=== PATIENT | female | born 1965 | race Caucasian/White ===

== ENCOUNTER 2023-07-24 14:50 | Outpatient (AMB) | payer OTHER, SELFPAY ==
[2023-07-24 15:38] VITALS: BP 122/68; PULSE 87; TEMP 36.7; O2SAT 99; BMI 39.6
--- NOTE | 2023-07-24 15:38 | AM.OFFWIN_ITS ---
Intake Vital Signs 07/24/23 15:38 Height 5 ft 5 in Weight 238 lb 4 oz BMI 39.6 BP 122/68 Blood Pressure Location Lt brachial Position Sitting Pulse 87 Pulse Source Pulse Oximeter Temp 98.0 F Temp Source Temporal Artery Scan Pulse Oximetry (%) 99 Oxygen Delivery Method Room Air Intake Visit Reasons: EP, fatigue, headache Intake Note: pt is here for c/o fatigue and headache states she was in [place] was diagnosed with pneumonia and feels like it might have came back Patient Tobacco Use Status: Never used Tobacco Allergies No Known Allergies Allergy (Verified 07/24/23 15:58) Medication List - Last Reconciled 07/24/23 by Naeem Kearney MD atorvastatin 80 mg PO DAILY blood-glucose sensor (Dexcom G6 Sensor device) As directed blood-glucose transmitter (Dexcom G6 Transmitter device) As directed bupropion HCl 300 mg PO QAM clonidine HCl 0.1 mg PO BID dapagliflozin propanediol (Farxiga) 5 mg PO DAILY dulaglutide (Trulicity) 1.5 mg subcut QWEEK gabapentin 300 mg PO TID gabapentin 200 mg PO BEDTIME hydroxyzine HCl 10 mg PO DAILY PRN hyoscyamine sulfate 0.125 mg PO QID PRN insulin aspart U-100 (Novolog FlexPen U-100 Insulin aspart) subcut insulin glargine (Basaglar KwikPen U-100 Insulin) 55 units subcut BEDTIME lisinopril 10 mg PO DAILY pantoprazole 20 mg PO QAM tramadol 50 mg PO Q6H PRN trazodone 100 mg PO BEDTIME Do you need a note to return to daycare/school/sports/work: Yes HPI EP, fatigue, headache HPI Details 58-year-old female presents to the [facility] for a sick visit. Patient is reporting exertional shortness of breath for the past week. She was in [place] a week to 10 days ago when she was hospitalized for diabetic ketoacidosis and pneumonia. She was discharged home and she flew 8 hours. Subsequent to her arrival here, her shortness of breath symptoms seem to have worsened. She came in with a walker. 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 Current occupational exposures/hazards: No Cognitive needs: No Hearing needs: No Vision needs: No Physical Exam Vital Signs: Last Vital Signs Temp 98.0 F 07/24/23 15:38 Pulse 87 07/24/23 15:38 BP 122/68 07/24/23 15:38 Pulse Ox 99 07/24/23 15:38 Oxygen Delivery Method Room Air 07/24/23 15:38 BMI result Body Mass Index 39.6 Const General: cooperative and healthy appearing Nutritional Appearance: well nourished Orientation/consciousness: patient oriented x3 Limitations: no limitations HEENT Head: Yes normal to inspection Eyes General: appearance normal, both eyes and all related structures Neck Neck: Yes normal visual inspection Chest Chest palpation & inspection: normal palpation of entire chest wall Resp Effort & Inspection: normal respiratory effort Cardio Other: Tachycardia. Neuro General: patient oriented x3 Assessment & Plan Assessment & Plan (1) Shortness of breath: Code(s): R06.02 - Shortness of breath Plan: With recent air travel, pulmonary embolism should be ruled out. Patient was referred to the emergency room to get her high-resolution CT scan. ER triage was notified of patient's arrival. Coding Level of Care Code Est Pt Level 4 (57275) Diagnoses Shortness of breath R06.02
== END 2023-07-24 16:22 | disposition home or self-care (01) ==
PROVIDERS: PCP Nurse Practitioner Family; Visit Provider Internal Medicine
DX: R06.02 Shortness of breath (principal)
CPT/HCPCS: 99214

== ENCOUNTER 2023-07-24 16:24 | Inpatient (IN) | payer BC, SELFPAY ==
--- NOTE | ~2023-07-24 | XR_ITS ---
EXAMINATION: XR CHEST CLINICAL INFORMATION: Shortness of breath. COMPARISON: None available. TECHNIQUE: 2 views of the chest were obtained. FINDINGS: The lung volumes are low. The cardiomediastinal silhouette is within normal limits. There is right upper lobe consolidation. The bony structures and soft tissues are unremarkable XR/XR chest 2V IMPRESSION: Right upper lobe consolidation. Suspect pneumonia. Correlation and follow-up needed.
--- NOTE | ~2023-07-24 | US_ITS ---
EXAMINATION: US VENOUS WITH DOPPLER UPPER EXTREMITY, RIGHT CLINICAL INFORMATION: Right arm swelling. COMPARISON: None available. TECHNIQUE: Ultrasound of the upper extremity is performed using compression sonography and color and pulse Doppler flow with assessment of augmentation of flow. There is also imaging and Doppler assessment of the jugular and subclavian veins. Spectral analysis with color-flow imaging is performed. FINDINGS: Respiratory variation, normal compression, and augmented flow are noted throughout the upper extremity including the axillary, brachial, cephalic, and radial and ulnar veins. There is normal flow in the internal jugular and subclavian veins. There is no visible deep or superficial thrombophlebitis. If the patient's symptoms progress, a followup ultrasound in 5 -7 days might be of value to exclude proximal propagation from a nonvisualized distal arm vein. US/US venous duplex UE RT IMPRESSION: No DVT demonstrated in the right upper extremity.
--- NOTE | ~2023-07-24 | CT_ITS ---
EXAMINATION: CT ANGIOGRAM OF THE CHEST WITH AND WITHOUT CONTRAST (CT PULMONARY ANGIOGRAM FOR PE) CLINICAL INFORMATION: Reason for Exam shortness of breath, dizziness, elevated dimer COMPARISON: Chest x-ray from the same day TECHNIQUE: Prior to contrast administration, noncontrast localization images were obtained. Subsequently, multidetector volumetric imaging was performed from the thoracic inlet to below the diaphragms following the administration of 65 mL Omnipaque 350 intravenous contrast. No contrast reaction reported Sagittal, coronal, and MIP oblique sagittal reformatted images were obtained on the CT workstation, uploaded to PACS, and reviewed. This CT examination was performed using dose optimization techniques as appropriate, variously including the following: *Automated exposure control *Adjustment of mA and/or kV according to patient size (this includes techniques or standardized protocols for targeted exams where dose is matched to indication/reason for exam; i.e. extremities or head) *Use of iterative reconstruction technique Total exam dose-length product 471 mGy-cm FINDINGS: QUALITY OF STUDY/CONTRAST BOLUS: Satisfactory. PULMONARY ARTERIES: No pulmonary emboli. THORACIC AORTA: No evidence of aneurysm or dissection. Mild scattered atherosclerotic calcification. LUNG: There is extensive consolidation throughout the right upper lobe and to a lesser extent patchy consolidation in the right middle lobe. PLEURA: No pleural effusion or pneumothorax. MEDIASTINUM: The visualized thyroid gland is unremarkable. There are subcentimeter mediastinal lymph nodes within the range of normal variation. Mild cardiomegaly without pericardial effusion. CORONARY ARTERY CALCIFICATION: Present CHEST WALL/AXILLA: No axillary or internal mammary lymphadenopathy. OSSEOUS STRUCTURES: No acute or suspicious osseous abnormality. UPPER ABDOMEN: Visualized spleen appears mildly enlarged. Patient is status post cholecystectomy. No reflux of contrast into the hepatic veins to suggest elevated right heart pressures. CT/CT angio chest PE protocol IMPRESSION: 1. No pulmonary embolus identified. 2. Extensive consolidation throughout the right upper lobe and to a lesser extent patchy consolidation in the right middle lobe, suspicious for pneumonia. Imaging follow-up is recommended to assess for resolution. VTE: negative.
[2023-07-24 17:13] VITALS: BP 113/56; PULSE 89; RESP 20; TEMP 36.3; O2SAT 100; BMI 39.8
--- NOTE | 2023-07-24 17:15 | ED.GENADULT ---
HPI - General Adult General Chief complaint: Dyspnea Stated complaint: SOB, blood clot ? Time Seen by Provider: 07/24/23 18:46 Source: patient Mode of arrival: ambulatory Limitations: no limitations History of Present Illness HPI narrative: Patient is a 58-year-old female who presents emergency department for evaluation of shortness of breath. She recently traveled to [place], approximately 2 weeks prior she tested positive for COVID-19, she continued to have symptoms, she was evaluated at an urgent care 07/03/2023 and diagnosed with COVID bronchitis for which she was treated with an inhaler and Tessalon. She presents with discharge paperwork from a hospital in [place] she was admitted there 07/10/2023-07/18/2023 for DKA, sepsis secondary to CAP with positive strep pneumo ur ag, negatuve ur legionella, was treated with a 7 day course of ceftriaxone 2 g IV, NSTEMI with Trop peak 51. She traveled home 07/19/2023 by plane. She states for a few days she was noting improvement in her shortness of breath. Today she noticed suddenly worsening shortness of breath, was unable to complete taking a shower due to her difficulty breathing, she continues to have a productive cough, denies fevers or chills, she has notable weakness, at baseline she has limited mobility due to chronic pain secondary to Charcot foot. She also endorses that she has continued to experience lightheadedness and dizziness, upon review she was having orthostatic hypotension wall hospitalized, 1 of her blood pressure medications were discontinued. Related Data Home Medications Medication Instructions Recorded Confirmed atorvastatin 80 mg tablet 80 mg PO DAILY 02/28/23 07/24/23 blood-glucose sensor (Dexcom G6 #1 ea 02/28/23 02/28/23 Sensor device) blood-glucose transmitter (Dexcom #1 ea 02/28/23 02/28/23 G6 Transmitter device) bupropion HCl 300 mg 24 hr tablet, 300 mg PO QAM 02/28/23 07/24/23 extended release clonidine HCl 0.1 mg tablet 0.1 mg PO BID 02/28/23 07/24/23 dulaglutide 1.5 mg/0.5 mL 1.5 mg subcut QWEEK 02/28/23 07/24/23 subcutaneous pen injector ([facility]) gabapentin 300 mg capsule 300 mg PO TID 02/28/23 07/24/23 hydroxyzine HCl 10 mg tablet 10 mg PO DAILY PRN Anxiety 02/28/23 07/24/23 hyoscyamine sulfate 0.125 mg tablet 0.125 mg PO QID PRN cramps 02/28/23 07/24/23 insulin aspart U-100 100 unit/mL subcut 02/28/23 02/28/23 (3 mL) subcutaneous pen (Novolog FlexPen U-100 Insulin aspart) insulin glargine 100 unit/mL (3 55 unit subcut BEDTIME 02/28/23 02/28/23 mL) subcutaneous pen (Basaglar KwikPen U-100 Insulin) pantoprazole 20 mg tablet,delayed 20 mg PO QAM 02/28/23 07/24/23 release tramadol 50 mg tablet 50 mg PO Q6H PRN Pain 02/28/23 07/24/23 trazodone 100 mg tablet 100 mg PO BEDTIME 02/28/23 07/24/23 Allergies Allergy/AdvReac Type Severity Reaction Status Date / Time No Known Allergies Allergy Verified 07/24/23 15:58 Review of Systems Review of Systems: Yes all other systems are reviewed and are negative [facility]LY [facility] Past Medical History Attestation statement: The following information was validated with the patient. Source: old records reviewed Medical History Pneumonia Sepsis Barretts esophagus Dyslipidemia HTN (hypertension) Charcot's joint of foot Diabetes Surgical History H/O: hysterectomy Family History Family History Son Substance use disorder Father Substance use disorder Mother Substance use disorder Family/Other Substance use disorder Social History Social History Housing: Condominium Patient Tobacco Use Status: Never used Tobacco e-Cigarette/Vaping Use: Never Used Second Hand Smoke Exposure: No Advance Directives: No Advance Directives Information Provided: No service: No Current occupational status: employed 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 No acute distress.?Normal affect. Eyes: Pupils equal, round and reactive to light.? ENT: Pharynx normal.?? Neck: Normal inspection.? Neck supple.?? CVS: Heart sounds normal. Normal heart rate and rhythm.? Pulses normal.?? Respiratory: No respiratory distress.? Lung sounds with rhonchi bilaterally, diminished bases Abdomen: Soft and non-tender. Normoactive bowel sounds. Skin: Skin warm and dry.? Normal skin color.? Extremities: No lower extremity edema.? No calf ttp? Neuro: Moves all extremities spontaneously. Sensation intact bilaterally. No focal neuro deficits. Ambulates with slow unsteady gait Course Course Course Narrative: This is a rapid medical exam. Deferred additional HPI, ROS, PE to primary provider. 58 yo female with history of DM, HTN, HLD, GERD here with complaint of SOB. Recent admit in [place] for DKA, CAP. Flew home one week ago. Went to with concern for SOB and referred in further evaluation. Will obtain labs, CXR, EKG, viral testing VSS Reevaluation(s) Reevaluation #1: CBC is without leukocytosis, there is a normocytic anemia not needing transfusion criteria. CMP revealing BUN of 26 creatinine 1.03 without prior labs available for comparison. No lactic acidosis. High sensitive troponin is negative. BNP within normal range. Chest x-ray revealing a right upper lobe infiltrate, in the setting of recent pneumonia as per HPI, this is consistent, however given that she had improvement of her symptoms and sudden worsening of her symptoms today with recent travel and immobilization will obtain D-dimer to exclude pulmonary embolism as alternative etiology for symptoms. Given recent cap, will cover with Rocephin at this time, does not meet SIRS criteria, not consistent with sepsis. Attempted ambulatory O2 trial with patient, she is notably dyspnea, O2 saturation as low as 88% on room air. Reevaluation #2: D-dimer is elevated, will obtain CT angio of the chest to exclude pulmonary embolism . Reviewed this case with hospitalist, Dr. Fernández, who accepts patient for admission to medicine service. She is agreeable with hospital admission. Time: 21:12 Reevaluation #3: CT angio negative for pulmonary embolism. Medications Administered Generic Name Dose Route Start Last Admin Trade Name Freq PRN Reason Stop Dose Admin Acetaminophen 650 mg 07/24/23 22:24 07/25/23 00:21 Acetaminophen 325 Mg Tablet PO 650 mg Q6H PRN Administration Pain, Mild (Pain Scale 1-3) Sodium Chloride 1,000 mls @ 100 mls/hr 07/24/23 22:30 07/25/23 00:10 Ns IVCONT 100 mls/hr .Q10H BELLA Administration Insulin Glargine 38 unit 07/24/23 22:45 07/25/23 00:09 Insulin Glargine,Hum.Rec.Anlog 100 Unit/Ml 10 Ml Vial SUBCUT 38 unit BEDTIME BELLA Administration Sodium Chloride 3 ml 07/25/23 00:00 07/25/23 00:12 0.9 % Sodium Chloride Flush 3 Ml Syringe IVFLUSH 3 ml QSHIFT BELLA Administration Discontinued Medications Generic Name Dose Route Start Last Admin Trade Name Freq PRN Reason Stop Dose Admin Ceftriaxone Sodium 2 gm/ 50 mls @ 100 mls/hr 07/24/23 21:11 07/24/23 22:30 Sodium Chloride IV 07/24/23 21:40 Infused ONCE ONE Infusion Iohexol 65 ml 07/24/23 23:34 07/24/23 23:34 Iohexol 350 Mg/Ml 100 Ml Infus..Btl IV 07/24/23 23:35 65 ml ONCE ONE Administration Medical Decision Making Medical Decision Making [facility] Narrative: Patient is a 58-year-old female with past medical history of type 2 diabetes, hyperlipidemia, Amos's esophagus, hypertension, GERD, anxiety, depression presented to emergency department with worsening shortness of breath after recent admission for sepsis secondary to cap as per HPI. Her family is present at bedside and they notice that she is increasingly weak, and having a hard time breathing with minimal exertion. She was treated with a 7 day course of ceftriaxone 2 g daily and did not receive any oral antibiotics upon discharge. She was having improvement in her symptoms until today when things seem to be worsening again. Will obtain CBC to evaluate for leukocytosis/ anemia, CMP and lipase to evaluate for abnormal electrolytes /abnormal renal function/ abnormal hepatic/biliary function, EKG and troponin to evaluate for ischemia/ACS. Chest x-ray to evaluate for consolidation/ infiltrate/ mass/ pulmonary congestion and Urinalysis. Differential Diagnosis Differential Diagnoses: The differential diagnosis associated with the presentation includes (Pneumonia, ACS, pulmonary embolism, viral syndrome) Admission/Observation Consideration of admission/observation: Escalation of care including admission/observation considered (As per course narrative) Consult Healthcare Provider Management of the patient was discussed with: Hospitalist (As per course narrative) Lab Data MDM Lab Attestation statement: I reviewed the patient's lab results. (As per course narrative) 07/24/23 17:59 07/24/23 17:59 Labs: Lab Results 07/24/23 07/24/23 Range/Units 17:59 21:11 WBC 8.6 (4.8-10.8) X10*3/uL RBC 3.70 L (4.20-5.50) X10*6/uL Hgb 10.0 L (12.0-16.0) g/dl Hct 32.0 L (37.0-47.0) % MCV 86.5 (80.0-98.0) fL MCH 27.0 (27.0-33.0) pg MCHC 31.3 (31.0-35.0) g/dl RDW 14.5 (11.0-16.0) % Plt Count 369 (160-400) X10*3/uL MPV 8.5 L (9.4-12.3) fL Immature Gran % (Auto) 0.4 (0.0-0.4) % Neut % (Auto) 54.5 (45-73) % Lymph % (Auto) 37.0 (20-40) % Meriwether % (Auto) 4.3 (2-11) % Eos % (Auto) 2.9 (0-4) % Baso % (Auto) 0.9 (0-2) % Lymph # (Auto) 3.2 (1.2-4.9) X10*3/uL Meriwether # (Auto) 0.4 (0.1-1.2) X10*3/uL Eos # (Auto) 0.3 (0.0-0.4) X10*3/uL Baso # (Auto) 0.1 (0.0-0.2) X10*3/uL Abs Immat Gran (auto) 0.03 (0.00-0.03) X10*3/uL Absolute Neuts (auto) 4.7 (2.0-8.3) x10*3/uL Absolute Nucleated RBC 0.000 (0.0-0.012) X10*3/uL Nucleated RBC % (auto) 0.0 (0.0-0.2) /100WBC PT 11.7 (11.1-13.3) SEC INR 1.0 (0.9-1.1) D-Dimer High Sensitivty 373 NG/ML Sodium 138 (135-145) mmol/L Potassium 5.0 (3.3-5.1) mmol/L Chloride 108 (96-108) mmol/L Carbon Dioxide 22 (22-29) mmol/L Anion Gap 13 (12-20) BUN 26 H (9-16) mg/dL Creatinine 1.03 (0.5-1.4) mg/dL Estim Creat Clear Calc 73.8 Estimated GFR 55 POC Glucose 71 (60-115) mg/dL Random Glucose 127 H (60-115) mg/dL Lactic Acid 1.7 (0.5-2.0) mmol/L Calcium 9.7 (8.4-10.2) mg/dL Magnesium 1.8 (1.6-2.6) mg/dL Total Bilirubin 0.3 (0.0-1.0) mg/dL Direct Bilirubin 0.1 (0.0-0.5) mg/dL AST 20 (5-31) U/L ALT 17 (0-31) U/L Alkaline Phosphatase 106 (39-117) U/L Troponin I High Sens < 2.7 (<3.5-17.0) ng/L B-Natriuretic Peptide 28 (<100) pg/mL Total Protein 7.1 (6.5-8.0) g/dL Albumin 3.2 L (3.5-5.0) g/dL Influenza Type A (PCR) NEGATIVE (Negative) Influenza Type B (PCR) NEGATIVE (Negative) RSV RNA Qual (PCR) NEGATIVE (Negative) SARS-CoV-2 RNA (RT-PCR) NEGATIVE (Negative) Independent Interpretation I performed an independent interpretation of an: Plain X-Ray (I personally interpreted chest x-ray and agree with radiologist impression, right upper lobe consolidation) Radiology Impression Discussion of test interpretation with radiology: I have reviewed the radiologist's reading. Radiologist Impression: XR/XR chest 2V IMPRESSION: Right upper lobe consolidation. Suspect pneumonia. Correlation and follow-up needed. CT/CT angio chest PE protocol IMPRESSION: 1. No pulmonary embolus identified. 2. Extensive consolidation throughout the right upper lobe and to a lesser extent patchy consolidation in the right middle lobe, suspicious for pneumonia. Imaging follow-up is recommended to assess for resolution. Independent Historian Clinical information obtained from an independent historian. History obtained from or confirmed by: Other (Sister present at bedside who confirms history) External Record Review External record reviewed: Inpatient record (Patient provided external records from [facility]) Discharge Plan Discharge Clinical Impression: Dyspnea Patient Disposition: Admitted As Inpatient
--- NOTE | 2023-07-24 17:16 | ECG_ITS ---
Test Reason : SOB Blood Pressure : / mmHG Vent. Rate : 084 BPM Atrial Rate : 084 BPM P-R Int : 200 ms QRS Dur : 080 ms QT Int : 384 ms P-R-T Axes : -01 055 -01 degrees QTc Int : 453 ms Normal sinus rhythm Anteroseptal infarct , age undetermined Nonspecific T wave abnormality Inferior leads Abnormal ECG No previous ECGs available Referred By: Cee Cowan Electronically Signed By:ALEJANDRO CASTAÑEDA MD
[2023-07-24 18:10] LABS: MANUAL DIFF FLAG NO
[2023-07-24 18:12] LABS: Basophils Absolute Auto 0.1 X10*3/uL (0.0-0.2); Basophils Percent Auto 0.9 % (0-2); Eosinophils Absolute Auto 0.3 X10*3/uL (0.0-0.4); Eosinophils Percent Auto 2.9 % (0-4); Imm Gran Abs Auto 0.03 X10*3/uL (0.00-0.03); Imm Gran Pct Auto 0.4 % (0.0-0.4); Lymphocytes Absolute Auto 3.2 X10*3/uL (1.2-4.9); Mean Corpuscular HGB Conc 31.3 g/dl (31.0-35.0); Mean Corpuscular Volume 86.5 fL (80.0-98.0); Mean Platelet Volume 8.5 fL (9.4-12.3); Monocytes Absolute Auto 0.4 X10*3/uL (0.1-1.2); Monocytes Percent Auto 4.3 % (2-11); Neutrophils Absolute Auto 4.7 x10*3/uL (2.0-8.3); Neutrophils Percent Auto 54.5 % (45-73); Platelet Count 369 X10*3/uL (160-400); Red Cell Distribution Width 14.5 % (11.0-16.0); White Blood Count 8.6 X10*3/uL (4.8-10.8)
[2023-07-24 18:20] LABS: Prothrombin Time 11.7 SEC (11.1-13.3)
[2023-07-24 18:24] LABS: Lactic Acid 1.7 mmol/L (0.5-2.0)
[2023-07-24 18:29] LABS: Alanine Aminotransferase 17 U/L (0-31); Albumin Level 3.2 g/dL (3.5-5.0); Alkaline Phosphatase 106 U/L (39-117); Anion Gap 13 (12-20); Aspartate Amino Transferase 20 U/L (5-31); Bilirubin Direct 0.1 mg/dL (0.0-0.5); Bilirubin Total 0.3 mg/dL (0.0-1.0); Blood Urea Nitrogen 26 mg/dL (9-16); Calcium 9.7 mg/dL (8.4-10.2); Carbon Dioxide 22 mmol/L (22-29); Chloride 108 mmol/L (96-108); Creatinine Clr Calc Pharmacy 73.8; Estimated Glomerular Filt Rate 55; Glucose Random 127 mg/dL (60-115); Magnesium 1.8 mg/dL (1.6-2.6); Sodium 138 mmol/L (135-145); Total Protein 7.1 g/dL (6.5-8.0)
[2023-07-24 18:32] LABS: B Type Natriuretic Peptide 28 pg/mL (<100)
[2023-07-24 18:39] LABS: Troponin-I High Sensitivity < 2.7 ng/L (<3.5-17.0)
[2023-07-24 19:22] LABS: Influenza A PCR NEGATIVE (Negative); Influenza B PCR NEGATIVE (Negative); Resp Syncy Virus RNA Qual PCR NEGATIVE (Negative); SARS COV2 PCR INHOUSE NEGATIVE (Negative)
--- NOTE | 2023-07-24 20:27 | MHC.EDTECH ---
WHILE AMBULATING WITH WALKER, PT'S O2 DROPPED TO 88%. PT STATED SHE WAS SOB WHILE AMBULATING.
--- NOTE | 2023-07-24 20:30 | PC.NURSE ---
This jingle writer assumed care 1900, Pt AOx3, pt reporting a 6/10 a headache, pt reports SOB mainly with exertion. Pt resting, calm and cooperative, pt aware of plan of care.
[2023-07-24 20:31] LABS: D Dimer High Sensitivity 373 NG/ML
[2023-07-24 21:22] LABS: Glucose, Whole Blood 71 mg/dL (60-115)
[2023-07-24] MEDS: cefTRIAXone sodium 2 GM in 0.9 % Sodium Chloride 50 ML IV (21:54)
--- NOTE | 2023-07-24 21:54 | PC.NURSE ---
pt medicated per nov. Notified BRISSA Elliso
--- NOTE | 2023-07-24 22:27 | PM.IMHP ---
History of Present Illness Date of Service: 07/24/23 Attending physician on admission: Olga Fernández Chief Complaint: sob 58-year-old female with history of hypertension, dyslipidemia, Amos's esophagus, type 2 diabetes, Charcot foot presented to the ED earlier today for evaluation of dyspnea both at rest and with exertion and positional lightheadedness. Patient tells me she was diagnosed with COVID-19 on 06/22 with relatively mild symptoms. However then flew to [place] and reports vomited x7 days with significant weakness and falls. EMS transferred patient to the hospital and she was admitted to the ICU and a [place] hospital for DKA and RUL/RML pneumonia with sepsis x8 days and NSTEMI with discharge on 07/18. She did not require supplemental O2 but was treated with 2 g IV ceftriaxone x7 days for strep pneumo community-acquired pneumonia. She was also noted to have orthostatic hypotension treated with IV fluids and compression stockings. Hemoglobin A1c was elevated at 11.5. Throughout admission, Glucose levels normalized and she reports well-controlled blood glucose levels since arrival home. She tells me she had been feeling better no developed significant dyspnea both at rest and with exertion earlier today. She has no known chronic lung disease. She does have a nonproductive cough but states this has been ongoing. No fevers or chills. No known sick contacts. She did have some pleuritic chest pain in the right upper chest this has resolved. She has also had 2 prolonged flights to and from [place] within the last month. No known history of DVT or PE. She has been eating and drinking without difficulty. On arrival, patient afebrile, no hypoxia or hypotension. Patient is noted to be significantly dyspneic on exertion, but no ambulatory hypoxia noted on my exam. There is no leukocytosis. Renal function normal, electrolyte levels normal. Glucose 127. Lactic acid 1.7. Troponin undetectable, BNP 28. Negative for influenza, COVID-19, RSV. Chest x-ray shows right upper lobe consolidation, likely residual infiltrate from recently treated pneumonia. EKG shows normal sinus rhythm, rate 84 with t wave inversions in III and , no lata or depressions. In the ED has received 2 g IV ceftriaxone. CTA chest pending. Review of Systems Review of Systems: General: No fevers, malaise, unintentional weight loss HEENT: No blurred vision, diplopia. No sore throat, nasal congestion, rhinorrhea, sinus pain, ear pain Cardiovascular: No chest pain, palpitations, or leg edema Respiratory: +sob at rest, +CHRISTIANSON, +cough. GI: No abdominal pain, nausea, vomiting, diarrhea, constipation : No dysuria, hematuria, increased urinary frequency, decreased urinary output MSK: No myalgia, back pain Neuro: No headaches, weakness, paresthesias. +lightheadness Skin: No rashes or lesions [facility] Medical History Pneumonia Sepsis Barretts esophagus Dyslipidemia HTN (hypertension) Charcot's joint of foot Diabetes Family History Son Substance use disorder Father Substance use disorder Mother Substance use disorder Family/Other Substance use disorder Surgical History H/O: hysterectomy Social History Housing: Condominium Patient Tobacco Use Status: Never used Tobacco e-Cigarette/Vaping Use: Never Used Second Hand Smoke Exposure: No Advance Directives: No Advance Directives Information Provided: No service: No Current occupational status: employed 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 Current occupational exposures/hazards: No Cognitive needs: No Hearing needs: No Vision needs: No Meds Allergies Allergy/AdvReac Type Severity Reaction Status Date / Time No Known Allergies Allergy Verified 07/24/23 15:58 Home Medications Medication Instructions Recorded Confirmed Last Taken Type atorvastatin 80 mg tablet 80 mg PO DAILY 02/28/23 07/24/23 Unknown History blood-glucose sensor (Dexcom G6 #1 ea 02/28/23 02/28/23 Unknown History Sensor device) blood-glucose transmitter (Dexcom #1 ea 02/28/23 02/28/23 Unknown History G6 Transmitter device) bupropion HCl 300 mg 24 hr tablet, 300 mg PO QAM 02/28/23 07/24/23 Unknown History extended release clonidine HCl 0.1 mg tablet 0.1 mg PO BID 02/28/23 07/24/23 Unknown History dulaglutide 1.5 mg/0.5 mL 1.5 mg subcut QWEEK 02/28/23 07/24/23 Unknown History subcutaneous pen injector (Trulicity) gabapentin 300 mg capsule 300 mg PO TID 02/28/23 07/24/23 Unknown History hydroxyzine HCl 10 mg tablet 10 mg PO DAILY PRN Anxiety 02/28/23 07/24/23 Unknown History hyoscyamine sulfate 0.125 mg tablet 0.125 mg PO QID PRN cramps 02/28/23 07/24/23 Unknown History insulin aspart U-100 100 unit/mL subcut 02/28/23 02/28/23 Unknown History (3 mL) subcutaneous pen (Novolog FlexPen U-100 Insulin aspart) insulin glargine 100 unit/mL (3 55 unit subcut BEDTIME 02/28/23 02/28/23 Unknown History mL) subcutaneous pen (Basaglar KwikPen U-100 Insulin) pantoprazole 20 mg tablet,delayed 20 mg PO QAM 02/28/23 07/24/23 Unknown History release tramadol 50 mg tablet 50 mg PO Q6H PRN Pain 02/28/23 07/24/23 Unknown History trazodone 100 mg tablet 100 mg PO BEDTIME 02/28/23 07/24/23 Unknown History Physical Exam Vital Signs and Narrative: Vital Signs: Last Vital Signs Temp 97.3 F 07/24/23 17:13 Pulse 89 07/24/23 17:13 Resp 20 07/24/23 17:13 BP 113/56 L 07/24/23 17:13 Pulse Ox 100 07/24/23 17:13 O2 Del Method Room Air 07/24/23 17:13 BMI result Body Mass Index 39.8 Constitutional - Awake and Alert, No apparent distress Eyes - PERRLA, EOMI Cardiovascular - S1S2, RRR, No edema Respiratory - Normal lung expansion, Normal respiratory effort at rest, No respiratory distress at rest, moderate distress with exertion with increased work of breathing, CTA bilaterally Gastrointestinal - NT / ND; +BS; No rebound or guarding Extremities - no calf tenderness bilaterally, no swelling Skin - Warm/Dry Neurological - Alert & oriented x3, CN II-XII in tact Psychological - Appropriate affect Results Labs 07/24/23 17:59 07/24/23 17:59 Labs: Laboratory Results - last 24 hr 07/24/23 07/24/23 17:59 21:11 MCV 86.5 MCH 27.0 MCHC 31.3 RDW 14.5 Plt Count 369 MPV 8.5 L Immature Gran % (Auto) 0.4 Neut % (Auto) 54.5 Lymph % (Auto) 37.0 [place] % (Auto) 4.3 Eos % (Auto) 2.9 Baso % (Auto) 0.9 Lymph # (Auto) 3.2 [place] # (Auto) 0.4 Eos # (Auto) 0.3 Baso # (Auto) 0.1 Abs Immat Gran (auto) 0.03 Absolute Neuts (auto) 4.7 Absolute Nucleated RBC 0.000 Nucleated RBC % (auto) 0.0 PT 11.7 INR 1.0 D-Dimer High Sensitivty 373 Anion Gap 13 Estim Creat Clear Calc 73.8 Estimated GFR 55 POC Glucose 71 Random Glucose 127 H Lactic Acid 1.7 Calcium 9.7 Magnesium 1.8 Total Bilirubin 0.3 Direct Bilirubin 0.1 AST 20 ALT 17 Alkaline Phosphatase 106 B-Natriuretic Peptide 28 Total Protein 7.1 Albumin 3.2 L Influenza Type A (PCR) NEGATIVE Influenza Type B (PCR) NEGATIVE RSV RNA Qual (PCR) NEGATIVE SARS-CoV-2 RNA (RT-PCR) NEGATIVE Imaging Radiologist's Impressions: Impressions Chest X-Ray 07/24/23 17:37 IMPRESSION: Right upper lobe consolidation. Suspect pneumonia. Correlation and follow-up needed. Assessment and Plan (1) Shortness of breath: Status: Acute (2) Pre-syncope: Status: Acute Plan 58-year-old female with history of hypertension, dyslipidemia, Amos's esophagus, type 2 diabetes, Charcot foot to be observed for presyncope and dyspnea of unclear etiology. #Presyncope- likely orthostatic - persistent orthostatic hypotension noted during [place] hospitalization. Wears compression stockings - IV NS @100 ml/hr - Check orthostatic vs am - continue compression stockings - Monitor on telemetry - Echo ordered #Dyspnea- both at rest but worse with exertion -no hypoxia (rest or ambulatory) -Negative for covid 19, rsv, influenza -CXR shows RUL/RML infiltrate (likely residual from recently treated strep pneumoniae pneumonia treated with IV ceftriaxone in [place] with dc 07/18). No fevers, leukocytosis, has ongoing nonproductive cough. Low suspicion for acute pneumonia -DDimer elevated, CTA chest pending rule out PE (recent hospitalization and 2 flights in the last month) -Trop undetectable, BNP WNL -Echo ordered -check viral respiratory panel # insulin-dependent type 2 diabetes -last hemoglobin A1c 11.5% -continue dose adjusted basal insulin -Humalog on sliding scale -POC glucose -diabetic diet # hypertension -pressure reasonably controlled -continue clonidine, lisinopril # Amos's esophagus -continue PPI DVT prophylaxis- Lovenox Full code Time Spent With Patient Time: Total time managing care of this patient today ____ minutes. Quality Stroke Does the patient have a stroke diagnosis?: No VTE Prior VTE?: No VTE Risk Level:: Medical - moderate - high VTE Device Contraindication: Treatment Not Indicated VTE Drug Contraindication: N/A - Med Ordered
--- NOTE | 2023-07-24 22:32 | PC.NURSE ---
PA into assess pt, plan is for pt to be admitted. IV placed, medicated per nov, Notified Rn Jacqueline. Family member took home wallet and other personal belonging.
[2023-07-24 23:07] VITALS: BP 108/66; PULSE 88; RESP 14; O2SAT 93
[2023-07-24] MEDS: iohexoL 350 MG/ML 100 ML INFUS..BTL 65 ML IV (23:34)
[2023-07-25] VITALS (9 sets, daily range): BP systolic 90–150; BP diastolic 58–80; PULSE 80–96; RESP 12–20; TEMP 36.2–36.7; O2SAT 93–100
[2023-07-25] MEDS: Insulin Glargine,Hum.rec.anlog 100 UNIT/ML 10 ML VIAL 38 UNIT SUBCUT ×2 (00:09→21:04)
[2023-07-25] MEDS: 0.9 % Sodium Chloride 1,000 ML 100 ML IVCONT ×3 (00:10→21:16)
[2023-07-25] MEDS: 0.9 % Sodium Chloride Flush 3 ML SYRINGE IVFLUSH ×2 (00:12→21:06)
[2023-07-25] MEDS: Acetaminophen 325 MG TABLET 650 MG PO ×2 (00:21→21:09)
[2023-07-25 00:28] LABS: Glucose, Whole Blood 85 mg/dL (60-115)
--- NOTE | 2023-07-25 01:30 | PC.NURSE ---
Pt reporting a headache, Tylenol given per NOV, pt reports effectiveness.
[2023-07-25 05:59] LABS: MANUAL DIFF FLAG NO
[2023-07-25 06:01] LABS: Basophils Absolute Auto 0.1 X10*3/uL (0.0-0.2); Basophils Percent Auto 1.1 % (0-2); Eosinophils Absolute Auto 0.3 X10*3/uL (0.0-0.4); Hematocrit 29.5 % (37.0-47.0); Hemoglobin 9.2 g/dl (12.0-16.0); Imm Gran Abs Auto 0.03 X10*3/uL (0.00-0.03); Imm Gran Pct Auto 0.5 % (0.0-0.4); Lymphocytes Absolute Auto 2.7 X10*3/uL (1.2-4.9); Lymphocytes Percent Auto 41.1 % (20-40); Mean Corpuscular HGB Conc 31.2 g/dl (31.0-35.0); Mean Corpuscular Hemoglobin 27.1 pg (27.0-33.0); Mean Corpuscular Volume 86.8 fL (80.0-98.0); Mean Platelet Volume 8.7 fL (9.4-12.3); Monocytes Absolute Auto 0.5 X10*3/uL (0.1-1.2); Monocytes Percent Auto 7.1 % (2-11); Neutrophils Percent Auto 46.2 % (45-73); Platelet Count 294 X10*3/uL (160-400); Red Cell Distribution Width 14.7 % (11.0-16.0); White Blood Count 6.5 X10*3/uL (4.8-10.8)
[2023-07-25 06:13] LABS: Appearance Urine Clear; Color Urine Yellow; Glucose Urine UA Negative (Negative); Leukocyte Esterase Urine Moderate (2+) (Negative); Nitrite Urine Negative (Negative); Specific Gravity - Urine 1.025 (1.005-1.025); UMIC TRIGGER UACC YES; Urine Blood Negative (Negative); Urine Ketones Negative (Negative); Urine Protein 30 (1+) mg/dL (Neg-Trace)
[2023-07-25 06:18] LABS: Bacteria Urine None Seen (None Seen); Hyaline Casts Urine 0-2 /LPF (0-2); RBC Urine 0-2 /HPF (0-2); Squamous Epithelial Cell Urine 0-2 /HPF (0-2); UACC Culture Trigger YES; WBC Urine 21-50 /HPF (0-5)
[2023-07-25 06:20] LABS: Anion Gap 12 (12-20); Blood Urea Nitrogen 25 mg/dL (9-16); Calcium 9.1 mg/dL (8.4-10.2); Carbon Dioxide 20 mmol/L (22-29); Chloride 111 mmol/L (96-108); Creatinine Clr Calc Pharmacy 72.3; Estimated Glomerular Filt Rate 54; Glucose Random 109 mg/dL (60-115); Potassium 4.2 mmol/L (3.3-5.1); Sodium 139 mmol/L (135-145)
--- NOTE | 2023-07-25 06:51 | PC.NURSE ---
Pt ambulated to bathroom with walker and staff standby.
--- NOTE | 2023-07-25 07:00 | CA_ITS ---
Transthoracic Echocardiogram Patient (Last, First, Middle): Ewelina Mathis G Gender: Female Date of : 1965 Age: 58 Procedure Date: 07/25/2023 Procedure Type: Transthoracic Echocardiogram Location: ER Height: 165.1 cm Weight: 108.41 kg BSA: 2.13 m2 Heart Rate: 76 bpm BP: 90 / 58 mmHg Tank Washer: OMAYRA Referring MD: Aileen ESPINO Rn Rehab: Ankur Aguilar MD Symptoms: dyspnea Study Quality: Adequate ECG Rhythm: Sinus Conclusions: - 1. Normal LV ejection fraction 65-70% with grade 1 diastolic dysfunction 2. Normal cardiac valvular Doppler 3. Mildly dilated ascending aorta 3.7 cm 4. Normal RV systolic pressure 5. No gross pericardial effusion Findings Procedure Information Contrast agent, definity, is being given per protocol without apparent complications. Left Ventricle Normal left ventricular size, thickness, and systolic function. The visually estimated ejection fraction is between 65-70%. Spectral Doppler is indicative of an impaired relaxation filling pattern. E/E prime ratio is <8, consistent with normal filling pressures. Evidence suggests grade I (mild) diastolic dysfunction. Right Ventricle Mildly increased right ventricular cavity size. Atria The left atrium is normal in size. Interatrial shunt cannot be excluded. The right atrium is likely dilated. Aortic Valve There is mild calcification of the aortic valve. There is no aortic valve stenosis. There is no aortic valve regurgitation. Mitral Valve Normal mitral valve structure and function. There is trace mitral valve regurgitation. There is no mitral valve stenosis. Pulmonic Valve The pulmonic valve was not well visualized. Tricuspid Valve Likely normal tricuspid valve structure and function. There is trace tricuspid valve regurgitation. The right ventricular systolic pressure is normal. The right ventricular systolic pressure is 33 mmHg. Normal right atrial pressure. There is no evidence of pulmonary hypertension. Great Vessels The pulmonary artery was not well visualized. There is mild dilatation of the ascending aorta. Venous The inferior vena cava is normal in size and collapses greater than 50% with inspiration. Pericardium/Pleural There is no evidence of pericardial effusion. Prior Study Comparison No prior study available for comparison. Measurements 2D Linear Measurements IVSd: 1.18 0.6-0.9/0.6-1.0 cm LVIDd: 4.47 3.9-5.3/4.2-5.9 cm LVIDd Index: 2.10 2.4-3.2/2.2-3.1 cm/m2 LVIDs: 3.28 2.0-3.6 cm LVPWd: 0.98 0.7-1.1 cm LA Diam: 5.10 2.7-3.8/3.0-4.0 cm LAIDs Index: 2.39 1.5-2.3 cm/m2 LV Mass: 210.62 67-162/88-224 g LV Mass Index: 98.88 43-95/49-115 g/m2 LVOT Diam: 2.40 3.0+(-)1.3 cm 2D Systolic Function EF 4C: 69.20 >55% EF 2C: 69.80 >55% EF BiP: 69.80 >55% Mitral Valve MV Pk E: 0.59 MV PK A: 0.81 MV Decel Time: 192.00 E/A: 0.70 E'Lateral: 5.00 E'Medial: 5.33 E/E' Med: 11.00 E/E' Lat: 11.70 PHT: 56.00 MVA PHT: 3.93 Decel [place]: 3.06 Aortic Valve AoV Pk Tang: 1.17 AoV Mn Tang: 0.82 AoV VTI: 0.24 AoV Pk Grad: 5.00 Aov Mn Grad: 3.00 JOAN Cont.VTI: 3.76 LVOT LVOT Pk Tang: 0.89 LVOT Mn Tang: 0.63 LVOT VTI: 0.20 LVOT Pk Grad: 3.00 LVOT Mn Grad: 2.00 LVOT Diam: 2.40 LVOT Area: 4.52 Diastolic Function MV Pk E: 0.59 MV Pk A: 0.81 E/A: 0.70 E'Medial: 5.33 E/E' Med: 11.00 E' Laterial: 5.00 E/E' Lat: 11.70 Right Ventricle TAPSE (mm): 23.90 TVS' Tang: 11.50 Tricuspid Valve TR Pk Tang: 2.10 TR Pk Grad: 18.00 RA Press: 15.00 RVSP: 33.00 Great Vessels Aorta Sinus of Valsalva: 3.10 2.0-3.5 cm Ao Asc: 3.70 2.1-3.4 cm Pulmonary Veins Pulm Vein S/D 1.40 Pulmonary Valve PV Pk Tang: 0.74 Peak PV Grad: 2.00 Updated in Other Vendor System with Status of Final Ankur Aguilar MD electronically signed on 07/25/2023 11:31:53 AM with status of Final
[2023-07-25 07:28] LABS: Glucose, Whole Blood 97 mg/dL (60-115)
[2023-07-25] MEDS: cloNIDine HCL 0.1 MG TABLET PO ×2 (08:18→21:03)
--- NOTE | 2023-07-25 08:45 | PHA.MEDREC ---
Pharmacy Consult ? Medication Reconciliation Pharmacy has completed the medication reconciliation. REVIEWED MED REC DONE BY NURSING AND AFTER REVIEWING CLAIM HISTORY, SPOKE TO PATIENT. SHE IS GOOD HISTORIAN AND IS ABLE TO CONFIRM DISCREPANCIES BETWEEN MED REC NURSE DID AND UNCONFIRMED MEDICATIONS ALONG WITH INSULIN DOSING. PT RECENT HOSPITALIZATION SAW CHANGES IN DOSES SO SHE IS NOW ON 50 UNITS GLARGINE AT BEDTIME AND 16 UNITS TIDAC. ATORVASTATIN RAN OUT AND MD PENDING REFILLS BUT SHE IS SUPPOSED TO BE ON THIS. SHE WAS DISCONTINUED ON SEVERAL MEDICATIONS RECENTLY: ALBUTEROL, IPRATROPIUM, FARXIGA, LISINOPRIL, AND TRULICITY. TAKES ACETAMINOPHEN FOR PAIN AND ESCALATES TO TRAMADOL IF PAIN IS NOT CONTROLLED WITH THAT.
[2023-07-25 09:28] LABS: Procalcitonin 0.06 ng/mL
--- NOTE | 2023-07-25 09:32 | MHC.CM.PN ---
PT REPORTS SHE LIVES ALONE AND IS INDEPENDENT WITH ARE SHE SAYS SHE HAS A CANE AND A WALKER, SHE HAS BEEN USING BOTH RECENTLY PT HAS NO SERVICES PT COMPLETED A HCP TODAY NAMING HER DAUGHTER, CHARLINE VALLE [phone] AND JAYMIE FREIRE [phone], HER PRIMARY AND ALTERNATE AGENTS RESPECTIVELY PCP: VINI GONGORA OBSERVATION NOTICE DELIVERED DCP: HOME VIA PRIVATE TRANSPORT
[2023-07-25] MEDS: buPROPion HCl XL 300 MG TAB.ER.24H PO (09:49)
[2023-07-25] MEDS: Omeprazole 20 MG CAPSULE.DR PO (09:50)
[2023-07-25] MEDS: Gabapentin 300 MG CAPSULE PO ×3 (09:50→21:03)
[2023-07-25] MEDS: Atorvastatin Calcium 80 MG TABLET PO (09:50)
--- NOTE | 2023-07-25 10:05 | PC.NURSE ---
Pt ambulatory to restroom with walker. bedside echo in process.
[2023-07-25 11:06] LABS: Adenovirus PCR Not Detected (Not Detect.); Bordetella parapertussis PCR Not Detected (Not Detect.); Bordetella pertussis PCR Not Detected (Not Detect.); Chlamydia pneumoniae PCR Not Detected (Not Detect.); Coronavirus 229E PCR Not Detected (Not Detect.); Coronavirus HKU1 PCR Not Detected (Not Detect.); Coronavirus NL63 PCR Not Detected (Not Detect.); Coronavirus OC43 PCR Not Detected (Not Detect.); Human metapneumovirus PCR Not Detected (Not Detect.); Influenza A PCR Not Detected (Not Detect.); Influenza B PCR Not Detected (Not Detect.); Mycoplasma pneumoniae PCR Not Detected (Not Detect.); Parainfluenza 1 PCR Not Detected (Not Detect.); Parainfluenza 2 PCR Not Detected (Not Detect.); Parainfluenza 3 PCR Not Detected (Not Detect.); Parainfluenza 4 PCR Not Detected (Not Detect.); RSV PCR Not Detected (Not Detect.); Rhino/Enterovirus PCR Not Detected (Not Detect.)
[2023-07-25 11:16] LABS: SARS-CoV-2 PCR Not Detected (Not Detect.)
[2023-07-25 12:22] LABS: Glucose, Whole Blood 100 mg/dL (60-115)
[2023-07-25] MEDS: levoFLOXacin/D5W 750 MG/150 ML PIGGYBACK 100 MG IV (14:50)
--- NOTE | 2023-07-25 14:59 | PC.NURSE ---
Report to Rosalba on C
--- NOTE | 2023-07-25 15:49 | P.PNIM_ITS ---
Subjective Subjective Date of Service: 07/25/23 Interval History: C/o dyspnea + cough, nonproductive Review of Systems Review of Systems: Yes all other systems are reviewed and are negative Physical Exam 2 Vital Signs: Vital Signs: Last Vital Signs Temp 97.2 F 07/25/23 15:30 Pulse 95 07/25/23 15:30 Resp 18 07/25/23 15:30 BP 143/65 H 07/25/23 15:30 Pulse Ox 100 07/25/23 15:30 O2 Del Method Room Air 07/25/23 15:30 BMI result Body Mass Index 39.8 Gen: in no acute distress HEENT: sclera anicteric, moist mucus membranes Neck: supple Lungs: diminished air entry R Heart: regular rate and rhythm, no murmurs Abd: soft, non-tender, non-distended Ext: no edema Skin: warm/well-perfused Neuro: alert and oriented x3, no focal findings Psych: appropriate affect Objective Data Active Medications Acetaminophen (Acetaminophen 325 Mg Tablet) 650 mg PO Q6H PRN PRN Reason: Pain, Mild (Pain Scale 1-3) Last Admin: 07/25/23 00:21 Dose: 650 mg Documented By: BERNARD Atorvastatin Calcium (Atorvastatin Calcium 80 Mg Tablet) 80 mg PO DAILY [facility] Last Admin: 07/25/23 09:50 Dose: 80 mg Documented By: FRANCO Bupropion HCl (Bupropion Hcl Xl 300 Mg Tab.Er.24h) 300 mg PO DAILY@0900 [facility] Last Admin: 07/25/23 09:49 Dose: 300 mg Documented By: FRANCO Clonidine HCl (Clonidine Hcl 0.1 Mg Tablet) 0.1 mg PO BID [facility]; Protocol Last Admin: 07/25/23 08:18 Dose: 0.1 mg Documented By: FRANCO Dextrose (Dextrose 50 % 25 Gm/50 Ml Syringe) 25 gm IVPUSH Q15M PRN; Protocol PRN Reason: per Hypoglycemia Standing Ord. Docusate Sodium (Docusate Sodium 100 Mg Capsule) 100 mg PO DAILY PRN PRN Reason: Constipation Gabapentin (Gabapentin 300 Mg Capsule) 300 mg PO TID [facility] Last Admin: 07/25/23 14:50 Dose: 300 mg Documented By: FRANCO Glucose (Glucose Gel 15 Gm Gel..Gram.) 15 gm PO Q15M PRN; Protocol PRN Reason: per Hypoglycemia Standing Ord. Hydroxyzine HCl (Hydroxyzine Hcl 10 Mg Tablet) 10 mg PO DAILY PRN PRN Reason: Anxiety Sodium Chloride (Ns) 1,000 mls @ 100 mls/hr IVCONT .Q10H [facility] Last Admin: 07/25/23 08:19 Dose: 100 mls/hr Documented By: FRANCO Levofloxacin (Levaquin) 750 mg in 150 mls @ 100 mls/hr IV Q24H [facility] Last Admin: 07/25/23 14:50 Dose: 100 mls/hr Documented By: FRANCO Insulin Glargine (Insulin Glargine,Hum.Rec.Anlog 100 Unit/Ml 10 Ml Vial) 38 unit SUBCUT BEDTIME [facility] Last Admin: 07/25/23 00:09 Dose: 38 unit Documented By: CATHERINEANX Insulin Human Lispro (Insulin Lispro 100 Unit/Ml 3 Ml Vial) 0 unit SUBCUT QIDACHS [facility]; Protocol Last Admin: 07/25/23 12:23 Dose: Not Given Documented By: FRANCO Non-Admin Reason: No Insulin Coverage Non-Formulary Medication (Hyoscyamine Sulfate) 0.125 mg PO QID PRN PRN Reason: cramps Omeprazole (Omeprazole 20 Mg Capsule.Dr) 20 mg PO DAILY@0630 [facility] Last Admin: 07/25/23 09:50 Dose: 20 mg Documented By: FRANCO Ondansetron HCl (Ondansetron Hcl 4 Mg/2 Ml Vial) 4 mg IVPUSH Q8H PRN PRN Reason: Nausea and Vomiting Sodium Chloride (0.9 % Sodium Chloride Flush 3 Ml Syringe) 3 ml IVFLUSH QSHIFT [facility] Last Admin: 07/25/23 14:56 Dose: Not Given Documented By: FRANCO Non-Admin Reason: IV Running Trazodone HCl (Trazodone Hcl 100 Mg Tablet) 100 mg PO BEDTIME [facility] Labs 07/25/23 05:41 07/25/23 05:41 Labs: Laboratory Results - last 24 hr 07/24/23 07/24/23 07/25/23 17:59 21:11 00:18 MCV 86.5 MCH 27.0 MCHC 31.3 RDW 14.5 Plt Count 369 MPV 8.5 L Immature Gran % (Auto) 0.4 Neut % (Auto) 54.5 Lymph % (Auto) 37.0 [place] % (Auto) 4.3 Eos % (Auto) 2.9 Baso % (Auto) 0.9 Lymph # (Auto) 3.2 [place] # (Auto) 0.4 Eos # (Auto) 0.3 Baso # (Auto) 0.1 Abs Immat Gran (auto) 0.03 Absolute Neuts (auto) 4.7 Absolute Nucleated RBC 0.000 Nucleated RBC % (auto) 0.0 PT 11.7 INR 1.0 D-Dimer High Sensitivty 373 Anion Gap 13 Estim Creat Clear Calc 73.8 Estimated GFR 55 POC Glucose 71 85 Random Glucose 127 H Lactic Acid 1.7 Calcium 9.7 Magnesium 1.8 Total Bilirubin 0.3 Direct Bilirubin 0.1 AST 20 ALT 17 Alkaline Phosphatase 106 B-Natriuretic Peptide 28 Total Protein 7.1 Albumin 3.2 L Procalcitonin Urine Color Urine Appearance Urine pH Ur Specific Lucile Urine Protein Urine Glucose (UA) Urine Ketones Urine Blood Urine Nitrite Ur Leukocyte Esterase Urine RBC Urine WBC Ur Squamous Epith Cells Urine Bacteria Hyaline Casts Respiratory Panel [place] Adenovirus (Rapid PCR) B.pert (TEM-PCR) B.parapertussis DNA PCR C. pneumoniae DNA (PCR) Coronavirus OC43 (PCR) Coronavirus HKU1 (PCR) Coronavirus 229E (PCR) Coronavirus NL63 (PCR) Human Metapneumovir PCR Influenza A (RT-PCR) Influenza Type A (PCR) NEGATIVE Influenza B (RT-PCR) Influenza Type B (PCR) NEGATIVE M. pneumoniae (PCR) Parainfluenza 1 (PCR) Parainfluenza 2 (PCR) Parainfluenza 3 (PCR) Parainfluenza 4 (PCR) RSV (PCR) RSV RNA Qual (PCR) NEGATIVE Entero/Rhino (PCR) SARS-CoV-2 RNA (RT-PCR) NEGATIVE 07/25/23 07/25/23 07/25/23 00:21 05:41 06:03 MCV 86.8 MCH 27.1 MCHC 31.2 RDW 14.7 Plt Count 294 MPV 8.7 L Immature Gran % (Auto) 0.5 H Neut % (Auto) 46.2 Lymph % (Auto) 41.1 H [place] % (Auto) 7.1 Eos % (Auto) 4.0 Baso % (Auto) 1.1 Lymph # (Auto) 2.7 [place] # (Auto) 0.5 Eos # (Auto) 0.3 Baso # (Auto) 0.1 Abs Immat Gran (auto) 0.03 Absolute Neuts (auto) 3.0 Absolute Nucleated RBC 0.000 Nucleated RBC % (auto) 0.0 PT INR D-Dimer High Sensitivty Anion Gap 12 Estim Creat Clear Calc 72.3 Estimated GFR 54 POC Glucose Random Glucose 109 Lactic Acid Calcium 9.1 D Magnesium Total Bilirubin Direct Bilirubin AST ALT Alkaline Phosphatase B-Natriuretic Peptide Total Protein Albumin Procalcitonin 0.06 Urine Color Yellow Urine Appearance Clear Urine pH 6.0 Ur Specific Lucile 1.025 Urine Protein 30 (1+) H Urine Glucose (UA) Negative Urine Ketones Negative Urine Blood Negative Urine Nitrite Negative Ur Leukocyte Esterase Moderate (2+) H Urine RBC 0-2 Urine WBC 21-50 H Ur Squamous Epith Cells 0-2 Urine Bacteria None Seen Hyaline Casts 0-2 Respiratory Panel [place] See Note Adenovirus (Rapid PCR) Not Detected B.pert (TEM-PCR) Not Detected B.parapertussis DNA PCR Not Detected C. pneumoniae DNA (PCR) Not Detected Coronavirus OC43 (PCR) Not Detected Coronavirus HKU1 (PCR) Not Detected Coronavirus 229E (PCR) Not Detected Coronavirus NL63 (PCR) Not Detected Human Metapneumovir PCR Not Detected Influenza A (RT-PCR) Not Detected Influenza Type A (PCR) Influenza B (RT-PCR) Not Detected Influenza Type B (PCR) M. pneumoniae (PCR) Not Detected Parainfluenza 1 (PCR) Not Detected Parainfluenza 2 (PCR) Not Detected Parainfluenza 3 (PCR) Not Detected Parainfluenza 4 (PCR) Not Detected RSV (PCR) Not Detected RSV RNA Qual (PCR) Entero/Rhino (PCR) Not Detected SARS-CoV-2 RNA (RT-PCR) Not Detected 07/25/23 07/25/23 07:25 12:19 MCV MCH MCHC RDW Plt Count MPV Immature Gran % (Auto) Neut % (Auto) Lymph % (Auto) [place] % (Auto) Eos % (Auto) Baso % (Auto) Lymph # (Auto) [place] # (Auto) Eos # (Auto) Baso # (Auto) Abs Immat Gran (auto) Absolute Neuts (auto) Absolute Nucleated RBC Nucleated RBC % (auto) PT INR D-Dimer High Sensitivty Anion Gap Estim Creat Clear Calc Estimated GFR POC Glucose 97 100 Random Glucose Lactic Acid Calcium Magnesium Total Bilirubin Direct Bilirubin AST ALT Alkaline Phosphatase B-Natriuretic Peptide Total Protein Albumin Procalcitonin Urine Color Urine Appearance Urine pH Ur Specific Lucile Urine Protein Urine Glucose (UA) Urine Ketones Urine Blood Urine Nitrite Ur Leukocyte Esterase Urine RBC Urine WBC Ur Squamous Epith Cells Urine Bacteria Hyaline Casts Respiratory Panel [place] Adenovirus (Rapid PCR) B.pert (TEM-PCR) B.parapertussis DNA PCR C. pneumoniae DNA (PCR) Coronavirus OC43 (PCR) Coronavirus HKU1 (PCR) Coronavirus 229E (PCR) Coronavirus NL63 (PCR) Human Metapneumovir PCR Influenza A (RT-PCR) Influenza Type A (PCR) Influenza B (RT-PCR) Influenza Type B (PCR) M. pneumoniae (PCR) Parainfluenza 1 (PCR) Parainfluenza 2 (PCR) Parainfluenza 3 (PCR) Parainfluenza 4 (PCR) RSV (PCR) RSV RNA Qual (PCR) Entero/Rhino (PCR) SARS-CoV-2 RNA (RT-PCR) Impressions Chest X-Ray 07/24/23 17:37 IMPRESSION: Right upper lobe consolidation. Suspect pneumonia. Correlation and follow-up needed. Chest CTA 07/24/23 23:30 IMPRESSION: 1. No pulmonary embolus identified. 2. Extensive consolidation throughout the right upper lobe and to a lesser extent patchy consolidation in the right middle lobe, suspicious for pneumonia. Imaging follow-up is recommended to assess for resolution. VTE: negative. Assessment and Plan (1) Dyspnea: Status: Acute Plan d2 58yo with DM2, HTN, HLD, Amos's esophagus, Charcot foot recent Covid infection followed by pneumococcal pneumonia presenting with presyncope, dyspnea concern for persistent pneumonia presyncope - orthostasis noted during hospitalization for pneumonia at [facility]. Wears compression stockings. Continue NS, orthostasis appears to be resolving. TTE pending. Continue telemetry dyspnea - possible persistent PNA though PCT low. RVP panel negative. BCx pending. Got 1 dose ceftriaxone in ED. Per ID give levofloxacin. Check MRSA swab and HIV as well. Pulmonary consult- ?post-Covid syndrome. no PE on CTA. DM2, A1c 11.5 - basal-bolus insulin HTN - continue clonidine + lisinopril HLD - statin Amos's esophagus - continue PPI mood disorder - bupropion, trazodone VTE ppx - LMWH dispo - eventual home In my clinical judgment, the patient requires continued inpatient hospitalization for the following reasons: dyspnea workup Time Spent With Patient Time: Total time managing care of this patient today _35___ minutes. Quality Stroke Does the patient have a stroke diagnosis?: No VTE Prior VTE?: No VTE Risk Level:: Medical - moderate - high VTE Device Contraindication: Treatment Not Indicated VTE Drug Contraindication: N/A - Med Ordered
--- NOTE | 2023-07-25 16:01 | PC.NURSE ---
pt hs right knee abrasion ,scabbed
[2023-07-25 16:52] LABS: Glucose, Whole Blood 183 mg/dL (60-115)
[2023-07-25] MEDS: Insulin Lispro 100 UNIT/ML 3 ML VIAL SUBCUT (17:16)
[2023-07-25 20:44] LABS: Glucose, Whole Blood 142 mg/dL (60-115)
[2023-07-25] MEDS: traZODone HCL 100 MG TABLET PO (21:03)
[2023-07-25] MEDS: Benzonatate 100 MG CAPSULE 200 MG PO (22:34)
--- NOTE | 2023-07-25 22:36 | W.PM.IDCN ---
History of Present Illness Data of Consult Service Date: 07/25/23 Requesting physician: Venita Cook Primary Care Provider: SALO Quiñones- HPI Reason for consult: shortness of breath She presents with cough and shortness of breath. She had COVID 06/22. She has had shortness of breath after. She was hospitalized July and was hospitalized 07/10-07/18. She had positive strep pneumonia antigen and received one week IV Ceftriaxone. She has shortness of breath. Review of Systems Review of Systems: Yes all other systems are reviewed and are negative [facility] Past Medical History Medical History Pneumonia Sepsis Barretts esophagus Dyslipidemia HTN (hypertension) Charcot's joint of foot Diabetes Family History Family History Son Substance use disorder Father Substance use disorder Mother Substance use disorder Family/Other Substance use disorder Family history: reviewed and not pertinent Surgical History Surgical History H/O: hysterectomy Social History Social History Household Members: None Housing: Condominium Do you presently have visiting nurse or other home services: No Alcohol intake: never Patient Tobacco Use Status: Never used Tobacco e-Cigarette/Vaping Use: Never Used Second Hand Smoke Exposure: No Advance Directives Date on File: 07/25/23 service: No Current occupational status: employed 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 Current occupational exposures/hazards: No Cognitive needs: No Hearing needs: No Vision needs: No Meds Allergies Allergy/AdvReac Type Severity Reaction Status Date / Time No Known Allergies Allergy Verified 07/24/23 15:58 Active Medications: Current Medications Acetaminophen (Acetaminophen 325 Mg Tablet) 650 mg PO Q6H PRN PRN Reason: Pain, Mild (Pain Scale 1-3) Last Admin: 07/25/23 21:09 Dose: 650 mg Atorvastatin Calcium (Atorvastatin Calcium 80 Mg Tablet) 80 mg PO DAILY [facility] Last Admin: 07/25/23 09:50 Dose: 80 mg Benzonatate (Benzonatate 100 Mg Capsule) 200 mg PO TID PRN PRN Reason: Cough Last Admin: 07/25/23 22:34 Dose: 200 mg Bupropion HCl (Bupropion Hcl Xl 300 Mg Tab.Er.24h) 300 mg PO DAILY@0900 [facility] Last Admin: 07/25/23 09:49 Dose: 300 mg Clonidine HCl (Clonidine Hcl 0.1 Mg Tablet) 0.1 mg PO BID [facility]; Protocol Last Admin: 07/25/23 21:03 Dose: 0.1 mg Dextrose (Dextrose 50 % 25 Gm/50 Ml Syringe) 25 gm IVPUSH Q15M PRN; Protocol PRN Reason: per Hypoglycemia Standing Ord. Docusate Sodium (Docusate Sodium 100 Mg Capsule) 100 mg PO DAILY PRN PRN Reason: Constipation Gabapentin (Gabapentin 300 Mg Capsule) 300 mg PO TID [facility] Last Admin: 07/25/23 21:03 Dose: 300 mg Glucose (Glucose Gel 15 Gm Gel..Gram.) 15 gm PO Q15M PRN; Protocol PRN Reason: per Hypoglycemia Standing Ord. Hydroxyzine HCl (Hydroxyzine Hcl 10 Mg Tablet) 10 mg PO DAILY PRN PRN Reason: Anxiety Sodium Chloride (Ns) 1,000 mls @ 100 mls/hr IVCONT .Q10H [facility] Last Admin: 07/25/23 21:16 Dose: 100 mls/hr Levofloxacin (Levaquin) 750 mg in 150 mls @ 100 mls/hr IV Q24H [facility] Last Infusion: 07/25/23 16:36 Dose: Infused Insulin Glargine (Insulin Glargine,Hum.Rec.Anlog 100 Unit/Ml 10 Ml Vial) 38 unit SUBCUT BEDTIME [facility] Last Admin: 07/25/23 21:04 Dose: 38 unit Insulin Human Lispro (Insulin Lispro 100 Unit/Ml 3 Ml Vial) 0 unit SUBCUT QIDACHS [facility]; Protocol Last Admin: 07/25/23 21:05 Dose: Not Given Non-Formulary Medication (Hyoscyamine Sulfate) 0.125 mg PO QID PRN PRN Reason: cramps Omeprazole (Omeprazole 20 Mg Capsule.Dr) 20 mg PO DAILY@0630 [facility] Last Admin: 07/25/23 09:50 Dose: 20 mg Ondansetron HCl (Ondansetron Hcl 4 Mg/2 Ml Vial) 4 mg IVPUSH Q8H PRN PRN Reason: Nausea and Vomiting Sodium Chloride (0.9 % Sodium Chloride Flush 3 Ml Syringe) 3 ml IVFLUSH QSHIFT [facility] Last Admin: 07/25/23 21:06 Dose: 3 ml Tramadol HCl (Tramadol Hcl 50 Mg Tablet) 50 mg PO Q6H PRN PRN Reason: Pain (Scale Score 4-6) Trazodone HCl (Trazodone Hcl 100 Mg Tablet) 100 mg PO BEDTIME [facility] Last Admin: 07/25/23 21:03 Dose: 100 mg Home Medications Medication Instructions Recorded Confirmed Last Taken Type atorvastatin 80 mg tablet 80 mg PO DAILY 02/28/23 07/24/23 Unknown History blood-glucose sensor (Dexcom G6 #1 ea 02/28/23 02/28/23 Unknown History Sensor device) blood-glucose transmitter (Dexcom #1 ea 02/28/23 02/28/23 Unknown History G6 Transmitter device) bupropion HCl 300 mg 24 hr tablet, 300 mg PO DAILY 02/28/23 07/25/23 Unknown History extended release clonidine HCl 0.1 mg tablet 0.1 mg PO BID 02/28/23 07/24/23 Unknown History gabapentin 300 mg capsule 300 mg PO TID 02/28/23 07/24/23 Unknown History hydroxyzine HCl 10 mg tablet 10 mg PO DAILY PRN Anxiety 02/28/23 07/24/23 Unknown History hyoscyamine sulfate 0.125 mg tablet 0.125 mg PO BID PRN cramps 02/28/23 07/25/23 Unknown History insulin aspart U-100 100 unit/mL 16 unit subcut TIDAC 02/28/23 07/25/23 Unknown History (3 mL) subcutaneous pen (Novolog FlexPen U-100 Insulin aspart) insulin glargine 100 unit/mL (3 50 unit subcut BEDTIME 02/28/23 07/25/23 Unknown History mL) subcutaneous pen (Basaglar KwikPen U-100 Insulin) pantoprazole 20 mg tablet,delayed 20 mg PO DAILY@0630 02/28/23 07/25/23 Unknown History release tramadol 50 mg tablet 50 mg PO Q6H PRN Pain (Scale Score 02/28/23 07/24/23 Unknown History 4-6) trazodone 100 mg tablet 100 mg PO BEDTIME 02/28/23 07/24/23 Unknown History acetaminophen 650 mg 650 mg PO Q12H PRN Pain (Scale 07/25/23 07/25/23 Unknown History tablet,extended release Score 1-3) Physical Exam Vital Signs: Vital Signs: Last Vital Signs Temp 97.8 F 07/25/23 19:41 Pulse 88 07/25/23 19:41 Resp 16 07/25/23 19:41 BP 150/78 H 07/25/23 19:41 Pulse Ox 100 07/25/23 19:41 O2 Del Method Room Air 07/25/23 19:41 BMI result Body Mass Index 39.8 Const: General: cooperative HEENT: Head: Yes normal to inspection Face and sinus: Yes normal facial exam Mouth: Normal oral and palatal mucosa present Teeth and gingiva: dentition normal Eyes: General: appearance normal, both eyes and all related structures Pupils: Equal, round and reactive pupils present Resp: Other: rhonchi bases Cardio: Rate: regular rate Rhythm: regular rhythm GI: Palpation (GI): Soft to palpation and nontender : General: Yes no CVA tenderness Back/Spine/Pelvis: Back: no CVA tenderness Skin: General skin exam: no rashes or lesions noted Neuro: General: moves all extremities Cranial nerves: Yes Equal, round and reactive pupils present Extrem: General: Yes normal to inspection Psych: Appearance: grossly normal Results Labs 07/25/23 05:41 07/25/23 05:41 Labs: Short CBC 07/25/23 Range/Units 05:41 WBC 6.5 (4.8-10.8) X10*3/uL Hgb 9.2 L (12.0-16.0) g/dl Hct 29.5 L (37.0-47.0) % Plt Count 294 (160-400) X10*3/uL BMP 07/25/23 05:41 Sodium 139 Potassium 4.2 Chloride 111 H Carbon Dioxide 20 L BUN 25 H Creatinine 1.05 Calcium 9.1 D Urine 07/25/23 Range/Units 06:03 Urine Color Yellow Urine Appearance Clear Urine pH 6.0 (5.0-9.0) Ur Specific [place] 1.025 (1.005-1.025) Urine Protein 30 (1+) H (Neg-Trace) mg/dL Urine Glucose (UA) Negative (Negative) mg/dL Microbiology Microbiology Results: Microbiology 07/24/23 19:04 Blood - Venous Blood Culture - Preliminary No growth after 24 hours. 07/24/23 17:59 Blood - Venous Blood Culture - Preliminary No growth after 24 hours. 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 Doubt TB or other Plan Levaquin for 14 days cover atypical. Check HIV test. Time Spent With Patient Time: Total time managing care of this patient today ____ minutes.
[2023-07-26] VITALS (7 sets, daily range): BP systolic 119–147; BP diastolic 58–73; PULSE 84–101; RESP 16–24; TEMP 36.2–36.8; O2SAT 95–100
[2023-07-26 05:58] LABS: Hematocrit 29.2 % (37.0-47.0); Hemoglobin 9.1 g/dl (12.0-16.0); Mean Corpuscular HGB Conc 31.2 g/dl (31.0-35.0); Mean Corpuscular Hemoglobin 27.1 pg (27.0-33.0); Mean Corpuscular Volume 86.9 fL (80.0-98.0); Mean Platelet Volume 8.9 fL (9.4-12.3); Platelet Count 254 X10*3/uL (160-400); Red Blood Count 3.36 X10*6/uL (4.20-5.50); Red Cell Distribution Width 14.6 % (11.0-16.0); White Blood Count 4.9 X10*3/uL (4.8-10.8)
[2023-07-26 06:14] LABS: Anion Gap 11 (12-20); Blood Urea Nitrogen 20 mg/dL (9-16); Calcium 9.1 mg/dL (8.4-10.2); Carbon Dioxide 20 mmol/L (22-29); Chloride 113 mmol/L (96-108); Creatinine Clr Calc Pharmacy 61.7; Estimated Glomerular Filt Rate 45; Glucose Random 112 mg/dL (60-115); Potassium 4.2 mmol/L (3.3-5.1); Sodium 140 mmol/L (135-145)
[2023-07-26 06:30] LABS: HIV AB/AG Nonreactive (Nonreactive); HIV Num 1 0.05 S/CO (0.00-0.99)
[2023-07-26] MEDS: Omeprazole 20 MG CAPSULE.DR PO (07:22)
[2023-07-26 07:36] LABS: Glucose, Whole Blood 126 mg/dL (60-115)
[2023-07-26] MEDS: 0.9 % Sodium Chloride Flush 3 ML SYRINGE IVFLUSH ×2 (08:35→17:25)
[2023-07-26] MEDS: buPROPion HCl XL 300 MG TAB.ER.24H PO (08:35)
[2023-07-26] MEDS: cloNIDine HCL 0.1 MG TABLET PO (08:35)
[2023-07-26] MEDS: Atorvastatin Calcium 80 MG TABLET PO (08:35)
[2023-07-26] MEDS: Gabapentin 300 MG CAPSULE PO ×3 (08:35→21:03)
--- NOTE | 2023-07-26 08:50 | P.CONPL_ITS ---
History of Present Illness History of Present Illness Consult date: 07/26/23 Chief complaint: orthostatic presyncope, dyspnea Narrative: This is an inpatient pulmonary consultation.58-year-old female with history of hypertension, dyslipidemia, Amos's esophagus, type 2 diabetes, Charcot foot presented to the ED earlier today for evaluation of dyspnea both at rest and with exertion and positional lightheadedness. Patient tells me she was diagnosed with COVID-19 on 06/22 with relatively mild symptoms. However then flew to [place] and reports vomited x7 days with significant weakness and falls. EMS transferred patient to the hospital and she was admitted to the ICU and a [place] hospital for DKA and RUL/RML pneumonia with sepsis x8 days and NSTEMI with discharge on 07/18. She did not require supplemental O2 but was treated with 2 g IV ceftriaxone x7 days for strep pneumo community-acquired pneumonia. The patient was admitted to the hospital. She did have a CTA demonstrating significant airspace disease in the right hemithorax and also on the left lower lobe area. She was started on Levaquin. Her MRSA screening still pending although we should add staph coverage at this time. Review of Systems 2 Review of Systems: General: No fevers, malaise, unintentional weight loss HEENT: No blurred vision, diplopia. No sore throat, nasal congestion, rhinorrhea, sinus pain, ear pain Cardiovascular: No chest pain, palpitations, or leg edema Respiratory: +sob at rest, +CHRISTIANSON, +cough. GI: No abdominal pain, nausea, vomiting, diarrhea, constipation : No dysuria, hematuria, increased urinary frequency, decreased urinary output MSK: No myalgia, back pain Neuro: No headaches, weakness, paresthesias. +lightheadness Skin: No rashes or lesions PMFSH Past Medical History Medical History Pneumonia Sepsis Barretts esophagus Dyslipidemia HTN (hypertension) Charcot's joint of foot Diabetes Family History Family History Son Substance use disorder Father Substance use disorder Mother Substance use disorder Family/Other Substance use disorder Family history: reviewed and not pertinent Surgical History Surgical History H/O: hysterectomy Social History Social History Household Members: None Housing: Condominium Do you presently have visiting nurse or other home services: No Alcohol intake: never Patient Tobacco Use Status: Never used Tobacco e-Cigarette/Vaping Use: Never Used Second Hand Smoke Exposure: No Advance Directives Date on File: 07/25/23 service: No Current occupational status: employed 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 Current occupational exposures/hazards: No Cognitive needs: No Hearing needs: No Vision needs: No Meds Allergies Allergy/AdvReac Type Severity Reaction Status Date / Time No Known Allergies Allergy Verified 07/24/23 15:58 Active Medications: Current Medications Acetaminophen (Acetaminophen 325 Mg Tablet) 650 mg PO Q6H PRN PRN Reason: Pain, Mild (Pain Scale 1-3) Last Admin: 07/25/23 21:09 Dose: 650 mg Atorvastatin Calcium (Atorvastatin Calcium 80 Mg Tablet) 80 mg PO DAILY [facility] Last Admin: 07/26/23 08:35 Dose: 80 mg Benzonatate (Benzonatate 100 Mg Capsule) 200 mg PO TID PRN PRN Reason: Cough Last Admin: 07/25/23 22:34 Dose: 200 mg Bupropion HCl (Bupropion Hcl Xl 300 Mg Tab.Er.24h) 300 mg PO DAILY@0900 [facility] Last Admin: 07/26/23 08:35 Dose: 300 mg Clonidine HCl (Clonidine Hcl 0.1 Mg Tablet) 0.1 mg PO BID [facility]; Protocol Last Admin: 07/26/23 08:35 Dose: 0.1 mg Dextrose (Dextrose 50 % 25 Gm/50 Ml Syringe) 25 gm IVPUSH Q15M PRN; Protocol PRN Reason: per Hypoglycemia Standing Ord. Docusate Sodium (Docusate Sodium 100 Mg Capsule) 100 mg PO DAILY PRN PRN Reason: Constipation Gabapentin (Gabapentin 300 Mg Capsule) 300 mg PO TID [facility] Last Admin: 07/26/23 08:35 Dose: 300 mg Glucose (Glucose Gel 15 Gm Gel..Gram.) 15 gm PO Q15M PRN; Protocol PRN Reason: per Hypoglycemia Standing Ord. Hydroxyzine HCl (Hydroxyzine Hcl 10 Mg Tablet) 10 mg PO DAILY PRN PRN Reason: Anxiety Sodium Chloride (Ns) 1,000 mls @ 100 mls/hr IVCONT .Q10H [facility] Last Infusion: 07/26/23 07:18 Dose: Infused Levofloxacin (Levaquin) 750 mg in 150 mls @ 100 mls/hr IV Q24H [facility] Last Infusion: 07/25/23 16:36 Dose: Infused Insulin Glargine (Insulin Glargine,Hum.Rec.Anlog 100 Unit/Ml 10 Ml Vial) 38 unit SUBCUT BEDTIME [facility] Last Admin: 07/25/23 21:04 Dose: 38 unit Insulin Human Lispro (Insulin Lispro 100 Unit/Ml 3 Ml Vial) 0 unit SUBCUT QIDACHS [facility]; Protocol Last Admin: 07/25/23 21:05 Dose: Not Given Non-Formulary Medication (Hyoscyamine Sulfate) 0.125 mg PO QID PRN PRN Reason: cramps Omeprazole (Omeprazole 20 Mg Capsule.Dr) 20 mg PO DAILY@0630 [facility] Last Admin: 07/26/23 07:22 Dose: 20 mg Ondansetron HCl (Ondansetron Hcl 4 Mg/2 Ml Vial) 4 mg IVPUSH Q8H PRN PRN Reason: Nausea and Vomiting Sodium Chloride (0.9 % Sodium Chloride Flush 3 Ml Syringe) 3 ml IVFLUSH QSHIFT [facility] Last Admin: 07/26/23 08:35 Dose: 3 ml Tramadol HCl (Tramadol Hcl 50 Mg Tablet) 50 mg PO Q6H PRN PRN Reason: Pain (Scale Score 4-6) Trazodone HCl (Trazodone Hcl 100 Mg Tablet) 100 mg PO BEDTIME [facility] Last Admin: 07/25/23 21:03 Dose: 100 mg Home Medications Medication Instructions Recorded Confirmed Last Taken Type atorvastatin 80 mg tablet 80 mg PO DAILY 02/28/23 07/24/23 Unknown History blood-glucose sensor (Dexcom G6 #1 ea 02/28/23 02/28/23 Unknown History Sensor device) blood-glucose transmitter (Dexcom #1 ea 02/28/23 02/28/23 Unknown History G6 Transmitter device) bupropion HCl 300 mg 24 hr tablet, 300 mg PO DAILY 02/28/23 07/25/23 Unknown History extended release clonidine HCl 0.1 mg tablet 0.1 mg PO BID 02/28/23 07/24/23 Unknown History gabapentin 300 mg capsule 300 mg PO TID 02/28/23 07/24/23 Unknown History hydroxyzine HCl 10 mg tablet 10 mg PO DAILY PRN Anxiety 02/28/23 07/24/23 Unknown History hyoscyamine sulfate 0.125 mg tablet 0.125 mg PO BID PRN cramps 02/28/23 07/25/23 Unknown History insulin aspart U-100 100 unit/mL 16 unit subcut TIDAC 02/28/23 07/25/23 Unknown History (3 mL) subcutaneous pen (Novolog FlexPen U-100 Insulin aspart) insulin glargine 100 unit/mL (3 50 unit subcut BEDTIME 02/28/23 07/25/23 Unknown History mL) subcutaneous pen (Basaglar KwikPen U-100 Insulin) pantoprazole 20 mg tablet,delayed 20 mg PO DAILY@0630 02/28/23 07/25/23 Unknown History release tramadol 50 mg tablet 50 mg PO Q6H PRN Pain (Scale Score 02/28/23 07/24/23 Unknown History 4-6) trazodone 100 mg tablet 100 mg PO BEDTIME 02/28/23 07/24/23 Unknown History acetaminophen 650 mg 650 mg PO Q12H PRN Pain (Scale 07/25/23 07/25/23 Unknown History tablet,extended release Score 1-3) Physical Exam 2 Vital Signs: Vital Signs: Last Vital Signs Temp 97.8 F 07/26/23 07:07 Pulse 89 07/26/23 07:07 Resp 24 H 07/26/23 07:07 BP 139/73 07/26/23 07:07 Pulse Ox 95 07/26/23 07:07 O2 Del Method Room Air 07/26/23 07:07 BMI result Body Mass Index 39.8 Const: General: cooperative HEENT: Head: Yes normal to inspection Face and sinus: Yes normal facial exam Mouth: Normal oral and palatal mucosa present Teeth and gingiva: d entition normal Eyes: General: appearance normal, both eyes and all related structures P upils: Equal, round and reactive pupils present Neck: Neck: Yes supple Chest: Chest palpation & inspection: normal inspection of the chest Resp: Other: rhonchi bases Effort & Inspection: normal respiratory effort Auscultation: diminished lung sounds Cardio: Rate: regular rate Rhythm: regular rhythm GI: Palpation (GI): Soft to palpation and nontender : General: Yes no CVA tenderness Back/Spine/Pelvis: Back: no CVA tenderness Skin: General skin exam: no rashes or lesions noted Neuro: General: moves all extremities Cranial nerves: Yes Equal, round and reactive pupils present Extrem: Right upper extremity: edema Psych: Appearance: grossly normal Results Laboratory Findings 07/26/23 05:38 07/26/23 05:38 ABG, PT/INR, D-dimer: PT/INR, D-dimer PT 11.7 SEC (11.1-13.3) 07/24/23 17:59 INR 1.0 (0.9-1.1) 07/24/23 17:59 Abnormal lab findings: Abnormal Labs 07/24/23 07/25/23 07/25/23 17:59 05:41 06:03 RBC 3.70 L 3.40 L Hgb 10.0 L 9.2 L Hct 32.0 L 29.5 L MPV 8.5 L 8.7 L Immature Gran % (Auto) 0.5 H Lymph % (Auto) 41.1 H Chloride 111 H Carbon Dioxide 20 L Anion Gap BUN 26 H 25 H POC Glucose Random Glucose 127 H Albumin 3.2 L Urine Protein 30 (1+) H Ur Leukocyte Esterase Moderate (2+) H Urine WBC 21-50 H 07/25/23 07/25/23 07/26/23 16:39 20:39 05:38 RBC 3.36 L Hgb 9.1 L Hct 29.2 L MPV 8.9 L Immature Gran % (Auto) Lymph % (Auto) Chloride 113 H Carbon Dioxide 20 L Anion Gap 11 L BUN 20 H POC Glucose 183 H 142 H Random Glucose Albumin Urine Protein Ur Leukocyte Esterase Urine WBC 07/26/23 07:12 RBC Hgb Hct MPV Immature Gran % (Auto) Lymph % (Auto) Chloride Carbon Dioxide Anion Gap BUN POC Glucose 126 H Random Glucose Albumin Urine Protein Ur Leukocyte Esterase Urine WBC Microbiology: Microbiology 07/24/23 19:04 Blood - Venous Blood Culture - Preliminary No growth after 24 hours. 07/24/23 17:59 Blood - Venous Blood Culture - Preliminary No growth after 24 hours. Assessment and Plan (1) HCAP (healthcare-associated pneumonia): Status: Acute Initially dx with pneumonia while hospitalized in [place]. But, likely worsened upon discharge. (2) Acute respiratory failure: Qualifiers: Respiratory failure complication: hypoxia Qualified Code(s): J96.01 - Acute respiratory failure with hypoxia Status: Acute Plan Add Doxycycline MRSA screen Sputum culture if able CPT with acapella valve Time Spent With Patient Time: Total time managing care of this patient today ____ minutes. Procedures Date of Service Date of Service: 07/26/23
--- NOTE | 2023-07-26 10:26 | MHC.CM.PN ---
Per RN CM, Patient has changed from OBSERVATION to INPATIENT.
[2023-07-26 10:50] LABS: MRSA Nasal PCR NEGATIVE (Negative); SA Nasal PCR NEGATIVE (Negative)
[2023-07-26 11:02] LABS: Glucose, Whole Blood 200 mg/dL (60-115)
[2023-07-26] MEDS: lisinopriL 10 MG TABLET PO (12:49)
[2023-07-26] MEDS: Insulin Lispro 100 UNIT/ML 3 ML VIAL SUBCUT ×2 (12:50→21:03)
--- NOTE | 2023-07-26 13:47 | P.PNIM_ITS ---
Subjective Subjective Date of Service: 07/26/23 Interval History: Orthostatic this AM Still c/o cough + dyspnea RUE swollen, Duplex negative for VTE Review of Systems Review of Systems: Yes all other systems are reviewed and are negative Physical Exam 2 Vital Signs: Vital Signs: Last Vital Signs Temp 97.2 F 07/26/23 11:23 Pulse 86 07/26/23 11:23 Resp 16 07/26/23 11:23 BP 126/71 07/26/23 11:23 Pulse Ox 96 07/26/23 11:23 O2 Del Method Room Air 07/26/23 11:23 BMI result Body Mass Index 39.8 Gen: in no acute distress HEENT: sclera anicteric, moist mucus membranes Neck: supple Lungs: diminished air entry R Heart: regular rate and rhythm, no murmurs Abd: soft, non-tender, non-distended Ext: no edema Skin: warm/well-perfused Neuro: alert and oriented x3, no focal findings Psych: appropriate affect Objective Data Active Medications Acetaminophen (Acetaminophen 325 Mg Tablet) 650 mg PO Q6H PRN PRN Reason: Pain, Mild (Pain Scale 1-3) Last Admin: 07/25/23 21:09 Dose: 650 mg Documented By: LEIGH Atorvastatin Calcium (Atorvastatin Calcium 80 Mg Tablet) 80 mg PO DAILY [facility] Last Admin: 07/26/23 08:35 Dose: 80 mg Documented By: MARKEL Benzonatate (Benzonatate 100 Mg Capsule) 200 mg PO TID PRN PRN Reason: Cough Last Admin: 07/25/23 22:34 Dose: 200 mg Documented By: LEIGH Bupropion HCl (Bupropion Hcl Xl 300 Mg Tab.Er.24h) 300 mg PO DAILY@0900 [facility] Last Admin: 07/26/23 08:35 Dose: 300 mg Documented By: MARKEL Dextrose (Dextrose 50 % 25 Gm/50 Ml Syringe) 25 gm IVPUSH Q15M PRN; Protocol PRN Reason: per Hypoglycemia Standing Ord. Docusate Sodium (Docusate Sodium 100 Mg Capsule) 100 mg PO DAILY PRN PRN Reason: Constipation Gabapentin (Gabapentin 300 Mg Capsule) 300 mg PO TID [facility] Last Admin: 07/26/23 08:35 Dose: 300 mg Documented By: MARKEL Glucose (Glucose Gel 15 Gm Gel..Gram.) 15 gm PO Q15M PRN; Protocol PRN Reason: per Hypoglycemia Standing Ord. Hydroxyzine HCl (Hydroxyzine Hcl 25 Mg Tablet) 25 mg PO Q6H PRN PRN Reason: Anxiety Sodium Chloride (Ns) 1,000 mls @ 100 mls/hr IVCONT .Q10H [facility] Last Infusion: 07/26/23 07:18 Dose: Infused Documented By: MARKEL Levofloxacin (Levaquin) 750 mg in 150 mls @ 100 mls/hr IV Q24H [facility] Last Infusion: 07/25/23 16:36 Dose: Infused Documented By: FOSTEKJessa Insulin Glargine (Insulin Glargine,Hum.Rec.Anlog 100 Unit/Ml 10 Ml Vial) 38 unit SUBCUT BEDTIME [facility] Last Admin: 07/25/23 21:04 Dose: 38 unit Documented By: LEIGH Insulin Human Lispro (Insulin Lispro 100 Unit/Ml 3 Ml Vial) 0 unit SUBCUT QIDACHS [facility]; Protocol Last Admin: 07/26/23 12:50 Dose: 2 unit Documented By: MARKEL Lisinopril (Lisinopril 10 Mg Tablet) 10 mg PO DAILY [facility]; Protocol Last Admin: 07/26/23 12:49 Dose: 10 mg Documented By: MARKEL Non-Formulary Medication (Hyoscyamine Sulfate) 0.125 mg PO QID PRN PRN Reason: cramps Omeprazole (Omeprazole 20 Mg Capsule.Dr) 20 mg PO DAILY@0630 [facility] Last Admin: 07/26/23 07:22 Dose: 20 mg Documented By: MARKEL Ondansetron HCl (Ondansetron Hcl 4 Mg/2 Ml Vial) 4 mg IVPUSH Q8H PRN PRN Reason: Nausea and Vomiting Sodium Chloride (0.9 % Sodium Chloride Flush 3 Ml Syringe) 3 ml IVFLUSH QSHIFT [facility] Last Admin: 07/26/23 08:35 Dose: 3 ml Documented By: MARKEL Tramadol HCl (Tramadol Hcl 50 Mg Tablet) 50 mg PO Q6H PRN PRN Reason: Pain (Scale Score 4-6) Trazodone HCl (Trazodone Hcl 100 Mg Tablet) 100 mg PO BEDTIME [facility] Last Admin: 07/25/23 21:03 Dose: 100 mg Documented By: LEIGH Labs 07/26/23 05:38 07/26/23 05:38 Labs: Laboratory Results - last 24 hr 07/25/23 07/25/23 07/26/23 16:39 20:39 05:38 MCV 86.9 MCH 27.1 MCHC 31.2 RDW 14.6 Plt Count 254 MPV 8.9 L Absolute Nucleated RBC 0.000 Nucleated RBC % (auto) 0.0 Anion Gap 11 L Estim Creat Clear Calc 61.7 Estimated GFR 45 POC Glucose 183 H 142 H Random Glucose 112 Calcium 9.1 Nasal Screen MRSA (PCR) Nasal S. aureus Screen Nasal MRSA/S.aureus Interp HIV 1&2 Ab/P24 Ag 4thGn Nonreactive 07/26/23 07/26/23 07/26/23 07:12 08:45 10:58 MCV MCH MCHC RDW Plt Count MPV Absolute Nucleated RBC Nucleated RBC % (auto) Anion Gap Estim Creat Clear Calc Estimated GFR POC Glucose 126 H 200 H Random Glucose Calcium Nasal Screen MRSA (PCR) NEGATIVE Nasal S. aureus Screen NEGATIVE Nasal MRSA/S.aureus Interp SEE NOTE HIV 1&2 Ab/P24 Ag 4thGn Microbiology Microbiology Results: Microbiology 07/25/23 02:04 Urine Culture - Preliminary Urine clean catch - Urine polanco top Staphylococcus species 07/24/23 19:04 Blood Culture - Preliminary Blood - Venous No growth after 24 hours. 07/24/23 17:59 Blood Culture - Preliminary Blood - Venous No growth after 24 hours. Assessment and Plan (1) Dyspnea: Status: Acute Plan d3 58yo with DM2, HTN, HLD, Amos's esophagus, Charcot foot recent Covid infection followed by pneumococcal pneumonia presenting with presyncope, dyspnea concern for persistent pneumonia presyncope due to orthostatic hypotension - continues NS, d/c clonidine persistent pneumonia - PCT low, RVP negative, BCx negative to date - ID consulted, started levofloxacin 07/25/23, total 14d - MRSA swab negative, HIV negative - Pulmonary conulstation dyspnea - no PE on CTA - TTE 07/25/23: 1. Normal LV ejection fraction 65-70% with grade 1 diastolic dysfunction 2. Normal cardiac valvular Doppler 3. Mildly dilated ascending aorta 3.7 cm 4. Normal RV systolic pressure 5. No gross pericardial effusion DM2 with hyperglycemia, A1c 11.5 - basal-bolus insulin HTN - continue lisinopril, d/c clonidine HLD - statin Amos's esophagus - continue PPI mood disorder - bupropion, trazodone VTE ppx - LMWH dispo - eventual home with VNA/PT In my clinical judgment, the patient requires continued inpatient hospitalization for the following reasons: dyspnea workup Time Spent With Patient Time: Total time managing care of this patient today _35___ minutes. Quality Stroke Does the patient have a stroke diagnosis?: No VTE Prior VTE?: No VTE Risk Level:: Medical - moderate - high VTE Device Contraindication: Treatment Not Indicated VTE Drug Contraindication: N/A - Med Ordered
[2023-07-26 16:19] LABS: Glucose, Whole Blood 141 mg/dL (60-115)
[2023-07-26] MEDS: levoFLOXacin/D5W 750 MG/150 ML PIGGYBACK 100 MG IV (17:15)
[2023-07-26] MEDS: 0.9 % Sodium Chloride 1,000 ML 100 ML IVCONT (17:16)
[2023-07-26 19:53] LABS: Glucose, Whole Blood 158 mg/dL (60-115)
[2023-07-26] MEDS: traZODone HCL 100 MG TABLET PO (21:03)
[2023-07-26] MEDS: Insulin Glargine,Hum.rec.anlog 100 UNIT/ML 10 ML VIAL 38 UNIT SUBCUT (21:04)
[2023-07-27] VITALS (7 sets, daily range): BP systolic 97–143; BP diastolic 57–76; PULSE 90–115; RESP 20; TEMP 36.3–37.1; O2SAT 96–98
[2023-07-27] MEDS: Omeprazole 20 MG CAPSULE.DR PO (04:19)
[2023-07-27 06:09] LABS: Hematocrit 29.6 % (37.0-47.0); Hemoglobin 9.6 g/dl (12.0-16.0); Mean Corpuscular HGB Conc 32.4 g/dl (31.0-35.0); Mean Corpuscular Volume 86.3 fL (80.0-98.0); Mean Platelet Volume 8.9 fL (9.4-12.3); Platelet Count 244 X10*3/uL (160-400); Red Blood Count 3.43 X10*6/uL (4.20-5.50); Red Cell Distribution Width 14.9 % (11.0-16.0); Retic HGB Equivalent 33.4 pg (30.0-35.0); Reticulocyte Percent 4.6 % (0.5-1.8); Reticulocytes Absolute 0.157 X10*6/uL (0.026-0.095); White Blood Count 5.7 X10*3/uL (4.8-10.8)
[2023-07-27 06:30] LABS: Anion Gap 15 (12-20); Blood Urea Nitrogen 19 mg/dL (9-16); C Reactive Protein 0.23 mg/dL (< or = 0.50); Calcium 9.5 mg/dL (8.4-10.2); Carbon Dioxide 16 mmol/L (22-29); Chloride 113 mmol/L (96-108); Creatinine Clr Calc Pharmacy 70.3; Estimated Glomerular Filt Rate 52; Glucose Random 139 mg/dL (60-115); Iron 63 mcg/dL (30-160); Lactate Dehydrogenase 265 U/L (122-220); Percent Iron Saturation 26 % (15-50); Potassium 4.3 mmol/L (3.3-5.1); Sodium 140 mmol/L (135-145); Total Iron Binding Capacity 243 mcg/dL (228-428); Unsaturated Iron Binding 180 ug/dL
[2023-07-27 06:39] LABS: Procalcitonin 0.05 ng/mL
[2023-07-27 06:48] LABS: Folate 6.3 ng/mL (> or = 4.0); Vitamin B12 518 pg/mL (200-900)
[2023-07-27 07:33] LABS: Glucose, Whole Blood 149 mg/dL (60-115)
[2023-07-27] MEDS: lisinopriL 10 MG TABLET PO (11:05)
[2023-07-27] MEDS: Atorvastatin Calcium 80 MG TABLET PO (11:05)
[2023-07-27] MEDS: buPROPion HCl XL 300 MG TAB.ER.24H PO (11:05)
[2023-07-27] MEDS: Gabapentin 300 MG CAPSULE PO (11:05)
[2023-07-27] MEDS: 0.9 % Sodium Chloride Flush 3 ML SYRINGE IVFLUSH (11:06)
[2023-07-27] MEDS: Insulin Lispro 100 UNIT/ML 3 ML VIAL SUBCUT (11:14)
[2023-07-27 11:20] LABS: Glucose, Whole Blood 210 mg/dL (60-115)
--- NOTE | 2023-07-27 12:30 | W.MHC.F2F ---
Service Date Service Date: 07/27/23 Encounter Date of encounter: 07/27/23 Reasons for Services Signs and symptoms assessed: dyspnea orthostasis Reason for custodial: diabetic teaching, medication management, medication treatment and teach disease management Reason for physical therapy: home safety and mobility, therapeutic exercises, gait/transfer training, assess need for DME, ADL training and energy conservation MD Overseeing Care: Joel Alegria Homebound: Leaving the home is medically contraindicated at this time without the asist of a device and/or another person due th the listed conditions above and below. Reason homebound: unsteady gait / fall risk, shortness of breath with minimal effort and weakness related to hospital stay Homebound supporting statement: Dyspnea on Exertion,Gross Deconditioning, Impaired Bed Mobility, Impaired Gait Pattern, Impaired Standing Balance, Impaired Transfer Ability, Impaired Trunk Control,Muscle Weakness - Goals 4-5 VISITS 1. INDEPENDENT WITH BED MOB 2. TRANSFER INDEPENDENTLY 3. GAIT X 150' WITH W/WALKER, SUPERVISION Treatment Plan Bed Mobility, Transfer Training,Gait Training,Stair Training, Therapeutic Activities, Therapeutic Exercise, Patient Education, Safety,Hot Pack / Cold Pack, Certification: Based on the above findings, I certify that this patient is confined to the home and needs intermittent custodial care, physical therapy and/or speech therapy, or continues to need occupational therapy. The patient is under my care, and I have initiated the establishment of the plan of care. The patient will be followed by a physician who will periodically review the plan of care. Time Spent With Patient Time: Total time managing care of this patient today ____ minutes.
--- NOTE | 2023-07-27 12:32 | PM.DS ---
DS: Providers Provider Date of Service: 07/27/23 Date of admission: 07/26/23 10:27 Date of discharge: 07/27/23 Primary care physician: DARVIN Quiñones Consults: 07/25/23 08:29 Consult to Infectious Diseases Routine Consulting Provider[place] [facility] [place] Reason for consultation: pneumonia s/p covid then pneumococcal pna 07/25/23 14:32 Consult to Pulmonology Routine Consulting Provider: [facility] [place] Reason for consultation: persistent PNA- post COvid syndrome? DS: Diagnosis Discharge Diagnosis (1) Dyspnea: Status: Acute (2) Atypical pneumonia: Status: Acute (3) Orthostatic hypotension: Status: Acute (4) Pre-syncope: Status: Acute (5) Diabetes mellitus with hyperglycemia: Status: Acute (6) HTN (hypertension): Status: Acute DS: Summary Hospital Course Hospital Course: from admission H+P by hospitalist KENZIE Lauren, 07/24/23: 58-year-old female with history of hypertension, dyslipidemia, Amos's esophagus, type 2 diabetes, Charcot foot presented to the ED earlier today for evaluation of dyspnea both at rest and with exertion and positional lightheadedness. Patient tells me she was diagnosed with COVID-19 on 06/22 with relatively mild symptoms. However then flew to [place] and reports vomited x7 days with significant weakness and falls. EMS transferred patient to the hospital and she was admitted to the ICU and a [place] hospital for DKA and RUL/RML pneumonia with sepsis x8 days and NSTEMI with discharge on 07/18. She did not require supplemental O2 but was treated with 2 g IV ceftriaxone x7 days for strep pneumo community-acquired pneumonia. She was also noted to have orthostatic hypotension treated with IV fluids and compression stockings. Hemoglobin A1c was elevated at 11.5. Throughout admission, Glucose levels normalized and she reports well-controlled blood glucose levels since arrival home. She tells me she had been feeling better no developed significant dyspnea both at rest and with exertion earlier today. She has no known chronic lung disease. She does have a nonproductive cough but states this has been ongoing. No fevers or chills. No known sick contacts. She did have some pleuritic chest pain in the right upper chest this has resolved. She has also had 2 prolonged flights to and from [place] within the last month. No known history of DVT or PE. She has been eating and drinking without difficulty. On arrival, patient afebrile, no hypoxia or hypotension. Patient is noted to be significantly dyspneic on exertion, but no ambulatory hypoxia noted on my exam. There is no leukocytosis. Renal function normal, electrolyte levels normal. Glucose 127. Lactic acid 1.7. Troponin undetectable, BNP 28. Negative for influenza, COVID-19, RSV. Chest x-ray shows right upper lobe consolidation, likely residual infiltrate from recently treated pneumonia. EKG shows normal sinus rhythm, rate 84 with t wave inversions in III and , no lata or depressions. In the ED has received 2 g IV ceftriaxone. CTA chest pending. This 58yo with DM2, HTN, HLD, Amos's esophagus, and Charcot foot had recent Covid infection followed by pneumococcal pneumonia treated at [facility]. She presented with presyncope and dyspnea and admitted for concern for persistent pneumonia. Hospital course by problem: presyncope due to orthostatic hypotension - hydrated with IV NS; clonidine discontinued; orthostasis resolved persistent pneumonia - PCT low, RVP negative, BCx negative - Pulmonary and ID consulted, started levofloxacin 07/25/23, total 14d (2 days done in hospital, 12 days prescribed upon discharge) - MRSA swab negative, HIV negative dyspnea - no PE on CTA - TTE 07/25/23: 1. Normal LV ejection fraction 65-70% with grade 1 diastolic dysfunction 2. Normal cardiac valvular Doppler 3. Mildly dilated ascending aorta 3.7 cm 4. Normal RV systolic pressure 5. No gross pericardial effusion - ultimately attributed to pneumonia DM2 with hyperglycemia, A1c 11.5 - basal-bolus insulin hypertension - restarted lisinopril to replace clonidine. previously discontinued due to BRISA during hospitalization for pneumococcal pneumonia. repeat BMP in 1 week ordered. She was discharged home with VNA services. Time Spent with Patient Time attestation: Total time managing care of this patient today __35__ minutes. Discharge coordination time: Greater than 30 minutes Quality: Safe Use of Opioids Does Pt have an Active Cancer Diagnosis on the Problem List?: No Quality: Stroke Does the patient have a stroke diagnosis?: No Physical Exam Vital Signs: Vital Signs: Last Vital Signs Temp 97.3 F 07/27/23 10:56 Pulse 90 07/27/23 10:56 Resp 20 07/27/23 10:56 BP 143/74 H 07/27/23 10:56 Pulse Ox 98 07/27/23 10:56 O2 Del Method Room Air 07/27/23 10:56 BMI result Body Mass Index 39.8 Gen: in no acute distress HEENT: sclera anicteric, moist mucus membranes Neck: supple Lungs: diminished air entry R Heart: regular rate and rhythm, no murmurs Abd: soft, non-tender, non-distended Ext: no edema Skin: warm/well-perfused Neuro: alert and oriented x3, no focal findings Psych: appropriate affect DS: Data Data Completed and Pending Completed studies during hospitalization [Text1]: Laboratory Results WBC 5.7 X10*3/uL (4.8-10.8) 07/27/23 05:32 RBC 3.43 X10*6/uL (4.20-5.50) L 07/27/23 05:32 Hgb 9.6 g/dl (12.0-16.0) L 07/27/23 05:32 Hct 29.6 % (37.0-47.0) L 07/27/23 05:32 MCV 86.3 fL (80.0-98.0) 07/27/23 05:32 MCH 28.0 pg (27.0-33.0) 07/27/23 05:32 MCHC 32.4 g/dl (31.0-35.0) 07/27/23 05:32 RDW 14.9 % (11.0-16.0) 07/27/23 05:32 Plt Count 244 X10*3/uL (160-400) 07/27/23 05:32 MPV 8.9 fL (9.4-12.3) L 07/27/23 05:32 Immature Gran % (Auto) 0.5 % (0.0-0.4) H 07/25/23 05:41 Neut % (Auto) 46.2 % (45-73) 07/25/23 05:41 Lymph % (Auto) 41.1 % (20-40) H 07/25/23 05:41 Tompkins % (Auto) 7.1 % (2-11) 07/25/23 05:41 Eos % (Auto) 4.0 % (0-4) 07/25/23 05:41 Baso % (Auto) 1.1 % (0-2) 07/25/23 05:41 Lymph # (Auto) 2.7 X10*3/uL (1.2-4.9) 07/25/23 05:41 Tompkins # (Auto) 0.5 X10*3/uL (0.1-1.2) 07/25/23 05:41 Eos # (Auto) 0.3 X10*3/uL (0.0-0.4) 07/25/23 05:41 Baso # (Auto) 0.1 X10*3/uL (0.0-0.2) 07/25/23 05:41 Abs Immat Gran (auto) 0.03 X10*3/uL (0.00-0.03) 07/25/23 05:41 Absolute Neuts (auto) 3.0 x10*3/uL (2.0-8.3) 07/25/23 05:41 Absolute Nucleated RBC 0.000 X10*3/uL (0.0-0.012) 07/27/23 05:32 Nucleated RBC % (auto) 0.0 /100WBC (0.0-0.2) 07/27/23 05:32 Absolute Retic 0.157 X10*6/uL (0.026-0.095) H 07/27/23 05:32 Percent Retic 4.6 % (0.5-1.8) H 07/27/23 05:32 Immature Retic Fraction 9.0 % (3.0-15.9) 07/27/23 05:32 Retic Hgb Equivalent 33.4 pg (30.0-35.0) 07/27/23 05:32 PT 11.7 SEC (11.1-13.3) 07/24/23 17:59 INR 1.0 (0.9-1.1) 07/24/23 17:59 D-Dimer High Sensitivty 373 NG/ML 07/24/23 17:59 Sodium 140 mmol/L (135-145) 07/27/23 05:32 Potassium 4.3 mmol/L (3.3-5.1) 07/27/23 05:32 Chloride 113 mmol/L (96-108) H 07/27/23 05:32 Carbon Dioxide 16 mmol/L (22-29) L 07/27/23 05:32 Anion Gap 15 (12-20) 07/27/23 05:32 BUN 19 mg/dL (9-16) H 07/27/23 05:32 Creatinine 1.08 mg/dL (0.5-1.4) 07/27/23 05:32 Estim Creat Clear Calc 70.3 07/27/23 05:32 Estimated GFR 52 07/27/23 05:32 POC Glucose 210 mg/dL (60-115) H 07/27/23 11:05 Random Glucose 139 mg/dL (60-115) H 07/27/23 05:32 Lactic Acid 1.7 mmol/L (0.5-2.0) 07/24/23 17:59 Calcium 9.5 mg/dL (8.4-10.2) 07/27/23 05:32 Magnesium 1.8 mg/dL (1.6-2.6) 07/24/23 17:59 Iron 63 mcg/dL (30-160) 07/27/23 05:32 TIBC 243 mcg/dL (228-428) 07/27/23 05:32 % Saturation 26 % (15-50) 07/27/23 05:32 Unsat Iron Binding 180 ug/dL 07/27/23 05:32 Total Bilirubin 0.3 mg/dL (0.0-1.0) 07/24/23 17:59 Direct Bilirubin 0.1 mg/dL (0.0-0.5) 07/24/23 17:59 AST 20 U/L (5-31) 07/24/23 17:59 ALT 17 U/L (0-31) 07/24/23 17:59 Alkaline Phosphatase 106 U/L (39-117) 07/24/23 17:59 Lactate Dehydrogenase 265 U/L (122-220) H 07/27/23 05:32 Troponin I High Sens < 2.7 ng/L (<3.5-17.0) 07/24/23 17:59 C-Reactive Protein 0.23 mg/dL (< or = 0.50) 07/27/23 05:32 B-Natriuretic Peptide 28 pg/mL (<100) 07/24/23 17:59 Total Protein 7.1 g/dL (6.5-8.0) 07/24/23 17:59 Albumin 3.2 g/dL (3.5-5.0) L 07/24/23 17:59 Vitamin B12 518 pg/mL (200-900) 07/27/23 05:32 Folate 6.3 ng/mL (> or = 4.0) 07/27/23 05:32 Procalcitonin 0.05 ng/mL 07/27/23 05:32 Urine Color Yellow 07/25/23 06:03 Urine Appearance Clear 07/25/23 06:03 Urine pH 6.0 (5.0-9.0) 07/25/23 06:03 Ur Specific Holden 1.025 (1.005-1.025) 07/25/23 06:03 Urine Protein 30 (1+) mg/dL (Neg-Trace) H 07/25/23 06:03 Urine Glucose (UA) Negative mg/dL (Negative) 07/25/23 06:03 Urine Ketones Negative mg/dL (Negative) 07/25/23 06:03 Urine Blood Negative (Negative) 07/25/23 06:03 Urine Nitrite Negative (Negative) 07/25/23 06:03 Ur Leukocyte Esterase Moderate (2+) (Negative) H 07/25/23 06:03 Urine RBC 0-2 /HPF (0-2) 07/25/23 06:03 Urine WBC 21-50 /HPF (0-5) H 07/25/23 06:03 Ur Squamous Epith Cells 0-2 /HPF (0-2) 07/25/23 06:03 Urine Bacteria None Seen (None Seen) 07/25/23 06:03 Hyaline Casts 0-2 /LPF (0-2) 07/25/23 06:03 Nasal Screen MRSA (PCR) NEGATIVE (Negative) 07/26/23 08:45 Nasal S. aureus Screen NEGATIVE (Negative) 07/26/23 08:45 Nasal MRSA/S.aureus Interp SEE NOTE 07/26/23 08:45 Respiratory Panel Elizondo See Note 07/25/23 00:21 Adenovirus (Rapid PCR) Not Detected (Not Detect.) 07/25/23 00:21 B.pert (TEM-PCR) Not Detected (Not Detect.) 07/25/23 00:21 B.parapertussis DNA PCR Not Detected (Not Detect.) 07/25/23 00:21 C. pneumoniae DNA (PCR) Not Detected (Not Detect.) 07/25/23 00:21 Coronavirus OC43 (PCR) Not Detected (Not Detect.) 07/25/23 00:21 Coronavirus HKU1 (PCR) Not Detected (Not Detect.) 07/25/23 00:21 Coronavirus 229E (PCR) Not Detected (Not Detect.) 07/25/23 00:21 Coronavirus NL63 (PCR) Not Detected (Not Detect.) 07/25/23 00:21 HIV 1&2 Ab/P24 Ag 4thGn Nonreactive (Nonreactive) 07/26/23 05:38 Human Metapneumovir PCR Not Detected (Not Detect.) 07/25/23 00:21 Influenza A (RT-PCR) Not Detected (Not Detect.) 07/25/23 00:21 Influenza Type A (PCR) NEGATIVE (Negative) 07/24/23 17:59 Influenza B (RT-PCR) Not Detected (Not Detect.) 07/25/23 00:21 Influenza Type B (PCR) NEGATIVE (Negative) 07/24/23 17:59 M. pneumoniae (PCR) Not Detected (Not Detect.) 07/25/23 00:21 Parainfluenza 1 (PCR) Not Detected (Not Detect.) 07/25/23 00:21 Parainfluenza 2 (PCR) Not Detected (Not Detect.) 07/25/23 00:21 Parainfluenza 3 (PCR) Not Detected (Not Detect.) 07/25/23 00:21 Parainfluenza 4 (PCR) Not Detected (Not Detect.) 07/25/23 00:21 RSV (PCR) Not Detected (Not Detect.) 07/25/23 00:21 RSV RNA Qual (PCR) NEGATIVE (Negative) 07/24/23 17:59 Entero/Rhino (PCR) Not Detected (Not Detect.) 07/25/23 00:21 SARS-CoV-2 RNA (RT-PCR) Not Detected (Not Detect.) 07/25/23 00:21 Impressions Chest X-Ray 07/24/23 17:37 IMPRESSION: Right upper lobe consolidation. Suspect pneumonia. Correlation and follow-up needed. Chest CTA 10/24/23 23:30 IMPRESSION: 1. No pulmonary embolus identified. 2. Extensive consolidation throughout the right upper lobe and to a lesser extent patchy consolidation in the right middle lobe, suspicious for pneumonia. Imaging follow-up is recommended to assess for resolution. VTE: negative. Venous Duplex 07/26/23 08:56 IMPRESSION: No DVT demonstrated in the right upper extremity. Discharge Plan Discharge Anticipated Discharge Date/Time: 07/27/23 12:33 Patient Disposition: Home Health Service Discharge Diagnosis: presyncope due to orthostatic hypotension, dyspnea due to pneumonia Referrals: [facility] [place] [Other] - 1 Week Joel Alegria FNP- [Primary Care Provider] - 1 Week Discharge Medications: New lisinopril 10 mg Tablet 10 mg PO DAILY Qty: 30 0RF Protocol: Hold for SBP< HOLD for SBP < : 90 levofloxacin 750 mg Tablet 750 mg PO Q24H Qty: 12 0RF Continued acetaminophen 650 mg Tablet Extended Release 650 mg PO Q12H PRN (Reason: Pain (Scale Score 1-3)) insulin glargine [Basaglar KwikPen U-100 Insulin] 100 unit/mL (3 mL) insulin pen 50 unit subcut BEDTIME trazodone 100 mg tablet 100 mg PO BEDTIME atorvastatin 80 mg tablet 80 mg PO DAILY (DME) Dexcom G6 Sensor Device See Rx Instructions .ROUTE Q10D Qty: 1 Rx Instructions: As directed gabapentin 300 mg capsule 300 mg PO TID hyoscyamine sulfate 0.125 mg tablet 0.125 mg PO BID PRN (Reason: cramps) pantoprazole 20 mg tablet,delayed release (DR/EC) 20 mg PO DAILY@0630 insulin aspart U-100 [Novolog FlexPen U-100 Insulin] 100 unit/mL (3 mL) insulin pen 16 unit subcut TIDAC (DME) Dexcom G6 Transmitter Device See Rx Instructions .ROUTE QWEEK Qty: 1 Rx Instructions: As directed tramadol 50 mg tablet 50 mg PO Q6H PRN (Reason: Pain (Scale Score 4-6)) hydroxyzine HCl 10 mg tablet 10 mg PO DAILY PRN (Reason: Anxiety) bupropion HCl 300 mg tablet extended release 24 hr 300 mg PO DAILY Discontinued clonidine HCl 0.1 mg tablet 0.1 mg PO BID Discharge Orders: Discharge Order (Routine); Ordered 07/27/23 Ordered By: Venita Cook Diet: Diabetic diet Activity on Discharge: As tolerated Stand Alone Forms: Patient Portal Discharge page Other Ambulatory Orders: Basic Metabolic Panel (Routine) Timeframe: 1 Week Facility: [facility] - Location: Laboratory Ordered By: Venita Cook Care Plan Goals: recovery from pneumonia Health Concerns: presyncope due to orthostatic hypotension, dyspnea due to pneumonia Plan of Treatment: levofloxacin 750 mg daily for 12 days repeat chest X-ray in 4 weeks; ask your PCP for an order stop clonidine resume lisinopril 10 mg once daily recheck BMP in 1 week Please follow up with your primary care doctor within 1 week. Return to the hospital if you experience recurrent or worsening symptoms. Assessment: See Discharge Summary.
--- NOTE | 2023-07-27 14:34 | MHC.CM.PN ---
Pt is medically cleared for D/C home with [facility] at home VNA services. Pt has arranged her own transportation home.
== END 2023-07-27 15:00 | disposition home health service (06) | DRG 139 ==
LOC: HO.ED 18:58 → HO.EDOVER 23:07 → HO.IMC 07-25 14:37
PROVIDERS: Nurse Practitioner Family; Student in an Organized Health Care Education/Training Program; Admitting Provider Physician Assistant; Emergency Provider Emergency Medicine Emergency Medical Services; PCP Nurse Practitioner Family; Visit Provider Family Medicine
DX: J18.9 Pneumonia, unspecified organism (principal); J96.01 Acute respiratory failure with hypoxia; J84.10 Pulmonary fibrosis, unspecified; I10 Essential (primary) hypertension; E11.9 Type 2 diabetes mellitus without complications; U09.9 Post COVID-19 condition, unspecified; K22.70 Barrett's esophagus without dysplasia; E78.5 Hyperlipidemia, unspecified; F39 Unspecified mood [affective] disorder; I95.1 Orthostatic hypotension; Z20.822 Contact with and (suspected) exposure to COVID-19; Z79.4 Long term (current) use of insulin; Z79.899 Other long term (current) drug therapy
CPT/HCPCS: 0241U; 36415; 71046; 71275; 80048; 80076; 81001; 82607; 82746; 82947; 83540; 83605; 83615; 83735; 83880; 84145; 84484; 85025; 85027; 85045; 85379; 85610; 86140; 87040; 87086; 87088; 87186; 87389; 87633; 87640; 87641; 93005; 93306; 93971; 97116; 97161; 99285; J0696; J1956; Q9957; Q9967

== ENCOUNTER 2023-07-24 22:24 | Outpatient (BNV) | payer BC, SELFPAY | END 2023-07-25 07:00 | PROVIDERS: Admitting Provider Physician Assistant; Emergency Provider Emergency Medicine Emergency Medical Services; Visit Provider Internal Medicine Cardiovascular Disease | DX: I51.9 Heart disease, unspecified (principal); R06.02 Shortness of breath | CPT/HCPCS: 93306 ==

== ENCOUNTER → 2023-07-24 22:24 | Outpatient (BNV) | payer BC, SELFPAY | PROVIDERS: Admitting Provider Physician Assistant; Emergency Provider Emergency Medicine Emergency Medical Services; PCP Nurse Practitioner Family; Visit Provider Hospitalist | DX: J18.9 Pneumonia, unspecified organism (principal); J96.01 Acute respiratory failure with hypoxia | CPT/HCPCS: 99223 ==

== ENCOUNTER → 2023-07-24 22:24 | Outpatient (BNV) | payer BC, SELFPAY | PROVIDERS: Admitting Provider Physician Assistant; Emergency Provider Emergency Medicine Emergency Medical Services; Visit Provider Physician Assistant | DX: R06.00 Dyspnea, unspecified (principal); J18.9 Pneumonia, unspecified organism; I95.1 Orthostatic hypotension; E11.65 Type 2 diabetes mellitus with hyperglycemia; I10 Essential (primary) hypertension | CPT/HCPCS: 99223; 99232; 99239; G0180 ==

== ENCOUNTER → 2023-07-24 22:24 | Outpatient (BNV) | payer BC, SELFPAY | PROVIDERS: Admitting Provider Physician Assistant; Emergency Provider Emergency Medicine Emergency Medical Services; PCP Nurse Practitioner Family; Visit Provider Internal Medicine | DX: R06.00 Dyspnea, unspecified (principal); R06.02 Shortness of breath | CPT/HCPCS: 99222 ==

== ENCOUNTER 2023-07-31 07:58 | Outpatient (AMB) | payer BC, SELFPAY ==
--- NOTE | 2023-07-31 08:05 | A.OFFVIS_ITS ---
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 He states her tremors started about 6 months ago and are getting worse. She notices it more when holding something. Her psychodramatist has become weak. Surveillance Sensor Operator Required: No Allergies No Known Allergies Allergy (Verified 07/31/23 08:07) HPI HPI Comments History of Present Illness Details 58y/o right handed female comes for eval uation of tremors. She noticed tremors in her bilateral hands about 6 mths ago.The tremors are episodic and mostly with action. When she holds something in her hands like a phone or plate she would notice tremors, she has noticed difficulty with handwriting. she denies rest tremors, denies change in voice or head tremors, denies neck pain. she has numbness occasionally but no tingling.she denies weakness but has difficulty opening a jar or bottle. she denies any family history of tremors, no h/o head injury. she denies any sleep issues REM behavior disorder etc.Denies drooling she uses a walker due to issues with left foot - had surgery 3 years ago for charcots foot. She has diabetes and recently went into DKA ( 3 weeks ago ). [facility] Medical History (Updated 07/31/23 @ 09:29 by Chiquita Ramires MD) Action tremor Chronic headaches GERD (gastroesophageal reflux disease) Hyperlipidemia Depression Pneumonia Sepsis Barretts esophagus Dyslipidemia HTN (hypertension) Charcot's joint of foot Diabetes Surgical History H/O foot surgery Hx of cholecystectomy H/O: hysterectomy Family History Son Substance use disorder Father Substance use disorder Mother Substance use disorder Family/Other Substance use disorder Social History Household Members: None Housing: Condominium Do you presently have visiting nurse or other home services: No Alcohol intake: never Patient Tobacco Use Status: Never used Tobacco e-Cigarette/Vaping Use: Never Used Second Hand Smoke Exposure: No Advance Directives Date on File: 07/25/23 service: No Current occupational status: employed 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 Current occupational exposures/hazards: No Cognitive needs: No Hearing needs: No Vision needs: No Review of Systems Const All systems reviewed & are unremarkable except as noted in HPI and below Denies body aches, Denies chills, Denies fatigue, Denies fever(s) and Denies headache(s) ENT Denies headache(s), Reports hoarseness, Denies nasal congestion, Denies nasal discharge and Reports sore throat Card Denies dyspnea and Denies dyspnea on exertion Resp Denies chest congestion, Reports cough, Denies excessive phlegm production, Denies dyspnea and Denies dyspnea on exertion GI Denies abdominal pain, Denies diarrhea, Denies nausea and Denies vomiting Neuro Denies headache(s) Endo Denies fatigue Physical Exam Vital Signs: Last Vital Signs Pulse 94 07/31/23 08:09 Resp 19 07/31/23 08:09 BP 122/78 07/31/23 08:09 Pulse Ox 100 07/31/23 08:09 Oxygen Delivery Method Room Air 07/31/23 08:09 BMI result Body Mass Index 39.3 Const General: cooperative and comfortable Nutritional Appearance: obese Orientation/consciousness: patient oriented x3 Neuro Other: antalgic gait, slow , limps on her left No tremors normal tone, no cog wheel rigidty Fine finger movements - mildly decreased bilaterally General: patient oriented x3, tone normal, moves all extremities and no focal motor deficits Cranial nerves: Yes Nystagmus not present and Yes Normal facial strength present Cognition (Neuro): normal cognition Gait exam (Neuro): Antalgic gait present Motor exam (neuro): 5/5 motor strength present throughout and no tremor noted Deep tendon reflexes (DTR's): Right triceps reflex intensity grade: 0, Left triceps reflex intensity grade: 0, Rt Biceps (C5, C6): 1+, Left biceps reflex intensity grade: 1+, Right brachioradialis reflex intensity grade: 0, Left brachioradialis reflex intensity grade: 0, Right patellar reflex intensity grade: 1+ and Left patellar reflex intensity grade: 1+ Coordination: [id number] test normal Assessment & Plan Assessment & Plan (1) Action tremor: Code(s): G25.2 - Other specified forms of tremor Plan No evidence of Parkinsons on todays exam Her tremors are likely exaggerated physiological tremors or due to metabolic disorder. I discussed various management options, will follow her up clinically as needed. Coding Level of Care Code New Pt Level 4 (77575) Diagnoses Action tremor G25.2
[2023-07-31 08:09] VITALS: BP 122/78; PULSE 94; RESP 19; O2SAT 100; BMI 39.3
== END 2023-07-31 08:37 | disposition home or self-care (01) ==
PROVIDERS: PCP Nurse Practitioner Family; Visit Provider Psychiatry & Neurology Neurology
DX: G25.2 Other specified forms of tremor (principal)
CPT/HCPCS: 99204

== ENCOUNTER → 2023-07-31 07:58 | Outpatient (BNVA) | payer BC, SELFPAY | PROVIDERS: PCP Nurse Practitioner Family; Visit Provider Psychiatry & Neurology Neurology ==

== ENCOUNTER 2023-07-31 09:37 | Outpatient (AMB) | payer OTHER, SELFPAY ==
--- NOTE | 2023-07-31 09:46 | A.OFFPC_ITS ---
Vital Signs 07/31/23 09:48 Height 5 ft 5 in Weight 236 lb BMI 39.3 BP 126/86 Blood Pressure Location Lt brachial Position Sitting Pulse 97 Pulse Source Pulse Oximeter Pulse Oximetry (%) 99 Oxygen Delivery Method Room Air Intake Visit Reasons: [facility] Int[place] Note: Pt is here today to f/u [facility] 07/24/23 Allergies No Known Allergies Allergy (Verified 07/31/23 10:54) Medication List - Last Reconciled 07/31/23 by DARVIN Esteban acetaminophen ER 650 mg PO Q12H PRN atorvastatin 80 mg PO DAILY blood-glucose sensor (Dexcom G6 Sensor device) As directed blood-glucose transmitter (Dexcom G6 Transmitter device) As directed bupropion HCl 300 mg PO DAILY gabapentin 300 mg PO TID hydroxyzine HCl 10 mg PO DAILY PRN hyoscyamine sulfate 0.125 mg PO BID PRN insulin aspart U-100 (Novolog FlexPen U-100 Insulin aspart) 16 units subcut TIDAC insulin glargine (Basaglar KwikPen U-100 Insulin) 50 units subcut BEDTIME levofloxacin 750 mg PO Q24H lisinopril 10 mg See Protocol PO DAILY pantoprazole 20 mg PO DAILY@0630 tramadol 50 mg PO Q6H PRN trazodone 100 mg PO BEDTIME Tobacco use date assessed: 07/31/23 Dental Screening Dental Screen Date: 07/31/23 Did you have a dental visit in the last 12 months?: Yes Did you have a dental problem in the last 6 months where you did not have access to dental care?: Yes Was dental information given to patient?: Patient has dentist HPI [facility] HPI Details Pt was seen in the ER on 07/24 c/o shortness of breath and cough. She had been diagnosed with COVID 2 weeks prior. Pt also had an NSTEMI and pneumonia prior to this and was treated at a hospital in [place]. CBC showed no leukocytosis, normocytic anemia not needing transfusion. BUN was 26, creatinine was 1.03. Troponin was negative, BNP WNL. Chest XR showed right upper lobe consolidation, likely residual infiltrate from recently treated pneumonia. EKG showed normal sinus rhythm, rate 84 with T wave inversions in III and , no JAMAAL or depressions. Pt was given ceftriaxone. D-dimer was elevated, CTA was negative for PE. Pt tested negative for COVID/flu/RSV. She was seen by pulmonology and ID. She was started on levofloxacin x14 days. MRSA swab was negative. TTE on 07/25 showed: Normal LV ejection fraction 65-70% with grade 1 diastolic dysfunction. Normal cardiac valvular Doppler. Mildly dilated ascending aorta 3.7 cm. Normal RV systolic pressure. No gross pericardial effusion. Pt was d/c on levofloxacin. Will repeat chest XR after she finishes antibiotics. Pt was restarted on lisinopril for HTN. Denies fever, chills, chest pain, and shortness of breath. She is still slightly weak, though starting to feel better overall. Pt is a diabetic, on an YARED and a statin. Due for A1C and microalbumin, will order. Denies polyuria, polydipsia, and neuropathy. Pt denies any signs and symptoms of hypoglycemia and does know how to correct it. Pt reports that her blood sugar has been in the low 100s. [facility] Medical History (Updated 07/31/23 @ 10:17 by DARVIN Esteban) Non-ST elevation [place] (NSTEMI) Action tremor Chronic headaches GERD (gastroesophageal reflux disease) Hyperlipidemia Depression Pneumonia Sepsis Barretts esophagus Dyslipidemia HTN (hypertension) Charcot's joint of foot Diabetes Surgical History H/O foot surgery Hx of cholecystectomy H/O: hysterectomy Family History Son Substance use disorder Father Substance use disorder Mother Substance use disorder Family/Other Substance use disorder Social History Household Members: None Housing: Condominium Do you presently have visiting nurse or other home services: No Alcohol intake: never Patient Tobacco Use Status: Never used Tobacco e-Cigarette/Vaping Use: Never Used Second Hand Smoke Exposure: No Advance Directives Date on File: 07/25/23 service: No Current occupational status: employed 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 Cruz Gilbert, Jenna Acosta, Rick Cohen and colleagues, with an educational gabriel from [employer]. Review of Systems Const Reports as per HPI Physical exam (Primary Care) Vital Signs: Last Vital Signs Pulse 97 07/31/23 09:48 BP 126/86 07/31/23 09:48 Pulse Ox 99 07/31/23 09:48 Oxygen Delivery Method Room Air 07/31/23 09:48 BMI result Body Mass Index 39.3 Tobacco/Smoking Status: Tobacco use Status Tobacco use date assessed 07/31/23 07/31/23 09:52 Patient Tobacco Use Status Never used Tobacco 07/31/23 09:47 e-Cigarette/Vaping Use Never Used 07/31/23 09:47 Thrive Assessment: Date of Thrive Assessment Date Thrive assessed 07/25/23 07/31/23 09:47 Const Other: using rolling walker General: cooperative Nutritional Appearance: obese Orientation/consciousness: patient oriented x3 Resp Effort & Inspection: normal respiratory effort Auscultation: clear to auscultation bilaterally and diminished lung sounds on the right (slight) Cardio Rate: regular rate Rhythm: regular rhythm Heart sounds: S1 normal heart sound present and S2 normal heart sound present Neuro General: patient oriented x3 Psych Appearance: grossly normal Mental Status: mental status grossly normal Speech and movement: Normal speech and movement present Affect: normal affect Attitude: cooperative Thought process: Normal thought process present Thought content: Normal thought content present Insight: Good insight present (Psych) Judgement: Good judgement present (Psych) Assessment and Plan Assessment & Plan (1) Pneumonia: Code(s): J18.9 - Pneumonia, unspecified organism Plan: Chest XR ordered cont antibiotic (2) Non-ST elevation RI (NSTEMI): Code(s): I21.4 - Non-ST elevation (NSTEMI) myocardial infarction Plan: Pt doing well, will refer to cardio for further eval (3) Diabetes mellitus with hyperglycemia: Code(s): E11.65 - Type 2 diabetes mellitus with hyperglycemia Plan: Labs ordered, referred to endo (4) DKA (diabetic ketoacidosis): Code(s): E11.10 - Type 2 diabetes mellitus with ketoacidosis without coma Plan: Referred to endo (as requested by pt), labs ordered Plan The patient agreed to the use of a medical health researcher for this encounter. Scribed for Joel Alegria DIVISION OPERATIONS SPECIALIST- by Geena Baxter medical health researcher, on 07/31/2023 at 10:00 EST. Orders: Orders XR chest 2V Today J18.9 - Pneumonia, unspecified organism Microalbumin, Random (w Creat) Today E11.65 - Type 2 diabetes mellitus with hyperglycemia Hemoglobin A1c Today E11.65 - Type 2 diabetes mellitus with hyperglycemia Referrals Endocrinology Referral E11.10 - Type 2 diabetes mellitus with ketoacidosis without coma Cardiology Referral I21.4 - Non-ST elevation (NSTEMI) myocardial infarction Coding Level of Care Code Est Pt Level 4 (23441) Diagnoses Pneumonia J18.9 Non-ST elevation RI (NSTEMI) I21.4 Diabetes mellitus with hyperglycemia E11.65 DKA (diabetic ketoacidosis) E11.10
[2023-07-31 09:48] VITALS: BP 126/86; PULSE 97; O2SAT 99; BMI 39.3
== END 2023-07-31 15:42 | disposition home or self-care (01) ==
PROVIDERS: PCP Nurse Practitioner Family; Visit Provider Nurse Practitioner Family
DX: J18.9 Pneumonia, unspecified organism (principal); I21.4 Non-ST elevation (NSTEMI) myocardial infarction; E11.65 Type 2 diabetes mellitus with hyperglycemia; E11.10 Type 2 diabetes mellitus with ketoacidosis without coma
CPT/HCPCS: 99214

== ENCOUNTER 2023-08-02 10:42 | Outpatient (AMB) | payer OTHER, SELFPAY ==
--- NOTE | 2023-08-02 10:44 | MHC.PC.OV ---
Vital Signs 08/02/23 10:47 Weight 236 lb BP 106/70 Blood Pressure Location Rt brachial Position Sitting Pulse 103 H Pulse Source Pulse Oximeter Pulse Oximetry (%) 97 Oxygen Delivery Method Room Air Intake Visit Reasons: Discuss FMLA/DKA Allergies No Known Allergies Allergy (Verified 08/02/23 10:47) Tobacco use date assessed: 07/31/23 HPI Discuss FMLA/DKA HPI Details Pt is experiencing orthostatic hypotension. Will decrease lisinopril from 10mg to 5mg. Denies chest pain, shortness of breath, headache, and blurred vision. Pt needs FMLA paperwork filled out, will fill out (pneumonia, covid, NSTEMI, DKA). Pt does have VNA services. She will be seeing cardiology and endocrinology. [facility] Medical History Non-ST elevation [place] (NSTEMI) Action tremor Chronic headaches GERD (gastroesophageal reflux disease) Hyperlipidemia Depression Pneumonia Sepsis Barretts esophagus Dyslipidemia HTN (hypertension) Charcot's joint of foot Diabetes Surgical History H/O foot surgery Hx of cholecystectomy H/O: hysterectomy Family History Son Substance use disorder Father Substance use disorder Mother Substance use disorder Family/Other Substance use disorder Social History Household Members: None Housing: Condominium Do you presently have visiting nurse or other home services: No Alcohol intake: never Patient Tobacco Use Status: Never used Tobacco e-Cigarette/Vaping Use: Never Used Second Hand Smoke Exposure: No Advance Directives Date on File: 07/25/23 service: No Current occupational status: employed 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 Cruz Gilbert, Jenna Acosta, Rick Cohen and colleagues, with an educational gabriel from [employer]. Review of Systems Const Reports as per HPI Physical exam (Primary Care) Vital Signs: Last Vital Signs Pulse 103 H 08/02/23 10:47 BP 106/70 08/02/23 10:47 Pulse Ox 97 08/02/23 10:47 Oxygen Delivery Method Room Air 08/02/23 10:47 Tobacco/Smoking Status: Tobacco use Status Tobacco use date assessed 07/31/23 08/02/23 10:46 Patient Tobacco Use Status Never used Tobacco 08/02/23 10:46 e-Cigarette/Vaping Use Never Used 08/02/23 10:46 Thrive Assessment: Date of Thrive Assessment Date Thrive assessed 07/25/23 08/02/23 10:46 Const General: cooperative Nutritional Appearance: obese morbidly obese Orientation/consciousness: patient oriented x3 Limitations: ambulation with walker Resp Effort & Inspection: normal respiratory effort Auscultation: clear to auscultation bilaterally Cardio Rate: regular rate Rhythm: regular rhythm Heart sounds: S1 normal heart sound present and S2 normal heart sound present Neuro General: patient oriented x3 Extrem Right lower extremity: no edema Left lower extremity: no edema Psych Appearance: grossly normal Mental Status: mental status grossly normal Speech and movement: Normal speech and movement present Affect: normal affect Attitude: cooperative Thought process: Normal thought process present Thought content: Normal thought content present Insight: Good insight present (Psych) Judgement: Good judgement present (Psych) Assessment and Plan Assessment & Plan (1) DKA (diabetic ketoacidosis): Code(s): E11.10 - Type 2 diabetes mellitus with ketoacidosis without coma (2) Non-ST elevation [place] (NSTEMI): Code(s): I21.4 - Non-ST elevation (NSTEMI) myocardial infarction (3) Orthostatic hypotension: Code(s): I95.1 - Orthostatic hypotension (4) Pneumonia: Code(s): J18.9 - Pneumonia, unspecified organism Plan The patient agreed to the use of a medical transcription editor for this encounter. Scribed for DARVIN Saleh by Geena Baxter medical transcription editor, on 08/02/2023 at 10:55 EST. Coding Level of Care Code Est Pt Level 3 (52250) Diagnoses DKA (diabetic ketoacidosis) E11.10 Non-ST elevation MO (NSTEMI) I21.4 Orthostatic hypotension I95.1 Pneumonia J18.9
[2023-08-02 10:47] VITALS: BP 106/70; PULSE 103; O2SAT 97
== END 2023-08-02 11:25 | disposition home or self-care (01) ==
PROVIDERS: PCP Nurse Practitioner Family; Visit Provider Nurse Practitioner Family
DX: E11.10 Type 2 diabetes mellitus with ketoacidosis without coma (principal); I21.4 Non-ST elevation (NSTEMI) myocardial infarction; I95.1 Orthostatic hypotension; J18.9 Pneumonia, unspecified organism
CPT/HCPCS: 99213

== ENCOUNTER 2023-08-10 10:27 | Outpatient (REF) | payer BC, SELFPAY ==
--- NOTE | ~2023-08-10 | XR_ITS ---
EXAMINATION: XR CHEST CLINICAL INFORMATION: Pneumonia COMPARISON: 07/24/2023 TECHNIQUE: 2 views of the chest were obtained. FINDINGS: Low lung volumes again noted. Heart and mediastinum and left lung within normal limits. Persistent albeit improved increased markings right upper lobe. Right minor fissure remains elevated. No effusions. Bony structures are intact. XR/XR chest 2V IMPRESSION: Improved, but persistent right upper lobe markings following right upper and middle lobe pneumonia in July. Follow-up to complete resolution recommended.
[2023-08-10 13:14] LABS: MANUAL DIFF FLAG NO
[2023-08-10 13:34] LABS: Basophils Absolute Auto 0.1 X10*3/uL (0.0-0.2); Eosinophils Absolute Auto 0.3 X10*3/uL (0.0-0.4); Eosinophils Percent Auto 4.4 % (0-4); Hematocrit 35.5 % (37.0-47.0); Hemoglobin 11.3 g/dl (12.0-16.0); Imm Gran Abs Auto 0.02 X10*3/uL (0.00-0.03); Imm Gran Pct Auto 0.3 % (0.0-0.4); Lymphocytes Absolute Auto 2.4 X10*3/uL (1.2-4.9); Lymphocytes Percent Auto 33.9 % (20-40); Mean Corpuscular HGB Conc 31.8 g/dl (31.0-35.0); Mean Corpuscular Hemoglobin 27.2 pg (27.0-33.0); Mean Corpuscular Volume 85.3 fL (80.0-98.0); Mean Platelet Volume 9.3 fL (9.4-12.3); Monocytes Absolute Auto 0.5 X10*3/uL (0.1-1.2); Monocytes Percent Auto 6.8 % (2-11); Neutrophils Absolute Auto 3.8 x10*3/uL (2.0-8.3); Neutrophils Percent Auto 53.6 % (45-73); Platelet Count 305 X10*3/uL (160-400); Red Blood Count 4.16 X10*6/uL (4.20-5.50); Red Cell Distribution Width 14.6 % (11.0-16.0); White Blood Count 7.1 X10*3/uL (4.8-10.8)
[2023-08-10 13:46] LABS: Estimated Average Glucose 177 mg/dL; Hemoglobin A1C 185.2865 umol/L; Hemoglobin A1c % 7.8 % (<6.0)
[2023-08-10 14:01] LABS: Alanine Aminotransferase 11 U/L (0-31); Albumin Level 3.8 g/dL (3.5-5.0); Alkaline Phosphatase 120 U/L (39-117); Anion Gap 12 (12-20); Aspartate Amino Transferase 17 U/L (5-31); Bilirubin Total 0.3 mg/dL (0.0-1.0); Blood Urea Nitrogen 26 mg/dL (9-16); Calcium 9.9 mg/dL (8.4-10.2); Carbon Dioxide 24 mmol/L (22-29); Chloride 109 mmol/L (96-108); Cholesterol 200 mg/dL (<200); Estimated Glomerular Filt Rate 46; Glucose Fasting 127 mg/dL (60-99); HDL Cholesterol 34 mg/dL (>40); LDL Cholesterol Calculated 131 mg/dL (<100); Potassium 4.6 mmol/L (3.3-5.1); Sodium 140 mmol/L (135-145); TSH reflex Free T4 1.57 uIU/mL (0.32-4.0); Total Protein 7.5 g/dL (6.5-8.0); Triglycerides 175 mg/dL (<150)
[2023-08-10 14:10] LABS: Creatinine Urine 138.15 mg/dL; Microalbum/Creatinine Ratio Ur 99.8 ug/mg cr (<30)
[2023-08-10 20:00] LABS: Appearance Urine Cloudy; Color Urine Yellow; Glucose Urine UA Negative (Negative); Leukocyte Esterase Urine Moderate (2+) (Negative); Nitrite Urine Negative (Negative); PH 5.5 (5.0-9.0); UMIC TRIGGER UACC YES; Urine Blood Moderate (2+) (Negative); Urine Ketones Negative (Negative); Urine Protein 30 (1+) mg/dL (Neg-Trace)
[2023-08-10 20:20] LABS: Bacteria Urine None Seen (None Seen); Other Crystals Urine Present; UACC Culture Trigger YES; WBC Urine 21-50 /HPF (0-5)
== END 2023-08-10 10:28 | disposition home or self-care (01) ==
LOC: HO.HMGCX 10:27
PROVIDERS: PCP Nurse Practitioner Family; Visit Provider Nurse Practitioner Family
DX: Z00.00 Encounter for general adult medical examination without abnormal findings (principal); E11.65 Type 2 diabetes mellitus with hyperglycemia; J18.9 Pneumonia, unspecified organism; R82.90 Unspecified abnormal findings in urine
CPT/HCPCS: 36415; 71046; 80053; 80061; 81001; 81003; 82043; 82570; 83036; 84443; 85025; 87086

== ENCOUNTER 2023-08-15 12:59 | Outpatient (REF) | payer BC, SELFPAY ==
[2023-08-15 17:13] LABS: Appearance Urine Clear; Color Urine Yellow; Glucose Urine UA 100 mg/dL (Negative); Leukocyte Esterase Urine Trace (Negative); Nitrite Urine Negative (Negative); PH 5.5 (5.0-9.0); UMIC TRIGGER UACC YES; Urine Blood Negative (Negative); Urine Ketones Negative (Negative); Urine Protein 30 (1+) mg/dL (Neg-Trace)
[2023-08-15 18:05] LABS: Bacteria Urine None Seen (None Seen); Calcium Oxalate Crystals Urine Present; Hyaline Casts Urine 0-2 /LPF (0-2); Squamous Epithelial Cell Urine 0-2 /HPF (0-2); UACC Culture Trigger YES
== END 2023-08-15 13:00 | disposition home or self-care (01) ==
LOC: HO.HMGCLDS 12:59
PROVIDERS: Internal Medicine; PCP Nurse Practitioner Family; Visit Provider Nurse Practitioner Family
DX: R31.9 Hematuria, unspecified (principal)
CPT/HCPCS: 81001; 87086

== ENCOUNTER 2023-08-21 13:56 | Outpatient (AMB) | payer BC, SELFPAY ==
[2023-08-21 14:00] VITALS: BP 122/64; PULSE 100; O2SAT 100; BMI 40.8
--- NOTE | 2023-08-21 14:00 | MHC.OFFVIS ---
Intake Vital Signs 08/21/23 14:00 Height 5 ft 5 in Weight 245 lb BMI 40.8 BP 122/64 Blood Pressure Location Rt brachial Position Sitting Pulse 100 Pulse Source Pulse Oximeter Pulse Oximetry (%) 100 Oxygen Delivery Method Room Air Intake Visit Reasons: Abnormal chest x ray Domestic Violence Counselor Required: No Laboratory Mechanic Helper: Laboratory Mechanic Helper offered & declined Accompanied by: Self / Same As Patient Allergies No Known Allergies Allergy (Verified 08/21/23 14:04) Medication List - Last Reconciled 08/21/23 by Rhina Falk LPN acetaminophen ER 650 mg PO Q12H PRN atorvastatin 80 mg PO DAILY blood-glucose sensor (Dexcom G6 Sensor device) As directed blood-glucose transmitter (Dexcom G6 Transmitter device) As directed bupropion HCl 300 mg PO DAILY fluconazole 150 mg PO Q3D 2 doses gabapentin 300 mg PO TID hydroxyzine HCl 10 mg PO DAILY PRN hyoscyamine sulfate 0.125 mg PO BID PRN insulin aspart (niacinamide) 100 unit/mL (3 mL) (Fiasp FlexTouch U-100 Insulin) 10 units subcut TID insulin aspart U-100 (Novolog FlexPen U-100 Insulin aspart) 16 units subcut TIDAC insulin glargine (Basaglar KwikPen U-100 Insulin) 50 units subcut BEDTIME insulin glargine (Basaglar KwikPen U-100 Insulin) 50 units subcut QPM lisinopril 5 mg See Protocol PO DAILY pantoprazole 20 mg PO DAILY@0630 tramadol 50 mg PO Q6H PRN trazodone 100 mg PO BEDTIME HPI Abnormal chest x ray HPI Details Ewelina is a pleasant 58 year old, never smoker, with underlying history of COVID in 2020 requiring 8 day ICU stay and recent pnuemonia and [place]. She was referred for pulmonary evaluation after abnormal CXR. She recently was admitted to a hospital in [place] as well as [facility] for pneumonia, treated with IV antibiotics and a 14 day course of prednisone. Although she feels her symptoms are improving, she is still with fatigue, persistent dry cough, chest congestion and dyspnea on exertion. She is currently doing PT/OT at home, with notable improvements. She denies any prior history of lung conditions. 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 [facility] Medical History Non-ST elevation [place] (NSTEMI) Action tremor Chronic headaches GERD (gastroesophageal reflux disease) Hyperlipidemia Depression Pneumonia Sepsis Barretts esophagus Dyslipidemia HTN (hypertension) Charcot's joint of foot Diabetes Surgical History H/O foot surgery Hx of cholecystectomy H/O: hysterectomy Family History Son Substance use disorder Father Substance use disorder Mother Substance use disorder Family/Other Substance use disorder Social History (Updated 08/21/23 @ 14:08 by Rhina Falk LPN) Household Members: None Housing: Condominium Do you presently have visiting nurse or other home services: No Alcohol intake: never Patient Tobacco Use Status: Never used Tobacco e-Cigarette/Vaping Use: Never Used Second Hand Smoke Exposure: No Advance Directives Date on File: 07/25/23 service: No Current occupational status: employed 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 Current occupational exposures/hazards: No Cognitive needs: No Hearing needs: No Vision needs: No Review of Systems Const Denies chills, Denies excessive sweating, Denies fever(s), Denies headache(s) and Denies night sweats Eyes Denies dry eyes, Denies irritation and Denies itchy eyes ENT Reports Normal hearing present, Denies headache(s), Denies nasal congestion, Denies nasal discharge, Denies post nasal drip and Denies sore throat Card Denies chest pain, Denies chest pain at rest, Denies chest pain with activity, Denies claudication, Denies leg edema, Denies dyspnea, Denies dyspnea on exertion, Denies orthopnea and Denies paroxysmal nocturnal dyspnea Resp Denies chest congestion, Denies cough, Denies excessive phlegm production, Denies pain on inspiration, Denies pain with cough, Denies dyspnea, Denies dyspnea on exertion, Denies stridor and Denies wheezing Musc Denies myalgias Neuro Reports Normal hearing present and Denies headache(s) Endo Denies excessive sweating Gary/Lymph Denies lymphadenopathy Aller/Immun Denies itchy eyes, Denies seasonal rhinorrhea and Denies wheezing Physical Exam Vital Signs: Last Vital Signs Pulse 100 08/21/23 14:00 BP 122/64 08/21/23 14:00 Pulse Ox 100 08/21/23 14:00 Oxygen Delivery Method Room Air 08/21/23 14:00 BMI result Body Mass Index 40.8 Const General: cooperative, healthy appearing, comfortable, no acute distress, well developed and alert Nutritional Appearance: obese Orientation/consciousness: patient oriented x3 Limitations: no limitations HEENT Head: Yes normal to inspection, Yes normocephalic and Yes atraumatic Ears: hearing grossly normal bilaterally and external ears normal Eyes General: appearance normal, both eyes and all related structures Eyelids: Yes eyelids normal Sclerae: sclerae normal EOM: EOMs intact bilaterally Neck Neck: Yes normal visual inspection and Yes no lymphadenopathy Lymphatic: no lymphadenopathy noted Chest Chest palpation & inspection: normal inspection of the chest Resp Other: diminished lung sounds, improved after nebulizer, with slight symptomatic improvement Effort & Inspection: normal respiratory effort, able to speak in complete sentences, no audible wheezes, no cough, no stridor, not tachypneic, no tripod positioning and no use of accessory muscles Cardio Jugular venous distension: no JVD Rate: regular rate Rhythm: regular rhythm Skin Other: warm, dry General skin exam: no rashes or lesions noted Neuro General: patient oriented x3 Cranial nerves: Yes Normal hearing present Cognition (Neuro): normal cognition Gait exam (Neuro): Normal gait present Extrem General: Yes normal to inspection, Yes capillary refill normal, Yes no clubbing, cyanosis or edema and Yes no pedal edema Psych Appearance: grossly normal and well kempt Speech and movement: Normal speech and movement present and Clear speech present Affect: normal affect Attitude: cooperative Thought process: Normal thought process present Thought content: Normal thought content present Insight: Good insight present (Psych) Judgement: Good judgement present (Psych) Office Procedures Nebulizer Treatment Nebulizer Treatment [id number] RX initial, or Nebulizer Subsequent Treatment Office Meds ipratropium 0.5 mg-albuterol 3 mg (2.5 mg base)/3 mL nebulization mariton Performing Provider: Ciera Bliss NP Performing Location: [facility] Pulmonology Services-[facility] Administered by: Rhina Falk LPN on 08/21/23 14:45 Dose Route Admin Location Dispensed Lot Number Expiration Date NDC Teacher Private 3 mL inhalation 3 mL [id number] 06/30/25 16819-218-80 [employer] Results Reviewed Results [place]ed[place] [facility] [address] [place] [address] XRay Report Signed Patient: Ewelina Mathis MR#: [id number] : 1965 Acct:[id number] Age/Sex: 58 / F ADM Date: 08/10/23 Loc: HO.HMGCX Attending Dr: Joel Alegria [facility] Ordering Physician: Joel Alegria COACH PROFESSIONAL ATHLETESOCHOA Date of Service: 08/10/23 Procedure(s): XR chest 2V Accession Number(s): [id number] cc: Joel Alegria COACH PROFESSIONAL ATHLETES-~ EXAMINATION: XR CHEST CLINICAL INFORMATION: Pneumonia COMPARISON: 07/24/2023 TECHNIQUE: 2 views of the chest were obtained. FINDINGS: Low lung volumes again noted. Heart and mediastinum and left lung within normal limits. Persistent albeit improved increased markings right upper lobe. Right minor fissure remains elevated. No effusions. Bony structures are intact. XR/XR chest 2V IMPRESSION: Improved, but persistent right upper lobe markings following right upper and middle lobe pneumonia in July. Follow-up to complete resolution recommended. Assessment & Plan Assessment & Plan (1) Dyspnea on exertion: Code(s): R06.09 - Other forms of dyspnea (2) Abnormal chest x-ray: Code(s): R93.89 - Abnormal findings on diagnostic imaging of other specified body structures Plan Ewelina presents for pulmonary evaluation after recent diagnosis of pneumonia which she was treated for but continues with dyspnea on exertion and fatigue. Discussed improvement back to baseline, will likely take a few more weeks. Minimal symptomatic improvement with nebulizer. Will send for PFT to evaluate and chest CT in four weeks, which would be 8 weeks after pneumonia diagnosis. All questions were answered and patient is in agreement of plan. Will follow up to review results or sooner if needed. Orders: Orders AMB Nebulizer Treatment 08/21/23 J18.9 - Pneumonia, unspecified organism, R06.09 - Other forms of dyspnea CT chest wo IV con 4 Weeks R06.09 - Other forms of dyspnea, R93.89 - Abnormal findings on diagnostic imaging of other specified body structures PFT pulmonary function test Today R06.09 - Other forms of dyspnea Coding Level of Care Code New Pt Level 4 (85194) Diagnoses Dyspnea on exertion R06.09 Abnormal chest x-ray R93.89 CPT Codes Nebulizer Treatment - Nebulizer Treatment, initial or subsequent: [id number] RX initial, or Nebulizer Subsequent Treatment ([id number])
== END 2023-08-21 15:16 | disposition home or self-care (01) ==
PROVIDERS: PCP Nurse Practitioner Family; Visit Provider Nurse Practitioner Family
DX: R06.09 Other forms of dyspnea (principal); R93.89 Abnormal findings on diagnostic imaging of other specified body structures
CPT/HCPCS: 99204; 99214

== ENCOUNTER → 2023-08-21 13:56 | Outpatient (BNVA) | payer BC, SELFPAY | PROVIDERS: PCP Nurse Practitioner Family; Visit Provider Nurse Practitioner Family | DX: R06.09 Other forms of dyspnea (principal); R93.89 Abnormal findings on diagnostic imaging of other specified body structures | CPT/HCPCS: 94640 ==

== ENCOUNTER 2023-08-30 09:58 | Outpatient (AMB) | payer BC, SELFPAY ==
--- NOTE | 2023-08-30 10:01 | MHC.OFFVIS ---
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 Accompanied by: Self / Same As Patient Allergies No Known Allergies Allergy (Verified 08/30/23 10:04) Medication List - Last Reconciled 08/30/23 by Ashok Robison MD acetaminophen ER 650 mg PO Q12H PRN aspirin 81 mg PO DAILY atorvastatin 80 mg PO DAILY blood-glucose sensor (Dexcom G6 Sensor device) As directed blood-glucose transmitter (Dexcom G6 Transmitter device) As directed bupropion HCl 300 mg PO DAILY gabapentin 300 mg PO TID hydroxyzine HCl 10 mg PO DAILY PRN hyoscyamine sulfate 0.125 mg PO BID PRN insulin aspart (niacinamide) 100 unit/mL (3 mL) (Fiasp FlexTouch U-100 Insulin) 10 units subcut TID insulin aspart U-100 (Novolog FlexPen U-100 Insulin aspart) 16 units subcut TIDAC insulin glargine (Basaglar KwikPen U-100 Insulin) 50 units subcut QPM lisinopril 5 mg See Protocol PO DAILY pantoprazole 20 mg PO DAILY@0630 tramadol 50 mg PO Q6H PRN trazodone 100 mg PO BEDTIME HPI HPI Comments History of Present Illness Details Ewelina is here for consultation regarding NSTEMI. She has multiple cardiovascular factors including type 2 diabetes, hypertension, dyslipidemia. She states she had initially gestational diabetes in her 20s but then has been a diabetic for the last 15 years or so. Currently on insulin. She recently went to [place] for vacation uTaP. However, she was sick and got admitted to a local hospital. Per discharge summary, treat as DKA, sepsis from strep pneumonia and respiratory failure. In that context, slight troponin elevation thought to be from demand related NSTEMI. After getting discharged from [place] hospital, she came here but she was still sec and it seems she got admitted to [place] with another diagnosis of pneumonia/respiratory failure. At that time, troponins were unremarkable. Overall, she feels okay. No clear anginal-type chest pains. She is walking with a walker. [facility] Medical History Non-ST elevation HI (NSTEMI) Action tremor Chronic headaches GERD (gastroesophageal reflux disease) Hyperlipidemia Depression Pneumonia Sepsis Barretts esophagus Dyslipidemia HTN (hypertension) Charcot's joint of foot Diabetes Surgical History H/O foot surgery Hx of cholecystectomy H/O: hysterectomy Family History (Updated 08/30/23 @ 10:07 by Beatriz Flores) Son Substance use disorder Father Substance use disorder Mother Substance use disorder Family/Other Substance use disorder Maternal Grandfather Heart problem Maternal Uncle Heart problem Paternal Grandmother Heart problem Sister Heart problem Social History Household Members: None Housing: Condominium Do you presently have visiting nurse or other home services: No Alcohol intake: never Patient Tobacco Use Status: Never used Tobacco e-Cigarette/Vaping Use: Never Used Second Hand Smoke Exposure: No Advance Directives Date on File: 07/25/23 service: No Current occupational status: employed 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 Current occupational exposures/hazards: No Cognitive needs: No Hearing needs: No Vision needs: No Review of Systems Const Denies chills, Denies daytime sleepiness, Denies fatigue, Denies fever(s), Denies frequent falls, Denies night sweats, Denies snoring, Denies weakness, Denies weight gain and Denies weight loss Eyes Denies loss of vision ENT Denies dizziness and Denies hearing loss Card Denies chest pain, Denies chest pain with activity, Denies syncope, Denies rapid heart rate, Denies edema, Denies claudication, Denies leg edema, Denies lightheadedness, Denies palpitations, Denies dyspnea and Denies orthopnea Resp Denies cough, Denies excessive phlegm production, Denies dyspnea, Denies snoring and Denies wheezing GI Denies abdominal pain, Denies hematochezia, Denies change in bowel habits, Denies change in stool character, Denies heartburn, Denies nausea and Denies vomiting Denies hematuria, Denies urinary frequency and Denies dysuria Musc Denies arthralgias, Denies muscle weakness, Denies numbness and Denies tingling Skin/Breast Denies nail changes and Denies rash Neuro Denies Abnormal speech present, Denies dizziness, Denies syncope, Denies frequent falls, Denies loss of vision, Denies memory loss, Denies numbness, Denies tingling and Denies weakness Psych Denies depression and Denies memory loss Endo Denies fatigue and Denies palpitations Aller/Immun Denies wheezing Physical Exam Vital Signs: Last Vital Signs Pulse 99 08/30/23 10:03 BP 90/58 L 08/30/23 10:03 BMI result Body Mass Index 40.0 Const General: comfortable and no acute distress Orientation/consciousness: patient oriented x3 HEENT Other: Unremarkable Head: Yes normal to inspection Neck Neck: Yes normal visual inspection Chest Chest palpation & inspection: normal inspection of the chest Resp Auscultation: clear to auscultation bilaterally Cardio Palpation: normal PMI Heart sounds: S1 normal heart sound present, S2 normal heart sound present, no gallops, no murmurs and no rubs GI Palpation (GI): Soft to palpation Back/Spine/Pelvis Other: unremarkable Skin General skin exam: no rashes or lesions noted Neuro General: patient oriented x3 Speech: No Abnormal speech present Extrem General: Yes normal to inspection Psych Mental Status: mental status grossly normal Assessment & Plan Assessment & Plan (1) Non-ST elevation HI (NSTEMI): Code(s): I21.4 - Non-ST elevation (NSTEMI) myocardial infarction (2) Diabetes mellitus with hyperglycemia: Code(s): E11.65 - Type 2 diabetes mellitus with hyperglycemia Plan Longstanding diabetes, recent demand related NSTEMI in setting of infection, many comorbidities. EKG with sinus rhythm at 84/Min; cannot exclude old anterior infarct but could be from body habitus; nonspecific T inversions in the inferior leads; VA prolongation to 200 milliseconds and normal corrected QT. Echocardiogram with LVEF of 65-70% with mild diastolic dysfunction. No significant valvular issues. Ascending aortic size 3.7 cm. Will plan for pharmacological stress perfusion imaging study for further evaluation for any obstructive CAD. Lipids are still high with LDL of 131 mg/dL. She is already on a statin 80 mg daily. If insurance approves, start Repatha or Praluent. Discussed with patient. Orders: Orders CA lexiscan stress w karthik Today I20.9 - Angina pectoris, unspecified, I21.4 - Non-ST elevation (NSTEMI) myocardial infarction NM cardiolite stress test Today I21.4 - Non-ST elevation (NSTEMI) myocardial infarction, R07.2 - Precordial pain Coding Level of Care Code New Pt Level 4 (21470) Diagnoses Non-ST elevation HI (NSTEMI) I21.4 Diabetes mellitus with hyperglycemia E11.65
[2023-08-30 10:03] VITALS: BP 90/58; PULSE 99; BMI 40.0
== END 2023-08-30 10:29 | disposition home or self-care (01) ==
PROVIDERS: PCP Nurse Practitioner Family; Visit Provider Internal Medicine
DX: I21.4 Non-ST elevation (NSTEMI) myocardial infarction (principal); E11.65 Type 2 diabetes mellitus with hyperglycemia
CPT/HCPCS: 99204

== ENCOUNTER → 2023-08-30 09:58 | Outpatient (BNVA) | payer BC, SELFPAY | PROVIDERS: PCP Nurse Practitioner Family; Visit Provider Internal Medicine ==

== ENCOUNTER 2023-08-30 10:55 | Outpatient (REF) | payer BC, SELFPAY ==
[2023-08-30 13:26] LABS: Appearance Urine Clear; Color Urine Yellow; Glucose Urine UA 100 mg/dL (Negative); Leukocyte Esterase Urine Small (1+) (Negative); Nitrite Urine Negative (Negative); Specific Gravity - Urine 1.015 (1.005-1.025); UMIC TRIGGER UACC YES; Urine Blood Negative (Negative); Urine Ketones Negative (Negative); Urine Protein 30 (1+) mg/dL (Neg-Trace)
[2023-08-30 13:30] LABS: Bacteria Urine 1+ (None Seen); Hyaline Casts Urine 0-2 /LPF (0-2); RBC Urine 0-2 /HPF (0-2); Squamous Epithelial Cell Urine 0-2 /HPF (0-2); UACC Culture Trigger YES
== END 2023-08-30 10:56 | disposition home or self-care (01) ==
LOC: HO.HMGCLDS 10:55
PROVIDERS: Absent Provider Internal Medicine; PCP Nurse Practitioner Family; Visit Provider Nurse Practitioner Family
DX: R31.9 Hematuria, unspecified (principal)
CPT/HCPCS: 81001; 87086

== ENCOUNTER 2023-10-12 08:24 | Outpatient (REF) | payer BC, SELFPAY ==
--- NOTE | ~2023-10-12 | CT_ITS ---
EXAMINATION: CT CHEST WITHOUT CONTRAST CLINICAL INFORMATION: Abnormal finding on prior diagnostic imaging. COMPARISON: Chest CT from 07/24/2023. CXR from 07/24/2023 and 08/10/2023. TECHNIQUE: Multidetector volumetric CT imaging of the chest was done. Axial MIP volume rendering provided. Sagittal and coronal reformatted images were obtained. This CT examination was performed using dose optimization techniques as appropriate, variously including the following: *Automated exposure control *Adjustment of mA and/or kV according to patient size (this includes techniques or standardized protocols for targeted exams where dose is matched to indication/reason for exam; i.e. extremities or head) *Use of iterative reconstruction technique Fleischner Society guidelines are followed, if deemed appropriate. DLP: 280 mGy-cm FINDINGS: LOCALIZER IMAGES: Obese body habitus. Lungs are well expanded. LUNGS AND PLEURA: Trachea and central airways are widely patent and normal in caliber. Bronchial piper are mildly thickened. Mild cylindrical bronchiectasis at the right lung apex. Prior chest CT from 07/24/2023 demonstrated patchy consolidation within the right upper lobe. Current images demonstrate minimal patchy hazy opacity in the right upper lobe. No residual consolidation, mass or nodularity in the right upper lobe. Small tree-in-bud nodular opacities are present in the right lower lobe (including anterior and posterior segments of the lower lobe). Interval resolution of a small area of patchy airspace opacity in the anteromedial right lower lobe that was present on the 07/24/2023 exam. No pleural effusion. CARDIOVASCULAR: Cardiac chambers are in the normal size range. No pericardial effusion. Pulmonary arteries are unremarkable. Mild atherosclerosis of the thoracic aorta without aneurysm. Mild atherosclerotic calcification of the proximal left anterior descending coronary artery is present. MEDIASTINUM AND LOWER NECK: No mediastinal mass. The esophagus and thyroid gland are unremarkable. LYMPHATICS: No pathologic sized lymph nodes. UPPER ABDOMEN: Status post cholecystectomy. Large body habitus with mild hepatosplenomegaly. Adrenal glands are unremarkable. SKELETAL AND CHEST WALL: No chest wall mass. Multilevel discovertebral degenerative change of the thoracic spine. No acute or suspicious osseous abnormality. CT/CT chest wo IV con IMPRESSION: * No new or residual consolidation in the right upper lobe. No recurrent pneumonia. * The observation of small tree-in-bud opacities in the right lower lobe requires clinical correlation. This could be sequela of prior aspiration or infectious bronchiolitis. Again, there is overall improvement compared to 07/24/2023. There has been interval resolution of small patchy airspace opacities in the anteromedial right lower lobe compared to 07/24/2023. * No pleural effusion or lymphadenopathy. No interval development of any suspicious lung nodule. No chest CT imaging follow-up is recommended/required.
--- NOTE | 2023-10-12 09:19 | PFT_ITS ---
Indication: Post COVID Spirometry [FEV1 to FVC 79%; FEV1 2.27 L which is 87% predicted; FVC 2.85 L which is 87% predicted no significant response to bronchodilators noted. If anything there was worsening. Maximum voluntary ventilation 94% predicted.] Lung Volumes [Total lung capacity 82% predicted] Diffusion Capacity [DLCO 77% predicted] Comparisons [None] Interpretation [No obstructive nor restrictive ventilatory defects identified. No significant response to bronchodilators noted if anything post bronchodilator numbers were worse. Normal maximum voluntary ventilation. Lung volumes are low normal the patient does have a very mild diffusion impairment. Clinical correlation warranted.] MTDD
== END 2023-10-12 08:25 | disposition home or self-care (01) ==
LOC: HO.CT 08:24
PROVIDERS: PCP Nurse Practitioner Family; Visit Provider Nurse Practitioner Family
DX: R06.09 Other forms of dyspnea (principal); R93.89 Abnormal findings on diagnostic imaging of other specified body structures
CPT/HCPCS: 71250

== ENCOUNTER → 2023-10-12 09:19 | Outpatient (BNV) | payer BC, SELFPAY | PROVIDERS: PCP Nurse Practitioner Family; Visit Provider Hospitalist | DX: R93.89 Abnormal findings on diagnostic imaging of other specified body structures (principal); R06.09 Other forms of dyspnea | CPT/HCPCS: 94060; 94727; 94729 ==

== ENCOUNTER → 2023-10-15 08:04 | Outpatient (REF) | payer BC, SELFPAY ==
--- NOTE | ~2023-10-15 | NM_ITS ---
Lexiscan Myocardial perfusion study Indication: Chest pain, assess for coronary disease and ischemia Technique: The patient was brought in for a Lexiscan perfusion study on 10/15/2023 and was injected 0.4 mg of Lexiscan intravenously. Within a minute of this injection 35 mCi of sestamibi was given intravenously. Images were obtained using the SPECT gamma camera interlaced with the gating device. Images were obtained in supine position. Resting perfusion study was performed on 10/17/2023. Patient was administered 35 mCi of sestamibi intravenously at rest. Images were then obtained in supine position. Images were processed with the software and compared side to side in short axis, horizontal long axis and vertical long axis views. Total DLP 178mGy-cm. Findings: Raw acquisition reviewed. The stress perfusion study showed diminished tracer uptake along the mid to distal anterior wall. There is improvement with CT attenuation correction suggestive of soft tissue attenuation artifact. The apical portion still has some reduced contractility. The gated study shows normal LV systolic function with calculated LVEF of 63%. LV cavity is normal in size. The gated study shows normal wall thickening and contraction of segments. Resting study shows mildly diminished tracer uptake in the distal part of anterior wall. With CT attenuation correction, there is slightly reduced tracer uptake at the apex. Gating at rest reveals normal wall motion with ejection fraction at 59%. The findings are consistent with distal anterior wall/apex with reversible/fixed components. There is improvement with CT attenuation correction not entirely. NM/NM cardiolite stress test Impression: 1. Myocardial perfusion imaging study shows ischemia/infarct pattern in the distal anterior wall/apex. Cannot exclude components of soft tissue attenuation artifact. 2. Gated LVEF is 63% during stress and 59% during rest. 3. Transient ischemic dilatation not present. EKG component of the test reported separately.
--- NOTE | 2023-10-15 08:07 | CA_ITS ---
Acquisition Time: 2023-10-15 08:20:16 Total Exercise Time: 00:02:00 Test Indications: precordial pain Medications: asa insulin lisinopril Protocol: LEXISCAN Max HR: 100 BPM 61% of Pred: 163 BPM Max BP: 110/070 mmHG Max Work Load: 1.0 METS Pharmacological stress test with Lexiscan injection while sitting and slowly kicking her legs, without anginal symptoms, without arrhythmais, with normotensive response to injection, with nondiagnoisitic EKGs. Aminophylline 75mg IVP given to reverse Lexiscan. Nuclear images pending. Test reviewed with Dr. Robison. Referred By: Ashok Robison Overread By: Elissa Herrera
== END ==
LOC: HO.CARD 08:04
PROVIDERS: PCP Nurse Practitioner Family; Visit Provider Internal Medicine
DX: R07.2 Precordial pain (principal); I20.9 Angina pectoris, unspecified; I21.4 Non-ST elevation (NSTEMI) myocardial infarction
CPT/HCPCS: 78452; 93017; A9500; J0280; J2785

== ENCOUNTER → 2023-10-15 08:07 | Outpatient (BNV) | payer BC, SELFPAY | PROVIDERS: PCP Nurse Practitioner Family; Visit Provider Nurse Practitioner | DX: R07.2 Precordial pain (principal) | CPT/HCPCS: 78452; 93016; 93018 ==

== ENCOUNTER 2023-10-23 10:29 | Outpatient (AMB) | payer BC, SELFPAY ==
--- NOTE | 2023-10-23 10:31 | MHC.OFFVIS ---
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 Accompanied by: Self / Same As Patient Allergies No Known Allergies Allergy (Verified 10/31/23 11:31) Medication List - Last Reconciled 10/23/23 by Rhina Falk LPN acetaminophen ER 650 mg PO Q12H PRN aspirin 81 mg PO DAILY atorvastatin 80 mg PO DAILY blood-glucose sensor (Dexcom G6 Sensor device) As directed blood-glucose transmitter (Dexcom G6 Transmitter device) As directed bupropion HCl 300 mg PO DAILY evolocumab (Repatha SureClick) 140 mg subcut Q2W gabapentin 300 mg PO TID hydroxyzine HCl 10 mg PO DAILY PRN hyoscyamine sulfate 0.125 mg PO BID PRN insulin aspart (niacinamide) 100 unit/mL (3 mL) (Fiasp FlexTouch U-100 Insulin) 10 units subcut TID insulin glargine (Basaglar KwikPen U-100 Insulin) 50 units subcut QPM lisinopril 5 mg See Protocol PO DAILY pantoprazole 20 mg PO DAILY@0630 trazodone 100 mg PO BEDTIME HPI f/u pft and ct scan HPI Details Ewelina is a pleasant 58 year old, never smoker, with underlying history of COVID in 2020 requiring 8 day ICU stay and recent hospital admission for sepsis, DKA, pneumonia and SC in August. She continues to report a dry cough and dyspnea on exertion. She denies wheezing and chest congestion. She also reports post nasal drip. She is currently undergoing cardiac evaluation. She reports question of an abnormality from stress test and will be scheduled for a right cardiac cath in November. Today she presents to review results of PFT and chest CT. [facility] Medical History Non-ST elevation SC (NSTEMI) Action tremor Chronic headaches GERD (gastroesophageal reflux disease) Hyperlipidemia Depression Pneumonia Sepsis Barretts esophagus Dyslipidemia HTN (hypertension) Charcot's joint of foot Diabetes Surgical History H/O foot surgery Hx of cholecystectomy H/O: hysterectomy Family History (Updated 08/30/23 @ 10:07 by Beatriz Flores) Son Substance use disorder Father Substance use disorder Mother Substance use disorder Family/Other Substance use disorder Maternal Grandfather Heart problem Maternal Uncle Heart problem Paternal Grandmother Heart problem Sister Heart problem Social History (Updated 10/23/23 @ 10:40 by Rhina Falk LPN) Household Members: None Housing: Condominium Do you presently have visiting nurse or other home services: No Alcohol intake: never Patient Tobacco Use Status: Never used Tobacco e-Cigarette/Vaping Use: Never Used Second Hand Smoke Exposure: No Advance Directives Date on File: 07/25/23 service: No Current occupational status: employed 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 Current occupational exposures/hazards: No Cognitive needs: No Hearing needs: No Vision needs: No Review of Systems Const Denies chills, Denies excessive sweating, Denies fever(s), Denies headache(s) and Denies night sweats Eyes Denies dry eyes, Denies irritation and Denies itchy eyes ENT Reports Normal hearing present, Denies headache(s), Denies nasal congestion, Denies nasal discharge and Denies sore throat Card Denies chest pain, Denies chest pain at rest, Denies chest pain with activity, Denies claudication, Denies leg edema, Denies orthopnea and Denies paroxysmal nocturnal dyspnea Resp Denies chest congestion, Denies excessive phlegm production, Denies pain on inspiration, Denies pain with cough, Denies stridor and Denies wheezing Musc Denies myalgias Neuro Reports Normal hearing present and Denies headache(s) Endo Denies excessive sweating Gary/Lymph Denies lymphadenopathy Aller/Immun Denies itchy eyes, Denies seasonal rhinorrhea and Denies wheezing Physical Exam Vital Signs: Last Vital Signs Pulse 101 H 10/23/23 10:33 BP 114/70 10/23/23 10:33 Pulse Ox 100 10/23/23 10:33 Oxygen Delivery Method Room Air 10/23/23 10:33 BMI result Body Mass Index 43.6 Const General: cooperative, healthy appearing, comfortable, no acute distress, well developed and alert Nutritional Appearance: obese Orientation/consciousness: patient oriented x3 Limitations: no limitations HEENT Head: Yes normal to inspection, Yes normocephalic and Yes atraumatic Ears: hearing grossly normal bilaterally and external ears normal Eyes General: appearance normal, both eyes and all related structures Eyelids: Yes eyelids normal Sclerae: sclerae normal EOM: EOMs intact bilaterally Neck Neck: Yes normal visual inspection and Yes no lymphadenopathy Lymphatic: no lymphadenopathy noted Chest Chest palpation & inspection: normal inspection of the chest Resp Effort & Inspection: normal respiratory effort, able to speak in complete sentences, no audible wheezes, no cough, no stridor, not tachypneic, no tripod positioning and no use of accessory muscles Cardio Jugular venous distension: no JVD Rate: regular rate Rhythm: regular rhythm Skin Other: warm, dry General skin exam: no rashes or lesions noted Neuro General: patient oriented x3 Cranial nerves: Yes Normal hearing present Cognition (Neuro): normal cognition Gait exam (Neuro): Normal gait present Extrem General: Yes normal to inspection, Yes capillary refill normal, Yes no clubbing, cyanosis or edema and Yes no pedal edema Psych Appearance: grossly normal and well kempt Speech and movement: Normal speech and movement present and Clear speech present Affect: normal affect Attitude: cooperative Thought process: Normal thought process present Thought content: Normal thought content present Insight: Good insight present (Psych) Judgement: Good judgement present (Psych) Results Reviewed Results Reviewed: [address] [address] [address] Scan Report Signed Patient: Ewelina Mathis MR#: [id number] : 1965 Acct:[id number] Age/Sex: 58 / F ADM Date: 10/12/23 Loc: HO.CT Attending Dr: Ciera Bliss NP Ordering Physician: Ciera Bliss NP Date of Service: 10/12/23 Procedure(s): CT chest wo IV con Accession Number(s): [id number] cc: Joel Alegria-; Ciera Bliss NP~ EXAMINATION: CT CHEST WITHOUT CONTRAST CLINICAL INFORMATION: Abnormal finding on prior diagnostic imaging. COMPARISON: Chest CT from 07/24/2023. CXR from 07/24/2023 and 08/10/2023. TECHNIQUE: Multidetector volumetric CT imaging of the chest was done. Axial MIP volume rendering provided. Sagittal and coronal reformatted images were obtained. This CT examination was performed using dose optimization techniques as appropriate, variously including the following: *Automated exposure control *Adjustment of mA and/or kV according to patient size (this includes techniques or standardized protocols for targeted exams where dose is matched to indication/reason for exam; i.e. extremities or head) *Use of iterative reconstruction technique Fleischner Society guidelines are followed, if deemed appropriate. DLP: 280 mGy-cm FINDINGS: LOCALIZER IMAGES: Obese body habitus. Lungs are well expanded. LUNGS AND PLEURA: Trachea and central airways are widely patent and normal in caliber. Bronchial piper are mildly thickened. Mild cylindrical bronchiectasis at the right lung apex. Prior chest CT from 07/24/2023 demonstrated patchy consolidation within the right upper lobe. Current images demonstrate minimal patchy hazy opacity in the right upper lobe. No residual consolidation, mass or nodularity in the right upper lobe. Small tree-in-bud nodular opacities are present in the right lower lobe (including anterior and posterior segments of the lower lobe). Interval resolution of a small area of patchy airspace opacity in the anteromedial right lower lobe that was present on the 07/24/2023 exam. No pleural effusion. CARDIOVASCULAR: Cardiac chambers are in the normal size range. No pericardial effusion. Pulmonary arteries are unremarkable. Mild atherosclerosis of the thoracic aorta without aneurysm. Mild atherosclerotic calcification of the proximal left anterior descending coronary artery is present. MEDIASTINUM AND LOWER NECK: No mediastinal mass. The esophagus and thyroid gland are unremarkable. LYMPHATICS: No pathologic sized lymph nodes. UPPER ABDOMEN: Status post cholecystectomy. Large body habitus with mild hepatosplenomegaly. Adrenal glands are unremarkable. SKELETAL AND CHEST WALL: No chest wall mass. Multilevel discovertebral degenerative change of the thoracic spine. No acute or suspicious osseous abnormality. CT/CT chest wo IV con IMPRESSION: * No new or residual consolidation in the right upper lobe. No recurrent pneumonia. * The observation of small tree-in-bud opacities in the right lower lobe requires clinical correlation. This could be sequela of prior aspiration or infectious bronchiolitis. Again, there is overall improvement compared to 07/24/2023. There has been interval resolution of small patchy airspace opacities in the anteromedial right lower lobe compared to 07/24/2023. * No pleural effusion or lymphadenopathy. No interval development of any suspicious lung nodule. No chest CT imaging follow-up is recommended/required. Dictated By: Simone Rivera MD Signed By: <Electronically signed by Simone Rivera MD in OV> 10/15/23 1525 Assessment & Plan Assessment & Plan (1) Dyspnea on exertion: Code(s): R06.09 - Other forms of dyspnea (2) Abnormal chest x-ray: Code(s): R93.89 - Abnormal findings on diagnostic imaging of other specified body structures (3) Bronchiectasis: Code(s): J47.9 - Bronchiectasis, uncomplicated Plan Reviewed chest CT which revealed improvements compared to CT from 07/23. There has been interval resolution of small patchy airspace opacities in the anteromedial right lower lobe. Reviewed PFT which did not reveal obstructive or restrictive defect. There was no significant response to bronchodilator. TLC 82% and DLCO 77%. Dyspnea is likely related to underlying cardiac etiologies however she would like to empirically trial pulmicort for continued dyspnea and ipratropium nasal spray for post nasal drip. All questions were answered and patient is in agreement of plan. Will follow up in three months or sooner if needed. Medications: New ipratropium bromide administer into each nostril 2 sprays intranasal BID 30 mL 1RF budesonide 90 mcg/actuation (Pulmicort Flexhaler) 1 inh inhalation BID 1 ea 3RF Coding Level of Care Code Est Pt Level 4 (33786) Diagnoses Dyspnea on exertion R06.09 Abnormal chest x-ray R93.89 Bronchiectasis J47.9
[2023-10-23 10:33] VITALS: BP 114/70; PULSE 101; O2SAT 100; BMI 43.6
== END 2023-10-23 11:31 | disposition home or self-care (01) ==
PROVIDERS: PCP Nurse Practitioner Family; Visit Provider Nurse Practitioner Family
DX: R06.09 Other forms of dyspnea (principal); R93.89 Abnormal findings on diagnostic imaging of other specified body structures; J47.9 Bronchiectasis, uncomplicated
CPT/HCPCS: 99214

== ENCOUNTER → 2023-10-23 10:29 | Outpatient (BNVA) | payer BC, SELFPAY | PROVIDERS: PCP Nurse Practitioner Family; Visit Provider Nurse Practitioner Family ==

== ENCOUNTER 2023-10-31 11:20 | Outpatient (AMB) | payer BC, SELFPAY ==
--- NOTE | 2023-10-31 11:27 | MHC.PC.OV ---
Vital Signs 10/31/23 11:29 Height 5 ft 5 in Weight 261 lb BMI 43.4 BP 138/80 Blood Pressure Location Rt brachial Position Sitting Pulse 97 Pulse Source Pulse Oximeter Pulse Oximetry (%) 99 Oxygen Delivery Method Room Air Intake Visit Reasons: 2 month follow up Intake Note: Pt is here to follow up for HTN and Lipids Allergies No Known Allergies Allergy (Verified 10/31/23 11:31) Tobacco use date assessed: 10/31/23 Dental Screening Dental Screen Date: 10/31/23 Did you have a dental visit in the last 12 months?: Yes Did you have a dental problem in the last 6 months where you did not have access to dental care?: No Was dental information given to patient?: Patient has dentist HPI 2 month follow up HPI Details Post-COVID: Pt reports some ongoing shortness of breath with exertion and cough. She does report that her breathing is improving. She is following up with pulmonology. She does not have chest pain with exertion. Pt is able to walk without use of walker. Pt is following up with cardiology. She has an upcoming cardiac cath. Pt is a diabetic, sees endo. Denies chest pain, shortness of breath at rest, and dizziness. [facility] Medical History Non-ST elevation NE (NSTEMI) Action tremor Chronic headaches GERD (gastroesophageal reflux disease) Hyperlipidemia Depression Pneumonia Sepsis Barretts esophagus Dyslipidemia HTN (hypertension) Charcot's joint of foot Diabetes Surgical History H/O foot surgery Hx of cholecystectomy H/O: hysterectomy Family History (Updated 08/30/23 @ 10:07 by Beatriz Flores) Son Substance use disorder Father Substance use disorder Mother Substance use disorder Family/Other Substance use disorder Maternal Grandfather Heart problem Maternal Uncle Heart problem Paternal Grandmother Heart problem Sister Heart problem Social History (Updated 10/23/23 @ 10:40 by Rhina Falk LPN) Household Members: None Housing: Condominium Do you presently have visiting nurse or other home services: No Alcohol intake: never Patient Tobacco Use Status: Never used Tobacco e-Cigarette/Vaping Use: Never Used Second Hand Smoke Exposure: No Advance Directives Date on File: 07/25/23 service: No Current occupational status: employed 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 1. Little interest or pleasure in doing things: several days 2. Feeling down, depressed, or hopeless: several days 3. Trouble falling or staying asleep, or sleeping too much: several days 4. Feeling tired or having little energy: several days 5. Poor appetite or overeating: several days 6. Feeling bad about yourself - or that you are a failure or have let yourself or your family down: not at all 7. Trouble concentrating on things, such as reading the newspaper or watching television: not at all 8. Moving or speaking so slowly that other people could have noticed. Or the opposite - being so fidgety or restless that you have been moving around a lot more than usual: several days 9. Thoughts that you would be better off or of hurting yourself in some way: not at all Total score: 6 Source: Developed by Drs. Cruz Gilbert, Jenna Acosta, Rick Cohen and colleagues, with an educational gabriel from [employer]. Thrive Questionnaire Date Thrive assessed: 10/31/23 I am a: Patient What is your living situation today?: I have a steady place to live Within the past 12 months, did the food you bought not last and you didn't have the money to get more?: Never true Within the past 12 months, did you worry whether your food would run out before you got money to buy more?: Never true Do you have trouble paying for medicines?: No Do you have trouble getting transportation to medical appointments?: No Do you have trouble paying your heating and electricity bill?: No Do you have trouble taking care of your child, family member or friend?: No Do you have trouble with day-to-day activities such as bathing, preparing meals, shopping, managing finances, etc.?: Yes Are you currently unemployed and looking for a job?: No Are you interested in more education?: No Please select the resources that you would like help with: None THRIVE Score: 0 AUDIT C Alcohol Use Questionnaire (AUDIT-C) 1. How often do you have a drink containing alcohol?: Monthly or less 2. How many drinks containing alcohol do you have on a typical day when you are drinking?: 1 or 2 3. How often do you have six or more drinks on one occasion?: Never Total Score: 1 MINH-7 AMB Questionnaire MINH-7 Date MINH - 7 assessed: 10/31/23 Feeling nervous, anxious, or on edge: 1 = Several days Not being able to stop or control worryin = Nearly every day Worrying too much about different things: 2 = More than half the days Trouble relaxin = Several days Being so restless that it is hard to sit still: 3 = Nearly every day Becoming easily annoyed or irritable: 1 = Several days Feeling afraid as if something awful might happen: 2 = More than half the days Total MINH-7 score (0-4 normal; 5-9 mild; 10-14 moderate; 15-21 severe): 13 Source: Developed by Drs. Cruz Gilbert, Jenna Acosta, Rick Cohen and colleagues, with an educational gabriel from [employer]. Review of Systems Const Reports as per HPI Physical exam (Primary Care) Vital Signs: Last Vital Signs Pulse 97 10/31/23 11:29 BP 138/80 10/31/23 11:29 Pulse Ox 99 10/31/23 11:29 Oxygen Delivery Method Room Air 10/31/23 11:29 BMI result Body Mass Index 43.4 Tobacco/Smoking Status: Tobacco use Status Tobacco use date assessed 10/31/23 10/31/23 11:35 Patient Tobacco Use Status Never used Tobacco 10/31/23 11:27 e-Cigarette/Vaping Use Never Used 10/31/23 11:27 PHQ-9: PHQ-9 Score PHQ-9: Total score 6 10/31/23 11:37 Thrive Assessment: Date of Thrive Assessment Date Thrive assessed 10/31/23 10/31/23 11:37 Const General: cooperative Nutritional Appearance: obese morbidly obese Orientation/consciousness: patient oriented x3 Resp Effort & Inspection: normal respiratory effort Auscultation: clear to auscultation bilaterally Cardio Other: difficult to auscultate due to body habitus Rate: regular rate Rhythm: regular rhythm Heart sounds: S1 normal heart sound present and S2 normal heart sound present Neuro General: patient oriented x3 Psych Appearance: grossly normal Mental Status: mental status grossly normal Speech and movement: Normal speech and movement present Affect: normal affect Attitude: cooperative Thought process: Normal thought process present Thought content: Normal thought content present Insight: Good insight present (Psych) Judgement: Good judgement present (Psych) Assessment and Plan Assessment & Plan (1) Shortness of breath: Code(s): R06.02 - Shortness of breath (2) Non-ST elevation NE (NSTEMI): Code(s): I21.4 - Non-ST elevation (NSTEMI) myocardial infarction Plan: follows up with cardiology (3) Abnormal stress test: Code(s): R94.39 - Abnormal result of other cardiovascular function study (4) Post-COVID syndrome: Code(s): U09.9 - Post COVID-19 condition, unspecified Plan: symptoms are getting better, follows up with pulmonary Plan The patient agreed to the use of a medical record administrator for this encounter. Scribed for DARVIN Saleh by Geena Baxter medical record administrator, on 10/31/2023 at 11:50 EST. Coding Level of Care Code Est Pt Level 3 (70232) Diagnoses Shortness of breath R06.02 Non-ST elevation NE (NSTEMI) I21.4 Abnormal stress test R94.39 Post-COVID syndrome U09.9
[2023-10-31 11:29] VITALS: BP 138/80; PULSE 97; O2SAT 99; BMI 43.4
== END 2023-10-31 12:10 | disposition home or self-care (01) ==
PROVIDERS: PCP Nurse Practitioner Family; Visit Provider Nurse Practitioner Family
DX: R06.02 Shortness of breath (principal); I25.2 Old myocardial infarction; R94.39 Abnormal result of other cardiovascular function study; U09.9 Post COVID-19 condition, unspecified
CPT/HCPCS: 99213

== ENCOUNTER → 2023-11-06 23:59 | Outpatient (BNV) | payer BC, SELFPAY | PROVIDERS: PCP Nurse Practitioner Family; Visit Provider Internal Medicine Cardiovascular Disease | DX: I20.89 Other forms of angina pectoris (principal) | CPT/HCPCS: 93458; 99152 ==

== ENCOUNTER 2023-11-22 08:14 | Outpatient (REF) | payer BC, SELFPAY ==
[2023-11-22 08:59] LABS: MANUAL DIFF FLAG NO
[2023-11-22 09:35] LABS: Basophils Absolute Auto 0.1 X10*3/uL (0.0-0.2); Basophils Percent Auto 0.8 % (0-2); Eosinophils Absolute Auto 0.7 X10*3/uL (0.0-0.4); Eosinophils Percent Auto 9.1 % (0-4); Hemoglobin 11.7 g/dl (12.0-16.0); Imm Gran Abs Auto 0.02 X10*3/uL (0.00-0.03); Imm Gran Pct Auto 0.3 % (0.0-0.4); Lymphocytes Percent Auto 27.7 % (20-40); Mean Corpuscular HGB Conc 32.5 g/dl (31.0-35.0); Mean Corpuscular Hemoglobin 27.5 pg (27.0-33.0); Mean Corpuscular Volume 84.7 fL (80.0-98.0); Mean Platelet Volume 9.1 fL (9.4-12.3); Monocytes Absolute Auto 0.5 X10*3/uL (0.1-1.2); Monocytes Percent Auto 6.8 % (2-11); Neutrophils Percent Auto 55.3 % (45-73); Platelet Count 253 X10*3/uL (160-400); Red Blood Count 4.25 X10*6/uL (4.20-5.50); Red Cell Distribution Width 13.5 % (11.0-16.0); White Blood Count 7.2 X10*3/uL (4.8-10.8)
[2023-11-22 09:51] LABS: INTERNATIONAL NORM RATIO 0.9 (0.9-1.1); Prothrombin Time 11.2 SEC (11.1-13.3)
[2023-11-22 10:10] LABS: Anion Gap 13 (12-20); Blood Urea Nitrogen 24 mg/dL (9-16); Calcium 9.6 mg/dL (8.4-10.2); Carbon Dioxide 27 mmol/L (22-29); Chloride 107 mmol/L (96-108); Cholesterol 133 mg/dL (<200); Estimated Glomerular Filt Rate 40; Glucose Random 118 mg/dL (60-115); HDL Cholesterol 45 mg/dL (>40); LDL Cholesterol Calculated 69 mg/dL (<100); Potassium 5.2 mmol/L (3.3-5.1); Sodium 142 mmol/L (135-145); Triglycerides 96 mg/dL (<150)
[2023-11-23 20:13] LABS: LDL Cholesterol Direct 63 mg/dL (<100)
== END 2023-11-22 08:15 | disposition home or self-care (01) ==
LOC: HO.LAB 08:14
PROVIDERS: PCP Nurse Practitioner Family; Visit Provider Internal Medicine
DX: R94.39 Abnormal result of other cardiovascular function study (principal); E78.2 Mixed hyperlipidemia; I21.4 Non-ST elevation (NSTEMI) myocardial infarction; I10 Essential (primary) hypertension; I25.10 Atherosclerotic heart disease of native coronary artery without angina pectoris; E11.65 Type 2 diabetes mellitus with hyperglycemia; Z79.4 Long term (current) use of insulin; Z79.899 Other long term (current) drug therapy
CPT/HCPCS: 36415; 80048; 80061; 83721; 85025; 85610

== ENCOUNTER 2023-11-22 08:14 | Outpatient (AMB) | payer BC, SELFPAY ==
--- NOTE | 2023-11-22 08:15 | A.OFFVIS_ITS ---
Intake Vital Signs 11/22/23 08:19 Height 5 ft 5 in Weight 263 lb BMI 43.8 BP 130/82 Blood Pressure Location Lt brachial Position Sitting Pulse 99 Pulse Source Pulse Oximeter Pulse Oximetry (%) 99 Oxygen Delivery Method Room Air Intake Visit Reasons: Follow up post cardiac cath Intake Note: Pt presents to the office today for a follow up visit Allergies No Known Allergies Allergy (Verified 11/22/23 08:20) Medication List - Last Reconciled 11/22/23 by Ashok Robison MD acetaminophen ER 650 mg PO Q12H PRN aspirin 81 mg PO DAILY atorvastatin 80 mg PO DAILY blood-glucose sensor (Dexcom G6 Sensor device) As directed blood-glucose transmitter (Dexcom G6 Transmitter device) As directed budesonide 90 mcg/actuation (Pulmicort Flexhaler) 1 inh inhalation BID bupropion HCl 300 mg PO DAILY evolocumab (Repatha SureClick) 140 mg subcut Q2W gabapentin 300 mg PO TID hydroxyzine HCl 10 mg PO DAILY PRN hyoscyamine sulfate 0.125 mg PO BID PRN insulin aspart (niacinamide) 100 unit/mL (3 mL) (Fiasp FlexTouch U-100 Insulin) 10 units subcut TID insulin glargine (Basaglar KwikPen U-100 Insulin) 50 units subcut QPM ipratropium bromide 2 sprays intranasal BID lisinopril 5 mg See Protocol PO DAILY pantoprazole 20 mg PO DAILY@0630 tirzepatide (Mounjaro) 2.5 mg subcut QWEEK trazodone 100 mg PO BEDTIME HPI HPI Comments History of Present Illness Details Ewelina returns for follow-up. Recently seen in consultation regarding NSTEMI. She has multiple cardiovascular factors including type 2 diabetes, hypertension, dyslipidemia. She states she had initially gestational diabetes in her 20s but then has been a diabetic for the last 15 years or so. Currently on insulin. She recently went to [place] for vacation in [place] [employer]. However, she was sick and got admitted to a local hospital. Per discharge summary, treat as DKA, sepsis from strep pneumonia and respiratory failure. In that context, slight troponin elevation thought to be from demand related NSTEMI. After getting discharged from [place] hospital, she came here but she was still sick and it seems she got admitted to [place] with another diagnosis of pneumonia/respiratory failure. At that time, troponins were unremarkable. Overall, she feels okay. No clear anginal-type chest pains. She is walking with a walker. [facility] Medical History (Updated 11/22/23 @ 08:51 by Ashok Robison MD) Atherosclerotic cardiovascular disease Non-ST elevation NE (NSTEMI) Action tremor Chronic headaches GERD (gastroesophageal reflux disease) Hyperlipidemia Depression Pneumonia Sepsis Barretts esophagus Dyslipidemia HTN (hypertension) Charcot's joint of foot Diabetes Surgical History H/O foot surgery Hx of cholecystectomy H/O: hysterectomy Family History Son Substance use disorder Father Substance use disorder Mother Substance use disorder Family/Other Substance use disorder Maternal Grandfather Heart problem Maternal Uncle Heart problem Paternal Grandmother Heart problem Sister Heart problem Social History Household Members: None Housing: Condominium Do you presently have visiting nurse or other home services: No Alcohol intake: never Patient Tobacco Use Status: Never used Tobacco e-Cigarette/Vaping Use: Never Used Second Hand Smoke Exposure: No Advance Directives Date on File: 07/25/23 service: No Current occupational status: employed 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 Current occupational exposures/hazards: No Cognitive needs: No Hearing needs: No Vision needs: No Review of Systems Const All systems reviewed & are unremarkable except as noted in HPI and below Reports as per HPI and Reports no additional complaints Eyes Reports as per HPI and Denies no additional complaints ENT Denies no additional complaints and Reports as per HPI Card Denies as per HPI, Denies no additional complaints, Denies acrocyanosis, Denies chest pain, Denies chest pain at rest, Denies chest pain with activity, Denies diaphoresis, Denies syncope, Denies rapid heart rate, Denies pedal edema, Denies edema, Denies irregular heart rhythm, Denies claudication, Denies leg ulcers, Denies leg edema, Denies lightheadedness, Denies radiating jaw, neck or arm pain, Denies palpitations, Denies dyspnea, Denies dyspnea on exertion, Denies orthopnea, Denies paroxysmal nocturnal dyspnea, Denies slow heart rate and Denies other Resp Denies dyspnea and Denies dyspnea on exertion GI Reports as per HPI and Denies no additional complaints Reports as per HPI Musc Reports no additional complaints and Reports as per HPI Skin/Breast Reports system reviewed and no additional complaints, except as documented Neuro Denies syncope Psych Reports no additional complaints and Reports as per HPI Endo Denies palpitations Gary/Lymph Reports no additional complaints and Reports as per HPI Aller/Immun Reports no additional complaints and Reports as per HPI Physical Exam Vital Signs: Last Vital Signs Pulse 99 11/22/23 08:19 BP 130/82 11/22/23 08:19 Pulse Ox 99 11/22/23 08:19 Oxygen Delivery Method Room Air 11/22/23 08:19 BMI result Body Mass Index 43.8 Const General: comfortable and no acute distress Orientation/consciousness: patient oriented x3 HEENT Other: Unremarkable Head: Yes normal to inspection Neck Neck: Yes normal visual inspection Chest Chest palpation & inspection: normal inspection of the chest Resp Auscultation: clear to auscultation bilaterally Cardio Palpation: normal PMI Heart sounds: S1 normal heart sound present, S2 normal heart sound present, no gallops, no murmurs and no rubs GI Palpation (GI): Soft to palpation Back/Spine/Pelvis Other: unremarkable Skin General skin exam: no rashes or lesions noted Neuro General: patient oriented x3 Extrem General: Yes normal to inspection Psych Mental Status: mental status grossly normal Assessment & Plan Assessment & Plan (1) Non-ST elevation NE (NSTEMI): Code(s): I21.4 - Non-ST elevation (NSTEMI) myocardial infarction (2) Atherosclerotic cardiovascular disease: Code(s): I25.10 - Atherosclerotic heart disease of [place] coronary artery without angina pectoris (3) Diabetes mellitus with hyperglycemia: Code(s): E11.65 - Type 2 diabetes mellitus with hyperglycemia Plan Longstanding diabetes, recent demand related NSTEMI in setting of infection, many comorbidities. EKG with sinus rhythm at 84/Min; cannot exclude old anterior infarct but could be from body habitus; nonspecific T inversions in the inferior leads; DC prolongation to 200 milliseconds and normal corrected QT. Echocardiogram with LVEF of 65-70% with mild diastolic dysfunction. No significant valvular issues. Ascending aortic size 3.7 cm. Myocardial perfusion imaging study shows ischemia/infarct pattern in the distal anterior wall/apex but could not exclude soft tissue attenuation artifact. Cardiac catheterization with mild disease in the LAD and minimal irregularities in circumflex but otherwise normal coronaries. Overall, mild CAD, diabetes and various risk factors. Ideally, weight loss and aggressive risk factor modification. Lipids were still high on high-dose statins and hence she is on Repatha. Recheck labs. Follow-up in 6 months. She will call with any interim concerns. Orders: Orders Lipid Panel Today E78.5 - Hyperlipidemia, unspecified LDL Cholesterol Direct Today E78.2 - Mixed hyperlipidemia, E78.5 - Hyperlipidemia, unspecified Coding Level of Care Code Est Pt Level 4 (88172) Diagnoses Non-ST elevation NE (NSTEMI) I21.4 Atherosclerotic cardiovascular disease I25.10 Diabetes mellitus with hyperglycemia E11.65
[2023-11-22 08:19] VITALS: BP 130/82; PULSE 99; O2SAT 99; BMI 43.8
== END 2023-11-22 08:34 | disposition home or self-care (01) ==
PROVIDERS: PCP Nurse Practitioner Family; Visit Provider Internal Medicine
DX: I21.4 Non-ST elevation (NSTEMI) myocardial infarction (principal); I25.10 Atherosclerotic heart disease of native coronary artery without angina pectoris; E11.65 Type 2 diabetes mellitus with hyperglycemia
CPT/HCPCS: 99214

== ENCOUNTER 2023-11-28 12:33 | Outpatient (REF) | payer BC, SELFPAY ==
[2023-11-28 14:35] LABS: Alanine Aminotransferase 20 U/L (0-31); Albumin Level 3.9 g/dL (3.5-5.0); Alkaline Phosphatase 142 U/L (39-117); Anion Gap 12 (12-20); Aspartate Amino Transferase 17 U/L (5-31); Bilirubin Total 0.4 mg/dL (0.0-1.0); Blood Urea Nitrogen 28 mg/dL (9-16); Calcium 9.5 mg/dL (8.4-10.2); Carbon Dioxide 25 mmol/L (22-29); Chloride 109 mmol/L (96-108); Estimated Glomerular Filt Rate 40; Glucose Random 72 mg/dL (60-115); Potassium 4.8 mmol/L (3.3-5.1); Sodium 141 mmol/L (135-145); Total Protein 7.3 g/dL (6.5-8.0)
== END 2023-11-28 12:34 | disposition home or self-care (01) ==
LOC: HO.HMGCLDS 12:33
PROVIDERS: PCP Nurse Practitioner Family; Visit Provider Nurse Practitioner Family
DX: E87.5 Hyperkalemia (principal)
CPT/HCPCS: 36415; 80053

== ENCOUNTER 2023-11-30 08:31 | Outpatient (REF) | payer BC, SELFPAY ==
[2023-11-30 11:43] LABS: Gamma Glutamyl Transpeptidase 62 U/L (7-33)
[2023-12-04 17:58] LABS: Alk.Phos Iso. Macrohepatic 0 % (<=0); Alk.Phos Isoenzymes Bone 30 % (28-66); Alk.Phos Isoenzymes Intest 5 % (1-24); Alk.Phos Isoenzymes Liver 65 % (25-69); Alk.Phos Isoenzymes Placental 0 % (<=0); Alk.Phos Isoenzymes Total 126 U/L (37-153)
== END 2023-11-30 08:32 | disposition home or self-care (01) ==
LOC: HO.HMGCLDS 08:31
PROVIDERS: PCP Nurse Practitioner Family; Visit Provider Nurse Practitioner Family
DX: R74.8 Abnormal levels of other serum enzymes (principal)
CPT/HCPCS: 36415; 82977; 84080

== ENCOUNTER 2023-12-04 09:00 | Outpatient (AMB) | payer BC, SELFPAY ==
--- NOTE | 2023-12-04 09:02 | MHC.OFFVIS ---
Intake Vital Signs 12/04/23 09:04 Height 5 ft 5 in Weight 251 lb BMI 41.8 BP 126/72 Blood Pressure Location Rt brachial Position Sitting Pulse 91 Pulse Source Pulse Oximeter Pulse Oximetry (%) 98 Oxygen Delivery Method Room Air Intake Visit Reasons: Ongoing cough Psychological Aide Required: No Senior Web Developer: Senior Web Developer offered & declined Accompanied by: Self / Same As Patient Allergies No Known Allergies Allergy (Verified 12/04/23 09:08) Medication List - Last Reconciled 12/04/23 by Rhina Falk LPN acetaminophen ER 650 mg PO Q12H PRN aspirin 81 mg PO DAILY atorvastatin 80 mg PO DAILY blood-glucose sensor (Dexcom G6 Sensor device) As directed blood-glucose transmitter (Dexcom G6 Transmitter device) As directed budesonide 90 mcg/actuation (Pulmicort Flexhaler) 1 inh inhalation BID bupropion HCl 300 mg PO DAILY evolocumab (Repatha SureClick) 140 mg subcut Q2W gabapentin 300 mg PO TID hydroxyzine HCl 10 mg PO DAILY PRN hyoscyamine sulfate 0.125 mg PO BID PRN insulin aspart (niacinamide) 100 unit/mL (3 mL) (Fiasp FlexTouch U-100 Insulin) 10 units subcut TID insulin glargine (Basaglar KwikPen U-100 Insulin) 50 units subcut QPM ipratropium bromide 2 sprays intranasal BID lisinopril 2.5 mg See Protocol PO DAILY pantoprazole 20 mg PO DAILY@0630 tirzepatide (Mounjaro) 2.5 mg subcut QWEEK trazodone 100 mg PO BEDTIME HPI Ongoing cough HPI Details Ewelina is a pleasant 58 year old, never smoker, with underlying history of COVID in 2020 requiring 8 day ICU stay and recent hospital admission for sepsis, DKA, pneumonia, NM in August and bronchiectasis. She was initially referred for dry cough and dyspnea on exertion as well as post nasal drip. She was started on pulmicort and ipratropium at the last visit and reports significant improvement in cough. She continues to report mild dyspnea. Today she reports for an acute visit as she recently developed persistent dry cough. She denies fever, chills or sick contacts. She denies wheezing or chest tightness. Of note, she is currently undergoing cardiac evaluation, prior abnormality on stress test and was scheduled for a right cardiac cath in November. Cardiac catheterization revealed mild disease in the LAD and minimal irregularities in circumflex but otherwise normal coronaries. [facility] Medical History (Updated 12/01/23 @ 11:19 by Joel Alegria [facility]) Elevated serum GGT level Atherosclerotic cardiovascular disease Non-ST elevation NM (NSTEMI) Action tremor Chronic headaches GERD (gastroesophageal reflux disease) Hyperlipidemia Depression Pneumonia Sepsis Barretts esophagus Dyslipidemia HTN (hypertension) Charcot's joint of foot Diabetes Surgical History H/O foot surgery Hx of cholecystectomy H/O: hysterectomy Family History Son Substance use disorder Father Substance use disorder Mother Substance use disorder Family/Other Substance use disorder Maternal Grandfather Heart problem Maternal Uncle Heart problem Paternal Grandmother Heart problem Sister Heart problem Social History (Updated 12/04/23 @ 09:10 by hRina Falk LPN) Household Members: None Housing: Condominium Do you presently have visiting nurse or other home services: No Alcohol intake: never Patient Tobacco Use Status: Never used Tobacco Smoked in Last 30 Days: No e-Cigarette/Vaping Use: Never Used Second Hand Smoke Exposure: No Advance Directives Date on File: 07/25/23 service: No Current occupational status: employed 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 Current occupational exposures/hazards: No Cognitive needs: No Hearing needs: No Vision needs: No Review of Systems Const Denies chills, Denies excessive sweating, Denies fever(s), Denies headache(s) and Denies night sweats Eyes Denies dry eyes, Denies irritation and Denies itchy eyes ENT Reports Normal hearing present, Denies headache(s), Denies nasal congestion, Denies nasal discharge and Denies sore throat Card Denies chest pain, Denies chest pain at rest, Denies chest pain with activity, Denies claudication, Denies leg edema, Reports dyspnea on exertion, Denies orthopnea and Denies paroxysmal nocturnal dyspnea Resp Denies chest congestion, Reports cough, Denies excessive phlegm production, Denies pain on inspiration, Denies pain with cough, Reports dyspnea on exertion, Denies stridor and Denies wheezing Musc Denies myalgias Neuro Reports Normal hearing present and Denies headache(s) Endo Denies excessive sweating Gary/Lymph Denies lymphadenopathy Aller/Immun Denies itchy eyes, Denies seasonal rhinorrhea and Denies wheezing Physical Exam Vital Signs: Last Vital Signs Pulse 91 12/04/23 09:04 BP 126/72 12/04/23 09:04 Pulse Ox 98 12/04/23 09:04 Oxygen Delivery Method Room Air 12/04/23 09:04 BMI result Body Mass Index 41.8 Const General: cooperative, healthy appearing, comfortable, no acute distress, well developed and alert Nutritional Appearance: obese Orientation/consciousness: patient oriented x3 Limitations: no limitations HEENT Head: Yes normal to inspection, Yes normocephalic and Yes atraumatic Ears: hearing grossly normal bilaterally and external ears normal Eyes General: appearance normal, both eyes and all related structures Eyelids: Yes eyelids normal Sclerae: sclerae normal EOM: EOMs intact bilaterally Neck Neck: Yes normal visual inspection and Yes no lymphadenopathy Lymphatic: no lymphadenopathy noted Chest Chest palpation & inspection: normal inspection of the chest Resp Other: postexhalation cough, improved with duoneb Effort & Inspection: normal respiratory effort, able to speak in complete sentences, no audible wheezes, Actively coughing (resolved after duoneb), no stridor, not tachypneic, no tripod positioning and no use of accessory muscles Auscultation: clear to auscultation bilaterally Cardio Jugular venous distension: no JVD Rate: regular rate Rhythm: regular rhythm Skin Other: warm, dry General skin exam: no rashes or lesions noted Neuro General: patient oriented x3 Cranial nerves: Yes Normal hearing present Cognition (Neuro): normal cognition Gait exam (Neuro): Normal gait present Extrem General: Yes normal to inspection, Yes capillary refill normal, Yes no clubbing, cyanosis or edema and Yes no pedal edema Psych Appearance: grossly normal and well kempt Speech and movement: Normal speech and movement present and Clear speech present Affect: normal affect Attitude: cooperative Thought process: Normal thought process present Thought content: Normal thought content present Insight: Good insight present (Psych) Judgement: Good judgement present (Psych) Office Procedures Nebulizer Treatment Nebulizer Treatment 70130-[id number]/MDI RX initial, or Nebulizer Subsequent Treatment Office Meds ipratropium 0.5 mg-albuterol 3 mg (2.5 mg base)/3 mL nebulization soln Performing Provider: Ciera Bliss NP Performing Location: [facility] [place] [facility] [place] [facility] Administered by: Rhina Falk LPN on 12/04/23 09:34 Dose Route Admin Location Dispensed Lot Number Expiration Date NDC [employer] 3 mL inhalation 3 mL [id number] 06/30/25 57496-875-55 [employer] Assessment & Plan Assessment & Plan (1) Dyspnea on exertion: Code(s): R06.09 - Other forms of dyspnea (2) Abnormal chest x-ray: Code(s): R93.89 - Abnormal findings on diagnostic imaging of other specified body structures (3) Bronchiectasis: Code(s): J47.9 - Bronchiectasis, uncomplicated Plan Cough improved with duoneb, will send in prescription for nebulizer as well as duoneb to use PRN. Advised to continue pulmicort and ipratropium. All questions were answered and patient is in agreement of plan. Will follow up for regularly scheduled appointment in December or sooner if needed. Orders: Orders AMB Nebulizer Treatment Today J47.9 - Bronchiectasis, uncomplicated Coding Level of Care Code Est Pt Level 4 (48476) Diagnoses Dyspnea on exertion R06.09 Abnormal chest x-ray R93.89 Bronchiectasis J47.9 CPT Codes Nebulizer Treatment - Nebulizer Treatment, initial or subsequent: 47122-Nryvndoqh/MDI RX initial, or Nebulizer Subsequent Treatment ([id number])
[2023-12-04 09:04] VITALS: BP 126/72; PULSE 91; O2SAT 98; BMI 41.8
== END 2023-12-04 09:46 | disposition home or self-care (01) ==
PROVIDERS: PCP Nurse Practitioner Family; Visit Provider Nurse Practitioner Family
DX: R06.09 Other forms of dyspnea (principal); R93.89 Abnormal findings on diagnostic imaging of other specified body structures; J47.9 Bronchiectasis, uncomplicated
CPT/HCPCS: 99214

== ENCOUNTER → 2023-12-04 09:00 | Outpatient (BNVA) | payer BC, SELFPAY | PROVIDERS: PCP Nurse Practitioner Family; Visit Provider Nurse Practitioner Family | DX: R06.09 Other forms of dyspnea (principal); R93.89 Abnormal findings on diagnostic imaging of other specified body structures; J47.9 Bronchiectasis, uncomplicated | CPT/HCPCS: 94640 ==

== ENCOUNTER 2024-01-23 09:09 | Outpatient (AMB) | payer BC, SELFPAY ==
[2024-01-23 09:11] VITALS: BP 128/76; PULSE 98; O2SAT 97; BMI 44.4
--- NOTE | 2024-01-23 09:11 | A.OFFVIS_ITS ---
Vital Signs 01/23/24 09:11 Height 5 ft 5 in Weight 267 lb 2 oz BMI 44.4 BP 128/76 Blood Pressure Location Rt brachial Position Sitting Pulse 98 Pulse Source Pulse Oximeter Pulse Oximetry (%) 97 Oxygen Delivery Method Room Air Intake Visit Reasons: dyspnea: 3 month f/u Allergies No Known Allergies Allergy (Verified 01/23/24 09:13) HPI HPI dyspnea: 3 month f/u: Details: Ewelina is a pleasant 58 year old, never smoker, with underlying history of COVID in 2020 requiring 8 day ICU stay and recent hospital admission for sepsis, DKA, pneumonia and AK in August 2023. At the last visit she was started on pulmicort and duoneb PRN. She feels symptoms continue to be suboptimally controlled with waxing and waning dry cough as well as dyspnea on exertion. She denies wheezing and chest congestion. Recently she reports post nasal drip and possible seasonal allergies, as well as intermittent productive cough with clear sputum. Denies any recent allergy testing. Of note, patient recently admitted to [facility] for occipital neuralgia. [facility] Medical History (Updated 01/23/24 @ 09:38 by Ciera Bliss NP) Elevated serum GGT level Atherosclerotic cardiovascular disease Non-ST elevation [place] (NSTEMI) Action tremor Chronic headaches GERD (gastroesophageal reflux disease) Hyperlipidemia Depression Pneumonia Sepsis Barretts esophagus Dyslipidemia HTN (hypertension) Charcot's joint of foot Diabetes Surgical History H/O foot surgery Hx of cholecystectomy H/O: hysterectomy Family History Son Substance use disorder Father Substance use disorder Mother Substance use disorder Family/Other Substance use disorder Maternal Grandfather Heart problem Maternal Uncle Heart problem Paternal Grandmother Heart problem Sister Heart problem Social History Household Members: None Housing: Condominium Do you presently have visiting nurse or other home services: No Alcohol intake: never Patient Tobacco Use Status: Never used Tobacco e-Cigarette/Vaping Use: Never Used Second Hand Smoke Exposure: No Advance Directives Date on File: 07/25/23 service: No Current occupational status: employed 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 Current occupational exposures/hazards: No Cognitive needs: No Hearing needs: No Vision needs: No Review of Systems Const Denies chills, Denies excessive sweating, Denies fever(s), Denies headache(s) and Denies night sweats Eyes Denies dry eyes, Denies irritation and Denies itchy eyes ENT Reports Normal hearing present, Denies headache(s), Denies nasal congestion, Denies nasal discharge, Denies post nasal drip and Denies sore throat Card Denies chest pain, Denies chest pain at rest, Denies chest pain with activity, Denies claudication, Denies leg edema, Denies orthopnea and Denies paroxysmal nocturnal dyspnea Resp Denies chest congestion, Denies excessive phlegm production, Denies pain on inspiration, Denies pain with cough, Denies stridor and Denies wheezing Musc Denies myalgias Neuro Reports Normal hearing present and Denies headache(s) Endo Denies excessive sweating Gary/Lymph Denies lymphadenopathy Aller/Immun Denies itchy eyes, Denies seasonal rhinorrhea and Denies wheezing Physical Exam Vital Signs: Last Vital Signs Pulse 98 01/23/24 09:11 BP 128/76 01/23/24 09:11 Pulse Ox 97 01/23/24 09:11 Oxygen Delivery Method Room Air 01/23/24 09:11 BMI result Body Mass Index 44.4 Const General: cooperative, healthy appearing, comfortable, no acute distress, well developed and alert Nutritional Appearance: obese Orientation/consciousness: patient oriented x3 Limitations: no limitations HEENT Head: Yes normal to inspection, Yes normocephalic and Yes atraumatic Ears: hearing grossly normal bilaterally and external ears normal Eyes General: appearance normal, both eyes and all related structures Eyelids: Yes eyelids normal Sclerae: sclerae normal EOM: EOMs intact bilaterally Neck Neck: Yes normal visual inspection and Yes no lymphadenopathy Lymphatic: no lymphadenopathy noted Chest Chest palpation & inspection: normal inspection of the chest Resp Effort & Inspection: normal respiratory effort, able to speak in complete sentences, no audible wheezes, no stridor, not tachypneic, no tripod positioning and no use of accessory muscles Auscultation: clear to auscultation bilaterally Cardio Jugular venous distension: no JVD Rate: regular rate Rhythm: regular rhythm Skin Other: warm, dry General skin exam: no rashes or lesions noted Neuro General: patient oriented x3 Cranial nerves: Yes Normal hearing present Cognition (Neuro): normal cognition Gait exam (Neuro): Normal gait present Extrem General: Yes normal to inspection, Yes capillary refill normal, Yes no clubbing, cyanosis or edema and Yes no pedal edema Psych Appearance: grossly normal and well kempt Speech and movement: Normal speech and movement present and Clear speech present Affect: normal affect Attitude: cooperative Thought process: Normal thought process present Thought content: Normal thought content present Insight: Good insight present (Psych) Judgement: Good judgement present (Psych) Assessment & Plan Assessment & Plan (1) Dyspnea on exertion: Code(s): R06.09 - Other forms of dyspnea Category: Medical (2) Abnormal chest x-ray: Code(s): R93.89 - Abnormal findings on diagnostic imaging of other specified body structures Category: Medical (3) Bronchiectasis: Code(s): J47.9 - Bronchiectasis, uncomplicated Category: Medical Plan Ewelina reports suboptimal control on pulmicort. Will switch to symbicort and advised to continue duoneb PRN. Patient with symptoms of intermittent productive cough with clear sputum that started a few days ago, and patient traveling next week. Will send a watch and wait prescription in case patient's symptoms worsen. Will also send for RAST testing. Patient reported symptoms of occipital neuralgia, will send to pain management for possible occipital nerve injections. All questions were answered and patient is in agreement of plan. Will follow up for 3 months or sooner if needed. Orders: Orders Immunoglobulin E Today Z91.09 - Other allergy status, other than to drugs and biological substances Resp Allergy Profile Region I Today Z91.09 - Other allergy status, other than to drugs and biological substances Complete Blood Count Auto Diff Today Z91.09 - Other allergy status, other than to drugs and biological substances Referrals Pain Management Referral M54.81 - Occipital neuralgia Medications: New azithromycin For 250 mg dose pack: take 500 mg today (day 1), then 250 mg for 4 days (days 2-5) PO WATCH AND WAIT 6 tabs 0RF budesonide-formoterol 80-4.5 mcg/actuation (Breyna) 2 puffs inhalation BID 10.2 grams 6RF Discontinued budesonide 90 mcg/actuation (Pulmicort Flexhaler) Discontinued Reason: Patient Completed Course 1 inh inhalation BID 1 ea 3RF Coding Level of Care Code Est Pt Level 4 (12122) Diagnoses Dyspnea on exertion R06.09 Abnormal chest x-ray R93.89 Bronchiectasis J47.9
== END 2024-01-23 09:43 | disposition home or self-care (01) ==
PROVIDERS: PCP Nurse Practitioner Family; Visit Provider Nurse Practitioner Family
DX: R06.09 Other forms of dyspnea (principal); R93.89 Abnormal findings on diagnostic imaging of other specified body structures; J47.9 Bronchiectasis, uncomplicated
CPT/HCPCS: 99214

== ENCOUNTER → 2024-01-23 09:09 | Outpatient (BNVA) | payer BC, SELFPAY | PROVIDERS: PCP Nurse Practitioner Family; Visit Provider Nurse Practitioner Family ==

== ENCOUNTER 2024-01-23 10:12 | Outpatient (REF) | payer BC, SELFPAY ==
[2024-01-23 11:32] LABS: MANUAL DIFF FLAG NO
[2024-01-23 11:45] LABS: Basophils Absolute Auto 0.1 X10*3/uL (0.0-0.2); Basophils Percent Auto 0.6 % (0-2); Eosinophils Absolute Auto 0.2 X10*3/uL (0.0-0.4); Eosinophils Percent Auto 2.6 % (0-4); Hematocrit 38.5 % (37.0-47.0); Imm Gran Abs Auto 0.03 X10*3/uL (0.00-0.03); Imm Gran Pct Auto 0.3 % (0.0-0.4); Lymphocytes Absolute Auto 1.7 X10*3/uL (1.2-4.9); Lymphocytes Percent Auto 19.1 % (20-40); Mean Corpuscular HGB Conc 31.2 g/dl (31.0-35.0); Mean Corpuscular Hemoglobin 26.8 pg (27.0-33.0); Mean Corpuscular Volume 85.9 fL (80.0-98.0); Monocytes Absolute Auto 0.4 X10*3/uL (0.1-1.2); Monocytes Percent Auto 4.6 % (2-11); Neutrophils Absolute Auto 6.5 x10*3/uL (2.0-8.3); Neutrophils Percent Auto 72.8 % (45-73); Platelet Count 298 X10*3/uL (160-400); Red Blood Count 4.48 X10*6/uL (4.20-5.50); Red Cell Distribution Width 13.2 % (11.0-16.0)
[2024-01-24 14:28] LABS: Class Alternaria alternata 0; Class Aspergillus fumigatus 0; Class Bermuda Grass 0; Class Birch 0; Class Cat Dander 0; Class Cladosporium herbarum 0; Class Cockroach 0; Class Common Ragweed 0; Class Cottonwood 0; Class Derm. pterony 0; Class Dermatophagoides farinae 0; Class Dog Dander 0; Class Elm 0; Class Maple Box Elder 0; Class Mountain Cedar 0; Class Mouse Urine Protein 0; Class Mugwort 0; Class Oak 0; Class Penicillium crysogenum 0; Class Rough Pigweed 0; Class Sheep Sorrel 0; Class Sycamore 0; Class Timothy Grass 0; Class Walnut Tree 0; Class White Ash 0; Class White Mulberry 0; D001 IgE D pteronyssinus <0.10 kU/L; D002 - IgE D farinae <0.10 kU/L; E001 - IgE Cat Dander <0.10 kU/L; E005 - IgE Dog Dander <0.10 kU/L; E072-IgE Mouse Urine <0.10 kU/L; G002 IgE Bermuda Grass <0.10 kU/L; G006 - IgE Timothy Grass <0.10 kU/L; I006-IgE Cockroach, German <0.10 kU/L; Immunoglobulin E 26 kU/L (<OR=114); M001 IgE Penicillium chrysogen <0.10 kU/L; M002 - IgE Cladosporium herbar <0.10 kU/L; M003 - IgE Aspergillus fumigat <0.10 kU/L; M006 - IgE Alternaria alternat <0.10 kU/L; T001 IgE Maple/Box Elder <0.10 kU/L; T003 IgE Common Silver Birch <0.10 kU/L; T006 - IgE Cedar, Mountain <0.10 kU/L; T007 - IgE Oak, White <0.10 kU/L; T008 IgE Elm, American <0.10 kU/L; T010 - IgE Walnut <0.10 kU/L; T011 - IgE Maple Leaf Sycamore <0.10 kU/L; T014 - IgE Cottonwood <0.10 kU/L; T015 - IgE Ash, White <0.10 kU/L; T070 - IgE White Mulberry <0.10 kU/L; W001 - IgE Ragweed, Short <0.10 kU/L; W006 - IgE Mugwort <0.10 kU/L; W014 IgE Pigweed, Common <0.10 kU/L; W018 IgE Sheep Sorrel <0.10 kU/L
== END 2024-01-23 10:13 | disposition home or self-care (01) ==
LOC: HO.WFDLDS 10:12
PROVIDERS: Visit Provider Nurse Practitioner Family
DX: Z91.09 Other allergy status, other than to drugs and biological substances (principal)
CPT/HCPCS: 36415; 82785; 85025; 86003

== ENCOUNTER 2024-02-28 15:31 | Outpatient (AMB) | payer BC, SELFPAY ==
--- NOTE | 2024-02-28 15:32 | A.OFFPC_ITS ---
Vital Signs 02/28/24 15:37 Height 5 ft 5 in Weight 267 lb BMI 44.4 BP 120/80 Blood Pressure Location Lt brachial Position Sitting Pulse 97 Pulse Source Pulse Oximeter Pulse Oximetry (%) 99 Oxygen Delivery Method Room Air Intake Visit Reasons: ED-Hypoglycemia and had a seizure Intake Note: Patient is here for ED f/u. Allergies No Known Allergies Allergy (Verified 02/28/24 17:02) Medication List - Last Reconciled 02/28/24 by SALO Esteban-DORA acetaminophen ER 650 mg PO Q12H PRN albuterol sulfate 90 mcg/actuation 2 puffs inhalation Q4-6H PRN amlodipine 5 mg PO DAILY aspirin 81 mg PO DAILY atorvastatin 80 mg PO DAILY blood-glucose sensor ([employer] G6 Sensor device) As directed blood-glucose transmitter (Dexcom G6 Transmitter device) As directed bupropion HCl XL 300 mg PO DAILY evolocumab (Repatha SureClick) 140 mg subcut Q2W 90 days fluticasone propion-salmeterol 250-50 mcg/dose (Wixela Inhub) 1 inh inhalation Q12H gabapentin 300 mg PO TID hydroxyzine HCl 10 mg PO DAILY PRN hyoscyamine sulfate 0.125 mg PO BID PRN insulin aspart (niacinamide) 100 unit/mL (3 mL) (Fiasp FlexTouch U-100 Insulin) 10 units subcut TID insulin glargine (Basaglar KwikPen U-100 Insulin) 50 units subcut QPM ipratropium bromide 2 sprays intranasal BID ipratropium-albuterol 0.5 mg-3 mg(2.5 mg base)/3 mL 3 mL inhalation Q6H PRN lisinopril 10 mg See Protocol PO DAILY pantoprazole 20 mg PO DAILY@0630 semaglutide (Ozempic) 0.5 mg subcut QWEEK tramadol 50 mg PO DAILY PRN trazodone 100 mg PO BEDTIME Tobacco use date assessed: 10/31/23 Dental Screening Dental Screen Date: 10/31/23 HPI ED-Hypoglycemia and had a seizure HPI Details Pt was seen in the ER on 01/05 c/o severe headache and nausea. She was given droperidol and dilaudid with improvement. Head CT was negative for acute findings. Pt reports that she was diagnosed with occipital neuralgia. Pt reports that this is improving. She will be following up with pain management for this. Missing some documentation from [place]. Pt reports another episode on 02/03 in [place] where she stood up and did not remember anything after that. Pt's sister reported witnessing seizure-like activity. This was thought to be due to hypoglycemia (sugar was 33). Missing complete documentation from this. She is seeing endo for her diabetes. Pt has an upcoming appointment with neurology in March. She is also following up with pulmonology and cardiology. Denies fever, chills, and dizziness, blurred vision, or known seizure like activity. [facility] Medical History Carotid stenosis, bilateral Elevated serum GGT level Atherosclerotic cardiovascular disease Non-ST elevation [place] (NSTEMI) Action tremor Chronic headaches GERD (gastroesophageal reflux disease) Hyperlipidemia Depression Pneumonia Sepsis Barretts esophagus Dyslipidemia HTN (hypertension) Charcot's joint of foot Diabetes Surgical History H/O foot surgery Hx of cholecystectomy H/O: hysterectomy Family History Son Substance use disorder Father Substance use disorder Mother Substance use disorder Family/Other Substance use disorder Maternal Grandfather Heart problem Maternal Uncle Heart problem Paternal Grandmother Heart problem Sister Heart problem Social History Household Members: None Housing: Condominium Do you presently have visiting nurse or other home services: No Alcohol intake: never Patient Tobacco Use Status: Never used Tobacco e-Cigarette/Vaping Use: Never Used Second Hand Smoke Exposure: No Advance Directives Date on File: 07/25/23 service: No Current occupational status: employed 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 Cruz Gilbert, Jenna Acosta, Rick Cohen and colleagues, with an educational gabriel from [employer]. Review of Systems Const Reports as per HPI Physical exam (Primary Care) Vital Signs: Last Vital Signs Pulse 97 02/28/24 15:37 BP 120/80 02/28/24 15:37 Pulse Ox 99 02/28/24 15:37 Oxygen Delivery Method Room Air 02/28/24 15:37 BMI result Body Mass Index 44.4 Tobacco/Smoking Status: Tobacco use Status Tobacco use date assessed 10/31/23 02/28/24 15:32 Patient Tobacco Use Status Never used Tobacco 02/28/24 15:32 e-Cigarette/Vaping Use Never Used 02/28/24 15:32 Thrive Assessment: Date of Thrive Assessment Date Thrive assessed 10/31/23 02/28/24 15:32 Const General: cooperative Nutritional Appearance: obese morbidly obese Orientation/consciousness: patient oriented x3 Limitations: ambulation with walker Resp Effort & Inspection: normal respiratory effort Auscultation: clear to auscultation bilaterally Cardio Rate: regular rate Rhythm: regular rhythm Heart sounds: S1 normal heart sound present and S2 normal heart sound present Neuro Other: arm pull test negative, finger to thumb intact bilat, slight swaying with romberg, slight tremor to left hand General: patient oriented x3 and CN's II-XI intact bilaterally Psych Appearance: grossly normal Mental Status: mental status grossly normal Speech and movement: Normal speech and movement present Affect: normal affect Attitude: cooperative Thought process: Normal thought process present Thought content: Normal thought content present Insight: Good insight present (Psych) Judgement: Good judgement present (Psych) Assessment and Plan Assessment & Plan (1) Hypoglycemia: Code(s): E16.2 - Hypoglycemia, unspecified Plan: Labs ordered, following up with endo (2) Post-menopausal: Code(s): Z78.0 - Asymptomatic menopausal state Plan: Vitamin D ordered (3) Occipital neuralgia: Code(s): M54.81 - Occipital neuralgia Plan: Pt will be following up with pain management (4) Diabetes mellitus with hypoglycemia: Code(s): E11.649 - Type 2 diabetes mellitus with hypoglycemia without coma Plan: Following up with endo (5) Witnessed seizure-like activity: Code(s): R56.9 - Unspecified convulsions Plan: Thought to be due to hypoglycemia, following up with neuro and endo Plan The patient agreed to the use of a medical assistant prn for this encounter. Scribed for Joel Alegria, [facility]- by Geena Baxter, medical assistant prn, on 02/28/2024 at 16:00 EST. Orders: Orders Complete Blood Count Auto Diff Today E16.2 - Hypoglycemia, unspecified IRON PROFILE Today E16.2 - Hypoglycemia, unspecified Vitamin D 25-OH Total Today Z78.0 - Asymptomatic menopausal state Comprehensive [place]. Panel Fast Today E16.2 - Hypoglycemia, unspecified TSH reflex Free T4 Today E16.2 - Hypoglycemia, unspecified UA CC w/rflx Micro + Cult Today E16.2 - Hypoglycemia, unspecified Lipid Panel Today E16.2 - Hypoglycemia, unspecified Ferritin Today E16.2 - Hypoglycemia, unspecified Vitamin B12 and Folate Today E16.2 - Hypoglycemia, unspecified Medications: Changed From lisinopril 2.5 mg See Protocol PO DAILY 90 tabs 0RF To lisinopril 10 mg See Protocol PO DAILY Coding Level of Care Code Est Pt Level 3 (98355) Diagnoses Hypoglycemia E16.2 Post-menopausal Z78.0 Occipital neuralgia M54.81 Diabetes mellitus with hypoglycemia E11.649 Witnessed seizure-like activity R56.9
[2024-02-28 15:37] VITALS: BP 120/80; PULSE 97; O2SAT 99; BMI 44.4
== END 2024-02-28 16:25 | disposition home or self-care (01) ==
PROVIDERS: PCP Nurse Practitioner Family; Visit Provider Nurse Practitioner Family
DX: E11.649 Type 2 diabetes mellitus with hypoglycemia without coma (principal); Z78.0 Asymptomatic menopausal state; M54.81 Occipital neuralgia; R56.9 Unspecified convulsions
CPT/HCPCS: 99213

== ENCOUNTER 2024-03-07 08:29 | Outpatient (AMB) | payer BC, SELFPAY ==
--- NOTE | 2024-03-07 08:49 | A.OFFVIS_ITS ---
Vital Signs 03/07/24 08:50 Height 5 ft 5 in Weight 266 lb BMI 44.3 BP 117/58 L Blood Pressure Location Lt radial Position Sitting Respiration 14 Pulse 103 H Pulse Source Pulse Oximeter Pulse Oximetry (%) 99 Oxygen Delivery Method Room Air Intake Visit Reasons: occipital neuralgia Allergies No Known Allergies Allergy (Verified 03/07/24 08:52) Medication List - Last Reconciled 03/07/24 by Sarah Adkins LPN acetaminophen ER 650 mg PO Q12H PRN albuterol sulfate 90 mcg/actuation 2 puffs inhalation Q4-6H PRN amlodipine 5 mg PO DAILY aspirin 81 mg PO DAILY atorvastatin 80 mg PO DAILY blood-glucose sensor ([employer] G6 Sensor device) As directed blood-glucose transmitter (Dexcom G6 Transmitter device) As directed bupropion HCl XL 300 mg PO DAILY evolocumab (Repatha SureClick) 140 mg subcut Q2W 90 days fluticasone propion-salmeterol 250-50 mcg/dose (Wixela Inhub) 1 inh inhalation Q12H gabapentin 300 mg PO TID hydroxyzine HCl 10 mg PO DAILY PRN hyoscyamine sulfate 0.125 mg PO BID PRN insulin aspart (niacinamide) 100 unit/mL (3 mL) (Fiasp FlexTouch U-100 Insulin) 10 units subcut TID insulin glargine (Basaglar KwikPen U-100 Insulin) 50 units subcut QPM ipratropium bromide 2 sprays intranasal BID ipratropium-albuterol 0.5 mg-3 mg(2.5 mg base)/3 mL 3 mL inhalation Q6H PRN lisinopril 10 mg See Protocol PO DAILY pantoprazole 20 mg PO DAILY@0630 semaglutide (Ozempic) 0.5 mg subcut QWEEK tramadol 50 mg PO DAILY PRN trazodone 100 mg PO BEDTIME HPI HPI occipital neuralgia: Details: 58-year-old female who presents today to the office for an evaluation of occipital neuralgia. She was referred to us for consideration of peripheral nerve blocks. She started having symptoms of left sided periauricular and ocular temporal headaches/pain that were brought on by an unknown factor. Pain is described as 6?9/10 in intensity. She describes her pain as a stabbing sensation in nature. It does not wake her up from sleep. She has not done physical therapy for her neck. She had a CT scan and an MRI scan. She has 25% blockage in her arteries. She will follow up with the with the video game technician at [facility]. She was seen in the ER on 01/06/24 for severe headaches and nausea. She was given droperidol and dilaudid with improvement. She had a CT scan of her head that was unremarkable. She was diagnosed with occipital neuralgia. The patient reports another episode on 02/03 in [place], where she stood up and did not remember anything after that. Her sister reported witnessing seizure-like activity. This was thought to be due to hypoglycemia (sugar was 33). She has been following up with an cold roll inspector about her diabetes. The patient has an upcoming appointment with neurology in March. She is also following up with pulmonology and cardiology. She also has a history of left ankle pain and a history of prior left ankle fusion, for which she has been receiving corticosteroid injections from her orthopedic surgeons over the past two to three years. Unfortunately, she no longer has relief from the corticosteroid injections, and instead, they have been affecting her glycemic control and weight loss program. She is interested in alternative strategies for her left foot pain. Pain is described as an aching pain that is worse with weight bearing and movement and relieves when she is not. Recent medical history is notable for prolonged ICU admissions for COVID-19. 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 She had five COVID-19 vaccines. She has a history of diabetes mellitus. She is currently on Ozempic injection. She is trying to lose some weight.? [facility] Medical History (Updated 03/13/24 @ 17:17 by Maicol Wang MD) Carotid stenosis, bilateral Elevated serum GGT level Atherosclerotic cardiovascular disease Non-ST elevation [place] (NSTEMI) Action tremor Chronic headaches GERD (gastroesophageal reflux disease) Hyperlipidemia Depression Pneumonia Sepsis Barretts esophagus Dyslipidemia HTN (hypertension) Charcot's joint of foot Diabetes Surgical History H/O foot surgery Hx of cholecystectomy H/O: hysterectomy Family History Son Substance use disorder Father Substance use disorder Mother Substance use disorder Family/Other Substance use disorder Maternal Grandfather Heart problem Maternal Uncle Heart problem Paternal Grandmother Heart problem Sister Heart problem Social History Household Members: None Housing: Condominium Do you presently have visiting nurse or other home services: No Alcohol intake: never Patient Tobacco Use Status: Never used Tobacco e-Cigarette/Vaping Use: Never Used Second Hand Smoke Exposure: No Advance Directives Date on File: 07/25/23 service: No Current occupational status: employed 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 Alert and oriented. Mood and affect appropriate. Follows and participates in conversation appropriately. Respiratory effort is unlabored. Able to transition from sit to stand unassisted. Ambulates with bilaterally normal heel strike and toe off. Results Reviewed Results Reviewed: No imaging is available for review. Assessment & Plan Assessment & Plan (1) Cervical spondylosis: Code(s): M47.812 - Spondylosis without myelopathy or radiculopathy, cervical region Category: Medical (2) Left ankle pain: Code(s): M25.572 - Pain in left ankle and joints of left foot Category: Medical Plan For her left ankle pain, we discussed temporary nerve stimulation as well as DRG stimulation as potential treatment options. I provided her device brochure and went to discuss the details of sprint PNS for the left sciatic nerve targeting the left ankle pain of the temporary measure while we work on her weight loss program with the [employer]. A referral was provided to physical therapy for the neck to see if that might help relieve some of the symptoms. A script was also provided to the patient for physical therapy. ?If this is not helpful, we will consider diagnostic high cervical medial branch blocks and or trial of temporary PNS for cervical occipital neuralgia. She will let us know if and when she would like to proceed with PNS for cervical occipital headache symptoms. Ordered an x-ray of the neck for further evaluation. Scribed for Dr. Wang by Mariano Aguayo, medical advisor, on 03/07/2024. I, Dr. Wang, have personally reviewed and agree with the information entered by the scribe. Orders: Orders PT Evaluation and Treatment 03/07/24 M47.812 - Spondylosis without myelopathy or radiculopathy, cervical region XR cervical spine w flex/ext 03/07/24 M47.812 - Spondylosis without myelopathy or radiculopathy, cervical region Coding Level of Care Code New Pt Level 4 (45950) Diagnoses Cervical spondylosis M47.812 Left ankle pain M25.572
[2024-03-07 08:50] VITALS: BP 117/58; PULSE 103; RESP 14; O2SAT 99; BMI 44.3
== END 2024-03-07 09:23 | disposition home or self-care (01) ==
PROVIDERS: PCP Nurse Practitioner Family; Visit Provider Internal Medicine
DX: M47.812 Spondylosis without myelopathy or radiculopathy, cervical region (principal); M25.572 Pain in left ankle and joints of left foot
CPT/HCPCS: 99204

== ENCOUNTER 2024-03-07 08:29 | Outpatient (REF) | payer BC, SELFPAY ==
--- NOTE | ~2024-03-07 | XR_ITS ---
EXAMINATION: XR CERVICAL SPINE CLINICAL INFORMATION: Spondylosis without myelopathy. COMPARISON: None available. TECHNIQUE: 6 views of the cervical spine, inclusive of flexion and extension views, were obtained. FINDINGS: Straightening of the normal cervical lordosis. Degenerative changes between the anterior arch of C1 and the odontoid. Advanced degenerative changes with hypertrophic change and loss of disc space height at C5-C6. Minimal anterolisthesis of C2 on C3, C3 on C4, and C4 on C5 with flexion which reduces with extension. Limited visualization of C7 due to overlying bony and soft tissue structures. XR/XR cervical spine w flex/ext IMPRESSION: Advanced degenerative disc disease at C5-C6.
== END 2024-03-07 08:30 | disposition home or self-care (01) ==
LOC: HO.XRAY 08:29
PROVIDERS: PCP Nurse Practitioner Family; Visit Provider Internal Medicine
DX: M47.812 Spondylosis without myelopathy or radiculopathy, cervical region (principal)
CPT/HCPCS: 72052

== ENCOUNTER 2024-03-07 10:19 | Outpatient (REF) | payer BC, SELFPAY ==
[2024-03-07 13:15] LABS: MANUAL DIFF FLAG NO
[2024-03-07 13:17] LABS: Appearance Urine Cloudy; Color Urine Yellow; Glucose Urine UA >=1000 mg/dL (Negative); Leukocyte Esterase Urine Negative (Negative); Nitrite Urine Negative (Negative); PH 5.5 (5.0-9.0); Specific Gravity - Urine 1.025 (1.005-1.025); UMIC TRIGGER UACC YES; Urine Blood Trace (Negative); Urine Ketones Negative (Negative); Urine Protein 30 (1+) mg/dL (Neg-Trace)
[2024-03-07 13:23] LABS: Bacteria Urine 4+ (None Seen); Hyaline Casts Urine 0-2 /LPF (0-2); RBC Urine >20 /HPF (0-2); Squamous Epithelial Cell Urine 0-2 /HPF (0-2); WBC Urine 0-5 /HPF (0-5)
[2024-03-07 13:32] LABS: Basophils Absolute Auto 0.1 X10*3/uL (0.0-0.2); Basophils Percent Auto 0.7 % (0-2); Eosinophils Absolute Auto 0.4 X10*3/uL (0.0-0.4); Eosinophils Percent Auto 5.7 % (0-4); Hematocrit 33.8 % (37.0-47.0); Hemoglobin 10.9 g/dl (12.0-16.0); Imm Gran Abs Auto 0.04 X10*3/uL (0.00-0.03); Imm Gran Pct Auto 0.5 % (0.0-0.4); Lymphocytes Percent Auto 26.7 % (20-40); Mean Corpuscular HGB Conc 32.2 g/dl (31.0-35.0); Mean Corpuscular Hemoglobin 27.1 pg (27.0-33.0); Mean Corpuscular Volume 84.1 fL (80.0-98.0); Mean Platelet Volume 9.5 fL (9.4-12.3); Monocytes Absolute Auto 0.4 X10*3/uL (0.1-1.2); Neutrophils Absolute Auto 4.4 x10*3/uL (2.0-8.3); Neutrophils Percent Auto 60.4 % (45-73); Platelet Count 271 X10*3/uL (160-400); Red Blood Count 4.02 X10*6/uL (4.20-5.50); Red Cell Distribution Width 13.3 % (11.0-16.0); White Blood Count 7.3 X10*3/uL (4.8-10.8)
[2024-03-07 14:00] LABS: Alanine Aminotransferase 26 U/L (0-31); Albumin Level 3.8 g/dL (3.5-5.0); Alkaline Phosphatase 149 U/L (39-117); Anion Gap 15 (12-20); Aspartate Amino Transferase 19 U/L (5-31); Bilirubin Total 0.3 mg/dL (0.0-1.0); Blood Urea Nitrogen 28 mg/dL (9-16); Calcium 9.1 mg/dL (8.4-10.2); Carbon Dioxide 19 mmol/L (22-29); Chloride 111 mmol/L (96-108); Cholesterol 105 mg/dL (<200); Estimated Glomerular Filt Rate 34; Ferritin 58 ng/mL (10-250); Glucose Fasting 193 mg/dL (60-99); HDL Cholesterol 40 mg/dL (>40); Iron 60 mcg/dL (30-160); LDL Cholesterol Calculated 53 mg/dL (<100); Percent Iron Saturation 23 % (15-50); Potassium 5.2 mmol/L (3.3-5.1); Sodium 140 mmol/L (135-145); TSH reflex Free T4 0.91 uIU/mL (0.32-4.0); Total Iron Binding Capacity 261 mcg/dL (228-428); Total Protein 6.9 g/dL (6.5-8.0); Triglycerides 63 mg/dL (<150); Unsaturated Iron Binding 201 ug/dL; Vitamin D 25-OH Total 13.7 ng/mL (>30)
[2024-03-07 14:14] LABS: Folate 5.7 ng/mL (> or = 4.0); Vitamin B12 254 pg/mL (200-900)
== END 2024-03-07 10:20 | disposition home or self-care (01) ==
LOC: HO.HMGCLDS 10:19
PROVIDERS: PCP Nurse Practitioner Family; Visit Provider Nurse Practitioner Family
DX: E16.2 Hypoglycemia, unspecified (principal); Z78.0 Asymptomatic menopausal state
CPT/HCPCS: 36415; 80053; 80061; 81001; 82306; 82607; 82728; 82746; 83540; 84443; 85025

== ENCOUNTER 2024-03-11 08:41 | Outpatient (AMB) | payer BC, SELFPAY ==
--- NOTE | 2024-03-11 07:24 | MHC.PC.OV ---
Intake Visit Reasons: lab review-iphone Allergies No Known Allergies Allergy (Verified 03/07/24 08:52) Tobacco use date assessed: 10/31/23 Dental Screening Dental Screen Date: 10/31/23 HPI lab review-iphone HPI Details Pt is a diabetic, sees endo. Pt was recently started on ozempic by endo. She reports severe nausea and vomiting. Pt has taken 2 doses of this. Recommended stopping this med. Pt's recent labs were noted to be off including micro hem, anemia, elevated creatinine, and hyperkalemia, will repeat. I wanted pt to go to the ER at least for fluids but she did not go. Denies fever, chills, and dizziness. repeating labs this week, instructed to sip water and stop the ozempic. [facility] Medical History Carotid stenosis, bilateral Elevated serum GGT level Atherosclerotic cardiovascular disease Non-ST elevation ND (NSTEMI) Action tremor Chronic headaches GERD (gastroesophageal reflux disease) Hyperlipidemia Depression Pneumonia Sepsis Barretts esophagus Dyslipidemia HTN (hypertension) Charcot's joint of foot Diabetes Surgical History H/O foot surgery Hx of cholecystectomy H/O: hysterectomy Family History Son Substance use disorder Father Substance use disorder Mother Substance use disorder Family/Other Substance use disorder Maternal Grandfather Heart problem Maternal Uncle Heart problem Paternal Grandmother Heart problem Sister Heart problem Social History Household Members: None Housing: Condominium Do you presently have visiting nurse or other home services: No Alcohol intake: never Patient Tobacco Use Status: Never used Tobacco e-Cigarette/Vaping Use: Never Used Second Hand Smoke Exposure: No Advance Directives Date on File: 07/25/23 service: No Current occupational status: employed 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 Cruz Gilbert, Jenna Acosta, Rick Cohen and colleagues, with an educational gabriel from [employer]. Review of Systems Const Reports as per HPI Physical exam (Primary Care) Tobacco/Smoking Status: Tobacco use Status Tobacco use date assessed 10/31/23 03/11/24 07:27 Patient Tobacco Use Status Never used Tobacco 03/11/24 07:27 e-Cigarette/Vaping Use Never Used 03/11/24 07:27 Thrive Assessment: Date of Thrive Assessment Date Thrive assessed 10/31/23 03/11/24 07:27 Const General: cooperative Orientation/consciousness: patient oriented x3 Neuro General: patient oriented x3 Psych Appearance: grossly normal Mental Status: mental status grossly normal Speech and movement: Clear speech present Affect: normal affect Attitude: cooperative Thought process: Normal thought process present Thought content: Normal thought content present Insight: Good insight present (Psych) Judgement: Good judgement present (Psych) Telehealth Telehealth Telehealth Platform: [employer] Location of provider rendering services: practice address Location of patient: address on file Patient Identification confirmed using: Name, : Yes Telehealth method: video Patient verbally consented to treatment: Yes Patient verbally consented to billing insurance company: Yes Patient informed of any privacy concerns related to visit: Yes Minutes spent on Phone/Video with Pt.: 15 Assessment and Plan Assessment & Plan (1) Diabetes mellitus with hypoglycemia: Code(s): E11.649 - Type 2 diabetes mellitus with hypoglycemia without coma Plan: Labs ordered, stop ozempic (2) Hyperkalemia: Code(s): E87.5 - Hyperkalemia Plan: Labs ordered (3) Microscopic hematuria: Code(s): R31.29 - Other microscopic hematuria Plan: UA, culture, and cytology ordered (4) Anemia: Code(s): D64.9 - Anemia, unspecified Plan: Labs ordered Plan The patient agreed to the use of a medical laboratory assistant for this encounter. Scribed for DARVIN Saleh by alida Irving scribe, on 03/11/2024 at 07:20 EST. Orders: Orders Complete Blood Count Auto Diff Today D64.9 - Anemia, unspecified, E11.649 - Type 2 diabetes mellitus with hypoglycemia without coma, E87.5 - Hyperkalemia, R31.29 - Other microscopic hematuria Comprehensive Met. Panel Today D64.9 - Anemia, unspecified, E11.649 - Type 2 diabetes mellitus with hypoglycemia without coma, E87.5 - Hyperkalemia, R31.29 - Other microscopic hematuria IRON PROFILE Today D64.9 - Anemia, unspecified, E11.649 - Type 2 diabetes mellitus with hypoglycemia without coma, E87.5 - Hyperkalemia, R31.29 - Other microscopic hematuria Vitamin B12 and Folate Today D64.9 - Anemia, unspecified, E11.649 - Type 2 diabetes mellitus with hypoglycemia without coma, E87.5 - Hyperkalemia, R31.29 - Other microscopic hematuria Ferritin Today D64.9 - Anemia, unspecified, E11.649 - Type 2 diabetes mellitus with hypoglycemia without coma, E87.5 - Hyperkalemia, R31.29 - Other microscopic hematuria Urine Cytology Today D64.9 - Anemia, unspecified, E11.649 - Type 2 diabetes mellitus with hypoglycemia without coma, E87.5 - Hyperkalemia, R31.29 - Other microscopic hematuria Urine Culture Today D64.9 - Anemia, unspecified, E11.649 - Type 2 diabetes mellitus with hypoglycemia without coma, E87.5 - Hyperkalemia, R31.29 - Other microscopic hematuria UA CC w/rflx Micro + Cult Today D64.9 - Anemia, unspecified, E11.649 - Type 2 diabetes mellitus with hypoglycemia without coma, E87.5 - Hyperkalemia, R31.29 - Other microscopic hematuria Coding Level of Care Code Tele Est Pt Level 3 (51588) Diagnoses Diabetes mellitus with hypoglycemia E11.649 Hyperkalemia E87.5 Microscopic hematuria R31.29 Anemia D64.9
--- OUTSIDE RECORDS SUMMARY | 2024-03-11 08:43 | XMS_ITS | Continuity of Care Document ---
Author Organization [facility] Address [address] [place] [address]- Care Team Providers Care Range Feeder Name Role Phone Zane ALMARAZ, Maddie Soares Primary Care Physician Encounter [facility] Date(s): 10/01/20 - 10/07/[address] [id number] Discharge Disposition: A-D/C Home Attending Physician: Patrice Alvarez DO Admitting Physician: Tequila King MD Referring Physician: Deneen Phipps MD Allergies, Adverse Reactions, Alerts Substance Reaction Severity Status NKA Active Immunizations Given and Recorded Vaccine Date Status Refusal Reason influenza virus vaccine, inactivated 07/18/18 Give n Not Given Vaccine Date Status Refusal Reason pneumococcal 23-valent vaccine 07/18/18 Not Given Patient Refuses Medications aspirin 81 mg oral tablet 1 tablet = 81 mg, By Mouth, Daily, 0 Refills, Maintenance, 06/08/16 10:03:55 Start Date: 06/08/16 Status: Ordered atorvastatin 80 mg oral tablet 1 tablet = 80 mg, By Mouth, Daily at bedtime, 0 Refills, Maintenance Start Date: 06/08/16 Status: Ordered Basaglar KwikPen 100 units/mL subcutaneous solution = 50 units, Subcutaneous Infusion, Daily at bedtime, # 30 mL, 12 Refills, Maintenance, 10/18/17 11:11:34 EST, [id number] Start Date: 10/18/17 Status: Ordered buPROPion 150 mg/24 hours (XL) oral tablet, extended release 2 tablet = 300 mg, By Mouth, Daily, # 30 tablet, 0 Refills, Maintenance, 10/01/20 21:42:00 EST, ER Tablet, Partial fill upon patient request if the prescription is for a schedule II opioid drug. Start Date: 10/01/20 Status: Ordered dexamethasone 6 mg oral tablet 1 tablet = 6 mg, By Mouth, Daily, for 3 days, # 3 tablet, 0 Refills, Acute 10/10/20 16:03:00 EST, 10/07/20 16:03:00 EST, Tablet, [id number], Partial fill upon patient request if the prescription is for a schedule II opioid drug., 168, cm, ... Start Date: 10/07/20 Stop Date: 10/10/20 Status: Ordered Gabapentin 200 mg, Capsule, By Mouth, 10/07/20 9:00:00 EST Start Date: 10/07/20 Stop Date: 10/07/20 Status: Completed Gabapentin 200 mg, Capsule, By Mouth, 10/07/20 15:00:00 EST Start Date: 10/07/20 Stop Date: 10/07/20 Status: Completed gabapentin 300 mg oral capsule 300 mg, 1, capsule, By Mouth, 3 times a day, Refills 0, Maintenance, 06/08/16 10:04:10 Start Date: 06/08/16 Status: Ordered HumaLOG KwikPen (Concentrated) 200 units/mL subcutaneous solution See Instructions, per sliding scale ranging 8-32 units/meal or approx max 90 units daily.1mo., # 45mL, 12 Refills, Maintenance, 10/18/17 11:11:42 Start Date: 10/18/17 Status: Ordered Multivitamin Tablet 1 tablet, By Mouth, Daily, 0 Refills, Maintenance, 06/08/16 10:03:35 EDT Start Date: 06/08/16 Status: Ordered One Touch Delica Lancets See Instructions, # 150 each, Refills 6, Tot. Refills 6, Maintenance, use to check BG 4 x daily. Dx11.9, 10/19/17 14:32:22, Compound Start Date: 10/19/17 Status: Ordered OneTouch Verio Test Strips See Instructions, # 150 each, Refills 6, Tot. Refills 6, Maintenance, use to check BG 4 x daily. Dx11.9, 10/19/17 14:31:52, Compound Start Date: 10/19/17 Status: Ordered Pen [place], 32 G x 4 mm BD Ultra Fine III See instructions, # 150 each, Refills 12, Tot. Refills 12, Maintenance, 5 daily inejctions (3 with humalog, 2 with basaglar), 10/18/17 11:08:34, increased, Compound Start Date: 10/18/17 Stop Date: 12/31/20 Status: Ordered Rolling walker Rolling walker, See Instructions, # 1 each, Refills 0, Tot. Refills 0, Maintenance, Please dispenserolling walker for assistance in ambulation, 07/24/18 12:32:21 EDT, Compound Start Date: 07/24/18 Status: Ordered Trazodone = 50 mg, By Mouth, Daily at bedtime, 0 Refills, Maintenance, 04/20/20 16:28:00 EDT Start Date: 04/20/20 Status: Ordered Trulicity Pen 1.5 mg/0.5 mL subcutaneous solution 0.5 mL = 1.5 mg, Subcutaneous Injection, Every week, rotate injection sites, # 2 mL, 0 Refills, Maintenance, 04/20/20 16:24:00 EDT, Solution Start Date: 04/20/20 Status: Ordered Tylenol Extra Strength 500 mg oral tablet 2 tablet = 1,000 mg, By Mouth, 3 times a day, PRN as needed for pain, # 90 tablet, 0 Refills, Maintenance, 04/27/20 6:48:00 EDT, Tablet Start Date: 04/27/20 Status: Ordered Problem List Condition Effective Dates Status Health Status Inform ant Essential hypertension(Confirmed) Active Sleep-disordered breathing(Confirmed) Active GERD (gastroesophageal reflu x disease)(Confirmed) Active Hyperlipidemia(Confirmed) Active Depression with anxiety(Confirmed) Active Obesity(Confirmed) Active Peripheral vascular disease(Confirmed) Active Type 2 diabetes mellitus(Confirmed) Active Results Orders for Microbiology Reports Name Date Blood Culture 10/01/20 Blood Culture #2 10/01/20 Microbiology Reports TEST:Blood Culture, Second Order STATUS:Auth (Verified) BODY SITE: SOURCE:Blood COLLECTED DATE/TIME:10/01/20 5:44 PM Blood Culture, Second Order SPECIMEN DESCRIPTION : BLOOD LT HAND SPECIAL REQUESTS : NONE CULTURE : NO GROWTH 5 DAYS. REPORT STATUS : FINAL 10/06/2020 TEST:Blood Culture STATUS:Auth (Verified) BODY SITE: SOURCE:Blood COLLECTED DATE/TIME:10/01/20 5:40 PM Blood Culture SPECIMEN DESCRIPTION : BLOOD LT AC SPECIAL REQUESTS : NONE CULTURE : NO GROWTH 5 DAYS. REPORT STATUS : FINAL 10/06/2020 Radiology Reports * Exam Date Time Procedure Performing Provider Status 10/01/20 5:02 PM Chest Portable Kimberly Jain; Willis (Juan Ramon ified) Notes: (Chest Portable) Reason For Exam: Shortness of Breath RESULT: Chest Portable Chest Portable Reason: Shortness of Breath; Clinical Question(s): CHF COMPARISON: 05/14/2020 FINDINGS: LINES AND TUBES: None. LUNGS AND PLEURA: Clear lungs. Normal pulmonary vascularity. No pleural effusion. No pneumothorax. HEART, MEDIASTINUM AND ARY: Heart is normal in size. Normal upper mediastinal and hilar contour. BONES AND SOFT TISSUES: No acute abnormality. IMPRESSION: No acute abnormality. WSN: [id number] Ordering Physician: Deneen Phipps Dictated By: Ag Alvarez MD Dictated Date/Time: 10/01/20 5:04 pm Reviewed By: Ag Alvarez MD Signed By: Ag Alvarez MD Signed Date/Time: 10/01/20 5:04 pm Transcribed By: MARIA ELENA Transcribed Date/Time: 10/01/20 5:03 pm Vital Signs Most recent to oldest [Reference Range]: 1 2 3 Height 168 cm (10/05/20 4:23 PM) 168 cm (10/05/20 11:18 AM) 168 cm (10/05/20 7:48 AM) Weight 117.5 kg (10/04/20 9:25 PM) 113.5 kg (10/02/20 9:44 AM) 105 kg (10/02/20 7:49 AM) Oxygen Saturation [94-100 %] 91 % *L* (10/07/20 3:00 PM) 91 % *L* (10/07/20 2:00 PM) 94 % (10/07/20 1:00 PM) Pulse Rate [55-90 bpm] 84 bpm (10/04/20 5:08 PM) 83 bpm (10/04/20 2:55 PM) 95 bpm *H* (10/04/20 12:30 PM) Body Mass Index [18.5-24.99] 40.21 *>HHI* (10/02/20 9:44 AM) 37.2 *>HHI* (10/02/20 7:49 AM) 37.2 *>HHI* (10/02/20 2:40 AM) Blood Pressure [90-138/55-84 mm Hg] 125/76mm Hg (10/07/20 10:00 AM) 125/76mm Hg (10/07/20 9:00 AM) 122/76mm Hg (10/07/20 8:00 AM) Respiratory Rate [16-30 br/min] 18 br/min (10/07/20 5:21 PM) 18 br/min (10/07/20 4:56 PM) 18 br/min (10/07/20 8:56 AM) Temperature [96.8-100.4 DegF] 98.4 DegF (10/07/20 12:00 PM) 97.7 DegF (10/07/20 8:00 AM) 97.6 DegF (10/07/20 4:00 AM) Liters per Minute 1 L/min (10/07/20 5:00 AM) 1 L/min (10/07/20 4:00 AM) 1 L/min (10/07/20 3:00 AM) Mode of Delivery (Oxygen) Room air (10/07/20 3:00 PM) Room air (10/07/20 2:00 PM) Room air (10/07/20 1:00 PM) Blood pressure sites Arm, left (10/04/20 7:00 PM) Arm, right (10/04/20 5:08 PM) Arm, left (10/04/20 2:55 PM) Temperature Route Temporal (10/07/20 12:00 PM) Temporal (10/07/20 8:00 AM) Temporal (10/07/20 4:00 AM) Dry Weight 113.5 kg (10/02/20 9:44 AM) 105 kg (10/02/20 7:49 AM) 105 kg (10/02/20 2:40 AM) Weight Obtained Via Bed scale (10/04/20 9:25 PM) Standing scale (10/02/20 9:44 AM) Social History Social History Type Response Smoking Status Never smoker entered on: 06/08/16 Sex Medical Equipment Implanted Date:04/26/20Target Site:Foot Description Quantity MRI Company Model Bone Putty DBM, AlloSync, 2.5 ml, Human Allograft 1 [employer] Unknown SURAJ:No Information Assigning Authority: FDA INJ AUGMENT BONE GRAFT 1.5ML - WRGT ([id number]) 1 [employer] Unknown SURAJ:No Information Assigning Authority: FDA
--- OUTSIDE RECORDS SUMMARY | 2024-03-11 08:43 | XMS_ITS | Continuity of Care Document ---
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 Start Date: 10/01/20 Status: Ordered gabapentin 300 mg oral capsule 300 mg, 1, capsule, By Mouth, 3 times a day, Refills 0, Maintenance, 06/08/16 10:04:10 Start Date: 06/08/16 Status: Ordered HumaLOG KwikPen (Concentrated) 200 units/mL subcutaneous solution See Instructions, per sliding scale ranging 8-32 units/meal or approx max 90 units daily.1mo., # 45mL, 12 Refills, Maintenance, 10/18/17 11:11:42 Start Date: 10/18/17 Status: Ordered lisinopril 5 mg oral tablet 5 mg, 1, tablet, By Mouth, Daily, # 30 tablet, Refills 0, Maintenance, 11/06/23 11:34:00 EST, Partial fill upon patient request if the prescription is for a schedule II opioid drug. Start Date: 11/06/23 Status: Ordered Mounjaro 2.5 mg/0.5 mL subcutaneous solution = 2.5 mg, Subcutaneous Injection, Every week, rotate injection sites, # 4 each, 0 Refills, Maintenance, 11/06/23 11:30:00 EST, Solution, Partial fill upon patient request if the prescription is for aschedule II opioid drug. Start Date: 11/06/23 Status: Ordered One Touch Delica Lancets See [...] Compound Start Date: 10/19/17 Status: Ordered Pen Dorena, 32 G x 4 mm BD Ultra Fine III See instructions, # 150 each, Refills 12, Tot. Refills 12, Maintenance, 5 daily inejctions (3 with humalog, 2 with basaglar), 10/18/17 11:08:34, increased, Compound Start Date: 10/18/17 Stop Date: 12/31/20 Status: Ordered Repatha Subcutaneous Infusion, Every 14 days, 0 Refills, Maintenance, 11/06/23 11:29:00 EST, Partial fill upon patient request if the prescription is for a schedule II opioid drug. Start Date: 11/06/23 Status: Ordered Rolling walker Rolling walker, See Instructions, # 1 each, Refills 0, Tot. Refills 0, Maintenance, Please dispenserolling walker for assistance in ambulation, 07/24/18 12:32:21 EDT, Compound Start Date: 07/24/18 Status: Ordered Trazodone = 50 mg, By Mouth, Daily at bedtime, 0 Refills, Maintenance, 04/20/20 16:28:00 EDT Start Date: 04/20/20 Status: Ordered Tylenol Extra Strength 500 mg oral tablet 2 tablet = 1,000 mg, By Mouth, 3 times a day, PRN as needed for pain, # 90 tablet, 0 Refills, Maintenance, 04/27/20 6:48:00 EDT, Tablet Start Date: 04/27/20 Status: Ordered Problem List Condition Confirmation Course Effective Dates Status H ealth Status Informant Essential hypertension Confirmed Active Sleep-disordered breathing Confirmed Active GERD (gastroesophageal reflux disease) Confirmed Active Hyperlipidemia Confirmed Active Depression with anxiety Confirmed Active Obesity Confirmed Active Peripheral vascular disease Confirmed Active Severe obesity Confirmed Active Type 2 diabetes mellitus Confirmed Active Vital Signs Most recent to oldest [Reference Range]: 1 2 3 Height 165.1 cm (11/06/23 10:00 AM) Weight 117.2 kg (11/06/23 10:00 AM) Oxygen Saturation [94-100 %] 97 % (11/06/23 3:45 PM) 96 % (11/06/23 3:15 PM) 94 % (11/06/23 3:00 PM) Pulse Rate [55-90 bpm] 82 bpm (11/06/23 10:00 AM) Body Mass Index [18.5-24.99 kg/m2] 43 kg/m2 *>HHI* (11/06/23 10:00 AM) Blood Pressure [90-138/55-84 mm Hg] 157/79mm Hg *H* (11/06/23 3:45 PM) 156/125mm Hg *H* (11/06/23 3:15 PM) 146/75mm Hg *H* (11/06/23 3:00 PM) Respiratory Rate [16-30 br/min] 14 br/min *L* (11/06/23 3:45 PM) 16 br/min (11/06/23 3:15 PM) 11 br/min *L* (11/06/23 3:00 PM) Temperature [96.8-100.4 DegF] 97.5 DegF (11/06/23 10:00 AM) Mode of Delivery (Oxygen) Room air (11/06/23 3:45 PM) Room air (11/06/23 3:15 PM) Room air (11/06/23 3:00 PM) Blood pressure sites Arm, left (11/06/23 10:00 AM) Temperature Route Temporal (11/06/23 10:00 AM) Dry Weight 117.2 kg (11/06/23 10:00 AM) Social History Social History Type Response Smoking Status Never smoker entered on: 06/08/16 Sex Implantable Device List Procedure Provider Procedure Date Device Type Site Reconstruction Charcot Foot Elan Almanzar MD 04/26/20 Unknown Foot Device Identifier Serial Number Lot or Batch Number Manufacturing Date Expiration Date Distinct Identification Code MRI Safety Implantable Status Assigning Authority Unknown Unknown [id number] Unknown 08/30/21 Unknown Unknown Active Un known Procedure Provider Procedure Date Device Type Site Reconstruction Charcot Foot Elan Almanzar MD 04/26/20 Unknown Foot Device Identifier Serial Number Lot or Batch Number Manufacturing Date Expiration Date Distinct Identification Code MRI Safety Implantable Status Assigning Authority Unknown [id number] Unknown 11/28/21 Unknown Unknown Active Unkno wn Cardiac catheterization study * Event Display: Cardiac Hearing Aid Consultant Report Authored Date: Cardiac Diagnostic Report Demographics Patient Name KATHARINE BREWER Gender Female [employer] Room Number [id number] Height 65 inches Date of 1965 Weight 258.38 pounds Age 58 year(s) BSA 2.21 m2 Accession Number [id number] BMI 43 kg/m2 Referring Physician Ashok Robison Date of Study 11/06/2023 Performing Physician Dylan Espinoza MD Fellow Interventional Physician Procedure Procedure Type Diagnostic procedure:Coronary Angiography with [facility] ACC Diagnostic Catheterization Status:Elective Indications Indications: Shortness of breath. Clinical History Admission Medications + +------+--------+ + + +---------+ !Medication !Dosage!Times !Last !Last !Administered !Comments ! ! ! !Per Day !Delivery !Delivery ! ! ! ! ! ! !Date !Time ! ! ! + +------+--------+ + + +---------+ !Statin (any) ! ! ! ! ! ! ! + +------+--------+ + + +---------+ !YARED Inhibitor! ! ! ! ! ! ! !(any) ! ! ! ! ! ! ! + +------+--------+ + + +---------+ Clinical Evaluation Leading to Procedure - The patient's CAD presentation was assessed as: Stable angina. - The patient's anginal syndrome during the past two weeks was assessed as: Class II according to the [place] Cardiovascular Society Classification System (CCS). Pharma Nuclear study showed Positive results with Intermediate ischemic risk. ACC Risk Factors The patient risk factors include:obesity, physical activity, treated and uncontrolled hypercholesterolemia, treated and uncontrolled hypertension, insulin-treated diabetes mellitus, last creatinine: 1.4 mg/dl, creatinine clearance: 82.03 ml/min and dyslipidemia. Additional Clinical History:58-year female back in history of diabetes, hypertension and hyperlipidemia who recently had a pneumonia and in the same setting had a type II RI. Subsequent to that she was seen in the office and underwent nuclear perfusion imaging which showed anterior perfusion defect. She has been experiencing dyspnea on exertion. She has been referred to us for diagnostic angiography. Procedure Data Procedure Date Date: 11/06/2023Start: 13:15End: 13:32 The procedure was explained in detail to the patient. Risks, complications and alternative treatments were reviewed. Written consent was obtained. Entry Locations - Retrograde Percutaneous access was performed through the Right Radial artery (Primary location). A 6 Fr sheath was inserted. Hemostasis was successfully obtained using TR Band. Procedure Medications - Versed (Midazolam) I.V. 1 mg. - Fentanyl I.V. 50 mcg. - Lidocaine 2% S.C. Right Wrist 3 ml. - Nitroglycerin I.A. 200 mcg. - Heparin I.V. 9000 units. - 0.9NS I.V. bolus 250 ml. - Versed (Midazolam) I.V. 0.5 mg. - Fentanyl I.V. 25 mcg. Sedation: My intra-service moderate sedation time was: from 1306 to 1327. Refer to procedural log for detailed chronological information. Contrast Material - Omnipaque 25 ml Diagnostic Catheters - AOptitorque 5F 100 cm Radial TIG 1was used for: Left heart catheterization. - AOptitorque 5F 100 cm Radial TIG 1was used for: Right coronary angiography. - AOptitorque 5F 100 cm Radial TIG 1was used for: Left coronary angiography. Fluoroscopy Time: Diagnostic: 1:13 minutes. Total: 1:13 minutes. Fluoroscopy Dose: Diagnostic: 190 mGy. Total: 190 mGy. Dose Area Product:Diagnostic: 22184 mGy/cm2. Total: 83318 mGy/cm2. Procedure Narrative We accessed the right radial artery using a 6 [place] slender sheath. We crossed into LV and recorded LVEDP and perform a pullback gradient. Diagnostic angiography with a 5 [place] Lancaster catheter. Hemostasis with a regular TR band. Angiographic Findings Cardiac Arteries and Lesion Findings LMCA: Normal. LAD: Mild disease proximal LAD. Mild disease distal LAD. LCx: Minimal luminal irregularities. RCA: Normal. Hemodynamics Condition: Rest O2 Consumption: Estimated: 300.56Heart Rate: 83 bpm Pressures (mmHg) +-----+ + !Site !Pressure ! +-----+ + !LV !99/6 ,10 ! +-----+ + !AO !119/58 (85)! +-----+ + !LV !106/2 ,12 ! +-----+ + !AO !105/65 (83)! +-----+ + Valve Gradients and Areas +------+----+----+----+-----+----+------+ !Valve !Peak!Mean!Area!Index!Flow!Source! +------+----+----+----+-----+----+------+ !Aortic!0 !0 ! ! ! ! ! +------+----+----+----+-----+----+------+ !Aortic!0 !0 ! ! ! ! ! +------+----+----+----+-----+----+------+ Shunts Oxygen Values O2 Capacity 148.24 O2 Consumption 300.56 Interventional Procedure Conclusions Diagnostic Summary 58-year-old female here for diagnostic angiography for abnormal nuclear perfusion imaging. She has been experiencing dyspnea on exertion. Hemodynamics: Normal systemic pressures. Normal LVEDP. There is no gradient across aortic valve on pullback. Coronary anatomy: Right dominant circulation. Mild disease proximal and distal LAD. No significant disease in the circumflex artery. Diagnostic Recommendations Aggressive secondary risk factor modification according to ATP III guidelines. Consider evaluation for non-cardiac causes of symptoms. Signatures * Event Display: Cardiac Hearing Aid Consultant Report Authored Date: Note * Event Display: Hemodynamic Procedure Report Authored Date: * Debby Hooker RN: PERFORM Event Display: Discharge/Transfer Note Hospital Authored Date: [id number] Nursing Discharge Note Entered On: 11/06/2023 17:34 EST Performed On: 11/06/2023 16:55 EST by Debby Hooker RN Nursing Discharge Note 2 Discharge Time : 11/06/2023 16:55 EST Discharge Level of Care at Discharge : Home/Custodial/Foster Care Patient Left Unit Via : Wheelchair Patient Accompanied Off Unit with : Responsible adult DC Instructions Provided & Signed by Pt : Yes Patient Understands D/C Instructions : Yes Patient Instructions Discharge Signed : Yes Did Pt have Specialty Bed or Wound Vac : No Debby Hooker RN - 11/06/2023 17:33 EST * Debby Hooker RN: PERFORM, MODIFY Event Display: Patient Education/Instruction Authored Date: Inpatient Adult Discharge Instructions. [address] [id number] Name: EWELINA ALCANTAR : 1965?? Visit: 11/06/2023 09:45?? Current Date: 11/06/2023 16:10 ?? Account: [id number]?? Inpatient Adult Discharge Instructions We would like to thank you for allowing us to assist you with your healthcare needs. The following includes patient education materials and information regarding your injury/illness. Our entire staffstrives to provide an excellent experience for our patients and their families. PLEASE ENSURE YOU FOLLOW-UP PER THE INSTRUCTIONS BELOW! ?? YOUR OPINION IS IMPORTANT TO US! Please complete the survey you may receive by mail or email. Your feedback will be used to make improvements to the healthcare experiences of our patients and their families. Surveys are administered by [employer] ?? If further treatment with your primary care physician or another doctor is recommended, it is important for you to keep the appointment. Call your primary care physician or return to the Emergency Department immediately if your condition worsens, fails to improve, or new symptoms develop. If you need to find a doctor, you can call [facility] for a referral at [phone] or toll free at [phone] or log in to [email or web address].. ?? [facility], in keeping with [facility] guidance, no longer requires face masks for staff, patientsor visitors in most situations. Similiar to time spent indoors at other locations, there is the chance that you were exposed to repiratory viruses during your time with us (such as flu or COVID-19). If you develop symptoms concerning for a viral respiratory infection, please seek testing (and treatment if indicated) from your medical provider or home test kit. ?? You can view and manage your care through the patient portal or by using a health care jim of your choosing. [employer] is a website that allows you to securely view your medical information including your hospital discharge summary, office visit summaries, medications and follow-up visits. You can also request appointments, renew medications, and request access to your medical information using a health care jim of your choosing, or just ask a question. You can enroll at [email or web address] or register during your next office visit. You have been discharged from [facility], Patient Care Unit: CARE??. If you have any questions regarding these instructions, including results of studies pending, afteryou leave, please call us and we will be happy to assist you 23/04. [facility] Nursing Unit Direct Phone Number, for 23/04 contact and results of studies pending CARE [address] [place] [address] Your Care Team Attending Physician Dylan Espinoza MD?? Consulting Providers Dylan Espinoza MD?? Discharging Providers Dylan Espinoza MD Tests Performed Below is a partial list of the tests performed during your hospitalization. You may have had other tests and procedures not included in this list. Please discuss all test results with your provider. Basic Metabolic Panel GLUCOSE POC K Level?-- Results Pending -- Type and Screen You will be contacted within 72 hours with your results. Potassium Level (K Level)?? Primary Care Provider Raji HERNANDEZ , Joel Cope? Discharge Vitals Respiratory Rate:??14 br/min??Low Systolic Blood Pressure:??157 mm Hg??High Diastolic Blood Pressure: 79 mm Hg Oxygen Saturation: 97 % Studies Pending All studies ordered during this hospital stay have been completed unless listed below. Please discuss all pending results with your provider listed above in these instructions. ?? Potassium Level (K Level)?? What to do next Instructions From Your Doctor ?? Orders?? Daystay Protocol, ??11/06/23 14:04:00 EST?? You Need to Schedule the Following Appointments Follow Up with??Melvin ALMARAZ, Ricki Why: As previously arranged Where: ?? Discharge Medications EWELINA ALCANTAR :1965 Visit Date:11/06/2023 Medications: Please continue your medications until treatment is completed or stopped by your provider. Medications not listed below should be discontinued. Discuss any questions related to medications with your provider. What How Much When Why Instructions Next Dose Unchanged Acetaminophen (Tylenol Extra Strength 500 mg oral tablet) 2 tab(s) Oral 3 times a day as needed for as needed for pain as prescribed Unchanged Aspirin (aspirin 81 mg oral tablet) 1 tab(s) Oral Daily as prescribed Unchanged Atorvastatin (atorvastatin 80 mg oral tablet) 1 tab(s) Oral Daily at Bedtime as prescribed Unchanged BuPROpion (buPROPion 150 mg/ 24 hours (XL) oral tablet, extended release) 2 tab(s) Oral Daily as prescribed Unchanged Durable Medical Equipment (One Touch Delica Lancets) See instructions use to check BG 4 x daily. Dx 11.9 ?? Unchanged Durable Medical Equipment (OneTouch Verio Test Strips) See instructions use to check BG 4 x daily. Dx 11.9 ?? Unchanged Durable Medical Equipment (Pen Dorena, 32 G x 4 mm BD Ultra Fine III) See instructions Duration: 90 Days 5 daily inejctions (3 with humalog, 2 with basaglar) ?? Unchanged Durable Medical Equipment (Rolling walker) See instructions Please dispense rolling walker for assistance in ambulation ?? Unchanged evolocumab (Repatha) Subcutaneous Infusion Every 14 days as prescribed Unchanged Gabapentin (gabapentin 300 mg oral capsule) 1 capsule Oral 3 times a day as prescribed Unchanged Insulin Glargine (Basaglar KwikPen 100 units/ mL subcutaneous solution) 50 unit(s) Subcutaneous Infusion Daily at Bedtime Type 2 diabetes mellitus Type 2 diabetes mellitus as prescribed Unchanged Insulin Lispro (HumaLOG KwikPen (Concentrated) 200 units/ mL subcutaneous solution) See instructions Type 2 diabetes mellitus per sliding scale ranging 8-32 units/ meal or approx max 90 units daily.1mo. ?? as prescribed Unchanged Lisinopril (lisinopril 5 mg oral tablet) 1 tab(s) Oral Daily as prescribed Unchanged tirzepatide (Mounjaro 2.5 mg/ 0.5 mL subcutaneous solution) 2.5 Milligram Subcutaneous Injection Every week rotate injection sites ?? as prescribed Unchanged Trazodone 50 Milligram Oral Daily at Bedtime as prescribed Prescription Given During Visit No new medications prescribed at time of discharge.?? Laboratory Results Below is a partial list of the most recent Laboratory test results done prior to this discharge. You may have had other tests and procedures not included in this list. Please discuss all test resultswith your provider. Basic Metabolic Panel (11/06/2023) ???Sodium - 141 mmol/L???Potassium - 5.7 mmol/L???Chloride - 108 mmol/L???Bicarbonate Level - 24 mmol/L???Anion Gap - 9???Glucose Level - 140 mg/dL???BUN - 29 mg/dL???Creatinine-Blood - 1.4 mg/dL???Estimated GFR Creatinine - 43 ML/MIN/1.73 M2???Calcium - 9.3 mg/dL GLUCOSE POC (11/06/2023) ???Glucose, POC - 148 mg/dL Type and Screen (11/06/2023) ???Blood Type - O Negative???Antibody Screen - Negative Allergies (NKA means No Known Allergies) NKA Problems Active Problems??(8) Depression with anxiety?? Essential hypertension?? GERD (gastroesophageal reflux disease)?? Hyperlipidemia?? Obesity?? Peripheral vascular disease?? Sleep-disordered breathing?? Type 2 diabetes mellitus?? Education Materials Below is the list of Educational Leaflet Providered with your Discharge Instructions. Surgery Radial Cath Approach Discharge Instructions?? Procedural Sedation?? Valuables and Belongings I fully understand and agree that [facility] accepts no responsibility for all my personal property including clothing, toilet articles, radios, jewelry, dentures, hearing aids, rings, money, or any other property that is in my possession or is brought to me after admission. I understand certain valuables may be placed in a hospital safe for a short period of time. I understand that the hospital is not liable for loss or damage due to accident, fire, or other natural occurrence while said property is in the safe. I accept full responsibility for any personal property that I keep with me, and will not hold the hospital responsible in case of loss or disappearance. I acknowledge that i have been encouraged to send valuables and belongings home. ? Other Discharge Information ? Pulmonary Rehab Status?? Pulmonary Rehab Discharge Status?? Respiratory Rate:??14 br/min??Low ? Common Emergency Awareness Tips IS IT A STROKE? Act FAST and Check for these signs: FACE Does the face look uneven? ARM Does one arm drift down? SPEECH Does their speech sound strange? TIME Call at any sign of stroke ?? Heart Attack Signs Chest discomfort: Most heart attacks involve discomfort in the center of the chest and lasts more than a few minutes, or goes away and comes back. It can feel like uncomfortable pressure, squeezing, fullness or pain. Discomfort in upper body: Symptoms can include pain or discomfort in one or both arms, back, neck, jaw or stomach. Shortness of breath: With or without discomfort. Other signs: Breaking out in a cold sweat, nausea, or lightheaded. Remember, MINUTES DO MATTER. If you experience any of these heart attack warning signs, call to get immediate medical attention! ?? Smoking can increase your chances of developing chronic health problems and can cause harmful effects to other family members in your house. If you smoke, you are strongly encouraged to quit. Please call [facility] [employer] Link at [phone] or [phone] ([phone]) or log in to [email or web address] for referrals to smoking cessation programs. ?? 988 Suicide & Crisis Lifeline is available 23/04 if you or someone you know needs to find a reason to keep living. By calling 754 you'll be connected to a skilled, trained counselor at a crisis center in your area. INPATIENT DISCHARGE INSTRUCTIONS SIGNATURE PAGE EWELINA ALCANTAR Location:[facility] Registration Date and Time:11/06/2023 09:45 EST Primary Care Physician: Joel Alegria NP, Attending Physician: Alexis ALMARAZ, Dylan, I EWELINA ALCANTAR, have received the above patient education materials/instructions and have verbalized understanding. If ambulance or transport services are being used I further acknowledge being givena choice of service. ?? If you need to contact me, please call me at this number: . Patient/Tile Decorator Name: Patient/Tile Decorator Signature: Relationship to Patient: Witness Name/Signature: Date: * Debby Hooker RN: PERFORM Event Display: Patient Education Leaflets Authored Date: Surgery Radial Cath Approach Discharge Instructions ?? 278 Radial Cath Approach Discharge Instructions ?? Activity Take it easy the rest of the day. Limit your activity on the affected side.?? Act as if your arm is broken for 24 hours. No lifting with affected arm for 24 hours. No pushing or pulling with the affected arm. Do not reach or lift with the affected arm. Do not place excessive pressure on the wrist. ?? Precautions Due to intravenous sedation: It is recommended that someone stay with you for the first night after your procedure. Do not drive or operate hazardous machinery for 24 hours. Do not make legal decisions for 24 hours. Avoid alcohol for 24 hours. Unless directed otherwise, keep yourself hydrated. ?? Dressing/Incision Care You may remove the dressing 24 hours after your procedure. Replace with band aid for an additional 24 hours. You may shower and cleanse the site with soap & water then pat dry. Avoid submersion of site in water x 5 days. Cover the with a clean band aid daily until site is healed. If the band aid becomes soiled, replacewith a clean new one. Do not apply any ointments, lotions, gels or powders to the puncture site. ?? When to contact your doctor If any of the following signs of infection occur: Fever greater than 100 degrees F Increased pain Drainage, redness or warmth at puncture site Tingling of the fingers and hand that last longer than 3 days Slight bubble of blood or bleeding from site: apply manual pressure and notify your doctor ?? Emergency situations: Bleeding from the site that will not stop: apply manual pressure and notify your doctor Profuse bleeding streaming from the puncture site: Apply manual pressure and notify your doctor immediately If your hand becomes bluish, cold to the touch, or painful, notify your doctor immediately or go toEmergency Department. For these emergent situations: If unable to contact your physician, call 911. ?? * Debby Hooker RN: PERFORM Event Display: Patient Education Leaflets Authored Date: [id number] Procedural Sedation ?? [address] Procedural Sedation Procedural sedation is medicine to ease discomfort, pain, and anxiety during a procedure. The medicine is often given through an IV (intravenous) line in your arm or hand. In some cases, the medicinemay be taken by mouth or inhaled. While you are under sedation, you will likely be awake. But you may not remember it afterward. Why procedural sedation is used Sedation is used for many types of procedures. The goal is to reduce pain, anxiety, and stressful memories of a procedure. It can help your healthcare provider treat you. For example, having a brokenbone fixed may be easier if you feel relaxed. This type of sedation is used only for short, basic procedures. It's not used for complex surgery. Some procedures that use this type of sedation include: ??? Dental surgery ??? Breast biopsy, to take a sample of breast tissue ??? Endoscopy, to look at gastrointestinal problems ??? Bronchoscopy, tocheck for lung problems ??? Bone or joint realignment, to fix a broken bone or dislocated joint ???Minor foot or skin surgery ??? Electrical cardioversion, to restore a normal heart rhythm ??? Lumbar puncture, to check for neurological disease ?? Risks of procedural sedation Risks and possible side effects include: ??? Headache ??? Nausea and vomiting ??? Bad memories of the procedure ??? Slowed breathing ??? Changes in heart rate and blood pressure (rare) ??? Inhalation of stomach contents into your lungs (rare) Side effects will likely go away shortly after the procedure. Your healthcare team will watch your heart rate and breathing during and after your sedation. This is to help prevent problems. Your own risks may vary. They can be based on your age and your overall health. They also depend onthe type of sedation you are given. Talk with your healthcare provider about the risks that apply most to you. ?? Getting ready for procedural sedation Talk with your provider about how to get ready for your procedure. Tell them about all the medicines you take. This includes [id number] medicines, such as ibuprofen. It also includes vitamins, herbs, and other supplements. You may need to stop taking some medicines before the procedure, such as blood thinners and aspirin. If you smoke, you should stop. This is to lessen the chance of a lungproblem. Talk with your healthcare provider if you need help to stop smoking. Tell your provider if you: ??? Have had any problems in the past with sedation or anesthesia ??? Have had any recent changes in your health, such as an infection or fever ??? Are or think you could be Also: ??? Follow any directions you are given for not eating or drinking before procedure. ??? Ask a family member or friend to take you home after the procedure. You can???t drive on the day you have sedation. ??? Don't make any important decisions, such as financial or legal, on the day after youhave sedation. ??? Follow all other instructions from your provider. ?? During your procedural sedation You may have your procedure in a hospital or a clinic. Sedation is done by a trained healthcare provider. In general, you can expect the following: ??? You will be given medicine through an IV line in your arm or hand. Or you may get a shot or take it by mouth. Or you may inhale it through a mask. ??? If you have medicine through an IV, you may feel the effects very quickly. You will start to feel relaxed and drowsy. ??? During the procedure, your heart rate, breathing, and blood pressure will be closely watched. Your breathing and blood pressure may decrease a little. But you will likely notneed help with your breathing. You may get a little extra oxygen. This is done through a mask or some soft plastic prongs under your nose. ??? You will likely be awake the whole time. If you do fall asleep, you should be easy to wake up, if needed. You should feel little or no pain. ??? When your procedure is over, the sedative medicine will be stopped. ?? After your procedural sedation You will start to feel more awake and aware. But you will likely be drowsy for a while afterward. You will be closely watched as you become more alert. You may have a faint memory of the procedure. Or you may not remember it at all. You should be able to go home within 1 to 2 hours after your procedure. Plan to have someone stay with you for a few hours. Side effects, such as headache and nausea, may go away quickly. Tell your healthcare provider if they continue. Don???t drive, operate dangerous machines, or make any important business or personal decisions during the next 24 hours. Be sure to follow all after-care directions. ?? When to call your healthcare provider Have someone call your healthcare provider right away if any of the following occur: ??? Drowsinessthat gets worse ??? Weakness or dizziness that gets worse ??? Repeated vomiting ??? Severe or ongoing pain from the procedure, not relieved by the pain medicine ??? Fever of 100.4?? F (38??C) or higher, or as directed by your healthcare provider ??? New rash ?? Call 911 Have someone call 911 if any of the following occur: ??? Shortness of breath ??? Chest pain ??? Loss of consciousness or you can't be awakened ?? Last Reviewed Date: 2022 ?? 1803-2843 [employer]. All rights reserved. This information is not intended as a substitute for professional medical care. Always follow your healthcare professional's instructions. ?? Patient Care team information Care Team Personnel Name: Geovanni Fitch RN Position: [facility] RN Member Role: Primary Care Nurse Name: Mai Lambert MA Position: [facility] Member Role: Lifetime Consulting Physician Name: Pennie Goodwin RN Position: [facility] RN Member Role: Primary Care Nurse Name: Steph Elias RN Position: [facility] RN Member Role: Primary Care Nurse Name: Joel Alegria NP Position: Reference Physician Member Role: PCP Address: Address: [address] [place], [place] [address] Name: Rhina Rodas Position: [facility] Outreach Member Role: Lifetime Consulting Physician Name: Ines Spain RN Position: [facility] RN Member Role: Primary Care Nurse Name: Gian Painter RN Position: [facility] RN Member Role: Primary Care Nurse Name: Tamica Link Position: [facility] Outreach Member Role: Lifetime Consulting Physician Name: Savana Hardy RN Position: [facility] [employer] Supervisor Member Role: Primary Care Nurse Name: Ewelina Ryan Position: [facility] Outreach Member Role: Lifetime Consulting Physician Name: Deborah Acosta RN Position: [facility] Onco RN Member Role: Primary Care Nurse Care Team Related Persons Name: SARWATRESHMAJanneth JAYMIE Address: [address] [address]
--- OUTSIDE RECORDS SUMMARY | 2024-03-11 08:43 | XMS_ITS | Continuity of Care Document ---
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 Name Role Phone Maddie Degroot MD Primary Care Physician [place] [facility] [place] 05/15/[address] [address]- [facility] Encounter Diagnosis Foot pain(Final) - 05/14/20 Discharge Disposition: A-D/C Home Attending Physician: Chau Quiroga MD Admitting Physician: Chau Quiroga MD Referring Physician: Not on Staff, Referring MD Allergies, Adverse Reactions, Alerts Substance Reaction [...] mL, 12 Refills, Maintenance, 10/18/17 11:11:34 EST, [facility]/pharmacy #[id number] Start Date: 10/18/17 Status: Ordered gabapentin 300 mg oral capsule 300 mg, 1, capsule, By Mouth, 3 times a day, Refills 0, Maintenance, 06/08/16 10:04:10 Start Date: 06/08/16 Status: Ordered HumaLOG KwikPen (Concentrated) 200 units/mL subcutaneous solution See Instructions, per sliding scale ranging 8-32 units/meal or approx max 90 units daily.1mo., # 45mL, 12 Refills, Maintenance, 10/18/17 11:11:42 Start Date: 10/18/17 Status: Ordered Keflex monohydrate 500 mg oral capsule = 500 mg, By Mouth, 4 times a day, # 20 capsule, 0 Refills, Maintenance, 05/15/20 4:42:00 EDT, [facility]/pharmacy #[id number], 165.1, cm, 04/29/20 7:45:00 EDT, Height, 105, kg, 07/17/18 11:16:00 EDT, Dry Weight Start Date: 05/15/20 Status: Ordered Lantus Inj Subcutaneous Infusion, 0 Refills, Maintenance, 10/28/18 15:25:19 EST Start Date: 10/28/18 Status: Ordered lisinopril 5 mg oral tablet 5 mg, 1, tablet, By Mouth, Daily, # 30 tablet, Refills 0, Maintenance, 10/18/18 15:41:53 EST Start Date: 10/18/18 Status: Ordered Lovenox 40 mg/0.4 mL injectable solution 0.4 mL = 40 mg, Subcutaneous Injection, Daily, # 12 mL, 0 Refills, Maintenance, 04/27/20 6:48:00 EDT, Solution Start Date: 04/27/20 Stop Date: 05/27/20 Status: Ordered metoprolol 25 mg oral tablet 12.5 mg, By Mouth, 2 times a day before breakfast and dinne, # 30 tablet, Refills 0, Tot. Refills 0, Maintenance, 07/24/18 13:53:41 EDT, Route to Pharmacy Electronically, [id number], [facility] Start Date: 07/24/18 Status: Ordered Multivitamin Tablet By Mouth, Daily, 0 Refills, Maintenance, 06/08/16 10:03:35 Start Date: 06/08/16 Status: Ordered One Touch [...] 14:31:52, Compound Start Date: 10/19/17 Status: Ordered oxyCODONE 5 mg oral tablet See Instructions, PRN, 1-2 tablets By Mouth Every 4-6 hours, # 30 tablet, Refills 0, Tot. Refills 0, Maintenance, for pain, 04/27/20 6:48:00 EDT, Instructions Replace Required Details, Do Not Route, Partial fill upon patient request Start Date: 04/27/20 Status: Ordered Pen [place], 32 G x 4 mm BD Ultra [...] EDT, Tablet Start Date: 04/27/20 Status: Ordered Vitamin D3 5000 intl units oral tablet 1 tablet = 5,000 International_Units, By Mouth, Daily, # 30 tablet, 0 Refills, Maintenance, 04/27/20 6:48:00 EDT, Tablet Start Date: 04/27/20 Status: Ordered Results Orders for Microbiology Reports Name Date Blood Culture 05/14/20 Microbiology Reports TEST:Blood Culture STATUS:Unauthenticated BODY SITE: SOURCE:Blood COLLECTED DATE/TIME:05/14/20 3:52 PM Blood Culture SPECIMEN DESCRIPTION : BLOOD LEFT HAND SPECIAL REQUESTS : NONE CULTURE : NO GROWTH AFTER 24 HOURS REPORT STATUS : PRELIMINARY REPORT Radiology Reports * Exam Date Time Procedure Performing Provider Status 05/14/20 5:39 PM Foot Min 3 Views Left James Reyes; Auth (Verified) Notes: (Foot Min 3 Views Left) Reason For Exam: with Pain;Trauma RESULT: Foot Min 3 Views Left Foot Min 3 Views Left, 3 views Hx of Present Illness: Leg Pain Weakness; Reason: Trauma; with Pain; Clinical Question(s): Fracture COMPARISON: 03/02/2017 FINDINGS: No acute fracture or dislocation. Postsurgical changes consistent with prior fracture fixation demonstrated. An obliquely orientated fixating screw courses through the calcaneus and its without evidence of surrounding lucency. Additional fixation screw courses from the talus to the navicular, medial cuneiform, and first metatarsal and appears well-positioned without surrounding lucency. Additional fixating plate is seen in the lateral aspect of the midfoot. Just deep to the fixating plate there is mild lucency of the cuboid and lateral cuneiform with slight osseous irregularity. Joint space narrowing throughout the mid foot and ankle mortise. Mild plantar calcaneal spurring. Soft tissue swelling medial aspect of the midfoot with dystrophic calcifications. There is also soft tissue swelling along the dorsal aspect of the forefoot. IMPRESSION: 1. Soft tissue swelling medial aspect of mid foot and dorsal aspect of forefoot without acute fracture or dislocation identified. 2. Postsurgical changes as described above. There is slight lucency and osseous irregularity involving the cuboid and lateral cuneiform just deep to the fixating bracket without definite cortical erosion to suggest osteomyelitis. If there is any concern for osteomyelitis consider nuclear medicine bone scan. WSN: [id number] Ordering Physician: Tsering Evangelista Dictated By: Ck Acevedo DO Dictated Date/Time: 05/14/20 6:30 pm Reviewed By: Ck Acevedo DO Signed By: Ck Acevedo DO Signed Date/Time: 05/14/20 6:30 pm Transcribed By: MARIA ELENA Transcribed Date/Time: 05/14/20 6:26 pm * Exam Date Time Procedure Performing Provider Status 05/14/20 3:50 PM Chest Portable Baylee Reyes; Au th (Verified) Notes: (Chest Portable) Reason For Exam: Shortness of Breath RESULT: Chest Portable Chest Portable INDICATION: Shortness of Breath; Clinical Question(s): Pneumonia / Pneumonia COMPARISON: 07/05/2011 FINDINGS: LINES AND TUBES: None. LUNGS AND PLEURA: Clear lungs. Normal pulmonary vascularity. No pleural effusion. No pneumothorax. HEART, MEDIASTINUM AND ARY: Heart is normal in size. Normal mediastinal and hilar contour. BONES AND SOFT TISSUES: No acute abnormality. IMPRESSION: No evidence of acute abnormality. WSN: [id number] Ordering Physician: Tsering Evangelista Dictated By: Reji Alicea MD Dictated Date/Time: 05/14/20 3:52 pm Reviewed By: Reji Alicea MD Signed By: Reji Alicea MD Signed Date/Time: 05/14/20 3:52 pm Transcribed By: MARIA ELENA Transcribed Date/Time: 05/14/20 3:52 pm Vital Signs Most recent to oldest [Reference Range]: 1 2 3 Oxygen Saturation [94-100 %] 96 % (05/15/20 6:48 AM) 96 % (05/15/20 5:45 AM) 95 % (05/15/20 2:45 AM) Pulse Rate [55-90 bpm] 91 bpm *H* (05/15/20 6:48 AM) 93 bpm *H* (05/15/20 5:45 AM) 90 bpm (05/15/20 2:45 AM) Blood Pressure [90-138/55-84 mm Hg] 113/63mm Hg (05/15/20 6:48 AM) 112/69mm Hg (05/15/20 5:45 AM) 123/77mm Hg (05/15/20 2:45 AM) Respiratory Rate [16-30 br/min] 18 br/min (05/15/20 6:48 AM) 20 br/min (05/15/20 5:45 AM) 22 br/min (05/15/20 5:43 AM) Temperature [96.8-100.4 DegF] 98.1 DegF (05/15/20 5:45 AM) 98.6 DegF (05/15/20 12:14 AM) 98.5 DegF (05/14/20 1:16 PM) Mode of Delivery (Oxygen) Room air (05/15/20 6:48 AM) Room air (05/15/20 5:45 AM) Room air (05/15/20 2:45 AM) Blood pressure sites Arm, left (05/15/20 6:48 AM) Arm, left (05/15/20 5:45 AM) Arm, left (05/15/20 2:45 AM) Temperature Route Oral (05/15/20 5:45 AM) Oral (05/15/20 12:14 AM) Oral (05/14/20 1:16 PM) Social History Social History Type Response Smoking Status Never smoker entered on: 06/08/16 Sex Medical Equipment Implanted Date:04/26/20Target Site:Foot Description Quantity MRI Company Model Bone Putty DBM, AlloSync, 2.5 ml, Human Allograft 1 [employer] Unknown SURAJ:No Information Assigning Authority: FDA INJ AUGMENT BONE GRAFT 1.5ML - WRGT ([id number]) 1 [employer] Unknown SURAJ:No Information Assigning Authority: FDA
--- OUTSIDE RECORDS SUMMARY | 2024-03-11 08:43 | XMS_ITS | Continuity of Care Document ---
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 Name Role Phone Maddie Degroot MD Primary Care Physician Encounter [facility] Date(s): 04/26/20 - 04/29/[address] [address]- [facility] Discharge Disposition: A-D/C Home Attending Physician: Elan Almanzar MD Admitting Physician: Elan Almanzar MD Referring Physician: Elan Almanzar MD Allergies, Adverse Reactions, Alerts Substance Reaction [...] mL, 12 Refills, Maintenance, 10/18/17 11:11:34 EST, [facility]/pharmacy #[id number] Start Date: 10/18/17 Status: Ordered gabapentin [...] 10/18/17 11:11:42 Start Date: 10/18/17 Status: Ordered Lantus Inj Subcutaneous Infusion, 0 [...] 07/24/18 13:53:41 EDT, Route to Pharmacy Electronically, [id number], [facility] Start Date: 07/24/18 Status: Ordered Multivitamin [...] request Start Date: 04/27/20 Status: Ordered Pen [place], 32 G x 4 mm BD Ultra [...] EDT, Tablet Start Date: 04/27/20 Status: Ordered Vital Signs Most recent to oldest [Reference Range]: 1 2 3 Height 165.10 cm (04/29/20 7:45 AM) 165.10 cm (04/29/20 4:54 AM) 165.10 cm (04/29/20 12:09 AM) Weight 120.45 kg (04/26/20 8:24 AM) 120.45 kg (04/20/20 4:33 PM) Oxygen Saturation [94-100 %] 95 % (04/29/20 7:45 AM) 95 % (04/29/20 4:54 AM) 93 % *L* (04/29/20 12:09 AM) Pulse Rate [55-90 bpm] 94 bpm *H* (04/29/20 7:45 AM) 100 bpm *H* (04/29/20 6:08 AM) 102 bpm *H* (04/29/20 4:54 AM) Body Mass Index [18.5-24.99] 44.19 *>HHI* (04/26/20 8:24 AM) 44.19 *>HHI* (04/20/20 4:33 PM) Blood Pressure [90-138/55-84 mm Hg] 130/72mm Hg (04/29/20 7:45 AM) 146/78mm Hg *H* (04/29/20 6:08 AM) 119/79mm Hg (04/29/20 4:54 AM) Respiratory Rate [16-30 br/min] 17 br/min (04/29/20 12:00 PM) 17 br/min (04/29/20 11:06 AM) 17 br/min (04/29/20 8:48 AM) Temperature [96.8-100.4 DegF] 98.7 DegF (04/29/20 7:45 AM) 98.7 DegF (04/29/20 4:54 AM) 99.3 DegF (04/29/20 12:09 AM) Liters per Minute 2 L/min (04/26/20 4:30 PM) 4 L/min (04/26/20 1:45 PM) 4 L/min (04/26/20 1:30 PM) Mode of Delivery (Oxygen) Room air (04/29/20 7:45 AM) Room air (04/29/20 4:54 AM) Room air (04/29/20 12:09 AM) Blood pressure sites Arm, right (04/29/20 7:45 AM) Arm, left (04/29/20 4:54 AM) Arm, left (04/29/20 12:09 AM) Temperature Route Oral (04/29/20 7:45 AM) Oral (04/29/20 4:54 AM) Oral (04/29/20 12:09 AM) Weight Obtained Via Patient/family state d (04/20/20 4:33 PM) Social History Social History Type Response Smoking Status Never smoker entered on: 06/08/16 Sex Medical Equipment Implanted Date:04/26/20Target Site:Foot Description Quantity MRI Company Model Bone Putty DBM, AlloSync, 2.5 ml, Human Allograft 1 [employer] Unknown SURAJ:No Information Assigning Authority: FDA INJ AUGMENT BONE GRAFT 1.5ML - WRGT ([id number]) 1 [employer] Unknown SURAJ:No Information Assigning Authority: FDA
== END 2024-03-11 11:01 | disposition home or self-care (01) ==
LOC: HO.HMGC 08:41
PROVIDERS: PCP Nurse Practitioner Family; Visit Provider Nurse Practitioner Family
DX: E11.649 Type 2 diabetes mellitus with hypoglycemia without coma (principal); E87.5 Hyperkalemia; R31.29 Other microscopic hematuria; D64.9 Anemia, unspecified
CPT/HCPCS: 99213

== ENCOUNTER 2024-03-13 06:28 | Outpatient (REF) | payer BC, SELFPAY ==
[2024-03-13 10:29] LABS: Urine Cytology See Pathology rpt
[2024-03-13 10:31] LABS: MANUAL DIFF FLAG NO
[2024-03-13 10:39] LABS: Basophils Absolute Auto 0.1 X10*3/uL (0.0-0.2); Basophils Percent Auto 0.6 % (0-2); Eosinophils Absolute Auto 0.5 X10*3/uL (0.0-0.4); Eosinophils Percent Auto 5.1 % (0-4); Hematocrit 34.7 % (37.0-47.0); Hemoglobin 11.2 g/dl (12.0-16.0); Imm Gran Abs Auto 0.03 X10*3/uL (0.00-0.03); Imm Gran Pct Auto 0.3 % (0.0-0.4); Lymphocytes Absolute Auto 3.6 X10*3/uL (1.2-4.9); Lymphocytes Percent Auto 38.4 % (20-40); Mean Corpuscular HGB Conc 32.3 g/dl (31.0-35.0); Mean Corpuscular Hemoglobin 26.7 pg (27.0-33.0); Mean Corpuscular Volume 82.8 fL (80.0-98.0); Mean Platelet Volume 9.3 fL (9.4-12.3); Monocytes Absolute Auto 0.6 X10*3/uL (0.1-1.2); Monocytes Percent Auto 6.4 % (2-11); Neutrophils Absolute Auto 4.6 x10*3/uL (2.0-8.3); Neutrophils Percent Auto 49.2 % (45-73); Platelet Count 272 X10*3/uL (160-400); Red Blood Count 4.19 X10*6/uL (4.20-5.50); Red Cell Distribution Width 13.5 % (11.0-16.0); White Blood Count 9.3 X10*3/uL (4.8-10.8)
[2024-03-13 10:51] LABS: Alanine Aminotransferase 20 U/L (0-31); Albumin Level 3.8 g/dL (3.5-5.0); Alkaline Phosphatase 158 U/L (39-117); Anion Gap 12 (12-20); Aspartate Amino Transferase 20 U/L (5-31); Bilirubin Total 0.3 mg/dL (0.0-1.0); Blood Urea Nitrogen 30 mg/dL (9-16); Calcium 9.3 mg/dL (8.4-10.2); Carbon Dioxide 25 mmol/L (22-29); Chloride 106 mmol/L (96-108); Estimated Glomerular Filt Rate 26; Glucose Random 107 mg/dL (60-115); Iron 47 mcg/dL (30-160); Percent Iron Saturation 18 % (15-50); Potassium 4.8 mmol/L (3.3-5.1); Sodium 138 mmol/L (135-145); Total Iron Binding Capacity 268 mcg/dL (228-428); Total Protein 6.9 g/dL (6.5-8.0); Unsaturated Iron Binding 221 ug/dL
[2024-03-13 11:00] LABS: Appearance Urine Clear; Color Urine Yellow; Glucose Urine UA Negative (Negative); Leukocyte Esterase Urine Trace (Negative); Nitrite Urine Negative (Negative); PH 5.5 (5.0-9.0); UMIC TRIGGER UACC YES; Urine Blood Negative (Negative); Urine Ketones Negative (Negative); Urine Protein Trace mg/dL (Neg-Trace)
[2024-03-13 11:04] LABS: Bacteria Urine 4+ (None Seen); Hyaline Casts Urine 0-2 /LPF (0-2); RBC Urine 0-2 /HPF (0-2); Squamous Epithelial Cell Urine 0-2 /HPF (0-2); WBC Urine 0-5 /HPF (0-5)
[2024-03-13 11:09] LABS: Ferritin 74 ng/mL (10-250)
[2024-03-13 11:17] LABS: Folate 5.9 ng/mL (> or = 4.0); Vitamin B12 258 pg/mL (200-900)
== END 2024-03-13 06:29 | disposition home or self-care (01) ==
LOC: HO.HMGCLDS 06:28
PROVIDERS: PCP Nurse Practitioner Family; Visit Provider Nurse Practitioner Family
DX: E11.649 Type 2 diabetes mellitus with hypoglycemia without coma (principal); E87.5 Hyperkalemia; R31.29 Other microscopic hematuria; D64.9 Anemia, unspecified; R82.90 Unspecified abnormal findings in urine
CPT/HCPCS: 36415; 80053; 81001; 82607; 82728; 82746; 83540; 85025; 87086; 87088; 87186; 88112

== ENCOUNTER 2024-03-13 17:23 | Emergency (ER) | payer BC, SELFPAY ==
[2024-03-13 18:11] VITALS: BP 155/91; PULSE 104; RESP 17; TEMP 36.2; O2SAT 98; BMI 44.3
--- NOTE | 2024-03-13 18:13 | ED_ITS ---
HPI - General Adult General Chief complaint: Recheck/Abnormal Lab/Rx Stated complaint: abnormal labs Time Seen by Provider: 03/13/24 23:03 Source: patient Mode of arrival: ambulatory Limitations: no limitations History of Present Illness ED Provider: stephanie ORELLANA narrative: Patient's history of diabetes obesity sternal Ozempic 2 weeks ago has taken 2 shots so far last injection was last week since she been taking Ozempic been having diarrhea and nausea vomiting last diarrhea was 2 days ago patient had blood workup done as outpatient which showed elevated creatinine of 2 which has increased from her baseline of 1.3 patient does not feel drinking any fluids since started Ozempic feel full Related Data Home Medications ?Medication ?Instructions ?Recorded ?Confirmed blood-glucose sensor (Dexcom G6 #1 ea 02/28/23 02/28/24 Sensor device) blood-glucose transmitter (Dexcom #1 ea 02/28/23 02/28/24 G6 Transmitter device) bupropion HCl 300 mg 24 hr tablet, 300 mg PO DAILY 02/28/23 03/07/24 extended release gabapentin 300 mg capsule 300 mg PO TID 02/28/23 03/07/24 hydroxyzine HCl 10 mg tablet 10 mg PO DAILY PRN Anxiety 02/28/23 03/07/24 hyoscyamine sulfate 0.125 mg tablet 0.125 mg PO BID PRN cramps 02/28/23 03/07/24 pantoprazole 20 mg tablet,delayed 20 mg PO DAILY@0630 02/28/23 03/07/24 release trazodone 100 mg tablet 100 mg PO BEDTIME 02/28/23 03/07/24 acetaminophen 650 mg 650 mg PO Q12H PRN Pain (Scale 07/25/23 03/07/24 tablet,extended release Score 1-3) insulin aspart 10 unit subcut TID 08/21/23 03/07/24 (niacinamide)(U-100) 100 unit/mL(3 mL) subcutaneous pen (Fiasp FlexTouch U-100 Insulin) insulin glargine 100 unit/mL (3 50 unit subcut QPM 08/21/23 03/07/24 mL) subcutaneous pen (Basaglar KwikPen U-100 Insulin) aspirin 81 mg tablet,delayed 81 mg PO DAILY 08/30/23 03/07/24 release lisinopril 10 mg tablet 10 mg PO DAILY 02/28/24 03/07/24 semaglutide 0.25 mg or 0.5 mg (2 0.5 mg subcut QWEEK 02/28/24 03/07/24 mg/3 mL) subcutaneous pen injector (Ozempic) tramadol 50 mg tablet 50 mg PO DAILY PRN 02/28/24 03/07/24 Previous Rx's ?Medication ?Instructions ?Recorded atorvastatin 80 mg tablet 80 mg PO DAILY #90 tabs 10/22/23 ipratropium 0.5 mg-albuterol 3 mg 3 ml inhalation Q6H PRN wheezing 12/05/23 (2.5 mg base)/3 mL nebulization #180 mL soln albuterol sulfate 90 mcg/actuation 2 puff inhalation Q4-6H PRN 12/07/23 aerosol inhaler shortness of breath or wheezing #1 ea ipratropium bromide 21 mcg (0.03 2 spray intranasal BID #30 mL 12/31/23 %) nasal spray evolocumab 140 mg/mL subcutaneous 140 mg subcut Q2W 90 days #7 mL 01/02/24 pen injector (Repatha SureClick) fluticasone 250 mcg-salmeterol 50 1 inh inhalation Q12H #60 ea 01/30/24 mcg/dose blistr powdr for inhalation (Wixela Inhub) amlodipine 5 mg tablet 5 mg PO DAILY #90 tabs 02/20/24 Allergies Allergy/AdvReac Type Severity Reaction Status Date / Time No Known Allergies Allergy Verified 03/13/24 18:17 Review of Systems 2 Review of Systems: Yes all other systems are reviewed and are negative [facility] Past Medical History Medical History Carotid stenosis, bilateral Elevated serum GGT level Atherosclerotic cardiovascular disease Non-ST elevation [place] (NSTEMI) Action tremor Chronic headaches GERD (gastroesophageal reflux disease) Hyperlipidemia Depression Pneumonia Sepsis Barretts esophagus Dyslipidemia HTN (hypertension) Charcot's joint of foot Diabetes Surgical History H/O foot surgery Hx of cholecystectomy H/O: hysterectomy Family History Family History Son Substance use disorder Father Substance use disorder Mother Substance use disorder Family/Other Substance use disorder Maternal Grandfather Heart problem Maternal Uncle Heart problem Paternal Grandmother Heart problem Sister Heart problem Social History Social History Household Members: None Housing: Condominium Do you presently have visiting nurse or other home services: No Alcohol intake: never Patient Tobacco Use Status: Never used Tobacco e-Cigarette/Vaping Use: Never Used Second Hand Smoke Exposure: No Advance Directives: Yes Advance Directives on File: Yes Advance Directives Date on File: 07/25/23 Do you have a plan to hurt others: No Plan service: No Current occupational status: employed 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 Oriented X3. No acute distress. Obese Eyes: PERRLA, No Nystagmus ENT: Pharynx normal. Oral Mucosa moist Neck: Normal inspection. Neck supple. CVS: Normal heart rate and rhythm. Pulses normal. Respiratory: No respiratory distress. Equal air entry bilateral, no wheezing/rales/rhonchi Abdomen: Soft and nontender. Bowel sounds are present, no mass palpable, no CVA tenderness Skin: Skin warm and dry. Normal skin color. Normal skin turgor. Extremities: No lower extremity edema. No calf tenderness Neuro: Oriented X 3. No motor deficit. Course Course Course Narrative: This is an RME: Additional HPI, ROS, PE not included below will be deferred to primary provider. RME assessment and note performed by: Sara Watson PA-C This is a 65-[id number]-yww-female, hypertension, dyslipidemia, Amos's esophagus, type 2 diabetes, who presents to the ER with complaints of abnomal labs. Pt started on ozempic two weeks ago, and has had diarrhea, nausea, and vomiting since. Went to her PCP where they ordered blood work and told her to come to the ED due to kidney function. Plan: Labs, UA, further ER evaluation needed Medications Administered Discontinued Medications Generic Name Dose Route Start Last Admin Trade Name Lincoln PRN Reason Stop Dose Admin Sodium Chloride 1,000 mls @ 999 mls/hr 03/13/24 23:07 03/14/24 00:30 Ns IV 03/14/24 00:07 Infused .Q1H1M ONE Infusion Medical Decision Making Medical Decision Making [facility] Narrative: Patient with acute renal failure secondary dosing been use and vomiting and diarrhea fluid loss creatinine was 2.0 in the morning after coming here it was 1.63 urine ketones were negative, patient had p.o. fluids all day also in the ER patient received 1 L of IV fluids patient advised to follow with PCP for further evaluation Differential Diagnosis Differential Diagnoses: The differential diagnosis associated with the presentation includes Admission/Observation Consideration of admission/observation: Escalation of care including admission/observation considered Lab Data [facility] Lab Attestation statement: I reviewed the patient's lab results. 03/13/24 19:07 03/13/24 19:07 Labs: Lab Results 03/13/24 03/13/24 Range/Units 19:07 23:08 WBC 10.2 (4.8-10.8) X10*3/uL RBC 4.32 (4.20-5.50) X10*6/uL Hgb 11.8 L (12.0-16.0) g/dl Hct 35.1 L (37.0-47.0) % MCV 81.3 (80.0-98.0) fL MCH 27.3 (27.0-33.0) pg MCHC 33.6 (31.0-35.0) g/dl RDW 13.4 (11.0-16.0) % Plt Count 248 (160-400) X10*3/uL MPV 8.8 L (9.4-12.3) fL Immature Gran % (Auto) 0.5 H (0.0-0.4) % Neut % (Auto) 57.2 (45-73) % Lymph % (Auto) 30.4 (20-40) % [place] % (Auto) 6.8 (2-11) % Eos % (Auto) 4.5 H (0-4) % Baso % (Auto) 0.6 (0-2) % Lymph # (Auto) 3.1 (1.2-4.9) X10*3/uL [place] # (Auto) 0.7 (0.1-1.2) X10*3/uL Eos # (Auto) 0.5 H (0.0-0.4) X10*3/uL Baso # (Auto) 0.1 (0.0-0.2) X10*3/uL Abs Immat Gran (auto) 0.05 H (0.00-0.03) X10*3/uL Absolute Neuts (auto) 5.8 (2.0-8.3) x10*3/uL Absolute Nucleated RBC 0.000 (0.0-0.012) X10*3/uL Nucleated RBC % (auto) 0.0 (0.0-0.2) /100WBC Sodium 138 (135-145) mmol/L Potassium 4.8 (3.3-5.1) mmol/L Chloride 107 (96-108) mmol/L Carbon Dioxide 25 (22-29) mmol/L Anion Gap 11 L (12-20) BUN 28 H (9-16) mg/dL Creatinine 1.63 H (0.5-1.4) mg/dL Estim Creat Clear Calc 49.6 Estimated GFR 33 Random Glucose 100 (60-115) mg/dL Calcium 9.7 (8.4-10.2) mg/dL Magnesium 2.0 (1.6-2.6) mg/dL Total Bilirubin 0.2 (0.0-1.0) mg/dL Direct Bilirubin < 0.2 (0.0-0.5) mg/dL AST 18 (5-31) U/L ALT 21 (0-31) U/L Alkaline Phosphatase 149 H (39-117) U/L Total Protein 7.4 (6.5-8.0) g/dL Albumin 4.0 (3.5-5.0) g/dL Lipase 61 (8-78) U/L Urine Color Yellow Urine Appearance Cloudy Urine pH 5.0 (5.0-9.0) Ur Specific [place] 1.015 (1.005-1.025) Urine Protein 100 (2+) H (Neg-Trace) mg/dL Urine Glucose (UA) Negative (Negative) mg/dL Urine Ketones Negative (Negative) mg/dL Urine Blood Small (1+) H (Negative) Urine Nitrite Negative (Negative) Ur Leukocyte Esterase Trace H (Negative) Urine RBC 0-2 (0-2) /HPF Urine WBC 0-5 (0-5) /HPF Ur Squamous Epith Cells 0-2 (0-2) /HPF Urine Bacteria 4+ (None Seen) Hyaline Casts 0-2 (0-2) /LPF Discharge Plan Discharge Clinical Impression: Acute renal failure Patient Disposition: Home, Self-Care Instructions: Acute Kidney Injury (DC) Additional Instructions: Drink plenty of fluids Follow the PCP next week to recheck your kidney function Stop taking Ozempic Prescriptions: No Action atorvastatin 80 mg tablet 80 mg PO DAILY Qty: 90 3RF ipratropium-albuterol 0.5 mg-3 mg(2.5 mg base)/3 mL solution for nebulization 3 ml inhalation Q6H PRN (Reason: wheezing) Qty: 180 0RF albuterol sulfate 90 mcg/actuation HFA aerosol inhaler 2 puff inhalation Q4-6H PRN (Reason: shortness of breath or wheezing) Qty: 1 3RF ipratropium bromide 21 mcg (0.03 %) spray,non-aerosol 2 spray intranasal BID Qty: 30 1RF Rx Instructions: administer into each nostril Repatha SureClick 140 mg/mL pen injector 140 mg subcut Q2W 90 Days Qty: 7 3RF fluticasone propion-salmeterol [Wixela Inhub] 250-50 mcg/dose blister with device 1 inh inhalation Q12H Qty: 60 3RF amlodipine 5 mg tablet 5 mg PO DAILY Qty: 90 0RF acetaminophen 650 mg Tablet Extended Release 650 mg PO Q12H PRN (Reason: Pain (Scale Score 1-3)) trazodone 100 mg tablet 100 mg PO BEDTIME (DME) Dexcom G6 Sensor Device See Rx Instructions .ROUTE Q10D Qty: 1 Rx Instructions: As directed gabapentin 300 mg capsule 300 mg PO TID hyoscyamine sulfate 0.125 mg tablet 0.125 mg PO BID PRN (Reason: cramps) pantoprazole 20 mg tablet,delayed release (DR/EC) 20 mg PO DAILY@0630 (DME) Dexcom G6 Transmitter Device See Rx Instructions .ROUTE QWEEK Qty: 1 Rx Instructions: As directed hydroxyzine HCl 10 mg tablet 10 mg PO DAILY PRN (Reason: Anxiety) bupropion HCl 300 mg tablet extended release 24 hr 300 mg PO DAILY lisinopril 10 mg tablet 10 mg PO DAILY Protocol: Hold for SBP< HOLD for SBP < : 90 Ozempic 0.25 mg or 0.5 mg (2 mg/3 mL) pen injector 0.5 mg subcut QWEEK Rx Instructions: for 4 weeks tramadol 50 mg tablet 50 mg PO DAILY PRN insulin glargine [Basaglar KwikPen U-100 Insulin] 100 unit/mL (3 mL) insulin pen 50 unit subcut QPM Fiasp FlexTouch U-100 Insulin 100 unit/mL (3 mL) insulin pen 10 unit subcut TID aspirin 81 mg tablet,delayed release (DR/EC) 81 mg PO DAILY Print Language: Arabic
[2024-03-13 19:11] LABS: MANUAL DIFF FLAG NO
[2024-03-13 19:12] LABS: Basophils Absolute Auto 0.1 X10*3/uL (0.0-0.2); Basophils Percent Auto 0.6 % (0-2); Eosinophils Absolute Auto 0.5 X10*3/uL (0.0-0.4); Eosinophils Percent Auto 4.5 % (0-4); Hematocrit 35.1 % (37.0-47.0); Hemoglobin 11.8 g/dl (12.0-16.0); Imm Gran Abs Auto 0.05 X10*3/uL (0.00-0.03); Imm Gran Pct Auto 0.5 % (0.0-0.4); Lymphocytes Absolute Auto 3.1 X10*3/uL (1.2-4.9); Lymphocytes Percent Auto 30.4 % (20-40); Mean Corpuscular HGB Conc 33.6 g/dl (31.0-35.0); Mean Corpuscular Hemoglobin 27.3 pg (27.0-33.0); Mean Corpuscular Volume 81.3 fL (80.0-98.0); Mean Platelet Volume 8.8 fL (9.4-12.3); Monocytes Absolute Auto 0.7 X10*3/uL (0.1-1.2); Monocytes Percent Auto 6.8 % (2-11); Neutrophils Absolute Auto 5.8 x10*3/uL (2.0-8.3); Neutrophils Percent Auto 57.2 % (45-73); Platelet Count 248 X10*3/uL (160-400); Red Blood Count 4.32 X10*6/uL (4.20-5.50); Red Cell Distribution Width 13.4 % (11.0-16.0); White Blood Count 10.2 X10*3/uL (4.8-10.8)
[2024-03-13 19:28] LABS: Alanine Aminotransferase 21 U/L (0-31); Alkaline Phosphatase 149 U/L (39-117); Anion Gap 11 (12-20); Aspartate Amino Transferase 18 U/L (5-31); Bilirubin Direct < 0.2 mg/dL (0.0-0.5); Bilirubin Total 0.2 mg/dL (0.0-1.0); Blood Urea Nitrogen 28 mg/dL (9-16); Calcium 9.7 mg/dL (8.4-10.2); Carbon Dioxide 25 mmol/L (22-29); Chloride 107 mmol/L (96-108); Creatinine Clr Calc Pharmacy 49.6; Estimated Glomerular Filt Rate 33; Glucose Random 100 mg/dL (60-115); Lipase 61 U/L (8-78); Potassium 4.8 mmol/L (3.3-5.1); Sodium 138 mmol/L (135-145); Total Protein 7.4 g/dL (6.5-8.0)
[2024-03-13 22:47] VITALS: BP 143/78; PULSE 104; RESP 18; TEMP 36.8; O2SAT 96
[2024-03-13 23:14] LABS: Appearance Urine Cloudy; Color Urine Yellow; Glucose Urine UA Negative (Negative); Leukocyte Esterase Urine Trace (Negative); Nitrite Urine Negative (Negative); Specific Gravity - Urine 1.015 (1.005-1.025); UMIC TRIGGER UACC YES; Urine Blood Small (1+) (Negative); Urine Ketones Negative (Negative); Urine Protein 100 (2+) mg/dL (Neg-Trace)
[2024-03-13 23:24] LABS: Bacteria Urine 4+ (None Seen); Hyaline Casts Urine 0-2 /LPF (0-2); RBC Urine 0-2 /HPF (0-2); Squamous Epithelial Cell Urine 0-2 /HPF (0-2); WBC Urine 0-5 /HPF (0-5)
[2024-03-13] MEDS: 0.9 % Sodium Chloride 1,000 ML 999 ML IV (23:25)
[2024-03-14 00:57] VITALS: BP 125/77; PULSE 102; RESP 14; TEMP 36.9; O2SAT 95
[2024-03-14 01:23] VITALS: BP 125/77; PULSE 102; RESP 14; TEMP 36.9; O2SAT 95
== END 2024-03-14 01:24 | disposition home or self-care (01) ==
PROVIDERS: Physician Assistant Medical; Emergency Provider Internal Medicine; PCP Nurse Practitioner Family
DX: N17.9 Acute kidney failure, unspecified (principal); E11.9 Type 2 diabetes mellitus without complications; I10 Essential (primary) hypertension; I25.10 Atherosclerotic heart disease of native coronary artery without angina pectoris; I25.2 Old myocardial infarction; Z79.85 Long-term (current) use of injectable non-insulin antidiabetic drugs
CPT/HCPCS: 36415; 80048; 80076; 81001; 83690; 83735; 85025; 96360; 99284

== ENCOUNTER 2024-03-20 09:59 | Outpatient (REF) | payer BC, SELFPAY ==
--- NOTE | ~2024-03-20 | US_ITS ---
EXAMINATION: US ABDOMEN COMPLETE CLINICAL INFORMATION: Abnormal levels of other serum enzymes. Elevated serum GGT level. COMPARISON: CT chest 10/12/2023. TECHNIQUE: Real-time imaging of the abdominal viscera. Technically limited study secondary to body habitus. FINDINGS: PANCREAS: The head and body of the pancreas appear normal. The tail is obscured by bowel gas. ABDOMINAL AORTA: Visualized portions are normal in caliber. INFERIOR VENA CAVA: Visualized portions are normal. LIVER: Normal. The liver is normal in size. The liver contour is normal. Parenchymal echogenicity is normal. No focal hepatic lesion. There is no intrahepatic biliary duct dilatation seen. GALLBLADDER: Surgically absent. COMMON BILE DUCT: Stable mildly dilated 0.7 cm, likely reservoir effect in setting of cholecystectomy. RIGHT KIDNEY: Normal. No hydronephrosis. No renal calculi or focal parenchymal lesions. The kidney measures 12.0 cm in maximum dimension. LEFT KIDNEY: 1.6 cm simple cyst in the upper pole. No imaging follow-up is recommended. No hydronephrosis or renal calculi. The kidney measures 13.5 cm in maximum dimension. SPLEEN: Enlarged. The spleen measures 14.6 cm in maximum dimension. FREE FLUID: None. US/US abdomen complete IMPRESSION: Stable mildly dilated common bile duct at 0.7 cm is likely reservoir effect in setting of cholecystectomy. There is no intrahepatic biliary ductal dilatation. Recommend clinical correlation. Further evaluation with MRI abdomen without and with intravenous contrast including MRCP sequences is recommended if there is ongoing clinical concern for biliary obstruction.
[2024-03-20 13:12] LABS: MANUAL DIFF FLAG NO
[2024-03-20 13:19] LABS: Basophils Absolute Auto 0.1 X10*3/uL (0.0-0.2); Basophils Percent Auto 0.7 % (0-2); Eosinophils Absolute Auto 0.5 X10*3/uL (0.0-0.4); Eosinophils Percent Auto 4.9 % (0-4); Hematocrit 34.3 % (37.0-47.0); Hemoglobin 10.8 g/dl (12.0-16.0); Imm Gran Abs Auto 0.05 X10*3/uL (0.00-0.03); Imm Gran Pct Auto 0.5 % (0.0-0.4); Lymphocytes Absolute Auto 1.8 X10*3/uL (1.2-4.9); Lymphocytes Percent Auto 18.5 % (20-40); Mean Corpuscular HGB Conc 31.5 g/dl (31.0-35.0); Mean Corpuscular Hemoglobin 26.9 pg (27.0-33.0); Mean Corpuscular Volume 85.5 fL (80.0-98.0); Mean Platelet Volume 9.6 fL (9.4-12.3); Monocytes Absolute Auto 0.5 X10*3/uL (0.1-1.2); Neutrophils Absolute Auto 6.8 x10*3/uL (2.0-8.3); Neutrophils Percent Auto 70.4 % (45-73); Platelet Count 263 X10*3/uL (160-400); Red Blood Count 4.01 X10*6/uL (4.20-5.50); Red Cell Distribution Width 13.5 % (11.0-16.0); White Blood Count 9.7 X10*3/uL (4.8-10.8)
[2024-03-20 13:26] LABS: Appearance Urine Clear; Color Urine Yellow; Glucose Urine UA Negative (Negative); Leukocyte Esterase Urine Trace (Negative); Nitrite Urine Negative (Negative); PH 5.5 (5.0-9.0); Specific Gravity - Urine 1.015 (1.005-1.025); UMIC TRIGGER UACC YES; Urine Blood Negative (Negative); Urine Ketones Negative (Negative); Urine Protein 30 (1+) mg/dL (Neg-Trace)
[2024-03-20 13:30] LABS: Bacteria Urine None Seen (None Seen); Hyaline Casts Urine 0-2 /LPF (0-2); RBC Urine 0-2 /HPF (0-2); WBC Urine 0-5 /HPF (0-5)
[2024-03-20 13:41] LABS: Alanine Aminotransferase 21 U/L (0-31); Albumin Level 3.8 g/dL (3.5-5.0); Alkaline Phosphatase 145 U/L (39-117); Anion Gap 13 (12-20); Aspartate Amino Transferase 19 U/L (5-31); Bilirubin Total 0.3 mg/dL (0.0-1.0); Blood Urea Nitrogen 26 mg/dL (9-16); Calcium 9.4 mg/dL (8.4-10.2); Carbon Dioxide 22 mmol/L (22-29); Chloride 110 mmol/L (96-108); Estimated Glomerular Filt Rate 33; Glucose Random 114 mg/dL (60-115); Potassium 5.4 mmol/L (3.3-5.1); Sodium 140 mmol/L (135-145)
[2024-03-25 13:38] LABS: Alk.Phos Iso. Macrohepatic 0 % (<=0); Alk.Phos Isoenzymes Bone 35 % (28-66); Alk.Phos Isoenzymes Intest 4 % (1-24); Alk.Phos Isoenzymes Liver 61 % (25-69); Alk.Phos Isoenzymes Placental 0 % (<=0); Alk.Phos Isoenzymes Total 138 U/L (37-153)
== END 2024-03-20 10:00 | disposition home or self-care (01) ==
LOC: HO.HMGCX 09:59
PROVIDERS: PCP Nurse Practitioner Family; Visit Provider Nurse Practitioner Family
DX: R74.8 Abnormal levels of other serum enzymes (principal); N17.9 Acute kidney failure, unspecified
CPT/HCPCS: 36415; 76700; 80053; 81001; 84080; 85025

== ENCOUNTER 2024-03-24 13:07 | Outpatient (REF) | payer BC, SELFPAY ==
[2024-03-24 18:21] LABS: MANUAL DIFF FLAG NO
[2024-03-24 18:29] LABS: Basophils Percent Auto 0.6 % (0-2); Eosinophils Absolute Auto 0.4 X10*3/uL (0.0-0.4); Eosinophils Percent Auto 5.8 % (0-4); Hematocrit 33.9 % (37.0-47.0); Imm Gran Abs Auto 0.03 X10*3/uL (0.00-0.03); Imm Gran Pct Auto 0.4 % (0.0-0.4); Lymphocytes Percent Auto 27.6 % (20-40); Mean Corpuscular HGB Conc 32.4 g/dl (31.0-35.0); Mean Corpuscular Hemoglobin 27.1 pg (27.0-33.0); Mean Corpuscular Volume 83.5 fL (80.0-98.0); Mean Platelet Volume 9.4 fL (9.4-12.3); Monocytes Absolute Auto 0.4 X10*3/uL (0.1-1.2); Monocytes Percent Auto 6.1 % (2-11); Neutrophils Absolute Auto 4.2 x10*3/uL (2.0-8.3); Neutrophils Percent Auto 59.5 % (45-73); Platelet Count 242 X10*3/uL (160-400); Red Blood Count 4.06 X10*6/uL (4.20-5.50); Red Cell Distribution Width 13.3 % (11.0-16.0); White Blood Count 7.1 X10*3/uL (4.8-10.8)
[2024-03-24 18:48] LABS: Alanine Aminotransferase 23 U/L (0-31); Albumin Level 3.9 g/dL (3.5-5.0); Alkaline Phosphatase 162 U/L (39-117); Anion Gap 12 (12-20); Aspartate Amino Transferase 18 U/L (5-31); Bilirubin Total 0.3 mg/dL (0.0-1.0); Blood Urea Nitrogen 20 mg/dL (9-16); Calcium 9.8 mg/dL (8.4-10.2); Carbon Dioxide 27 mmol/L (22-29); Chloride 102 mmol/L (96-108); Estimated Glomerular Filt Rate 38; Glucose Random 218 mg/dL (60-115); Potassium 4.9 mmol/L (3.3-5.1); Sodium 136 mmol/L (135-145); Total Protein 7.3 g/dL (6.5-8.0)
== END 2024-03-24 13:08 | disposition home or self-care (01) ==
LOC: HO.HMGCLDS 13:07
PROVIDERS: PCP Nurse Practitioner Family; Visit Provider Internal Medicine
DX: E87.5 Hyperkalemia (principal); D64.9 Anemia, unspecified
CPT/HCPCS: 36415; 80053; 85025

== ENCOUNTER 2024-04-09 14:31 | Outpatient (AMB) | payer BC, SELFPAY ==
[2024-04-09 14:38] VITALS: BP 118/66; PULSE 92; O2SAT 97; BMI 44.9
--- NOTE | 2024-04-09 14:38 | A.OFFVIS_ITS ---
Vital Signs 04/09/24 14:38 Height 5 ft 5 in Weight 270 lb 2 oz BMI 44.9 BP 118/66 Blood Pressure Location Rt brachial Position Sitting Pulse 92 Pulse Source Pulse Oximeter Pulse Oximetry (%) 97 Oxygen Delivery Method Room Air Intake Visit Reasons: dyspnea Allergies No Known Allergies Allergy (Verified 04/09/24 14:43) HPI HPI dyspnea: Details: Ewelina is a pleasant 59 year old, never smoker, with underlying history of COVID in 2020 requiring 8 day ICU stay and recent hospital admission for sepsis, DKA, pneumonia and [place] in August 2023. She was previously started on pulmicort and duoneb PRN with suboptimal effect. At the last visit she was switched to Wixela with improvement in symptoms. She continues to report dyspnea on exertion, however decreased and reports cough is now very infrequent. She denies wheezing, or chest tightness. She reports using albuterol PRN with good effect. [facility] Medical History Carotid stenosis, bilateral Elevated serum GGT level Atherosclerotic cardiovascular disease Non-ST elevation [place] (NSTEMI) Action tremor Chronic headaches GERD (gastroesophageal reflux disease) Hyperlipidemia Depression Pneumonia Sepsis Barretts esophagus Dyslipidemia HTN (hypertension) Charcot's joint of foot Diabetes Surgical History H/O foot surgery Hx of cholecystectomy H/O: hysterectomy Family History Son Substance use disorder Father Substance use disorder Mother Substance use disorder Family/Other Substance use disorder Maternal Grandfather Heart problem Maternal Uncle Heart problem Paternal Grandmother Heart problem Sister Heart problem Social History Household Members: None Housing: Condominium Do you presently have visiting nurse or other home services: No Alcohol intake: never Patient Tobacco Use Status: Never used Tobacco e-Cigarette/Vaping Use: Never Used Second Hand Smoke Exposure: No Advance Directives Date on File: 07/25/23 service: No Current occupational status: employed 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 Current occupational exposures/hazards: No Cognitive needs: No Hearing needs: No Vision needs: No Review of Systems Const Denies chills, Denies excessive sweating, Denies fever(s), Denies headache(s) and Denies night sweats Eyes Denies dry eyes, Denies irritation and Denies itchy eyes ENT Reports Normal hearing present, Denies headache(s), Denies nasal congestion, Denies nasal discharge, Denies post nasal drip and Denies sore throat Card Denies chest pain, Denies chest pain at rest, Denies chest pain with activity, Denies claudication, Denies leg edema, Denies orthopnea and Denies paroxysmal nocturnal dyspnea Resp Denies chest congestion, Denies excessive phlegm production, Denies pain on inspiration, Denies pain with cough, Denies stridor and Denies wheezing Musc Denies myalgias Neuro Reports Normal hearing present and Denies headache(s) Endo Denies excessive sweating Gary/Lymph Denies lymphadenopathy Aller/Immun Denies itchy eyes, Denies seasonal rhinorrhea and Denies wheezing Physical Exam Vital Signs: Last Vital Signs Pulse 92 04/09/24 14:38 BP 118/66 04/09/24 14:38 Pulse Ox 97 04/09/24 14:38 Oxygen Delivery Method Room Air 04/09/24 14:38 BMI result Body Mass Index 44.9 Const General: cooperative, healthy appearing, comfortable, no acute distress, well developed and alert Nutritional Appearance: obese Orientation/consciousness: patient oriented x3 Limitations: no limitations HEENT Head: Yes normal to inspection, Yes normocephalic and Yes atraumatic Ears: hearing grossly normal bilaterally and external ears normal Eyes General: appearance normal, both eyes and all related structures Eyelids: Yes eyelids normal Sclerae: sclerae normal EOM: EOMs intact bilaterally Neck Neck: Yes normal visual inspection and Yes no lymphadenopathy Lymphatic: no lymphadenopathy noted Chest Chest palpation & inspection: normal inspection of the chest Resp Effort & Inspection: normal respiratory effort, able to speak in complete sentences, no audible wheezes, no cough, no stridor, not tachypneic, no tripod positioning and no use of accessory muscles Auscultation: clear to auscultation bilaterally Cardio Jugular venous distension: no JVD Rate: regular rate Rhythm: regular rhythm Skin Other: warm, dry General skin exam: no rashes or lesions noted Neuro General: patient oriented x3 Cranial nerves: Yes Normal hearing present Cognition (Neuro): normal cognition Gait exam (Neuro): Normal gait present Extrem General: Yes normal to inspection, Yes capillary refill normal, Yes no clubbing, cyanosis or edema and Yes no pedal edema Psych Appearance: grossly normal and well kempt Speech and movement: Normal speech and movement present and Clear speech present Affect: normal affect Attitude: cooperative Thought process: Normal thought process present Thought content: Normal thought content present Insight: Good insight present (Psych) Judgement: Good judgement present (Psych) Assessment & Plan Assessment & Plan (1) Dyspnea on exertion: Code(s): R06.09 - Other forms of dyspnea Category: Medical (2) Abnormal chest x-ray: Code(s): R93.89 - Abnormal findings on diagnostic imaging of other specified body structures Category: Medical (3) Bronchiectasis: Code(s): J47.9 - Bronchiectasis, uncomplicated Category: Medical Plan Ewelina reports improvements since switching to Wixela however continues to report dyspnea on exertion and intermittent cough. We discussed increasing Wixela however patient feels her symptoms are much more controlled than prior and would like to defer at this time. Reviewed RAST which was negative. All questions were answered and patient is in agreement of plan. Will follow up for 3 months or sooner if needed. Coding Level of Care Code Est Pt Level 3 (83482) Diagnoses Dyspnea on exertion R06.09 Abnormal chest x-ray R93.89 Bronchiectasis J47.9
== END 2024-04-09 15:11 | disposition home or self-care (01) ==
PROVIDERS: PCP Nurse Practitioner Family; Visit Provider Nurse Practitioner Family
DX: R06.09 Other forms of dyspnea (principal); R93.89 Abnormal findings on diagnostic imaging of other specified body structures; J47.9 Bronchiectasis, uncomplicated
CPT/HCPCS: 99213

== ENCOUNTER → 2024-04-09 14:32 | Outpatient (BNVA) | payer BC, SELFPAY | PROVIDERS: PCP Nurse Practitioner Family; Visit Provider Nurse Practitioner Family ==

== ENCOUNTER 2024-05-15 13:24 | Outpatient (AMB) | payer BC, SELFPAY ==
--- NOTE | 2024-05-15 13:28 | A.OFFVIS_ITS ---
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 Accompanied by: Self / Same As Patient Allergies No Known Allergies Allergy (Verified 04/09/24 14:43) Medication List - Last Reconciled 05/15/24 by Ashok Robison MD acetaminophen ER 650 mg PO Q12H PRN albuterol sulfate 90 mcg/actuation 2 puffs inhalation Q4-6H PRN amlodipine 5 mg PO DAILY aspirin 81 mg PO DAILY atorvastatin 80 mg PO DAILY blood-glucose sensor (Dexcom G6 Sensor device) As directed blood-glucose transmitter (Dexcom G6 Transmitter device) As directed bupropion HCl XL 300 mg PO DAILY evolocumab (Repatha SureClick) 140 mg subcut Q2W 90 days fluticasone propion-salmeterol 250-50 mcg/dose (Wixela Inhub) 1 inh inhalation Q12H 90 days gabapentin 300 mg PO TID hydroxyzine HCl 10 mg PO DAILY PRN insulin aspart (niacinamide) 100 unit/mL (3 mL) (Fiasp FlexTouch U-100 Insulin) 10 units subcut TID insulin glargine (Basaglar KwikPen U-100 Insulin) 50 units subcut QPM ipratropium bromide 2 sprays intranasal BID ipratropium-albuterol 0.5 mg-3 mg(2.5 mg base)/3 mL 3 mL inhalation Q6H PRN lisinopril 10 mg See Protocol PO DAILY pantoprazole 20 mg PO DAILY@0630 tramadol 50 mg PO DAILY PRN HPI Comments Details: Ewelina returns for follow-up. Originally seen in consultation regarding NSTEMI. She has multiple cardiovascular factors including type 2 diabetes, hypertension, dyslipidemia. She states she had initially gestational diabetes in her 20s but then has been a diabetic for the last 15 years or so. Currently on insulin. In 2022, she went to [place] for vacation in [place]. However, she was sick and got admitted to a local hospital. Per discharge summary, treat as DKA, sepsis from strep pneumonia and respiratory failure. In that context, slight troponin elevation thought to be from demand related NSTEMI. After getting discharged from [place] [facility], she came here but she was still sick and it seems she got admitted to [place] with another diagnosis of pneumonia/respiratory failure. At that time, troponins were unremarkable. Then underwent cardiac catheterization but no significant disease. Overall, she states she feels generally okay. No new complaints. No angina. [facility] Medical History Carotid stenosis, bilateral Elevated serum GGT level Atherosclerotic cardiovascular disease Non-ST elevation ND (NSTEMI) Action tremor Chronic headaches GERD (gastroesophageal reflux disease) Hyperlipidemia Depression Pneumonia Sepsis Barretts esophagus Dyslipidemia HTN (hypertension) Charcot's joint of foot Diabetes Surgical History H/O foot surgery Hx of cholecystectomy H/O: hysterectomy Family History Son Substance use disorder Father Substance use disorder Mother Substance use disorder Family/Other Substance use disorder Maternal Grandfather Heart problem Maternal Uncle Heart problem Paternal Grandmother Heart problem Sister Heart problem Social History Household Members: None Housing: Condominium Do you presently have visiting nurse or other home services: No Alcohol intake: never Patient Tobacco Use Status: Never used Tobacco e-Cigarette/Vaping Use: Never Used Second Hand Smoke Exposure: No Advance Directives Date on File: 07/25/23 service: No Current occupational status: employed 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 Current occupational exposures/hazards: No Cognitive needs: No Hearing needs: No Vision needs: No Review of Systems Const Denies chills, Denies fatigue, Denies fever(s), Denies weight gain and Denies weight loss ENT Denies dizziness Card Denies chest pain, Denies leg edema, Denies lightheadedness, Denies palpitations, Denies dyspnea on exertion, Denies orthopnea and Denies other Resp Denies cough and Denies dyspnea on exertion GI Denies hematochezia and Denies change in stool character Musc Denies abnormal gait, Denies muscle weakness, Denies numbness, Denies radiating pain into limb and Denies tingling Neuro Denies abnormal gait, Denies dizziness, Denies numbness and Denies tingling Endo Denies fatigue and Denies palpitations Physical Exam Vital Signs: Last Vital Signs Pulse 88 05/15/24 13:30 BP 126/84 05/15/24 13:30 BMI result Body Mass Index 45.4 Const General: comfortable and no acute distress Orientation/consciousness: patient oriented x3 HEENT Other: Unremarkable Head: Yes normal to inspection Neck Neck: Yes normal visual inspection Chest Chest palpation & inspection: normal inspection of the chest Resp Auscultation: clear to auscultation bilaterally Cardio Palpation: normal PMI Heart sounds: S1 normal heart sound present, S2 normal heart sound present, no gallops, no murmurs and no rubs GI Palpation (GI): Soft to palpation Back/Spine/Pelvis Other: unremarkable Skin General skin exam: no rashes or lesions noted Neuro General: patient oriented x3 Extrem General: Yes normal to inspection Psych Mental Status: mental status grossly normal Office Procedures EKG Details: EKG with underlying sinus rhythm at 88/Min; low voltage complexes; cannot exclude old anterior infarct could be from body habitus; borderline MN prolongation to 204 millisecond; [place] [id number], Complete Assessment & Plan Assessment & Plan (1) Non-ST elevation ND (NSTEMI): Code(s): I21.4 - Non-ST elevation (NSTEMI) myocardial infarction Category: Medical (2) Atherosclerotic cardiovascular disease: Code(s): I25.10 - Atherosclerotic heart disease of [place] coronary artery without angina pectoris Category: Medical (3) Diabetes mellitus with hyperglycemia: Code(s): E11.65 - Type 2 diabetes mellitus with hyperglycemia Category: Medical Plan Longstanding diabetes, recent demand related NSTEMI in setting of infection, many comorbidities. Echocardiogram with LVEF of 65-70% with mild diastolic dysfunction. No significant valvular issues. Ascending aortic size 3.7 cm. Myocardial perfusion imaging study shows ischemia/infarct pattern in the distal anterior wall/apex but could not exclude soft tissue attenuation artifact. Cardiac catheterization with mild disease in the LAD and minimal irregularities in circumflex but otherwise normal coronaries. Neck CTA from [facility], 12/2023-25% stenosis at the origin of bilateral internal carotid artery. Overall, mild CAD, diabetes and various risk factors. Unclear if she is going to be able to lose weight and this may be very well her long-term weight. Otherwise, aggressive management of diabetes and dyslipidemia. Lipids elevated on high-dose statins and hence she is now on Repatha. LDL is improved to 53 mg/dL. In the past, as much as 135 mg/dL. With regard to the mild carotid disease, we can check carotid ultrasound in 1 year. Orders: Orders US carotid duplex BI 1 Year I65.23 - Occlusion and stenosis of bilateral carotid arteries Coding Level of Care Code Est Pt Level 4 (49794) Diagnoses Non-ST elevation ND (NSTEMI) I21.4 Atherosclerotic cardiovascular disease I25.10 Diabetes mellitus with hyperglycemia E11.65 CPT Codes EKG - CPT: 39803-[id number], Complete ([id number])
[2024-05-15 13:30] VITALS: BP 126/84; PULSE 88; BMI 45.4
== END 2024-05-15 14:09 | disposition home or self-care (01) ==
LOC: HO.HCS 13:24
PROVIDERS: PCP Nurse Practitioner Family; Visit Provider Internal Medicine
DX: I21.4 Non-ST elevation (NSTEMI) myocardial infarction (principal); I25.10 Atherosclerotic heart disease of native coronary artery without angina pectoris; E11.65 Type 2 diabetes mellitus with hyperglycemia
CPT/HCPCS: 93010; 99214

== ENCOUNTER → 2024-05-15 13:24 | Outpatient (BNVA) | payer BC, SELFPAY | PROVIDERS: PCP Nurse Practitioner Family; Visit Provider Internal Medicine | DX: I25.10 Atherosclerotic heart disease of native coronary artery without angina pectoris (principal); I25.2 Old myocardial infarction; E11.65 Type 2 diabetes mellitus with hyperglycemia | CPT/HCPCS: 93005 ==

== ENCOUNTER 2024-06-10 13:24 | Outpatient (REF) | payer BC, SELFPAY ==
[2024-06-10 16:06] LABS: Appearance Urine Cloudy; Color Urine Orange; Glucose Urine UA Negative (Negative); Leukocyte Esterase Urine Moderate (2+) (Negative); Nitrite Urine Positive (Negative); UMIC TRIGGER UA YES; Urine Blood Moderate (2+) (Negative); Urine Ketones Negative (Negative); Urine Protein 300 (3+) mg/dL (Neg-Trace)
[2024-06-10 16:09] LABS: Bacteria Urine 4+ (None Seen); Hyaline Casts Urine 0-2 /LPF (0-2); Squamous Epithelial Cell Urine >20 /HPF (0-2); WBC Urine >50 /HPF (0-5)
== END 2024-06-10 13:25 | disposition home or self-care (01) ==
LOC: HO.HMGCLDS 13:24
PROVIDERS: PCP Nurse Practitioner Family; Visit Provider Nurse Practitioner Family
DX: R30.0 Dysuria (principal); R82.79 Other abnormal findings on microbiological examination of urine
CPT/HCPCS: 81001; 87086; 87088; 87186

== ENCOUNTER 2024-06-21 09:21 | Outpatient (REF) | payer BC, SELFPAY ==
[2024-06-21 10:59] LABS: Appearance Urine Clear; Color Urine Yellow; Glucose Urine UA Negative (Negative); Leukocyte Esterase Urine Trace (Negative); Nitrite Urine Negative (Negative); PH 5.5 (5.0-9.0); Specific Gravity - Urine 1.015 (1.005-1.025); UMIC TRIGGER UACC YES; Urine Blood Trace (Negative); Urine Ketones Negative (Negative); Urine Protein 100 (2+) mg/dL (Neg-Trace)
[2024-06-21 11:03] LABS: Bacteria Urine None Seen (None Seen); RBC Urine 0-2 /HPF (0-2); Squamous Epithelial Cell Urine 0-2 /HPF (0-2); WBC Urine 0-5 /HPF (0-5)
[2024-06-21 11:21] LABS: MANUAL DIFF FLAG NO
[2024-06-21 11:30] LABS: Basophils Percent Auto 0.4 % (0-2); Eosinophils Absolute Auto 0.5 X10*3/uL (0.0-0.4); Eosinophils Percent Auto 6.3 % (0-4); Hematocrit 33.5 % (37.0-47.0); Hemoglobin 10.6 g/dl (12.0-16.0); Imm Gran Abs Auto 0.03 X10*3/uL (0.00-0.03); Imm Gran Pct Auto 0.4 % (0.0-0.4); Lymphocytes Absolute Auto 2.5 X10*3/uL (1.2-4.9); Lymphocytes Percent Auto 33.7 % (20-40); Mean Corpuscular HGB Conc 31.6 g/dl (31.0-35.0); Mean Corpuscular Hemoglobin 26.9 pg (27.0-33.0); Mean Platelet Volume 9.1 fL (9.4-12.3); Monocytes Absolute Auto 0.4 X10*3/uL (0.1-1.2); Monocytes Percent Auto 5.5 % (2-11); Neutrophils Absolute Auto 3.9 x10*3/uL (2.0-8.3); Neutrophils Percent Auto 53.7 % (45-73); Platelet Count 278 X10*3/uL (160-400); Red Blood Count 3.94 X10*6/uL (4.20-5.50); Red Cell Distribution Width 13.4 % (11.0-16.0); White Blood Count 7.3 X10*3/uL (4.8-10.8)
[2024-06-21 11:39] LABS: Alanine Aminotransferase 24 U/L (0-31); Albumin Level 3.7 g/dL (3.5-5.0); Alkaline Phosphatase 143 U/L (39-117); Anion Gap 11 (12-20); Aspartate Amino Transferase 17 U/L (5-31); Bilirubin Total 0.2 mg/dL (0.0-1.0); Blood Urea Nitrogen 28 mg/dL (9-16); Calcium 9.1 mg/dL (8.4-10.2); Carbon Dioxide 23 mmol/L (22-29); Chloride 111 mmol/L (96-108); Estimated Glomerular Filt Rate 32; Glucose Fasting 141 mg/dL (60-99); Potassium 5.2 mmol/L (3.3-5.1); Sodium 140 mmol/L (135-145)
== END 2024-06-21 09:22 | disposition home or self-care (01) ==
LOC: HO.HMGCLDS 09:21
PROVIDERS: PCP Nurse Practitioner Family; Visit Provider Nurse Practitioner Family
DX: R79.89 Other specified abnormal findings of blood chemistry (principal)
CPT/HCPCS: 36415; 80053; 81001; 81003; 85025

== ENCOUNTER 2024-06-23 13:07 | Outpatient (AMB) | payer BC, SELFPAY ==
[2024-06-23 13:08] VITALS: BP 118/70; PULSE 94; O2SAT 98; BMI 47.4
--- NOTE | 2024-06-23 13:08 | MHC.PC.OV ---
Vital Signs 06/23/24 13:08 Height 5 ft 5 in Weight 285 lb BMI 47.4 BP 118/70 Blood Pressure Location Lt brachial Position Sitting Pulse 94 Pulse Source Pulse Oximeter Pulse Oximetry (%) 98 Oxygen Delivery Method Room Air Intake Visit Reasons: PE w/ labs Intake Note: Pt is here today for PE. Allergies No Known Allergies Allergy (Verified 06/23/24 17:09) Medication List - Last Reconciled 06/23/24 by SALO Esteban-DORA acetaminophen ER 650 mg PO Q12H PRN albuterol sulfate 90 mcg/actuation 2 puffs inhalation Q4-6H PRN amlodipine 5 mg PO DAILY aspirin 81 mg PO DAILY atorvastatin 80 mg PO DAILY blood-glucose sensor (DataRose G6 Sensor device) As directed blood-glucose transmitter (Dexcom G6 Transmitter device) As directed bupropion HCl XL 300 mg PO DAILY cefuroxime axetil 250 mg PO BID 7 days evolocumab (Repatha SureClick) 140 mg subcut Q2W 90 days fluticasone propion-salmeterol 250-50 mcg/dose (Wixela Inhub) 1 inh inhalation Q12H 90 days gabapentin 300 mg PO TID hydroxyzine HCl 10 mg PO DAILY PRN insulin aspart (niacinamide) 100 unit/mL (3 mL) (Fiasp FlexTouch U-100 Insulin) 10 units subcut TID insulin glargine (Basaglar KwikPen U-100 Insulin) 50 units subcut QPM ipratropium bromide 2 sprays intranasal BID ipratropium-albuterol 0.5 mg-3 mg(2.5 mg base)/3 mL 3 mL inhalation Q6H PRN lisinopril 10 mg See Protocol PO DAILY pantoprazole 20 mg PO DAILY@0630 Tobacco use date assessed: 06/23/24 Dental Screening Dental Screen Date: 06/23/24 Did you have a dental visit in the last 12 months?: Yes Did you have a dental problem in the last 6 months where you did not have access to dental care?: No Was dental information given to patient?: Patient has dentist HPI PE w/ labs HPI Details Pt is here for a PE. Labs were already performed. Colon screen is up to date. Mammo is scheduled. Pt's labs show anemia. She denies any blood in stool or vaginal bleeding. Will order further labs and FIT testing. Pt's creatinine was elevated. Will refer to nephrology and encouraged to push fluids. Pt is a diabetic, sees endo. Pt's UA was positive for UTI. Will send cefuroxime. Will repeat UA in the future. [facility] Medical History Carotid stenosis, bilateral Elevated serum GGT level Atherosclerotic cardiovascular disease Non-ST elevation SD (NSTEMI) Action tremor Chronic headaches GERD (gastroesophageal reflux disease) Hyperlipidemia Depression Pneumonia Sepsis Barretts esophagus Dyslipidemia HTN (hypertension) Charcot's joint of foot Diabetes Surgical History H/O foot surgery Hx of cholecystectomy H/O: hysterectomy Family History Son Substance use disorder Father Substance use disorder Mother Substance use disorder Family/Other Substance use disorder Maternal Grandfather Heart problem Maternal Uncle Heart problem Paternal Grandmother Heart problem Sister Heart problem Social History Household Members: None Housing: Condominium Do you presently have visiting nurse or other home services: No Alcohol intake: never Patient Tobacco Use Status: Never used Tobacco e-Cigarette/Vaping Use: Never Used Second Hand Smoke Exposure: No Advance Directives Date on File: 07/25/23 service: No Current occupational status: employed 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 How often do you have a drink containing alcohol?: Never 3. How often do you have six or more drinks on one occasion?: Never Total Score: 0 MINH-7 AMB Questionnaire MINH-7 Date MINH - 7 assessed: 10/31/23 Source: Developed by Drs. Cruz Gilbert, Jenna Acosta, Rick Cohen and colleagues, with an educational gabriel from [employer]. Review of Systems Const Denies chills and Denies fever(s) Eyes Denies blurry vision ENT Denies vertigo, Denies dizziness and Denies sore throat Card Denies chest pain at rest, Denies chest pain with activity, Denies diaphoresis, Denies dyspnea and Denies dyspnea on exertion Resp Denies cough, Denies dyspnea, Denies dyspnea on exertion and Denies wheezing GI Denies abdominal pain, Denies melena, Denies hematochezia, Reports constipation, Reports diarrhea and Reports loose stools Denies hematuria Musc Denies numbness and Denies tingling Skin/Breast Denies lesions Neuro Denies vertigo, Denies dizziness, Denies numbness and Denies tingling Psych Denies anxiety, Denies depression, Denies homicidal ideation, Denies suicidal ideation and Denies other (substance abuse) Aller/Immun Denies wheezing Physical exam (Primary Care) Vital Signs: Last Vital Signs Pulse 94 06/23/24 13:08 BP 118/70 06/23/24 13:08 Pulse Ox 98 06/23/24 13:08 Oxygen Delivery Method Room Air 06/23/24 13:08 BMI result Body Mass Index 47.4 Tobacco/Smoking Status: Tobacco use Status Tobacco use date assessed 06/23/24 06/23/24 13:14 Patient Tobacco Use Status Never used Tobacco 06/23/24 13:14 e-Cigarette/Vaping Use Never Used 06/23/24 13:14 Thrive Assessment: Date of Thrive Assessment Date Thrive assessed 10/31/23 06/23/24 13:14 Const General: cooperative Nutritional Appearance: obese morbidly obese Orientation/consciousness: patient oriented x3 HENMT Head: Yes normal to inspection, Yes normocephalic and Yes atraumatic Ears: TM's normal bilaterally Eyes General: appearance normal, both eyes and all related structures Alignment and Position: alignment normal and position normal Neck Neck: Yes normal visual inspection, Yes no lymphadenopathy and Yes supple Resp Effort & Inspection: normal respiratory effort Auscultation: clear to auscultation bilaterally Cardio Rate: regular rate Rhythm: regular rhythm Heart sounds: S1 normal heart sound present, S2 normal heart sound present and no murmurs GI Palpation (GI): Soft to palpation and nontender Auscultation: normal bowel sounds General: Yes no CVA tenderness Back/Spine/Pelvis Back: no CVA tenderness Skin Rashes: no rashes Neuro General: patient oriented x3, moves all extremities, no focal motor deficits and deep tendon reflexes 2+ bilaterally Romberg Test: Negative Extrem Other: left foot plantar aaspect from MTP joints running posteriorly to heel with positive sensation, 1st MTP joints running anteriorly including toes with no sensation, onychomycosis noted bilat Psych Appearance: grossly normal Mental Status: mental status grossly normal Speech and movement: Normal speech and movement present Affect: normal affect Attitude: cooperative Thought process: Normal thought process present Thought content: Normal thought content present Insight: Good insight present (Psych) Judgement: Good judgement present (Psych) Assessment and Plan Assessment & Plan (1) Anemia: Code(s): D64.9 - Anemia, unspecified Plan: FIT testing ordered, no known vag or GI bleeding (2) Elevated serum creatinine: Code(s): R79.89 - Other specified abnormal findings of blood chemistry Plan: referring to nephrology, stressed importance of hydration (3) Obesity: Code(s): E66.9 - Obesity, unspecified (4) Fatigue: Code(s): R53.83 - Other fatigue Plan: anemia, referred to sleep medicine as well. (5) Encounter for routine adult physical exam with abnormal findings: Code(s): Z00.01 - Encounter for general adult medical examination with abnormal findings Plan The patient agreed to the use of a biomedical equipment support specialist for this encounter. Scribed for DARVIN Saleh by Geena Baxter biomedical equipment support specialist, on 06/23/2024 at 13:15 EST. Orders: Orders Hemoglobin Electrophoresis Today D64.9 - Anemia, unspecified Complete Blood Count Auto Diff Today D64.9 - Anemia, unspecified, R79.89 - Other specified abnormal findings of blood chemistry Comprehensive Met. Panel Today D64.9 - Anemia, unspecified, R79.89 - Other specified abnormal findings of blood chemistry UA CC w/rflx Micro + Cult Today D64.9 - Anemia, unspecified, R79.89 - Other specified abnormal findings of blood chemistry Reticulocyte Count Today D64.9 - Anemia, unspecified FITS Today D64.9 - Anemia, unspecified Ferritin Today D64.9 - Anemia, unspecified IRON PROFILE Today D64.9 - Anemia, unspecified Vitamin B12 and Folate Today D64.9 - Anemia, unspecified Referrals Sleep Medicine Referral E66.9 - Obesity, unspecified, R53.83 - Other fatigue Nephrology Referral R79.89 - Other specified abnormal findings of blood chemistry Medications: New cefuroxime axetil 250 mg PO BID 14 tabs 0RF 7 days Coding Level of Care Code Est Pt Prev Care 40-64y(03099) Diagnoses Anemia D64.9 Elevated serum creatinine R79.89 Obesity E66.9 Fatigue R53.83 Encounter for routine adult physical exam with abnormal findings Z00.01
== END 2024-06-23 13:56 | disposition home or self-care (01) ==
PROVIDERS: PCP Nurse Practitioner Family; Visit Provider Nurse Practitioner Family
DX: Z00.01 Encounter for general adult medical examination with abnormal findings (principal); R79.89 Other specified abnormal findings of blood chemistry; E66.9 Obesity, unspecified; Z68.42 Body mass index [BMI] 45.0-49.9, adult; D64.9 Anemia, unspecified; R53.83 Other fatigue

== ENCOUNTER → 2024-06-23 13:07 | Outpatient (BNVA) | payer BC, SELFPAY | PROVIDERS: PCP Nurse Practitioner Family; Visit Provider Nurse Practitioner Family | DX: Z00.01 Encounter for general adult medical examination with abnormal findings (principal); D64.9 Anemia, unspecified; R79.89 Other specified abnormal findings of blood chemistry; E66.9 Obesity, unspecified; Z68.42 Body mass index [BMI] 45.0-49.9, adult; R53.83 Other fatigue ==

== ENCOUNTER 2024-06-25 15:50 | Outpatient (AMB) | payer BC, SELFPAY ==
--- NOTE | 2024-06-25 15:50 | HO.NEPHOV ---
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 Accompanied by: Self / Same As Patient Allergies No Known Allergies Allergy (Verified 06/25/24 15:54) Medication List - Last Reconciled 06/25/24 by Abhijit Ramires MD acetaminophen ER 650 mg PO Q12H PRN albuterol sulfate 90 mcg/actuation 2 puffs inhalation Q4-6H PRN amlodipine 5 mg PO DAILY aspirin 81 mg PO DAILY atorvastatin 80 mg PO DAILY blood-glucose sensor (Dexcom G6 Sensor device) As directed blood-glucose transmitter (Dexcom G6 Transmitter device) As directed bupropion HCl XL 300 mg PO DAILY cefuroxime axetil 250 mg PO BID 7 days evolocumab (Repatha SureClick) 140 mg subcut Q2W 90 days fluticasone propion-salmeterol 250-50 mcg/dose (Wixela Inhub) 1 inh inhalation Q12H 90 days gabapentin 300 mg PO TID hydroxyzine HCl 10 mg PO DAILY PRN insulin aspart (niacinamide) 100 unit/mL (3 mL) (Fiasp FlexTouch U-100 Insulin) 10 units subcut TID insulin glargine (Basaglar KwikPen U-100 Insulin) 50 units subcut QPM ipratropium bromide 2 sprays intranasal BID ipratropium-albuterol 0.5 mg-3 mg(2.5 mg base)/3 mL 3 mL inhalation Q6H PRN lisinopril 10 mg See Protocol PO DAILY pantoprazole 20 mg PO DAILY@0630 HPI Comments Details: Ewelina is a pleasant 59 year woman with a history of longstanding diabetes mellitus. She has been referred for evaluation of CKD. Baseline creatinine is around 1.0-1.2 mg/dL about a year ago. In March of 2024 she was prescribed Ozempic. After few doses she was sick and she was having vomiting. She was hospitalized and received IV hydration. In March creatinine peaked to 2.2 mg/dL. Creatinine has been staying around 1.6 mg/dL for the last 3 months and she has been for further evaluation. She has had recurrent UTIs. The recent abdominal ultrasonogram showed unremarkable kidneys without any hydronephrosis. She has a history of occipital neuralgia. History of flu significant obesity in the hypertension. History of Charcot joint [facility] Medical History Carotid stenosis, bilateral Elevated serum GGT level Atherosclerotic cardiovascular disease Non-ST elevation PA (NSTEMI) Action tremor Chronic headaches GERD (gastroesophageal reflux disease) Hyperlipidemia Depression Pneumonia Sepsis Barretts esophagus Dyslipidemia HTN (hypertension) Charcot's joint of foot Diabetes Surgical History H/O foot surgery Hx of cholecystectomy H/O: hysterectomy Family History Son Substance use disorder Father Substance use disorder Mother Substance use disorder Family/Other Substance use disorder Maternal Grandfather Heart problem Maternal Uncle Heart problem Paternal Grandmother Heart problem Sister Heart problem Social History Household Members: None Housing: Condominium Do you presently have visiting nurse or other home services: No Alcohol intake: never Patient Tobacco Use Status: Never used Tobacco e-Cigarette/Vaping Use: Never Used Second Hand Smoke Exposure: No Advance Directives Date on File: 07/25/23 service: No Current occupational status: employed 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 Current occupational exposures/hazards: No Cognitive needs: No Hearing needs: No Vision needs: No Review of Systems Const Denies fever(s) and Denies weight loss Card Denies chest pain Resp Denies cough and Denies hemoptysis GI Denies abdominal pain, Denies diarrhea and Denies nausea Musc Denies back pain Neuro Denies focal weakness Physical Exam Vital Signs: Last Vital Signs Pulse 104 H 06/25/24 15:51 BP 120/70 06/25/24 16:08 Pulse Ox 96 06/25/24 15:51 Oxygen Delivery Method Room Air 06/25/24 15:51 BMI result Body Mass Index 47.4 Const Other: Obese General: comfortable; No acute distress Orientation/consciousness: patient oriented x3 Eyes General: appearance normal, both eyes and all related structures Visual Murdock: normal visual murdock by confrontation Neck Neck: Yes supple and Yes no JVD Resp Effort & Inspection: normal respiratory effort and respiratory effort not decreased Auscultation: rhonchi Cardio Palpation: no palpable S3 and no palpable S4 Heart sounds: no rubs GI Inspection: Yes normal to inspection Palpation (GI): Soft to palpation Percussion: Yes normal to percussion Auscultation: normal bowel sounds General: Yes no CVA tenderness Back/Spine/Pelvis Back: no CVA tenderness Skin General skin exam: no petechiae and no purpura Neuro General: patient oriented x3 and no focal motor deficits Extrem General: No clubbing and No edema Results Reviewed Nephrology Results: Hgb 10.6 g/dl (12.0-16.0) L 06/21/24 WBC 7.3 X10*3/uL (4.8-10.8) 06/21/24 Plt Count 278 X10*3/uL (160-400) 06/21/24 Sodium 140 mmol/L (135-145) 06/21/24 Potassium 5.2 mmol/L (3.3-5.1) H 06/21/24 Chloride 111 mmol/L (96-108) H 06/21/24 Carbon Dioxide 23 mmol/L (22-29) 06/21/24 BUN 28 mg/dL (9-16) H 06/21/24 Creatinine 1.64 mg/dL (0.5-1.4) H 06/21/24 Calcium 9.1 mg/dL (8.4-10.2) 06/21/24 Urine Protein 100 (2+) mg/dL (Neg-Trace) H 06/21/24 Assessment & Plan Assessment & Plan (1) CKD (chronic kidney disease): Code(s): N18.9 - Chronic kidney disease, unspecified Category: Medical (2) Obesity: Code(s): E66.9 - Obesity, unspecified Category: Medical (3) Anemia: Code(s): D64.9 - Anemia, unspecified Category: Medical (4) Hyperkalemia: Code(s): E87.5 - Hyperkalemia Category: Medical (5) HTN (hypertension): Code(s): I10 - Essential (primary) hypertension Category: Medical Plan Ewelina is a pleasant 59 woman with CKD 3. Differential diagnosis would include diabetic nephropathy. She has significant proteinuria most likely due to diabetic nephropathy. Nondiabetic causes should be ruled out. Has been recent bump in serum creatinine about 3 months ago. She could have sustained addition tubular damage. Based on recent imaging she has no evidence of obstructive uropathy. Mild hypokalemia in the setting of CKD. Hypertension blood pressure well controlled. Recommendation Keep on low-sodium diet. She should stay on low-potassium diet as well. Recheck potassium and if needed I will add Lokelma. I will continue the YARED inhibitor for renal protection. Maintain blood pressure less than 130/80 Continue to avoid nephrotoxic agents including NSAIDs. Goal is to slow the progression of renal disease She returned to office once the baseline workup is completed as outlined below. Further workup will be based on the outcome of these investigations . Orders: Orders Creatinine Urine Today N18.9 - Chronic kidney disease, unspecified Basic Metabolic Panel Today N18.9 - Chronic kidney disease, unspecified Total Protein Urine Random Today N18.9 - Chronic kidney disease, unspecified UA and rflx microscopic Today N18.9 - Chronic kidney disease, unspecified Parathyroid Hormone Intact Today N18.9 - Chronic kidney disease, unspecified Complete Blood Count Auto Diff 1 Month N18.9 - Chronic kidney disease, unspecified Complement C3 Today N18.9 - Chronic kidney disease, unspecified Complement C4 Today N18.9 - Chronic kidney disease, unspecified Protein Electrophoresis, Serum Today N18.9 - Chronic kidney disease, unspecified Anti DNA DS Antibody Today N18.9 - Chronic kidney disease, unspecified Coding Level of Care Code New Pt Level 5 (25428) Diagnoses CKD (chronic kidney disease) N18.9 Obesity E66.9 Anemia D64.9 Hyperkalemia E87.5 HTN (hypertension) I10
[2024-06-25 15:51] VITALS: BP 138/78; PULSE 104; O2SAT 96; BMI 47.4
[2024-06-25 16:08] VITALS: BP 120/70
== END 2024-06-25 16:18 | disposition home or self-care (01) ==
PROVIDERS: PCP Nurse Practitioner Family; Referring Provider Nurse Practitioner Family; Visit Provider Internal Medicine Hypertension Specialist
DX: I12.9 Hypertensive chronic kidney disease with stage 1 through stage 4 chronic kidney disease, or unspecified chronic kidney disease (principal); E11.22 Type 2 diabetes mellitus with diabetic chronic kidney disease; N18.30 Chronic kidney disease, stage 3 unspecified; D63.1 Anemia in chronic kidney disease; E87.5 Hyperkalemia; E66.9 Obesity, unspecified
CPT/HCPCS: 99204

== ENCOUNTER → 2024-06-25 15:50 | Outpatient (BNVA) | payer BC, SELFPAY | PROVIDERS: PCP Nurse Practitioner Family; Referring Provider Nurse Practitioner Family; Visit Provider Internal Medicine Hypertension Specialist ==

== ENCOUNTER 2024-07-23 14:47 | Outpatient (AMB) | payer BC, SELFPAY ==
[2024-07-23 14:48] VITALS: BP 122/78; PULSE 94; O2SAT 98; BMI 46.4
--- NOTE | 2024-07-23 14:48 | HO.NEPHOV_ITS ---
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 Accompanied by: Self / Same As Patient Allergies No Known Allergies Allergy (Verified 07/23/24 14:50) Medication List - Last Reconciled 07/23/24 by Abhijit Ramires MD acetaminophen ER 650 mg PO Q12H PRN albuterol sulfate 90 mcg/actuation 2 puffs inhalation Q4-6H PRN amlodipine 5 mg PO DAILY aspirin 81 mg PO DAILY atorvastatin 80 mg PO DAILY blood-glucose sensor (Dexcom G6 Sensor device) As directed blood-glucose transmitter (Dexcom G6 Transmitter device) As directed bupropion HCl XL 300 mg PO DAILY evolocumab (Repatha SureClick) 140 mg subcut Q2W 90 days fluticasone propion-salmeterol 250-50 mcg/dose (Wixela Inhub) 1 inh inhalation Q12H 90 days gabapentin 300 mg PO TID hydroxyzine HCl 10 mg PO DAILY PRN insulin aspart (niacinamide) 100 unit/mL (3 mL) (Fiasp FlexTouch U-100 Insulin) 10 units subcut TID insulin glargine (Basaglar KwikPen U-100 Insulin) 50 units subcut QPM ipratropium bromide 2 sprays intranasal BID ipratropium-albuterol 0.5 mg-3 mg(2.5 mg base)/3 mL 3 mL inhalation Q6H PRN lisinopril 10 mg See Protocol PO DAILY pantoprazole 20 mg PO DAILY@0630 HPI Comments Details: Ewelina is a pleasant 59 year woman with a history of longstanding diabetes mellitus. She has been referred for evaluation of CKD. Baseline creatinine is around 1.0-1.2 mg/dL about a year ago. In March of 2024 she was prescribed Ozempic. After few doses she was sick and she was having vomiting. She was hospitalized and received IV hydration. In March creatinine peaked to 2.2 mg/dL. Creatinine has been staying around 1.6 mg/dL for the last 3 months and she has been for further evaluation. She has had recurrent UTIs. The recent abdominal ultrasonogram showed unremarkable kidneys without any hydronephrosis. She has a history of occipital neuralgia. History of flu significant obesity in the hypertension. History of Charcot joint 07/23/24 Doing well Still has urinary symptoms and feels she might have UTI [facility] Medical History Carotid stenosis, bilateral Elevated serum GGT level Atherosclerotic cardiovascular disease Non-ST elevation [place] (NSTEMI) Action tremor Chronic headaches GERD (gastroesophageal reflux disease) Hyperlipidemia Depression Pneumonia Sepsis Barretts esophagus Dyslipidemia HTN (hypertension) Charcot's joint of foot Diabetes Surgical History H/O foot surgery Hx of cholecystectomy H/O: hysterectomy Family History Son Substance use disorder Father Substance use disorder Mother Substance use disorder Family/Other Substance use disorder Maternal Grandfather Heart problem Maternal Uncle Heart problem Paternal Grandmother Heart problem Sister Heart problem Social History Household Members: None Housing: Condominium Do you presently have visiting nurse or other home services: No Alcohol intake: never Patient Tobacco Use Status: Never used Tobacco e-Cigarette/Vaping Use: Never Used Second Hand Smoke Exposure: No Advance Directives Date on File: 07/25/23 service: No Current occupational status: employed 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 Current occupational exposures/hazards: No Cognitive needs: No Hearing needs: No Vision needs: No Physical Exam Vital Signs: Last Vital Signs Pulse 94 07/23/24 14:48 Pulse Ox 98 07/23/24 14:48 Oxygen Delivery Method Room Air 07/23/24 14:48 BMI result Body Mass Index 46.4 Results Reviewed Nephrology Results: Hgb 10.6 g/dl (12.0-16.0) L 06/21/24 WBC 7.3 X10*3/uL (4.8-10.8) 06/21/24 Plt Count 278 X10*3/uL (160-400) 06/21/24 Sodium 140 mmol/L (135-145) 06/21/24 Potassium 5.2 mmol/L (3.3-5.1) H 06/21/24 Chloride 111 mmol/L (96-108) H 06/21/24 Carbon Dioxide 23 mmol/L (22-29) 06/21/24 BUN 28 mg/dL (9-16) H 06/21/24 Creatinine 1.64 mg/dL (0.5-1.4) H 06/21/24 Calcium 9.1 mg/dL (8.4-10.2) 06/21/24 Urine Protein 100 (2+) mg/dL (Neg-Trace) H 06/21/24 Assessment & Plan Assessment & Plan (1) CKD (chronic kidney disease): Code(s): N18.9 - Chronic kidney disease, unspecified Category: Medical (2) Obesity: Code(s): E66.9 - Obesity, unspecified Category: Medical (3) Anemia: Code(s): D64.9 - Anemia, unspecified Category: Medical (4) Hyperkalemia: Code(s): E87.5 - Hyperkalemia Category: Medical (5) HTN (hypertension): Code(s): I10 - Essential (primary) hypertension Category: Medical Plan Ewelina is a pleasant 59 woman with CKD 3. Differential diagnosis would include diabetic nephropathy. She has significant proteinuria most likely due to diabetic nephropathy. Nondiabetic causes seem unlikely based on serologies BAselien creatinine is around 1.4 to 1.6 Based on recent imaging she has no evidence of obstructive uropathy. Mild hypokalemia in the setting of CKD. Hypertension blood pressure well controlled. Recommendation Keep on low-sodium diet. She should stay on low-potassium diet as well. I will continue the YARED inhibitor for renal protection. Maintain blood pressure less than 130/80 Will benefit from weight loss Maintian A1C < 7% Continue to avoid nephrotoxic agents including NSAIDs. Goal is to slow the progression of renal disease Unable to use SGLT-2 inhibitor due to h/o DKA Check urine c/s for possible UTI . . Orders: Orders Urine Culture Today D64.9 - Anemia, unspecified, N18.9 - Chronic kidney disease, unspecified Basic Metabolic Panel 4 Months D64.9 - Anemia, unspecified, N18.9 - Chronic kidney disease, unspecified Complete Blood Count Auto Diff 4 Months D64.9 - Anemia, unspecified, N18.9 - Chronic kidney disease, unspecified Coding Level of Care Code Est Pt Level 4 (92242) Diagnoses CKD (chronic kidney disease) N18.9 Obesity E66.9 Anemia D64.9 Hyperkalemia E87.5 HTN (hypertension) I10
== END 2024-07-23 15:10 | disposition home or self-care (01) ==
PROVIDERS: PCP Nurse Practitioner Family; Visit Provider Internal Medicine Hypertension Specialist
DX: I12.9 Hypertensive chronic kidney disease with stage 1 through stage 4 chronic kidney disease, or unspecified chronic kidney disease (principal); N18.30 Chronic kidney disease, stage 3 unspecified; D63.1 Anemia in chronic kidney disease; E87.5 Hyperkalemia; E66.9 Obesity, unspecified
CPT/HCPCS: 99214

== ENCOUNTER → 2024-07-23 14:47 | Outpatient (BNVA) | payer BC, SELFPAY | PROVIDERS: PCP Nurse Practitioner Family; Visit Provider Internal Medicine Hypertension Specialist ==

== ENCOUNTER 2024-08-01 07:27 | Outpatient (REF) | payer BC, SELFPAY ==
[2024-08-01 09:16] LABS: MANUAL DIFF FLAG NO
[2024-08-01 10:25] LABS: Appearance Urine Clear; Color Urine Yellow; Glucose Urine UA 100 mg/dL (Negative); Leukocyte Esterase Urine Trace (Negative); Nitrite Urine Positive (Negative); PH 5.5 (5.0-9.0); UMIC TRIGGER UA YES; Urine Blood Moderate (2+) (Negative); Urine Ketones Negative (Negative); Urine Protein 100 (2+) mg/dL (Neg-Trace)
[2024-08-01 10:37] LABS: Basophils Absolute Auto 0.1 X10*3/uL (0.0-0.2); Basophils Percent Auto 0.7 % (0-2); Eosinophils Absolute Auto 0.4 X10*3/uL (0.0-0.4); Hematocrit 33.1 % (37.0-47.0); Hemoglobin 10.5 g/dl (12.0-16.0); Imm Gran Abs Auto 0.03 X10*3/uL (0.00-0.03); Imm Gran Pct Auto 0.3 % (0.0-0.4); Immature Retic Fraction 12.8 % (3.0-15.9); Lymphocytes Absolute Auto 2.5 X10*3/uL (1.2-4.9); Lymphocytes Percent Auto 28.8 % (20-40); Mean Corpuscular HGB Conc 31.7 g/dl (31.0-35.0); Mean Corpuscular Hemoglobin 27.3 pg (27.0-33.0); Mean Corpuscular Volume 86.2 fL (80.0-98.0); Mean Platelet Volume 9.6 fL (9.4-12.3); Monocytes Absolute Auto 0.6 X10*3/uL (0.1-1.2); Monocytes Percent Auto 6.5 % (2-11); Neutrophils Absolute Auto 5.1 x10*3/uL (2.0-8.3); Neutrophils Percent Auto 58.7 % (45-73); Platelet Count 274 X10*3/uL (160-400); Red Blood Count 3.84 X10*6/uL (4.20-5.50); Red Cell Distribution Width 13.5 % (11.0-16.0); Retic HGB Equivalent 29.6 pg (30.0-35.0); Reticulocyte Percent 1.7 % (0.5-1.8); Reticulocytes Absolute 0.065 X10*6/uL (0.026-0.095); White Blood Count 8.8 X10*3/uL (4.8-10.8)
[2024-08-01 11:03] LABS: Alanine Aminotransferase 46 U/L (0-31); Albumin Level 3.6 g/dL (3.5-5.0); Alkaline Phosphatase 165 U/L (39-117); Aspartate Amino Transferase 32 U/L (5-31); Bilirubin Direct < 0.2 mg/dL (0.0-0.5); Bilirubin Total 0.2 mg/dL (0.0-1.0); Total Protein 6.8 g/dL (6.5-8.0)
[2024-08-01 11:03] LABS: Bacteria Urine 4+ (None Seen); Hyaline Casts Urine 0-2 /LPF (0-2); RBC Urine 0-2 /HPF (0-2)
[2024-08-01 11:10] LABS: Creatinine Urine 125.92 mg/dL; Total Protein Urine Random 121 mg/dL (<12)
[2024-08-01 11:32] LABS: Ferritin 52 ng/mL (10-250)
[2024-08-01 11:34] LABS: Alanine Aminotransferase 47 U/L (0-31); Albumin Level 3.6 g/dL (3.5-5.0); Alkaline Phosphatase 164 U/L (39-117); Anion Gap 11 (12-20); Aspartate Amino Transferase 29 U/L (5-31); Bilirubin Total 0.2 mg/dL (0.0-1.0); Blood Urea Nitrogen 24 mg/dL (9-16); Calcium 9.4 mg/dL (8.4-10.2); Carbon Dioxide 23 mmol/L (22-29); Chloride 110 mmol/L (96-108); Estimated Glomerular Filt Rate 32; Glucose Random 220 mg/dL (60-115); Iron 46 mcg/dL (30-160); Percent Iron Saturation 19 % (15-50); Potassium 4.7 mmol/L (3.3-5.1); Sodium 139 mmol/L (135-145); Total Iron Binding Capacity 248 mcg/dL (228-428); Total Protein 6.8 g/dL (6.5-8.0); Unsaturated Iron Binding 202 ug/dL
[2024-08-01 11:38] LABS: Parathyroid Hormone Intact 127.5 pg/mL (8.7-77.1)
[2024-08-01 11:54] LABS: Folate 6.9 ng/mL (> or = 4.0); Vitamin B12 304 pg/mL (200-900)
[2024-08-04 09:53] LABS: Complement C3 152 mg/dL (83-193)
[2024-08-04 15:14] LABS: Hematocrit 33.9 % (35.0-45.0); Hemoglobin 10.7 g/dL (11.7-15.5); MCH 27.6 pg (27.0-33.0); MCV 87.4 fL (80.0-100.0); RBC 3.88 Million/uL (3.80-5.10); RDW 13.4 % (11.0-15.0)
[2024-08-04 22:09] LABS: Prot Elec - Albumin 3.3 g/dL (3.8-4.8); Prot Elec - Alpha1 0.4 g/dL (0.2-0.3); Prot Elec - Alpha2 0.8 g/dL (0.5-0.9); Prot Elec - Beta 1 0.4 g/dL (0.4-0.6); Prot Elec - Beta 2 0.5 g/dL (0.2-0.5); Prot Elec - Total Protein 6.4 g/dL (6.1-8.1)
[2024-08-05 20:03] LABS: Anti DNA DS Antibody <1 IU/mL
[2024-08-06 10:04] LABS: Mitochondrial Antibodies NEGATIVE (NEGATIVE)
[2024-08-06 15:18] LABS: Immunoglobulin E 28 kU/L (<OR=114)
[2024-08-13 14:59] LABS: FIB-ALT 30 U/L (6-29); FIB-Alpha-2-Macroglobulin 265 mg/dL (106-279); FIB-Apolipoprotein A1 122 mg/dL (101-198); FIB-GGT 62 U/L (3-70); FIB-Haptoglobin 156 mg/dL (43-212); FIB-Total Bilirubin 0.2 mg/dL (0.2-1.2); Liver Fibrosis Score 0.28; Liver Fibrosis Stage F1; Nec Inflam Act Grade A0; Nec Inflam Act Score 0.14; Reference ID 5199277
== END 2024-08-01 07:28 | disposition home or self-care (01) ==
LOC: HO.LAB 07:27
PROVIDERS: Internal Medicine Hypertension Specialist; Nurse Practitioner Family; PCP Nurse Practitioner Family; Visit Provider Internal Medicine Gastroenterology
DX: N18.9 Chronic kidney disease, unspecified (principal); D64.9 Anemia, unspecified; R79.89 Other specified abnormal findings of blood chemistry; R74.8 Abnormal levels of other serum enzymes; Z91.09 Other allergy status, other than to drugs and biological substances; R82.79 Other abnormal findings on microbiological examination of urine
CPT/HCPCS: 36415; 80053; 80076; 81001; 81596; 82570; 82607; 82728; 82746; 82785; 83020; 83540; 83970; 84156; 84165; 85014; 85018; 85025; 85041; 85045; 86160; 86225; 86381; 87086; 87088; 87186

== ENCOUNTER 2024-08-01 07:27 | Outpatient (AMB) | payer BC, SELFPAY ==
--- NOTE | 2024-08-01 07:30 | A.OFFVIS_ITS ---
Vital Signs 08/01/24 07:37 Height 5 ft 5 in Weight 270 lb BMI 44.9 BP 161/60 H Blood Pressure Location Lt brachial Position Sitting Pulse 93 Intake Visit Reasons: abnormal level of other serum enzymes Intake Note: Patient new consult for abnormal level of other serum enzymes. Patient cc: constipation with some blood due a fistula and then diarrhea, some difficulty swallowing, ocasionally GERD with chest burning sensation and abdominal bloating. 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 Accompanied by: Self / Same As Patient Allergies No Known Allergies Allergy (Verified 07/23/24 14:50) Medication List - Last Reconciled 08/01/24 by Soniya Sullivan MD acetaminophen ER 650 mg PO Q12H PRN albuterol sulfate 90 mcg/actuation 2 puffs inhalation Q4-6H PRN amlodipine 5 mg PO DAILY aspirin 81 mg PO DAILY atorvastatin 80 mg PO DAILY blood-glucose sensor (Dexcom G6 Sensor device) As directed blood-glucose transmitter (Dexcom G6 Transmitter device) As directed bupropion HCl XL 300 mg PO DAILY evolocumab (Repatha SureClick) 140 mg subcut Q2W 90 days fluticasone propion-salmeterol 250-50 mcg/dose (Wixela Inhub) 1 inh inhalation Q12H 90 days gabapentin 300 mg PO TID hydroxyzine HCl 10 mg PO DAILY PRN insulin aspart (niacinamide) 100 unit/mL (3 mL) (Fiasp FlexTouch U-100 Insulin) 10 units subcut TID insulin glargine (Basaglar KwikPen U-100 Insulin) 50 units subcut QPM ipratropium bromide 2 sprays intranasal BID ipratropium-albuterol 0.5 mg-3 mg(2.5 mg base)/3 mL 3 mL inhalation Q6H PRN lisinopril 10 mg See Protocol PO DAILY pantoprazole 20 mg PO DAILY@0630 HPI HPI abnormal level of other serum enzymes: Details: Initial GI clinic visit for this 58-year-old female with history of hypertension, dyslipidemia, Amos's esophagus, type 2 diabetes, Charcot foot referred by Dr. Watts for evaluation of anemia and elevated LFTs TODAY'S VISIT: Patient cc: constipation with some blood due a fistula and then diarrhea, some difficulty swallowing, ocasionally GERD with chest burning sensation and abdominal bloating. Pt's labs show anemia. She denies any blood in stool or vaginal bleeding. Patient complains of intermittent heartburn, takes Protonix once daily. Intermittent dysphagia to solid (a few times a week) and sometimes notes difficulty swallowing her spit once in a while. Occasional regurgitation with episodes of dysphagia Pt denies symptoms of nausea, vomiting, change in appetite. Has gained 25 lbs over the past few months. Had serious health issues after COVID infection - ended up with sepsis, pneumonia, DKA in the ICU. Had a heart attack while in ICU. Uses a walker. Had diarrhea all the time and has been always constipated for the past year. Can go 3-4 days without a BM - on no medication. Denies recent black stools or rectal bleeding Patient denies major cardiac or pulmonary problems, loud snoring or sleep apnea Denies problems with anesthesia in the past - problems when she had her hysterectomy(20 yrs ago) and none since Takes a baby aspirin daily and denies being on chronic anticoagulation. DEnies smoking and takes ETOH one drink every few months. 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 Sister has benign polyps. Maternal great aunt had colon issues (? colon cancer) in her early 60's. PAST EGD/COLONOSCOPY: EGD and Colon in 2021 (at [facility]) - FU colon advised in 10 years EGD showed Amos's - advised FU EGD in 3 years. LABS IN [facility] : Reviewed - anemia, iron studies were normal Elevated ALk P with normal liver fraction - intermittent elevation of alkaline phosphatase since 08/2023 IMAGING STUDIES: 03/2024 ABD US SHOWED: Stable mildly dilated common bile duct at 0.7 cm is likely reservoir effect in setting of cholecystectomy. There is no intrahepatic biliary ductal dilatation. Recommend clinical correlation. Further evaluation with MRI abdomen without and with intravenous contrast including MRCP sequences is recommended if there is ongoing clinical concern for biliary obstruction ENDOSCOPIC STUDIES: [] PAST GI HISTORY BY REVIEW OF MEDICAL RECORDS: FORMERLY [facility], 1928–1983 Medical History (Updated 08/02/24 @ 15:58 by Soniya Sullivan MD) Carotid stenosis, bilateral Elevated serum GGT level Atherosclerotic cardiovascular disease Non-ST elevation [place] (NSTEMI) Action tremor Chronic headaches GERD (gastroesophageal reflux disease) Hyperlipidemia Depression Pneumonia Sepsis Barretts esophagus Dyslipidemia HTN (hypertension) Charcot's joint of foot Diabetes Surgical History (Updated 08/01/24 @ 07:36 by Lexi Kuhn) History of esophagogastroduodenoscopy (EGD) Hx of colonoscopy H/O foot surgery Hx of cholecystectomy H/O: hysterectomy Family History Son Substance use disorder Father Substance use disorder Mother Substance use disorder Family/Other Substance use disorder Maternal Grandfather Heart problem Maternal Uncle Heart problem Paternal Grandmother Heart problem Sister Heart problem Social History Household Members: None Housing: Condominium Do you presently have visiting nurse or other home services: No Alcohol intake: never Patient Tobacco Use Status: Never used Tobacco e-Cigarette/Vaping Use: Never Used Second Hand Smoke Exposure: No Advance Directives Date on File: 07/25/23 service: No Current occupational status: employed 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 Current occupational exposures/hazards: No Cognitive needs: No Hearing needs: No Vision needs: No Review of Systems Const Reports fatigue, Denies fever(s), Reports headache(s), Reports weight gain and Denies weight loss Eyes Denies eye discharge and Denies irritation ENT Reports Normal hearing present, Reports dysphagia, Denies dizziness, Reports headache(s) and Reports hoarseness (sometimes) Card Denies chest pain, Reports irregular heart rhythm (abnormal heart rhythm - fast), Denies leg edema and Reports dyspnea on exertion Resp Denies cough, Reports dyspnea on exertion and Denies wheezing GI Denies abdominal pain, Reports bloating, Denies change in bowel habits, Reports constipation, Reports dysphagia, Reports early satiety, Reports heartburn, Reports diarrhea and Reports other (loss of appetite) Denies difficulty voiding, Denies dysuria and Reports other (status post hysterectomy) Musc Denies back pain, Reports arthralgias and Reports other (arthritis) Skin/Breast Denies pruritus, Denies rash and Denies jaundice Neuro Reports Normal hearing present, Denies Abnormal speech present, Denies dizziness, Reports headache(s) and Denies seizure-like activity Psych Reports anxiety, Reports depression and Denies panic attacks Endo Denies cold intolerance, Reports fatigue, Denies flushing and Denies heat intolerance Gary/Lymph Denies easy bleeding and Denies easy bruising Aller/Immun Denies wheezing Physical Exam Vital Signs: Last Vital Signs Pulse 93 08/01/24 07:37 BP 161/60 H 08/01/24 07:37 BMI result Body Mass Index 44.9 Const General: no acute distress Nutritional Appearance: obese Orientation/consciousness: patient oriented x3 Limitations: ambulation with walker HEENT Head: Yes normal to inspection Ears: hearing grossly normal bilaterally Mouth: Normal oral and palatal mucosa present Eyes Sclerae: sclerae normal Pupils: Equal, round and reactive pupils present Neck Neck: Yes normal visual inspection Chest Chest palpation & inspection: normal inspection of the chest Resp Effort & Inspection: normal respiratory effort Auscultation: clear to auscultation bilaterally Cardio Palpation: normal PMI Rate: regular rate Rhythm: regular rhythm Heart sounds: S1 normal heart sound present, S2 normal heart sound present and no murmurs GI Inspection: Yes obesity Palpation (GI): Soft to palpation, nontender and No hepatosplenomegaly present Auscultation: normal bowel sounds Rectal Exam - Female: deferred Skin General skin exam: no rashes or lesions noted Neuro General: patient oriented x3, gait normal and moves all extremities Cranial nerves: Yes Equal, round and reactive pupils present and Yes Normal hearing present Speech: No Abnormal speech present Psych Appearance: grossly normal Mental Status: mental status grossly normal Assessment & Plan Assessment & Plan (1) Anemia: Code(s): D64.9 - Anemia, unspecified Category: Medical Qualifiers: Anemia type: iron deficiency (2) GERD (gastroesophageal reflux disease): Code(s): K21.9 - Gastro-esophageal reflux disease without esophagitis Category: Medical (3) Elevated serum GGT level: Code(s): R74.8 - Abnormal levels of other serum enzymes Category: Medical (4) Elevated alkaline phosphatase level: Code(s): R74.8 - Abnormal levels of other serum enzymes Category: Medical (5) Dilated cbd, acquired: Code(s): K83.8 - Other specified diseases of biliary tract Category: Medical (6) Dysphagia: Code(s): R13.10 - Dysphagia, unspecified Category: Medical Qualifiers: Dysphagia type: pharyngoesophageal phase Qualified Code(s): R13.14 - Dysphagia, pharyngoesophageal phase Plan 58-year-old female with history of hypertension, dyslipidemia, Amos's esophagus, type 2 diabetes, morbid obesity, Charcot foot referred by Dr. Watts for evaluation of anemia and elevated LFTs Pt's labs show anemia. She denies any blood in stool or vaginal bleeding. Patient complains of intermittent heartburn, takes Protonix once daily. Intermittent dysphagia to solid (a few times a week) and sometimes notes difficulty swallowing her spit once in a while. Has gained 25 lbs over the past few months. Had serious health issues after COVID infection - ended up with sepsis, pneumonia, DKA in the ICU and had a heart attack while in ICU. Uses a walker. Patient denies major cardiac or pulmonary problems, loud snoring or sleep apnea Denies problems with anesthesia in the past - problems when she had her hysterectomy(20 yrs ago) and none since Takes a baby aspirin daily and denies being on chronic anticoagulation. Denies smoking and takes ETOH one drink every few months. PAST EGD/COLONOSCOPY: EGD and Colon in 2021 (at [facility]) - FU colon advised in 10 years EGD showed Amos's - advised FU EGD in 3 years. PLAN: 1. Repeat LFTs and check labs for FU of elevated ALk P levels and rule out liver fibrosis 2. Barium swallow for evaluation of dysphagia 3. Schedule EGD for FU of Amos's - spring. 4. MRCP to FU on CBD dilation noted on abd US 5. Start Miralax every other day for constipation and increase to daily if needed. FU in 3 months Orders: Orders Mitochondrial Antibody 08/01/24 R74.8 - Abnormal levels of other serum enzymes FL barium swallow 08/01/24 R13.10 - Dysphagia, unspecified MR MRCP 08/01/24 K83.8 - Other specified diseases of biliary tract, R74.8 - Abnormal levels of other serum enzymes Liver Panel 08/01/24 R74.8 - Abnormal levels of other serum enzymes Liver Fibrosis Pnl 08/01/24 R74.8 - Abnormal levels of other serum enzymes Medications: New polyethylene glycol 3350 (Miralax) 17 grams PO DAILY 30 days 510 grams 3RF K59.09 - Other constipation Coding Level of Care Code New Pt Level 4 (27802) Diagnoses Anemia D64.9 Anemia type: iron deficiency GERD (gastroesophageal reflux disease) K21.9 Elevated serum GGT level R74.8 Elevated alkaline phosphatase level R74.8 Dilated cbd, acquired K83.8 Pharyngoesophageal dysphagia R13.14 Dysphagia type: pharyngoesophageal phase Time Spent (min) 35
[2024-08-01 07:37] VITALS: BP 161/60; PULSE 93; BMI 44.9
== END 2024-08-01 08:17 | disposition home or self-care (01) ==
LOC: HO.HGI 07:28
PROVIDERS: PCP Nurse Practitioner Family; Visit Provider Internal Medicine Gastroenterology
DX: D64.9 Anemia, unspecified (principal); K21.9 Gastro-esophageal reflux disease without esophagitis; R74.8 Abnormal levels of other serum enzymes; K83.8 Other specified diseases of biliary tract; R13.14 Dysphagia, pharyngoesophageal phase
CPT/HCPCS: 99204

== ENCOUNTER 2024-09-16 13:13 | Outpatient (AMB) | payer BC, SELFPAY ==
--- OUTSIDE RECORDS SUMMARY | 2024-09-16 13:15 | XMS_ITS ---
Author Name [facility] Organization Unknown History of Medication Use Medication Directions Dispensed Refills Start Date End Date Stat Mounjaro 2.5 MG/0.5ML pen-injector Inject 1 pen(s) (2.5 mg total) under the skin once a week. [email or web address]/06/2024 09/30/9999 active propranolol (INDERAL) 40 MG tablet 1 tablet (40 mg total) by Mouth/Oral Cavity route every 12 hours. 08/06/2024 09/30/9999 active Continuous Glucose Sensor (Dexcom G6 Sensor) [facility] [place] 1 SENSOR EVERY 10 DAYS 08/06/2024 09/30/9999 active primidone (MYSOLINE) 50 MG tablet Take 1 tablet (50 mg total) by mouth. 08/06/2024 09/30/9999 active ipratropium-albuterol (DUONEB) 0.5-2.5 mg/3 mL nebulizer solution 3 ML INHALED EVERY 6 HOURS NEEDED FOR WHEEZING 01/11/2024 active ipratropium (ATROVENT) 0.03 % nasal spray USE 2 SPRAYS IN EACH NOSTIL TWICE DAILY 01/11/2024 active albuterol (PROVENTIL HFA; VENTOLIN HFA) 108 (90 Base) MCG/ACT inhaler INHALE 2 PUFFS EVERY 4 TO 6 HOURS NEEDED FOR SHORTNESS OF BREATH OR FOR WHEEZE 01/11/2024 active aspirin enteric coated (ECOTRIN LOW STRENGTH) 81 MG EC tablet Take 1 tablet (81 mg total) by mouth daily. 01/11/2024 active Mounjaro 2.5 MG/0.5ML pen-injector Inject 1 pen(s) (2.5 mg total) under the skin once a week. [email or web address]/11/2024 active traMADol 25 MG Tab Take 25 mg by mouth 4 times daily (every 6 hours) as needed for severe pain. 01/11/2024 active Pulmicort Flexhaler 90 MCG/ACT inhaler Inhale 1 puff 2 (two) times a day. 01/11/2024 active amLODIPine (NORVASC) 5 MG tablet Take 1 tablet (5 mg total) by mouth daily. 01/11/2024 active insulin glargine (insulin glargine, BASAGLAR KWIKPEN,) 100 units/mL prefilled pen injection Inject 50 Units under the skin nightly. 08/03/2023 active acetaminophen (TYLENOL) 650 MG CR tablet Take 650 mg by mouth 2 times daily (every 12 hours) as needed. 08/03/2023 active traMADol (ULTRAM) 50 MG tablet Take 50 mg by mouth 4 times daily (every 6 hours) as needed. Patient reports not taking secondary to dizziness 08/22/2023 active hyoscyamine (LEVSIN) 0.125 MG tablet Take 0.125 mg by mouth 2 (two) times a day as needed. 08/03/2023 active hydrOXYzine HCl (ATARAX) 10 MG tablet Take 10 mg by mouth daily as needed. 08/03/2023 active evolocumab (REPATHA SURECLICK) 140 MG/ML auto-injector Inject 140 mg under the skin every 14 days (2 weeks). 09/13/2023 active hydrOXYzine HCl (ATARAX) 10 MG tablet Take 10 mg by mouth daily as needed. 08/03/2023 active buPROPion (WELLBUTRIN XL) 300 MG 24 hr tablet Take 300 mg by mouth every morning. 08/03/2023 active atorvastatin (LIPITOR) 80 MG tablet Take 80 mg by mouth daily. 08/03/2023 active insulin aspart (NovoLOG FlexPen) 100 UNIT/ML prefilled pen injection Inject 1-6 Units under the skin 3 (three) times a day before meals. Patient reports utilizing sliding scale 08/03/2023 active gabapentin (NEURONTIN) 300 MG capsule Take 300 mg by mouth 3 (three) times a day. 08/03/2023 active lisinopril (PRINIVIL,ZeSTRIL) 10 MG tablet Take 10 mg by mouth daily. 08/03/2023 active fluconazole (diFLUcan) 150 MG tablet Take 150 mg by mouth once. 08/24/2023 active PANTOprazole (PROTONIX) 20 MG tablet Take 20 mg by mouth daily. 08/03/2023 active levoFLOXacin (LEVAQUIN) 750 MG tablet Take 750 mg by mouth daily. 08/03/2023 active traZODone (DESYREL) 100 MG tablet Take 100 mg by mouth nightly. 08/03/2023 active Problems Problem Status Onset Date Problem Type Date of Resoluti on Source Carotid artery stenosis without cerebral infarction, bilateral active 2024-01-08 ProblemAct [facility] Headache active 2024-01-06 ProblemAct [facility] Occipital neuralgia of left side active 2024-01-08 ProblemAct [facility] Carotid artery plaque active 2024-01-08 ProblemAct [facility]
[2024-09-16 13:27] VITALS: BP 122/70; PULSE 88; O2SAT 98; BMI 48.0
--- NOTE | 2024-09-16 13:27 | MHC.OFFWIV ---
Intake Vital Signs 09/16/24 13:27 Height 5 ft 5 in Weight 288 lb 6 oz BMI 48.0 BP 122/70 Blood Pressure Location Rt brachial Position Sitting Pulse 88 Pulse Source Pulse Oximeter Pulse Oximetry (%) 98 Oxygen Delivery Method Room Air Intake Visit Reasons: EP ? UTI [phone] Patient Tobacco Use Status: Never used Tobacco Allergies No Known Allergies Allergy (Verified 09/16/24 13:27) Medication List - Last Reconciled 09/16/24 by Herrera Lopez MD acetaminophen ER 650 mg PO Q12H PRN albuterol sulfate 90 mcg/actuation 2 puffs inhalation Q4-6H PRN amlodipine 5 mg PO DAILY aspirin 81 mg PO DAILY atorvastatin 80 mg PO DAILY blood-glucose sensor (nkf-pharma G6 Sensor device) As directed blood-glucose transmitter (Dexcom G6 Transmitter device) As directed bupropion HCl XL 300 mg PO DAILY evolocumab (Repatha SureClick) 140 mg subcut Q2W 90 days fluticasone propion-salmeterol 250-50 mcg/dose (Wixela Inhub) 1 inh inhalation Q12H 90 days gabapentin 300 mg PO TID hydroxyzine HCl 10 mg PO DAILY PRN insulin aspart (niacinamide) 100 unit/mL (3 mL) (Fiasp FlexTouch U-100 Insulin) 10 units subcut TID insulin glargine (Basaglar KwikPen U-100 Insulin) 50 units subcut QPM ipratropium bromide 2 sprays intranasal BID ipratropium-albuterol 0.5 mg-3 mg(2.5 mg base)/3 mL 3 mL inhalation Q6H PRN lisinopril 10 mg See Protocol PO DAILY pantoprazole 20 mg PO DAILY@0630 polyethylene glycol 3350 (Miralax) 17 grams PO DAILY 30 days HPI EP ? UTI [phone] HPI Details Patient is a 59-year-old morbidly obese patient with diabetes mellitus came in today to be evaluated for possible UTI Complaining of dysuria and frequency of urination Patient says that she has been having recurrent UTI since summer of this year Last time was in June, reviewing her chart I see that culture grew E coli sensitive to Macrobid -UA shows positive leuk esterase and blood Medication allergies: None Macrobid sent to be taken b.i.d. for 7 days I have also placed a referral for to be evaluated by Urology Review of system negative for fever chills nausea vomiting new back pain PFSH Medical History Carotid stenosis, bilateral Elevated serum GGT level Atherosclerotic cardiovascular disease Non-ST elevation LA (NSTEMI) Action tremor Chronic headaches GERD (gastroesophageal reflux disease) Hyperlipidemia Depression Pneumonia Sepsis Barretts esophagus Dyslipidemia HTN (hypertension) Charcot's joint of foot Diabetes Surgical History History of esophagogastroduodenoscopy (EGD) Hx of colonoscopy H/O foot surgery Hx of cholecystectomy H/O: hysterectomy Family History Son Substance use disorder Father Substance use disorder Mother Substance use disorder Family/Other Substance use disorder Maternal Grandfather Heart problem Maternal Uncle Heart problem Paternal Grandmother Heart problem Sister Heart problem Social History Household Members: None Housing: Condominium Do you presently have visiting nurse or other home services: No Alcohol intake: never Patient Tobacco Use Status: Never used Tobacco e-Cigarette/Vaping Use: Never Used Second Hand Smoke Exposure: No Advance Directives Date on File: 07/25/23 service: No Current occupational status: employed 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 Current occupational exposures/hazards: No Cognitive needs: No Hearing needs: No Vision needs: No Review of Systems Const All systems reviewed & are unremarkable except as noted in HPI and below Physical Exam Vital Signs: Last Vital Signs Pulse 88 09/16/24 13:27 BP 122/70 09/16/24 13:27 Pulse Ox 98 09/16/24 13:27 Oxygen Delivery Method Room Air 09/16/24 13:27 BMI result Body Mass Index 48.0 Const General: no acute distress Orientation/consciousness: patient oriented x3 Eyes General: appearance normal, both eyes and all related structures Resp Effort & Inspection: normal respiratory effort and able to speak in complete sentences General: Yes no CVA tenderness Back/Spine/Pelvis Back: no CVA tenderness Neuro General: patient oriented x3 Psych Mental Status: mental status grossly normal Assessment & Plan Assessment & Plan (1) Recurrent UTI: Code(s): N39.0 - Urinary tract infection, site not specified Plan Patient is a 59-year-old morbidly obese patient with diabetes mellitus came in today to be evaluated for possible UTI Complaining of dysuria and frequency of urination Patient says that she has been having recurrent UTI since summer of this year Last time was in June, reviewing her chart I see that culture grew E coli sensitive to Macrobid -UA shows positive leuk esterase and blood Medication allergies: None Macrobid sent to be taken b.i.d. for 7 days I have also placed a referral for to be evaluated by Urology Review of system negative for fever chills nausea vomiting new back pain Orders: Referrals Urology Referral N39.0 - Urinary tract infection, site not specified Medications: New nitrofurantoin monohyd/m-cryst 100 mg (Macrobid) must administer with a meal/food 100 mg PO Q12H 14 caps 0RF 7 days Coding Level of Care Code Est Pt Level 3 (31819) Diagnoses Recurrent UTI N39.0
== END 2024-09-16 14:03 | disposition home or self-care (01) ==
PROVIDERS: PCP Nurse Practitioner Family; Visit Provider Internal Medicine
DX: Z13.9 Encounter for screening, unspecified (principal); N39.0 Urinary tract infection, site not specified

== ENCOUNTER → 2024-09-16 13:13 | Outpatient (BNVA) | payer BC, SELFPAY | PROVIDERS: PCP Nurse Practitioner Family; Visit Provider Internal Medicine | DX: N39.0 Urinary tract infection, site not specified (principal); E11.9 Type 2 diabetes mellitus without complications | CPT/HCPCS: 81003 ==

== ENCOUNTER → 2024-10-10 08:21 | Outpatient (BNV) | payer BC, SELFPAY | PROVIDERS: PCP Nurse Practitioner Family; Visit Provider Radiology Diagnostic Radiology | DX: Z90.49 Acquired absence of other specified parts of digestive tract (principal); N20.0 Calculus of kidney | CPT/HCPCS: 74181 ==

== ENCOUNTER 2024-10-10 08:31 | Outpatient (REF) | payer BC, SELFPAY ==
--- NOTE | ~2024-10-10 | MR_ITS ---
EXAMINATION: MRCP HISTORY: R74.8 - Abnormal levels of other serum enzymes COMPARISON: Correlation is made with an abdominal ultrasound dated 03/20/2024. TECHNIQUE: Axial gradient echo and coronal haste T2 with fat saturation images were obtained through the abdomen. 3D MRCP Reconstructed images and thick slab imaging of the biliary tree were obtained. FINDINGS: There is no significant loss of signal intensity within the liver on opposed phase imaging to suggest steatosis. No liver mass is seen, although evaluation is limited by lack of intravenous contrast. The patient is status post cholecystectomy. There is no intra or extrahepatic biliary ductal dilatation. The common bile duct is normal in caliber. No intraluminal filling defects are identified to suggest choledocholithiasis. The spleen, pancreas, adrenals, and right kidney are unremarkable. There is a 1.4 cm cyst at the upper pole of the left kidney. No retroperitoneal lymphadenopathy or ascites is identified in the upper abdomen. MR/MR MRCP IMPRESSION: Status post cholecystectomy. No evidence of hepatic steatosis or choledocholithiasis. Electronically signed by: Cruz Blackburn MD 10/13/2024 02:17 [place] [facility] [place]
--- OUTSIDE RECORDS SUMMARY | 2024-10-10 08:39 | XMS_ITS | Continuity of Care Document ---
Author Organization [facility] [address] [facility] [address] [place] [address] Phone [phone] Care Team Providers Care Log Processor Operator Name Role Phone Joel Alegria Care Team Information Vending Route Driver + [phone] Problems Active Problems Provider Date Type 2 diabetes mellitus Susan Bui M.D. Onset: 08/10/2023 Essential hypertension Rodger Batista Onset: 08/10/2023 Dyslipidemia Susan Bui M.D. Ons et: 08/10/2023 Essential tremor Susan Bui M.D. On set: 08/10/2023 Gastroesophageal reflux disease Susan Heaton M.D. Onset: 08/10/2023 Amos's esophagus Susan Bui M.D. Onset: 08/10/2023 Diabetic peripheral neuropathy Susan rossi M.D. Onset: 08/10/2023 Charcot's arthropathy Eron Batista Onset: 08/10/2023 History of non-ST segment el evation myocardial infarction Susan Bui M.D. 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 06/30/2024 Baqsimi One Lgma1vz/Dose Powder spray into nostril as needed for low sugar reaction 1units Susan Bui M.D. 02/14/2024 Lantus Xcfhsppj192Voti/ML Solution Pen-Inject inject 50 units daily as directed 45ml E11.42 Susan Bui M.D. 10/26/2023 Dexcom G6 TransmitterMisc To Use With Sensors DX E11.42 1units Susan Bui M.D. Lgmbedicw09jp Tablets Take 1 Tablet By Mouth Every Day For 30 Days Lynnette Cardona MD Atorvastatin Edjwaks87or Tablets 1 by mouth every day Unknown Amlodipine Gbuzybzg4rk Tablets Take 1 Tablet (5 MG Total) By Mouth Daily. Unknown Repatha Qiozjvwxs698qq/ml Solution Auto-Inject inject 1 syringe under the skin every 2 weeks Unknown Aspirin 8181mg Tablets DR 1 by mouth every day Susan Bui M.D. Hydroxyzine WCR47aw Tablets Take 1 Tablet By Mouth Every Day as Needed Unknown Dexcom G6 SensorMisc use 1 sensor every 10 days 9units E11.42 Susan Bui M.D. Dexcom G6 SensorMisc Please See Attached For Detailed Directions Unknown Ksiwcnurrq451ss Capsules Take 2 Capsule By Mouth Three Times A Day Unknown Pantoprazole Hmbukv23dq Tablets DR Take 1 Tablet By Mouth Every Morning (Before Breakfast) For 360 Days. Unknown Albuterol Sulfate EVT794(90Base) mcg/Act Aerosol Take 2 Puffs By Mouth Every 4 Hours as Needed For Wheeze Unknown Ipratropium Bromide0.06% Solution Administer 2 Sprays Into Each Nostril Every 6 Hours as Needed For Rhinitis. Unknown Mcabogxsww78sa Tablets Take 1 Tablet By Mouth Every Day Unknown Hyoscyamine Sulfate0.125mg Tablets Take 1 Tablet By Mouth 4 Times Daily as Needed For Cramping Or Diarrhea For Up T Unknown Basaglar Jqjjest140Tdgh/ML Solution Pen-Inject Inject 55 Units Into The Skin AT Bedtime 60ml E11.42 Susan Bui M.D. Trazodone YWY422lm Tablets Take 1 Tablet By Mouth Everyday AT Bedtime Unknown History Medications Ozempic (0.25 Or 0.5 MG/Dose)2mg/3ML Solution Pen-Inject inject 0.5 mg weekly 3ml Susan Bui M.D. 02/14/2024 - 10/09/2024 Vital Signs Date Vital Result Comment 10/09/2024 2:35pm BP Systolic 140 mmHg BP Diastolic 84 mmHg Heart Rate 98 /min Height 65 inches 5'5 Weight 283.00 lb BMI (Body Mass Index) 47.1 kg/m2 Results Test Acquired Date Facility Test Result H/L Range N ote Laboratory test finding 10/09/2024 Inhouse Glucose Fingerstick 119 Hemoglobin A1c 6.9% Laboratory test finding 02/14/2024 Inhouse Glucose Fingerstick 43 Hemoglobin A1c 7.3% Laboratory test finding 10/12/2023 Inhouse Glucose Fingerstick 208 Hemoglobin A1c 6.9% Laboratory test finding 08/15/2023 [facility] Reference Lab Gad65 Autoantibodies <5.0 1 Islet Cell Anti body 512 <7.5 2 Insulin Antibody 12 High 3 1 Reference range: 0.0 to 5.0 Unit: U/mL Test performed at [address] [address] Unit: U/mL (NOTE) Reference Range: <7.5 Negative > or EQ 7.5 Positive Test performed by [facility], [address] [place] [address] 3 Unit: uU/mL (NOTE) This test is also known as insulin autoantibody or IAA. This test was developed and its performance characteristics determined by [facility]. It has not been cleared or approved by the Food and Drug Administration. Reference Range: <5.0 Negative > or EQ 5.0 Positive Test performed by [facility], [address] [place] [address] Procedures Date Code Description Status 08/10/2023 91786 Collection Of Venous Blood B y Venipuncture Completed Medical Devices Description No Information Available Encounters Type Date Location Provider Dx Diagnosis Office Visit 02/14/2024 3:00p Main Office Susan Bui M.D. E11.42 Type 2 diabetes mellitus with diabetic polyneuropathy I10 Essential (primary) hypertension E66.01 Morbid (severe) obes ity due to excess calories I65.23 Occlusion and stenos is of bilateral carotid arteries E78.00 Pure hypercholestero lemia, unspecified Z68.41 Body mass index [BMI ] 40.0-44.9, adult Assessments Date Code Description Provider 10/09/2024 E11.42 Type 2 diabetes mellitus with diabetic polyneuropathy Susan Bui M.D. 10/09/2024 E11.9 Type 2 diabetes mellitus without complications Susan Bui M.D. 10/09/2024 I10 Essential (primary) hyperten andrei Bui M.D. 10/09/2024 E66.01 Morbid (severe) obesity due to excess calories Susan Bui M.D. 10/09/2024 [address]65[address] enosis of bilateral carotid arteries Susan Bui M.D. 10/09/2024 E78.00 Pure hypercholesterolemia, u spencerecwarren Bui M.D. 10/09/2024 Z68.42 Body mass index [BMI] 45.0-4 9.9, adult Susan Bui M.D. 02/14/2024 E11.42 Type 2 diabetes mellitus with diabetic polyneuropathy Susan Bui M.D. 02/14/2024 I10 Essential (primary) gersonen andrei Bui M.D. 02/14/2024 E66.01 Morbid (severe) obesity due to excess calories Susan Bui M.D. 02/14/2024 I65.[address] enosis of bilateral carotid arteries Susan Bui M.D. 02/14/2024 E78.00 Pure hypercholesterolemia, u nspecwarren Bui M.D. 02/14/2024 Z68.41 Body mass index [BMI] 40.0-4 4.9, adult Susan Bui M.D. Plan of Treatment Future Appointment(s):* 02/16/2025 3:00 pm - Susan Bui M.D. at Main Office 08/10/2023 - Susan Bui M.D.* E11.42 Type 2 diabetes mellitus with diabetic polyneuropathy Functional Status Description No Information Available Mental Status Description No Information Available Referrals Refer to Reason for Referral Status Appt Chip Meyer MD POSSIBLE SEIZURES Closed [address] [facility] [address] [place], [place] [address] [phone]
== END 2024-10-10 08:32 | disposition home or self-care (01) ==
LOC: HO.MRI 08:31
PROVIDERS: PCP Nurse Practitioner Family; Visit Provider Internal Medicine Gastroenterology
DX: R74.8 Abnormal levels of other serum enzymes (principal); K83.8 Other specified diseases of biliary tract
CPT/HCPCS: 74181

== ENCOUNTER 2024-10-10 09:46 | Outpatient (REF) | payer BC, SELFPAY ==
[2024-10-10 13:22] LABS: Appearance Urine Cloudy; Color Urine Yellow; Glucose Urine UA 250 mg/dL (Negative); Leukocyte Esterase Urine Trace (Negative); Nitrite Urine Negative (Negative); PH 5.5 (5.0-9.0); Specific Gravity - Urine 1.025 (1.005-1.025); UMIC TRIGGER UA YES; Urine Blood Moderate (2+) (Negative); Urine Ketones Negative (Negative); Urine Protein 300 (3+) mg/dL (Neg-Trace)
[2024-10-10 13:35] LABS: Bacteria Urine 4+ (None Seen); Hyaline Casts Urine 0-2 /LPF (0-2); Squamous Epithelial Cell Urine 0-2 /HPF (0-2); WBC Urine >50 /HPF (0-5)
== END 2024-10-10 09:47 | disposition home or self-care (01) ==
LOC: HO.HMGCLDS 09:46
PROVIDERS: PCP Nurse Practitioner Family; Visit Provider Nurse Practitioner Family
DX: N39.0 Urinary tract infection, site not specified (principal); B96.20 Unspecified Escherichia coli [E. coli] as the cause of diseases classified elsewhere
CPT/HCPCS: 81001; 87086; 87088; 87186

== ENCOUNTER 2024-10-17 12:43 | Outpatient (REF) | payer BC, SELFPAY ==
--- OUTSIDE RECORDS SUMMARY | 2024-10-17 15:15 | XMS_ITS | Continuity of Care Document ---
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 06/30/2024 Baqsimi One Ulwh3kx/Dose Powder spray into nostril as needed for low sugar reaction 1units Susan Bui M.D. 02/14/2024 Lantus Nsawweyc103Eidl/ML Solution Pen-Inject inject 50 units daily as directed 45ml E11.42 Susan Bui M.D. 10/26/2023 Dexcom G6 TransmitterMisc To Use With Sensors DX E11.42 1units Susan Bui M.D. Eukpdujgw15ox Tablets Take 1 Tablet By Mouth Every Day For 30 Days Lynnette Cardona MD Atorvastatin Zixaofo66oe Tablets 1 by mouth every day Unknown Amlodipine Mrkzllku9yn Tablets Take 1 Tablet (5 MG Total) By Mouth Daily. Unknown Repatha Hmavirkal182is/ml Solution Auto-Inject inject 1 syringe under the skin every 2 weeks Unknown Aspirin 8181mg Tablets DR 1 by mouth every day Susan Bui M.D. Hydroxyzine WUJ16mk Tablets Take 1 Tablet By Mouth Every Day as Needed Unknown Dexcom G6 SensorMisc use 1 sensor every 10 days 9units E11.42 Susan Bui M.D. Dexcom G6 SensorMisc Please See Attached For Detailed Directions Unknown Oesviivcam304mm Capsules Take 2 Capsule By Mouth Three Times A Day Unknown Pantoprazole Vamqzr77jh Tablets DR Take 1 Tablet By Mouth Every Morning (Before Breakfast) For 360 Days. Unknown Albuterol Sulfate YOC752(90Base) mcg/Act Aerosol Take 2 Puffs By Mouth Every 4 Hours as Needed For Wheeze Unknown Ipratropium Bromide0.06% Solution Administer 2 Sprays Into Each Nostril Every 6 Hours as Needed For Rhinitis. Unknown Wqmetlibgo59sy Tablets Take 1 Tablet By Mouth Every Day Unknown Hyoscyamine Sulfate0.125mg Tablets Take 1 Tablet By Mouth 4 Times Daily as Needed For Cramping Or Diarrhea For Up T Unknown Basaglar Occzhiu626Nahv/ML Solution Pen-Inject Inject 55 Units Into The Skin AT Bedtime 60ml E11.42 Susan Bui M.D. Trazodone FZZ784df Tablets Take 1 Tablet By Mouth Everyday [...] Hemoglobin A1c 6.9% Laboratory test finding 08/15/2023 [facility] Reference Lab Gad65 Autoantibodies <5.0 1 Islet Cell Anti body 512 <7.5 2 Insulin Antibody 12 High 3 1 Reference range: 0.0 to 5.0 Unit: U/mL Test performed at [address] [address] Unit: U/mL (NOTE) Reference Range: <7.5 Negative > or EQ 7.5 Positive Test performed by [facility], [address] [place] [address] 3 Unit: uU/mL (NOTE) This test is also known as insulin autoantibody or IAA. This test was developed and its performance characteristics determined by [facility]. It has not been cleared or approved by the Food and Drug Administration. Reference Range: <5.0 Negative > or EQ 5.0 Positive Test performed by [facility], [address] [place] [address] Procedures Date Code Description Status 08/10/2023 20964 Collection Of Venous Blood B y Venipuncture Completed Medical Devices Description No Information Available Encounters Type Date Location Provider Dx Diagnosis Office Visit 10/09/2024 2:30p Main Office Susan Bui M.D. E11.42 Type 2 diabetes mellitus with diabetic polyneuropathy E11.9 Type 2 diabetes jorge itus without complications I10 Essential (primary) hypertension E66.01 Morbid (severe) obes ity due to excess calories I65.23 Occlusion and stenos is of bilateral carotid arteries E78.00 Pure hypercholestero lemia, unspecified Z68.42 Body mass index [BMI ] 45.0-49.9, adult Assessments Date Code Description Provider 10/09/2024 E11.42 Type 2 diabetes mellitus with diabetic polyneuropathy Susan Bui M.D. 10/09/2024 E11.9 Type 2 diabetes mellitus without complications Susan Bui M.D. 10/09/2024 I10 Essential (primary) hyperten andrei Susan Bui M.D. 10/09/2024 E66.01 Morbid (severe) obesity due to excess calories Susan Bui M.D. 10/09/2024 I65.[address] enosis of bilateral carotid arteries Susan Bui M.D. 10/09/2024 E78.00 Pure hypercholesterolemia, u nspecified Susan Bui M.D. 10/09/2024 Z68.42 Body mass index [BMI] 45.0-4 9.9, adult Susan Bui M.D. Plan of Treatment Future Appointment(s):* 02/16/2025 3:00 pm - Susan Bui M.D. at Main Office 08/10/2023 - Susan Bui M.D.* E11.42 Type 2 diabetes mellitus with diabetic polyneuropathy Functional Status Description No Information Available Mental Status Description No Information Available Referrals Refer to Reason for Referral Status Appt Chip Meyer MD POSSIBLE SEIZURES Closed [address] [facility] [address] [place], [place] [id number] [phone]
[2024-10-17 16:10] LABS: Appearance Urine Clear; Color Urine Yellow; Glucose Urine UA >=1000 mg/dL (Negative); Leukocyte Esterase Urine Negative (Negative); Nitrite Urine Negative (Negative); PH 5.5 (5.0-9.0); Specific Gravity - Urine >= 1.030 (1.005-1.025); UMIC TRIGGER UACC YES; Urine Blood Moderate (2+) (Negative); Urine Ketones Negative (Negative); Urine Protein 300 (3+) mg/dL (Neg-Trace)
[2024-10-17 16:36] LABS: Bacteria Urine None Seen (None Seen); Hyaline Casts Urine 0-2 /LPF (0-2); UACC Culture Trigger YES
== END 2024-10-17 12:44 | disposition home or self-care (01) ==
LOC: HO.HMGCLDS 12:43
PROVIDERS: PCP Nurse Practitioner Family; Visit Provider Nurse Practitioner Family
DX: N39.0 Urinary tract infection, site not specified (principal)
CPT/HCPCS: 81001; 87086

== ENCOUNTER 2024-10-20 09:31 | Outpatient (REF) | payer BC, SELFPAY ==
--- NOTE | ~2024-10-20 | FL_ITS ---
EXAMINATION: XR FLUOROSCOPY UPPER GI WITH AIR CLINICAL INFORMATION: Dysphagia. COMPARISON: None TECHNIQUE: Fluoroscopic air contrast upper GI examination was performed utilizing standard techniques with thin and thick barium and effervescent granules. Numerous spot images were obtained. FINDINGS: Lateral cine images of the oropharynx and hypopharynx demonstrate normal swallow mechanism with normal epiglottic inversion and soft palate elevation. No tracheal penetration, glottic or subglottic aspiration identified. No nasopharyngeal reflux present. Hypopharyngeal structures appear normal without evidence of mass or diverticulum. There is mild cricopharyngeal achalasia present. Dual and single contrast images of the esophagus demonstrate normal caliber, contour, and mucosal pattern. No evidence of stricture, mass, or ulcerations identified. Esophageal peristalsis is mildly disorganized, with spasming noted in the mid and distal esophagus. Small type I hiatal hernia is present. Gastroesophageal reflux is seen up to the midesophagus.. Surgical clips are present in the right upper quadrant. Dual contrast and single contrast images of the stomach demonstrated a normal contour. There are multiple moderate sized well-circumscribed filling defects in the posterior wall of the body of the stomach that likely represent hyperplastic polyps. No masses or ulcerations are seen. Contrast freely passed into the gastric antrum and duodenal bulb without delay. Single and air-contrast images of the duodenal bulb demonstrate no abnormality. The duodenal sweep has a normal appearance, course, and mucosal fold appearance. The imaged proximal jejunum has a normal fold pattern and caliber. FLUOROSCOPY TIME: 4 minutes 13 seconds Number of Spot Images: 8 Number of Cine: 14 DOSE AREA PRODUCT: 2613 uGy-m2 (microgray-meter squared) FL/FL barium swallow with air IMPRESSION: 1. Mild cricopharyngeal achalasia. 2. Mildly disordered esophageal peristalsis with spasming seen in the mid and distal esophagus. 3. Small type I hiatal hernia with moderate gastroesophageal reflux. 4. Status post cholecystectomy. 5. Multiple moderate size well-circumscribed filling defects in the posterior wall of the body the stomach that likely represent hyperplastic gastric polyps. Recommend correlation with EGD. This procedure was performed by Gerardo Cruz PA-C, and supervised by Dr. Herrera Electronically signed by: Isauro Herrera MD 10/21/2024 02:51 PM [facility]
--- OUTSIDE RECORDS SUMMARY | 2024-10-20 09:49 | XMS_ITS | Continuity of Care Document ---
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 06/30/2024 Baqsimi One Dzqo3ju/Dose Powder spray into nostril as needed for low sugar reaction 1units Susan Bui M.D. 02/14/2024 Lantus Rfsrsokk871Cjar/ML Solution Pen-Inject inject 50 units daily as directed 45ml E11.42 Susan Bui M.D. 10/26/2023 Dexcom G6 TransmitterMisc To Use With Sensors DX E11.42 1units Susan Bui M.D. Shdrepyva60qw Tablets Take 1 Tablet By Mouth Every Day For 30 Days Lynnette Cardona MD Atorvastatin Qwsvksd76mw Tablets 1 by mouth every day Unknown Amlodipine Ikxsjpuq9oq Tablets Take 1 Tablet (5 MG Total) By Mouth Daily. Unknown Repatha Ahpsanfwf510zv/ml Solution Auto-Inject inject 1 syringe under the skin every 2 weeks Unknown Aspirin 8181mg Tablets DR 1 by mouth every day Susan Bui M.D. Hydroxyzine NVM14pu Tablets Take 1 Tablet By Mouth Every Day as Needed Unknown Dexcom G6 SensorMisc use 1 sensor every 10 days 9units E11.42 Susan Bui M.D. Dexcom G6 SensorMisc Please See Attached For Detailed Directions Unknown Rlrmxgzkdh142ve Capsules Take 2 Capsule By Mouth Three Times A Day Unknown Pantoprazole Ynmohr89ab Tablets DR Take 1 Tablet By Mouth Every Morning (Before Breakfast) For 360 Days. Unknown Albuterol Sulfate JWR603(90Base) mcg/Act Aerosol Take 2 Puffs By Mouth Every 4 Hours as Needed For Wheeze Unknown Ipratropium Bromide0.06% Solution Administer 2 Sprays Into Each Nostril Every 6 Hours as Needed For Rhinitis. Unknown Llzeutrbgp34uq Tablets Take 1 Tablet By Mouth Every Day Unknown Hyoscyamine Sulfate0.125mg Tablets Take 1 Tablet By Mouth 4 Times Daily as Needed For Cramping Or Diarrhea For Up T Unknown Basaglar Jyiodzu904Gsyw/ML Solution Pen-Inject Inject 55 Units Into The Skin AT Bedtime 60ml E11.42 Susan Bui M.D. Trazodone YUB858px Tablets Take 1 Tablet By Mouth Everyday [...] Hemoglobin A1c 6.9% Laboratory test finding 08/15/2023 [facility] Reference Lab Gad65 Autoantibodies <5.0 1 Islet Cell Anti body 512 <7.5 2 Insulin Antibody 12 High 3 1 Reference range: 0.0 to 5.0 Unit: U/mL Test performed at [address] [address] Unit: U/mL (NOTE) Reference Range: <7.5 Negative > or EQ 7.5 Positive Test performed by [facility], [address] [place] [address] Unit: uU/mL (NOTE) This test is also known as insulin autoantibody or IAA. This test was developed and its performance characteristics determined by [facility]. It has not been cleared or approved by the Food and Drug Administration. Reference Range: <5.0 Negative > or EQ 5.0 Positive Test performed by [facility], [address] [place] [address] Procedures Date Code Description Status 08/10/2023 65898 Collection Of Venous Blood B y Venipuncture [...] Chip Meyer MD POSSIBLE SEIZURES Closed [address] [facility] [address] [place], [place] [id number] [phone]
== END 2024-10-20 09:32 | disposition home or self-care (01) ==
LOC: HO.XRAY 09:31
PROVIDERS: PCP Nurse Practitioner Family; Visit Provider Internal Medicine Gastroenterology
DX: R13.10 Dysphagia, unspecified (principal)
CPT/HCPCS: 74221

== ENCOUNTER → 2024-10-20 09:35 | Outpatient (BNV) | payer BC, SELFPAY | PROVIDERS: PCP Nurse Practitioner Family; Visit Provider Physician Assistant Surgical | DX: R13.10 Dysphagia, unspecified (principal) | CPT/HCPCS: 74221 ==

== ENCOUNTER 2024-11-05 08:18 | Outpatient (REF) | payer BC, SELFPAY ==
--- OUTSIDE RECORDS SUMMARY | 2024-11-05 09:37 | XMS_ITS | Encounter Summary ---
Author Organization [facility] Address [address] [place] [address] Care Team Providers Care Nuclear Unit Operator Name Role Phone Joel Alegria MD Primary Care Provider [phone] Ranjana Villarreal PA-C Primary Care Provi erika Reason for Referral * Gastroenterology (Routine) - Authorized Specialty Diagnoses / Procedures Referred By Sarah yap Referred To Contact Gastroenterology Diagnoses Full incontinence of feces Unknown Unknow Provider Address [address] [address] Referral ID Status Reason Start Date Expiration Date V isits Requested Visits Authorized [id number] Authorized Consult 10/27/2024 10/28/2025 1 1 Question Answer Select Referral Type: Consult Encounter Details Date Type Department Care Team (Late st Contact Info) Description 10/27/2024 Transcribe Orders [facility] [address] [place] [address] Unknown Unknow Provider Address Full incontinence of feces (Primary Dx) Social History Tobacco Use Types Packs/Day Years Used Date Smoking Tobacco: Never Smokeless Tobacco: Never OASIS D0700: Social Isolation Answer Da te Recorded Frequency of experiencing loneliness or isolatio n Never 09/18/2023 OASIS A1250: Transportation Answer Date Recorded Lack of Transportation (Medical) No 09/18/2023 Lack of Transportation (Non-Medical) No 09/18/2023 Patient Unable or Declines to Respond No 09/18/2023 AUDIT-C Answer Date Recorded Q1: How often do you have a drink containing alcohol? Never 01/06/2024 Q2: How many drinks containi ng alcohol do you have on a typical day when you are drinking? Patient does not drink Q3: How often do you have si x or more drinks on one occasion? Never 01/06/2024 Sex and Gender Information Value Date Recorded Sex Assigned at Female 01/06/2024 3:09 PM EDT Gender Identity Female 01/06/2024 3:09 PM EDT Sexual Orientation Choose not to disclose 2023 3:09 PM EDT documented as of this encounter Plan of Treatment Upcoming Encounters Date Type Department Care Team (Late st Contact Info) Description 11/25/2024 10:00 AM EST Consult [facility] 7 [place] [address] Eladio Becker MD 7 [place] [address] 01/01/2025 1:00 PM EDT Office Visit [address] [phone] Ranjana Villarreal PA-C [address] [place] [address] 01/22/2025 10:30 AM EDT Consult [facility] [address] [phone] Dianne Mackay PA [address] [address] Scheduled Referrals Name Type Priority Associated Diagnoses Order Schedule Amb Referral to Gastroenterology Outpatient Referral Routine Full incontinence of feces Ordered: 10/27/2024 documented as of this encounter Visit Diagnoses Diagnosis Full incontinence of feces- Primary documented in this encounter Care Teams Nuclear Unit Operator Relationship Specialty Start Date End Date Joel Alegria MD [address] [place] [address] PCP - General Family Medicine 07/26/23 11/02/24 Ranjana Villarreal PA-C [address] [place] [address] PCP - General Internal Medicine 11/03/24 documented as of this encounter
--- OUTSIDE RECORDS SUMMARY | 2024-11-05 09:37 | XMS_ITS | Encounter Summary ---
Author Organization [facility] Address [address] [place] [address] Care Team Providers Care Circulation Librarian Name Role Phone Ranjana Villarreal PA-C Primary Care Provi erika Encounter Details Date Type Department Care Team (Latest Contact Info) Description 11/03/2024 Travel Social History Tobacco Use Types Packs/Day Years Used Date Smoking Tobacco: Never Smokeless Tobacco: Never Alcohol Use Standard Drinks/Week Comments Yes 0 (1 standard drink = 0.6 oz pur e alcohol) OASIS D0700: Social Isolation Answer Da te [...] 10:00 AM EST Consult [facility] 7 [place] [address] Eladio Becker MD 7 [place] [address] 01/01/2025 1:00 PM EDT Office Visit [facility] 100 [facility] [address] [place] [address] Ranjana Villarreal PA-C [address] [place] [address] 01/22/2025 10:30 AM EDT Consult [facility] [address] [phone] Dianne Mackay PA [address] [address] documented as of this encounter Visit Diagnoses Not on filedocumented in this encounter Care Teams Circulation Librarian Relationship Specialty Start Date End Date Ranjana Villarreal PA-C [address] [place] [address] PCP - General Internal Medicine 11/03/24 documented as of this encounter
--- OUTSIDE RECORDS SUMMARY | 2024-11-05 09:37 | XMS_ITS | Encounter Summary ---
Author Organization [facility] Address [address] [place] [address] Care Team Providers Care Assembly Stock Supervisor Name Role Phone Ranjana Villarreal PA-C Primary Care Provi erika Encounter Details Date Type Department Care Team (Late st Contact Info) Description 11/04/2024 Telephone [facility] 100 [facility] 101 [place] [phone] Ranjana Villarreal PA-C [address] [place] [address] Social History Tobacco Use Types Packs/Day Years [...] PM EDT documented as of this encounter Miscellaneous Notes * Telephone Encounter - Bernice Lewis MA - 11/04/2024 8:34 AM EST Faxed referral to Dr Becker orth fax [phone] documented in this encounter Plan of Treatment Upcoming Encounters Date Type Department Care Team (Late st Contact Info) Description 11/25/2024 10:00 AM EST Consult [facility] 7 [place] [address] Eladio Becker MD 7 [place] [address] 01/01/2025 1:00 PM EDT Office Visit [facility] 100 [facility] [address] [place] [phone] Ranjana Villarreal PA-C 100 [place] [address] 01/22/2025 10:30 AM EDT Consult [facility] [address] [phone] Dianne Mackay PA 113 [place] [address] documented as of this encounter Visit Diagnoses Not on filedocumented in this encounter Care Teams Assembly Stock Supervisor Relationship Specialty Start Date End Date Ranjana Villarreal PA-C [address] [place] [address] PCP - General Internal Medicine 11/03/24 documented as of this encounter
--- OUTSIDE RECORDS SUMMARY | 2024-11-05 09:37 | XMS_ITS | Clinical Summary ---
Author Organization [facility] Address [address] [place] [address] Care Team Providers Care Electronic Plotting System Operator Name Role Phone Unavailable Primary Care Provider Unavailabl e Allergies Active Allergy Reactions Criticality Noted Date Comments Ceftriaxone Rash Low 06/13/2023 Medications Medication Sig Dispensed Refills Start Date End Date Status insulin lispro (HumaLOG) injection 100 units/mL Inject under the skin 3 (three) times a day before meals. 0 Active insulin glargine (LANTUS) injection 100 units/mL Inject under the skin every night at bedtime. 0 Active aspirin 81 MG chewable tablet Chew 81 mg by mouth daily. 0 Active pantoprazole (PROTONIX) 40 MG tablet Take 1 tablet (40 mg total) by mouth every morning on an empty stomach. 30 tablet 0 12/13/2021 Active ondansetron (ZOFRAN) 4 MG tablet TAKE 1 TO 2 TABLETS EVERY 8 HOURS NEEDED FOR NAUSEA 0 12/09/2021 Active sulfamethoxazole-trime thoprim (BACTRIM DS) 800-160 MG per tablet 0 12/22/2021 Act aidan traMADol (ULTRAM) 50 MG tablet Take 50 mg by mouth every 6 (six) hours as needed. for pain 0 11/15/2021 Active traZODone (DESYREL) 100 MG tablet Take 100 mg by mouth every night at bedtime. 0 10/13/2021 Active hyoscyamine (LEVSIN) 0.125 MG tablet 0 12/19/2021 Active gabapentin (NEURONTIN) 300 MG capsule Take 300 mg by mouth 3 (three) times a day. 0 10/04/2021 Active glucose blood (FREESTYLE LITE) test strip Check BS TID 0 09/17/2018 Active Trulicity 1.5 MG/0.5ML subcutaneous pen-injector INJECT 1.5 MG INTO THE SKIN EVERY 7 DAYS 0 11/28/2021 Active buPROPion (WELLBUTRIN XL) 150 MG 24 hr tablet 0 12/28/2021 Active atorvastatin (LIPITOR) tablet 80 mg Take 1 tablet by mouth daily. 0 06/08/2016 Active Farxiga 5 MG tablet Take 1 tablet by mouth daily. 0 04/05/2023 Active lisinopril (PRINIVIL,ZESTRIL) tablet 10 mg Take 1 tablet (10 mg total) by mouth daily. 0 04/05/2023 Active cloNIDine (CATAPRES) tablet 0.1 mg TAKE 1 TABLET BY MOUTH TWICE A DAY NEEDED 0 05/08/2022 Active ketorolac (TORADOL) 10 MG tablet Take 1 tablet (10 mg total) by mouth every 6 (six) hours as needed for pain. 20 tablet 0 06/13/2023 Active cyclobenzaprine (FLEXERIL) 10 MG tablet Take 1 tablet (10 mg total) by mouth 3 (three) times a day as needed for muscle spasms for up to 15 doses. 15 tablet 0 06/13/2023 Active Active Problems No known active problems Social History Tobacco Use Types Packs/Day Years Used Date Smoking Tobacco: Never Smokeless Tobacco: Never Tobacco Cessation:Counseling Given: Not Answered Alcohol Use Standard Drinks/Week Comments Yes 0 (1 standard drink = 0.6 oz pur e alcohol) rarely Sex and Gender Information Value Date Recorded Sex Assigned at Female 12/13/2021 5:14 PM EDT Gender Identity Not on file Sexual Orientation Not on file Job Start Date Occupation Industry Not on file Not on file Not on file Last Filed Vital Signs Vital Sign Reading Time Taken Comments Blood Pressure 155/89 06/13/2023 3:12 PM EDT Pulse 104 06/13/2023 3:12 PM EDT Temperature 37.2 ??C (99 ??F) 06/13/2023 3:12 PM EDT Respiratory Rate 17 06/13/2023 3:12 PM EDT Oxygen Saturation 100% 06/13/2023 3:12 PM EDT Inhaled Oxygen Concentration - - Weight 103 kg (227 lb) 06/13/2023 3:12 PM EDT Height 165.1 cm (5' 5 ) 06/13/2023 3:12 PM EDT Body Mass Index 37.77 06/13/2023 3:12 PM EDT Plan of Treatment Health Maintenance Due Date Last Done Comments Hepatitis B Vaccines (1 of 3 - 3-dose series) 1966 Hepatitis C Screening 1966 Depression Screening 1978 BMI Counseling 1984 Preventative Health Evaluation 1984 Cervical Cancer Screening (Pap Smear) 1987 Colon Cancer Screening (Colonoscopy) 2011 Breast Cancer Screening (Mammogram) 2016 Shingrix-Zoster Vaccine (1 of 2) 2016 COVID-19 Vaccine ( season) 2024 12/29/2020, 12/01/2020 Influenza Vaccine (#1) 2024 0, 07/18/2018, 08/01/2016, Additional history exists DTap / Tdap / Td (2 - Td or Tdap) 10/22/2024 10/22/2014 Pneumococcal Vaccine Aged Out No long er eligible based on patient's age to complete this topic RSV Ped < 20 months Aged Out No longe r eligible based on patient's age to complete this topic Ewelina Mathis Personal/Family Self 1965 [address] [place] [address]
--- OUTSIDE RECORDS SUMMARY | 2024-11-05 09:37 | XMS_ITS | Clinical Summary ---
Author Organization [facility] Address [address] [place] [address] Care Team Providers Care Plastic Shaper Name Role Phone Ranjana Villarreal PA-C Primary Care Provi erika Allergies Active Allergy Reactions Criticality Noted Date Comments Ceftriaxone Rash/Dermatitis Low 06/13/2023 Metformin Diarrhea Low 01/06/2024 Medications Medication Sig Dispensed Refills Start Date End Date Status lisinopril (PRINIVIL,ZeSTRIL ) 10 MG tablet Take 1 tablet (10 mg total) by mouth daily. Active insulin glargine (insulin glargine, BASAGLAR KWIKPEN,) 100 units/mL prefilled pen injection Inject 50 Units under the skin nightly. Active traZODone (DESYREL) 100 MG tablet Take 1 tablet (100 mg total) by mouth nightly. Active atorvastatin (LIPITOR) 80 MG tablet Take 1 tablet (80 mg total) by mouth daily. Active gabapentin (NEURONTIN) 300 MG capsule Take 1 capsule (300 mg total) by mouth 3 (three) times a day. Active PANTOprazole (PROTONIX) 20 MG tablet Take 2 tablets (40 mg total) by mouth daily. Active insulin aspart (NovoLOG FlexPen) 100 UNIT/ML prefilled pen injection Inject 10 Units under the skin 3 (three) times a day before meals. Patient reports utilizing sliding scale Active hydrOXYzine HCl (ATARAX) 10 MG tablet Take 1 tablet (10 mg total) by mouth daily as needed. Active buPROPion (WELLBUTRIN XL) 300 MG 24 hr tablet Take 1 tablet (300 mg total) by mouth every morning. Active evolocumab (REPATHA SURECLICK) 140 MG/ML auto-injector Inject 1 mL (140 mg total) under the skin every 14 days (2 weeks). Active aspirin enteric coated (ECOTRIN LOW STRENGTH) 81 MG EC tablet Take 1 tablet (81 mg total) by mouth daily. Active albuterol (PROVENTIL HFA; VENTOLIN HFA) 108 (90 Base) MCG/ACT inhaler INHALE 2 PUFFS EVERY 4 TO 6 HOURS NEEDED FOR SHORTNESS OF BREATH OR FOR WHEEZE 12/29/2023 Active ipratropium (ATROVENT) 0.03 % nasal spray USE 2 SPRAYS IN EACH NOSTIL TWICE DAILY 12/31/2023 Active ipratropium-albut jeronimo (DUONEB) 0.5-2.5 mg/3 mL nebulizer solution 3 ML INHALED EVERY 6 HOURS NEEDED FOR WHEEZING 12/05/2023 Active amLODIPine (NORVASC) 5 MG tabletIndications :Occipital neuralgia of left side Take 1 tablet (5 mg total) by mouth daily. 30 tablet 01/09/2024 Active traMADol 25 MG TabIndications:Oc cipital neuralgia of left side Take 25 mg by mouth 4 times daily (every 6 hours) as needed for severe pain. 10 tablet 01/08/2024 Active Continuous Glucose Sensor (Dexcom G6 Sensor) Misc USE 1 SENSOR EVERY 10 DAYS 06/25/2024 Active Continuous Glucose Transmitter (Dexcom G6 Transmitter) Misc 1 DEVICE BY DOES NOT APPLY ROUTE SEE ADMIN INSTRUCTIONS. CHANGE TRANSMITTER EVERY 3 MONTHS. 05/15/2024 Active primidone (MYSOLINE) 50 MG tablet Take 1 tablet (50 mg total) by mouth. 07/24/2024 Active fluticasone-salme terol 100-50 mcg/inh diskus inhaler Inhale 1 puff 2 (two) times a day. Active hyoscyamine (LEVSIN) 0.125 MG tablet Take 1 tablet (0.125 mg total) by mouth 2 (two) times a day as needed. 5 Discontinue d(Med List Clean-up/Ol d Med - No E-Cancel/No AVS) Pulmicort Flexhaler 90 MCG/ACT inhaler Inhale 1 puff 2 (two) times a day. 01/01/2024 5 Discontinue d(Med List Clean-up/Ol d Med - No E-Cancel/No AVS) Mounjaro 2.5 MG/0.5ML pen-injector Inject 1 pen(s) (2.5 mg total) under the skin once a week. sundays01/06/2024 Discontinue d(Med List Clean-up/Ol d Med - No E-Cancel/No AVS) propranolol (INDERAL) 40 MG tablet 1 tablet (40 mg total) by Mouth/Oral Cavity route every 12 hours. 05/14/2024 Discontinue d(Med List Clean-up/Ol d Med - No E-Cancel/No AVS) Active Problems Problem Noted Date Diagnosed Date Primary insomnia 11/03/2024 History of COVID-19 11/03/2024 Tremor 11/03/2024 Gastroesophageal reflux disease without esophagi tis 11/03/2024 Primary hypertension 11/03/2024 Type 2 diabetes mellitus wit hout complication, with long-term current use of insulin 11/03/2024 IBS (irritable bowel syndrome) 11/03/2024 Diabetic neuropathy associat ed with type 2 diabetes mellitus 11/03/2024 Other hyperlipidemia 11/03/2024 Recurrent major depressive disorder, in partial remission 11/03/2024 Morbid obesity 11/03/2024 Peripheral vascular disease 11/03/2024 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, with long-term current use of insulin 11/03/2024 Carotid artery plaque 01/08/2024 Carotid artery stenosis with out cerebral infarction, bilateral 01/08/2024 Occipital neuralgia of left side 01/08/2024 Headache 01/06/2024 Amos's esophagus 08/10/2023 Charcot's arthropathy 08/10/2023 Essential tremor 08/10/2023 Dyslipidemia 08/10/2023 Resolved Problems Problem Noted Date Diagnosed Date Resolved Date Mixed anxiety depressive disorder 11/03/2024 11/03/2024 Sleep-disordered breathing 11/03/2024 0 11/03/2024 History of non-ST elevation myocardial infarction (NSTEMI) 08/10/2023 11/03/2024 Community acquired pneumonia 07/18/2023 11/03/2024 Orthostatic hypotension 07/18/2023 02/0 11/2024 Encounters Date Type Department Care Team Description 11/04/2024 Telephone [facility] 100 [facility] 101 [place] [address] Ranjana Villarreal PA-C 11/03/2024 3:15 PM EST Office Visit [facility] 100 [facility] 101 [place] [address] Ranjana Villarreal PA-C Charcot's arthropathy (Primary Dx); Gastroesophageal reflux disease without esophagitis; Primary hypertension; Type 2 diabetes mellitus with diabetic neuropathic arthropathy, with long-term current use of insulin (HCC); Other hyperlipidemia; Recurrent major depressive disorder, in partial remission; Amos's esophagus without dysplasia; Essential tremor; Dyslipidemia; Carotid artery stenosis without cerebral infarction, bilateral 11/03/2024 Travel 10/27/2024 Transcribe Orders [facility], [address] [place] [address] Unknown Full incontinence of feces (Primary Dx) from Last 3 Months Social History Tobacco Use Types Packs/Day Years [...] not to disclose 2023 3:09 PM EDT Last Filed Vital Signs Vital Sign Reading Time Taken Comments Blood Pressure 134/80 11/03/2024 3:54 PM EST Pulse 96 11/03/2024 3:05 PM EST Temperature 36.2 ??C (97.2 ??F) 11/03/2024 3:05 PM ES T Respiratory Rate 17 11/03/2024 3:05 PM EST Oxygen Saturation 96% 11/03/2024 3:05 PM EST Inhaled Oxygen Concentration - - Weight 126 kg (277 lb 6.4 oz) 11/03/2024 3:05 PM EST Height 165.1 cm (5' 5 ) 11/03/2024 3:05 PM EST Body Mass Index 46.16 11/03/2024 3:05 PM EST Plan of Treatment Upcoming Encounters Date Type Department Care Team (Late st Contact Info) Description 11/25/2024 10:00 AM EST Consult [facility] 7 [place] [address] Eladio Becker MD 7 [place] [address] 01/01/2025 1:00 PM EDT Office Visit [address] [phone] Ranjana Villarreal PA-C 100 [place] [address] 01/22/2025 10:30 AM EDT Consult [facility]3] [address] [phone] Dianne Mackay PA [address] [address] Health Maintenance Due Date Last Done Comments Hepatitis C Virus Screening 1966 Foot Exam 1976 Lipid Panel 1976 Ophthalmology Exam 1976 HIV Screening 1979 Microalbumin/Creatinine Rati o Urine 1984 Physical 1984 DTaP/Tdap/Td Vaccines (1 - Tdap) 1985 Hepatitis B Vaccines (1 of 3 - 19+ 3-dose series) 1985 Pneumococcal Vaccines 50+ (1 of 2 - PCV) 1985 Pap Smear (Ages 21-65) 1987 Mammogram 2006 Colonoscopy 2011 Zoster (Shingles) Vaccine (1 of 2) 2016 Influenza Vaccine 05/01/2024 07/18/2023, , 08/01/2016, Additional history exists Hemoglobin A1C 07/08/2024 01/07/2024 Creatinine with GFR 01/06/2025 01/07/2024, COVID-19 Vaccine Completed 06/13/2024, 01/2021, 12/29/2020, Additional history exists Procedures Procedure Name Priority Date/Time Associated Diagnosis Comments HEMOGLOBIN A1C WITH ESTIMATED AVERAGE GLUCOSE STAT 01/07/2024 4:32 AM EDT BASIC METABOLIC PANEL STAT 01/07/2024 4:32 AM EDT from Last 3 Months or Most Recently Relevant to Health Maintenance Results * (ABNORMAL) Hemoglobin A1c with Estimated Average Glucose (01/07/2024 4:32 AM EDT) Hemoglobin A1C 7.3(H) <5.7 % 01/07/2024 5:20 AM EDT [facility] Comment: A1c% ? Interpretation 5.7 - 6.0 ?Increase risk of diabetes 6.1 - 6.4 ?Higher risk of diabetes > or = 6.5 ?? Consistent with diabetes Diabetes Care, 33(Supp 1):S1-S61, 2010 Estimated Average Glucose 163 mg/dL 01/07/2024 5:20 AM EDT [facility] Blood specimen (specimen) Blood specimen / Unknown 01/07/2024 4:32 AM EDT 01/07/2024 4:37 AM EDT Nas Garcia MD [place] [address], [place] [address] * (ABNORMAL) Basic Metabolic Panel (01/07/2024 4:32 AM EDT) Glucose 181(H) 65 - 99 mg/dL 01/07/2024 5:19 AM [facility] Comment:Fasting: <100 mg/dL, Non-Fasting: <200 mg/dL (ADA 2004) Blood Urea Nitrogen (BUN) 25(H) 8 - 21 mg/dL 01/07/2024 5:19 AM [facility] Creatinine 1.4(H) 0.4 - 1.1 mg/dL 01/07/2024 5:19 AM [facility] eGFR 44(L) >59 01/07/2024 5:19 AM [facility] Comment:CKD-EPI (2020) in mL /min/1.73 sq meters. Sodium 138 136 - 145 mmol/L 01/07/2024 5:19 AM [facility] Potassium 4.1 3.4 - 5.3 mmol/L 01/07/2024 5:19 AM [facility] Chloride 106 98 - 107 mmol/L 01/07/2024 5:19 AM [facility] CO2 24 22 - 33 mmol/L 01/07/2024 5:19 AM [facility] Anion Gap 8 7 - 17 01/07/2024 5:19 AM [facility] Calcium 9.0 8.7 - 10.5 mg/dL 01/07/2024 5:19 AM [facility] BUN/Creatinine Ratio 18 10.0 - 25.0 Ratio 01/07/2024 5:19 AM [facility] Blood specimen (specimen) (Plasma/Serum) 01/07/2024 4:32 AM EDT 01/07/2024 4:37 AM EDT Nas Garcia MD [place] [address], [address] [place] [address] from Last 3 Months or Most Recently Relevant to Health Maintenance Advance Directives * Full Code (Latest Code Status on File) Date Activated Date Inactivated Comments 01/06/2024 5:40 PM Question Answer Comments Decision Thoroughly Discussed with: Patient * Full Code Date Activated Date Inactivated Comments 08/30/2023 12:10 PM 01/06/2024 2:18 PM Full Code Care Teams Plastic Shaper Relationship Specialty Start Date End Date Ranjana Villarreal PA-C [address] [place] [address] PCP - General Internal Medicine 11/03/24
--- OUTSIDE RECORDS SUMMARY | 2024-11-05 09:37 | XMS_ITS | Clinical Summary ---
Author Organization [facility] Address [address] [place] [address] Care Team Providers Care Community Health Worker Name Role Phone Unavailable Primary Care Provider Unavailabl e Immunizations Name Administration Dates Next Due COVID-19, mRNA (Moderna Pre Fall 2022) Monovalent, 100 mcg/0.5 ml or 50 mcg/0.25 ml dose 12/29/2020,12/01/2020 Influenza,injectable,MDCK,quad,preservative 07/01 Influenza,seasonal,trivalent ,preservative (FLUZONE MDV) 07/18/2018,08/01/2016,10/22/2014 Tdap 10/22/2014 Social History Tobacco Use Types Packs/Day Years Used Date Smoking Tobacco: Never Assessed Comments Unknown Sex and Gender Information Value Date Recorded Sex Assigned at Not on file Legal Sex Female 12:18 PM EDT Gender Identity Not on file Sexual Orientation Not on file Plan of Treatment Health Maintenance Due Date Last Done Comments Hepatitis C Screening 1966 Pap Smear 1982 Hep B (1 of 3 - 19+ 3-dose series) 1985 Mammogram/Breast Imaging 2006 Pneumococcal 50+ years (1 of 1 - PCV) 2016 Zoster (Shingrix) (1 of 2) 2016 COVID-19 Vaccine (3 - season) 2024 12/29/2020, 12/01/2020 Influenza (#1) 2024 07/15/2020, 07/01, 08/01/2016, Additional history exists DTaP/Tdap/Td (2 - Td or Tdap) 10/22/2024 10/22/2014 HPV Vaccine Aged Out No longer eligi ble based on patient's age to complete this topic Hep A Aged Out No longer eligi ble based on patient's age to complete this topic Hib Aged Out No longer eligi ble based on patient's age to complete this topic Meningococcal ACWY Aged Out No longer eligible based on patient's age to complete this topic
--- OUTSIDE RECORDS SUMMARY | 2024-11-05 09:37 | XMS_ITS | Encounter Summary ---
Author Organization [facility] Address [address] [place] [id number] Care Team Providers Care Douper Name Role Phone Ranjana Villarreal PA-C Primary Care Provi erika Reason for Referral * Orthopedic (Routine) - Authorized Specialty Diagnoses / Procedures Referred By Sarah t Referred To Contact Surgery, Orthopedic Diagnoses Charcot's arthropathy Ranjana Villarreal PA-C [address] [place] [address] Eladio Becker MD [address] [place] [address] Referral ID Status Reason Start Date Expiration Date Visits Requested Visits Authorized [id number] Authorized Second Opinion 11/03/2024 11/04/2025 1 1 Reason for Visit * Reason Comments Establish Care Encounter Details Date Type Department Care Team (Late st Contact Info) Description 11/03/2024 3:15 PM EST Office Visit [facility] [address] [facility] [address] [place] [phone] Ranjana Villarreal PA-C [address] [place] [address] Charcot's arthropathy (Primary Dx); Gastroesophageal reflux disease without esophagitis; Primary hypertension; Type 2 diabetes mellitus with diabetic neuropathic arthropathy, with long-term current use of insulin (HCC); Other hyperlipidemia; Recurrent major depressive disorder, in partial remission; Amos's esophagus without dysplasia; Essential tremor; Dyslipidemia; Carotid artery stenosis without cerebral infarction, bilateral Social History Tobacco Use Types Packs/Day Years [...] PM EDT documented as of this encounter Last Filed Vital Signs Vital Sign Reading [...] Mass Index 46.16 11/03/2024 3:05 PM EST documented in this encounter Progress Notes * Ranjana Villarreal PA-C - 11/03/2024 3:48 PM EST Images from the original note were not included. Assessment & Plan 1. Charcot's arthropathy Left foot; had surgery at [facility]. Still with pain and difficulty walking. Was told there was nothing else they could do for her. Saw pain management which did not help either. Looking for a second orthopedic opinion. Referral placed. - Amb referral to Orthopedic Surgery 2. Gastroesophageal reflux disease without esophagitis PPI recently increased. Following with GI. 3. Primary hypertension Compliant with blood pressure medications. Patient will continue to check blood pressure readings at home. 4. Type 2 diabetes mellitus with diabetic neuropathic arthropathy, with long- term current use of insulin ([facility]) Follows closely with endocrinology. Compliant with insulin. Last A1c was under 7 per patient. 5. Other hyperlipidemia On Repatha and max dose Lipitor. Will get last lab work. 6. Recurrent major depressive disorder, in partial remission Follows with psych. Stable with meds. 7. Amos's esophagus without dysplasia Follows with GI. Will get those last notes. 8. Essential tremor On Mysoline. Following with neurology. 9. Carotid artery stenosis without cerebral infarction, bilateral History of. Found incidentally during an ER admission to [facility] last year. Carotid ultrasound done August 2024 showed Impression Right carotid duplex ultrasound demonstrates mild plaque in the extracranial internal carotid artery without significantly elevated velocities. Findings are consistent with <50% diameter reductionof the vessel. The Doppler waveforms in the subclavian artery are turbulent. The vertebral artery is patent with antegrade flow. Left carotid duplex ultrasound demonstrates mild plaque in the extracranial internal carotid arterywithout significantly elevated velocities. Findings are consistent with <50% diameter reduction of the vessel. The Doppler waveform of the subclavian artery is within normal limits, and findings are not indicative of subclavian artery disease. The vertebral artery is patent with antegrade flow. Patient will sign records release to get her previous medical records. Will see her in about 2 months. Patient understands and agrees with the plan of care Return in about 2 months (around 01/01/2025) for 30 MINUTES. Communication barriers and lifestyle preferences were addressed with the patient. The care plan including medications and self-management goals were reviewed to the best of the patient???s abilities.All questions and concerns were answered. Patient and/or family verbalized understanding of the plan of care. Subjective Ewelina Mathis is a 59 y.o. female who presents for office visit. Chief Complaint Patient presents with Establish Care HPI Ewelina presents to the office today to establish care. Her previous PCP is out of [facility] in [facility]. Unfortunately we do not have any of her previous records from him. Past medical history is significant for 1. Type 2 diabetes-follows with endocrinology. Stable with insulin. States her last A1c was under 7. 2. History of diabetic neuropathy and Charcot arthropathy-follows with neurology. On gabapentin. Had surgery at [facility] on her left foot. Still suffering with pain. She was told there was nothing [facility] could do. She was seeing pain management that did not help either. She is looking for a second opinion with an orthopedic surgeon. 3. History of GERD and Amos's esophagus-follows with GI. Stable with PPI. Will be establishing care with new GI in [facility]. 4. Essential tremor-is on primidone and follows with neurology. Would like to see neurology in [place]. 5. Hypertension-compliant with blood pressure medications. Not checking her blood pressures. 6. History of carotid artery disease-states she saw vascular in [place]. 7. Anxiety/depression-follows with psych. Takes hydroxyzine and Wellbutrin. 8. Hyperlipidemia-on Repatha and a atorvastatin. Follows with cardiology. States she was hospitalized a few years back with DKA and sepsis. Due to demand ischemia had a heart attack. She states she had a cardiac cath done in [place]. Does follow with cardiology now. Patient Active Problem List Diagnosis Headache Carotid artery plaque Carotid artery stenosis without cerebral infarction, bilateral Occipital neuralgia of left side Primary insomnia History of COVID-19 Tremor Gastroesophageal reflux disease without esophagitis Primary hypertension Type 2 diabetes mellitus without complication, with long-term current use of insulin (HCC) IBS (irritable bowel syndrome) Diabetic neuropathy associated with type 2 diabetes mellitus (HCC) Other hyperlipidemia Recurrent major depressive disorder, in partial remission Morbid obesity (HCC) Amos's esophagus Charcot's arthropathy Essential tremor Dyslipidemia Peripheral vascular disease Type 2 diabetes mellitus with diabetic neuropathic arthropathy, with long-term current use of insulin (HCC) Current Outpatient Medications Medication Sig Dispense Refill albuterol (PROVENTIL HFA; VENTOLIN HFA) 108 (90 Base) MCG/ACT inhaler INHALE 2 PUFFS EVERY 4 TO 6 HOURS NEEDED FOR SHORTNESS OF BREATH OR FOR WHEEZE amLODIPine (NORVASC) 5 MG tablet Take 1 tablet (5 mg total) by mouth daily. 30 tablet 0 aspirin enteric coated (ECOTRIN LOW STRENGTH) 81 MG EC tablet Take 1 tablet (81 mg total) by mouth daily. atorvastatin (LIPITOR) 80 MG tablet Take 1 tablet (80 mg total) by mouth daily. buPROPion (WELLBUTRIN XL) 300 MG 24 hr tablet Take 1 tablet (300 mg total) by mouth every morning. Continuous Glucose Sensor (Dexcom G6 Sensor) [facility] USE 1 SENSOR EVERY 10 DAYS Continuous Glucose Transmitter (Dexcom G6 Transmitter) [facility] DEVICE BY DOES NOT APPLY ROUTE SEE ADMIN INSTRUCTIONS. CHANGE TRANSMITTER EVERY 3 MONTHS. evolocumab (REPATHA SURECLICK) 140 MG/ML auto-injector Inject 1 mL (140 mg total) under the skin every 14 days (2 weeks). fluticasone-salmeterol 100-50 mcg/inh diskus inhaler Inhale 1 puff 2 (two) times a day. gabapentin (NEURONTIN) 300 MG capsule Take 1 capsule (300 mg total) by mouth 3 (three) times a day. hydrOXYzine HCl (ATARAX) 10 MG tablet Take 1 tablet (10 mg total) by mouth daily as needed. insulin aspart (NovoLOG FlexPen) 100 UNIT/ML prefilled pen injection Inject 10 Units under the skin3 (three) times a day before meals. Patient reports utilizing sliding scale insulin glargine (insulin glargine, BASAGLAR KWIKPEN,) 100 units/mL prefilled pen injection Inject 50 Units under the skin nightly. ipratropium (ATROVENT) 0.03 % nasal spray USE 2 SPRAYS IN EACH NOSTIL TWICE DAILY ipratropium-albuterol (DUONEB) 0.5-2.5 mg/3 mL nebulizer solution 3 ML INHALED EVERY 6 HOURS NEEDED FOR WHEEZING lisinopril (PRINIVIL,ZeSTRIL) 10 MG tablet Take 1 tablet (10 mg total) by mouth daily. PANTOprazole (PROTONIX) 20 MG tablet Take 2 tablets (40 mg total) by mouth daily. primidone (MYSOLINE) 50 MG tablet Take 1 tablet (50 mg total) by mouth. traZODone (DESYREL) 100 MG tablet Take 1 tablet (100 mg total) by mouth nightly. traMADol 25 MG Tab Take 25 mg by mouth 4 times daily (every 6 hours) as needed for severe pain. 10 tablet 0 No current facility-administered medications for this visit. Pertinent History: The patient's past medical, surgical, social, and family history were all reviewed and updated as appropriate. Review of Systems Musculoskeletal: See HPI Objective Vitals: 11/03/24 1505 11/03/24 1554 BP: (!) 158/80 134/80 Pulse: 96 Resp: 17 Temp: 97.2 ??F (36.2 ??C) SpO2: 96% Body mass index is 46.16 kg/m??. Physical Exam Vitals reviewed. Constitutional: Appearance: She is obese. Cardiovascular: Rate and Rhythm: Normal rate and regular rhythm. Heart sounds: Normal heart sounds. Pulmonary: Effort: Pulmonary effort is normal. Breath sounds: Normal breath sounds. Musculoskeletal: Right lower leg: No edema. Left lower leg: No edema. Neurological: Mental Status: She is alert. Psychiatric: Mood and Affect: Mood normal. Behavior: Behavior normal. Disclaimer: goBalto voice-recognition is used to prepare this typewritten note. Although each note is personally edited for syntactic and grammatical errors, unintended translational errors can occur.Please contact me if there are any questions about the content of this note. Ranjana Villarreal PA-C documented in this encounter Plan of Treatment Upcoming Encounters Date Type Department Care Team (Late st Contact Info) Description 11/25/2024 10:00 AM EST [facility] [address] [place] [address] Eladio Becker MD [address] [place] [id number] 01/01/2025 1:00 PM EDT Office Visit [address] [place] [phone] Ranjana Villarreal PA-C [address] [place] [id number] 01/22/2025 10:30 AM EDT Consult [facility] [address] [facility] [address] [place] [phone] Dianne Mackay PA [address] [facility] [address] [place], [place] [phone] Scheduled Referrals Name Type Priority Associated Diagnoses Orde r Schedule Amb referral to Orthopedic Surgery Outpatient Referral Routine Charcot's arthropathy Ordered: 11/03/2024 documented as of this encounter Visit Diagnoses Diagnosis Charcot's arthropathy- Primary Tabes dorsalis Gastroesophageal reflux disease without esophagitis Esophageal reflux Primary hypertension Unspecified essential hypertension Type 2 diabetes mellitus with diabetic neuropathic arthropathy, with long-term current use of insulin (HCC) Other hyperlipidemia Recurrent major depressive disorder, in partial remission Amos's esophagus without dysplasia Essential tremor Dyslipidemia Other and unspecified hyperlipidemia Carotid artery stenosis without cerebral infarction, bilateral documented in this encounter Care Teams Douper Relationship Specialty Start Date End Date Ranjana Villarreal PA-C [address] [place] [address] PCP - General Internal Medicine 11/03/24 documented as of this encounter
--- OUTSIDE RECORDS SUMMARY | 2024-11-05 09:37 | XMS_ITS | Clinical Summary ---
Author Organization [facility] Address [address] [place] [address] Phone Care Team Providers Care Shoe Polisher Name Role Phone Joel Alegria NP Primary Care Provider Encounters Date Type Department Care Team Description 08/05/2024 7:12 AM EST - 08/05/2024 11:59 PM EST Hospital En[facility] [address] [phone] Encounter for screening mammogram for breast cancer Discharge Disposition: Home or Self Care from Last 3 Months Immunizations Name Administration Dates Next Due Moderna SARS-CoV-2 COVID-19, mRNA, LNP-S, preservative free 12/29/2020,12/01/2020 Surgical History Surgery Date Site/Laterality Comments CHOLECYSTECTOMY 2000 PROCEDURE: HISTORICAL CHOLECYSTECTOMY ENDOMETRIAL ABLATION PROCEDURE: ID ENDOMETRIAL ABLTJ THERMAL W/O HYSTEROSCOPIC GUID; COMMENT: done twice OTHER SURGICAL HISTORY PROCEDURE: ---- OTHER ----; COMMENT: skin graft for diabetic ulcer SECTION 03/1997 PROCEDURE: HISTORICAL DELIVERY COLONOSCOPY 06/18/2009 PROCEDURE: HISTORICAL COLONOSCOPY; COMMENT: Normal to cecum, repeat 10 years (small grade 2 internal hemorrhoids) UPPER GASTROINTESTINAL ENDOSCOPY 11/26/2001 PROCEDURE: UPPER GI ENDOSCOPY/EXAM; COMMENT: Normal, iron deficiency anemia most likely r/t a staff consultant source. OTHER SURGICAL HISTORY 2004 PROCEDURE: HISTORICAL VAGINAL HYSTERECTOMY WITH BSO CHOLECYSTECTOMY PROCEDURE:CHOLECYSTECTOMY HYSTERECTOMY PROCEDURE:HYSTERECTOMY Medical History Medical History Date Comments Genital herpes 11/15/2007 DX:Genital herpe s; COMMENT: Type I Hypertension DX:Hypertension Breast hematoma 11/06/2014 DX:Breast hemato ma Breast mass in female 02/11/2015 DX:Breast mass in female Microalbuminuria 08/19/2018 DX:Microalbumin uria Hyperlipidemia 09/26/2018 DX:Hyperlipidemi a Family history of breast can cer in mother 10/22/2014 DX:Family history of breast cancer in mother Diabetic ulcer of right foot (CMS/HCC) 8 DX:Diabetic ulcer of right foot (HCC); COMMENT: [facility] ED evaluation 06/29/18, referred to Dr. Ewing, [facility] wound care Managed with IV abx via PICC line through ID, eval with Dr. Harris for skin graft 08/2018 Anxiety 09/17/2018 DX:Anxiety; COMM ENT: Panic attacks Diabetic neuropathy (CMS/HCC) 09/26/2018 DX :Diabetic neuropathy (HCC) Umbilical hernia 09/26/2018 DX:Umbilical he rnia Type 2 diabetes mellitus wit h neurological manifestations (CMS/HCC) 09/26/2018 DX:Type 2 diabet es mellitus with neurological manifestations (HCC); COMMENT: Endo consult with Dr. Garces Type 2 diabetes mellitus wit h renal manifestations (CMS/HCC) 01/15/2019 DX:Type 2 diabetes mellitus with renal manifestations (HCC) Chronic gastric ulcer DX:Chronic gastric ulcer Depression DX:Depression ALIYAH on CPAP 01/15/2019 DX:ALIYAH on CPAP GERD (gastroesophageal reflux disease) 01/15/2019 DX:GERD (gastroesophageal reflux disease) Type 2 diabetes mellitus wit h vascular disease (CMS/HCC) 10/14/2012 DX:Type 2 diabetes mellitus with vascular disease (HCC) IBS (irritable bowel syndrome) 01/15/2019 D X:IBS (irritable bowel syndrome) Carpal tunnel syndrome of left wrist 01/15/2019 DX:Carpal tunnel syndrome of left wrist Amos's esophagus 03/23/2022 DX:Amos's esophagus [place] grade A esophagitis 03/23/2022 DX:[place] grade A esophagitis Diabetes mellitus (CMS/HCC) DX:D iabetes mellitus (HCC) Hypertension DX:Hypertension Hypercholesterolemia DX:Hypercho lesterolemia Anxiety DX:Anxiety GERD (gastroesophageal reflux disease) DX:GERD (gastroesophageal reflux disease) Family History Medical History Relation Name Comments Other: Graves Disease Brother Heart failure Maternal Grandfather Stroke Other cancer Maternal Grandmother Liver Breast cancer Mother Heart failure Paternal Grandfather [place], Hy pertension Other cancer Paternal Grandmother Kidney cancer Sister 1 Kidney Relation Name Status Comments Brother Alive Daughter Alive Father Alive Maternal Grandfather Maternal Grandmother Mother Paternal Grandfather Paternal Grandmother Sister 1 Sister 2 Alive Son Alive Social History Tobacco Use Types Packs/Day Years Used Date Smoking Tobacco: Never Smokeless Tobacco: Never Alcohol Use Standard Drinks/Week Comments Yes 0 (1 standard drink = 0.6 oz pur e alcohol) Sex and Gender Information Value Date Recorded Sex Assigned at Female 08/01/2024 12:02 PM EDT Gender Identity Female 08/01/2024 12:02 PM EDT Sexual Orientation Not on file Job Start Date Occupation Industry Not on file Not on file Not on file Obstetrics History Para Term AB IAB SAB Ectopic Multiple Livin g Live Births 2 Last Filed Vital Signs Vital Sign Reading Time Taken Comments Blood Pressure 137/86 01/15/2023 4:28 PM EDT Aut o Cuff Pulse 76 01/15/2023 4:28 PM EDT Temperature - - Respiratory Rate - - Oxygen Saturation - - Inhaled Oxygen Concentration - - Weight 122 kg (270 lb) 08/05/2024 7:37 AM EST Height 165.1 cm (5' 5 ) 08/05/2024 7:37 AM EST Body Mass Index 44.93 08/05/2024 7:37 AM EST Plan of Treatment Health Maintenance Due Date Last Done Comments Diabetes: Annual Foot Exam 1976 Diabetes: Annual Retina Eye Exam 1976 Hepatitis B Vaccines (1 of 3 - 19+ 3-dose series) 1985 Zoster Vaccines (1 of 2) 2016 Colorectal Cancer Screening: Colonoscopy 09/09/2022 Depression Screening 09/09/2022 HIV Screening 09/09/2022 Hepatitis C Screening 09/09/2022 Social Influencers of Health Screening 09/09/2022 Diabetes: Annual Urine Albumin-Creatinine Ratio (uACR) 09/16/2022 Diabetes: Blood Sugar Control Test (HGBA1C) 01/09/2024 07/10/2023 COVID-19 Vaccine ( season) 2024 12/29/2020, 12/01/2020 Influenza Vaccine (#1) 2024 3, 07/15/2020, 07/18/2018, Additional history exists DTaP,Tdap,and Td Vaccines (2 - Td or Tdap) 10/22/2024 10/22/2014 Diabetes: Annual GFR (Glomerular Filtration Rate) 02/03/2025 02/04/2024, 01/07/2024, 01/06/2024, Additional history exists Hypertension/CHF/CAD Annual BMP Blood Test 02/03/2025 02/04/2024, 01/07/2024, 01/06/2024, Additional history exists Breast Cancer Screening 08/05/2026 08/05/20 24, 03/09/2023, 12/20/2021, Additional history exists Cholesterol Screening (Lipid Panel) 07/11/2028 07/11/2023 HIB Vaccines Aged Out No longer eligi ble based on patient's age to complete this topic HPV Vaccines Aged Out No longer eligi ble based on patient's age to complete this topic Hepatitis A Vaccines Aged Out No long er eligible based on patient's age to complete this topic IPV Vaccines Aged Out No longer eligi ble based on patient's age to complete this topic MMR Vaccines Aged Out No longer eligi ble based on patient's age to complete this topic Meningococcal ACWY Vaccine Aged Out N o longer eligible based on patient's age to complete this topic Pneumococcal Vaccine: Pediatrics (0 to 5 Years) and At-Risk Patients (6 to 64 Years) Aged Out No longer eligible based on patient's age to complete this topic RSV Immunization Patients Under 20 months Aged Out No longer eligible based on patient's age to complete this topic Varicella Vaccines Aged Out No longer eligible based on patient's age to complete this topic Procedures Procedure Name Priority Date/Time Associated Diagnosis Comments MG MAMMO DIGITAL SCREENING W CRISTI BILAT Routine 08/05/2024 7:53 AM EST Encounter for screening mammogram for breast cancer from Last 3 Months Results * MG Mammo Digital Screening w Cristi bilat (08/05/2024 7:53 AM EST) Anatomical Region Laterality Modality Breast Bilateral Mammography 08/05/2024 8:44 AM EST Impressions 08/05/2024 8:54 AM EST No mammographic evidence of malignancy. ?? No suspicious interval change. A negative mammogram in the presence of a clinically suspicious palpable abnormality does not preclude the possibility of malignancy or alter the indications for biopsy. ASSESSMENT: ?? BI-RADS 1: NEGATIVE RECOMMENDATION(S): 1: Routine screening mammogram BILATERAL in 1 year. -------- FINAL REPORT -------- Dictated By: Pantera Valencia Dictated Date: 08/05/2024 08:44 ET Assigned Physician: Pantera Valencia Reviewed and Electronically Signed By: Pantera Valencia Signed Date: 08/05/2024 08:54 ET Workstation ID: [id number] Transcribed By: Self Edit Transcribed Date: 08/05/2024 08:44 ET Narrative 08/05/2024 8:54 AM EST EXAM: ??SCREENING MAMMOGRAPHY, BILATERAL HISTORY: ??SCREENING. ??Mother diagnosed with breast cancer age 56. COMPARISON: ??03/09/2023, 12/20/2021, 09/10/2020 TECHNIQUE: Synthesized CC and MLO projections of each breast. ??Tomosynthesis of each breast in the CC and MLO projections. ADDITIONAL IMAGING: None Computer-aided detection was employed with the iCAD ??profound AI 3-D. TISSUE DENSITY: There are scattered areas of fibroglandular density. (BI-RADS category B) FINDINGS: RIGHT BREAST: No suspicious mass. No suspicious calcification. No distortion. ?? No additional suspicious right breast findings LEFT BREAST: No suspicious mass. No suspicious calcification. No distortion. ?? No additional suspicious left breast findings Procedure Note Pantera Valencia MD - 08/05/2024 EXAM: SCREENING MAMMOGRAPHY, BILATERAL HISTORY: SCREENING. Mother diagnosed with breast cancer age 56. COMPARISON: 03/09/2023, 12/20/2021, 09/10/2020 TECHNIQUE: Synthesized CC and MLO projections of each breast.Tomosynthesis of each breast in the CC and MLO projections. ADDITIONAL IMAGING: None Computer-aided detection was employed with the iCAD profound AI 3-D. TISSUE DENSITY: There are scattered areas of fibroglandular density.(BI-RADS category B) FINDINGS: RIGHT BREAST: No suspicious mass. No suspicious calcification. No distortion. Noadditional suspicious right breast findings LEFT BREAST: No suspicious mass. No suspicious calcification. No distortion. Noadditional suspicious left breast findings IMPRESSION: No mammographic evidence of malignancy. No suspicious interval change. A negative mammogram in the presence of a clinically suspicious palpableabnormality does not preclude the possibility of malignancy or alter theindications for biopsy. ASSESSMENT: BI-RADS 1: NEGATIVE RECOMMENDATION(S): 1: Routine screening mammogram BILATERAL in 1 year. -------- FINAL REPORT -------- Dictated By: Pantera Valencia Dictated Date: 08/05/2024 08:44 ET Assigned Physician: Pantera Valencia Reviewed and Electronically Signed By: Pantera Valencia Signed Date: 08/05/2024 08:54 ET Workstation ID: [id number] Transcribed By: Self Edit Transcribed Date: 08/05/2024 08:44 ET Self Referral Spp[facility] IMG BI PROCEDURES from Last 3 Months Care Teams Shoe Polisher Relationship Specialty Start Date End Date Joel Alegria NP [address] [place], [place] PCP - General Family Medicine 08/01/24
[2024-11-05 13:04] LABS: MANUAL DIFF FLAG NO
[2024-11-05 13:13] LABS: Basophils Absolute Auto 0.1 X10*3/uL (0.0-0.2); Basophils Percent Auto 0.7 % (0-2); Eosinophils Absolute Auto 0.5 X10*3/uL (0.0-0.4); Eosinophils Percent Auto 4.9 % (0-4); Hematocrit 32.8 % (37.0-47.0); Hemoglobin 10.4 g/dl (12.0-16.0); Imm Gran Abs Auto 0.04 X10*3/uL (0.00-0.03); Imm Gran Pct Auto 0.4 % (0.0-0.4); Immature Retic Fraction 11.8 % (3.0-15.9); Lymphocytes Absolute Auto 2.5 X10*3/uL (1.2-4.9); Lymphocytes Percent Auto 24.4 % (20-40); Mean Corpuscular HGB Conc 31.7 g/dl (31.0-35.0); Mean Corpuscular Hemoglobin 26.7 pg (27.0-33.0); Mean Corpuscular Volume 84.3 fL (80.0-98.0); Mean Platelet Volume 9.8 fL (9.4-12.3); Monocytes Absolute Auto 0.6 X10*3/uL (0.1-1.2); Monocytes Percent Auto 6.2 % (2-11); Neutrophils Absolute Auto 6.4 x10*3/uL (2.0-8.3); Neutrophils Percent Auto 63.4 % (45-73); Platelet Count 297 X10*3/uL (160-400); Red Blood Count 3.89 X10*6/uL (4.20-5.50); Red Cell Distribution Width 13.9 % (11.0-16.0); Retic HGB Equivalent 30.3 pg (30.0-35.0); Reticulocyte Percent 2.2 % (0.5-1.8); Reticulocytes Absolute 0.084 X10*6/uL (0.026-0.095); White Blood Count 10.1 X10*3/uL (4.8-10.8)
[2024-11-05 13:33] LABS: Iron 37 mcg/dL (30-160); Lactate Dehydrogenase 294 U/L (122-220); Percent Iron Saturation 15 % (15-50); Total Iron Binding Capacity 241 mcg/dL (228-428); Unsaturated Iron Binding 204 ug/dL
[2024-11-05 13:48] LABS: Ferritin 53 ng/mL (10-250); TSH reflex Free T4 1.42 uIU/mL (0.32-4.0)
[2024-11-05 13:59] LABS: Folate 9.3 ng/mL (> or = 4.0); Vitamin B12 412 pg/mL (200-900)
[2024-11-07 07:44] LABS: Lyme Abs Screen <0.90 index
[2024-11-07 20:47] LABS: A. Phagocytphilium DNA,RT-PCR NOT DETECTED (NOT DETECTED); Babesia Microti DNA, RT-PCR NOT DETECTED (NOT DETECTED); Borrelia Miyamotoi,DNA RT-PCR NOT DETECTED (NOT DETECTED); E.Chaffeensis DNA RT-PCR NOT DETECTED (NOT DETECTED); Lyme(Borrelia ssp)DNA RT-PCR NOT DETECTED (NOT DETECTED)
[2024-11-11 13:38] LABS: Anti Nuclear Antibody Screen NEGATIVE (NEGATIVE)
== END 2024-11-05 08:19 | disposition home or self-care (01) ==
LOC: HO.HMGCLDS 08:18
PROVIDERS: PCP Nurse Practitioner Family; Visit Provider Nurse Practitioner Family
DX: D64.9 Anemia, unspecified (principal); R53.83 Other fatigue; G47.30 Sleep apnea, unspecified; E66.01 Morbid (severe) obesity due to excess calories; Z68.42 Body mass index [BMI] 45.0-49.9, adult; E11.22 Type 2 diabetes mellitus with diabetic chronic kidney disease; N18.9 Chronic kidney disease, unspecified; Z23 Encounter for immunization
CPT/HCPCS: 36415; 82607; 82728; 82746; 83540; 83615; 84443; 85025; 85045; 86038; 86617; 86618; 87468; 87469; 87478; 87484; 87798; 90471; 90677; 96127

== ENCOUNTER 2024-11-10 14:49 | Outpatient (AMB) | payer BC, SELFPAY ==
--- NOTE | 2024-11-10 14:53 | MHC.OFFVIS ---
Intake Visit Reasons: recurrent UTI Intake Note: New Patient presents for initial visit for recurrent uti Urology Medications: none Blood Thinner: aspirin PVR: 21ml's Claim Review Medical Director Required: No Accompanied by: Self / Same As Patient Allergies metformin Adverse Reaction (Verified 11/10/24 21:39) diarrhea and vomiting Medication List - Last Reconciled 11/10/24 by DARVIN Contreras acetaminophen ER 650 mg PO Q12H PRN albuterol sulfate 90 mcg/actuation 2 puffs inhalation Q4-6H PRN amlodipine 5 mg PO DAILY aspirin 81 mg PO DAILY atorvastatin 80 mg PO DAILY blood-glucose sensor (Dexcom G6 Sensor device) As directed blood-glucose transmitter (Dexcom G6 Transmitter device) As directed bupropion HCl XL 300 mg PO DAILY estradiol 0.01%(0.1mg/gram) 2 grams vaginal DAILY 90 days evolocumab (Repatha SureClick) 140 mg subcut Q2W 90 days fluticasone propion-salmeterol 250-50 mcg/dose (Wixela Inhub) 1 inh inhalation Q12H 90 days gabapentin 300 mg PO TID hydroxyzine HCl 10 mg PO DAILY PRN insulin aspart (niacinamide) 100 unit/mL (3 mL) (Fiasp FlexTouch U-100 Insulin) 10 units subcut TID insulin glargine (Basaglar KwikPen U-100 Insulin) 50 units subcut QPM ipratropium bromide 2 sprays intranasal BID ipratropium-albuterol 0.5 mg-3 mg(2.5 mg base)/3 mL 3 mL inhalation Q6H PRN lisinopril 10 mg See Protocol PO DAILY pantoprazole 40 mg (2 x 20 mg) PO DAILY@0630 60 days polyethylene glycol 3350 (Miralax) 17 grams PO DAILY 30 days primidone mg PO DAILY trazodone mg PO HPI Comments Details: Ewelina is a very pleasant 59-year-old female patient of Dr. Watts. She has a past medical history of bilateral carotid stenosis, atherosclerotic cardiovascular disease, NSTEMI, chronic headaches, GERD hope, hyperlipidemia, depression, pneumonia, sepsis, Amos's esophagus, dyslipidemia, hypertension, and diabetes. She presents to the office today as a new patient for recurrent urinary tract infections. In discussion with the patient today she reports having followed up with her PCP multiple times for ongoing urinary tract infections however most recently went to the walk-in clinic and recommendations were made for urology referral for further assessment evaluation. In review of patient's chart it appears urine cultures are as follows: 07/23 Staphylococcus epidermis, 08/23 lactobacillus species, 03/24 E coli, 06/24 E coli, 08/24 E coli and 08/25 E coli. She reports feeling UTI like symptoms initiated shortly after she was hospitalized for COVID back in March of 2024. She currently denies any UTI like symptoms. She reports typical UTI symptoms are incontinence, urinary urgency, urinary frequency, and at times dysuria. In office urinalysis results reviewed with the patient today protein urea and microscopic hematuria noted. She reports following up with Nephrology for ongoing proteinuria and chronic kidney disease. PVR 21ml's. She does report a longstanding history of IBS and follows up with Gastroenterology. In review of patient's chart it appears patient with recent abdominal ultrasound 03/24 noting bilateral kidneys with no calculi, lesions, and or hydronephrosis. Patient also with recent abdominal MRI 10/25 that notes the kidneys are unremarkable. We discussed at length potential causes of recurrent urinary tract infections as well as further treatment options and risks and benefits of these treatment options. We discussed potential for near future in office cystoscopy and or urodynamics for further assessment evaluation. We also discussed at length the importance of weight loss and management and diabetes for improvement in lower urinary tract symptoms as well as overall health and well-being. She otherwise offers no other issues or concerns at this time. [facility] Medical History Carotid stenosis, bilateral Elevated serum GGT level Atherosclerotic cardiovascular disease Non-ST elevation HI (NSTEMI) Action tremor Chronic headaches GERD (gastroesophageal reflux disease) Hyperlipidemia Depression Pneumonia Sepsis Barretts esophagus Dyslipidemia HTN (hypertension) Charcot's joint of foot Diabetes Surgical History History of esophagogastroduodenoscopy (EGD) Hx of colonoscopy H/O foot surgery Hx of cholecystectomy H/O: hysterectomy Family History Son Substance use disorder Father Substance use disorder Mother Substance use disorder Family/Other Substance use disorder Maternal Grandfather Heart problem Maternal Uncle Heart problem Paternal Grandmother Heart problem Sister Heart problem Social History Household Members: None Housing: Condominium Do you presently have visiting nurse or other home services: No Alcohol intake: never Patient Tobacco Use Status: Never used Tobacco e-Cigarette/Vaping Use: Never Used Second Hand Smoke Exposure: No Advance Directives Date on File: 07/25/23 service: No Current occupational status: employed 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 Current occupational exposures/hazards: No Cognitive needs: No Hearing needs: No Vision needs: No Review of Systems Const Reports no additional complaints Eyes Reports no additional complaints ENT Reports no additional complaints Card Reports as per HPI Resp Reports as per HPI GI Reports as per HPI Reports as per HPI Musc Reports as per HPI Neuro Reports no additional complaints Psych Reports no additional complaints Endo Reports as per HPI Physical Exam Const General: cooperative, healthy appearing, comfortable, no acute distress, well developed, alert and awake Nutritional Appearance: overweight Orientation/consciousness: patient oriented x3 Limitations: no limitations HEENT Head: Yes normal to inspection, Yes normocephalic and Yes atraumatic Ears: hearing grossly normal bilaterally Eyes General: appearance normal, both eyes and all related structures Neck Neck: Yes normal visual inspection and Yes trachea midline Chest Chest palpation & inspection: normal inspection of the chest Resp Effort & Inspection: normal respiratory effort and able to speak in complete sentences Cardio Rate: regular rate GI Inspection: Yes normal to inspection General: Yes no CVA tenderness Back/Spine/Pelvis Back: no CVA tenderness Skin General skin exam: no rashes or lesions noted Neuro General: patient oriented x3 Extrem General: Yes normal to inspection Psych Appearance: grossly normal and well kempt Mental Status: mental status grossly normal Speech and movement: Normal speech and movement present and Clear speech present Affect: normal affect Attitude: cooperative Thought process: Normal thought process present Thought content: Normal thought content present Insight: Fair insight present (Psych) Judgement: Fair judgement present (Psych) Office Procedures Post Void Residual Post Residual Void Post Void Residual (PVR): 21 [id number] Void Residual by ultrasound Results AMB Urinalysis, Automated UA Leukoctes 0 Sole/uL Last Edit by Tiffany Layne on 11/10/24 15:36 UA Nitrite Last Edit by Tiffany Layne on 11/10/24 15:36 UA Urobilinogen 0.2 mg/dL Last Edit by Tiffany Layne on 11/10/24 15:36 UA Protein 300 mg/dL Last Edit by Tiffany Layne on 11/10/24 15:36 UA pH 6.0 Last Edit by Tiffany Layne on 11/10/24 15:36 UA Blood 80 Willam/uL Last Edit by Tiffany Layne on 11/10/24 15:36 UA Specific [place] 1.025 Last Edit by Tiffany Malinaqueta on 11/10/24 15:36 UA Ketone Last Edit by Tiffany Layne on 11/10/24 15:36 UA Bilirubin 0 mg/dL Last Edit by Tiffany Layne on 11/10/24 15:36 UA Glucose 0 mg/dL Last Edit by Tiffany Layne on 11/10/24 15:36 Results Reviewed Results Reviewed: Laboratory Last Values Urine pH (Auto) 6.0 11/10/24 15:34 Specific [place] (Auto) 1.025 11/10/24 15:34 Urine Protein (Auto) 300 mg/dL 11/10/24 15:34 Glucose (UA)(Auto) 0 mg/dL 11/10/24 15:34 Urine Blood (Auto) 80 Willam/uL 11/10/24 15:34 Urine Bilirubin (Auto) 0 mg/dL 11/10/24 15:34 Urine Urobilinogen (Auto) 0.2 mg/dL 11/10/24 15:34 Leukocyte Esterase (Auto) 0 Sole/uL 11/10/24 15:34 Assessment & Plan Assessment & Plan (1) Recurrent UTI: Code(s): N39.0 - Urinary tract infection, site not specified Category: Medical Plan In office urinalysis results reviewed with the patient today; as noted above. Previous urine culture results reviewed with the patient today; as noted above. Previous renal ultrasound and abdominal ultrasound results reviewed with the patient today; as noted above. We discussed at length potential causes of recurrent urinary tract infections as well as further treatment options and risks and benefits of these treatment options. Start Estrace cream as discussed and prescribed. We discussed importance of weight loss as well as management of diabetes for improvement in lower urinary tract symptoms as well as overall health and well-being. We discussed potential for near future in office cystoscopy and or urodynamics for further assessment evaluation. We discussed correlation of IBS in relation to recurrent urinary tract infections. Discussed UTI prevention with D mannose supplement, vitamin-C, increasing fluid intake, behavioral therapy with timed voiding, perineal hygiene and postcoital voiding, and management of constipation with stool softeners and increased fiber intake. Follow-up in 3 months with PVR; or sooner with any issues, concerns, and or questions. Orders: Orders AMB Urinalysis Automated Today Z13.9 - Encounter for screening, unspecified AMB Post Void Residual by ultrasound Today N39.41 - Urge incontinence Medications: New estradiol 0.01%(0.1mg/gram) Apply pea-sized amount to urethra daily x1 month and then 3 times per week thereafter 2 grams vaginal DAILY 90 days 42.5 grams 1RF Patient Instructions: The patient had an opportunity to ask questions regarding the treatment plan. All questions were answered. Physical exam, labs, and imaging were discussed and reviewed in detail. As well as risks, benefits, and discussion of treatment choices. No major barriers to understanding were identified. The patient expressed understanding and agreement with the above treatment plan. The patient was made aware they should contact our office by phone for worsening of their current condition, the appearance of new symptoms, or with any questions or concerns. Compliance is encouraged with any medications and follow up testing that is ordered. It is a privilege to be allowed the opportunity to participate in? your urological care.? Again, if you have any questions or concerns If you have any questions or concerns please do not hesitate to contact me. The office is [phone]. This note is constructed using voice recognition software. While every effort has been made to ensure accuracy clinical project manager errors may have been included. Yours sincerely, DARVIN Contreras Coding Level of Care Code New Pt Level 4 (55293) Diagnoses Recurrent UTI N39.0 CPT Codes Post Residual Void - PVR CPT Code: 69667-Gucq Void Residual by ultrasound ([id number])
== END 2024-11-10 15:40 | disposition home or self-care (01) ==
PROVIDERS: PCP Nurse Practitioner Family; Visit Provider Nurse Practitioner Family
DX: N39.0 Urinary tract infection, site not specified (principal); Z13.9 Encounter for screening, unspecified
CPT/HCPCS: 99204

== ENCOUNTER → 2024-11-10 14:49 | Outpatient (BNVA) | payer BC, SELFPAY | PROVIDERS: PCP Nurse Practitioner Family; Visit Provider Nurse Practitioner Family | DX: N39.0 Urinary tract infection, site not specified (principal); N39.41 Urge incontinence | CPT/HCPCS: 51798; 81003 ==

== ENCOUNTER 2024-12-09 08:57 | Outpatient (AMB) | payer BC, SELFPAY ==
[2024-12-09 08:58] VITALS: BP 140/80; PULSE 96; O2SAT 96; BMI 48.4
--- NOTE | 2024-12-09 08:58 | MHC.OFFVIS ---
Vital Signs 12/09/24 08:58 Height 5 ft 5 in Weight 291 lb BMI 48.4 BP 140/80 H Blood Pressure Location Rt brachial Position Sitting Pulse 96 Pulse Source Pulse Oximeter Pulse Oximetry (%) 96 Oxygen Delivery Method Room Air Intake Visit Reasons: dyspnea Partnership Development Manager Required: No Fresh Foods Technician: Fresh Foods Technician offered & declined Accompanied by: Self / Same As Patient Allergies metformin Adverse Reaction (Verified 12/09/24 09:04) diarrhea and vomiting Medication List - Last Reconciled 12/09/24 by Rhina Falk LPN acetaminophen ER 650 mg PO Q12H PRN albuterol sulfate 90 mcg/actuation 2 puffs inhalation Q4-6H PRN amlodipine 5 mg PO DAILY aspirin 81 mg PO DAILY atorvastatin 80 mg PO DAILY blood-glucose sensor (Staff Ranker G6 Sensor device) As directed blood-glucose transmitter (Staff Ranker G6 Transmitter device) As directed bupropion HCl XL 300 mg PO DAILY estradiol 0.01%(0.1mg/gram) 2 grams vaginal DAILY 90 days evolocumab (Repatha SureClick) 140 mg subcut Q2W 90 days fluticasone propion-salmeterol 250-50 mcg/dose (Wixela Inhub) 1 inh inhalation Q12H 90 days gabapentin 300 mg PO TID hydroxyzine HCl 10 mg PO DAILY PRN insulin aspart (niacinamide) 100 unit/mL (3 mL) (Fiasp FlexTouch U-100 Insulin) 10 units subcut TID insulin glargine (Basaglar KwikPen U-100 Insulin) 50 units subcut QPM ipratropium bromide 2 sprays intranasal BID ipratropium-albuterol 0.5 mg-3 mg(2.5 mg base)/3 mL 3 mL inhalation Q6H PRN lisinopril 10 mg See Protocol PO DAILY pantoprazole 40 mg (2 x 20 mg) PO DAILY@0630 60 days polyethylene glycol 3350 (Miralax) 17 grams PO DAILY 30 days primidone mg PO DAILY trazodone mg PO HPI HPI dyspnea: Details: Ewelina is a pleasant 59 year old, never smoker, with underlying history of COVID in 2020 requiring 8 day ICU stay and recent hospital admission for sepsis, DKA, pneumonia and IN in August 2023. She is currently utilizing Wixela 250 mcg, with albuterol as a rescue medication used at least two to three times daily, providing symptom alleviation. She continues to report significant shortness of breath, especially during minimal exertion, concomitant with frequent dry coughing and occasional wheezing. She underwent cardiac evaluation found to have mild CAD, had cardiac cath performed with no clear cause of dyspnea. Echocardiogram with LVEF of 65-70% with mild diastolic dysfunction. No significant valvular issues. Myocardial perfusion imaging study shows ischemia/infarct pattern in the distal anterior wall/apex but could not exclude soft tissue attenuation artifact. Cardiac catheterization with mild disease in the LAD and minimal irregularities in circumflex but otherwise normal coronaries. She has a notable history of gastroesophageal reflux disease with moderate reflux, with future endoscopic evaluation with Dr. Sullivan. She also notes difficulties with weight gain contributing to worsening respiratory symptoms. [facility] Medical History Carotid stenosis, bilateral Elevated serum GGT level Atherosclerotic cardiovascular disease Non-ST elevation IN (NSTEMI) Action tremor Chronic headaches GERD (gastroesophageal reflux disease) Hyperlipidemia Depression Pneumonia Sepsis Barretts esophagus Dyslipidemia HTN (hypertension) Charcot's joint of foot Diabetes Surgical History History of esophagogastroduodenoscopy (EGD) Hx of colonoscopy H/O foot surgery Hx of cholecystectomy H/O: hysterectomy Family History Son Substance use disorder Father Substance use disorder Mother Substance use disorder Family/Other Substance use disorder Maternal Grandfather Heart problem Maternal Uncle Heart problem Paternal Grandmother Heart problem Sister Heart problem Social History Household Members: None Housing: Condominium Do you presently have visiting nurse or other home services: No Alcohol intake: never Patient Tobacco Use Status: Never used Tobacco e-Cigarette/Vaping Use: Never Used Second Hand Smoke Exposure: No Advance Directives Date on File: 07/25/23 service: No Current occupational status: employed 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 Current occupational exposures/hazards: No Cognitive needs: No Hearing needs: No Vision needs: No Review of Systems Const Denies chills, Denies excessive sweating, Denies fever(s), Denies headache(s) and Denies night sweats Eyes Denies dry eyes, Denies irritation and Denies itchy eyes ENT Reports Normal hearing present, Denies headache(s), Denies nasal congestion, Denies nasal discharge, Denies post nasal drip and Denies sore throat Card Denies chest pain, Denies chest pain at rest, Denies chest pain with activity, Denies claudication, Denies leg edema, Denies orthopnea and Denies paroxysmal nocturnal dyspnea Resp Denies chest congestion, Denies excessive phlegm production, Denies pain on inspiration, Denies pain with cough and Denies stridor Musc Denies myalgias Neuro Reports Normal hearing present and Denies headache(s) Endo Denies excessive sweating Gary/Lymph Denies lymphadenopathy Aller/Immun Denies itchy eyes and Denies seasonal rhinorrhea Physical Exam Vital Signs: Last Vital Signs Pulse 96 12/09/24 08:58 BP 140/80 H 12/09/24 08:58 Pulse Ox 96 12/09/24 08:58 Oxygen Delivery Method Room Air 12/09/24 08:58 BMI result Body Mass Index 48.4 Const General: cooperative, healthy appearing, comfortable, no acute distress, well developed and alert Nutritional Appearance: obese Orientation/consciousness: patient oriented x3 Limitations: no limitations HEENT Head: Yes normal to inspection, Yes normocephalic and Yes atraumatic Ears: hearing grossly normal bilaterally and external ears normal Eyes General: appearance normal, both eyes and all related structures Eyelids: Yes eyelids normal Sclerae: sclerae normal EOM: EOMs intact bilaterally Neck Neck: Yes normal visual inspection and Yes no lymphadenopathy Lymphatic: no lymphadenopathy noted Chest Chest palpation & inspection: normal inspection of the chest Resp Effort & Inspection: normal respiratory effort, able to speak in complete sentences, no audible wheezes, no cough, no stridor, not tachypneic, no tripod positioning and no use of accessory muscles Auscultation: diminished lung sounds Cardio Jugular venous distension: no JVD Rate: regular rate Rhythm: regular rhythm Skin Other: warm, dry General skin exam: no rashes or lesions noted Neuro General: patient oriented x3 Cranial nerves: Yes Normal hearing present Cognition (Neuro): normal cognition Gait exam (Neuro): Normal gait present Extrem General: Yes normal to inspection, Yes capillary refill normal, Yes no clubbing, cyanosis or edema and Yes no pedal edema Psych Appearance: grossly normal and well kempt Speech and movement: Normal speech and movement present and Clear speech present Affect: normal affect Attitude: cooperative Thought process: Normal thought process present Thought content: Normal thought content present Insight: Good insight present (Psych) Judgement: Good judgement present (Psych) Assessment & Plan Assessment & Plan (1) Dyspnea on exertion: Code(s): R06.09 - Other forms of dyspnea Category: Medical (2) Abnormal chest x-ray: Code(s): R93.89 - Abnormal findings on diagnostic imaging of other specified body structures Category: Medical (3) Bronchiectasis: Code(s): J47.9 - Bronchiectasis, uncomplicated Category: Medical Plan Ewelina continues to report suboptimal relief with Wixela, previously discussed increasing dose, agreeable today to trial high dose ICS/LABA. Insurance no longer covering Wixela, will trial Breyna. Patient also with chronic rhinitis, will refill flonase. Will obtain CXR to further assess for any underlying parenchymal conditions contributing to cough and consider chest CT. All questions were answered and patient is in agreement of plan. Will follow up in 6-8 weeks or sooner if needed. Orders: Orders XR chest 2V Today R06.09 - Other forms of dyspnea Medications: New fluticasone propionate 50 mcg/actuation (Flonase Allergy Relief) administer into each nostril 1 spray intranasal DAILY 16 grams 3RF budesonide-formoterol 160-4.5 mcg/actuation (Symbicort) 2 puffs inhalation Q12H 10.2 grams 6RF Refilled albuterol sulfate 90 mcg/actuation 2 puffs inhalation Q4-6H PRN 1 ea 3RF for wheezing Discontinued fluticasone propion-salmeterol 250-50 mcg/dose (Wixela Inhub) Discontinued Reason: Patient Completed Course 1 inh inhalation Q12H 90 days 180 ea 1RF Coding Level of Care Code Est Pt Level 4 (25076) Diagnoses Dyspnea on exertion R06.09 Abnormal chest x-ray R93.89 Bronchiectasis J47.9
--- OUTSIDE RECORDS SUMMARY | 2024-12-09 09:51 | XMS_ITS | Clinical Summary ---
Author Organization [facility] Address [address] [place] [address] Care Team Providers Care Cork Insulator Name Role Phone Unavailable Primary Care Provider [...]
--- OUTSIDE RECORDS SUMMARY | 2024-12-09 09:51 | XMS_ITS | Encounter Summary ---
Author Organization [facility] Address [address] [place] [address] Care Team Providers Care Guide Dog Instructor Name Role Phone Ranjana Villarreal PA-C Primary Care Provi erika Reason for Referral * Diagnostic Imaging (Routine) - Authorized Specialty Diagnoses / Procedures Referred By Contac t Referred To Contact Diagnoses Pain in left ankle and joints of left foot Procedures CT Ankle w/o contrast-Left Eladio Becker MD [address] [place] [address] [facility] Referral ID Status Reason Start Date Expiration Date V isits Requested Visits Authorized [id number] Authorized 11/28/2024 11/29/2025 1 1 * Orthopedic (Routine) - Pending Review Specialty Diagnoses / Procedures Referred By Contac t Referred To Contact Surgery, Orthopedic / Orthopedic Surgery Diagnoses Morbid obesity (HCC) Eladio Becker MD [address] [place] [address] [facility] [address] [place] [phone] Referral ID Status Reason Start Date Expiration Date Visits Requested Visits Authorized [id number] Pending Review Consult 11/25/2024 11/26/2025 1 1 Comments Weight loss nutrition Reason for Visit * Reason Comments New Patient Follow-up * Orthopedic (Routine) - Closed Specialty Diagnoses / Procedures Referred By Sarah yap Referred To Contact Surgery, Orthopedic Diagnoses Charcot's arthropathy Ranjana Villarreal PA-C [address] [place] [address] Eladio Becker MD [address] [place] [address] Referral ID Status Reason Start Date Expiration Date V isits Requested Visits Authorized [id number] Closed Second Opinion 11/03/2024 11/04/2025 1 1 Encounter Details Date Type Department Care Team ([facility] st Contact Info) Description 11/25/2024 10:00 AM EST [facility] [address] Eladio Becker MD [address] [place] [address] Pain in both knees, unspecified chronicity (Primary Dx); Pain in left ankle and joints of left foot; Morbid obesity (HCC) Social History Tobacco Use Types Packs/Day Years [...] PM EDT documented as of this encounter Progress Notes * Eladio Becker MD - 11/25/2024 10:00 AM EST Images from the original note were not included. [address] [facility] [address] [place] [phone] Encounter Date: 11/25/2024 1. Pain in both knees, unspecified chronicity XR Knee 4+ views-Bilateral 2. Pain in left ankle and joints of left foot XR Foot 3+ views-Left XR Ankle 2 views-Left XR Foot 3+ views-Left XR Ankle 2 views-Left 3. Morbid obesity (HCC) Amb Referral to [facility] Assessment & Plan Ewelina Mathis is a 59 y.o. female with chronic L foot/ankle pain. She is s/p fusion surgery with Dr. Almanzar. Her imaging shows evidence of non-union. Plan includes CT scan to assess the quality of bone and healing status, weight- bearing x-rays to evaluate alignment and include knee x-rays, referralto Dr. Reynolds for evaluation and management of knee pain. We discussed potential revision surgery. Referral was placed to [facility] for DM management. She will follow up with me after CT scan is done to discuss the result. History of Present Illness: Ewelina Mathis is a 59 y.o. female who presents today for a second opinion regarding chronic L foot/ankle pain. The patient reports a history of a foot injury in 2019 after tripping while stepping offa bus and landing hard on her foot, leading to a sprained ankle. The patient has diabetes, which was noted to delay healing. Initial treatment included a boot and physical therapy, which were ineffective. She was initially evaluated at [place] then at [facility]. The patient underwent surgery with Dr. Almanzar, involving fusion and insertion of a screw from the toe to the ankle, which later broke. The patient has received cortisone shots but continues to experience significant pain, affecting quality of life. Pain is described as constant, varying in location, including the left side, inside, top of the foot, and the whole ankle. The patient reports numbness in the foot and swelling, which worsens at times. She also has back, knee, and hip pain, which have been exacerbating lately, which she suspects is d/t weight gain. The patient has gained approximately 30 pounds in the last year but she states that her sugar is well controlled with recent HbA1c of 6.9. She tries to exercise. She recently switched PCP and is satisfied currently. She denies hx of ulcer on the L foot but she does have a hxof ulcer at the dorsal aspect of her contralateral foot which took months to heal d/t uncontrolled glucose at that time. She was hospitalized and went home with IV abx for R foot ulcer. She sees a chief controller center for her toenails. She is unable to stand/walk for long periods of time, chronic limping, and walks on the lateral side of her foot. The patient reports difficulty walking and she uses a rolling walker when outdoors. She tried a brace which made her limp more, exacerbating her back pain. Thepatient has a sedentary job but is unhappy that she is limited in activities with a kbkz-bydf-qol granddaughter. The patient is frustrated with the current situation and is open to further surgical intervention if it could improve quality of life. 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 Well-healed medial column incision with no evidence of infection or palpable hardware, no active swelling profile is appreciable today. Tender to palpation, laterally, she has a lateral overload stance posture, no evidence of sagittal instability. Procedure Procedures Imaging Imaging Impression: ankle OA is seen on lateral view. Mild varus stance alignment Solid calccub fusion. Failed medial column mini dynanail. She would need a derotational osteotomy and LDCO Past Medical History Past Medical History: Diagnosis Date Anemia Anxiety CAD (coronary artery disease) 11/03/2024 Charcot joint of foot Community acquired pneumonia 07/18/2023 Depression Diabetes mellitus (HCC) Diabetic neuropathy associated with type 2 diabetes mellitus (HCC) 11/03/2024 Gastroesophageal reflux disease without esophagitis 11/03/2024 History of COVID-19 11/03/2024 History of non-ST elevation myocardial infarction (NSTEMI) 08/10/2023 Hyperlipidemia Hypertension IBS (irritable bowel syndrome) Mixed anxiety depressive disorder 11/03/2024 Morbid obesity (HCC) 11/03/2024 Obesity Occipital neuralgia Orthostatic hypotension 07/18/2023 Other hyperlipidemia 11/03/2024 Primary hypertension 11/03/2024 Primary insomnia 11/03/2024 Recurrent major depressive disorder, in partial remission 11/03/2024 Sleep-disordered breathing 11/03/2024 Tremor 11/03/2024 Type 2 diabetes mellitus without complication, with long-term current use of insulin (HCC) 11/03/2024 Past Surgical History: Procedure Laterality Date SECTION CHOLECYSTECTOMY HYSTERECTOMY No family history on file. Social History Tobacco Use Smoking status: Never Smokeless tobacco: Never Vaping Use Vaping status: Never Used Substance Use Topics Alcohol use: Yes Drug use: Yes Types: Marijuana Medication List Current Outpatient Medications: albuterol (PROVENTIL HFA; VENTOLIN HFA) 108 (90 Base) MCG/ACT inhaler, INHALE 2 PUFFS EVERY 4 TO 6 HOURS NEEDED FOR SHORTNESS OF BREATH OR FOR WHEEZE, Disp: , Rfl: amLODIPine (NORVASC) 5 MG tablet, Take 1 tablet (5 mg total) by mouth daily., Disp: 30 tablet, Rfl:0 aspirin enteric coated (ECOTRIN LOW STRENGTH) 81 MG EC tablet, Take 1 tablet (81 mg total) by mouthdaily., Disp: , Rfl: atorvastatin (LIPITOR) 80 MG tablet, Take 1 tablet (80 mg total) by mouth daily., Disp: , Rfl: buPROPion (WELLBUTRIN XL) 300 MG 24 hr tablet, Take 1 tablet (300 mg total) by mouth every morning., Disp: , Rfl: Continuous Glucose Sensor (Dexcom G6 Sensor) [facility], USE 1 SENSOR EVERY 10 DAYS, Disp: , Rfl: Continuous Glucose Transmitter (Dexcom G6 Transmitter) [facility], 1 DEVICE BY DOES NOT APPLY ROUTE SEE ADMIN INSTRUCTIONS. CHANGE TRANSMITTER EVERY 3 MONTHS., Disp: , Rfl: evolocumab (REPATHA SURECLICK) 140 MG/ML auto-injector, Inject 1 mL (140 mg total) under the skin every 14 days (2 weeks)., Disp: , Rfl: fluticasone-salmeterol 100-50 mcg/inh diskus inhaler, Inhale 1 puff 2 (two) times a day., Disp: , Rfl: gabapentin (NEURONTIN) 300 MG capsule, Take 1 capsule (300 mg total) by mouth 3 (three) times a day., Disp: , Rfl: hydrOXYzine HCl (ATARAX) 10 MG tablet, Take 1 tablet (10 mg total) by mouth daily as needed., Disp:, Rfl: insulin aspart (NovoLOG FlexPen) 100 UNIT/ML prefilled pen injection, Inject 10 Units under the skin 3 (three) times a day before meals. Patient reports utilizing sliding scale, Disp: , Rfl: insulin glargine (insulin glargine, BASAGLAR KWIKPEN,) 100 units/mL prefilled pen injection, [id number] Units under the skin nightly., Disp: , Rfl: ipratropium (ATROVENT) 0.03 % nasal spray, USE 2 SPRAYS IN EACH NOSTIL TWICE DAILY, Disp: , Rfl: ipratropium-albuterol (DUONEB) 0.5-2.5 mg/3 mL nebulizer solution, 3 ML INHALED EVERY 6 HOURS NEEDED FOR WHEEZING, Disp: , Rfl: lisinopril (PRINIVIL,ZeSTRIL) 10 MG tablet, Take 1 tablet (10 mg total) by mouth daily., Disp: , Rfl: PANTOprazole (PROTONIX) 20 MG tablet, Take 2 tablets (40 mg total) by mouth daily., Disp: , Rfl: primidone (MYSOLINE) 50 MG tablet, Take 1 tablet (50 mg total) by mouth., Disp: , Rfl: traMADol 25 MG Tab, Take 25 mg by mouth 4 times daily (every 6 hours) as needed for severe pain., Disp: 10 tablet, Rfl: 0 traZODone (DESYREL) 100 MG tablet, Take 1 tablet (100 mg total) by mouth nightly., Disp: , Rfl: Allergies Allergies Allergen Reactions Ceftriaxone Rash/Dermatitis Metformin Diarrhea I, Jessica Garcia, hereby attest that I have served as a scribe for Dr. Eladio Becker, duringthis visit. I understand the importance of accurate and timely documentation in patient care and confirm that all information recorded during the consultation was completed to the best of my ability under the supervision of Dr. Becker. Eladio Becker MD documented in this encounter Miscellaneous Notes * Addendum Note - Debby Paz - 11/25/2024 10:00 AM ESTAddended by: DEBBY PAZ on: 11/28/2024 10:49 AM Modules accepted: Orders documented in this encounter Plan of Treatment Upcoming Encounters Date Type Department Care Team (Late st Contact Info) Description 12/15/2024 3:00 PM EDT Consult [facility] [place] [address] [facility] [address], [place] [address] Eladio Becker MD [address] [place] [address] Rebecca Angel APRN [address] [place] [address] 01/01/2025 1:00 PM EDT Office Visit [address] [phone] Ranjana Villarreal PA-C [address] [place] [address] 01/22/2025 10:30 AM EDT Consult [facility] [address] [phone] Dianne Mackay PA [address] [address] Scheduled Orders Name Type Priority Associated Diagnoses Orde r Schedule CT Ankle w/o contrast-Left Imaging Routine Pain in left ankle and joints of left foot Expected: 11/28/2024, Expires: 11/28/2025 Scheduled Referrals Name Type Priority Associated Diagnoses Orde r Schedule Amb Referral to [facility] Outpatient Referral Routine Morbid obesity (HCC) Ordered: 11/25/2024 documented as of this encounter Procedures Procedure Name Priority Date/Time Associated Diagnosis Comments XR KNEE 4+ VIEWS-BILATERAL Routine 11/25/2024 12:04 PM EST Pain in both knees, unspecified chronicity XR FOOT 3+ VIEWS-LEFT Routine 11/25/2024 11:00 AM EST Pain in left ankle and joints of left foot XR ANKLE 2 VIEWS-LEFT Routine 11/25/2024 11:00 AM EST Pain in left ankle and joints of left foot documented in this encounter Results * XR Knee 4+ views-Bilateral (11/25/2024 12:04 PM EST) Narrative [facility] - 11/25/2024 12:04 PM EST [facility] and images reviewed by orthopedic provider. ??Any findings are documented within ambulatory encounter note on date of service. Eladio HARDIN DIAGNOSTIC IMAGI NG ORDERABLES Performing Organization Address [facility] de Phone Number OA * XR Ankle 2 views-Left (11/25/2024 11:00 AM EST) Narrative [facility] - 11/25/2024 11:00 AM EST This [facility] and images reviewed by orthopedic provider. ??Any findings are documented within ambulatory encounter note on date of service. Eladio HARDIN DIAGNOSTIC IMAGI NG ORDERABLES Performing Organization Address [facility] de Phone Number OA * XR Foot 3+ views-Left (11/25/2024 11:00 AM EST) Narrative [facility] - 11/25/2024 11:00 AM EST This exam [facility] and images reviewed by orthopedic provider. ??Any findings are documented within ambulatory encounter note on date of service. Eladio HARDIN DIAGNOSTIC IMAGI NG ORDERABLES Performing Organization Address [facility] de Phone Number [facility] documented in this encounter Visit Diagnoses Diagnosis Pain in both knees, unspecified chronicity- Primary Pain in left ankle and joints of left foot Morbid obesity (HCC) Morbid obesity documented in this encounter Care Teams Guide Dog Instructor Relationship Specialty Start Date End Date Ranjana Villarreal PA-C [address] [place] [address] PCP - General Internal Medicine 11/03/24 documented as of this encounter
--- OUTSIDE RECORDS SUMMARY | 2024-12-09 09:51 | XMS_ITS | Clinical Summary ---
Author Organization [facility] Address [address] [place] [address] Phone Care Team Providers Care Finance Officer Name Role Phone Joel Alegria NP Primary Care Provider [phone] Immunizations Name Administration Dates Next Due Moderna SARS-CoV-2 COVID-19, mRNA, LNP-S, preservative free 12/29/2020,12/01/2020 Surgical History Surgery Date Site/Laterality Comments CHOLECYSTECTOMY 2000 PROCEDURE: HISTORICAL CHOLECYSTECTOMY ENDOMETRIAL ABLATION PROCEDURE: MS ENDOMETRIAL ABLTJ THERMAL W/O HYSTEROSCOPIC GUID; COMMENT: done twice OTHER SURGICAL HISTORY PROCEDURE: ---- OTHER ----; COMMENT: skin graft for diabetic ulcer SECTION 03/1997 PROCEDURE: HISTORICAL DELIVERY COLONOSCOPY 06/18/2009 PROCEDURE: HISTORICAL COLONOSCOPY; COMMENT: Normal to cecum, repeat 10 years (small grade 2 internal hemorrhoids) UPPER GASTROINTESTINAL ENDOSCOPY 11/26/2001 PROCEDURE: UPPER GI ENDOSCOPY/EXAM; COMMENT: Normal, iron deficiency anemia most likely r/t a director regulatory compliance source. OTHER SURGICAL HISTORY 2004 PROCEDURE: HISTORICAL [...] mother Diabetic ulcer of right foot (CMS/HCC) 10/24/201 8 DX:Diabetic ulcer of right foot (HCC); COMMENT: ED evaluation 06/29/18, referred to Dr. Ewing, [facility] wound care Managed with IV abx [...] left wrist Amos's esophagus 03/23/2022 DX:Amos's esophagus Mingo grade A esophagitis 03/23/2022 DX:Mingo grade A esophagitis Diabetes mellitus ([facility]) DX:D iabetes mellitus (HCC) Hypertension DX:Hypertension Hypercholesterolemia DX:Hypercho lesterolemia Anxiety DX:Anxiety GERD (gastroesophageal reflux disease) DX:GERD (gastroesophageal reflux disease) Family History Medical History Relation Name Comments Other: Graves Disease Brother Heart failure Maternal Grandfather Stroke Other cancer Maternal Grandmother Liver Breast cancer Mother Heart failure Paternal Grandfather [place], Hy pertension Other cancer Paternal Grandmother Kidney [...] drink = 0.6 oz pur e alcohol) Comments No Sex and Gender Information Value Date Recorded Sex Assigned at Female 08/01/2024 12:02 PM EDT Legal Sex Female 11:00 PM EST Gender Identity Female 08/01/2024 12:02 PM EDT Sexual Orientation Not on file Obstetrics History Para Term [...] 3 - 19+ 3-dose series) 1985 Pneumococcal Vaccine: 50+ Years (1 of 1 - PCV) 2016 Zoster Vaccines (1 of 2) 2016 Colorectal Cancer Screening: Colonoscopy 09/09/2022 Depression Screening 09/09/2022 HIV Screening 09/09/2022 Hepatitis C Screening 09/09/2022 Social Influencers of Health Screening 09/09/2022 Diabetes: Annual Urine Albumin-Creatinine Ratio (uACR) 09/16/2022 Diabetes: Blood Sugar Control Test (HGBA1C) 01/09/2024 07/10/2023 COVID-19 Vaccine ( season) 2024 12/29/2020, 12/01/2020 Influenza Vaccine (#1) 2024 , 07/15/2020, 07/18/2018, Additional history exists DTaP,Tdap,and Td [...] patient's age to complete this topic Meningococcal B Vacine Aged Out No lo nger eligible based on patient's age to complete [...] for breast cancer from Last 3 Months or Most Recently Relevant to Health Maintenance Results * MG Mammo Digital Screening w [...] Signed Date: 08/05/2024 08:54 ET Workstation ID: [id number] Transcribed By: Self Edit Transcribed Date: 08/05/2024 [...] Signed Date: 08/05/2024 08:54 ET Workstation ID: [id number] Transcribed By: Self Edit Transcribed Date: 08/05/2024 08:44 ET us Self Referral Sppl IMG BI PROCEDURES Final Resul t from Last 3 Months or Most Recently Relevant to Health Maintenance [place] [address] [place] [address] ([facility]) Care Teams Finance Officer Relationship Specialty Start Date End Date Joel Alegria NP [address] [place], [place] PCP - General Family Medicine 08/01/24
--- OUTSIDE RECORDS SUMMARY | 2024-12-09 09:51 | XMS_ITS | Clinical Summary ---
Author Organization [facility] Address [address] [place] [address] Care Team Providers Care Senior Product Analyst Name Role Phone Unavailable Primary Care Provider [...] Mathis Personal/Family Self 1965 [address] [place] [address]
--- OUTSIDE RECORDS SUMMARY | 2024-12-09 09:51 | XMS_ITS | Encounter Summary ---
Author Organization [facility] Address [address] [place] [address] Care Team Providers Care Field Attendant Name Role Phone Ranjana Villarreal PA-C Primary Care Provi erika Encounter Details Date Type Department Care Team (Late st Contact Info) Description 11/20/2024 Scanned Document [address] [place] [address] Primary Care, Scan Social History Tobacco Use Types Packs/Day Years [...] Info) Description 12/15/2024 3:00 PM EDT Consult [facility] [place] [address] [facility] [address] [place] [address] Eladio Becker MD [address] [place] [phone] Rebecca Angel APRN [address] [place] [address] 01/01/2025 1:00 PM EDT Office Visit [facility] 100 [facility] [address] [place] [address] Ranjana Villarreal PA-C [address] [place] [address] 01/22/2025 10:30 AM EDT Consult [facility] 113 [facility] [address] [place] [phone] Dianne Mackay PA 113 [facility] [address] [place] [address] documented as of this encounter Visit Diagnoses Not on filedocumented in this encounter Care Teams Field Attendant Relationship Specialty Start Date End Date Ranjana Villarreal PA-C [address] [place] [address] PCP - General Internal Medicine 11/03/24 documented as of this encounter
--- OUTSIDE RECORDS SUMMARY | 2024-12-09 09:51 | XMS_ITS | Continuity of Care Document ---
Author Organization [facility] [address] [facility] [address] [place] [address] Phone [phone] Care Team Providers Care Graining Operator Name Role Phone Joel Alegria Care Team Information Senior Svp [phone] Problems Active Problems Provider Date Type 2 [...] Comments Sex Unknown Lives With Alone Occupation [employer] Work Status Full-Time Employment ETOH Use Rarely consumes alcohol Tobacco Use Start: Unknown Patient has never smoked Allergies and adverse reactions Active Allergies Criticality Reaction Severity Comments Date Metformin Unable to assess criticality Diarrhea 08/10/2023 Inactive Allergies NKDA Unable to assess criticality 08/10/2023 Medications Active Medications SIG Qnty Indications Order ing Provider Date Novolog Vbjemzf065Ygcy/ML Solution Pen-Inject inject 10 subcutaneously units 3 times a day before meals 30ml E11.Jared Bui M.D. 06/30/2024 Baqsimi One Zogl3rq/Dose Powder spray into nostril as needed for low sugar reaction 1units Susan Bui M.D. 02/14/2024 Lantus Vcehetjr177Kmmj/ML Solution Pen-Inject inject 50 units daily as directed 45ml E11.42 Susan Bui M.D. 10/26/2023 Dexcom G6 TransmitterMisc To Use With Sensors DX E11.42 1units Susan Bui M.D. Iazhyttsm44ac Tablets Take 1 Tablet By Mouth Every Day For 30 Days Lynnette Cardona MD Atorvastatin Stfkrcv84zq Tablets 1 by mouth every day Unknown Amlodipine Mzxqwjso1qm Tablets Take 1 Tablet (5 MG Total) By Mouth Daily. Unknown Repatha Owweixisz680ve/ml Solution Auto-Inject inject 1 syringe under the skin every 2 weeks Unknown Aspirin 8181mg Tablets DR 1 by mouth every day Susan Bui M.D. Hydroxyzine WLJ94yi Tablets Take 1 Tablet By Mouth Every Day as Needed Unknown Dexcom G6 SensorMisc use 1 sensor every 10 days 9units E11.42 Susan Bui M.D. Dexcom G6 SensorMisc Please See Attached For Detailed Directions Unknown Ocmqiqcrqt446wu Capsules Take 2 Capsule By Mouth Three Times A Day Unknown Pantoprazole Rhlfph47bw Tablets DR Take 1 Tablet By Mouth Every Morning (Before Breakfast) For 360 Days. Unknown Albuterol Sulfate MXE159(90Base) mcg/Act Aerosol Take 2 Puffs By Mouth Every 4 Hours as Needed For Wheeze Unknown Ipratropium Bromide0.06% Solution Administer 2 Sprays Into Each Nostril Every 6 Hours as Needed For Rhinitis. Unknown Ptxpuvmtti45kd Tablets Take 1 Tablet By Mouth Every Day Unknown Hyoscyamine Sulfate0.125mg Tablets Take 1 Tablet By Mouth 4 Times Daily as Needed For Cramping Or Diarrhea For Up T Unknown Basaglar Sgqsqqu522Ozym/ML Solution Pen-Inject Inject 55 Units Into The Skin AT Bedtime 60ml E11.42 Susan Bui M.D. Trazodone RBN010yt Tablets Take 1 Tablet By Mouth Everyday [...] Acquired Date Facility Test Result H/L Range Note Glucose Fingerstick 10/09/2024 Inhouse Glucose Fingerstick 119 Hemoglobin A1c 10/09/2024 Inhouse Hemoglobin A1c 6.9% Glucose Fingerstick 02/14/2024 Inhouse Glucose Fingerstick 43 Hemoglobin A1c 02/14/2024 Inhouse Hemoglobin A1c 7.3% Glucose Fingerstick 10/12/2023 Inhouse Glucose Fingerstick 208 Hemoglobin A1c 10/12/2023 Inhouse Hemoglobin A1c 6.9% Gad65 Autoantibodies 08/15/2023 [facility] Gad65 Autoantibodies <5.0 1 Islet Cell Antibody 512 08/15/2023 [facility] Islet Cell Antibody 512 <7.5 2 Insulin Antibody 08/15/2023 [facility] Insulin Antibody 12 High 3 1 Reference range: 0.0 to 5.0 Unit: U/mL Test performed at [address] [address] 2 Unit: U/mL (NOTE) Reference Range: <7.5 Negative > or EQ 7.5 Positive Test performed by [facility], [address] [place] [address] 3 Unit: uU/mL (NOTE) This test is also known as insulin autoantibody or IAA. This test was developed and its performance characteristics determined by [facility]. It has not been cleared or approved by the Food and Drug Administration. Reference Range: <5.0 Negative > or EQ 5.0 Positive Test performed by [facility], [address] [facility], [place] [address] Procedures Date Code Description Status 08/10/2023 57898 Collection Of Venous Blood B y Venipuncture [...] Refer to Reason for Referral Status Appt Rush Chip Brannon MD POSSIBLE SEIZURES Closed [address] [facility] [address] [place] [address] [phone]
--- OUTSIDE RECORDS SUMMARY | 2024-12-09 09:51 | XMS_ITS | Encounter Summary ---
Author Organization [facility] Address [address] [place] [address] Care Team Providers Care Trauma Registrar Name Role Phone Ranjana Villarreal PA-C Primary Care Provi erika Encounter Details Date Type Department Care Team (Late st Contact Info) Description 12/02/2024 Documentation [facility] [place] 31 [facility] [address] [phone] Rebecca Angel APRN 31 [place] [address] Social History Tobacco Use Types Packs/Day Years [...] as of this encounter Progress Notes * Rebecca Angel APRN - 12/02/2024 12:17 PM EST BJI MODIFY Visit type: Telephone encounter Contact type: Initial triage call Referral reason: Weight loss Referring Provider: Eladio Becker MD Status in program: Accepted documented in this encounter Plan of Treatment Upcoming Encounters Date Type Department Care Team ([facility] st Contact Info) Description 12/15/2024 3:00 PM EDT Consult [facility] [place] 31 [facility] [address] [address] Eladio Becker MD [address] [phone] Rebecca Angel APRN 31 [place] [address] 01/01/2025 1:00 PM EDT Office Visit [facility] 100 [facility] 101 [place] [address] Ranjana Villarreal PA-C 100 [place] [address] 01/22/2025 10:30 AM EDT Consult [facility] 113 [facility] 303 [place] [phone] Dianne Mackay PA 113 [facility] 303 [place] [address] documented as of this encounter Visit Diagnoses Not on filedocumented in this encounter Care Teams Trauma Registrar Relationship Specialty Start Date End Date Ranjana Villarreal PA-C [address] [place] [address] PCP - General Internal Medicine 11/03/24 documented as of this encounter
--- OUTSIDE RECORDS SUMMARY | 2024-12-09 09:51 | XMS_ITS | Clinical Summary ---
Author Organization [facility] Address [address] [place] [address] Care Team Providers Care Negative Cutter Name Role Phone Ranjana Villarreal PA-C Primary Care Provi erika Allergies Active Allergy Reactions Criticality Noted Date Comments Ceftriaxone Rash/Dermatitis Low 06/13/2023 Metformin Diarrhea Low 01/06/2024 Medications Medication Sig Dispensed Refills Start Date End Date Status lisinopril (PRINIVIL,ZeSTRIL) 10 MG tablet Take 1 [...] IN EACH NOSTIL TWICE DAILY 12/31/2023 Active ipratropium-albuter ol (DUONEB) 0.5-2.5 mg/3 mL nebulizer solution 3 ML INHALED EVERY 6 HOURS NEEDED FOR WHEEZING 12/05/2023 Active amLODIPine (NORVASC) 5 MG tabletIndications:O ccipital neuralgia of left side Take 1 tablet (5 mg total) by mouth daily. 30 tablet 01/09/2024 Active traMADol 25 MG TabIndications:Occi pital neuralgia of left side Take 25 mg by mouth 4 times daily (every 6 hours) as needed for severe pain. 10 tablet 01/08/2024 Active Continuous Glucose Sensor (Dexcom G6 Sensor) [facility] USE 1 SENSOR EVERY 10 DAYS 06/25/2024 Active Continuous Glucose Transmitter (Dexcom G6 Transmitter) [facility] 1 DEVICE BY DOES NOT APPLY ROUTE SEE ADMIN INSTRUCTIONS. CHANGE TRANSMITTER EVERY 3 MONTHS. 05/15/2024 Active primidone (MYSOLINE) 50 MG tablet Take 1 tablet (50 mg total) by mouth. 07/24/2024 Active fluticasone-salmete rol 100-50 mcg/inh diskus inhaler Inhale 1 puff 2 (two) times a day. Active Active Problems Problem Noted Date Diagnosed Date [...] Encounters Date Type Department Care Team Description 12/02/2024 Documentation [facility] and [facility] [place] 31 [facility] [address], [place] [address] Rebecca Angel APRN 11/25/2024 11:55 AM EST [facility]illary [facility] [address] [address] 11/25/2024 10:45 AM EST Anc[facility] [address] [address] 11/25/2024 10:00 AM EST Consult [facility] [address] [address] Eladio Becker MD Pain in both knees, unspecified chronicity (Primary Dx); Pain in left ankle and joints of left foot; Morbid obesity (HCC) 11/20/2024 Scanned Document [address] [address] Primary Care, Scan 11/04/[address] 101 [place] [address] Ranjana Villarreal PA-C 11/03/2024 3:15 PM EST Office Visit [address] [place] [address] Ranjana Villarreal PA-C Charcot's arthropathy (Primary Dx); Gastroesophageal reflux disease without esophagitis; Primary hypertension; Type 2 diabetes mellitus with diabetic neuropathic arthropathy, with long-term current use of insulin (HCC); Other hyperlipidemia; Recurrent major depressive disorder, in partial remission; Amos's esophagus without dysplasia; Essential tremor; Dyslipidemia; Carotid artery stenosis without cerebral infarction, bilateral 11/03/2024 Travel 10/27/2024 Transcribe Orders [facility] 30 [place] [phone] Unknown Full incontinence of feces (Primary Dx) [...] Info) Description 12/15/2024 3:00 PM EDT Consult [facility] [place] 31 [facility] [address], [place] [address] Eladio Becker MD 7 [place] [address] Rebecca Angel APRN 31 [place] [address] 01/01/2025 1:00 PM EDT Office Visit [facility] 100 [facility] 101 [place] [phone] Ranjana Villarreal PA-C 100 [place] [address] 01/22/2025 10:30 AM EDT Consult [facility] [address] [phone] Dianne Mackay PA [address] [phone] Health Maintenance Due Date Last Done Comments [...] Pain in both knees, unspecified chronicity XR ANKLE 2 VIEWS-LEFT Routine 11/25/2024 11:00 AM EST Pain in left ankle and joints of left foot XR FOOT 3+ VIEWS-LEFT Routine 11/25/2024 11:00 AM EST Pain in left ankle and joints of left foot HEMOGLOBIN A1C WITH ESTIMATED AVERAGE GLUCOSE STAT 01/07/2024 4:32 AM EDT BASIC METABOLIC PANEL STAT 01/07/2024 4:32 AM EDT from Last 3 Months or Most Recently Relevant to Health Maintenance Results * XR Knee 4+ views-Bilateral (11/25/2024 12:04 PM EST) Narrative OAH - 11/25/2024 12:04 PM EST This exam was performed in office at [facility] and images reviewed by orthopedic provider. ??Any findings are documented within ambulatory encounter note on date of service. Eladio DOUGLASG DIAGNOSTIC IMAGI NG ORDERABLES Performing Organization Address [facility] de Phone Number OAH * XR Foot 3+ views-Left (11/25/2024 11:00 AM EST) Narrative [facility] - 11/25/2024 11:00 AM EST This exam was performed in office at [facility] and images reviewed by orthopedic provider. ??Any findings are documented within ambulatory encounter note on date of service. Eladio DOUGLASG DIAGNOSTIC IMAGI NG ORDERABLES Performing Organization Address [facility] de Phone Number OAH * XR Ankle 2 views-Left (11/25/2024 11:00 AM EST) Narrative [facility] - 11/25/2024 11:00 AM EST [facility] and [facility] by [facility] provider. ??Any findings are documented within ambulatory encounter note on date of service. Eladio HARDIN DIAGNOSTIC IMAGI NG ORDERABLES Performing Organization Address [facility] de Phone Number OA * (ABNORMAL) Hemoglobin A1c with Estimated Average Glucose (01/07/2024 4:32 AM EDT) Hemoglobin A1C 7.3(H) <5.7 % 01/07/2024 5:20 AM EDT [facility] Comment: A1c% ? Interpretation 5.7 - 6.0 ?Increase risk of diabetes 6.1 - 6.4 ?Higher risk of diabetes > or = 6.5 ?? Consistent with diabetes Diabetes Care, 33(Supp 1):S1-S61, 2010 Estimated Average Glucose 163 mg/dL 01/07/2024 5:20 AM EDT [facility] Blood specimen (specimen) Blood specimen / Unknown 01/07/2024 4:32 AM EDT 01/07/2024 4:37 AM EDT Nas Garcia MD [place] [address], [place] [address] * (ABNORMAL) Basic Metabolic Panel (01/07/2024 4:32 AM EDT) Glucose 181(H) 65 - 99 mg/dL 01/07/2024 5:19 AM [facility] Comment:Fasting: <100 mg/dL, Non-Fasting: <200 mg/dL (ADA 2004) Blood Urea Nitrogen (BUN) 25(H) 8 - 21 mg/dL 01/07/2024 5:19 AM [facility] Creatinine 1.4(H) 0.4 - 1.1 mg/dL 01/07/2024 5:19 AM [facility] eGFR 44(L) >59 01/07/2024 5:19 AM [facility] Comment:CKD-EPI (2020) in mL /min/1.73 sq meters. Sodium 138 136 - 145 mmol/L 01/07/2024 5:19 AM [facility] Potassium 4.1 3.4 - 5.3 mmol/L 01/07/2024 5:19 AM [facility] Chloride 106 98 - 107 mmol/L 01/07/2024 5:19 AM [facility] CO2 24 22 - 33 mmol/L 01/07/2024 5:19 AM [facility] Anion Gap 8 7 - 17 01/07/2024 5:19 AM [facility] Calcium 9.0 8.7 - 10.5 mg/dL 01/07/2024 5:19 AM [facility] BUN/Creatinine Ratio 18 10.0 - 25.0 Ratio 01/07/2024 5:19 AM [facility] Blood specimen (specimen) (Plasma/Serum) 01/07/2024 4:32 AM EDT 01/07/2024 4:37 AM EDT Nas Garcia [place] [address], [address] [place] [address] from Last 3 Months or Most Recently Relevant to Health Maintenance Advance Directives * Full Code (Latest Code Status on File) Date Activated Date Inactivated Comments 01/06/2024 5:40 PM Question Answer Comments Decision Thoroughly Discussed with: Patient * Full Code Date Activated Date Inactivated Comments 08/30/2023 12:10 PM 01/06/2024 2:18 PM Full Code Care Teams Negative Cutter Relationship Specialty Start Date End Date Ranjana Villarreal PA-C [address] [place] [address] PCP - General Internal Medicine 11/03/24
--- OUTSIDE RECORDS SUMMARY | 2024-12-09 09:51 | XMS_ITS | Encounter Summary ---
Author Organization [facility] Address 100 [place] [address] Care Team Providers Care Systems Navigator Name Role Phone Ranjana Villarreal PA-C Primary Care Provi erika Encounter Details Date Type Department Care Team (Late st Contact Info) Description 11/25/2024 10:45 AM EST [facility] [address] [place] [address] Social History Tobacco Use Types Packs/Day Years [...] Info) Description 12/15/2024 3:00 PM EDT Consult [facility] Bone [facility] [place] 31 [facility] [address] [place] [address] Eladio Becker MD 7 [place] [address] Rebecca Angel APRN 31 [place] [address] 01/01/2025 1:00 PM EDT Office Visit [address] 101 [place] [address] Ranjana Villarreal PA-C 100 [place] [address] 01/22/2025 10:30 AM EDT Consult [facility] 113 [facility] 303 [place] [phone] Dianne Mackay PA 113 [facility] 303 [place] [address] documented as of this encounter Procedures Procedure Name Priority Date/Time Associated Diagnosis Comments XR ANKLE 2 VIEWS-LEFT Routine 11/25/2024 11:00 AM EST Pain in left ankle and joints of left foot XR FOOT 3+ VIEWS-LEFT Routine 11/25/2024 11:00 AM EST Pain in left ankle and joints of left foot documented in this encounter Results * XR Ankle 2 views-Left (11/25/2024 11:00 AM EST) Narrative OAH - 11/25/2024 11:00 AM EST This exam was performed in office at [facility] and images reviewed by orthopedic provider. ??Any findings are documented within ambulatory encounter note on date of service. Eladio Becker MD IMG DIAGNOSTIC IMAGI NG ORDERABLES OAH * XR Foot 3+ views-Left (11/25/2024 11:00 AM EST) Narrative [facility] - 11/25/2024 11:00 AM EST This exam was performed in office at [facility] and images reviewed by orthopedic provider. ??Any findings are documented within ambulatory encounter note on date of service. Eladio HARDIN DIAGNOSTIC IMAGI NG ORDERABLES Performing Organization Address City/[facility] Co de Phone Number OA documented in this encounter Visit Diagnoses Not on filedocumented in this encounter Care Teams Systems Navigator Relationship Specialty Start Date End Date Ranjana Villarreal PA-C [address] [place] [address] PCP - General Internal Medicine 11/03/24 documented as of this encounter
--- OUTSIDE RECORDS SUMMARY | 2024-12-09 09:51 | XMS_ITS | Encounter Summary ---
Author Organization [facility] Address 100 [place] [address] Care Team Providers Care Systems Trainer Name Role Phone Ranjana Villarreal PA-C Primary Care Provi erika Encounter Details Date Type Department Care Team (Late st Contact Info) Description 11/25/2024 11:55 AM EST [facility] [address] [place] [address] Social History Tobacco Use Types Packs/Day Years [...] Info) Description 12/15/2024 3:00 PM EDT Consult [facility] Bone and Joint [place] 31 [facility] [address] [place] [address] Eladio Becker MD 7 [place] [address] Rebecca Angel APRN 31 [place] [address] 01/01/2025 1:00 PM EDT Office Visit [facility] 100 [facility] [address] [place] [address] Ranjana Villarreal PA-C 100 [place] [address] 01/22/2025 10:30 AM EDT Consult [facility] 113 [facility] 303 [place] [address] Dianne Mackay PA 113 [facility] 303 [place], [place] [address] documented as of this encounter Procedures Procedure Name Priority Date/Time Associated Diagnosis Comments XR KNEE 4+ VIEWS-BILATERAL Routine 11/25/2024 12:04 PM EST Pain in both knees, unspecified chronicity documented in this encounter Results * XR Knee 4+ views-Bilateral (11/25/2024 12:04 PM EST) Narrative OAH - 11/25/2024 12:04 PM EST This exam was performed in office at [facility] and images reviewed by orthopedic provider. ??Any findings are documented within ambulatory encounter note on date of service. Eladio Becker MD IMG DIAGNOSTIC IMAGI NG ORDERABLES [facility] documented in this encounter Visit Diagnoses Not on filedocumented in this encounter Care Teams Systems Trainer Relationship Specialty Start Date End Date Ranjana Villarreal PA-C [address] [place] [address] PCP - General Internal Medicine 11/03/24 documented as of this encounter
== END 2024-12-09 09:23 | disposition home or self-care (01) ==
LOC: HO.HPSW 08:57
PROVIDERS: PCP Physician Assistant Medical; Visit Provider Nurse Practitioner Family
DX: R06.09 Other forms of dyspnea (principal); R93.89 Abnormal findings on diagnostic imaging of other specified body structures; J47.9 Bronchiectasis, uncomplicated
CPT/HCPCS: 99214

== ENCOUNTER → 2024-12-09 08:57 | Outpatient (BNVA) | payer BC, SELFPAY | PROVIDERS: PCP Physician Assistant Medical; Visit Provider Nurse Practitioner Family ==

== ENCOUNTER 2024-12-09 10:00 | Outpatient (REF) | payer BC, SELFPAY ==
--- OUTSIDE RECORDS SUMMARY | 2024-12-09 11:39 | XMS_ITS | Encounter Summary ---
Author Organization [facility] Address 100 [place] [address] Care Team Providers Care First Beater Name Role Phone Ranjana Villarreal PA-C Primary Care Provi erika Encounter Details Date Type Department Care Team (Late st Contact Info) Description 11/25/2024 10:45 AM EST [facility] [address] [place] [address] Social History Tobacco Use Types Packs/Day Years [...] Description 12/15/2024 3:00 PM EDT Consult [facility] Bone and Joint [place] [address] [facility] [address] [place] [address] Eladio Becker MD 7 [place] [address] Rebecca Angel APRN 31 [place] [address] 01/01/2025 1:00 PM EDT Office Visit [address] 101 [place] [address] Ranjana Villarreal PA-C 100 [place] [address] 01/22/2025 10:30 AM EDT Consult [facility] 113 [facility] 303 [place] [address] Dianne Mackay PA 113 [facility] 303 [place] [address] documented as of this encounter Procedures Procedure [...] performed in office at [facility] and images reviewed by orthopedic provider. ??Any findings are documented within ambulatory encounter note on date of service. Eladio Becker MD IMG DIAGNOSTIC IMAGI NG ORDERABLES OAH * XR Foot 3+ views-Left (11/25/2024 11:00 AM EST) Narrative [facility] - 11/25/2024 11:00 AM EST This exam was performed in office at [facility] and images reviewed by orthopedic provider. ??Any findings are documented within ambulatory encounter note on date of service. Eladio HARDIN DIAGNOSTIC IMAGI NG ORDERABLES Performing Organization Address City/[facility] Co de Phone Number OA documented in this encounter Visit Diagnoses Not on filedocumented in this encounter Care Teams First Beater Relationship Specialty Start Date End Date Ranjana Villarreal PA-C [address] [place] [address] PCP - General Internal Medicine 11/03/24 documented as of this encounter
--- OUTSIDE RECORDS SUMMARY | 2024-12-09 11:39 | XMS_ITS | Clinical Summary ---
Author Organization [facility] Address 100 [place] [address] Care Team Providers Care Steel Melter Name Role Phone Ranjana Vlilarreal PA-C Primary Care Provi erika Allergies Active [...] Active Continuous Glucose Sensor (Dexcom G6 Sensor) [facility] USE 1 SENSOR EVERY 10 DAYS 06/25/2024 Active Continuous Glucose Transmitter (Dexcom G6 Transmitter) [facility] 1 DEVICE BY DOES NOT APPLY ROUTE [...] Type Department Care Team Description 12/02/2024 Documentation [facility] Bone and Joint [place] 31 [facility] [address], [place] [address] Rebecca Angel APRN 11/25/2024 11:55 AM EST [facility] [address] [address] 11/25/2024 10:45 AM EST [facility] [address] [address] 11/25/2024 10:00 AM EST Consult [facility] [address] [address] Eladio Becker MD Pain in both knees, unspecified chronicity (Primary Dx); Pain in left ankle and joints of left foot; Morbid obesity (HCC) 11/20/2024 Scanned Document [address] [address] Primary Care, Scan 11/04/[address] 101 [place] [address] Ranjana Villarreal PA-C 11/03/2024 3:15 PM EST Office Visit [address] 101 [place] [address] Ranjana Villarreal PA-C Charcot's arthropathy (Primary Dx); Gastroesophageal reflux disease without esophagitis; Primary hypertension; Type 2 diabetes mellitus with diabetic neuropathic arthropathy, with long-term current use of insulin (HCC); Other hyperlipidemia; Recurrent major depressive disorder, in partial remission; Amos's esophagus without dysplasia; Essential tremor; Dyslipidemia; Carotid artery stenosis without cerebral infarction, bilateral 11/03/2024 Travel 10/27/2024 Transcribe Orders [facility] 30 [place] [id number] Unknown Full incontinence of feces (Primary Dx) [...] Info) Description 12/15/2024 3:00 PM EDT Consult [facility] Bone and Joint [place] 31 [facility] [address], [place] [address] Eladio Becker MD 7 [place] [address] Rebecca Angel APRN 31 [place] [address] 01/01/2025 1:00 PM EDT Office Visit [facility] 100 [facility] 101 [place] [phone] Ranjana Villarreal PA-C 100 [place] [address] 01/22/2025 10:30 AM EDT Consult [facility] [address] [phone] Dianne Mackay PA [address] [address] Health Maintenance Due Date Last Done Comments [...] was performed in office at [facility] and images reviewed by orthopedic provider. ??Any findings are documented within ambulatory encounter note on date of service. Eladio DOUGLASG DIAGNOSTIC IMAGI NG ORDERABLES Performing Organization Address [facility] de Phone Number OAH * XR Foot 3+ views-Left (11/25/2024 11:00 AM EST) Narrative [facility] - 11/25/2024 11:00 AM EST This exam was performed in office at [facility] and images reviewed by orthopedic provider. ??Any findings are documented within ambulatory encounter note on date of service. Eladio DOUGLASG DIAGNOSTIC IMAGI NG ORDERABLES Performing Organization Address [facility] de Phone Number OAH * XR Ankle 2 views-Left (11/25/2024 11:00 AM EST) Narrative [facility] - 11/25/2024 11:00 AM EST [facility] by [facility] provider. ??Any findings are documented within ambulatory encounter note on date of service. Eladio HARDIN DIAGNOSTIC IMAGI NG ORDERABLES Performing Organization Address [facility] de Phone Number OA * (ABNORMAL) Hemoglobin A1c with Estimated Average Glucose (01/07/2024 4:32 AM EDT) Hemoglobin A1C 7.3(H) <5.7 % 01/07/2024 5:20 AM EDT Comment: A1c% ? Interpretation 5.7 - 6.0 ?Increase risk of diabetes 6.1 - 6.4 ?Higher risk of diabetes > or = 6.5 ?? Consistent with diabetes Diabetes Care, 33(Supp 1):S1-S61, 2010 Estimated Average Glucose 163 mg/dL 01/07/2024 5:20 AM EDT Blood specimen (specimen) Blood specimen / Unknown 01/07/2024 4:32 AM EDT 01/07/2024 4:37 AM EDT Nas Garcia MD [place] [address], [place] [address] * (ABNORMAL) Basic Metabolic Panel (01/07/2024 4:32 AM EDT) Glucose 181(H) 65 - 99 mg/dL 01/07/2024 5:19 AM [facility] Comment:Fasting: <100 mg/dL, Non-Fasting: <200 mg/dL (ADA 2004) Blood Urea Nitrogen (BUN) 25(H) 8 - 21 mg/dL 01/07/2024 5:19 AM [facility] Creatinine 1.4(H) 0.4 - 1.1 mg/dL 01/07/2024 5:19 AM [facility] eGFR 44(L) >59 01/07/2024 5:19 AM [facility] Comment:CKD-EPI (2020) in mL /min/1.73 sq meters. Sodium 138 136 - 145 mmol/L 01/07/2024 5:19 AM [facility] Potassium 4.1 3.4 - 5.3 mmol/L 01/07/2024 5:19 AM [facility] Chloride 106 98 - 107 mmol/L 01/07/2024 5:19 AM [facility] CO2 24 22 - 33 mmol/L 01/07/2024 5:19 AM [facility] Anion Gap 8 7 - 17 01/07/2024 5:19 AM [facility] Calcium 9.0 8.7 - 10.5 mg/dL 01/07/2024 5:19 AM [facility] BUN/Creatinine Ratio 18 10.0 - 25.0 Ratio 01/07/2024 5:19 AM [facility] Blood specimen (specimen) (Plasma/Serum) 01/07/2024 4:32 AM EDT 01/07/2024 4:37 AM EDT Nas Garcia MD [place] [address], [address] [place] [address] from Last 3 Months or Most Recently Relevant to Health Maintenance Advance Directives * Full Code (Latest Code Status on File) Date Activated Date Inactivated Comments 01/06/2024 5:40 PM Question Answer Comments Decision Thoroughly Discussed with: Patient * Full Code Date Activated Date Inactivated Comments 08/30/2023 12:10 PM 01/06/2024 2:18 PM Full Code Care Teams Steel Melter Relationship Specialty Start Date End Date Ranjana Villarreal PA-C [address] [place] [place] [address] PCP - General Internal Medicine 11/03/24
--- OUTSIDE RECORDS SUMMARY | 2024-12-09 11:39 | XMS_ITS | Encounter Summary ---
Author Organization [facility] Address [address] [place] [address] Care Team Providers Care Supervisory Cbp Officer Name Role Phone Ranjana Villarreal PA-C Primary Care Provi erika Encounter Details Date Type Department Care Team (Late st Contact Info) Description 11/20/2024 Scanned Document [address] [place] [address] Primary Care, Scan Social History [...] Info) Description 12/15/2024 3:00 PM EDT Consult [facility] [place] 31 [facility] [address] [place] [address] Eladio Becker MD [address] [phone] Rebecca Angel APRN [address] [place] [address] 01/01/2025 1:00 PM EDT Office Visit [facility] 100 [facility] 101 [place] [address] Ranjana Villarreal PA-C [address] [place] [address] 01/22/2025 10:30 AM EDT Consult [facility] 113 [facility] 303 [place] [phone] Dianne Mackay PA 113 [facility] 303 [place] [address] documented as of this encounter Visit Diagnoses Not on filedocumented in this encounter Care Teams Supervisory Cbp Officer Relationship Specialty Start Date End Date Ranjana Villarreal PA-C [address] [place] [address] PCP - General Internal Medicine 11/03/24 documented as of this encounter
--- OUTSIDE RECORDS SUMMARY | 2024-12-09 11:39 | XMS_ITS | Clinical Summary ---
Author Organization [facility] Address [address] [place] [address] Care Team Providers Care Part Time Name Role Phone Unavailable Primary Care Provider [...] Mathis Personal/Family Self 1965 A [address] [place] [address]
--- OUTSIDE RECORDS SUMMARY | 2024-12-09 11:39 | XMS_ITS | Encounter Summary ---
Author Organization [facility] Address [address] [place] [address] Care Team Providers Care Health Analytics Consultant Name Role Phone Ranjana Villarreal PA-C Primary Care Provi erika Reason for Referral * Diagnostic Imaging (Routine) - Authorized Specialty Diagnoses / Procedures Referred By Contac t Referred To Contact Diagnoses Pain in left ankle and joints of left foot Procedures CT Ankle w/o contrast-Left Eladio Becker MD [address] [place] [address] [facility] Referral ID Status Reason Start Date Expiration Date V isits Requested Visits Authorized [id number] Authorized 11/28/2024 11/29/2025 1 1 * Orthopedic (Routine) - Pending Review Specialty Diagnoses / Procedures Referred By Contac t Referred To Contact Surgery, Orthopedic / Orthopedic Surgery Diagnoses Morbid obesity (HCC) Eladio Becker MD 7 [place] [address] [employer] [address] [place] [phone] Referral ID Status Reason Start Date Expiration Date Visits Requested Visits Authorized [id number] Pending Review Consult 11/25/2024 11/26/2025 1 1 Comments Weight loss nutrition Reason for Visit * Reason Comments New Patient Follow-up * Orthopedic (Routine) - Closed Specialty Diagnoses / Procedures Referred By Sarah yap Referred To Contact Surgery, Orthopedic Diagnoses Charcot's arthropathy Ranjana Villarreal PA-C [address] [place] [address] Eladio Becker MD [address] [place] [address] Referral ID Status Reason Start Date Expiration Date V isits Requested Visits Authorized [id number] Closed Second Opinion 11/03/2024 11/04/2025 1 1 Encounter Details Date Type Department Care Team ([facility] st Contact Info) Description 11/25/2024 10:00 AM EST Consult [facility] [place] [address] Eladio Becker MD [address] [place] [address] Pain in both knees, unspecified chronicity (Primary [...] from the original note were not included. [address] [facility] [address] [place] [phone] Encounter Date: 11/25/2024 1. Pain in both [...] alignment and include knee x-rays, referralto Dr. Ryenolds for evaluation and management of knee pain. [...] were ineffective. She was initially evaluated at [facility] then [facility]. The patient underwent surgery with Dr. Almanzar, [...] for R foot ulcer. She sees a doctor of podiatry for her toenails. She is unable to [...] she is limited in activities with a xsom-abjr-kpe granddaughter. The patient is frustrated with the [...] Rfl: Continuous Glucose Sensor (Dexcom G6 Sensor) [facility] USE 1 SENSOR EVERY 10 DAYS, Disp: , Rfl: Continuous Glucose Transmitter (Dexcom G6 Transmitter) [facility] [place] 1 DEVICE BY DOES NOT APPLY [...] BASAGLAR KWIKPEN,) 100 units/mL prefilled pen injection, Yapllf08 Units under the skin nightly., Disp: , [...] Description 12/15/2024 3:00 PM EDT Consult [facility] [place] 31 [facility] [address] [address] Eladio Becker MD 7 [place] [address] Rebecca Angel APRN 31 [place] [address] 01/01/2025 1:00 PM EDT Office Visit [address] [address] Ranjana Villarreal PA-C 100 [place] [address] 01/22/2025 10:30 AM EDT Consult [facility] [address] [phone] Dianne Mackay PA [address] [address] Scheduled Orders Name Type Priority Associated Diagnoses [...] 4+ views-Bilateral (11/25/2024 12:04 PM EST) Narrative [facility] - 11/25/2024 12:04 PM EST [facility] and images reviewed by orthopedic provider. ??Any findings are documented within ambulatory encounter note on date of service. Eladio HARDIN DIAGNOSTIC IMAGI NG ORDERABLES Performing Organization Address [facility] de Phone Number OA * XR Ankle 2 views-Left (11/25/2024 11:00 AM EST) Narrative [facility] - 11/25/2024 11:00 AM EST This exam was performed [facility] and images reviewed by orthopedic provider. ??Any findings are documented within ambulatory encounter note on date of service. Eladio HARDIN DIAGNOSTIC IMAGI NG ORDERABLES Performing Organization Address [facility] de Phone Number OA * XR Foot 3+ views-Left (11/25/2024 11:00 AM EST) Narrative [facility] - 11/25/2024 11:00 AM EST This exam was performed [facility] and images reviewed by orthopedic provider. ??Any findings are documented within ambulatory encounter note on date of service. Eladio HARDIN DIAGNOSTIC IMAGI NG ORDERABLES Performing Organization Address [facility] de Phone Number [facility] documented in this encounter Visit Diagnoses Diagnosis Pain in both knees, unspecified chronicity- Primary Pain in left ankle and joints of left foot Morbid obesity (HCC) Morbid obesity documented in this encounter Care Teams Health Analytics Consultant Relationship Specialty Start Date End Date Ranjana Villarreal PA-C [address] [place] [address] PCP - General Internal Medicine 11/03/24 documented as of this encounter
--- OUTSIDE RECORDS SUMMARY | 2024-12-09 11:40 | XMS_ITS | Encounter Summary ---
Author Organization [facility] Address [address] [place] [address] Care Team Providers Care Farmworker Cranberry Name Role Phone Ranjana Villarreal PA-C Primary Care Provi erika Encounter Details Date Type Department Care Team (Late st Contact Info) Description 12/02/2024 Documentation [facility] [place] 31 [facility] [address] [phone] Rebecca Angel APRN 31 [place] [address] Social History Tobacco Use Types Packs/Day Years [...] Upcoming Encounters Date Type Department Care Team ([facility] st Contact Info) Description 12/15/2024 3:00 PM EDT Consult [facility] [place] 31 [facility] [address] [address] Eladio Becker MD [address] [phone] Rebecca Angel APRN 31 [place] [address] 01/01/2025 1:00 PM EDT Office Visit [facility] 100 [facility] 101 [place] [address] Ranjana Villarreal PA-C 100 [place] [address] 01/22/2025 10:30 AM EDT Consult [facility] 113 [facility] 303 [place] [phone] Dianne Mackay PA 113 [facility] 303 [place] [address] documented as of this encounter Visit Diagnoses Not on filedocumented in this encounter Care Teams Farmworker Cranberry Relationship Specialty Start Date End Date Ranjana Villarreal PA-C [address] [place] [address] PCP - General Internal Medicine 11/03/24 documented as of this encounter
--- OUTSIDE RECORDS SUMMARY | 2024-12-09 11:40 | XMS_ITS | Clinical Summary ---
Author Organization [facility] Address [address] [place] [address] Care Team Providers Care Millinery Designer Name Role Phone Unavailable Primary Care Provider [...]
--- OUTSIDE RECORDS SUMMARY | 2024-12-09 11:40 | XMS_ITS | Encounter Summary ---
Author Organization [facility] Address [address] [place] [address] Care Team Providers Care Hazmat Cdl Driver Name Role Phone Ranjana Villarreal PA-C Primary Care Provi erika Encounter Details Date Type Department Care Team (Late st Contact Info) Description 11/25/2024 11:55 AM EST Ancillary Procedure [facility] [address] [place] [address] Social History Tobacco Use Types Packs/Day Years [...] Description 12/15/2024 3:00 PM EDT Consult [facility] [place] 31 [facility] [address] [place] [address] Eladio Becker MD 7 [place] [address] Rebecca Angel APRN [address] [place] [address] 01/01/2025 1:00 PM EDT Office Visit [facility] 100 [facility] [address] [place] [address] Ranjana Villarreal PA-C [address] [place] [address] 01/22/2025 10:30 AM EDT Consult [facility] 113 [facility] [address] [place] [phone] Dianne Mackay PA 113 [facility] 303 [place], [place] [address] documented as of this encounter Procedures Procedure Name Priority Date/Time Associated Diagnosis Comments XR KNEE 4+ VIEWS-BILATERAL Routine 11/25/2024 12:04 PM EST Pain in both knees, unspecified chronicity documented in this encounter Results * XR Knee 4+ views-Bilateral (11/25/2024 12:04 PM EST) Narrative [facility] - 11/25/2024 12:04 PM EST This exam was performed in office at [facility] and images reviewed by orthopedic provider. ??Any findings are documented within ambulatory encounter note on date of service. Eladio Becker MD IMG DIAGNOSTIC IMAGI NG ORDERABLES [facility] documented in this encounter Visit Diagnoses Not on filedocumented in this encounter Care Teams Hazmat Cdl Driver Relationship Specialty Start Date End Date Ranjana Villarreal PA-C [address] [place] [address] PCP - General Internal Medicine 11/03/24 documented as of this encounter
--- OUTSIDE RECORDS SUMMARY | 2024-12-09 11:40 | XMS_ITS | Clinical Summary ---
Author Organization [facility] Address [address] [place] [address] Phone Care Team Providers Care Infection Control Specialist Name Role Phone Joel Alegria NP Primary Care Provider [phone] Immunizations Name Administration Dates Next Due Moderna SARS-CoV-2 COVID-19, mRNA, LNP-S, preservative free 12/29/2020,12/01/2020 Surgical History Surgery Date Site/Laterality Comments CHOLECYSTECTOMY 2000 PROCEDURE: HISTORICAL CHOLECYSTECTOMY ENDOMETRIAL ABLATION PROCEDURE: [place] ENDOMETRIAL ABLTJ THERMAL W/O HYSTEROSCOPIC GUID; COMMENT: done twice OTHER SURGICAL HISTORY PROCEDURE: ---- OTHER ----; COMMENT: skin graft for diabetic ulcer SECTION 03/1997 PROCEDURE: HISTORICAL DELIVERY COLONOSCOPY 06/18/2009 PROCEDURE: HISTORICAL COLONOSCOPY; COMMENT: Normal to cecum, repeat 10 years (small grade 2 internal hemorrhoids) UPPER GASTROINTESTINAL ENDOSCOPY 11/26/2001 PROCEDURE: UPPER GI ENDOSCOPY/EXAM; COMMENT: Normal, iron deficiency anemia most likely r/t a property management 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 OTHER SURGICAL HISTORY 2004 PROCEDURE: HISTORICAL [...] ED evaluation 06/29/18, referred to Dr. Ewing, [facility] wound care Managed with IV abx [...] left wrist Amos's esophagus 03/23/2022 DX:Amos's esophagus [facility] Johns grade A esophagitis 03/23/2022 DX:[facility] grade A esophagitis Diabetes mellitus ([facility]) DX:D iabetes mellitus (HCC) Hypertension DX:Hypertension Hypercholesterolemia DX:Hypercho lesterolemia Anxiety DX:Anxiety GERD (gastroesophageal reflux disease) DX:GERD (gastroesophageal reflux disease) Family History Medical History Relation Name Comments Other: Graves Disease Brother Heart failure Maternal Grandfather Stroke Other cancer Maternal Grandmother Liver Breast cancer Mother Heart failure Paternal Grandfather [place], Hy pertension Other cancer Paternal Grandmother Kidney [...] Signed Date: 08/05/2024 08:54 ET Workstation ID: [id number] Transcribed By: Self Edit Transcribed Date: 08/05/2024 [...] Signed Date: 08/05/2024 08:54 ET Workstation ID: [id number] Transcribed By: Self Edit Transcribed Date: 08/05/2024 08:44 ET us Self Referral Sppl IMG BI PROCEDURES Final Resul t from Last 3 Months or Most Recently Relevant to Health Maintenance [place] [address] [place] [address] ([facility]) Care Teams Infection Control Specialist Relationship Specialty Start Date End Date Joel Alegria NP [address] [place], [place] PCP - General Family Medicine 08/01/24
--- OUTSIDE RECORDS SUMMARY | 2024-12-09 11:40 | XMS_ITS | Continuity of Care Document ---
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 06/30/2024 Baqsimi One Vbiq1aj/Dose Powder spray into nostril as needed for low sugar reaction 1units Susan Bui M.D. 02/14/2024 Lantus Xtmwkikl019Mkzg/ML Solution Pen-Inject inject 50 units daily as directed 45ml E11.42 Susan Bui M.D. 10/26/2023 Dexcom G6 TransmitterMisc To Use With Sensors DX E11.42 1units Susan Bui M.D. Flnlvbhss32ai Tablets Take 1 Tablet By Mouth Every Day For 30 Days Lynnette Cardona MD Atorvastatin Djivinr62xs Tablets 1 by mouth every day Unknown Amlodipine Wzjdxlwj0wg Tablets Take 1 Tablet (5 MG Total) By Mouth Daily. Unknown Repatha Lszrpqarx455ob/ml Solution Auto-Inject inject 1 syringe under the skin every 2 weeks Unknown Aspirin 8181mg Tablets DR 1 by mouth every day Susan Bui M.D. Hydroxyzine FLX22ea Tablets Take 1 Tablet By Mouth Every Day as Needed Unknown Dexcom G6 SensorMisc use 1 sensor every 10 days 9units E11.42 Susan Bui M.D. Dexcom G6 SensorMisc Please See Attached For Detailed Directions Unknown Kmpoxavzlq282gn Capsules Take 2 Capsule By Mouth Three Times A Day Unknown Pantoprazole Maktop23tk Tablets DR Take 1 Tablet By Mouth Every Morning (Before Breakfast) For 360 Days. Unknown Albuterol Sulfate WVW544(90Base) mcg/Act Aerosol Take 2 Puffs By Mouth Every 4 Hours as Needed For Wheeze Unknown Ipratropium Bromide0.06% Solution Administer 2 Sprays Into Each Nostril Every 6 Hours as Needed For Rhinitis. Unknown Wbjgiivftr36rp Tablets Take 1 Tablet By Mouth Every Day Unknown Hyoscyamine Sulfate0.125mg Tablets Take 1 Tablet By Mouth 4 Times Daily as Needed For Cramping Or Diarrhea For Up T Unknown Basaglar Qpqluyb965Jvis/ML Solution Pen-Inject Inject 55 Units Into The Skin AT Bedtime 60ml E11.42 Susan Bui M.D. Trazodone XCX380ii Tablets Take 1 Tablet By Mouth Everyday [...] Inhouse Hemoglobin A1c 6.9% Gad65 Autoantibodies 08/15/2023 [facility] Gad65 Autoantibodies <5.0 1 Islet Cell Antibody 512 08/15/2023 [facility] Islet Cell Antibody 512 <7.5 2 Insulin Antibody 08/15/2023 [facility] Insulin Antibody 12 High 3 1 Reference range: 0.0 to 5.0 Unit: U/mL Test performed at [address] [address] 2 Unit: U/mL (NOTE) Reference Range: <7.5 Negative > or EQ 7.5 Positive Test performed by [facility], [address] [place] [address] 3 Unit: uU/mL (NOTE) This test is also known as insulin autoantibody or IAA. This test was developed and its performance characteristics determined by [facility]. It has not been cleared or approved by the Food and Drug Administration. Reference Range: <5.0 Negative > or EQ 5.0 Positive Test performed by [facility], [address] [facility], [place] [address] Procedures Date Code Description Status 08/10/2023 21293 Collection Of Venous Blood B y Venipuncture [...] Chip Brannon MD POSSIBLE SEIZURES Closed [address] [facility] [address] [place] [address] [phone]
[2024-12-09 11:44] LABS: MANUAL DIFF FLAG NO
[2024-12-09 11:50] LABS: Basophils Absolute Auto 0.1 X10*3/uL (0.0-0.2); Basophils Percent Auto 0.6 % (0-2); Eosinophils Absolute Auto 0.4 X10*3/uL (0.0-0.4); Eosinophils Percent Auto 4.6 % (0-4); Hematocrit 35.3 % (37.0-47.0); Hemoglobin 11.3 g/dl (12.0-16.0); Imm Gran Abs Auto 0.04 X10*3/uL (0.00-0.03); Imm Gran Pct Auto 0.4 % (0.0-0.4); Mean Corpuscular Hemoglobin 27.3 pg (27.0-33.0); Mean Corpuscular Volume 85.3 fL (80.0-98.0); Mean Platelet Volume 9.4 fL (9.4-12.3); Monocytes Absolute Auto 0.5 X10*3/uL (0.1-1.2); Monocytes Percent Auto 5.1 % (2-11); Neutrophils Absolute Auto 6.1 x10*3/uL (2.0-8.3); Neutrophils Percent Auto 67.3 % (45-73); Platelet Count 284 X10*3/uL (160-400); Red Blood Count 4.14 X10*6/uL (4.20-5.50)
[2024-12-09 12:45] LABS: Anion Gap 13 (12-20); Blood Urea Nitrogen 24 mg/dL (9-16); Calcium 9.5 mg/dL (8.4-10.2); Carbon Dioxide 25 mmol/L (22-29); Chloride 109 mmol/L (96-108); Estimated Glomerular Filt Rate 29; Glucose Random 141 mg/dL (60-115); Potassium 5.2 mmol/L (3.3-5.1); Sodium 142 mmol/L (135-145)
== END 2024-12-09 10:01 | disposition home or self-care (01) ==
LOC: HO.WFDLDS 10:00
PROVIDERS: Visit Provider Internal Medicine Hypertension Specialist
DX: R06.09 Other forms of dyspnea (principal); N18.9 Chronic kidney disease, unspecified; D64.9 Anemia, unspecified
CPT/HCPCS: 36415; 80048; 85025

== ENCOUNTER 2024-12-24 15:47 | Outpatient (AMB) | payer BC, SELFPAY ==
[2024-12-24 15:53] VITALS: BP 148/88; PULSE 94; O2SAT 99; BMI 48.3
--- NOTE | 2024-12-24 15:53 | HO.NEPHOV ---
Vital Signs 12/24/24 15:53 Height 5 ft 5 in Weight 290 lb BMI 48.3 BP 148/88 H Blood Pressure Location Rt radial Position Sitting Pulse 94 Pulse Source Pulse Oximeter Pulse Oximetry (%) 99 Oxygen Delivery Method Room Air Intake Visit Reasons: 4mon follow up/ Conf Laboratory Apparatus Glass Grinder Required: No Accompanied by: Self / Same As Patient Allergies metformin Adverse Reaction (Verified 12/24/24 15:54) diarrhea and vomiting Medication List - Last Reconciled 12/24/24 by Abhijit Ramires MD acetaminophen ER 650 mg PO Q12H PRN albuterol sulfate 90 mcg/actuation 2 puffs inhalation Q4-6H PRN amlodipine 5 mg PO DAILY aspirin 81 mg PO DAILY atorvastatin 80 mg PO DAILY blood-glucose sensor ([employer] G6 Sensor device) As directed blood-glucose transmitter ([employer] G6 Transmitter device) As directed budesonide-formoterol 160-4.5 mcg/actuation (Symbicort) 2 puffs inhalation Q12H bupropion HCl XL 300 mg PO DAILY estradiol 0.01%(0.1mg/gram) 2 grams vaginal DAILY 90 days evolocumab (Repatha SureClick) 140 mg subcut Q2W 90 days fluticasone propionate 50 mcg/actuation (Flonase Allergy Relief) 1 spray intranasal DAILY gabapentin 300 mg PO TID hydroxyzine HCl 10 mg PO DAILY PRN insulin aspart (niacinamide) 100 unit/mL (3 mL) (Fiasp FlexTouch U-100 Insulin) 10 units subcut TID insulin glargine (Basaglar KwikPen U-100 Insulin) 50 units subcut QPM ipratropium bromide 2 sprays intranasal BID ipratropium-albuterol 0.5 mg-3 mg(2.5 mg base)/3 mL 3 mL inhalation Q6H PRN lisinopril 10 mg See Protocol PO DAILY naltrexone 25 mg PO DAILY pantoprazole 40 mg (2 x 20 mg) PO DAILY@0630 60 days polyethylene glycol 3350 (Miralax) 17 grams PO DAILY 30 days primidone mg PO DAILY trazodone mg PO HPI Comments Details: Ewelina is a pleasant 59 year woman with a history of longstanding diabetes mellitus. She has been referred for evaluation of CKD. Baseline creatinine is around 1.0-1.2 mg/dL about a year ago. In March of 2024 she was prescribed Ozempic. After few doses she was sick and she was having vomiting. She was hospitalized and received IV hydration. In March creatinine peaked to 2.2 mg/dL. Creatinine has been staying around 1.6 mg/dL for the last 3 months and she has been for further evaluation. She has had recurrent UTIs. The recent abdominal ultrasonogram showed unremarkable kidneys without any hydronephrosis. She has a history of occipital neuralgia. History of flu significant obesity in the hypertension. History of Charcot joint 07/23/24 Doing well Still has urinary symptoms and feels she might have UTI 12/24/24. Doing better Gained weight BP elevated ; EAts popcorn everyday No further UTI PFSH Medical History Carotid stenosis, bilateral Elevated serum GGT level Atherosclerotic cardiovascular disease Non-ST elevation CO (NSTEMI) Action tremor Chronic headaches GERD (gastroesophageal reflux disease) Hyperlipidemia Depression Pneumonia Sepsis Barretts esophagus Dyslipidemia HTN (hypertension) Charcot's joint of foot Diabetes Surgical History History of esophagogastroduodenoscopy (EGD) Hx of colonoscopy H/O foot surgery Hx of cholecystectomy H/O: hysterectomy Family History Son Substance use disorder Father Substance use disorder Mother Substance use disorder Family/Other Substance use disorder Maternal Grandfather Heart problem Maternal Uncle Heart problem Paternal Grandmother Heart problem Sister Heart problem Social History Household Members: None Housing: Condominium Do you presently have visiting nurse or other home services: No Alcohol intake: never Patient Tobacco Use Status: Never used Tobacco e-Cigarette/Vaping Use: Never Used Second Hand Smoke Exposure: No Advance Directives Date on File: 07/25/23 service: No Current occupational status: employed 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 Current occupational exposures/hazards: No Cognitive needs: No Hearing needs: No Vision needs: No Physical Exam Vital Signs: Last Vital Signs Pulse 94 12/24/24 15:53 BP 148/88 H 12/24/24 15:53 Pulse Ox 99 12/24/24 15:53 Oxygen Delivery Method Room Air 12/24/24 15:53 BMI result Body Mass Index 48.3 Const Other: Obese General: comfortable; No acute distress Orientation/consciousness: patient oriented x3 Eyes General: appearance normal, both eyes and all related structures Visual Murdock: normal visual murdock by confrontation Neck Neck: Yes supple and Yes no JVD Resp Effort & Inspection: normal respiratory effort and respiratory effort not decreased Auscultation: rhonchi Cardio Palpation: no palpable S3 and no palpable S4 Heart sounds: no rubs GI Inspection: Yes normal to inspection Palpation (GI): Soft to palpation Percussion: Yes normal to percussion Auscultation: normal bowel sounds General: Yes no CVA tenderness Back/Spine/Pelvis Back: no CVA tenderness Skin General skin exam: no petechiae and no purpura Neuro General: patient oriented x3 and no focal motor deficits Extrem General: No clubbing and No edema Results Reviewed Nephrology Results: Hgb 11.3 g/dl (12.0-16.0) L 12/09/24 WBC 9.0 X10*3/uL (4.8-10.8) 12/09/24 Plt Count 284 X10*3/uL (160-400) 12/09/24 Sodium 142 mmol/L (135-145) 12/09/24 Potassium 5.2 mmol/L (3.3-5.1) H 12/09/24 Chloride 109 mmol/L (96-108) H 12/09/24 Carbon Dioxide 25 mmol/L (22-29) 12/09/24 BUN 24 mg/dL (9-16) H 12/09/24 Creatinine 1.79 mg/dL (0.5-1.4) H 12/09/24 Calcium 9.5 mg/dL (8.4-10.2) 12/09/24 Assessment & Plan Assessment & Plan (1) CKD (chronic kidney disease): Code(s): N18.9 - Chronic kidney disease, unspecified Category: Medical (2) Obesity: Code(s): E66.9 - Obesity, unspecified Category: Medical (3) Anemia: Code(s): D64.9 - Anemia, unspecified Category: Medical Qualifiers: Anemia type: iron deficiency (4) Hyperkalemia: Code(s): E87.5 - Hyperkalemia Category: Medical (5) HTN (hypertension): Code(s): I10 - Essential (primary) hypertension Category: Medical Plan Ewelina is a pleasant 59 woman with CKD 3. Differential diagnosis would include diabetic nephropathy. She has significant proteinuria most likely due to diabetic nephropathy. Nondiabetic causes seem unlikely based on serologies Baseline creatinine is around 1.4 to 1.6 Based on recent imaging she has no evidence of obstructive uropathy. Mild hypokalemia in the setting of CKD. Hypertension blood pressure well controlled. Recommendation Keep on low-sodium diet. She should stay on low-potassium diet as well. I will continue the YARED inhibitor for renal protection. Maintain blood pressure less than 130/80 Will benefit from weight loss Maintain A1C < 7% Continue to avoid nephrotoxic agents including NSAIDs. Goal is to slow the progression of renal disease Unable to use SGLT-2 inhibitor due to h/o DKA BP sub optimal Add low dose HCTZ 12.5 mg and titrate dose. . . Orders: Orders Basic Metabolic Panel 6 Weeks N18.9 - Chronic kidney disease, unspecified Medications: New hydrochlorothiazide 12.5 mg PO DAILY 30 caps 3RF Coding Level of Care Code Est Pt Level 4 (18701) Diagnoses CKD (chronic kidney disease) N18.9 Obesity E66.9 Anemia D64.9 Anemia type: iron deficiency Hyperkalemia E87.5 HTN (hypertension) I10
== END 2024-12-24 16:18 | disposition home or self-care (01) ==
LOC: HO.HKAE 15:48
PROVIDERS: PCP Physician Assistant Medical; Visit Provider Internal Medicine Hypertension Specialist
DX: N18.9 Chronic kidney disease, unspecified (principal); E66.9 Obesity, unspecified; D64.9 Anemia, unspecified; E87.5 Hyperkalemia; I12.9 Hypertensive chronic kidney disease with stage 1 through stage 4 chronic kidney disease, or unspecified chronic kidney disease
CPT/HCPCS: 99214

== ENCOUNTER → 2024-12-24 15:47 | Outpatient (BNVA) | payer BC, SELFPAY | PROVIDERS: PCP Physician Assistant Medical; Visit Provider Internal Medicine Hypertension Specialist ==

== ENCOUNTER 2025-01-22 12:00 | Outpatient (REF) | payer BC, SELFPAY ==
--- NOTE | ~2025-01-22 | XR_ITS ---
EXAMINATION: XR CHEST 2 VIEWS HISTORY: R06.09 - Other forms of dyspnea COMPARISON: Comparison is made with the prior examination dated 08/10/2023. FINDINGS: PA and lateral views of the chest are submitted. There are low lung volumes. Minimal scarring is seen in the lingula. The lungs are otherwise clear. There is no pleural effusion, pneumothorax, or pulmonary vascular congestion. The heart is normal in size. The bones are intact. XR/XR chest 2V IMPRESSION: Low lung volumes. No acute cardiopulmonary abnormality. Electronically signed by: Cruz Blackburn MD 01/23/2025 03:33 PM EDT
[2025-01-22 13:14] LABS: Appearance Urine Cloudy; Color Urine Orange; Leukocyte Esterase Urine Small (1+) (Negative); Nitrite Urine Positive (Negative); PH 5.5 (5.0-9.0); Specific Gravity - Urine >= 1.030 (1.005-1.025); UMIC TRIGGER UACC YES
[2025-01-22 13:33] LABS: UACC Culture Trigger YES; WBC Urine >50 /HPF (0-5)
[2025-01-22 13:34] LABS: Bacteria Urine 4+ (None Seen); Hyaline Casts Urine 0-2 /LPF (0-2); RBC Urine 0-2 /HPF (0-2); Squamous Epithelial Cell Urine 0-2 /HPF (0-2); WBC Clumps Urine Present
--- OUTSIDE RECORDS SUMMARY | 2025-01-22 14:20 | XMS_ITS | Clinical Summary ---
Author Organization [facility] Address [address] [place] [address] Care Team Providers Care Supervisor [employer] Name Role Phone Britt Villarreal PA-C Primary Care Provi erika Allergies Active Allergy Reactions Criticality Noted Date Comments Ceftriaxone Rash/Dermatitis Low 06/13/2023 Metformin Diarrhea Low 01/06/2024 Medications lisinopril (PRINIVIL,ZeSTR IL) 10 MG tablet Take 1 tablet (10 [...] mouth 3 (three) times a day. Active insulin aspart (NovoLOG FlexPen) 100 UNIT/ML [...] FOR SHORTNESS OF BREATH OR FOR WHEEZE 4 Active ipratropium (ATROVENT) 0.03 % nasal spray USE 2 SPRAYS IN EACH NOSTIL TWICE DAILY 4 Active ipratropium-alb uterol (DUONEB) 0.5-2.5 mg/3 mL nebulizer solution 3 ML INHALED EVERY 6 HOURS NEEDED FOR WHEEZING 4 Active amLODIPine (NORVASC) 5 MG tabletIndicatio ns:Occipital neuralgia of left side Take 1 tablet (5 mg total) by mouth daily. 30 tablet 4 Active Continuous Glucose Sensor (Dexcom G6 Sensor) [facility] 1 SENSOR EVERY 10 DAYS 4 Active Continuous Glucose Transmitter (Dexcom G6 Transmitter) [facility] 1 DEVICE BY DOES NOT APPLY ROUTE SEE ADMIN INSTRUCTIONS. CHANGE TRANSMITTER EVERY 3 MONTHS. 4 Active primidone (MYSOLINE) 50 MG tablet Take 1 tablet (50 mg total) by mouth. 4 Active fluticasone-bennie meterol 100-50 mcg/inh diskus inhaler Inhale 1 puff 2 (two) times a day. Active estradiol (ESTRACE) 0.01 % vaginal cream APPLY PEA-SIZED AMOUNT TO URETHRA DAILY X 1 MONTH THEN THREE DAYS A WEEK THEREAFTER 5 Active hydroCHLOROthia zide (MICROZIDE) 12.5 MG capsule Take 1 capsule (12.5 mg total) by mouth. 5 Active naltrexone (REVIA) 50 MG tablet Take 1 tablet (50 mg total) by mouth daily. 5 Active PANTOprazole (PROTONIX) 40 MG EC tabletIndicatio ns:Amos's esophagus without dysplasia Take 1 tablet (40 mg total) by mouth daily. 90 tablet 3 5 Active PANTOprazole (PROTONIX) 20 MG tablet Take 2 tablets (40 mg total) by mouth daily. 025 Discontin ued(Alter terry therapy) traMADol 25 MG TabIndications: Occipital neuralgia of left side Take 25 mg by mouth 4 times daily (every 6 hours) as needed for severe pain. 10 tablet 4 025 Discontin ued(Med List Clean-up/ Old Med - No E-Cancel/ No AVS) Active Problems Problem Noted Date Diagnosed Date Full incontinence of feces 01/22/2025 Assessment & Plan (01/22/2025 11:16 AM EDT): Continue fiber supplementation Discussed increasing to BID dosing Will send pt for evaluation of biofeedback- Edu Cirilo. Gastric polyps 01/22/2025 Assessment & Plan (01/22/2025 11:18 AM EDT): Pt reporting gastric polyps seen on imaging No imaging for my review at time of visit Pt told likely benign Schedule EGD Colon cancer screening 01/22/2025 Assessment & Plan (01/22/2025 11:20 AM EDT): Per pt last colonoscopy 3 years ago and told 10 year follow up Will get records from prior GI Esophageal dysphagia 01/22/2025 Assessment & Plan (01/22/2025 11:20 AM EDT): ?dysmotility Prior barium swallow at other GI practice Will ask for records EGD per above Dyspnea due to COVID-19 01/01/2025 Primary insomnia 11/03/2024 History of COVID-19 11/03/2024 Tremor 11/03/2024 Gastroesophageal reflux disease without esophagi tis 11/03/2024 Assessment & Plan (01/22/2025 11:18 AM EDT): Controlled with pantoprazole daily, continue this. Avoid/limit tobacco, alcohol, chocolate, peppermint, caffeine, greasy foods, spicy foods, and acidic foods such as citrus and tomato. Eat smaller, more frequent meals, and do not eat within 2 hours of bedtime. If you have night-time symptoms, elevate the head of the bed 6 to 12 inches. Handout provided. Follow clinically. Primary hypertension 11/03/2024 Type 2 diabetes mellitus wit hout complication, with long-term current use of insulin 11/03/2024 IBS (irritable bowel syndrome) 11/03/2024 Assessment & Plan (01/22/2025 11:19 AM EDT): Discussed high fiber diet Avoid food triggers Regular exercise, and sleep Continue fiber supplementation and increase to BID Diabetic neuropathy associat ed with type 2 [...] side 01/08/2024 Headache 01/06/2024 Amos's esophagus 08/10/2023 Assessment & Plan (01/22/2025 11:17 AM EDT): Dx 3 years ago at another practice, she is looking to switch practices She is due for EGD this March LSM / diet re GERD Continue pantoprazole daily. Discussed the increased risk of dysplasia and esophageal cancer associated with Amos's Esophagus. ETOH, obesity, smoking and GERD increase risk. Continue PPI to control acid and decrease risk of dysplastic cell formation. Routine surveillance and biopsy are recommended to monitor for dysplasia and cancer. Schedule EGD Charcot's arthropathy 08/10/2023 Essential tremor 08/10/2023 Dyslipidemia 08/10/2023 Resolved Problems Problem Noted Date Diagnosed Date Resolved Date Mixed anxiety depressive disorder 11/03/2024 11/03/2024 Sleep-disordered breathing 11/03/2024 0 11/03/2024 History of non-ST elevation myocardial infarction (NSTEMI) 08/10/2023 11/03/2024 Community acquired pneumonia 07/18/2023 11/03/2024 Orthostatic hypotension 07/18/2023 02/0 11/2024 Encounters Date Type Department Care Team Description 01/22/2025 10:30 AM EDT Consult [address] [place] [phone] Dianne Mackay PA Full incontinence of feces (Primary Dx); Amos's esophagus without dysplasia; Gastric polyps; Gastroesophageal reflux disease without esophagitis; Irritable bowel syndrome with both constipation and diarrhea; Colon cancer screening; Esophageal dysphagia 01/22/2025 Travel 01/01/2025 1:00 PM EDT Office Visit [address] [place] [phone] Britt Villarreal PA-C Morbid obesity (HCC) (Primary Dx); Snoring; Apnea; Dyspnea due to COVID-19; Primary hypertension 01/01/2025 Travel 12/29/2024 7:00 AM EDT Telemedicine Clinical Support [facility] [address] [place] [phone] Britt Villarreal PA-C Barrett, Christopher, RD Morbid obesity (HCC) (Primary Dx); Type 2 diabetes mellitus without complication, with long-term current use of insulin (HCC) 12/29/2024 Travel 12/25/2024 Scanned Document [facility] NEPHROLOGY SCAN Nephrology, Scan 12/15/2024 3:00 PM EDT Consult [facility] [place] [address], [place] [address] Eladio Becker MD Perez, Cristina, APRN Morbid obesity (HCC) (Primary Dx) 12/15/2024 Travel 12/09/2024 Scanned Document [facility] PULMONOLGY SCAN Pulmonary, Scan 12/02/[address], [place] [address] Rebecca Angel APRN 11/25/2024 11:55 AM EST Ancillary Procedure [facility] [address] [place] [address] 11/25/2024 10:45 AM EST Ancillary Procedure [facility] [address] [place] [address] 11/25/2024 10:00 AM EST Consult [facility] [address] [facility] [address] [place] [address] Eladio Becker MD Pain in both knees, unspecified chronicity (Primary Dx); Pain in left ankle and joints of left foot; Morbid obesity (HCC) 11/20/2024 Scanned Document [facility] [address] [place] [address] Primary Care, Scan 11/04/2024 Telephone [facility] [address] [place] [address] Britt Villarreal PA-C 11/03/2024 3:15 PM EST Office Visit [facility] [address] [place] [address] Britt Villarreal PA-C Charcot's arthropathy (Primary Dx); Gastroesophageal reflux disease without esophagitis; Primary hypertension; Type 2 diabetes mellitus with diabetic neuropathic arthropathy, with long-term current use of insulin (HCC); Other hyperlipidemia; Recurrent major depressive disorder, in partial remission; Amos's esophagus without dysplasia; Essential tremor; Dyslipidemia; Carotid artery stenosis without cerebral infarction, bilateral 11/03/2024 Travel 10/27/2024 Transcribe Orders [facility] [place] [address] Unknown Full incontinence of feces (Primary Dx) from Last 3 Months Social History Tobacco Use Types Packs/Day Years Used Date Smoking Tobacco: Never Smokeless Tobacco: Never Tobacco Cessation:Counseling Given: Not Answered Alcohol Use Standard Drinks/Week Comments Not Currently 0 (1 standard drink = 0.6 oz pure alcohol) Patient reported no comsumption of alcohol currently. OASIS D0700: Social Isolation Answer Da te [...] more drinks on one occasion? Never 01/06/2024 Comments Unknown Sex and Gender Information Value Date Recorded Sex Assigned at Female 01/06/2024 3:09 PM EDT Legal Sex Female 4:18 PM EDT Gender Identity Female 01/06/2024 3:09 PM EDT Sexual Orientation Choose not to disclose 2023 3:09 PM EDT Last Filed Vital Signs Vital Sign Reading Time Taken Comments Blood Pressure 122/78 01/22/2025 10:46 AM EDT Pulse 85 01/22/2025 10:46 AM EDT Temperature 36.3 ??C (97.3 ??F) 01/01/2025 1:01 PM ED T Respiratory Rate 17 01/01/2025 1:01 PM EDT Oxygen Saturation 96% 01/22/2025 10:46 AM EDT Inhaled Oxygen Concentration - - Weight 127 kg (281 lb) 01/22/2025 10:46 AM EDT Height 165.1 cm (5' 5 ) 01/22/2025 10:46 AM EDT Body Mass Index 46.76 01/22/2025 10:46 AM EDT Plan of Treatment Upcoming Encounters Date Type Department Care Team (Late st Contact Info) Description 01/28/2025 7:00 AM EDT Telemedicine Clinical Support [facility] [place] [facility] [address] [facility] 1st [place] [address] Britt Villarreal PA-C [address] [place] [address] Reji Amos, DILIP [address] [place], [place] [phone] 03/17/2025 4:15 PM EDT Telemedicine [facility] [place]Note 2] [facility] [place] [address] [facility] [address], [place] [address] Rebecca Angel FLIGHT FOLLOWER [address] [place] [address] 06/18/2025 11:20 AM EDT Consult [facility] [place] [address] [place] [address] Britt Villarreal PA-C [address] [place] [address] Maria D Hinojosa, FLIGHT FOLLOWER [address] [place] [address] 07/22/2025 9:30 AM EDT Office Visit [facility] [address] [place] [phone] Britt Villarreal PA-C [address] [place] [address] Health Maintenance Due Date Last Done Comments [...] Procedure Name Priority Date/Time Associated Diagnosis Comments CT ANKLE W/O CONTRAST-LEFT Routine 01/19/2025 8:08 AM EDT Pain in left ankle and joints of left foot XR KNEE 4+ VIEWS-BILATERAL Routine 11/25/2024 12:04 [...] Recently Relevant to Health Maintenance Results * CT Ankle w/o contrast-Left (01/19/2025 8:08 AM EDT) Anatomical Region Laterality Modality Ankle Left Computed Tomogra phy 01/19/2025 8:00 AM EDT 01/19/2025 8:00 AM EDT Impressions 01/19/2025 12:04 PM EDT 1. 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 2. No appreciable osseous bridging at the naviculocuneiform joints. Fractured retrograde intramedullary nail extending from the first metatarsal head through the talus. 3. Additional lbnu-jn-zeokbmmi multifocal osteoarthritis in the midfoot and hindfoot. 4. Achilles tendinosis. Electronically signed by: ??Isauro Perez MD ??01/19/2025 12:04 PM EDT Thank you for referring your patient to us, Isauro Perez MD [phone] (Electronically Signed - 01/19/2025 12:04) Copy: [facility] ESPINO [facility] [place] [address] [place] [address] PATIENT , ?? Narrative 01/19/2025 12:04 PM EDT EXAMINATION: CT ANKLE WITHOUT CONTRAST, LEFT CLINICAL INFORMATION: Pain in left ankle and joints of left foot M25.572. Evaluate nonunion versus malunion. COMPARISON: None available. TECHNIQUE: Multidetector volumetric images of the ankle were obtained without intravenous contrast. Multiplanar reformatted images in coronal, oblique, and sagittal orientations were submitted. A series of images with metal artifact reduction post-processing was submitted. This algorithm can introduce subtraction artifact around the hardware on the MAR images which should not be misinterpreted as osteolysis. Three dimensional volume rendered images were created on an independent workstation with concurrent physician supervision (per the [facility] policy and protocol). This CT examination was performed using dose optimization techniques as appropriate, variously including the following: *Automated exposure control *Adjustment of mA and/or kV according to patient size (this includes techniques or standardized protocols for targeted exams where dose is matched to indication/reason for exam; i.e. extremities or head) *Use of iterative reconstruction technique DLP: 272.52 mGy-cm FINDINGS: There is solid osseous bridging at the subtalar, talonavicular, and calcaneocuboid joints diffusely, status post prior triple arthrodesis. Retrograde partially- threaded screw at the subtalar joint posterior facet and the lateral plate and screw fixation construct at the calcaneocuboid joint are intact. There is a retrograde intramedullary nail extending from the first metatarsal head through the talus which is fractured around the interlocking screw extending transversely through the talar head. The interlocking screw is intact. There is no appreciable osseous bridging at the naviculocuneiform joints which are markedly degenerated, characterized by marked joint space narrowing, articular cortical irregularity, atherosclerosis, marginal osteophytes, and subcortical cystic change. This degeneration is more pronounced medially. There is solid osseous bridging across the first TMT joint and partial osseous bridging between the first and second metatarsal bases in this region. Additional osseous bridging is noted between the medial cuneiform and middle cuneiform. There is wgdq-av-fmnecspu multifocal osteoarthritis at the second through fifth TMT joints with joint space narrowing and marginal osteophytes. Rtyd-en-ahzgeexu osteoarthritis is present of the talocrural joint with nonuniform joint space narrowing, marginal osteophytes, and articular cortical irregularity. The Achilles tendon is thickened and heterogeneous at its midsubstance, most consistent with tendinosis. Interstitial partial tearing is possible. Tendons are otherwise not well assessed on these images. Moderate atrophy and fatty replacement of the intrinsic foot musculature. No effusions. Procedure Note Isauro Perez MD - 01/19/2025 EXAMINATION: CT ANKLE WITHOUT CONTRAST, LEFT CLINICAL INFORMATION: Pain in left ankle and joints of left foot M25.572. Evaluate nonunionversus malunion. COMPARISON: None available. TECHNIQUE: Multidetector volumetric images of the ankle were obtained withoutintravenous contrast. Multiplanar reformatted images in coronal, oblique,and sagittal orientations were submitted. A series of images with metalartifact reduction post-processing was submitted. This algorithm can introduce subtraction artifact around thehardware on the MAR images which should not be misinterpreted asosteolysis. Three dimensional volume rendered images were created on anindependent workstation with concurrent physician supervision (per the [facility] policy and protocol). This CT examination was performed using dose optimization techniques asappropriate, variously including the following: *Automated exposure control *Adjustment of mA and/or kV according to patient size (this includestechniques or standardized protocols for targeted exams where dose ismatched to indication/reason for exam; i.e. extremities or head) *Use of iterative reconstruction technique DLP: 272.52 mGy-cm FINDINGS: There is solid osseous bridging at the subtalar, talonavicular, andcalcaneocuboid joints diffusely, status post prior triple arthrodesis.Retrograde partially- threaded screw at the subtalar joint posterior facetand the lateral plate and screw fixation construct at the calcaneocuboid joint are intact. There is a retrogradeintramedullary nail extending from the first metatarsal head through thetalus which is fractured around the interlocking screw extendingtransversely through the talar head. The interlocking screw is intact. There is no appreciable osseous bridging at the naviculocuneiform jointswhich are markedly degenerated, characterized by marked joint spacenarrowing, articular cortical irregularity, atherosclerosis, marginalosteophytes, and subcortical cystic change. This degeneration is more pronounced medially. There is solid osseous bridging across the first TMT joint and partialosseous bridging between the first and second metatarsal bases in thisregion. Additional osseous bridging is noted between the medial cuneiformand middle cuneiform. There is dowh-tx-pxlaoamb multifocal osteoarthritis at the second throughfifth TMT joints with joint space narrowing and marginal osteophytes. Zybj-da-dbnxnlxq osteoarthritis is present of the talocrural joint withnonuniform joint space narrowing, marginal osteophytes, and articularcortical irregularity. The Achilles tendon is thickened and heterogeneous at its midsubstance,most consistent with tendinosis. Interstitial partial tearing is possible.Tendons are otherwise not well assessed on these images. Moderate atrophyand fatty replacement of the intrinsic foot musculature. No effusions. IMPRESSION: 1. Solid osseous bridging at the subtalar, talonavicular, andcalcaneocuboid joints status post triple arthrodesis. 2. No appreciable osseous bridging at the naviculocuneiform joints.Fractured retrograde intramedullary nail extending from the firstmetatarsal head through the talus. 3. Additional nshy-ae-rfhwvdnr multifocal osteoarthritis in the midfootand hindfoot. 4. Achilles tendinosis. Electronically signed by: Isauro Perez MD 01/19/2025 12:04 PM EDT RPWorkstation: [id number] Thank you for referring your patient to us, Isauro Perez MD [phone] (Electronically Signed - 01/19/2025 12:04) Copy: [facility] [address] [place] [address] PATIENT , us Eladio Becker MD G CT ORDERABLES Final Resul t * XR Knee 4+ views-Bilateral (11/25/2024 12:04 PM EST) Narrative [facility] - 11/25/2024 12:04 PM EST This exam was performed in office at [facility] and images reviewed by orthopedic provider. ??Any findings are documented within ambulatory encounter note on date of service. Eladio [facility] ORDERA BLES Final Result Performing Organization Address [facility] de Phone Number OAH * XR Foot 3+ views-Left (11/25/2024 11:00 AM EST) Narrative [facility] - 11/25/2024 11:00 AM EST [facility] and images reviewed by orthopedic provider. ??Any findings are documented within ambulatory encounter note on date of service. Eladio [facility] ORDERA BLES Final Result Performing Organization Address [facility] de Phone Number OAH * XR Ankle 2 views-Left (11/25/2024 11:00 AM EST) Narrative [facility] - 11/25/2024 11:00 AM EST [facility] and images reviewed by orthopedic provider. ??Any findings are documented within ambulatory encounter note on date of service. Eladio Becker MD [facility] ORDERA BLES Final Result Performing Organization Address [facility] de Phone Number [facility] * (ABNORMAL) Hemoglobin A1c with Estimated Average Glucose (01/07/2024 4:32 AM EDT) Hemoglobin A1C 7.3(H) <5.7 % 01/07/2024 5:20 AM EDT [facility] Comment: A1c% ? Interpretation 5.7 - 6.0 ?Increase risk of diabetes 6.1 - 6.4 ?Higher risk of diabetes > or = 6.5 ?? Consistent with diabetes Diabetes Care, 33(Supp 1):S1-S61, 2009 Estimated Average Glucose 163 mg/dL 01/07/2024 5:20 AM EDT [facility] Blood specimen (specimen) Blood specimen / Unknown 01/07/2024 4:32 AM EDT 01/07/2024 4:37 AM EDT Nas Garcia MD LAB BLOOD ORDERABLES Final Resul t [facility] [address] [place] [address], [facility] [address] [place] [address] * (ABNORMAL) Basic Metabolic Panel (01/07/2024 4:32 AM EDT) Glucose 181(H) 65 - 99 mg/dL 01/07/2024 5:19 AM [facility] Comment:Fasting: <100 mg/dL, Non-Fasting: <200 mg/dL (ADA 2004) Blood Urea Nitrogen (BUN) 25(H) 8 - 21 mg/dL 01/07/2024 5:19 AM [facility] Creatinine 1.4(H) 0.4 - 1.1 mg/dL 01/07/2024 5:19 AM [facility] eGFR 44(L) >59 01/07/2024 5:19 AM [facility] Comment:CKD-EPI (2020) in mL /min/1.73 sq meters. Sodium 138 136 - 145 mmol/L 01/07/2024 5:19 AM [facility] Potassium 4.1 3.4 - 5.3 mmol/L 01/07/2024 5:19 AM [facility] Chloride 106 98 - 107 mmol/L 01/07/2024 5:19 AM [facility] CO2 24 22 - 33 mmol/L 01/07/2024 5:19 AM [facility] Anion Gap 8 7 - 17 01/07/2024 5:19 AM [facility] Calcium 9.0 8.7 - 10.5 mg/dL 01/07/2024 5:19 AM [facility] BUN/Creatinine Ratio 18 10.0 - 25.0 Ratio 01/07/2024 5:19 AM [facility] Blood specimen (specimen) (Plasma/Serum) 01/07/2024 4:32 AM EDT 01/07/2024 4:37 AM EDT Nas Garcia MD LAB BLOOD ORDERABLES Final Resul t [facility] [address] [place] [address], [facility] [address] [place] [address] from Last 3 Months or Most Recently Relevant to Health Maintenance Insurance BLUE CROSS OUT OF STATE - PPO BLUE CROSS OUT OF [facility] - O BLUE CROSS OUT OF [facility] - PPO BLUE CROSS OUT OF STATE - PPO Advance Directives * Full Code (Latest Code Status on File) Date Activated Date Inactivated Comments 01/06/2024 5:40 PM Question Answer Comments Decision Thoroughly Discussed with: Patient * Full Code Date Activated Date Inactivated Comments 08/30/2023 12:10 PM 01/06/2024 2:18 PM Full Code Care Teams Supervisor [employer] Relationship Specialty Start Date End Date Britt Villarreal PA-C [address] [place] [address] PCP - General Internal Medicine 11/03/24
--- OUTSIDE RECORDS SUMMARY | 2025-01-22 14:20 | XMS_ITS | Clinical Summary ---
Author Organization [facility] Address [address] [place] [address] Care Team Providers Care Press Tender [employer] Name Role Phone Unavailable Primary Care Provider [...] Mathis Personal/Family Self 1965 [address] [place] [address]
--- OUTSIDE RECORDS SUMMARY | 2025-01-22 14:20 | XMS_ITS | Encounter Summary ---
Author Organization [facility]ly [facility] Address [address] [place] [address] Care Team Providers Care Mental Health Associate Name Role Phone Ranjana Villarreal PA-C Primary Care Provi erika Encounter Details Date Type Department Care Team (Late st Contact Info) Description 12/09/2024 Scanned Document [facility] PULMONOLGY SCAN Pulmonary, Scan Social History Tobacco Use Types Packs/Day [...] 01/28/2025 7:00 AM EDT Telemedicine Clinical Support [facility] [address] [place] [address] [place] [phone] Ranjana Villarreal PA-C [address] [place] [address] Reji Amos, DILIP [address] [place], [place] [phone] 03/17/2025 4:15 PM EDT Telemedicine [address] [place] [phone] Rebecca Angel, BOAT ENGINES INSTALLER [address] [place], [place] [phone] 06/18/2025 11:20 AM EDT Consult [facility] Pulmonary [place] [address] [place] [phone] Ranjana Villarreal PA-C [address] [place] [address] Maria D Hinojosa, BOAT ENGINES INSTALLER [address] [place] [address] 07/22/2025 9:30 AM EDT Office Visit [facility] 100 [facility] [address] [place] [phone] Ranjana Villarreal PA-C [address] [place] [address] documented as of this encounter Visit Diagnoses Not on filedocumented in this encounter Care Teams Mental Health Associate Relationship Specialty Start Date End Date Ranjana Villarreal PA-C [address] [address] PCP - General Internal Medicine 11/03/24 documented as of this encounter
--- OUTSIDE RECORDS SUMMARY | 2025-01-22 14:20 | XMS_ITS | Clinical Summary ---
Author Organization [facility] Address [address] [place] [address] Care Team Providers Care Commercial Loan Reviewer Name Role Phone Unavailable Primary Care Provider [...] of 2) 2016 COVID-19 Vaccine (3 - 2023- season) 2024 12/29/2020, 12/01/2020 Influenza (#1) 2024 [...]
--- OUTSIDE RECORDS SUMMARY | 2025-01-22 14:20 | XMS_ITS | Clinical Summary ---
Author Organization [facility] Address [address] [place] [address] Phone Care Team Providers Care Radio Division Lieutenant Name Role Phone Joel Alegria NP Primary Care Provider [phone] Immunizations Name Administration Dates Next Due Moderna SARS-CoV-2 COVID-19, mRNA, LNP-S, preservative free 12/29/2020,12/01/2020 Surgical History Surgery Date Site/Laterality Comments CHOLECYSTECTOMY 2000 PROCEDURE: HISTORICAL CHOLECYSTECTOMY ENDOMETRIAL ABLATION PROCEDURE: [place] ENDOMETRIAL ABLTJ THERMAL W/O HYSTEROSCOPIC GUID; COMMENT: done twice OTHER SURGICAL HISTORY PROCEDURE: ---- OTHER ----; COMMENT: skin graft for diabetic ulcer SECTION 03/1997 PROCEDURE: HISTORICAL DELIVERY COLONOSCOPY 06/18/2009 PROCEDURE: HISTORICAL COLONOSCOPY; COMMENT: Normal to cecum, repeat 10 years (small grade 2 internal hemorrhoids) UPPER GASTROINTESTINAL ENDOSCOPY 11/26/2001 PROCEDURE: UPPER GI ENDOSCOPY/EXAM; COMMENT: Normal, iron deficiency anemia most likely r/t a pin worker source. OTHER SURGICAL HISTORY 2004 PROCEDURE: HISTORICAL [...] in mother Diabetic ulcer of right foot (CMS/HCC V24, CMS/HCC V28) 07/24/2018 DX:Diabetic ulcer of right f oot (HCC); COMMENT: [facility] ED evaluation 06/29/18, referred to Dr. Ewing, [facility] wound care Managed with IV abx via PICC line through ID, eval with Dr. Harris for skin graft 08/2018 Anxiety 09/17/2018 DX:Anxiety; COMM ENT: Panic attacks Diabetic neuropathy ([facility] V24, [facility] V28) 09/26/2018 DX:Diabetic neuropathy ([facility]) Umbilical hernia 09/26/2018 DX:Umbilical he rnia Type 2 diabetes mellitus wit h neurological manifestations ([facility] V24, [facility] V28) 09/26/2018 DX:Type 2 diabetes mellitus with neurological manifestations ([facility]); COMMENT: Endo consult with Dr. Garces Type 2 diabetes mellitus wit h renal manifestations ([facility] V24, [facility] V28) 01/15/2019 DX:Type 2 diabetes mellitus with renal manifestations ([facility]) Chronic gastric ulcer DX:Chronic gastric ulcer Depression DX:Depression ALIYAH on CPAP 01/15/2019 DX:ALIYAH on CPAP GERD (gastroesophageal reflux disease) 01/15/2019 DX:GERD (gastroesophageal reflux disease) Type 2 diabetes mellitus wit h vascular disease ([facility] V24, [facility] V28) 10/14/2012 DX:Type 2 diabetes mellitus with vascular disease ([facility]) IBS (irritable bowel syndrome) 01/15/2019 D X:IBS (irritable bowel syndrome) Carpal tunnel syndrome of left wrist 01/15/2019 DX:Carpal tunnel syndrome of left wrist Amos's esophagus 03/23/2022 DX:Amos's esophagus Gunlock grade A esophagitis 03/23/2022 DX:Gunlock grade A esophagitis Diabetes mellitus ([facility] V 24, [facility] V28) DX:Diabetes mellitus ([facility]) Hypertension DX:Hypertension Hypercholesterolemia DX:Hypercho lesterolemia Anxiety DX:Anxiety GERD (gastroesophageal reflux disease) DX:GERD (gastroesophageal reflux disease) Family History Medical History Relation Name Comments Other: Graves Disease Brother Heart failure Maternal Grandfather Stroke Other cancer Maternal Grandmother Liver Breast cancer Mother Heart failure Paternal Grandfather NM, Hy pertension Other cancer Paternal Grandmother Kidney [...] Test (HGBA1C) 01/09/2024 07/10/2023 COVID-19 Vaccine ( - season) 2024 12/29/2020, 12/01/2020 DTaP,Tdap,and Td Vaccines (2 - Td or Tdap) 10/22/2024 10/22/2014 Diabetes: Annual GFR (Glomerular Filtration Rate) 02/03/2025 02/04/2024, 01/07/2024, 01/06/2024, Additional history exists Hypertension/CHF/CAD Annual BMP Blood Test 02/03/2025 02/04/2024, 01/07/2024, 01/06/2024, Additional history exists Influenza Vaccine (Season Ended) 2025 07/18/2023, 07/15/2020, 07/18/2018, Additional history exists Breast Cancer Screening 08/05/2026 [...] age to complete this topic Meningococcal B Vaccine Aged Out No l onger eligible based on patient's age to complete [...] Signed Date: 08/05/2024 08:54 ET Workstation ID: [id number] Transcribed By: Self Edit Transcribed Date: 08/05/2024 [...] Signed Date: 08/05/2024 08:54 ET Workstation ID: [id number] Transcribed By: Self Edit Transcribed Date: 08/05/2024 08:44 ET us Self Referral Sppl IMG BI PROCEDURES Final Resul t from Last 3 Months or Most Recently Relevant to Health Maintenance Insurance [address] [place] [address] ([facility]LY [facility]) Care Teams Radio Division Lieutenant Relationship Specialty Start Date End Date Joel Alegria NP [address] [place], [place] PCP - General Family Medicine 08/01/24
--- OUTSIDE RECORDS SUMMARY | 2025-01-22 14:20 | XMS_ITS | Encounter Summary ---
Author Organization [facility] Address [address] [place] [address] Care Team Providers Care Signals Intelligence Analyst Name Role Phone Ranjana Villarreal PA-C Primary Care Provi erika Encounter Details Date Type Department Care Team (Latest Contact Info) Description 01/22/2025 Travel Social History Tobacco Use Types Packs/Day Years Used Date Smoking Tobacco: Never Smokeless Tobacco: Never Alcohol Use Standard Drinks/Week Comments Not Currently [...] 01/28/2025 7:00 AM EDT Telemedicine Clinical Support [facility] Nutrition Services [address] [place] [address] 1st [place] [phone] Ranjana Villarreal PA-C [address] [place] [address] Reji Amos, DILIP [address] [place] [address] 03/17/2025 4:15 PM EDT Telemedicine [address] [place] [phone] Rebecca Angel PRINTED CIRCUIT BOARD LAYOUT DESIGNER [address] [place], [place] [phone] 06/18/2025 11:20 AM EDT Consult [facility] Pulmonary [place] [address] [place] [phone] Ranjana Villarreal PA-C [address] [place] [address] Maria D Hinojosa, PRINTED CIRCUIT BOARD LAYOUT DESIGNER [address] [place] [address] 07/22/2025 9:30 AM EDT Office Visit [facility] 100 [facility] [address] [place] [phone] Ranjana Villarreal PA-C [address] [place] [address] documented as of this encounter Visit Diagnoses Not on filedocumented in this encounter Care Teams Signals Intelligence Analyst Relationship Specialty Start Date End Date Ranjana Villarreal PA-C [address] [place] [address] PCP - General Internal Medicine 11/03/24 documented as of this encounter
--- OUTSIDE RECORDS SUMMARY | 2025-01-22 14:20 | XMS_ITS | Encounter Summary ---
Author Organization [facility] Address [address] [place] [address] Care Team Providers Care Health Navigator Name Role Phone Ranjana Villarreal PA-C Primary Care Provi erika Encounter Details Date Type Department Care Team (Late st Contact Info) Description 12/25/2024 Scanned Document [facility] NEPHROLOGY SCAN Nephrology, Scan Social History Tobacco Use Types Packs/Day [...] 01/28/2025 7:00 AM EDT Telemedicine Clinical Support [facility] Nutrition Services [address] [place] [address] 1st [place] [phone] Ranjana Villarreal PA-C [address] [place] [address] Reji Amos, DILIP [address] [place] [address] 03/17/2025 4:15 PM EDT Telemedicine [address] [place] [phone] Rebecca Angel WAITER/WAITRESS BAR [address] [place], [place] [phone] 06/18/2025 11:20 AM EDT Consult [facility] Pulmonary [place] [address] [place] [phone] Ranjana Villarreal PA-C [address] [place] [address] Maria D Hinojosa, WAITER/WAITRESS BAR [address] [place] [address] 07/22/2025 9:30 AM EDT Office Visit [facility] 100 [facility] [address] [place] [phone] Ranjana Villarreal PA-C [address] [place] [address] documented as of this encounter Visit Diagnoses Not on filedocumented in this encounter Care Teams Health Navigator Relationship Specialty Start Date End Date Ranjana Villarreal PA-C [address] [place] [address] PCP - General Internal Medicine 11/03/24 documented as of this encounter
--- OUTSIDE RECORDS SUMMARY | 2025-01-22 14:20 | XMS_ITS | Encounter Summary ---
Author Organization [facility]ated [facility] Address [address] [place] [address] Care Team Providers Care Classroom Assistant Name Role Phone Ranjana Villarreal PA-C Primary Care Provi erika Reason for Referral * Rehabilitation - Pending Review Specialty Diagnoses / Procedures Referred By Sarah yap Referred To Contact Rehabilitation Diagnoses Full incontinence of feces Dianne Mackay PA [address] [address] Phone: tel: fax: Dileep Kerr, PT [address] [place] [address] Phone: tel: fax: Referral ID Status Reason Start Date Expiration Date Visits Requested Visits Authorized [id number] Pending Review Consult 01/22/2025 01/23/2026 99 99 Question Answer Is this referral for an initial evaluation or additional visits? Initial evaulation Is this related to a Neurological Condition? No Comments For dyssynergic defecation / constipation - eval and treat. * GI Procedure (Routine) - Pending Review Specialty Diagnoses / Procedures Referred By Sarah yap Referred To Contact Diagnoses Amos's esophagus without dysplasia Gastric polyps Procedures EGD Dianne Mackay PA [address] [address] Phone: tel: fax: Referral ID Status Reason Start Date Expiration Date V isits Requested Visits Authorized [id number] Pending Review 01/22/2025 01/23/2026 1 1 Reason for Visit * Reason Comments Consult Encounter Details Date Type Department Care Team (Late st Contact Info) Description 01/22/2025 10:30 AM EDT Consult [facility] [address] [facility] [address] [place] [address] Dianne Mackay PA [address] [place] [address] Full incontinence of feces (Primary Dx); Amos's esophagus without dysplasia; Gastric polyps; Gastroesophageal reflux disease without esophagitis; Irritable bowel syndrome with both constipation and diarrhea; Colon cancer screening; Esophageal dysphagia Social History Tobacco Use Types Packs/Day Years [...] Pulse 85 01/22/2025 10:46 AM EDT Temperature - - Respiratory Rate - - Oxygen Saturation 96% 01/22/2025 10:46 AM EDT Inhaled Oxygen Concentration - - Weight 127 kg (281 lb) 01/22/2025 10:46 AM EDT Height 165.1 cm (5' 5 ) 01/22/2025 10:46 AM EDT Body Mass Index 46.76 01/22/2025 10:46 AM EDT documented in this encounter Progress Notes * KENZIE Harvey - 01/22/2025 10:30 AM EDT Gastroenterology Consult Note Date of Consult: 01/22/2025 Patient's Primary Care Physician: Ranjana Villarreal PA-C Physician Requesting Consult: Joel Alegria MD [address] [place] [address] Reason for Consultation: fecal incontinence Assessment & Plan Assessment/plan Full incontinence of feces Continue fiber supplementation Discussed increasing to BID dosing Will send pt for evaluation of biofeedback- Edu Kerr. Amos's esophagus Dx 3 years ago at another practice, [...] monitor for dysplasia and cancer. Schedule EGD Gastric polyps Pt reporting gastric polyps seen on imaging No imaging for my review at time of visit Pt told likely benign Schedule EGD Gastroesophageal reflux disease without esophagitis Controlled with pantoprazole daily, continue this. Avoid/limit tobacco, alcohol, chocolate, peppermint, caffeine, greasy foods, spicy foods, and acidic foods such as citrus and tomato. Eat smaller, more frequent meals, and do not eat within 2 hours of bedtime. If you have night-time symptoms, elevate the head of the bed 6 to 12 inches. Handout provided. Follow clinically. IBS (irritable bowel syndrome) Discussed high fiber diet Avoid food triggers Regular exercise, and sleep Continue fiber supplementation and increase to BID Colon cancer screening Per pt last colonoscopy 3 years ago and told 10 year follow up Will get records from prior GI Esophageal dysphagia ?dysmotility Prior barium swallow at other GI practice Will ask for records EGD per above Orders Placed This Encounter EGD Amb Referral to Therapy Services (PT or OT) PANTOprazole (PROTONIX) 40 MG EC tablet Greater than 50 % of 40 min time spent with counseling on disease management and coordination of care. HPI Ewelina Mathis is a 59 y.o. female who is here for a second opinion. She is being followed with GI in [facility]. She has had fecal incontinence typically while she is sleeping, for many years. She was referred here by outside GI but pt looking to switch practices. No records at the time of this OV She has some mild chronic constipation that alternates with diarrhea She was dx with IBS-D years ago. She takes pyllium 1 tsp daily. She has EGD scheduled in March for follow up of Amos's and gastric polyps. She says 3 years ago she was diagnosed with Barretts. She has chronic intermittent dysphagia- she had a barium swallow for this and result she said was not explained to her. Happens a few times a week with both liquid and solids Last colonoscopy ~ 3 years ago and recall in 10 years, no polyps H/o colon cancer in great aunt Review of Systems Constitutional: Negative for decreased appetite, fever and weight loss. HENT: Negative for hoarse voice and sleep apnea. Eyes: Negative for wears glasses or contacts. Respiratory: Negative for cough and difficulty breathing. Cardiovascular: Negative for chest pain and palpitations. Gastrointestinal: Positive for constipation, diarrhea and difficulty eating/swallowing. Negative for abdominal pain, bloating, blood in stool, change in bowel habit, flatus, heartburn, hematemesis, black stool, nausea, vomiting, abdominal swelling, food intolerance, early satiety, painful bowel movement, pain swallowing, belching and laxative use. Genitourinary: Negative for frequency, pelvic pain and change in urine stream. Musculoskeletal: Negative for physical disability. Skin: Negative for itching and rash. Neurological: Negative for dizziness and weakness. Endo/Heme/Allergies: Does not bruise/bleed easily. Psychiatric/Behavioral: The patient is not nervous/anxious. Objective Vitals: 01/22/25 1046 BP: 122/78 Pulse: 85 SpO2: 96% Weight: 127 kg (281 lb) Height: 1.651 m (5' 5 ) Body mass index is 46.76 kg/m??. Physical Exam Vitals and nursing note reviewed. Constitutional: Appearance: Normal appearance. She is well-developed. HENT: Head: Normocephalic. Eyes: General: No scleral icterus. Conjunctiva/sclera: Conjunctivae normal. Cardiovascular: Rate and Rhythm: Normal rate and regular rhythm. Heart sounds: Normal heart sounds. Pulmonary: Effort: Pulmonary effort is normal. Breath sounds: Normal breath sounds. Abdominal: General: Bowel sounds are normal. There is no distension. Palpations: Abdomen is soft. Tenderness: There is no abdominal tenderness. Musculoskeletal: Cervical back: Neck supple. Skin: General: Skin is warm and dry. Neurological: Mental Status: She is alert and oriented to person, place, and time. Psychiatric: Behavior: Behavior normal. Allergies[1] Outpatient Medications Marked as Taking for the 01/22/25 encounter (Consult) with KENZIE Harvey: albuterol (PROVENTIL HFA; VENTOLIN HFA) 108 (90 [...] Rfl: Continuous Glucose Sensor (Dexcom G6 Sensor) [facility], USE 1 SENSOR EVERY 10 DAYS, Disp: , Rfl: Continuous Glucose Transmitter (Dexcom G6 Transmitter) [facility], 1 DEVICE BY DOES NOT APPLY ROUTE SEE ADMIN INSTRUCTIONS. CHANGE TRANSMITTER EVERY 3 MONTHS., Disp: , Rfl: estradiol (ESTRACE) 0.01 % vaginal cream, APPLY PEA-SIZED AMOUNT TO URETHRA DAILY X 1 MONTH THEN THREE DAYS A WEEK THEREAFTER, Disp: , Rfl: evolocumab (REPATHA SURECLICK) 140 MG/ML auto-injector, Inject 1 mL (140 mg total) under the skin every 14 days (2 weeks)., Disp: , Rfl: fluticasone-salmeterol 100-50 mcg/inh diskus inhaler, Inhale 1 puff 2 (two) times a day., Disp: , Rfl: gabapentin (NEURONTIN) 300 MG capsule, Take 1 capsule (300 mg total) by mouth 3 (three) times a day., Disp: , Rfl: hydroCHLOROthiazide (MICROZIDE) 12.5 MG capsule, Take 1 capsule (12.5 mg total) by mouth., Disp: , Rfl: hydrOXYzine HCl (ATARAX) 10 MG tablet, Take 1 tablet (10 mg total) by mouth daily as needed., Disp:, Rfl: insulin aspart (NovoLOG FlexPen) 100 UNIT/ML prefilled pen injection, Inject 10 Units under the skin 3 (three) times a day before meals. Patient reports utilizing sliding scale, Disp: , Rfl: insulin glargine (insulin glargine, JEANNEAGLANTONIETA VEGA,) 100 units/mL prefilled pen injection, [id number] Units under the skin nightly., Disp: , Rfl: ipratropium (ATROVENT) 0.03 % nasal spray, USE 2 SPRAYS IN EACH NOSTIL TWICE DAILY, Disp: , Rfl: ipratropium-albuterol (DUONEB) 0.5-2.5 mg/3 mL nebulizer solution, 3 ML INHALED EVERY 6 HOURS NEEDED FOR WHEEZING, Disp: , Rfl: lisinopril (PRINIVIL,ZeSTRIL) 10 MG tablet, Take 1 tablet (10 mg total) by mouth daily., Disp: , Rfl: naltrexone (REVIA) 50 MG tablet, Take 1 tablet (50 mg total) by mouth daily., Disp: , Rfl: primidone (MYSOLINE) 50 MG tablet, Take 1 tablet (50 mg total) by mouth., Disp: , Rfl: traZODone (DESYREL) 100 MG tablet, Take 1 tablet (100 mg total) by mouth nightly., Disp: , Rfl: [DISCONTINUED] PANTOprazole (PROTONIX) 20 MG tablet, Take 2 tablets (40 mg total) by mouth daily., Disp: , Rfl: Recent Labs and Tests CBC CMP INR LIPASE Abdominal Imaging Test within 1 month Histories Past Medical History: Diagnosis Date Anemia Anxiety CAD (coronary artery disease) 11/03/2024 Charcot joint of foot Community acquired pneumonia 07/18/2023 Depression Diabetes mellitus (HCC) Diabetic neuropathy associated with type 2 diabetes mellitus ([facility]) 11/03/2024 Dyspnea due to COVID-19 01/01/2025 Gastroesophageal reflux disease without esophagitis 11/03/2024 History [...] complication, with long-term current use of insulin ([facility]) 11/03/2024 Past Surgical History: Procedure Laterality Date SECTION CHOLECYSTECTOMY HYSTERECTOMY Social History[2] History reviewed. No pertinent family history. GI Procedural History Sign: KENZIE Harvey 01/22/2025 11:21 AM [1] Allergies Allergen Reactions Ceftriaxone Rash/Dermatitis Metformin Diarrhea [2] Social History Tobacco Use Smoking status: Never Smokeless tobacco: Never Vaping Use Vaping status: Never Used Substance Use Topics Alcohol use: Not Currently Comment: Patient reported no comsumption of alcohol currently. Drug use: Yes Types: Marijuana documented in this encounter Miscellaneous Notes * Assessment & Plan Note - KENZIE Harvey - 01/22/2025 11:20 AM EDT Associated Problem(s): Esophageal dysphagia ?dysmotility Prior barium swallow at other GI practice Will ask for records EGD per above * Assessment & Plan Note - KENZIE Harvey - 01/22/2025 11:20 AM EDT Associated Problem(s): Colon cancer screening Per pt last colonoscopy 3 years ago and told 10 year follow up Will get records from prior GI * Assessment & Plan Note - KENZIE Harvey - 01/22/2025 11:19 AM EDT Associated Problem(s): IBS (irritable bowel syndrome) Discussed high fiber diet Avoid food triggers Regular exercise, and sleep Continue fiber supplementation and increase to BID * Assessment & Plan Note - KENZIE Harvey - 01/22/2025 11:18 AM EDT Associated Problem(s): Gastroesophageal reflux disease without esophagitis Controlled with pantoprazole daily, continue this. Avoid/limit tobacco, alcohol, chocolate, peppermint, caffeine, greasy foods, spicy foods, and acidic foods such as citrus and tomato. Eat smaller, more frequent meals, and do not eat within 2 hours of bedtime. If you have night-time symptoms, elevate the head of the bed 6 to 12 inches. Handout provided. Follow clinically. * Assessment & Plan Note - KENZIE Harvey - 01/22/2025 11:18 AM EDT Associated Problem(s): Gastric polyps Pt reporting gastric polyps seen on imaging No imaging for my review at time of visit Pt told likely benign Schedule EGD * Assessment & Plan Note - KENZIE Harvey - 01/22/2025 11:17 AM EDT Associated Problem(s): Amos's esophagus Dx 3 years ago at another practice, [...] monitor for dysplasia and cancer. Schedule EGD * Assessment & Plan Note - KENZIE Harvey - 01/22/2025 11:16 AM EDT Associated Problem(s): Full incontinence of feces Continue fiber supplementation Discussed increasing to BID dosing Will send pt for evaluation of biofeedback- Edu Cirilo. documented in this encounter Plan of Treatment Upcoming Encounters Date Type Department Care Team (Late st Contact Info) Description 01/28/2025 7:00 AM EDT Telemedicine Clinical Support [facility][note 3] Nutrition Services [address] [place] [phone] Ranjana Villarreal PA-C [address] [place] [address] Reji Amos, DILIP [address] [place] [address] 03/17/2025 4:15 PM EDT Telemedicine [address] [place] [phone] Rebecca Angel APRN [address] [place] [address] 06/18/2025 11:20 AM EDT Consult [facility] [place] 100 [place] [phone] Ranjana Villarreal PA-C 100 [place] [address] Maria D Hinojosa, LAY UPS ASSEMBLER [address] [place] [address] 07/22/2025 9:30 AM EDT Office Visit [facility] [address] [facility] [address] [place] [address] Ranjana Villarreal PA-C [address] [place] [address] Scheduled Orders Name Type Priority Associated Diagnoses Orde r Schedule EGD Procedures Routine Amos's esophagus without dysplasia Gastric polyps Expected: 02/06/2025, Expires: 01/22/2026 Scheduled Referrals Name Type Priority Associated Diagnoses Orde r Schedule Amb Referral to Therapy Services (PT or OT) Outpatient Referral Routine Full incontinence of feces Ordered: 01/22/2025 documented as of this encounter Visit Diagnoses Diagnosis Full incontinence of feces- Primary Amos's esophagus without dysplasia Gastric polyps Benign neoplasm of stomach Gastroesophageal reflux disease without esophagitis Esophageal reflux Irritable bowel syndrome with both constipation and diarrhea Colon cancer screening Special screening for malignant neoplasms, colon Esophageal dysphagia Dysphagia, pharyngoesophageal phase documented in this encounter Care Teams Classroom Assistant Relationship Specialty Start Date End Date Ranjana Villarreal PA-C [address] [place] [address] PCP - General Internal Medicine 11/03/24 documented as of this encounter
--- OUTSIDE RECORDS SUMMARY | 2025-01-22 14:20 | XMS_ITS | Encounter Summary ---
Author Organization [facility] Address [address] [place] [address] Care Team Providers Care Sign Builder Supervisor Name Role Phone Ranjana Villarreal PA-C Primary Care Provi erika Encounter Details Date Type Department Care Team (Late st Contact Info) Description 11/20/2024 Scanned Document [address] [place] [address] Primary Care, Scan Social History [...] 01/28/2025 7:00 AM EDT Telemedicine Clinical Support [facility] Nutrition Services [address] [place] [phone] Ranjana Villarreal PA-C 100 [place] [address] Reji Amos, DILIP [address] [place], [place] [phone] 03/17/2025 4:15 PM EDT Telemedicine [facility] [address] [facility] [address] [place] [phone] Rebecca Angel APRN 31 [place] [address] 06/18/2025 11:20 AM EDT Consult [facility] [place] 100 [place] [phone] Ranjana Villarreal PA-C 100 [place] [address] Maria D Hinojosa, MARCOS [address] [place] [address] 07/22/2025 9:30 AM EDT Office Visit [address] [place] [phone] Ranjana Villarreal PA-C 100 [place] [address] documented as of this encounter Visit Diagnoses Not on filedocumented in this encounter Care Teams Sign Builder Supervisor Relationship Specialty Start Date End Date Ranjana Villarreal PA-C [address] [place] [address] PCP - General Internal Medicine 11/03/24 documented as of this encounter
== END 2025-01-22 12:01 | disposition home or self-care (01) ==
LOC: HO.HMGCX 12:00
PROVIDERS: PCP Physician Assistant Medical; Referring Provider Nurse Practitioner Family; Visit Provider Nurse Practitioner Family
DX: R06.09 Other forms of dyspnea (principal); N39.0 Urinary tract infection, site not specified
CPT/HCPCS: 71046; 81001; 87086; 87088; 87186

== ENCOUNTER → 2025-01-22 12:13 | Outpatient (BNV) | payer BC, SELFPAY | PROVIDERS: PCP Physician Assistant Medical; Referring Provider Nurse Practitioner Family; Visit Provider Radiology Diagnostic Radiology | DX: R06.09 Other forms of dyspnea (principal) | CPT/HCPCS: 71046 ==

== ENCOUNTER 2025-02-16 07:48 | Outpatient (REF) | payer BC, SELFPAY ==
--- OUTSIDE RECORDS SUMMARY | 2025-02-16 10:30 | XMS_ITS | Encounter Summary ---
Author Organization [facility] Address [address] [place] [address] Care Team Providers Care Carbon Coater Machine Operator Name Role Phone Ranjana Villarreal PA-C Primary Care Provi erika Encounter Details Date Type Department Care Team (Late st Contact Info) Description 12/25/2024 Scanned Document [facility] NEPHROLOGY SCAN Nephrology, Scan Social History [...] EDT Hospital Encounter [facility] [address] [place] [address], [place] [phone] Jaison Holman MD [address] [id number] 02/27/2025 9:30 AM EDT Appointment [facility] [address] [place] [address] Jaison Holman MD [address] [id number] 02/27/2025 9:30 AM EDT - 02/27/2025 10:00 AM EDT Surgery [facility] [address] [place] [address], [place] [phone] Jaison Holman MD [address] [id number] ENDOSCOPY UPPER 03/02/2025 7:00 AM EDT Telemedicine Clinical Support [facility] [address] [place] [phone] Ranjana Villarreal PA-C [address] [place] [address] Reji Amos, DILIP [address] [place], [place] [id number] 03/17/2025 4:15 PM EDT Telemedicine [facility] [place] [address] [facility] [address] [place] [phone] Rebecca Angel APRN [address] [place], [place] [phone] 04/30/2025 8:30 AM EDT Evaluation [facility] [address] [place] [facility] [place] [phone] Dianne Mackay PA [address] [address] Jelani Hall, PT [address] [place] [address] 05/07/2025 9:15 AM EDT Treatment [facility] [address] [place] [phone] Dianne Mackay PA [address] [address] Jelani Hall, PT [address] [place] [address] 06/18/2025 11:20 AM EDT Consult [facility] Pulmonary [address] [phone] Ranjana Villarreal PA-C [address] [place] [phone] Maria D Hinojosa, MEDICAL INFORMATION OFFICER [address] [place] [address] 07/22/2025 9:30 AM EDT Office Visit [address] [place] [phone] Ranjana Villarreal PA-C [address] [place] [phone] Scheduled Procedures Name Priority Associated Diagnoses Date/Ti az ENDOSCOPY UPPER Amos's esophagus without dysplasia Gastric polyps 02/27/2025 9:30 AM EDT documented as of this encounter Visit Diagnoses Not on filedocumented in this encounter Care Teams Carbon Coater Machine Operator Relationship Specialty Start Date End Date Ranjana Villarreal PA-C [address] [place] [address] PCP - General Internal Medicine 11/03/24 documented as of this encounter
--- OUTSIDE RECORDS SUMMARY | 2025-02-16 10:30 | XMS_ITS | Clinical Summary ---
Author Organization [facility] Address [address] [place] [address] Care Team Providers Care Account Receivable Associate Name Role Phone Unavailable Primary Care Provider [...]
--- OUTSIDE RECORDS SUMMARY | 2025-02-16 10:31 | XMS_ITS | Encounter Summary ---
Author Organization [facility] Address [address] [place] [address] Care Team Providers Care Chief Procurement Officer Name Role Phone Ranjana Villarreal PA-C Primary Care Provi erika Encounter Details Date Type Department Care Team (Late st Contact Info) Description 11/20/2024 Scanned Document [address] [place] [address] Primary Care, Scan Social History [...] Description 02/27/2025 9:30 AM EDT Hospital Encounter [facility] [address] [place] [address], [place] [phone] Jaison Holman MD [address] [address] 02/27/2025 9:30 AM EDT Appointment [facility] [address] [place] [address] Jaison Holman MD [address] [address] 02/27/2025 9:30 AM EDT - 02/27/2025 10:00 AM EDT Surgery [facility] [address] [place] [address], [place] [phone] Jaison Holman MD [address] [id number] ENDOSCOPY UPPER 03/02/2025 7:00 AM EDT Telemedicine Clinical Support [facility] [address] [place] [phone] Ranjana Villarreal PA-C [address] [place] [address] Reji Amos, DILIP [address] [place], [place] [phone] 03/17/2025 4:[address] [facility] [place] [address] [facility] [address] [place] [phone] Rebecca Angel APRN 31 [place] [address] 04/30/2025 8:30 AM EDT Evaluation [facility] 1060 [facility] [place] [place] [phone] Dianne Mackay, PA [address] [address] Jelani Hall, PT 1060 [facility] [place] [address] 05/07/2025 9:15 AM EDT Treatment [facility] [address] [place] [address], [place] [phone] Dianne Mackay, KENZIE [address] [address] [place] [address] [place] [address] 06/18/2025 11:20 AM EDT Consult [address] [phone] Ranjana Villarreal PA-C [address] [place] [address] Maria D Hinojosa, HEAD OF TRANSPORT LOGISTICS [address] [place] [address] 07/22/2025 9:30 AM EDT Office Visit [address] [phone] Ranjana Villarreal PA-C [address] [place] [address] Scheduled Procedures Name Priority Associated Diagnoses Date/Ti me ENDOSCOPY UPPER Amos's esophagus without dysplasia Gastric polyps 02/27/2025 9:30 AM EDT documented as of this encounter Visit Diagnoses Not on filedocumented in this encounter Care Teams Chief Procurement Officer Relationship Specialty Start Date End Date Ranjana Villarreal PA-C [address] [place] [address] PCP - General Internal Medicine 11/03/24 documented as of this encounter
--- OUTSIDE RECORDS SUMMARY | 2025-02-16 10:31 | XMS_ITS | Encounter Summary ---
Author Organization [facility] Address [address] [place] [address] Care Team Providers Care Refiner Operator Name Role Phone Ranjana Villarreal PA-C [...] Description 02/27/2025 9:30 AM EDT Hospital Encounter [facility] [address] [place] [address], [place] [phone] Jaison Holman MD [address] [id number] 02/27/2025 9:30 AM EDT Appointment [facility] [address] [place] [address] Jaison Holman MD [address] [id number] 02/27/2025 9:30 AM EDT - 02/27/2025 10:00 AM EDT Surgery [facility] [address] [place] [address], [place] [phone] Jaison Holman MD [address] [phone] ENDOSCOPY UPPER 03/02/2025 7:00 AM EDT Telemedicine Clinical Support [facility] [place] [facility] [address] [place] [phone] Ranjana Villarreal PA-C [address] [place] [address] Reji Amos, DILIP [address] [place], [place] [phone] 03/17/2025 4:15 PM EDT Telemedicine [facility] [place] 31 [facility] [address] [place] [phone] Rebecca Angel APRN 31 [place], [place] [phone] 04/30/2025 8:30 AM EDT Evaluation [facility] [address] [place] [phone] Dianne Mackay PA [address] [address] Jelani Hall, PT 10[address] [place] [address] 05/07/2025 9:15 AM EDT Treatment [facility] [address] [place] [phone] Dianne Mackay PA [address] [address] Jelani Hall, PT 10[address] [place] [address] 06/18/2025 11:20 AM EDT Consult [facility] [address] [phone] Ranjana Villarreal PA-C 100 [place] [address] Maria D Hinojosa, QUALITY CONTROL TECH [address] [place] [address] 07/22/2025 9:30 AM EDT Office Visit [address] [place] [phone] Ranjana Villarreal PA-C [address] [place] [address] Scheduled Procedures Name Priority Associated Diagnoses Date/Ti ks ENDOSCOPY UPPER Amos's esophagus without dysplasia Gastric polyps 02/27/2025 9:30 AM EDT documented as of this encounter Visit Diagnoses Not on filedocumented in this encounter Care Teams Refiner Operator Relationship Specialty Start Date End Date Ranjana Villarreal PA-C [address] [place] [address] PCP - General Internal Medicine 11/03/24 documented as of this encounter
--- OUTSIDE RECORDS SUMMARY | 2025-02-16 10:31 | XMS_ITS | Continuity of Care Document ---
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 06/30/2024 Baqsimi One Nrqs7zy/Dose Powder spray into nostril as needed for low sugar reaction 1unlitzy Bui M.D. 02/14/2024 Lant Dmivyuit143Mxgv/ML Solution Pen-Inject inject 50 units daily as directed 45ml E11Lexy Bui M.D. 10/26/2023 Fglpjfwjn63vz Tablets Take 1 Tablet By Mouth Every Day For 30 Days Lynnette Cardona MD Atorvastatin Jakhams66fw Tablets 1 by mouth every day Unknown Amlodipine Esicjykg3al Tablets Take 1 Tablet (5 MG Total) By Mouth Daily. Unknown Repatha Iiclcgmdx449ah/ml Solution Auto-Inject inject 1 syringe under the skin every 2 weeks Unknown Aspirin 8181mg Tablets DR 1 by mouth every day Susan Bui M.D. Hydroxyzine QOR87xn Tablets Take 1 Tablet By Mouth Every Day as Needed Unknown Dexcom G6 SensorMisc use 1 sensor every 10 days 9units E11.42 Susan Bui M.D. Dexcom G6 SensorMisc Please See Attached For Detailed Directions Unknown Nihavobscw397np Capsules Take 2 Capsule By Mouth Three Times A Day Unknown Dexcom G6 TransmitterMisc To Use With Sensors DX E11.42 1units E11.Jared Bui M.D. Pantoprazole Vendeb07zf Tablets DR Take 1 Tablet By Mouth Every Morning (Before Breakfast) For 360 Days. Unknown Albuterol Sulfate IEP128(90Base) mcg/Act Aerosol Take 2 Puffs By Mouth Every 4 Hours as Needed For Wheeze Unknown Ipratropium Bromide0.06% Solution Administer 2 Sprays Into Each Nostril Every 6 Hours as Needed For Rhinitis. Unknown Odblgnuaxg29rq Tablets Take 1 Tablet By Mouth Every Day Unknown Hyoscyamine Sulfate0.125mg Tablets Take 1 Tablet By Mouth 4 Times Daily as Needed For Cramping Or Diarrhea For Up T Unknown Basaglar Fsgyqnj475Tneq/ML Solution Pen-Inject Inject 55 Units Into The Skin AT Bedtime 60ml E11.42 Susan Bui M.D. Trazodone YAK721vh Tablets Take 1 Tablet By Mouth Everyday [...] Inhouse Hemoglobin A1c 6.9% Gad65 Autoantibodies 08/15/2023 [facility] Gad65 Autoantibodies <5.0 1 Islet Cell Antibody 512 08/15/2023 [facility] Islet Cell Antibody 512 <7.5 2 Insulin Antibody 08/15/2023 [facility] Insulin Antibody 12 High 3 1 Reference range: 0.0 to 5.0 Unit: U/mL Test performed at [address] [address] 2 Unit: U/mL (NOTE) Reference Range: <7.5 Negative > or EQ 7.5 Positive Test performed by [facility], [address] [place] [address] 3 Unit: uU/mL (NOTE) This test is also known as insulin autoantibody or IAA. This test was developed and its performance characteristics determined by [facility]. It has not been cleared or approved by the Food and Drug Administration. Reference Range: <5.0 Negative > or EQ 5.0 Positive Test performed by [facility], [address] [place] [address] Procedures Date Code Description Status 08/10/2023 13464 Collection Of Venous Blood B y Venipuncture [...] Chip Meyer MD POSSIBLE SEIZURES Closed [address] [facility] [address] [place], [place] [phone]
--- OUTSIDE RECORDS SUMMARY | 2025-02-16 10:31 | XMS_ITS | Clinical Summary ---
Author Organization [facility] Address [address] [place] [address] Care Team Providers Care Roll Hauler Name Role Phone Unavailable Primary Care Provider [...] Mathis Personal/Family Self 1965 [address] [place] [address]
--- OUTSIDE RECORDS SUMMARY | 2025-02-16 10:31 | XMS_ITS | Clinical Summary ---
Author Organization [facility] Address [address] [place] [address] Care Team Providers Care Paramedic Name Role Phone Britt Villarreal PA-C Primary [...] 02/13/2025 Continuous Glucose Sensor (Dexcom G6 Sensor) [facility] [place] 1 SENSOR EVERY 10 DAYS 06/25/20 24 Active Continuous Glucose Transmitter (Dexcom G6 Transmitter) [facility] 1 DEVICE BY DOES NOT APPLY ROUTE [...] Team Description 02/13/2025 Travel 02/02/2025 Orders Only [address] [place] [address] Britt Villarreal PA-C Primary hypertension (Primary Dx) 01/29/2025 Telephone [facility] [address] [facility] [address] [place] [phone] Aileen Hyman 01/29/[address] [phone] Aileen Hyman 01/28/2025 1:30 PM EDT Office Visit [address] [phone] Britt Villarreal PA-C Yeast infection (Primary Dx); Primary hypertension; Anemia, unspecified type; Stage 3 chronic kidney disease, unspecified whether stage 3a or 3b CKD (HCC); Bilateral leg edema; Type 2 diabetes mellitus without complication, with long-term current use of insulin (HCC); Other hyperlipidemia 01/28/2025 7:00 AM EDT Telemedicine Clinical Support [facility] [place] [facility] [address] [place] [phone] Britt Villarreal PA-C Barrett, Christopher, RD Type 2 diabetes mellitus without complication, with long-term current use of insulin (HCC) (Primary Dx); Morbid obesity (HCC) 01/28/2025 Travel 01/27/2025 Orders Only [facility] [place] [address] Pulmonary, Scan 01/23/[address] [phone] Aileen Hyman 01/23/2025 Orders Only [address] [phone] Aileen Hymna 01/22/2025 10:30 AM EDT Consult [address] [phone] Dianne Mackay PA Full incontinence of feces (Primary Dx); Amos's esophagus without dysplasia; Gastric polyps; Gastroesophageal reflux disease without esophagitis; Irritable bowel syndrome with both constipation and diarrhea; Colon cancer screening; Esophageal dysphagia 01/22/2025 Travel 01/01/2025 1:00 PM EDT Office Visit [address] [phone] Britt Villarreal PA-C Morbid obesity (HCC) (Primary Dx); Snoring; Apnea; Dyspnea due to COVID-19; Primary hypertension 01/01/2025 Travel 12/29/2024 7:00 AM EDT Telemedicine Clinical Support [facility] 32 [facility] 1st [place] [phone] Britt Villarreal PA-C Barrett, Christopher, RD Morbid obesity (HCC) (Primary Dx); Type 2 diabetes mellitus without complication, with long-term current use of insulin (HCC) 12/29/2024 Travel 12/25/2024 Scanned Document [facility] NEPHROLOGY SCAN Nephrology, Scan 12/15/2024 3:00 PM EDT Consult [address] [phone] Eladio Becker MD Perez, Cristina, APRN Morbid obesity (HCC) (Primary Dx) 12/15/2024 Travel 12/09/2024 Scanned Document [facility] PULMONOLGY SCAN Pulmonary, Scan 12/02/[address] [place] [address] Rebecca Angel APRN 11/25/2024 11:55 AM EST Ancillary Procedure [facility] [address] [address] 11/25/2024 10:45 AM EST Ancillary [facility] [address] [address] 11/25/2024 10:00 AM EST Consult [facility] [address] [address] Eladio Becker MD Pain in both knees, unspecified chronicity (Primary Dx); Pain in left ankle and joints of left foot; Morbid obesity (HCC) 11/20/2024 Scanned Document [facility] [address] [address] Primary Care, Scan from Last 3 Months [...] Description 02/27/2025 9:30 AM EDT Hospital Encounter [facility] Gastroenterology Division [address] [place] [phone] Jaison Holman MD [address] [address] 02/27/2025 9:30 AM EDT Appointment [facility] [address] [place] [address] Jaison Holman MD [address] [phone] 02/27/2025 9:30 AM EDT - 02/27/2025 10:00 AM EDT Surgery [facility] Gastroenterology Division [address] [place] [phone] Jaison Holman MD [address] [phone] ENDOSCOPY UPPER 03/02/2025 7:00 AM EDT Telemedicine Clinical Support [facility] [place] [facility] [address] [place] [phone] Britt Villarreal PA-C [address] [place] [address] [place] [phone] 03/17/2025 4:15 PM EDT Telemedicine [facility] [place] [address] [facility] [address] [place] [phone] Rebecca Angel APRN 31 [place] [address] 04/30/2025 8:30 AM EDT Evaluation [place] [address] [place] [phone] Dianne Mackay, KENZIE 113 [facility] 303 [place] [address] Jelani Hall, PT 1060 [place] [address] 05/07/2025 9:15 AM EDT Treatment [facility] 1060 [place] [phone] Dianne Mackay PA 113 [facility] 303 [place] [address] Jelani Hall, PT 1060 [place] [address] 06/18/2025 11:20 AM EDT Consult [facility] Pulmonary [place] 100 [place] [address] Britt Villarreal PA-C 100 [place] [address] Maria D Hinojosa, RISK CONTROL OFFICER 699 [place] [address] 07/22/2025 9:30 AM EDT Office Visit [facility] 100 [facility] [address] [place] [phone] Britt Villarreal PA-C 100 [place] [address] Scheduled Procedures Name Priority Associated Diagnoses Date/Ti [...] Eladia [employer] Implanted Type Area [place] Device Identifier Shelf Expiration Date Model / [...] Ferritin Panel (01/29/2025 1:22 PM EDT) Pathologist [facility] Iron 53 45 - 160 mcg/dL [facility] Total Iron Binding Capacity 288 250 - 450 mcg/dL (calc) [facility] Iron Saturation 18 16 - 45 % (calc) [facility] Ferritin 57 16 - 232 ng/mL [facility] Blood Blood specimen / Unknown 01/29/2025 1:22 PM EDT 01/29/2025 1:25 PM EDT Narrative [facility] - 01/30/2025 10:28 AM EDT FASTING:YES FASTING: YES Britt Villarreal PA-C LAB BLOOD ORDERABLE S Final Result Performing Organization Address [facility]/ZIP Co de Phone Number [facility] [address] [place] [phone] * TSH REFLEX FREE T4 (01/29/2025 1:22 PM EDT) [facility] TSH reflex Free T4 1.19 0.40 - 4.50 mIU/L [facility] Blood specimen / Unknown 01/29/2025 1:22 PM EDT 01/29/2025 1:25 PM EDT Narrative [facility] - 01/30/2025 10:28 AM EDT FASTING:YES FASTING: YES Britt Villarreal PA-C LAB BLOOD ORDERABLE S Final Result Performing Organization Address [facility]/ZIP Co de Phone Number [facility] [address] [place] [phone] * (ABNORMAL) Lipid panel with nonHDL (01/29/2025 1:22 PM EDT) [facility] Cholesterol, Total 124 <200 mg/dL [facility] Cholesterol, HDL 47(L) > OR = 50 mg/dL [facility] Triglycerides 153(H) <150 mg/dL [facility] LDL Cholesterol 53 mg/dL (calc) [facility] Comment: Reference range: <100 Desirable range <100 mg/dL for primary prevention; ?? <70 mg/dL for patients with CHD or diabetic patients with > or = 2 CHD risk factors. LDL-C is now calculated using the Kush calculation, which is a validated novel method providing better accuracy than the Friedewald equation in the estimation of LDL-C. Sudarshan SS et al. BRITTNEE. 2013;310(19): 8807-6561 (http://education.CloudLock/faq/VLO422) Cholesterol/HDL Ratio 2.6 <5.0 (calc) [facility] Non HDL Chol. (LDL+VLDL) 77 <130 mg/dL (calc) [facility] Comment: For patients with diabetes plus 1 major ASCVD risk factor, treating to a non-HDL-C goal of <100 mg/dL (LDL-C of <70 mg/dL) is considered a therapeutic option. Blood Blood specimen / Unknown 01/29/2025 1:22 PM EDT 01/29/2025 1:25 PM EDT Narrative [facility] - 01/30/2025 10:28 AM EDT FASTING:YES FASTING: YES us Britt Villarreal PA-C LAB BLOOD ORDERABLE S Final Result [facility] [address] [place] [phone] * Vitamin B12 and Folate (01/29/2025 1:22 PM EDT) Vitamin B12 470 200 - 1,100 pg/mL [facility] Folate, Serum 13.8 ng/mL [facility] Comment: ? Reference Range ? Low: ? <3.4 ? Borderline: ?3.4-5.4 ? Normal: ?>5.4 Blood Blood specimen / Unknown 01/29/2025 1:22 PM EDT 01/29/2025 1:25 PM EDT Narrative [facility] - 01/30/2025 10:28 AM EDT FASTING:YES FASTING: YES Britt Villarreal PA-C LAB BLOOD ORDERABLE S Final Result [facility] [address] [place] [phone] * (ABNORMAL) Complete Blood Count, with Differential (01/29/2025 1:22 PM EDT) Pathologist [facility] White Blood Cell Count 9.7 3.8 - 10.8 Thousand/ uL [facility] Red Blood Cell Count 4.05 3.80 - 5.10 Million/u L [facility] Hemoglobin 11.1(L) 11.7 - 15.5 g/dL [facility] [employer] Hematocrit 35.1 35.0 - 45.0 % [facility] MCV 86.7 80.0 - 100.0 fL [facility] [employer] MCH 27.4 27.0 - 33.0 pg [facility] MCHC 31.6(L) 32.0 - 36.0 g/dL [facility] Comment: For adults, a slight decrease in the calculated MCHC value (in the range of 30 to 32 g/dL) is most likely not clinically significant; however, it should be interpreted with caution in correlation with other red cell parameters and the patient's clinical condition. RDW 13.4 11.0 - 15.0 % [facility] Platelet Count 262 140 - 400 Thousand/ uL [facility] MPV 9.8 7.5 - 12.5 fL [facility] [employer] [employer] Abs Neutrophils Auto 6,645 1,500 - 7,800 cells/uL [facility] [employer] [employer] Abs Lymphocytes Auto 2,241 850 - 3,900 cells/uL [facility] Abs Monocytes Auto 466 200 - 950 cells/uL [facility] Abs Eosinophils Auto 291 15 - 500 cells/uL [facility] [employer] [employer] Abs Basophils Auto 58 0 - 200 cells/uL [facility] [employer] Neutrophils Auto 68.5 % [facility] [employer] Lymphocytes Auto 23.1 % [facility] [employer] [employer] Monocytes Auto 4.8 % [facility] [employer] Eosinophils Auto 3.0 % [facility] [employer] Basophils Auto 0.6 % [facility] [employer] [employer] Blood specimen / Unknown 01/29/2025 1:22 PM EDT 01/29/2025 1:25 PM EDT Narrative [facility] - 01/30/2025 10:28 AM EDT FASTING:YES FASTING: YES Britt Villarreal PA-C LAB BLOOD ORDERABLE S Final Result [facility] [address] [place] [phone] * (ABNORMAL) Urinalysis with Microscopic (01/29/2025 1:22 PM EDT) Color YELLOW YELLOW [facility] [employer] Clarity CLOUDY(A) CLEAR [facility] [employer] Specific [place] 1.020 1.001 - 1.035 [facility] [facility] [employer] pH 6.0 5.0 - 8.0 [facility] [employer] Glucose, Urine, Random TRACE(A) NEGATIVE [facility] [employer] Bilirubin NEGATIVE NEGATIVE [facility] [employer] Ketones NEGATIVE NEGATIVE [facility] [employer] [employer] Blood 1+(A) NEGATIVE [facility] [employer] Protein 3+(A) NEGATIVE [facility] [employer] Nitrite NEGATIVE NEGATIVE [facility] [employer] Leukocyte Esterase 2+(A) NEGATIVE [facility] [employer] WBC 40-60(A) < OR = 5 /HPF [facility] RBC 0-2 < OR = 2 /HPF [facility] Squamous Epithelial Cells 20-40(A) < OR = 5 /HPF [facility] Bacteria NONE SEEN NONE SEEN /HPF [facility] [employer] Hyaline Cast 0-5(A) NONE SEEN /LPF [facility] Note [facility] Comment: This urine was analyzed for the presence of WBC, RBC, bacteria, casts, and other formed elements. Only those elements seen were reported. Urine Urine specimen obtained by clean catch procedure / Unknown 01/29/2025 1:22 PM EDT 01/29/2025 1:25 PM EDT Narrative [facility] - 01/30/2025 10:28 AM EDT FASTING:YES FASTING: YES Britt Villarreal PA-C URINE ORDERABLES Fi nal Result [facility] [address] [place] [phone] * HEPATIC FUNCTION PANEL (01/29/2025 1:22 PM EDT) Protein, Total 6.6 6.1 - 8.1 g/dL [facility] Albumin 3.7 3.6 - 5.1 g/dL [facility] Globulin 2.9 1.9 - 3.7 g/dL (calc) [facility] Albumin/Globulin Ratio 1.3 1.0 - 2.5 (calc) [facility] Bilirubin, Total 0.4 0.2 - 1.2 mg/dL [facility] Bilirubin, Direct 0.1 < OR = 0.2 mg/dL [facility] Bilirubin, Indirect 0.3 0.2 - 1.2 mg/dL (calc) [facility] Alkaline Phosphatase 123 37 - 153 U/L [facility] Aspartate Aminotrans (AST) 22 10 - 35 U/L [facility] Alanine Aminotrans (ALT) 23 6 - 29 U/L [facility] Blood specimen / Unknown 01/29/2025 1:22 PM EDT 01/29/2025 1:25 PM EDT Narrative [facility] - 01/30/2025 10:28 AM EDT FASTING:YES FASTING: YES us Britt Villarreal PA-C LAB BLOOD ORDERABLE S Final Result Performing Organization Address [facility] de Phone Number [facility] [address] [place] [phone] * (ABNORMAL) BASIC METABOLIC PANEL (01/29/2025 1:22 PM EDT) [facility] Glucose 210(H) 65 - 99 mg/dL [facility] Comment: ? Fasting reference interval For someone without known diabetes, a glucose value >125 mg/dL indicates that they may have diabetes and this should be confirmed with a follow-up test. Blood Urea Nitrogen (BUN) 32(H) 7 - 25 mg/dL [facility] Creatinine 1.84(H) 0.50 - 1.03 mg/dL [facility] Creatinine w/ eGFR 31(L) > OR = 60 mL/min/1.7 3m2 [facility] BUN/Creatinine Ratio 17 6 - 22 (calc) [facility] Sodium 135 135 - 146 mmol/L [facility] Potassium 5.3 3.5 - 5.3 mmol/L [facility] Chloride 100 98 - 110 mmol/L [facility] CO2 28 20 - 32 mmol/L [facility] Calcium 9.3 8.6 - 10.4 mg/dL [facility] Blood specimen / Unknown 01/29/2025 1:22 PM EDT 01/29/2025 1:25 PM EDT Narrative [facility] - 01/30/2025 10:28 AM EDT FASTING:YES FASTING: YES Britt Villarreal PA-C LAB BLOOD ORDERABLE S Final Result [facility] [address] [place] [phone] * LAB RESULT (01/22/2025 11:02 AM EDT) [...] metatarsal head through the talus. 3. 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 4. Achilles tendinosis. Electronically signed by: ??Isauro Perez MD ??01/19/2025 12:04 PM EDT Thank you for referring your patient to us, Isauro Perez MD [phone] (Electronically Signed - 01/19/2025 12:04) Copy: [facility] [address] [place] [address] PATIENT , ?? Narrative 01/19/2025 12:04 PM EDT Addendum: ADDENDUM #[address] and cardiac nuclear medicine (myocardial perfusion studies) imaging reports in the past 12-month period: 1 Electronically signed by: ??Isauro Perez MD ??02/06/2025 02:09 PM EDT Thank you for referring your patient to us, Isauro Perez MD [phone] (Electronically Signed - 02/06/2025 14:09) Copy: [facility] [address] [place] [address] PATIENT , ?? Original Report: EXAMINATION: [...] workstation with concurrent physician supervision (per the [facility] policy and protocol). This CT examination [...] medial cuneiform and middle cuneiform. There is szvk-vn-jyawbjvd multifocal osteoarthritis at the second through fifth TMT joints with joint space narrowing and marginal osteophytes. Quol-ab-pjxtdvzs osteoarthritis is present of the talocrural joint [...] Perez MD 02/06/2025 02:09 PM EDT RPWorkstation: [id number] Thank you for referring your patient to us, Isauro Perez MD [phone] (Electronically Signed - 02/06/2025 14:09) Copy: [facility] [address] [facility] [address] [place] [address] PATIENT , Original Report: EXAMINATION: [...] dimensional volume rendered images were [facility] work[facility] with concurrent physician supervision (per the [facility] policy and protocol). This CT examination [...] the medial cuneiformand middle cuneiform. There is dbue-za-zgsdbial multifocal osteoarthritis at the second throughfifth TMT joints with joint space narrowing and marginal osteophytes. Nkuj-as-nvgkeewt osteoarthritis is present of the talocrural joint [...] firstmetatarsal head through the talus. 3. Additional cvlw-ih-kkptgcyp multifocal osteoarthritis in the midfootand hindfoot. 4. Achilles tendinosis. Electronically signed by: Isauro Perez MD 01/19/2025 12:04 PM EDT RPWorkstation: [id number] Thank you for referring your patient to us, Isauro Perez MD [phone] (Electronically Signed - 01/19/2025 12:04) Copy: [facility] [address] [place] [address] PATIENT , Result [facility] Eladio Becker MD [facility] CT ORDERABLES Edited Resu lt - Final * XR Knee 4+ views-Bilateral (11/25/2024 12:04 PM EST) Narrative [facility] - 11/25/2024 12:04 PM EST [facility] and images reviewed by orthopedic provider. ??Any findings are documented within ambulatory encounter note on date of service. Result [facility] Eladio Becker MD [facility] DIAGNOSTIC IMAGING ORDERA BLES Final Result Performing Organization Address [facility] Co de Phone Number OAH * XR Foot 3+ views-Left (11/25/2024 11:00 AM EST) Narrative [facility] - 11/25/2024 11:00 AM EST This [facility] and images reviewed by orthopedic provider. ??Any findings are documented within ambulatory encounter note on date of service. Eladio Becker MD [facility] DIAGNOSTIC IMAGING ORDERA BLES Final Result Performing Organization Address [facility] Co de Phone Number OAH * XR Ankle 2 views-Left (11/25/2024 11:00 AM EST) Narrative [facility] - 11/25/2024 11:00 AM EST This [facility] and images reviewed by orthopedic provider. ??Any findings are documented within ambulatory encounter note on date of service. us Eladio Becker MD [facility] DIAGNOSTIC IMAGING ORDERA BLES Final Result [facility] * (ABNORMAL) Hemoglobin A1c with Estimated Average Glucose (01/07/2024 4:32 AM EDT) Hemoglobin A1C 7.3(H) <5.7 % 01/07/2024 5:20 AM EDT [facility] Comment: A1c% ? Interpretation 5.7 - 6.0 ?Increase risk of diabetes 6.1 - 6.4 ?Higher risk of diabetes > or = 6.5 ?? Consistent with diabetes Diabetes Care, 33(Supp 1):S1-S61, 2010 Estimated Average Glucose 163 mg/dL 01/07/2024 5:20 AM EDT [facility] Blood specimen (specimen) Blood specimen / Unknown 01/07/2024 4:32 AM EDT 01/07/2024 4:37 AM EDT Nas Garcia MD LAB BLOOD ORDERABLES Final Resul t Performing Organization Address [facility] Co [place] [address], [place] [address] from Last 3 Months or Most Recently Relevant to Health Maintenance Additional Health Concerns Active Problems Noted Date Diagnosed Date Autogenerated Problem 01/29/2025 Insurance [facility] OUT [facility] [place] [facility] OUT OF [facility] BLUE CROSS OUT [facility] BLUE CROSS OUT OF [facility] Advance Directives * Full Code (Latest Code Status on File) Date Activated Date Inactivated Comments 01/06/2024 5:40 PM Question Answer Comments Decision Thoroughly Discussed with: Patient * Full Code Date Activated Date Inactivated Comments 08/30/2023 12:10 PM 01/06/2024 2:18 PM Full Code Care Teams Paramedic Relationship Specialty Start Date End Date Britt Villarreal PA-C [address] [place] [address] PCP - General Internal Medicine 11/03/24
--- OUTSIDE RECORDS SUMMARY | 2025-02-16 10:31 | XMS_ITS | Encounter Summary ---
Author Organization [facility] Address [address] [place] [address] Care Team Providers Care Exhibitor Sales Name Role Phone Ranjana Villarreal PA-C Primary [...] Description 02/27/2025 9:30 AM EDT Hospital Encounter [facility] Gastroenterology Division [address] [place] [phone] Jaison Holman MD [address] [place] [address] 02/27/2025 9:30 AM EDT Appointment [facility] [address] [phone] Jaison Holman MD [address] [address] 02/27/2025 9:30 AM EDT - 02/27/2025 10:00 AM EDT Surgery [facility] Gastroenterology Division [address] [place] [phone] Jaison Holman MD [address] [phone] ENDOSCOPY UPPER 03/02/2025 7:00 AM EDT Telemedicine Clinical Support [facility] [place] [facility] [address] [place] [phone] Ranjana Villarreal PA-C 100 [place] [address] Reji Amos, RD 32 [place] [address] 03/17/2025 4:15 PM EDT Telemedicine [facility] [place] 31 [facility] [place] [facility] [address] [place] [phone] Rebecca Angel [employer] 31 [place] [address] 04/30/2025 8:30 AM EDT Evaluation [facility] 1060 [place] [phone] Dianne Mackay PA [address] [address] Jelani Hall, PT 10[address] [place], [place] [phone] 05/07/2025 9:15 AM EDT Treatment [facility] 1060 [place] [phone] Dianne Mackay PA [address] [address] Jelani Hall, PT 1060 [place] [address] 06/18/2025 11:[address] [facility] Pulmonary [place] 100 [place] [phone] Ranjana Villarreal PA-C 100 [place] [address] Maria D Hinojosa, [employer] [address] [place] [address] 07/22/2025 9:30 AM EDT Office Visit [facility] 100 [facility] [address] [place] [address] Ranjana Villarreal PA-C 100 [place] [address] Scheduled Procedures Name Priority Associated Diagnoses Date/Ti [...] documented as of this encounter Care Teams Exhibitor Sales Relationship Specialty Start Date End Date Ranjana Villarreal PA-C 100 [place] [address] PCP - General Internal Medicine 11/03/24 documented as of this encounter
--- OUTSIDE RECORDS SUMMARY | 2025-02-16 10:31 | XMS_ITS | Clinical Summary ---
Author Organization [facility] Address [address] [place] [address] Phone Care Team Providers Care Meat Market Manager Name Role Phone Joel Alegria NP Primary Care Provider Immunizations Name Administration Dates Next Due Moderna SARS-CoV-2 COVID-19, mRNA, LNP-S, preservative free 12/29/2020,12/01/2020 Surgical History Surgery Date Site/Laterality Comments CHOLECYSTECTOMY 2000 PROCEDURE: HISTORICAL CHOLECYSTECTOMY ENDOMETRIAL ABLATION PROCEDURE: MN ENDOMETRIAL ABLTJ THERMAL W/O HYSTEROSCOPIC GUID; COMMENT: done twice OTHER SURGICAL HISTORY PROCEDURE: ---- OTHER ----; COMMENT: skin graft for diabetic ulcer SECTION 03/1997 PROCEDURE: HISTORICAL DELIVERY COLONOSCOPY 06/18/2009 PROCEDURE: HISTORICAL COLONOSCOPY; COMMENT: Normal to cecum, repeat 10 years (small grade 2 internal hemorrhoids) UPPER GASTROINTESTINAL ENDOSCOPY 11/26/2001 PROCEDURE: UPPER GI ENDOSCOPY/EXAM; COMMENT: Normal, iron deficiency anemia most likely r/t a director of 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 OTHER SURGICAL HISTORY 2004 PROCEDURE: HISTORICAL [...] ED evaluation 06/29/18, referred to Dr. Ewing, [facility] wound care Managed with IV abx via PICC line through ID, eval with Dr. Harris for skin graft 08/2018 Anxiety 09/17/2018 DX:Anxiety; COMM ENT: Panic attacks Diabetic [place] [place] [facility] [place] 09/26/2018 DX:Diabetic neuropathy ([facility]) Umbilical hernia 09/26/2018 DX:Umbilical he rnia Type 2 diabetes mellitus wit h neurological manifestations ([facility] [place] [facility] 09/26/2018 DX:Type 2 diabetes mellitus with neurological manifestations ([facility]); COMMENT: Endo consult with Dr. Garces Type 2 diabetes mellitus wit h renal manifestations ([facility] [place] [facility] 01/15/2019 DX:Type 2 diabetes mellitus with renal manifestations ([facility]) Chronic gastric ulcer DX:Chronic gastric ulcer Depression DX:Depression ALIYAH on CPAP 01/15/2019 DX:ALIYAH on CPAP GERD (gastroesophageal reflux disease) 01/15/2019 DX:GERD (gastroesophageal reflux disease) Type 2 diabetes mellitus wit h vascular disease ([facility] [place] [facility]) 10/14/2012 DX:Type 2 diabetes mellitus with vascular disease ([facility]) IBS (irritable bowel syndrome) 01/15/2019 D X:IBS (irritable bowel syndrome) Carpal tunnel syndrome of left wrist 01/15/2019 DX:Carpal tunnel syndrome of left wrist Amos's esophagus 03/23/2022 DX:Amos's esophagus Hyde grade A esophagitis 03/23/2022 DX:Hyde grade A esophagitis Diabetes mellitus ([facility], [facility]) DX:Diabetes mellitus ([facility]) Hypertension DX:Hypertension Hypercholesterolemia DX:Hypercho lesterolemia Anxiety DX:Anxiety GERD (gastroesophageal reflux disease) DX:GERD (gastroesophageal reflux disease) Family History Medical History Relation Name Comments Other: Graves Disease Brother Heart failure Maternal Grandfather Stroke Other cancer Maternal Grandmother Liver Breast cancer Mother Heart failure Paternal Grandfather IA, Hy pertension Other cancer Paternal Grandmother Kidney [...] Signed Date: 08/05/2024 08:54 ET Workstation ID: [id number] Transcribed By: Self Edit Transcribed Date: 08/05/2024 [...] Signed Date: 08/05/2024 08:54 ET Workstation ID: [id number] Transcribed By: Self Edit Transcribed Date: 08/05/2024 08:44 ET us Self Referral Sppl IMG BI PROCEDURES Final Resul t from Last 3 Months or Most Recently Relevant to Health Maintenance Insurance [address] [address] ([facility]) Care Teams Meat Market Manager Relationship Specialty Start Date End Date Joel Alegria NP [address], [place] PCP - General Family Medicine 08/01/24
== END 2025-02-16 07:49 | disposition home or self-care (01) ==
LOC: HO.LAB 07:48
PROVIDERS: PCP Physician Assistant Medical; Visit Provider Nurse Practitioner Family
DX: N39.0 Urinary tract infection, site not specified (principal)
CPT/HCPCS: 51798; 81003; 87086

== ENCOUNTER 2025-02-16 07:48 | Outpatient (AMB) | payer BC, SELFPAY ==
--- OUTSIDE RECORDS SUMMARY | 2025-02-16 07:51 | XMS_ITS | Clinical Summary ---
Author Organization [facility] Address [address] [place] [address] Care Team Providers Care Briquetter Operator Name Role Phone Unavailable Primary Care [...] Mathis Personal/Family Self 1965 [address] [place] [address]
--- OUTSIDE RECORDS SUMMARY | 2025-02-16 07:51 | XMS_ITS | Encounter Summary ---
Author Organization [facility] Address [address] [place] [address] Care Team Providers Care Power Generation Technician Name Role Phone Ranjana Villarreal PA-C Primary Care Provi erika Encounter Details Date Type Department Care Team (Late st Contact Info) Description 11/20/2024 Scanned Document [address] [place] [address] Primary Care, Scan Social History [...] Upcoming Encounters Date Type Department Care Team (Latest Contact Info) Description 02/27/2025 9:30 AM EDT Hospital Encounter [facility] G[facility] [address] [place] [address], [place] [phone] Jaison Holman MD [address] [address] 02/27/2025 9:30 AM EDT Appointment [facility] [address] [place] [address] Jaison Holman MD [address] [address] 02/27/2025 9:30 AM EDT - 02/27/2025 10:00 AM EDT Surgery [facility] [address] [place] [address], [place] [phone] Jaison Holman MD [address] [phone] ENDOSCOPY UPPER 03/02/2025 7:00 AM EDT Telemedicine Clinical Support [facility] [address] [place] [phone] Ranjana Villarreal PA-C [address] [place] [address] Reji Amos, DILIP [address] [place], [place] [phone] 03/17/2025 4:15 PM EDT Telemedicine [facility] [place] 31 [facility] [address] [place] [phone] Rebecca Angel APRN 31 [place] [address] 04/30/2025 8:30 AM EDT Evaluation [facility] [address] [place] [phone] Dianne Mackay, PA [address] [address] Jelani Hall, PT [address] [place] [address] 05/07/2025 9:15 AM EDT Treatment [facility] [address] [place] [address], [place] [phone] Dianne Mackay, KENZIE [address] [address] [place] [address] [place] [address] 06/18/2025 11:20 AM EDT Consult [address] [phone] Ranjana Villarreal PA-C 100 [place] [address] Maria D Hinojosa, REFORESTATION WORKER [address] [place] [address] 07/22/2025 9:30 AM EDT Office Visit [address] [phone] Ranjana Villarreal PA-C 100 [place] [address] Scheduled Procedures Name Priority Associated Diagnoses Date/Ti me ENDOSCOPY UPPER Amos's esophagus without dysplasia Gastric polyps 02/27/2025 9:30 AM EDT documented as of this encounter Visit Diagnoses Not on filedocumented in this encounter Care Teams Power Generation Technician Relationship Specialty Start Date End Date Ranjana Villarreal PA-C [address] [place] [address] PCP - General Internal Medicine 11/03/24 documented as of this encounter
--- OUTSIDE RECORDS SUMMARY | 2025-02-16 07:51 | XMS_ITS | Clinical Summary ---
Author Organization [facility] Address [address] [place] [address] Phone Care Team Providers Care Athletic Training Internship Name Role Phone Joel Alegria NP Primary Care Provider Immunizations Name Administration Dates Next Due Moderna SARS-CoV-2 COVID-19, mRNA, LNP-S, preservative free 12/29/2020,12/01/2020 Surgical History Surgery Date Site/Laterality Comments CHOLECYSTECTOMY 2000 PROCEDURE: HISTORICAL CHOLECYSTECTOMY ENDOMETRIAL ABLATION PROCEDURE: MD ENDOMETRIAL ABLTJ THERMAL W/O HYSTEROSCOPIC GUID; COMMENT: done twice OTHER SURGICAL HISTORY PROCEDURE: ---- OTHER ----; COMMENT: skin graft for diabetic ulcer SECTION 03/1997 PROCEDURE: HISTORICAL DELIVERY COLONOSCOPY 06/18/2009 PROCEDURE: HISTORICAL COLONOSCOPY; COMMENT: Normal to cecum, repeat 10 years (small grade 2 internal hemorrhoids) UPPER GASTROINTESTINAL ENDOSCOPY 11/26/2001 PROCEDURE: UPPER GI ENDOSCOPY/EXAM; COMMENT: Normal, 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 OTHER SURGICAL HISTORY 2004 PROCEDURE: HISTORICAL [...] ED evaluation 06/29/18, referred to Dr. Ewing, [facility] wound care Managed with IV abx via PICC line through ID, eval with Dr. Harris for skin graft 08/2018 Anxiety 09/17/2018 DX:Anxiety; COMM ENT: Panic attacks Diabetic neuropathy ([facility] V24, [facility] V28) 09/26/2018 DX:Diabetic neuropathy ([facility]) Umbilical hernia 09/26/2018 DX:Umbilical he rnia Type 2 diabetes mellitus wit h neurological manifestations ([facility] V24, [facility] V28) 09/26/2018 DX:Type 2 diabetes mellitus with neurological manifestations ([facility]); COMMENT: Endo consult with Dr. Garces Type 2 diabetes mellitus wit h renal manifestations ([facility] V24, [facility] V28) 01/15/2019 DX:Type 2 diabetes mellitus with renal manifestations ([facility]) Chronic gastric ulcer DX:Chronic gastric ulcer Depression DX:Depression ALIYAH on CPAP 01/15/2019 DX:ALIYAH on CPAP GERD (gastroesophageal reflux disease) 01/15/2019 DX:GERD (gastroesophageal reflux disease) Type 2 diabetes mellitus wit h vascular disease ([facility] V24, [facility] V28) 10/14/2012 DX:Type 2 diabetes mellitus with vascular disease ([facility]) IBS (irritable bowel syndrome) 01/15/2019 D X:IBS (irritable bowel syndrome) Carpal tunnel syndrome of left wrist 01/15/2019 DX:Carpal tunnel syndrome of left wrist Amos's esophagus 03/23/2022 DX:Amos's esophagus Willard grade A esophagitis 03/23/2022 DX:Willard grade A esophagitis Diabetes mellitus ([facility] V 24, [facility] V28) DX:Diabetes mellitus ([facility]) Hypertension DX:Hypertension Hypercholesterolemia DX:Hypercho lesterolemia Anxiety DX:Anxiety GERD (gastroesophageal reflux disease) DX:GERD (gastroesophageal reflux disease) Family History Medical History Relation Name Comments Other: Graves Disease Brother Heart failure Maternal Grandfather Stroke Other cancer Maternal Grandmother Liver Breast cancer Mother Heart failure Paternal Grandfather DC, Hy pertension Other cancer Paternal Grandmother Kidney [...] Signed Date: 08/05/2024 08:54 ET Workstation ID: [id number] Transcribed By: Self Edit Transcribed Date: 08/05/2024 [...] Signed Date: 08/05/2024 08:54 ET Workstation ID: [id number] Transcribed By: Self Edit Transcribed Date: 08/05/2024 08:44 ET us Self Referral Sppl IMG BI PROCEDURES Final Resul t from Last 3 Months or Most Recently Relevant to Health Maintenance [place] [place] [address] (FORMERLY [facility], [facility]–1983) Care Teams Athletic Training Internship Relationship Specialty Start Date End Date Joel Alegria NP [address], [place] PCP - General Family Medicine 08/01/24
--- OUTSIDE RECORDS SUMMARY | 2025-02-16 07:51 | XMS_ITS | Clinical Summary ---
Author Organization [facility] Address [address] [place] [address] Care Team Providers Care Time Study Observer Name Role Phone Unavailable Primary Care Provider [...]
--- OUTSIDE RECORDS SUMMARY | 2025-02-16 07:51 | XMS_ITS | Continuity of Care Document ---
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 06/30/2024 Baqsimi One Vkow2jo/Dose Powder spray into nostril as needed for low sugar reaction 1unlitzy Bui M.D. 02/14/2024 Lant Tyixrzds108Qqtq/ML Solution Pen-Inject inject 50 units daily as directed 45ml E11Lexy Bui M.D. 10/26/2023 Mgwdfttuq90ju Tablets Take 1 Tablet By Mouth Every Day For 30 Days Lynnette Cardona MD Atorvastatin Kyworgf10pq Tablets 1 by mouth every day Unknown Amlodipine Vanfbphn1kl Tablets Take 1 Tablet (5 MG Total) By Mouth Daily. Unknown Repatha Icfbjuusn602jf/ml Solution Auto-Inject inject 1 syringe under the skin every 2 weeks Unknown Aspirin 8181mg Tablets DR 1 by mouth every day Susan Bui M.D. Hydroxyzine IIZ77cz Tablets Take 1 Tablet By Mouth Every Day as Needed Unknown Dexcom G6 SensorMisc use 1 sensor every 10 days 9units E11.42 Susan Bui M.D. Dexcom G6 SensorMisc Please See Attached For Detailed Directions Unknown Jwwalzjrgf475jc Capsules Take 2 Capsule By Mouth Three Times A Day Unknown Dexcom G6 TransmitterMisc To Use With Sensors DX E11.42 1units E11.Jared Bui M.D. Pantoprazole Abwkrb86wb Tablets DR Take 1 Tablet By Mouth Every Morning (Before Breakfast) For 360 Days. Unknown Albuterol Sulfate KPL995(90Base) mcg/Act Aerosol Take 2 Puffs By Mouth Every 4 Hours as Needed For Wheeze Unknown Ipratropium Bromide0.06% Solution Administer 2 Sprays Into Each Nostril Every 6 Hours as Needed For Rhinitis. Unknown Vishhjuafp54xb Tablets Take 1 Tablet By Mouth Every Day Unknown Hyoscyamine Sulfate0.125mg Tablets Take 1 Tablet By Mouth 4 Times Daily as Needed For Cramping Or Diarrhea For Up T Unknown Basaglar Lllppua639Utjt/ML Solution Pen-Inject Inject 55 Units Into The Skin AT Bedtime 60ml E11.42 Susan Bui M.D. Trazodone AKP645xq Tablets Take 1 Tablet By Mouth Everyday AT Bedtime Unknown Vital Signs Date Vital Result Comment 10/09/2024 [...] Inhouse Hemoglobin A1c 6.9% Gad65 Autoantibodies 08/15/2023 [facility] Gad65 Autoantibodies <5.0 1 Islet Cell Antibody 512 08/15/2023 [facility] Islet Cell Antibody 512 <7.5 2 Insulin Antibody 08/15/2023 [facility] Insulin Antibody 12 High 3 1 Reference range: 0.0 to 5.0 Unit: U/mL Test performed at [address] [address] 2 Unit: U/mL (NOTE) Reference Range: <7.5 Negative > or EQ 7.5 Positive Test performed by [employer], [address] [place] [address] 3 Unit: uU/mL (NOTE) This test is also known as insulin autoantibody or IAA. This test was developed and its performance characteristics determined by [facility]. It has not been cleared or approved by the Food and Drug Administration. Reference Range: <5.0 Negative > or EQ 5.0 Positive Test performed by [employer], [address] [place] [address] Procedures Date Code Description Status 08/10/2023 21625 Collection Of Venous Blood B y Venipuncture [...] Bui M.D. Plan of Treatment Future Appointment(s):* 04/13/2025 10:15 am - Susan Bui M.D. at Main Office 08/10/2023 - Susan Bui M.D.* E11.42 Type 2 diabetes mellitus with diabetic polyneuropathy Functional Status Description No Information Available Mental Status Description No Information Available Referrals Refer to Reason for Referral Status Appt Chip Meyer MD POSSIBLE SEIZURES Closed [address] [facility] [address] [place], [place] [id number] [phone]
--- OUTSIDE RECORDS SUMMARY | 2025-02-16 07:51 | XMS_ITS | Encounter Summary ---
Author Organization [facility] Address [address] [place] [address] Care Team Providers Care Harvesting Contractor Name Role Phone Ranjana Villarreal PA-C Primary Care Provi erika Encounter Details Date Type Department Care Team (Late st Contact Info) Description 12/25/2024 Scanned Document [facility] NEPHROLOGY SCAN Nephrology, Scan Social History Tobacco [...] Description 02/27/2025 9:30 AM EDT Hospital Encounter [facility] Gastroenterology Division [address] [place] [address], [place] [phone] Jaison Holman MD [address] [id number] 02/27/2025 9:30 AM EDT Appointment [facility] [address] [place] [address] Jaison Holman MD [address] [id number] 02/27/2025 9:30 AM EDT - 02/27/2025 10:00 AM EDT Surgery [facility] Gastroenterology Division [address] [place] [address], [place] [address] Jaison Holman MD [address] [id number] ENDOSCOPY UPPER 03/02/2025 7:00 AM EDT Telemedicine Clinical Support [facility] [place] [facility] [address] [place] [phone] Ranjana Villarreal PA-C [address] [place] [address] Reji Amos, DILIP 32 [place], [place] [phone] 03/17/2025 4:15 PM EDT Telemedicine [facility] [place] 31 [facility] [address] [place] [phone] Rebecca Angel APRN 31 [place], [place] [phone] 04/30/2025 8:30 AM EDT Evaluation [facility] [address] [facility] [phone] Dianne Mackay PA [address] [address] Jelani Hall, PT 1060 [place] [address] 05/07/2025 9:15 AM EDT Treatment [facility] [address] [place] [phone] Dianne Mackay PA [address] [address] Jelani Hall, PT 10[address] [place] [address] 06/18/2025 11:[address] [facility] Pulmonary [address] [phone] Ranjana Villarreal PA-C [address] [place] [address] Maria D Hinojosa, POLICE LIAISON [address] [place] [address] 07/22/2025 9:30 AM EDT Office Visit [address] [place] [phone] Ranjana Villarreal PA-C [address] [place] [address] Scheduled Procedures Name Priority Associated Diagnoses Date/Ti ca ENDOSCOPY UPPER Amos's esophagus without dysplasia Gastric polyps 02/27/2025 9:30 AM EDT documented as of this encounter Visit Diagnoses Not on filedocumented in this encounter Care Teams Harvesting Contractor Relationship Specialty Start Date End Date Ranjana Villarreal PA-C [address] [place] [address] PCP - General Internal Medicine 11/03/24 documented as of this encounter
--- OUTSIDE RECORDS SUMMARY | 2025-02-16 07:51 | XMS_ITS | Encounter Summary ---
Author Organization [facility] Address [address] [place] [address] Care Team Providers Care Printed Circuit Boards Plasma Etcher Name Role Phone Ranjana Villarreal PA-C Primary Care Provi erika Encounter Details Date Type Department Care Team (Latest Contact Info) Description 02/13/2025 Travel Social History Tobacco Use Types Packs/Day [...] you have a drink containing alcohol? Never 02/13/2025 Q2: How many drinks containi ng alcohol do you have on a typical day when you are drinking? Patient does not drink Q3: How often do you have si x or more drinks on one occasion? Never 02/13/2025 Comments Unknown Sex and Gender Information Value Date Recorded Sex Assigned at Female 01/06/2024 3:09 PM EDT Legal Sex Female 4:18 PM EDT Gender Identity Female 01/06/2024 3:09 PM EDT Sexual Orientation Choose not to disclose 2023 3:09 PM EDT documented as of this encounter Functional Status * Audit-C Score Answer Date of Assessment Author 0 02/13/2025 11:57 AM EDT Dulce Maria Berrios, BRISSA * Question Answer Date of Assessment Author Q1: How often do you have a drink containing alcohol? Never 02/13/2025 11:57 AM EDT Dulce Maria Berrios, BRISSA Q2: How many drinks containing alcohol do you have on a typical day when you are drinking? Patient does not drink 02/13/2025 11:57 AM EDT Dulce Maria Berrios, BRISSA Q3: How often do you have six or more drinks on one occasion? Never 02/13/2025 11:57 AM EDT Dulce Maria Berrios RN documented as of this encounter Plan of Treatment Upcoming Encounters Date Type Department Care Team (Latest Contact Info) Description 02/27/2025 9:30 AM EDT Hospital Encounter [facility] Gastroenterology Division [address] [place] [phone] Jaison Holman MD 113 [place] [address] 02/27/2025 9:30 AM EDT Appointment [facility] [address] [phone] Jaison Holman MD [address] [address] 02/27/2025 9:30 AM EDT - 02/27/2025 10:00 AM EDT Surgery [facility] Gastroenterology Division [address] [place] [phone] Jaison Holman MD [address] [id number] ENDOSCOPY UPPER 03/02/2025 7:00 AM EDT Telemedicine Clinical Support [facility] [place] [facility] [address] [place] [phone] Ranjana Villarreal PA-C 100 [place] [address] Reji Amos, RD 32 [place] [address] 03/17/2025 4:15 PM EDT Telemedicine [facility] Bone [facility] [place] [address] [facility] [address] [place] [phone] Rebecca Angel FLUX PLANT OPERATOR 31 [place] [address] 04/30/2025 8:30 AM EDT Evaluation [facility] [address] [place] [phone] Dianne Mackay PA [address] [address] Jelani Hall, PT 10[address] [place], [place] [phone] 05/07/2025 9:15 AM EDT Treatment [facility] [address] [place] [phone] Dianne Mackay PA [address] [address] Jelani Hall, PT 1060 [place] [address] 06/18/2025 11:20 AM EDT Consult [facility] Pulmonary [place] 100 [place] [phone] Ranjana Villarreal PA-C 100 [place] [address] Maria D Hinojosa, FLUX PLANT OPERATOR [address] [place] [address] 07/22/2025 9:30 AM EDT Office Visit [facility] [address] [facility] [address] [place] [phone] Ranjana Villarreal PA-C 100 [place] [address] Scheduled Procedures Name Priority Associated Diagnoses Date/Ti me ENDOSCOPY UPPER Amos's esophagus without dysplasia Gastric polyps 02/27/2025 9:30 AM EDT documented as of this encounter Goals Goal Patient Goal Type Associated Problems Recent Progress Patient-Stated? Author Autogenerat ed Goal Care Plan Autogenerated Problem No Eladia Noguera documented as of this encounter Visit Diagnoses Not on filedocumented in this encounter Additional Health Concerns Active Problems Noted Date Diagnosed Date Autogenerated Problem 01/29/2025 documented as of this encounter Care Teams Printed Circuit Boards Plasma Etcher Relationship Specialty Start Date End Date Ranjana Villarreal PA-C [address] [place] [address] PCP - General Internal Medicine 11/03/24 documented as of this encounter
--- OUTSIDE RECORDS SUMMARY | 2025-02-16 07:51 | XMS_ITS | Encounter Summary ---
Author Organization [facility] Address [address] [place] [address] Care Team Providers Care Quail Farmer Name Role Phone Ranjana Villarreal PA-C Primary Care Provi erika Encounter Details Date Type Department Care Team (Late st Contact Info) Description 12/09/2024 Scanned Document [facility] PULMONOLGY SCAN Pulmonary, Scan Social History Tobacco [...] Description 02/27/2025 9:30 AM EDT Hospital Encounter [facility] Gastroenterology Division [address] [place] [address], [place] [phone] Jaison Holman MD [address] [id number] 02/27/2025 9:30 AM EDT Appointment [facility] [address] [place] [address] Jaison Holman MD [address] [id number] 02/27/2025 9:30 AM EDT - 02/27/2025 10:00 AM EDT Surgery [facility] Gastroenterology Division [address] [place] [address], [place] [address] Jaison Holman MD [address] [id number] ENDOSCOPY UPPER 03/02/2025 7:00 AM EDT Telemedicine Clinical Support [facility] [place] [facility] [address] [place] [phone] Ranjana Villarreal PA-C [address] [place] [address] Reji Amos, DILIP 32 [place], [place] [phone] 03/17/2025 4:15 PM EDT Telemedicine [facility] [place] 31 [facility] [address] [place] [phone] Rebecca Angel APRN 31 [place], [place] [phone] 04/30/2025 8:30 AM EDT Evaluation [facility] [address] [place] [phone] Dianne Mackay PA [address] [address] Jelani Hall, PT 1060 [place] [address] 05/07/2025 9:15 AM EDT Treatment [facility] 1060 [place] [phone] Dianne Mackay PA [address] [address] Jelani Hall, PT 1060 [place] [address] 06/18/2025 11:20 AM EDT Consult [facility] Pulmonary [address] [phone] Ranjana Villarreal PA-C 100 [place] [address] Maria D Hinojosa, INSTRUMENTATION TECH [address]99 [place] [address] 07/22/2025 9:30 AM EDT Office Visit [address] [place] [phone] Ranjana Villarreal PA-C [address] [place] [address] Scheduled Procedures Name Priority Associated Diagnoses Date/Ti ma ENDOSCOPY UPPER Amos's esophagus without dysplasia Gastric polyps 02/27/2025 9:30 AM EDT documented as of this encounter Visit Diagnoses Not on filedocumented in this encounter Care Teams Quail Farmer Relationship Specialty Start Date End Date Ranjana Villarreal PA-C [address] [place] [address] PCP - General Internal Medicine 11/03/24 documented as of this encounter
--- OUTSIDE RECORDS SUMMARY | 2025-02-16 07:51 | XMS_ITS | Clinical Summary ---
Author Organization [facility] Address [address] [place] [address] Care Team Providers Care Barrel Endshake Adjuster Name Role Phone Britt Villarreal PA-C Primary Care Provi erika Allergies Active Allergy Reactions Criticality Noted Date Comments Ceftriaxone Rash/Dermatitis Low 06/13/2023 Metformin Diarrhea Low 01/06/2024 Medications lisinopril (PRINIVIL,ZeSTR IL) 10 MG tablet Take 1 tablet (10 mg total) by mouth nightly. Active insulin glargine (insulin glargine, BASAGLAR KWIKPEN,) 100 units/mL prefilled pen injection Inject 50 Units under the skin nightly. Active traZODone (DESYREL) 100 MG tablet Take 1 tablet (100 mg total) by mouth nightly. Active atorvastatin (LIPITOR) 80 MG tablet Take 1 tablet (80 mg total) by mouth every morning. Active gabapentin (NEURONTIN) 300 MG capsule Take [...] 1 tablet (81 mg total) by mouth every morning. Active albuterol (PROVENTIL HFA; VENTOLIN HFA) 108 (90 Base) MCG/ACT inhaler INHALE 2 PUFFS EVERY 4 TO 6 HOURS NEEDED FOR SHORTNESS OF BREATH OR FOR WHEEZE 12/29/19 24 Active ipratropium (ATROVENT) 0.03 % nasal spray as needed. 12/31/19 24 Active ipratropium-alb uterol (DUONEB) 0.5-2.5 mg/3 mL nebulizer solution 3 ML INHALED EVERY 6 HOURS NEEDED FOR WHEEZING 12/05/19 24 Active amLODIPine (NORVASC) 5 MG tabletIndicatio ns:Occipital neuralgia of left side Take 1 tablet (5 mg total) by mouth daily. 30 tablet 01/09/20 24 Active Additional Information Patient taking differently:5 mg OralEvery morning, Reason: Other, Informant: Self, Reported on 02/13/2025 Continuous Glucose Sensor (Dexcom G6 Sensor) [facility] USE 1 SENSOR EVERY 10 DAYS 06/25/20 24 Active Continuous Glucose Transmitter (Dexcom G6 Transmitter) [facility] 1 DEVICE BY DOES NOT APPLY ROUTE SEE ADMIN INSTRUCTIONS. CHANGE TRANSMITTER EVERY 3 MONTHS. 05/15/20 24 Active primidone (MYSOLINE) 50 MG tablet Take 1 tablet (50 mg total) by mouth nightly. 07/24/20 24 Active estradiol (ESTRACE) 0.01 % vaginal cream APPLY PEA-SIZED AMOUNT TO URETHRA DAILY X 1 MONTH THEN THREE DAYS A WEEK THEREAFTER 11/10/19 25 Active hydroCHLOROthia zide (MICROZIDE) 12.5 MG capsule Take 1 capsule (12.5 mg total) by mouth every morning. 12/25/19 25 Active naltrexone (REVIA) 50 MG tablet Take 1 tablet (50 mg total) by mouth every morning. 12/24/19 25 Active PANTOprazole (PROTONIX) 40 MG EC tabletIndicatio ns:Amos's esophagus without dysplasia Take 1 tablet (40 mg total) by mouth daily. 90 tablet 3 01/23/20 25 Active Additional Information Patient taking differently:40 mg OralEvery morning, Reason: Other, Informant: Self, Reported on 02/13/2025 budesonide-form oterol (SYMBICORT) 160-4.5 MCG/ACT inhaler Inhale 2 puffs twice daily (every 12 hours). 01/13/20 25 Active Multiple Vitamin tablet Take 1 tablet by mouth every morning. Active acetaminophen (TYLENOL) 500 MG tablet Take 1 tablet (500 mg total) by mouth 4 times daily (every 6 hours) as needed for mild pain. Active PANTOprazole (PROTONIX) 20 MG tablet Take 2 tablets (40 mg total) by mouth daily. 025 Discontinued (Alternate therapy) fluticasone-bennie meterol 100-50 mcg/inh diskus inhaler Inhale 1 puff 2 (two) times a day. 025 Discontinued (Discontinue d by Another Clinician - No E-Cancel/No AVS) nitrofurantoin monohydrate (MACROBID) 100 MG capsule Take 1 capsule (100 mg total) by mouth 2 (two) times a day with meals. Dispense generic equivalent of MACROBID 025 Discontinued (Therapy completed) fluconazole (diFLUcan) 150 MG tabletIndicatio ns:Yeast infection Take 1 tablet (150 mg total) by mouth once. 1 tablet 01/29/20 25 025 Active Problems Problem Noted Date Diagnosed Date Stage 3 chronic kidney disease 01/28/2025 Assessment & Plan (01/28/2025 5:13 PM EDT): Patient has history of chronic kidney disease and is following with nephrology. Creatinine is around 1.4-1.6. Patient's last H&H back in December 2023 was 10.7/31.7. I do not have any new lab work although patient states she is still anemic with unknown etiology. I will recheck a CBC with iron studies and B12 and folic acid labs as well. Patient states that she used to take B12 injections in the past. She has not been on any B12 supplementation in quite some time. Full incontinence of feces 01/22/2025 Assessment & Plan (01/22/2025 11:16 AM EDT): Continue fiber supplementation Discussed increasing to BID dosing Will send pt for evaluation of biofeedback- Edu Kerr. Gastric polyps 01/22/2025 Assessment & Plan (01/22/2025 [...] Will ask for records EGD per above Primary insomnia 11/03/2024 History of COVID-19 11/03/2024 [...] Handout provided. Follow clinically. Primary hypertension 11/03/2024 Assessment & Plan (01/28/2025 5:13 PM EDT): Compliant with blood pressure medications. Blood pressure has been good. Chlorothiazide 12.5 mg was added by nephrology. Type 2 diabetes mellitus wit hout complication, [...] Problem Noted Date Diagnosed Date Resolved Date Dyspnea due to COVID-19 01/01/2025 05/0 01/2025 Mixed anxiety depressive disorder 11/03/2024 11/03/2024 Sleep-disordered breathing 11/03/2024 0 11/03/2024 History of non-ST elevation myocardial infarction (NSTEMI) 08/10/2023 11/03/2024 Community acquired pneumonia 07/18/2023 11/03/2024 Orthostatic hypotension 07/18/2023 02/0 11/2024 Encounters Date Type Department Care Team Description 02/13/2025 Travel 02/02/2025 Orders Only [address] [place] [address] Britt Villarreal PA-C Primary hypertension (Primary Dx) 01/29/2025 Telephone [facility] [address] [facility] [address] [place] [phone] Aileen Hyman 01/29/[address] [phone] Aileen Hyman 01/28/2025 1:30 PM EDT Office Visit [address] [phone] Britt Villarreal PA-C Yeast infection (Primary Dx); Primary hypertension; Anemia, unspecified type; Stage 3 chronic kidney disease, unspecified whether stage 3a or 3b CKD (HCC); Bilateral leg edema; Type 2 diabetes mellitus without complication, with long-term current use of insulin (HCC); Other hyperlipidemia 01/28/2025 7:00 AM EDT Telemedicine Clinical Support [facility] [place] [facility] [address] [place] [phone] Britt Villarreal PA-C Barrett, Christopher, RD Type 2 diabetes mellitus without complication, with long-term current use of insulin (HCC) (Primary Dx); Morbid obesity (HCC) 01/28/2025 Travel 01/27/2025 Orders Only [facility] [place] [address] Pulmonary, Scan 01/23/[address] [phone] Aileen Hyman 01/23/2025 Orders Only [address] [phone] Aileen Hyman 01/22/2025 10:30 AM EDT Consult [address] [phone] Dianne Mackay PA Full incontinence of feces (Primary Dx); Amos's esophagus without dysplasia; Gastric polyps; Gastroesophageal reflux disease without esophagitis; Irritable bowel syndrome with both constipation and diarrhea; Colon cancer screening; Esophageal dysphagia 01/22/2025 Travel 01/01/2025 1:00 PM EDT Office Visit [address] [phone] Britt Villarreal PA-C Morbid obesity (HCC) (Primary Dx); Snoring; Apnea; Dyspnea due to COVID-19; Primary hypertension 01/01/2025 Travel 12/29/2024 7:00 AM EDT Telemedicine Clinical Support [facility] [address] [facility] 1st [place] [phone] Britt Villarreal PA-C Barrett, Christopher, RD Morbid obesity (HCC) (Primary Dx); Type 2 diabetes mellitus without complication, with long-term current use of insulin (HCC) 12/29/2024 Travel 12/25/2024 Scanned Document [facility] NEPHROLOGY SCAN Nephrology, Scan 12/15/2024 3:00 PM EDT Consult [address] [phone] Eladio Becker MD Perez, Cristina, APRN Morbid obesity (HCC) (Primary Dx) 12/15/2024 Travel 12/09/2024 Scanned Document [facility] PULMONOLGY SCAN Pulmonary, Scan 12/02/[address] [place] [address] Rebecca Angel APRN 11/25/2024 11:55 AM EST Ancillary Procedure [facility] [address] [address] 11/25/2024 10:45 AM EST Ancillary [facility] [address] [address] 11/25/2024 10:00 AM EST Consult [facility] [address] [address] Eladio Becker MD Pain in both knees, unspecified chronicity (Primary Dx); Pain in left ankle and joints of left foot; Morbid obesity (HCC) 11/20/2024 Scanned Document [facility] [address] [phone] Primary Care, Scan from Last 3 Months Social History Tobacco [...] Sign Reading Time Taken Comments Blood Pressure 130/76 01/28/2025 1:26 PM EDT Pulse 91 01/28/2025 1:26 PM EDT Temperature 36.3 ??C (97.3 ??F) 01/28/2025 1:26 PM ED T Respiratory Rate 17 01/28/2025 1:26 PM EDT Oxygen Saturation 94% 01/28/2025 1:26 PM EDT Inhaled Oxygen Concentration - - Weight 127 kg (280 lb) 02/13/2025 11:50 AM EDT Height 165.1 cm (5' 5 ) 02/13/2025 11:50 AM EDT Body Mass Index 46.59 02/13/2025 11:50 AM EDT Plan of Treatment Upcoming Encounters Date Type Department Care Team (Latest Contact Info) Description 02/27/2025 9:30 AM EDT Hospital Encounter [facility] [address] [place] [phone] Jaison Holman MD [address] [address] 02/27/2025 9:30 AM EDT Appointment [facility] [address] [place] [address] Jaison Holman MD [address] [phone] 02/27/2025 9:30 AM EDT - 02/27/2025 10:00 AM EDT Surgery [facility] [address] [place] [phone] Jaison Holman MD [address] [phone] ENDOSCOPY UPPER 03/02/2025 7:00 AM EDT Telemedicine Clinical Support [facility] [place] [facility] [address] [place] [phone] Britt Villarreal PA-C [address] [place] [address] [place] [phone] 03/17/2025 4:15 PM EDT Telemedicine [facility] [place] 31 [facility] [address] [place] [phone] Rebecca Angel APRN 31 [place] [address] 04/30/2025 8:30 AM EDT Evaluation [phone] [place] [phone] Dianne Mackay, KENZIE 113 [facility] [address] [place] [address] Jelani Hall, PT 1060 [facility]], [place] [address] 05/07/2025 9:15 AM EDT Treatment [facility] [address] [facility]Note [address]], [place] [phone] Dianne Mackay PA 113 [facility] [address] [place] [address] Jelani Hall, PT 1060 [facility]], [place] [address] 06/18/2025 11:20 AM EDT Consult [facility] Pulmonary [place] [address] [place] [address] Britt Villarreal PA-C 100 [place] [address] Maria D Hinojosa, TRUCK TECHNICIAN [address] [place] [address] 07/22/2025 9:30 AM EDT Office Visit [facility] 100 [facility] [address] [place] [phone] Britt Villarreal PA-C 100 [place] [address] Scheduled Procedures Name Priority Associated Diagnoses Date/Ti me ENDOSCOPY UPPER Amos's esophagus without dysplasia Gastric polyps 02/27/2025 9:30 AM EDT Health Maintenance Due Date Last Done Comments Hepatitis C Virus Screening 1966 Foot Exam 1976 Ophthalmology Exam 1976 HIV Screening 1979 Microalbumin/Creatinine Rati o Urine 1984 Physical 1984 DTaP/Tdap/Td Vaccines (1 - Tdap) 1985 Hepatitis B Vaccines (1 of 3 - 19+ 3-dose series) 1985 Pneumococcal Vaccines 50+ (1 of 2 - PCV) 1985 Pap Smear (Ages 21-65) 1987 Mammogram 2006 Colonoscopy 2011 Zoster (Shingles) Vaccine (1 of 2) 2016 Hemoglobin A1C 07/08/2024 01/07/2024 Influenza Vaccine 05/01/2025 07/18/2023, , 08/01/2016, Additional history exists Creatinine with GFR 01/29/2026 01/29/2025, 01/07/2024, 01/06/2024 Lipid Panel 01/29/2026 01/29/2025 COVID-19 Vaccine Completed 06/13/2024, 01/2021, 12/29/2020, Additional history exists Goals Goal Patient Goal Type Associated Problems Recent Progress Patient-Stated? Author Autogenerat ed Goal Care Plan Autogenerated Problem No Eladia [employer] Implanted Type Area Wax Cutter Device Identifier Shelf Expiration Date Model / Serial / Lot Nail/Dayron Nail/Dayron Foot Description:Charcot's and pl ate Procedures Procedure Name Priority Date/Time Associated Diagnosis Comments VITAMIN B12 AND FOLATE Routine 01/29/2025 1:22 PM EDT Other hyperlipidemia Anemia, unspecified type IRON, TIBC, AND FERRITIN PANEL Routine 01/29/2025 1:22 PM EDT Type 2 diabetes mellitus without complication, with long-term current use of insulin (HCC) Primary hypertension Other hyperlipidemia Anemia, unspecified type Bilateral leg edema URINALYSIS WITH MICROSCOPIC Routine 01/29/2025 1:22 PM EDT Type 2 diabetes mellitus without complication, with long-term current use of insulin (HCC) Primary hypertension Other hyperlipidemia Anemia, unspecified type Bilateral leg edema LIPID PANEL WITH NONHDL Routine 01/29/2025 1:22 PM EDT Type 2 diabetes mellitus without complication, with long-term current use of insulin (HCC) Primary hypertension Other hyperlipidemia Anemia, unspecified type Bilateral leg edema TSH REFLEX TO FREE T4 Routine 01/29/2025 1:22 PM EDT Type 2 diabetes mellitus without complication, with long-term current use of insulin (HCC) Primary hypertension Other hyperlipidemia Anemia, unspecified type Bilateral leg edema HEPATIC FUNCTION PANEL Routine 01/29/2025 1:22 PM EDT Type 2 diabetes mellitus without complication, with long-term current use of insulin (HCC) Primary hypertension Other hyperlipidemia Anemia, unspecified type Bilateral leg edema BASIC METABOLIC PANEL Routine 01/29/2025 1:22 PM EDT Type 2 diabetes mellitus without complication, with long-term current use of insulin (HCC) Primary hypertension Other hyperlipidemia Anemia, unspecified type Bilateral leg edema COMPLETE BLOOD COUNT, WITH DIFFERENTIAL Routine 01/29/2025 1:22 PM EDT Type 2 diabetes mellitus without complication, with long-term current use of insulin (HCC) Primary hypertension Other hyperlipidemia Anemia, unspecified type Bilateral leg edema LAB RESULT Routine 01/22/2025 11:02 AM EDT IMAGING-SCAN Routine 01/22/2025 10:[address] ANKLE W/O CONTRAST-LEFT Routine 01/19/2025 8:08 [...] AVERAGE GLUCOSE STAT 01/07/2024 4:32 AM EDT from Last 3 Months or Most Recently Relevant to Health Maintenance Results * Iron, TIBC, and Ferritin Panel (01/29/2025 1:22 PM EDT) Pathologist [facility] Iron 53 45 - 160 mcg/dL [facility] Total Iron Binding Capacity 288 250 - 450 mcg/dL (calc) [facility] Iron Saturation 18 16 - 45 % (calc) [facility] Ferritin 57 16 - 232 ng/mL [facility] Blood Blood specimen / Unknown 01/29/2025 1:22 PM EDT 01/29/2025 1:25 PM EDT Narrative [facility] - 01/30/2025 10:28 AM EDT FASTING:YES FASTING: YES Britt Villarreal PA-C LAB BLOOD ORDERABLE S Final Result Performing Organization Address [facility]/ZIP Co de Phone Number [employer] [address] [place] [phone] * TSH REFLEX FREE T4 (01/29/2025 1:22 PM EDT) [facility] TSH reflex Free T4 1.19 0.40 - 4.50 mIU/L [facility] Blood specimen / Unknown 01/29/2025 1:22 PM EDT 01/29/2025 1:25 PM EDT Narrative [facility] - 01/30/2025 10:28 AM EDT FASTING:YES FASTING: YES Britt Villarreal PA-C LAB BLOOD ORDERABLE S Final Result Performing Organization Address [facility]/ZIP Co de Phone Number [employer] [address] [place] [phone] * (ABNORMAL) Lipid panel with nonHDL (01/29/2025 1:22 PM EDT) [facility] Cholesterol, Total 124 <200 mg/dL [facility] Cholesterol, HDL 47(L) > OR = 50 mg/dL [facility] Triglycerides 153(H) <150 mg/dL [facility] LDL Cholesterol 53 mg/dL (calc) [facility] Comment: Reference range: <100 Desirable range <100 mg/dL for primary prevention; ?? <70 mg/dL for patients with CHD or diabetic patients with > or = 2 CHD risk factors. LDL-C is now calculated using the Kush calculation, which is a validated novel method providing better accuracy than the Friedewald equation in the estimation of LDL-C. Sudarshan SS et al. BRITTNEE. 2013;310(19): 8514-6770 (http://education.[employer]/faq/TVL728) Cholesterol/HDL Ratio 2.6 <5.0 (calc) [facility] Non HDL Chol. (LDL+VLDL) 77 <130 mg/dL (calc) [facility] Comment: For patients with diabetes plus 1 major ASCVD risk factor, treating to a non-HDL-C goal of <100 mg/dL (LDL-C of <70 mg/dL) is considered a therapeutic option. Blood Blood specimen / Unknown 01/29/2025 1:22 PM EDT 01/29/2025 1:25 PM EDT Narrative [facility] - 01/30/2025 10:28 AM EDT FASTING:YES FASTING: YES us Britt Villarreal PA-C LAB BLOOD ORDERABLE S Final Result [employer] [address] [place] [phone] * Vitamin B12 and Folate (01/29/2025 1:22 PM EDT) Vitamin B12 470 200 - 1,100 pg/mL [facility] Folate, Serum 13.8 ng/mL [facility] Comment: ? Reference Range ? Low: ? <3.4 ? Borderline: ?3.4-5.4 ? Normal: ?>5.4 Blood Blood specimen / Unknown 01/29/2025 1:22 PM EDT 01/29/2025 1:25 PM EDT Narrative [facility] - 01/30/2025 10:28 AM EDT FASTING:YES FASTING: YES Britt Villarreal PA-C LAB BLOOD ORDERABLE S Final Result [facility] [address] [place] [phone] * (ABNORMAL) Complete Blood Count, with Differential (01/29/2025 1:22 PM EDT) Pathologist [facility] White Blood Cell Count 9.7 3.8 - 10.8 Thousand/ uL [facility] Red Blood Cell Count 4.05 3.80 - 5.10 Million/u L [facility] Hemoglobin 11.1(L) 11.7 - 15.5 g/dL [email or web address] Hematocrit 35.1 35.0 - 45.0 % [email or web address] MCV 86.7 80.0 - 100.0 fL [facility] MCH 27.4 27.0 - 33.0 pg [facility] MCHC 31.6(L) 32.0 - 36.0 g/dL [facility] Comment: For adults, a slight decrease in the calculated MCHC value (in the range of 30 to 32 g/dL) is most likely not clinically significant; however, it should be interpreted with caution in correlation with other red cell parameters and the patient's clinical condition. RDW 13.4 11.0 - 15.0 % [facility] Platelet Count 262 140 - 400 Thousand/ uL [facility] MPV 9.8 7.5 - 12.5 fL [facility] Abs Neutrophils Auto 6,645 1,500 - 7,800 cells/uL [facility] Abs Lymphocytes Auto 2,241 850 - 3,900 cells/uL [facility] Abs Monocytes Auto 466 200 - 950 cells/uL [facility] Abs Eosinophils Auto 291 15 - 500 cells/uL [facility] Abs Basophils Auto 58 0 - 200 cells/uL [facility] Neutrophils Auto 68.5 % [facility] Lymphocytes Auto 23.1 % [facility] Monocytes Auto 4.8 % [facility] Eosinophils Auto 3.0 % [facility] Basophils Auto 0.6 % [facility] Blood specimen / Unknown 01/29/2025 1:22 PM EDT 01/29/2025 1:25 PM EDT Narrative [facility] - 01/30/2025 10:28 AM EDT FASTING:YES FASTING: YES Britt Villarreal PA-C LAB BLOOD ORDERABLE S Final Result [facility] [address] [place] [phone] * (ABNORMAL) Urinalysis with Microscopic (01/29/2025 1:22 PM EDT) Color YELLOW YELLOW [facility] Clarity CLOUDY(A) CLEAR [facility] Specific [place] 1.020 1.001 - 1.035 [facility] pH 6.0 5.0 - 8.0 [facility] Glucose, Urine, Random TRACE(A) NEGATIVE [facility] Bilirubin NEGATIVE NEGATIVE [facility] Ketones NEGATIVE NEGATIVE [facility] Blood 1+(A) NEGATIVE [facility] Protein 3+(A) NEGATIVE [facility] Nitrite NEGATIVE NEGATIVE [facility] Leukocyte Esterase 2+(A) NEGATIVE [facility] WBC 40-60(A) < OR = 5 /HPF [facility] RBC 0-2 < OR = 2 /HPF [facility] Squamous Epithelial Cells 20-40(A) < OR = 5 /HPF [facility] Bacteria NONE SEEN NONE SEEN /HPF [facility] Hyaline Cast 0-5(A) NONE SEEN /LPF [facility] Note [facility] Comment: This urine was analyzed for the presence of WBC, RBC, bacteria, casts, and other formed elements. Only those elements seen were reported. Urine Urine specimen obtained by clean catch procedure / Unknown 01/29/2025 1:22 PM EDT 01/29/2025 1:25 PM EDT Narrative [facility] - 01/30/2025 10:28 AM EDT FASTING:YES FASTING: YES Britt Villarreal PA-C URINE ORDERABLES Fi nal Result [email or web address] [address] [place] [phone] * HEPATIC FUNCTION PANEL (01/29/2025 1:22 PM EDT) Protein, Total 6.6 6.1 - 8.1 g/dL [facility] Albumin 3.7 3.6 - 5.1 g/dL [facility] Globulin 2.9 1.9 - 3.7 g/dL (calc) [facility] Albumin/Globulin Ratio 1.3 1.0 - 2.5 (calc) [facility] Bilirubin, Total 0.4 0.2 - 1.2 mg/dL [facility] Bilirubin, Direct 0.1 < OR = 0.2 mg/dL [facility] Bilirubin, Indirect 0.3 0.2 - 1.2 mg/dL (calc) [facility] Alkaline Phosphatase 123 37 - 153 U/L [facility] Aspartate Aminotrans (AST) 22 10 - 35 U/L [facility] Alanine Aminotrans (ALT) 23 6 - 29 U/L [facility] Blood specimen / Unknown 01/29/2025 1:22 PM EDT 01/29/2025 1:25 PM EDT Narrative [facility] - 01/30/2025 10:28 AM EDT FASTING:YES FASTING: YES us Britt Villarreal PA-C LAB BLOOD ORDERABLE S Final Result Performing Organization Address [facility] de Phone Number [facility] [address] [place] [phone] * (ABNORMAL) BASIC METABOLIC PANEL (01/29/2025 1:22 PM EDT) [facility] Glucose 210(H) 65 - 99 mg/dL [facility] Comment: ? Fasting reference interval For someone without known diabetes, a glucose value >125 mg/dL indicates that they may have diabetes and this should be confirmed with a follow-up test. Blood Urea Nitrogen (BUN) 32(H) 7 - 25 mg/dL [facility] Creatinine 1.84(H) 0.50 - 1.03 mg/dL [facility] Creatinine w/ eGFR 31(L) > OR = 60 mL/min/1.7 3m2 [facility] BUN/Creatinine Ratio 17 6 - 22 (calc) [facility] Sodium 135 135 - 146 mmol/L [facility] Potassium 5.3 3.5 - 5.3 mmol/L [facility] Chloride 100 98 - 110 mmol/L [facility] CO2 28 20 - 32 mmol/L [facility] Calcium 9.3 8.6 - 10.4 mg/dL [facility] Blood specimen / Unknown 01/29/2025 1:22 PM EDT 01/29/2025 1:25 PM EDT Narrative [facility] - 01/30/2025 10:28 AM EDT FASTING:YES FASTING: YES Britt Villarreal PA-C LAB BLOOD ORDERABLE S Final Result [email or web address] [address] [place] [phone] * LAB RESULT (01/22/2025 11:02 AM EDT) us Scan Primary Care HX AMB PROCEDURES Edited Resul t - Final * IMAGING-SCAN (01/22/2025 10:25 AM EDT) Anatomical Region Laterality Modality Other us Scan Pulmonary HX AMB PROCEDURES Edited Result - Final * CT Ankle w/o contrast-Left (01/19/2025 8:08 [...] metatarsal head through the talus. 3. 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 4. Achilles tendinosis. Electronically signed by: ??Isauro Perez MD ??01/19/2025 12:04 PM EDT Thank you for referring your patient to us, Isauro Perez MD [phone] (Electronically Signed - 01/19/2025 12:04) Copy: BRITT ESPINO [facility] [address] [place] [address] PATIENT , ?? Narrative 01/19/2025 12:04 PM EDT Addendum: ADDENDUM #[address] and cardiac nuclear medicine (myocardial perfusion studies) imaging reports in the past 12-month period: 1 Electronically signed by: ??Isauro Perez MD ??02/06/2025 02:09 PM EDT Thank you for referring your patient to us, Isauro Perez MD [id number] (Electronically Signed - 02/06/2025 14:09) Copy: BRITT ESPINO [facility] [address] [place] [address] PATIENT , ?? Original Report: EXAMINATION: CT ANKLE WITHOUT CONTRAST, LEFT CLINICAL [...] workstation with concurrent physician supervision (per the [facility] policy and protocol). This CT examination [...] medial cuneiform and middle cuneiform. There is qswb-pk-btmmoqlq multifocal osteoarthritis at the second through fifth TMT joints with joint space narrowing and marginal osteophytes. Uowe-ps-rgglywfp osteoarthritis is present of the talocrural joint [...] effusions. Procedure Note Isauro Perez MD - 02/06/2025 Addendum: ADDENDUM #[address] and cardiac nuclear medicine (myocardial perfusionstudies) imaging reports in the past 12-month period: 1 Electronically signed by: Isauro Perez MD 02/06/2025 02:09 PM EDT RPWorkstation: [id number] Thank you for referring your patient to us, Isauro Perez MD [id number] (Electronically Signed - 02/06/2025 14:09) Copy: BRITT ESPINO [facility] [address] [facility] [address] [place] [address] PATIENT , Original Report: EXAMINATION: CT ANKLE WITHOUT CONTRAST, LEFT CLINICAL [...] dimensional volume rendered images [facility] with concurrent physician supervision (per the [facility] policy and protocol). This CT examination [...] the medial cuneiformand middle cuneiform. There is nlfh-vj-lsjpukdo multifocal osteoarthritis at the second throughfifth TMT joints with joint space narrowing and marginal osteophytes. Buvs-ac-pwpommbo osteoarthritis is present of the talocrural joint [...] firstmetatarsal head through the talus. 3. Additional eqyw-cr-efhtuofx multifocal osteoarthritis in the midfootand hindfoot. 4. Achilles tendinosis. Electronically signed by: Isauro Perez MD 01/19/2025 12:04 PM EDT RPWorkstation: [id number] Thank you for referring your patient to us, Isauro Perez MD [id number] (Electronically Signed - 01/19/2025 12:04) Copy: BRITT ESPINO [facility] [address] [place] [address] PATIENT , Result [facility] Eladio Becker MD [facility] ORDERABLES Edited Resu lt - Final * XR Knee 4+ views-Bilateral (11/25/2024 12:04 PM EST) Narrative [facility] - 11/25/2024 12:04 PM EST This exam was performed in office at [facility] and images reviewed by orthopedic provider. ??Any findings are documented within ambulatory encounter note on date of service. Result [facility] Eladio Becker MD [facility] DIAGNOSTIC IMAGING ORDERA BLES Final Result Performing Organization Address [facility] Co de Phone Number OAH * XR Foot 3+ views-Left (11/25/2024 11:00 AM EST) Narrative [facility] - 11/25/2024 11:00 AM EST This exam was performed in office at [facility] and images reviewed by orthopedic provider. ??Any findings are documented within ambulatory encounter note on date of service. Eladio Becker MD [facility] DIAGNOSTIC IMAGING ORDERA BLES Final Result Performing Organization Address [facility] Co de Phone Number OAH * XR Ankle 2 views-Left (11/25/2024 11:00 AM EST) Narrative [facility] - 11/25/2024 11:00 AM EST This exam was performed in office at [facility] and images reviewed by orthopedic provider. ??Any findings are documented within ambulatory encounter note on date of service. us Eladio Becker MD IMG DIAGNOSTIC IMAGING ORDERA BLES Final Result OAH * (ABNORMAL) Hemoglobin A1c with Estimated Average Glucose (01/07/2024 4:32 AM EDT) Hemoglobin A1C 7.3(H) <5.7 % 01/07/2024 5:20 AM EDT [facility] Comment: A1c% ? Interpretation 5.7 - 6.0 ?Increase risk of diabetes 6.1 - 6.4 ?Higher risk of diabetes > or = 6.5 ?? Consistent with diabetes Diabetes Care, 33(Supp 1):S1-S61, 2010 Estimated Average Glucose 163 mg/dL 01/07/2024 5:20 AM EDT [facility] Blood specimen (specimen) Blood specimen / Unknown 01/07/2024 4:32 AM EDT 01/07/2024 4:37 AM EDT Nas Garcia MD LAB BLOOD ORDERABLES Final Resul t Performing Organization Address [facility] [place] [address], [place] [address] from Last 3 Months or Most Recently Relevant to Health Maintenance Additional Health Concerns Active Problems Noted Date Diagnosed Date Autogenerated Problem 01/29/2025 Insurance [facility] OUT [place] BLUE CROSS OUT OF [facility] OUT OF [facility] OUT OF [facility] Advance Directives * Full Code (Latest Code Status on File) Date Activated Date Inactivated Comments 01/06/2024 5:40 PM Question Answer Comments Decision Thoroughly Discussed with: Patient * Full Code Date Activated Date Inactivated Comments 08/30/2023 12:10 PM 01/06/2024 2:18 PM Full Code Care Teams Barrel Endshake Adjuster Relationship Specialty Start Date End Date Britt Villarreal PA-C [address] [place] [address] PCP - General Internal Medicine 11/03/24
--- NOTE | 2025-02-16 08:00 | A.OFFVIS_ITS ---
Intake Visit Reasons: 3m follow up/ PVR Intake Note: Patient presents today for follow up on: recurrent uti Urology Medications: Estrace Cream Blood Thinner: aspirin PVR: 39mls Coil Winding Supervisor Required: No Accompanied by: Self / Same As Patient Allergies metformin Adverse Reaction (Verified 02/16/25 21:44) diarrhea and vomiting Medication List - Last Reconciled 02/16/25 by DARVIN Contreras acetaminophen ER 650 mg PO Q12H PRN albuterol sulfate 90 mcg/actuation 2 puffs inhalation Q4-6H PRN amlodipine 5 mg PO DAILY ascorbic acid (vitamin C) 1 g PO DAILY 90 days aspirin 81 mg PO DAILY atorvastatin 80 mg PO DAILY blood-glucose sensor (Blue Pillar G6 Sensor device) As directed blood-glucose transmitter (Blue Pillar G6 Transmitter device) As directed budesonide-formoterol 160-4.5 mcg/actuation (Symbicort) 2 puffs inhalation Q12H bupropion HCl XL 300 mg PO DAILY estradiol 0.01%(0.1mg/gram) 2 grams vaginal DAILY 90 days evolocumab (Repatha SureClick) 140 mg subcut Q2W 90 days fluticasone propionate 50 mcg/actuation (Flonase Allergy Relief) 1 spray intranasal DAILY gabapentin 300 mg PO TID hydrochlorothiazide 12.5 mg PO DAILY hydroxyzine HCl 10 mg PO DAILY PRN insulin aspart (niacinamide) 100 unit/mL (3 mL) (Fiasp FlexTouch U-100 Insulin) 10 units subcut TID insulin glargine (Basaglar KwikPen U-100 Insulin) 50 units subcut QPM ipratropium bromide 2 sprays intranasal BID ipratropium-albuterol 0.5 mg-3 mg(2.5 mg base)/3 mL 3 mL inhalation Q6H PRN lisinopril 10 mg See Protocol PO DAILY methenamine hippurate 1 g PO DAILY 90 days naltrexone 25 mg PO DAILY pantoprazole 40 mg (2 x 20 mg) PO DAILY@0630 60 days polyethylene glycol 3350 (Miralax) 17 grams PO DAILY 30 days primidone mg PO DAILY trazodone mg PO HPI Comments Details: Ewelina is a very pleasant 59-year-old female patient of Dr. Watts. She has a past medical history of bilateral carotid stenosis, atherosclerotic cardiovascular disease, NSTEMI, chronic headaches, GERD hope, hyperlipidemia, depression, pneumonia, sepsis, Amos's esophagus, dyslipidemia, hypertension, and diabetes. She presents to the office today for a follow up. Of note, patient was seen approximately 3 months ago as a new patient for recurrent urinary tract infections. In discussion with the patient today she reports having had another urinary tract infections since her last follow-up here. She reports just last month she had a UTI and has since completed antibiotic therapy. Urine cultures are as follows: 07/23 Staphylococcus epidermis, 08/23 lactobacillus species, 03/24 E coli, 06/24 E coli, 08/24 E coli, 08/24 E coli, 10/25 E coli, and 01/23 E coli. She discusses her recent trip out to [place] to visit her daughter and grandchildren. She reports she continue to follow-up with endocrinology, Nephrology, gastroenterology, pulmonology, and her PCP for ongoing medical issues. She does continue to report episodes of urinary urgency and frequency. In office urinalysis results reviewed with the patient today 1+ leukocytes 1+ microscopic hematuria 3+ proteinuria otherwise within normal limits. PVR 39 mL. When asked she does report compliance with Estrace cream as prescribed. She discusses her upcoming endoscopy this Sunday as she has also been experiencing issues with swallowing. She discusses her longstanding history of IBS previous workup has included a abdominal ultrasound 03/24 noting bilateral kidneys with no calculi, lesions, and or hydronephrosis. Patient also with recent abdominal MRI 10/25 that notes the kidneys are unremarkable. We discussed at length potential causes of recurrent urinary tract infections as well as further treatment options and risks and benefits of these treatment options. We discussed potential for near future in office cystoscopy and or urodynamics for further assessment evaluation. We also discussed at length the importance of weight loss and management and diabetes for improvement in lower urinary tract symptoms as well as overall health and well-being. She denies hematuria, dysuria, foul smelling urine, changes to urinary stream, flank pain, fever, and or chills. She otherwise offers no other issues or concerns at this time. Plan The patient will continue using estrogen cream three times per week and commence methenamine and vitamin C to manage recurrent urinary tract infections, with the explanation given on the necessity of vitamin C alongside methanamine. A urine sample has been sent for analysis, and a follow-up is planned within three months to reassess UTI recurrence and efficacy of treatment. Consideration for cystoscopy will take place if infections persist. Chronic kidney disease management continues under nephrology guidance, with an appointment upcoming. Diabetes control is prioritized with endocrinology consultation to address nocturnal hypoglycemia. We discussed importance of controlling diabetes and IBS management for improvement in recurrent urinary tract infections as well as overall health and well-being. Patient was informed and verbally consented to the use of an ambient scribe for clinic note documentation during this visit. Discussion Notes I discussed the management of recurrent UTIs, emphasizing the combination of methanamine and vitamin C for suppression, with emphasis on the need to use vitamin C for methanamine activation. I instructed on monitoring symptoms and ensuring urine testing when symptoms arise to confirm bacterial presence. We reviewed chronic kidney disease and diabetes management, particularly addressing insulin dosing in light of nocturnal hypoglycemia, with appropriate follow-up with endocrinology. I reinforced the importance of managing diabetes and IBS to assist in prevention of recurrent urinary tract infections We discussed further diagnostic steps like cystoscopy if UTIs persist and detailed regular hydration and hygiene measures. The patient is advised on regular follow-up to monitor treatment efficacy. [facility] Medical History Carotid stenosis, bilateral Elevated serum GGT level Atherosclerotic cardiovascular disease Non-ST elevation HI (NSTEMI) Action tremor Chronic headaches GERD (gastroesophageal reflux disease) Hyperlipidemia Depression Pneumonia Sepsis Barretts esophagus Dyslipidemia HTN (hypertension) Charcot's joint of foot Diabetes Surgical History History of esophagogastroduodenoscopy (EGD) Hx of colonoscopy H/O foot surgery Hx of cholecystectomy H/O: hysterectomy Family History Son Substance use disorder Father Substance use disorder Mother Substance use disorder Family/Other Substance use disorder Maternal Grandfather Heart problem Maternal Uncle Heart problem Paternal Grandmother Heart problem Sister Heart problem Social History Household Members: None Housing: Condominium Do you presently have visiting nurse or other home services: No Alcohol intake: never Patient Tobacco Use Status: Never used Tobacco e-Cigarette/Vaping Use: Never Used Second Hand Smoke Exposure: No Advance Directives Date on File: 07/25/23 service: No Current occupational status: employed 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 Current occupational exposures/hazards: No Cognitive needs: No Hearing needs: No Vision needs: No Review of Systems Const Reports no additional complaints Eyes Reports no additional complaints ENT Reports no additional complaints Card Reports as per HPI Resp Reports as per HPI GI Reports as per HPI Reports as per HPI Musc Reports as per HPI Neuro Reports no additional complaints Psych Reports no additional complaints Endo Reports as per HPI Physical Exam Const General: cooperative, healthy appearing, comfortable, no acute distress, well developed, alert and awake Nutritional Appearance: overweight Orientation/consciousness: patient oriented x3 Limitations: no limitations HEENT Head: Yes normal to inspection, Yes normocephalic and Yes atraumatic Ears: hearing grossly normal bilaterally Eyes General: appearance normal, both eyes and all related structures Neck Neck: Yes normal visual inspection and Yes trachea midline Chest Chest palpation & inspection: normal inspection of the chest Resp Effort & Inspection: normal respiratory effort and able to speak in complete sentences Cardio Rate: regular rate GI Inspection: Yes normal to inspection General: Yes no CVA tenderness Back/Spine/Pelvis Back: no CVA tenderness Skin General skin exam: no rashes or lesions noted Neuro General: patient oriented x3 Extrem General: Yes normal to inspection Psych Appearance: grossly normal and well kempt Mental Status: mental status grossly normal Speech and movement: Normal speech and movement present and Clear speech present Affect: normal affect Attitude: cooperative Thought process: Normal thought process present Thought content: Normal thought content present Insight: Fair insight present (Psych) Judgement: Fair judgement present (Psych) Office Procedures Post Void Residual Post Residual Void Post Void Residual (PVR): 39 [id number] Void Residual by ultrasound Results AMB Urinalysis, Automated UA Leukoctes 70 Sole/uL Last Edit by Tiffany Layne on 02/16/25 08:24 UA Nitrite Last Edit by Tiffany Layne on 02/16/25 08:24 UA Urobilinogen 0.2 mg/dL Last Edit by Tiffany Radfordqueta on 02/16/25 08:24 UA Protein 300 mg/dL Last Edit by Tiffany Malinaqueta on 02/16/25 08:24 UA pH 6.0 Last Edit by Tiffany Malinaqueta on 02/16/25 08:24 UA Blood 25 Willam/uL Last Edit by Tiffany Layne on 02/16/25 08:24 UA Specific [place] 1.025 Last Edit by Tiffany Malinaqueta on 02/16/25 08:24 UA Ketone Last Edit by Tiffany Layne on 02/16/25 08:24 UA Bilirubin 0 mg/dL Last Edit by Tiffany Layne on 02/16/25 08:24 UA Glucose 0 mg/dL Last Edit by Tiffany Layne on 02/16/25 08:24 Results Reviewed Results Reviewed: Laboratory Last Values Urine pH (Auto) 6.0 02/16/25 08:23 Specific [place] (Auto) 1.025 02/16/25 08:23 Urine Protein (Auto) 300 mg/dL 02/16/25 08:23 Glucose (UA)(Auto) 0 mg/dL 02/16/25 08:23 Urine Blood (Auto) 25 Willam/uL 02/16/25 08:23 Urine Bilirubin (Auto) 0 mg/dL 02/16/25 08:23 Urine Urobilinogen (Auto) 0.2 mg/dL 02/16/25 08:23 Leukocyte Esterase (Auto) 70 Sole/uL 02/16/25 08:23 Assessment & Plan Assessment & Plan (1) Recurrent UTI: Code(s): N39.0 - Urinary tract infection, site not specified Category: Medical (2) Microscopic hematuria: Code(s): R31.29 - Other microscopic hematuria Category: Medical Plan In office urinalysis results reviewed with the patient today; as noted above; will send for urine culture. PVR 39 mL. Continue Estrace cream. Start methenamine and vitamin-C as prescribed. We discussed potential causes of recurrent urinary tract infections as well as further treatment options and risks and benefits of these treatment options. We discussed potential near future in office cystoscopy for further assessment evaluation. Discussed UTI prevention with D mannose supplement, vitamin-C, increasing fluid intake, behavioral therapy with timed voiding, perineal hygiene and postcoital voiding, and management of constipation with stool softeners and increased fiber intake. Continue to follow-up with endocrinology, Nephrology, gastroenterology, pulmonology, and her PCP as planned. Follow-up in 3 months with PVR; or sooner with any issues, concerns, and or questions. Orders: Orders AMB Urinalysis Automated Today Z13.9 - Encounter for screening, unspecified AMB Post Void Residual by ultrasound Today N39.0 - Urinary tract infection, site not specified Urine Culture Today N39.0 - Urinary tract infection, site not specified Medications: New methenamine hippurate 1 g PO DAILY 90 tabs 1RF 90 days N39.0 - Urinary tract infection, site not specified ascorbic acid (vitamin C) 1 g PO DAILY 90 tabs 1RF 90 days N39.0 - Urinary tract infection, site not specified Patient Instructions: The patient had an opportunity to ask questions regarding the treatment plan. All questions were answered. Physical exam, labs, and imaging were discussed and reviewed in detail. As well as risks, benefits, and discussion of treatment choices. No major barriers to understanding were identified. The patient expressed understanding and agreement with the above treatment plan. The patient was made aware they should contact our office by phone for worsening of their current condition, the appearance of new symptoms, or with any questions or concerns. Compliance is encouraged with any medications and follow up testing that is ordered. It is a privilege to be allowed the opportunity to participate in? your urological care.? Again, if you have any questions or concerns If you have any questions or concerns please do not hesitate to contact me. The office is [phone]. This note is constructed using voice recognition software. While every effort has been made to ensure accuracy side laster errors may have been included. Yours sincerely, DARVIN Contreras Coding Level of Care Code Est Pt Level 4 (25250) Complex EM visit Add On G2211 Diagnoses Recurrent UTI N39.0 Microscopic hematuria R31.29 CPT Codes Post Residual Void - PVR CPT Code: 50826-Cqxq Void Residual by ultrasound ([id number])
== END 2025-02-16 08:35 | disposition home or self-care (01) ==
LOC: HO.HUSH 07:49
PROVIDERS: PCP Physician Assistant Medical; Visit Provider Nurse Practitioner Family
DX: N39.0 Urinary tract infection, site not specified (principal); R31.29 Other microscopic hematuria; Z13.9 Encounter for screening, unspecified
CPT/HCPCS: 99214

== ENCOUNTER 2025-03-13 15:27 | Outpatient (AMB) | payer BC, SELFPAY ==
--- NOTE | 2025-03-13 15:28 | MHC.OFFVIS ---
Vital Signs 03/13/25 15:29 Height 5 ft 5 in Weight 283 lb 6 oz BMI 47.2 BP 132/84 Blood Pressure Location Rt brachial Position Sitting Pulse 91 Pulse Source Pulse Oximeter Pulse Oximetry (%) 98 Oxygen Delivery Method Room Air Intake Visit Reasons: dyspnea Allergies cephalexin Allergy (Intermediate, Verified 03/13/25 15:33) Rash metformin Adverse Reaction (Verified 03/13/25 15:31) diarrhea and vomiting HPI HPI dyspnea: Details: Ewelina is a pleasant 59 year old, never smoker, with underlying history of COVID in 2020 requiring 8 day ICU stay and hospital admission for sepsis, DKA, pneumonia and NJ in August 2023. She underwent s/p cardiac cath revealing mild CAD and echocardiogram with LVEF of 65-70% with mild diastolic dysfunction. She is currently utilizing Breyna with notable improvement of dypnea, with infrequent use of albuterol MDI. Denies any wheezing or cough. She denies any visits or hospitalizations related to respiratory distress however did have worsening respiratory symptoms likely related to altitude changes while in [place] in January. She reports within 1-2 days she developed increased dyspnea and frequent use of albuterol MDI however after returning to [facility], symptoms improved with 24 hours. [facility] Medical History Carotid stenosis, bilateral Elevated serum GGT level Atherosclerotic cardiovascular disease Non-ST elevation NJ (NSTEMI) Action tremor Chronic headaches GERD (gastroesophageal reflux disease) Hyperlipidemia Depression Pneumonia Sepsis Barretts esophagus Dyslipidemia HTN (hypertension) Charcot's joint of foot Diabetes Surgical History History of esophagogastroduodenoscopy (EGD) Hx of colonoscopy H/O foot surgery Hx of cholecystectomy H/O: hysterectomy Family History Son Substance use disorder Father Substance use disorder Mother Substance use disorder Family/Other Substance use disorder Maternal Grandfather Heart problem Maternal Uncle Heart problem Paternal Grandmother Heart problem Sister Heart problem Social History Household Members: None Housing: Condominium Do you presently have visiting nurse or other home services: No Alcohol intake: never Patient Tobacco Use Status: Never used Tobacco e-Cigarette/Vaping Use: Never Used Second Hand Smoke Exposure: No Advance Directives Date on File: 07/25/23 service: No Current occupational status: employed 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 Current occupational exposures/hazards: No Cognitive needs: No Hearing needs: No Vision needs: No Review of Systems Const Denies chills, Denies excessive sweating, Denies fever(s), Denies headache(s) and Denies night sweats Eyes Denies dry eyes, Denies irritation and Denies itchy eyes ENT Reports Normal hearing present, Denies headache(s), Denies nasal congestion, Denies nasal discharge, Denies post nasal drip and Denies sore throat Card Denies chest pain, Denies chest pain at rest, Denies chest pain with activity, Denies claudication, Denies leg edema, Denies orthopnea and Denies paroxysmal nocturnal dyspnea Resp Denies chest congestion, Denies excessive phlegm production, Denies pain on inspiration, Denies pain with cough and Denies stridor Musc Denies myalgias Neuro Reports Normal hearing present and Denies headache(s) Endo Denies excessive sweating Gary/Lymph Denies lymphadenopathy Aller/Immun Denies itchy eyes and Denies seasonal rhinorrhea Physical Exam Vital Signs: Last Vital Signs Pulse 91 03/13/25 15:29 BP 132/84 03/13/25 15:29 Pulse Ox 98 03/13/25 15:29 Oxygen Delivery Method Room Air 03/13/25 15:29 BMI result Body Mass Index 47.2 Const General: cooperative, healthy appearing, comfortable, no acute distress, well developed and alert Nutritional Appearance: obese Orientation/consciousness: patient oriented x3 Limitations: no limitations HEENT Head: Yes normal to inspection, Yes normocephalic and Yes atraumatic Ears: hearing grossly normal bilaterally and external ears normal Eyes General: appearance normal, both eyes and all related structures Eyelids: Yes eyelids normal Sclerae: sclerae normal EOM: EOMs intact bilaterally Neck Neck: Yes normal visual inspection and Yes no lymphadenopathy Lymphatic: no lymphadenopathy noted Chest Chest palpation & inspection: normal inspection of the chest Resp Effort & Inspection: normal respiratory effort, able to speak in complete sentences, no audible wheezes, no cough, no stridor, not tachypneic, no tripod positioning and no use of accessory muscles Auscultation: diminished lung sounds Cardio Jugular venous distension: no JVD Rate: regular rate Rhythm: regular rhythm Skin Other: warm, dry General skin exam: no rashes or lesions noted Neuro General: patient oriented x3 Cranial nerves: Yes Normal hearing present Cognition (Neuro): normal cognition Gait exam (Neuro): Normal gait present Extrem General: Yes normal to inspection, Yes capillary refill normal, Yes no clubbing, cyanosis or edema and Yes no pedal edema Psych Appearance: grossly normal and well kempt Speech and movement: Normal speech and movement present and Clear speech present Affect: normal affect Attitude: cooperative Thought process: Normal thought process present Thought content: Normal thought content present Insight: Good insight present (Psych) Judgement: Good judgement present (Psych) Assessment & Plan Assessment & Plan (1) Dyspnea on exertion: Code(s): R06.09 - Other forms of dyspnea Category: Medical (2) Bronchiectasis: Code(s): J47.9 - Bronchiectasis, uncomplicated Category: Medical Plan Ewelina reports good control of respiratory symptoms on current regimen, advised to continue Breyna and albuterol MDI. She is aware to call if symptoms change. All questions were answered and patient is in agreement of plan. Will follow up in 3 months or sooner if needed. Coding Level of Care Code Est Pt Level 3 (25017) Diagnoses Dyspnea on exertion R06.09 Bronchiectasis J47.9
[2025-03-13 15:29] VITALS: BP 132/84; PULSE 91; O2SAT 98; BMI 47.2
--- OUTSIDE RECORDS SUMMARY | 2025-03-13 15:30 | XMS_ITS | Encounter Summary ---
Author Organization [facility] Address [address] [place] [address] Care Team Providers Care Test Director Name Role Phone Ranjana Villarreal PA-C Primary Care Provi erika Encounter Details Date Type Department Care Team (Late st Contact Info) Description 12/25/2024 Scanned Document [facility] NEPHROLOGY SCAN Nephrology, Scan Social History [...] Care Team (Late st Contact Info) Description 03/17/2025 4:15 PM EDT Telemedicine [facility] [place] [address] [place] [phone] Rebecca Angel APRN [address] [place] [address] 03/19/2025 8:00 AM EDT [facility] [address] [id number] Jared Rousseau MD [address] [place] [phone] 04/01/2025 7:00 AM EDT Telemedicine Clinical Support [facility] [place] Nutrition Services [address] [place] [phone] [place] [address] 04/21/2025 3:15 PM EDT [facility] [address] [phone] Marc Reynolds MD [address] [place] [address] [address] [place], [place] [address] 04/30/2025 8:30 AM EDT Evaluation [facility] [address] [place] [address] Dianne Mackay PA [address] [address] Jelani Hall, EROS [address] [place] [address] 05/07/2025 9:15 AM EDT [facility] [address] [place] [address] Dianne Mackay PA [address] [place] [address] [phone] Jelani Hall, PT [address] [facility] [address] 06/18/2025 11:20 AM EDT Consult [facility] [place] [address] [place] [address] Ranjana Villarreal PA-C [address] [phone] Maria D Hinojosa, PULP MAKER [address] [place] [address] 07/22/2025 9:30 AM EDT Office Visit [facility] 100 [facility] [address] [place] [phone] Ranjana Villarreal PA-C [address] [place] [address] documented as of this encounter Visit Diagnoses Not on filedocumented in this encounter Care Teams Test Director Relationship Specialty Start Date End Date Ranjana Villarreal PA-C [address] [place] [address] PCP - General Internal Medicine 11/03/24 documented as of this encounter
== END 2025-03-13 16:05 | disposition home or self-care (01) ==
LOC: HO.HPSW 15:28
PROVIDERS: PCP Physician Assistant Medical; Visit Provider Nurse Practitioner Family
DX: R06.09 Other forms of dyspnea (principal); J47.9 Bronchiectasis, uncomplicated
CPT/HCPCS: 99213

== ENCOUNTER → 2025-03-13 15:27 | Outpatient (BNVA) | payer BC, SELFPAY | PROVIDERS: PCP Physician Assistant Medical; Visit Provider Nurse Practitioner Family ==

== ENCOUNTER 2025-03-24 12:24 | Outpatient (REF) | payer BC, SELFPAY ==
[2025-03-24 19:35] LABS: Anion Gap 13 (12-20); Blood Urea Nitrogen 41 mg/dL (9-16); Carbon Dioxide 29 mmol/L (22-29); Chloride 97 mmol/L (96-108); Estimated Glomerular Filt Rate 24; Glucose Random 366 mg/dL (60-115); Potassium 5.8 mmol/L (3.3-5.1); Sodium 133 mmol/L (135-145)
== END 2025-03-24 12:25 | disposition home or self-care (01) ==
LOC: HO.HKASLDS 12:24
PROVIDERS: Visit Provider Internal Medicine Hypertension Specialist
DX: N18.9 Chronic kidney disease, unspecified (principal)
CPT/HCPCS: 36415; 80048

== ENCOUNTER 2025-03-25 14:15 | Outpatient (AMB) | payer BC, SELFPAY ==
[2025-03-25 14:15] VITALS: BP 136/82; PULSE 92; O2SAT 96; BMI 46.8
--- NOTE | 2025-03-25 14:15 | HO.NEPHOV_ITS ---
Vital Signs 03/25/25 14:15 Height 5 ft 5 in Weight 281 lb BMI 46.8 BP 136/82 Blood Pressure Location Rt brachial Position Sitting Pulse 92 Pulse Source Pulse Oximeter Pulse Oximetry (%) 96 Oxygen Delivery Method Room Air Intake Visit Reasons: 2 Month F/U CONF Hinging Machine Operator Required: No Accompanied by: Self / Same As Patient Allergies cephalexin Allergy (Intermediate, Verified 03/25/25 14:17) Rash metformin Adverse Reaction (Verified 03/25/25 14:17) diarrhea and vomiting Medication List - Last Reconciled 03/25/25 by Abhijit Ramires MD acetaminophen ER 650 mg PO Q12H PRN albuterol sulfate 90 mcg/actuation 2 puffs PO Q4-6H PRN amlodipine 5 mg PO DAILY ascorbic acid (vitamin C) 1 g PO DAILY 90 days aspirin 81 mg PO DAILY atorvastatin 80 mg PO DAILY blood-glucose sensor (Dexcom G6 Sensor device) As directed blood-glucose transmitter (Dexcom G6 Transmitter device) As directed budesonide-formoterol 160-4.5 mcg/actuation (Symbicort) 2 puffs inhalation Q12H bupropion HCl XL 300 mg PO DAILY estradiol 0.01%(0.1mg/gram) 2 grams vaginal DAILY 90 days evolocumab (Repatha SureClick) 140 mg subcut Q2W 90 days fluticasone propionate 50 mcg/actuation (Flonase Allergy Relief) 1 spray intranasal DAILY gabapentin 300 mg PO TID hydrochlorothiazide 12.5 mg PO DAILY hydroxyzine HCl 10 mg PO DAILY PRN insulin aspart (niacinamide) 100 unit/mL (3 mL) (Fiasp FlexTouch U-100 Insulin) 10 units subcut TID insulin glargine (Basaglar KwikPen U-100 Insulin) 50 units subcut QPM ipratropium bromide 2 sprays intranasal BID ipratropium-albuterol 0.5 mg-3 mg(2.5 mg base)/3 mL 3 mL inhalation Q6H PRN lisinopril 10 mg See Protocol PO DAILY meloxicam 7.5 mg PO DAILY methenamine hippurate 1 g PO DAILY 90 days methocarbamol 750 mg PO Q6H PRN naltrexone 25 mg PO DAILY nitrofurantoin monohyd/m-cryst 100 mg (Macrobid) 100 mg PO BID 14 days pantoprazole 40 mg (2 x 20 mg) PO DAILY@0630 60 days polyethylene glycol 3350 (Miralax) 17 grams PO DAILY 30 days primidone mg PO DAILY trazodone mg PO HPI Comments Details: Ewelina is a pleasant 59 year woman with a history of longstanding diabetes mellitus. She has been referred for evaluation of CKD. Baseline creatinine is around 1.0-1.2 mg/dL about a year ago. In March of 2024 she was prescribed Ozempic. After few doses she was sick and she was having vomiting. She was hospitalized and received IV hydration. In March creatinine peaked to 2.2 mg/dL. Creatinine has been staying around 1.6 mg/dL for the last 3 months and she has been for further evaluation. She has had recurrent UTIs. The recent abdominal ultrasonogram showed unremarkable kidneys without any hydronephrosis. She has a history of occipital neuralgia. History of flu significant obesity in the hypertension. History of Charcot joint 07/23/24 Doing well Still has urinary symptoms and feels she might have UTI 12/24/24. Doing better Gained weight;BP elevated ; EAts popcorn everyday;No further UTI 04/01/25 The patient is a 59-year-old female presenting with hyperkalemia and back pain. The hyperkalemia was identified with a potassium level of 5.8 mmol/L, elevated from a previous level of 5.2 mmol/L in November. The patient has been on lisinopril for a while, and recently started taking meloxicam, which may have contributed to the increased potassium levels. The patient has been advised to discontinue meloxicam due to its potential to elevate potassium levels, especially in combination with lisinopril. The patient reports back pain for which she was prescribed meloxicam and a muscle relaxant. She has a history of diabetes mellitus and was advised against taking NSAIDs due to potential renal implications. The patient has experienced increased leg swelling, which is more pronounced than before, and is currently taking hydrochlorothiazide for fluid management. The patient's weight has decreased from 290 pounds in November to 281 pounds rece ntly, despite the swelling. The patient denies any significant changes in diet that could have contributed to the hyperkalemia, such as increased intake of potassium-rich foods. [facility] Medical History Carotid stenosis, bilateral Elevated serum GGT level Atherosclerotic cardiovascular disease Non-ST elevation IA (NSTEMI) Action tremor Chronic headaches GERD (gastroesophageal reflux disease) Hyperlipidemia Depression Pneumonia Sepsis Barretts esophagus Dyslipidemia HTN (hypertension) Charcot's joint of foot Diabetes Surgical History History of esophagogastroduodenoscopy (EGD) Hx of colonoscopy H/O foot surgery Hx of cholecystectomy H/O: hysterectomy Family History Son Substance use disorder Father Substance use disorder Mother Substance use disorder Family/Other Substance use disorder Maternal Grandfather Heart problem Maternal Uncle Heart problem Paternal Grandmother Heart problem Sister Heart problem Social History Household Members: None Housing: Condominium Do you presently have visiting nurse or other home services: No Alcohol intake: never Patient Tobacco Use Status: Never used Tobacco e-Cigarette/Vaping Use: Never Used Second Hand Smoke Exposure: No Advance Directives Date on File: 07/25/23 service: No Current occupational status: employed 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 Current occupational exposures/hazards: No Cognitive needs: No Hearing needs: No Vision needs: No Physical Exam Vital Signs: Last Vital Signs Pulse 92 03/25/25 14:15 BP 136/82 03/25/25 14:15 Pulse Ox 96 03/25/25 14:15 Oxygen Delivery Method Room Air 03/25/25 14:15 BMI result Body Mass Index 46.8 Results Reviewed Nephrology Results: Hgb, (12.0-16.0) 11.3 g/dl L 12/09/24 WBC, (4.8-10.8) 9.0 X10*3/uL 12/09/24 Plt Count, (160-400) 284 X10*3/uL 12/09/24 Sodium, (135-145) 133 mmol/L L 03/24/25 Potassium, (3.3-5.1) 5.8 mmol/L H 03/24/25 Chloride, (96-108) 97 mmol/L 03/24/25 Carbon Dioxide, (22-29) 29 mmol/L 03/24/25 BUN, (9-16) 41 mg/dL H 03/24/25 Creatinine, (0.5-1.4) 2.09 mg/dL H 03/24/25 Calcium, (8.4-10.2) 10.0 mg/dL 03/24/25 Urine Protein, (Neg-Trace) See Note mg/dL 01/22/25 Assessment & Plan Assessment & Plan (1) HTN (hypertension): Code(s): I10 - Essential (primary) hypertension Category: Medical (2) Hyperkalemia: Code(s): E87.5 - Hyperkalemia Category: Medical (3) CKD (chronic kidney disease): Code(s): N18.9 - Chronic kidney disease, unspecified Category: Medical (4) Obesity: Code(s): E66.9 - Obesity, unspecified Category: Medical (5) Anemia: Code(s): D64.9 - Anemia, unspecified Category: Medical Qualifiers: Anemia type: iron deficiency Plan Ewelina is a pleasant 59 woman with CKD 3. Differential diagnosis would include diabetic nephropathy. She has significant proteinuria most likely due to diabetic nephropathy. Nondiabetic causes seem unlikely based on serologies Baseline creatinine is around 1.4 to 1.6 Based on recent imaging she has no evidence of obstructive uropathy. Mild hypokalemia in the setting of CKD. Hypertension blood pressure well controlled. Recommendation Keep on low-sodium diet. She should stay on low-potassium diet as well. I will continue the YARED inhibitor for renal protection. Maintain blood pressure less than 130/80 Will benefit from weight loss Maintain A1C < 7% Continue to avoid nephrotoxic agents including NSAIDs. Goal is to slow the progression of renal disease Unable to use SGLT-2 inhibitor due to h/o DKA BP sub optimal Add low dose HCTZ 12.5 mg and titrate dose. . 04/01/2025 - Stop taking meloxicam immediately. - Schedule a blood test for Sunday to check potassium levels and kidney function. - Increase hydrochlorothiazide dosage as prescribed to manage swelling. - Use acetaminophen for pain relief instead of NSAIDs. - Monitor for any changes in swelling and report if it does not improve. . Orders: Orders Basic Metabolic Panel Today E87.5 - Hyperkalemia, I10 - Essential (primary) hypertension, N18.9 - Chronic kidney disease, unspecified Medications: New hydrochlorothiazide 25 mg PO DAILY 30 tabs 1RF Discontinued hydrochlorothiazide Discontinued Reason: Doctor's Order 12.5 mg PO DAILY 90 caps 1RF Coding Level of Care Code Est Pt Level 4 (95029) Diagnoses HTN (hypertension) I10 Hyperkalemia E87.5 CKD (chronic kidney disease) N18.9 Obesity E66.9 Anemia D64.9 Anemia type: iron deficiency
--- OUTSIDE RECORDS SUMMARY | 2025-03-25 16:57 | XMS_ITS | Encounter Summary ---
Author Organization [facility] Address [address] [place] [address] Care Team Providers Care Social Worker Clinical Name Role Phone Ranjana Villarreal PA-C Primary Care Provi erika Encounter Details Date Type Department Care Team (Late st Contact Info) Description 12/25/2024 Scanned Document [facility] NEPHROLOGY SCAN Nephrology, Scan Social History Tobacco [...] Care Team (Late st Contact Info) Description 03/31/2025 8:30 AM EDT [facility] [address] [address] Jared Rousseau MD [address] [place] [address] Rubi Woo, PT 7 [place] [address] 04/01/2025 7:00 AM EDT Telemedicine Clinical Support [facility] [place] [facility] [address] [phone] Reji Amos, DILIP [address] [place] [address] 04/08/2025 2:30 PM EDT Treatment [facility] [address] [address] Rubi Woo, PT 7 [place] [address] 04/10/2025 9:30 AM EDT [facility] [address] [address] Rubi Woo, PT 7 [place] [address] 04/13/2025 12:30 PM EDT [facility] [address] [address] Rubi Woo, PT 7 [place] [address] 04/17/2025 12:30 PM EDT Treatment [facility] [address] [address] Rubi Woo, PT 7 [place] [address] 04/20/2025 12:30 PM EDT [facility] [address] [place] [address] Rubi Woo, PT 7 [place] [address] 04/21/2025 3:15 PM EDT [facility] [address] [address] Marc Reynolds MD [address] [place] [address] 04/22/2025 11:30 AM EDT Treatment [facility] of [address] [address] Rubi Woo, PT 7 [place] [address] 04/30/2025 8:30 AM EDT Evaluation [facility] [address] [place] [phone] Dianne Mackay, PA [address] [address] Jelani Hall, PT [address] [place] [address] 05/07/2025 8:00 AM EDT Office Visit [facility] [address] [address] Jared Rousseau MD 31 [place] [address] 05/07/2025 9:15 AM EDT Treatment [facility] [address] [facility] [place] [address] Dianne Mackay PA [address] [place] [address] Jelani Hall, PT [address] [facility] [address] 06/18/2025 11:20 AM EDT Consult [facility] Pul[facility] [place] [address] [place] [phone] Ranjana Villarreal PA-C [address] [place] [address] Maria D Hinojosa, SOFTWARE SUPPORT ENGINEER [address] [place] [address] 06/23/2025 1:15 PM EDT Telemedicine [facility] [place] [address] [place] [phone] Rebecca Angel, SOFTWARE SUPPORT ENGINEER [address] [place] [address] 07/22/2025 9:30 AM EDT Office Visit [facility] 100 [facility] [address] [place] [phone] Ranjana Villarreal PA-C [address] [place] [address] documented as of this encounter Visit Diagnoses Not on filedocumented in this encounter Care Teams Social Worker Clinical Relationship Specialty Start Date End Date aRnjana Villarreal PA-C [address] [place] [address] PCP - General Internal Medicine 11/03/24 documented as of this encounter
== END 2025-03-25 14:44 | disposition home or self-care (01) ==
LOC: HO.HKAE 14:15
PROVIDERS: PCP Physician Assistant Medical; Visit Provider Internal Medicine Hypertension Specialist
DX: I12.9 Hypertensive chronic kidney disease with stage 1 through stage 4 chronic kidney disease, or unspecified chronic kidney disease (principal); E87.5 Hyperkalemia; N18.9 Chronic kidney disease, unspecified; E66.9 Obesity, unspecified; D64.9 Anemia, unspecified
CPT/HCPCS: 99214

== ENCOUNTER 2025-04-01 12:33 | Outpatient (REF) | payer BC, SELFPAY ==
--- OUTSIDE RECORDS SUMMARY | 2025-04-01 13:03 | XMS_ITS | Clinical Summary ---
Author Organization [facility] Address [address] [place] [address] Care Team Providers Care Mathematics Faculty Member Name Role Phone Unavailable Primary Care Provider Unavailabl e Immunizations Immunization Administration Dates Next Due COVID-19, mRNA (Moderna [...] Vaccine (3 - season) 2024 12/29/2020, 12/01/2020 DTaP/Tdap/Td (2 - Td or Tdap) 10/22/2024 10/22/2014 Influenza (#1) 2025 07/15/2020, 07/01, 08/01/2016, Additional history exists HPV Vaccine Aged Out No longer eligi [...]
--- OUTSIDE RECORDS SUMMARY | 2025-04-01 13:03 | XMS_ITS | Clinical Summary ---
Author Organization [facility] Address [address] [place] [address] Care Team Providers Care Fire Lieutenant Name Role Phone Unavailable Primary Care Provider [...] 104 06/13/2023 3:12 PM EDT Temperature 37.2 C (99 F) 06/13/2023 3:12 PM EDT Respiratory Rate 17 [...] (1 of 2) 2016 COVID-19 Vaccine ( - season) 2024 12/29/2020, 12/01/2020 DTap / Tdap / Td (2 - Td or Tdap) 10/22/2024 10/22/2014 Influenza Vaccine (Season Ended) 2025 07/15/2020, 07/18/2018, 08/01/2016, Additional history exists Pneumococcal Vaccine Aged Out No long er eligible based on patient's age to complete this topic RSV Ped < 20 months Aged Out No longe r eligible based on patient's age to complete this topic Ewelina Mathis Personal/Family Self 1965 [address] [place] [address]
--- OUTSIDE RECORDS SUMMARY | 2025-04-01 13:03 | XMS_ITS | Continuity of Care Document ---
Author Organization [facility] [address] [place] [address] Phone [phone] Care Team Providers Care Solar Installer Pv Name Role Phone Joel Alegria Care Team Information Guest Relations Agent [phone] Problems Active Problems Provider Date Type 2 diabetes mellitus Susan Bui M.D. Onset: 08/10/2023 Essential hypertension Rodger Batista Onset: 08/10/2023 Dyslipidemia Susan Bui M.D. Ons et: 08/10/2023 Essential tremor Susan Bui M.D. On set: 08/10/2023 Gastroesophageal reflux disease Susan Heaton M.D. Onset: 08/10/2023 Amos's esophagus Susan Bui M.D. Onset: 08/10/2023 Diabetic peripheral neuropathy Susan rossi M.D. Onset: 08/10/2023 Charcot's arthropathy Eron Batsita Onset: 08/10/2023 History of non-ST segment el evation myocardial infarction Susan Bui M.D. 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 06/30/2024 Baqsimi One Avdk4ow/Dose Powder spray into nostril as needed for low sugar reaction 1unlitzy Bui M.D. 02/14/2024 Lantus FragosoEvspiqmc785Zrnt/ML Solution Pen-Inject inject 50 units daily as directed 45ml E11Lexy Bui M.D. 10/26/2023 Yporbtpew36wh Tablets Take 1 Tablet By Mouth Every Day For 30 Days Lynnette Cardona MD Atorvastatin Epxqbnj67wi Tablets 1 by mouth every day Unknown Amlodipine Vpqdkrxu8oy Tablets Take 1 Tablet (5 MG Total) By Mouth Daily. Unknown Repatha Qspziwpef016hc/ml Solution Auto-Inject inject 1 syringe under the skin every 2 weeks Unknown Aspirin 8181mg Tablets DR 1 by mouth every day Susan Bui M.D. Hydroxyzine UTD47kr Tablets Take 1 Tablet By Mouth Every Day as Needed Unknown Dexcom G6 SensorMisc use 1 sensor every 10 days 9units E11.42 Susan Bui M.D. Dexcom G6 SensorMisc Please See Attached For Detailed Directions Unknown Srybdfgfln895mn Capsules Take 2 Capsule By Mouth Three Times A Day Unknown Dexcom G6 TransmitterMisc To Use With Sensors DX E11.42 1units E11.Jared Bui M.D. Pantoprazole Xyaans37ux Tablets DR Take 1 Tablet By Mouth Every Morning (Before Breakfast) For 360 Days. Unknown Albuterol Sulfate PAF135(90Base) mcg/Act Aerosol Take 2 Puffs By Mouth Every 4 Hours as Needed For Wheeze Unknown Ipratropium Bromide0.06% Solution Administer 2 Sprays Into Each Nostril Every 6 Hours as Needed For Rhinitis. Unknown Mjybjtzgdt13mq Tablets Take 1 Tablet By Mouth Every Day Unknown Hyoscyamine Sulfate0.125mg Tablets Take 1 Tablet By Mouth 4 Times Daily as Needed For Cramping Or Diarrhea For Up T Unknown Basaglar Tzbiruw390Bert/ML Solution Pen-Inject Inject 55 Units Into The Skin AT Bedtime 60ml E11.42 Susan Bui M.D. Trazodone BMR486nj Tablets Take 1 Tablet By Mouth Everyday [...] Inhouse Hemoglobin A1c 6.9% Gad65 Autoantibodies 08/15/2023 [facility] Gad65 Autoantibodies <5.0 1 Islet Cell Antibody 512 08/15/2023 [facility] Islet Cell Antibody 512 <7.5 2 Insulin Antibody 08/15/2023 [facility] Insulin Antibody 12 High 3 1 Reference range: 0.0 to 5.0 Unit: U/mL Test performed at [address] [address] 2 Unit: U/mL (NOTE) Reference Range: <7.5 Negative > or EQ 7.5 Positive Test performed by [facility], [address] [place] [address] 3 Unit: uU/mL (NOTE) This test is also known as insulin autoantibody or IAA. This test was developed and its performance characteristics determined by [facility]. It has not been cleared or approved by the Food and Drug Administration. Reference Range: <5.0 Negative > or EQ 5.0 Positive Test performed by [facility], [address] [place] [address] Procedures Date Code Description Status 08/10/2023 27880 Collection Of Venous Blood B y Venipuncture [...] Chip Meyer MD POSSIBLE SEIZURES Closed [address] [place], [place] [id number] [phone]
--- OUTSIDE RECORDS SUMMARY | 2025-04-01 13:03 | XMS_ITS | Clinical Summary ---
Author Organization [facility] Address [address] [place] [address] Phone Care Team Providers Care Cokeman Name Role Phone Joel Aelgria NP Primary Care Provider Immunizations Name Administration [...] iron deficiency anemia most likely r/t a obstetrics gyn source. OTHER SURGICAL HISTORY 2004 PROCEDURE: HISTORICAL [...] ED evaluation 06/29/18, referred to Dr. Ewing, [facility] wound care Managed with IV abx via PICC line through ID, eval with Dr. Harris for skin graft 08/2018 Anxiety 09/17/2018 DX:Anxiety; COMM ENT: Panic attacks Diabetic neuropathy ([facility] V24, [facility] V28) 09/26/2018 DX:Diabetic neuropathy ([facility]) Umbilical hernia 09/26/2018 DX:Umbilical he rnia Type 2 diabetes mellitus wit h neurological manifestations ([facility] V24, [facility] V28) 09/26/2018 DX:Type 2 diabetes mellitus with neurological manifestations ([facility]); COMMENT: Endo consult with Dr. Garces Type 2 diabetes mellitus wit h renal manifestations ([facility] V24, [facility] V28) 01/15/2019 DX:Type 2 diabetes mellitus with renal manifestations ([facility]) Chronic gastric ulcer DX:Chronic gastric ulcer Depression DX:Depression ALIYAH on CPAP 01/15/2019 DX:ALIYAH on CPAP GERD (gastroesophageal reflux disease) 01/15/2019 DX:GERD (gastroesophageal reflux disease) Type 2 diabetes mellitus wit h vascular disease ([facility] V24, [facility] V28) 10/14/2012 DX:Type 2 diabetes mellitus with vascular disease ([facility]) IBS (irritable bowel syndrome) 01/15/2019 D X:IBS (irritable bowel syndrome) Carpal tunnel syndrome of left wrist 01/15/2019 DX:Carpal tunnel syndrome of left wrist Amso's esophagus 03/23/2022 DX:Amos's esophagus Joppa grade A esophagitis 03/23/2022 DX:Joppa grade A esophagitis Diabetes mellitus ([facility] V 24, [facility] V28) DX:Diabetes mellitus ([facility]) Hypertension DX:Hypertension Hypercholesterolemia DX:Hypercho lesterolemia Anxiety DX:Anxiety GERD (gastroesophageal reflux disease) DX:GERD (gastroesophageal reflux disease) Family History Medical History Relation Name Comments Other: Graves Disease Brother Heart failure Maternal Grandfather Stroke Other cancer Maternal Grandmother Liver Breast cancer Mother Heart failure Paternal Grandfather [place], Hy pertension Other cancer Paternal Grandmother Kidney [...] 01/07/2024, 01/06/2024, Additional history exists Influenza Vaccine (#1) 2025 3, 07/15/2020, 07/18/2018, Additional history exists Breast Cancer Screening 08/05/2026 08/05/20 24, 03/09/2023, 12/20/2021, Additional history exists Cholesterol Screening (Lipid Panel) 07/11/2028 07/11/2023 RSV Immunization Adult Patients (1 - 1-dose 75+ series) 2041 HIB Vaccines Aged Out No longer eligi [...] AM EST No mammographic evidence of malignancy. No suspicious interval change. A negative mammogram in the presence of a clinically suspicious palpable abnormality does not preclude the possibility of malignancy or alter the indications for biopsy. ASSESSMENT: BI-RADS 1: NEGATIVE RECOMMENDATION(S): 1: Routine screening mammogram BILATERAL in 1 year. -------- FINAL REPORT -------- Dictated By: Pantera Valencia Dictated Date: 08/05/2024 08:44 ET Assigned Physician: Pantera Valencia Reviewed and Electronically Signed By: Pantera Valencia Signed Date: 08/05/2024 08:54 ET Workstation ID: [id number] Transcribed By: Self Edit Transcribed Date: 08/05/2024 08:44 ET Narrative 08/05/2024 8:54 AM EST EXAM: SCREENING MAMMOGRAPHY, BILATERAL HISTORY: SCREENING. Mother diagnosed with breast cancer age 56. COMPARISON: 03/09/2023, 12/20/2021, 09/10/2020 TECHNIQUE: Synthesized CC and MLO projections of each breast. Tomosynthesis of each breast in the CC and MLO projections. ADDITIONAL IMAGING: None Computer-aided detection was employed with the [employer] 3-D. TISSUE DENSITY: There are scattered areas of fibroglandular density. (BI-RADS category B) FINDINGS: RIGHT BREAST: No suspicious mass. No suspicious calcification. No distortion. No additional suspicious right breast findings LEFT BREAST: No suspicious mass. No suspicious calcification. No distortion. No additional suspicious left breast findings Procedure Note Pantera Valencia MD - 08/05/2024 EXAM: SCREENING MAMMOGRAPHY, BILATERAL HISTORY: SCREENING. Mother diagnosed with breast cancer age 56. COMPARISON: 03/09/2023, 12/20/2021, 09/10/2020 TECHNIQUE: Synthesized CC and MLO projections of each breast.Tomosynthesis of each breast in the CC and MLO projections. ADDITIONAL IMAGING: None Computer-aided detection was employed with the [employer] 3-D. TISSUE DENSITY: There are scattered [...] Signed Date: 08/05/2024 08:54 ET Workstation ID: [id number] Transcribed By: Self Edit Transcribed Date: 08/05/2024 08:44 ET us Self Referral Sppl IMG BI PROCEDURES Final Resul t from Last 3 Months or Most Recently Relevant to Health Maintenance [place] [address] [place] [address] ([facility]) Care Teams Cokeman Relationship Specialty Start Date End Date Joel Alegria NP [address] [place], [place] PCP - General Family Medicine 08/01/24
--- OUTSIDE RECORDS SUMMARY | 2025-04-01 13:03 | XMS_ITS ---
[facility] Name [facility] Organization Unknown Results Test Name/Text Value Interpretation Date Range Source POC Glucose 203.0 mg/dL Above high normal 02/27/2025 65 - 99 [facility] Bacteria Ur Cult SEE NOTE 02/21/2025 QU EST Ferritin SerPl-mCnc 57.0 ng/mL Normal 01/30/2025 16 - 232 [facility] Iron Satn MFr SerPl 18.0 % (calc) Normal 01/30/2025 16 - 45 [facility] Iron SerPl-mCnc 53.0 mcg/dL Normal 01/30/2025 45 - 160 [facility] TIBC SerPl-mCnc 288.0 mcg/dL (calc) Normal 01/30/2025 250 - 450 [facility] NonHDLc SerPl-mCnc 77.0 mg/dL (calc) Normal 01/30/2025 - 130 [facility] HDLc SerPl-mCnc 47.0 mg/dL Below low normal 01/30/2025 - [facility] LDLc SerPl Calc-mCnc 53.0 mg/dL (calc) Normal 01/30/2025 [facility] Cholest/HDLc SerPl 2.6 (calc) Normal 01/30/2025 - 5 [facility] Cholest SerPl-mCnc 124.0 mg/dL Normal 01/30/2025 - 200 [facility] Trigl SerPl-mCnc 153.0 mg/dL Above high normal 01/30/2025 - 150 [facility] TSH SerPl-aCnc 1.19 mIU/L Normal 01/30/2025 0.4 - 4.[address] Vit B12 SerPl-mCnc 470.0 pg/mL Normal 01/30/2025 200 - 11 00 [facility] Folate SerPl-mCnc 13.8 ng/mL Normal 01/30/2025 [facility] Sodium SerPl-sCnc 135.0 mmol/L Normal 01/30/2025 135 - 14 6 [facility] BUN/Creat SerPl 17.0 (calc) Normal 01/30/2025 6 - 22 [facility] BUN SerPl-mCnc 32.0 mg/dL Above high normal 01/30/2025 7 - 2 5 [facility] Calcium SerPl-mCnc 9.3 mg/dL Normal 01/30/2025 8.6 - 10.4 [facility] CO2 SerPl-sCnc 28.0 mmol/L Normal 01/30/2025 20 - 32 [facility] EST Chloride SerPl-sCnc 100.0 mmol/L Normal 01/30/2025 98 - 1 10 [facility] eGFRcr SerPlBld CKD-EPI 2020 31.0 mL/min/1.73m2 Below low normal 01/30/2025 - [facility] Potassium SerPl-sCnc 5.3 mmol/L Normal 01/30/2025 3.5 - 5 .3 [facility] Glucose SerPl-mCnc 210.0 mg/dL Above high normal 01/30/2025 65 - 99 [facility] Creat SerPl-mCnc 1.84 mg/dL Above high normal 01/30/2025 0.5 - 1.03 [facility] Sp Gr Ur Strip 1.02 Normal 01/30/2025 1.001 - 1.035 [facility] Ketones Ur Ql Strip NEGATIVE Normal 01/30/2025 - [facility] Hgb Ur Ql Strip 1+ Abnormal 01/30/2025 - [facility] Service Cmnt-Imp Normal 01/30/2025 QU EST Bacteria #/area UrnS HPF NONE SEEN Normal 01/30/2025 - [facility] Prot Ur Ql Strip 3+ Abnormal 01/30/2025 - QU EST Nitrite Ur Ql Strip NEGATIVE Normal 01/30/2025 - [facility] pH Ur Strip 6.0 Normal 01/30/2025 5 - 8 [facility] Bilirub Ur Ql Strip NEGATIVE Normal 01/30/2025 - [facility] WBC #/area UrnS HPF 40-60 Abnormal 01/30/2025 - [facility] Color Ur YELLOW Normal 01/30/2025 - [facility] Leukocyte esterase Ur Ql Strip 2+ Abnormal 01/30/2025 - [facility] Hyaline Casts #/area UrnS LPF 0-5 Abnormal 01/30/2025 - [facility] RBC #/area UrnS HPF 0-2 Normal 01/30/2025 - [facility] Squamous #/area UrnS HPF 20-40 Abnormal 01/30/2025 - [facility] Glucose Ur Ql Strip TRACE Abnormal 01/30/2025 - [facility] Appearance Ur CLOUDY Abnormal 01/30/2025 - [facility] Basophils # Bld Auto 58.0 cells/uL Normal 01/30/2025 0 - 200 [facility] Basophils NFr Bld Auto 0.6 % Normal 01/30/2025 [facility] Hct VFr Bld Auto 35.1 % Normal 01/30/2025 35 - 45 [facility] EST RDW RBC Auto 13.4 % Normal 01/30/2025 11 - 15 [facility] Eosinophil NFr Bld Auto 3.0 % Normal 01/30/2025 [facility] Monocytes # Bld Auto 466.0 cells/uL Normal 01/30/2025 200 - 950 [facility] Monocytes NFr Bld Auto 4.8 % Normal 01/30/2025 [facility] RBC # Bld Auto 4.05 Million/uL Normal 01/30/2025 3.8 - 5. 1 [facility] Eosinophil # Bld Auto 291.0 cells/uL Normal 01/30/2025 15 - 500 [facility] Neutrophils # Bld Auto 6645.0 cells/uL Normal 01/30/2025 1500 - 7800 [facility] Lymphocytes NFr Bld Auto 23.1 % Normal 01/30/2025 [facility] Hgb Bld-mCnc 11.1 g/dL Below low normal 01/30/2025 11.7 - 15 .5 [facility] MCH RBC Qn Auto 27.4 pg Normal 01/30/2025 27 - [address] [facility] Platelet # Bld Auto 262.0 Thousand/uL Normal 01/30/2025 140 - 400 [facility] MCHC RBC Auto-EntMCnc 31.6 g/dL Below low normal 01/30/2025 32 - 36 [facility] RBC Auto 86.7 fL Normal 01/30/2025 80 - 100 [facility] PMV Bld Alex-Dio 9.8 fL Normal 01/30/2025 7.5 - 12.5 [facility] Neutrophils NFr Bld Auto 68.5 % Normal 01/30/2025 [facility] WBC # Bld Auto 9.7 Thousand/uL Normal 01/30/2025 3.8 - 10 .8 [facility] Lymphocytes # Bld Auto 2241.0 cells/uL Normal 01/30/2025 850 - 3900 [facility] Albumin/Glob SerPl 1.3 (calc) Normal 01/30/2025 1 - 2.5 [facility] Prot SerPl-mCnc 6.6 g/dL Normal 01/30/2025 6.1 - 8.[address] Bilirub SerPl-mCnc 0.4 mg/dL Normal 01/30/2025 0.2 - 1.2 [facility] ALT SerPl-cCnc 23.0 U/L Normal 01/30/2025 6 - 29 [facility] Albumin SerPl-mCnc 3.7 g/dL Normal 01/30/2025 3.6 - 5.1 [facility] ALP SerPl-cCnc 123.0 U/L Normal 01/30/2025 37 - 153 [facility] AST SerPl-cCnc 22.0 U/L Normal 01/30/2025 10 - 35 [facility] Indirect SerPl-mCnc 0.3 mg/dL (calc) Normal 01/30/2025 0.2 - 1.2 [facility] Direct SerPl-mCnc 0.1 mg/dL Normal 01/30/2025 - [facility] Globulin Ser Calc-mCnc 2.9 g/dL (calc) Normal 01/30/2025 1.9 - 3.7 [facility] History of Medication Use Medication Directions Dispensed Refills Start Date End Date Stat meloxicam (MOBIC) 7.5 MG tablet Take 1 tablet (7.5 mg total) by mouth daily. 03/19/2025 active methocarbamol (ROBAXIN) 750 MG tablet Take 1 tablet (750 mg total) by mouth 4 (four) times a day as needed for muscle spasms. 03/19/2025 active cephalexin (KEFLEX) 500 MG capsule Take 1 capsule (500 mg total) by mouth 2 (two) times a day. 02/19/2025 active PANTOprazole (PROTONIX) 40 MG EC tablet Take 1 tablet (40 mg total) by mouth daily. 01/22/2025 active budesonide-formoterol (SYMBICORT) 160-4.5 MCG/ACT inhaler Inhale 2 puffs twice daily (every 12 hours). 01/12/2025 active hydroCHLOROthiazide (MICROZIDE) 12.5 MG capsule Take 1 capsule (12.5 mg total) by mouth. 12/24/2024 active naltrexone (REVIA) 50 MG tablet Take 1 tablet (50 mg total) by mouth daily. 12/23/2024 active estradiol (ESTRACE) 0.01 % vaginal cream APPLY PEA-SIZED AMOUNT TO URETHRA DAILY X 1 MONTH THEN THREE DAYS A WEEK THEREAFTER 11/10/2024 active Continuous Glucose Sensor (Dexcom G6 Sensor) [facility] [place] 1 SENSOR EVERY 10 DAYS 05/15/2024 active Pulmicort Flexhaler 90 MCG/ACT inhaler Inhale 1 puff 2 (two) times a day. 01/01/2024 active ipratropium (ATROVENT) 0.03 % nasal spray USE 2 SPRAYS IN EACH NOSTIL TWICE DAILY 12/31/2023 active acetaminophen (TYLENOL) 500 MG tablet Take 1 tablet (500 mg total) by mouth 4 times daily (every 6 hours) as needed for mild pain. active aspirin enteric coated (ECOTRIN LOW STRENGTH) 81 MG EC tablet Take 1 tablet (81 mg total) by mouth daily. active fluconazole (diFLUcan) 150 MG tablet Take 150 mg by mouth once. active fluticasone-salmeterol 100-50 mcg/inh diskus inhaler Inhale 1 puff 2 (two) times a day. active gabapentin (NEURONTIN) 300 MG capsule Take 300 mg by mouth 3 (three) times a day. active hydrOXYzine HCl (ATARAX) 10 MG tablet Take 10 mg by mouth daily as needed. active insulin aspart (NovoLOG FlexPen) 100 UNIT/ML prefilled pen injection Inject 1-6 Units under the skin 3 (three) times a day before meals. Patient reports utilizing sliding scale active insulin aspart (NovoLOG FlexPen) 100 UNIT/ML prefilled pen injection Inject 10 Units under the skin 3 (three) times a day before meals. Patient reports utilizing sliding scale active lisinopril (PRINIVIL,ZeSTRIL) 10 MG tablet Take 10 mg by mouth daily. active Multiple Vitamin tablet Take 1 tablet by mouth every morning. active nitrofurantoin monohydrate (MACROBID) 100 MG capsule Take 1 capsule (100 mg total) by mouth 2 (two) times a day with meals. Dispense generic equivalent of MACROBID active PANTOprazole (PROTONIX) 20 MG tablet Take 2 tablets (40 mg total) by mouth daily. active traMADol (ULTRAM) 50 MG tablet Take 50 mg by mouth 4 times daily (every 6 hours) as needed. Patient reports not taking secondary to dizziness active Allergies Allergen Reaction Severity Comment Documented Date Source Statu s METFORMIN DIARRHEA 01/06/2024 [facility] active CEFTRIAXONE RASH/DERMATITIS 06/13/2023 [facility] a ctive Problems Problem Status Onset Date Problem Type Date of Resolution Source Peripheral vascular disease active 2024-11-03 ProblemAct [facility] Gastroesophageal reflux disease without esophagitis active 2024-11-03 ProblemAct [facility] Carotid artery stenosis without cerebral infarction, bilateral active 2024-01-08 ProblemAct [facility] Primary hypertension active 2024-11-03 ProblemAct [facility] Recurrent major depressive disorder, in partial remission active 2024-11-03 ProblemAct [facility] Type 2 diabetes mellitus without complication, with long-term current use of insulin active 2024-11-03 ProblemAct [facility] Stage 3 chronic kidney disease active 2025-01-28 ProblemAct [facility] Diabetic neuropathy associated with type 2 diabetes mellitus active 2024-11-03 ProblemAct [facility] Primary insomnia active 2024-11-03 ProblemAct [facility] Carotid artery plaque active 2024-01-08 ProblemAct [facility] History of COVID-19 active 2024-11-03 ProblemAct [facility] Full incontinence of feces active 2025-01-22 ProblemAct [facility] Esophageal dysphagia active 2025-01-22 ProblemAct [facility] Headache active 2024-01-06 ProblemAct [facility] Tremor active 2024-11-03 ProblemAct [facility] Dyslipidemia active 2023-08-10 ProblemAct [facility] Colon cancer screening active 2025-01-22 ProblemAct [facility] Charcot's arthropathy active 2023-08-10 ProblemAct [facility] IBS (irritable bowel syndrome) active 2024-11-03 ProblemAct [facility] Type 2 diabetes mellitus with diabetic neuropathic arthropathy, with long-term current use of insulin active 2024-11-03 ProblemAct [facility] Occipital neuralgia of left side active 2024-01-08 ProblemAct [facility] Essential tremor active 2023-08-10 ProblemAct [facility] Back pain, unspecified back location, unspecified back pain laterality, unspecified chronicity active EncounterDiagnosisAct [facility] Morbid obesity active 2024-11-[address] Gastric polyps active 2025-01-[address] Other hyperlipidemia active 2024-11-03 ProblemAct [facility] Amos's esophagus active 2023-08-10 ProblemAct [facility] Morbid obesity (HCC) active EncounterDiagnosisA ct [facility] Encounters Encounter Type Encounter Reason Primary Diagnosis Location Date Ambulatory Type 2 diabetes mellitus without complications Type 2 diabetes mellitus without complications [facility] 04/01/2025 Ambulatory Lumbago with sciatica, left side Lumbago with sciatica, left side [facility] 03/31/2025 Ambulatory [facility] 03/19/2025 Ambulatory Dorsalgia, unspecified Dorsalgia, unspecified [facility] 03/19/2025 Ambulatory Morbid (severe) obesity due to excess calories Morbid (severe) obesity due to excess calories [facility] 03/17/2025 Ambulatory [facility] 03/10/2025 Ambulatory Type 2 diabetes mellitus without complications Type 2 diabetes mellitus without complications [facility] 03/02/2025 Ambulatory Amos's esophagus without dysplasia Amos's esophagus without dysplasia [facility] 02/27/2025 Ambulatory Urinary tract infection, site not specified Urinary tract infection, site not specified [facility] 02/19/2025 Ambulatory Leg Swelling Leg Swelling [facility] 01/28/2025 Ambulatory Type 2 diabetes mellitus without complications Type 2 diabetes mellitus without complications [facility] 01/28/2025 Ambulatory Consult Consult [facility] 01/22/2025 Ambulatory Follow-up Follow-up [facility] 01/01/2025 Ambulatory Morbid (severe) obesity due to excess calories Morbid (severe) obesity due to excess calories [facility] 12/29/2024 Ambulatory Morbid (severe) obesity due to excess calories Morbid (severe) obesity due to excess calories [facility] 12/15/2024 Ambulatory [facility] 11/25/2024 Ambulatory [facility] 11/25/2024 Ambulatory Pain in right knee Pain in right knee [facility] 11/25/2024 Ambulatory [facility] 11/03/2024 Ambulatory Occlusion and stenosis of bilateral carotid arteries Occlusion and stenosis of bilateral carotid arteries [facility] 08/04/2024 Ambulatory Occlusion and stenosis of bilateral carotid arteries Occlusion and stenosis of bilateral carotid arteries [facility] 08/04/2024 Observation Headache, unspecified Headache, unspecifi ed [facility] 01/06/2024 Ambulatory Hypotension, unspecified Hypotension, unspecified [facility] 08/12/2023 Ambulatory [facility] 08/01/2023 Emergency Osteoarthritis of hip, unspecified Osteoarthritis of hip, unspecified [facility] 06/13/2023 Care Team Organization Name Specialty Phone Email Start Date End Da te [facility] BRITT HENRY Primary Care 11/04/2024 [facility] 10/21/2023 [facility] VINI GONGORA Primary Care 07/30/2023 [facility] 06/13/2023 12/10/2024 [facility] 06/13/202306/01 [facility] VINI GONGORA Primary Care
--- OUTSIDE RECORDS SUMMARY | 2025-04-01 13:03 | XMS_ITS | Encounter Summary ---
Author Organization [facility] Address [address] [place] [id number] Care Team Providers Care Circuit Judge Name Role Phone Ranjana Villarreal PA-C Primary Care Provi erika Encounter Details Date Type Department Care Team (Late st Contact Info) Description 12/25/2024 Scanned Document [facility] Nephrology, Scan Social History [...] Care Team (Late st Contact Info) Description 04/08/2025 2:30 PM EDT Treatment [facility] [address] [place] [address] Rubi Woo, PT [address] [place] [address] 04/10/2025 9:30 AM EDT Treatment [facility] [address] [place] [address] Rubi Woo, PT [address] [place] [address] 04/13/2025 12:30 PM EDT Treatment [facility] [address] [place] [address] Rubi Woo, PT [address] [place] [address] 04/17/2025 12:30 PM EDT Treatment [facility] [address] [place] [address] Rubi Woo, PT [address] [place] [id number] 04/20/2025 12:30 PM EDT Treatment [facility] [address] [place] [address] Rubi Woo, PT [address] [place] [address] 04/21/2025 3:15 PM EDT Consult [facility] [address] [place] [address] Marc Reynolds MD [address] [place] [address] [address] [place] [address] 04/22/2025 11:30 AM EDT Treatment [facility] [address] [place] [address] Rubi Woo, PT [address] [place] [address] 04/30/2025 8:30 AM EDT Evaluation [facility] [address] [facility] [place] [phone] Dianne Mackay, PA [address] [address] Jelani Hall, PT [address] [place] [address] 05/06/2025 8:00 AM EDT Telemedicine Clinical Support [facility] [address] [place] [phone] Meredith Waters NP [address] [place] [address] [address] [address] [place] [address] 05/07/2025 8:00 AM EDT [facility] [address] [address] Jared Rousseau MD [address] [place] [address] 05/07/2025 9:15 AM EDT Treatment [facility] [address] [facility] [place] [phone] Dianne Mackay, PA [address] [address] Jelani Hall, PT [address] [place] [address] 06/18/2025 11:20 AM EDT Consult [facility] [address] [phone] Ranjana Villarreal PA-C [address] [place] [address] Maria D Hinojosa, IN[employer] [address] [place] [address] 06/23/2025 1:15 PM EDT Telemedicine [facility] [place] [address] [place] [phone] Rebecca Angel, INST[employer]ER [employer] [address] [place] [address] 07/22/2025 9:30 AM EDT Office Visit [address] [place] [phone] Ranjana Villarreal PA-C [address] [place] [address] documented as of this encounter Visit Diagnoses Not on filedocumented in this encounter Care Teams Circuit Judge Relationship Specialty Start Date End Date Ranjana Villarreal PA-C [address] [place] [address] PCP - General Internal Medicine 11/03/24 documented as of this encounter
[2025-04-01 15:07] LABS: Anion Gap 13 (12-20); Blood Urea Nitrogen 37 mg/dL (9-16); Calcium 9.4 mg/dL (8.4-10.2); Carbon Dioxide 28 mmol/L (22-29); Chloride 92 mmol/L (96-108); Estimated Glomerular Filt Rate 19; Potassium 5.3 mmol/L (3.3-5.1); Sodium 128 mmol/L (135-145)
== END 2025-04-01 12:34 | disposition home or self-care (01) ==
LOC: HO.HKASLDS 12:33
PROVIDERS: Visit Provider Internal Medicine Hypertension Specialist
DX: E87.5 Hyperkalemia (principal); N18.9 Chronic kidney disease, unspecified; I10 Essential (primary) hypertension
CPT/HCPCS: 36415; 80048

== ENCOUNTER 2025-04-29 16:18 | Outpatient (AMB) | payer BC, SELFPAY ==
--- NOTE | 2025-04-29 16:19 | HO.NEPHOV_ITS ---
Vital Signs 04/29/25 16:20 Height 5 ft 5 in Weight 276 lb BMI 45.9 BP 116/80 Blood Pressure Location Rt brachial Position Sitting Pulse 88 Pulse Source Pulse Oximeter Pulse Oximetry (%) 98 Oxygen Delivery Method Room Air Intake Visit Reasons: 5 week f/u Printing Specialist Required: No Accompanied by: Self / Same As Patient Allergies cephalexin Allergy (Intermediate, Verified 04/29/25 16:22) Rash metformin Adverse Reaction (Verified 04/29/25 16:22) diarrhea and vomiting Medication List - Last Reconciled 04/29/25 by Abhijit Ramires MD acetaminophen ER 650 mg PO Q12H PRN albuterol sulfate 90 mcg/actuation 2 puffs PO Q4-6H PRN amlodipine 5 mg PO DAILY ascorbic acid (vitamin C) 1 g PO DAILY 90 days aspirin 81 mg PO DAILY atorvastatin 80 mg PO DAILY blood-glucose sensor (Dexcom G6 Sensor device) As directed blood-glucose transmitter (Dexcom G6 Transmitter device) As directed budesonide-formoterol 160-4.5 mcg/actuation (Symbicort) 2 puffs inhalation Q12H bupropion HCl XL 300 mg PO DAILY estradiol 0.01%(0.1mg/gram) 2 grams vaginal DAILY 90 days evolocumab (Repatha SureClick) 140 mg subcut Q2W 90 days fluticasone propionate 50 mcg/actuation (Flonase Allergy Relief) 1 spray intranasal DAILY gabapentin 300 mg PO TID hydrochlorothiazide 25 mg PO DAILY hydroxyzine HCl 10 mg PO DAILY PRN insulin aspart (niacinamide) 100 unit/mL (3 mL) (Fiasp FlexTouch U-100 Insulin) 10 units subcut TID insulin glargine (Basaglar KwikPen U-100 Insulin) 50 units subcut QPM insulin lispro (Humalog KwikPen (U-100) Insulin) 10 sliding scale doses subcut USEASDIRECTD ipratropium bromide 2 sprays intranasal BID ipratropium-albuterol 0.5 mg-3 mg(2.5 mg base)/3 mL 3 mL inhalation Q6H PRN lisinopril 10 mg See Protocol PO DAILY meloxicam 7.5 mg PO DAILY methenamine hippurate 1 g PO DAILY 90 days methocarbamol 750 mg PO Q6H PRN naltrexone 25 mg PO DAILY nitrofurantoin monohyd/m-cryst 100 mg (Macrobid) 100 mg PO BID 14 days pantoprazole 40 mg PO DAILY polyethylene glycol 3350 (Miralax) 17 grams PO DAILY 30 days primidone mg PO DAILY trazodone mg PO HPI Comments Details: Ewelina is a pleasant 59 year woman with a history of longstanding diabetes mellitus. She has been referred for evaluation of CKD. Baseline creatinine is around 1.0-1.2 mg/dL about a year ago. In March of 2024 she was prescribed Ozempic. After few doses she was sick and she was having vomiting. She was hospitalized and received IV hydration. In March creatinine peaked to 2.2 mg/dL. Creatinine has been staying around 1.6 mg/dL for the last 3 months and she has been for further evaluation. She has had recurrent UTIs. The recent abdominal ultrasonogram showed unremarkable kidneys without any hydronephrosis. She has a history of occipital neuralgia. History of flu significant obesity in the hypertension. History of Charcot joint 07/23/24 Doing well Still has urinary symptoms and feels she might have UTI 12/24/24. Doing better Gained weight;BP elevated ; EAts popcorn everyday;No further UTI 04/01/25 The patient is a 59-year-old female presenting with hyperkalemia and back pain. The hyperkalemia was identified with a potassium level of 5.8 mmol/L, elevated from a previous level of 5.2 mmol/L in November. The patient has been on lisinopril for a while, and recently started taking meloxicam, which may have contributed to the increased potassium levels. The patient has been advised to discontinue meloxicam due to its potential to elevate potassium levels, especially in combination with lisinopril. The patient reports back pain for which she was prescribed meloxicam and a muscle relaxant. She has a history of diabetes mellitus and was advised against taking NSAIDs due to potential renal implications. The patient has experienced increased leg swelling, which is more pronounced than before, and is currently taking hydrochlorothiazide for fluid management. The patient's weight has decreased from 290 pounds in November to 281 pounds recently, despite the swelling. The patient denies any significant changes in diet that could have contributed to the hyperkalemia, such as increased intake of potassium-rich foods. 04/29 BP low Light headed [facility] Medical History Carotid stenosis, bilateral Elevated serum GGT level Atherosclerotic cardiovascular disease Non-ST elevation MN (NSTEMI) Action tremor Chronic headaches GERD (gastroesophageal reflux disease) Hyperlipidemia Depression Pneumonia Sepsis Barretts esophagus Dyslipidemia HTN (hypertension) Charcot's joint of foot Diabetes Surgical History History of esophagogastroduodenoscopy (EGD) Hx of colonoscopy H/O foot surgery Hx of cholecystectomy H/O: hysterectomy Family History Son Substance use disorder Father Substance use disorder Mother Substance use disorder Family/Other Substance use disorder Maternal Grandfather Heart problem Maternal Uncle Heart problem Paternal Grandmother Heart problem Sister Heart problem Social History Household Members: None Housing: Condominium Do you presently have visiting nurse or other home services: No Alcohol intake: never Patient Tobacco Use Status: Never used Tobacco e-Cigarette/Vaping Use: Never Used Second Hand Smoke Exposure: No Advance Directives Date on File: 07/25/23 service: No Current occupational status: employed 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 Current occupational exposures/hazards: No Cognitive needs: No Hearing needs: No Vision needs: No Physical Exam Vital Signs: Last Vital Signs Pulse 88 04/29/25 16:20 BP 116/80 04/29/25 16:20 Pulse Ox 98 04/29/25 16:20 Oxygen Delivery Method Room Air 04/29/25 16:20 BMI result Body Mass Index 45.9 Results Reviewed Nephrology Results: Sodium, (135-145) 128 mmol/L L 04/01/25 Potassium, (3.3-5.1) 5.3 mmol/L H 04/01/25 Chloride, (96-108) 92 mmol/L L 04/01/25 Carbon Dioxide, (22-29) 28 mmol/L 04/01/25 BUN, (9-16) 37 mg/dL H 04/01/25 Creatinine, (0.5-1.4) 2.54 mg/dL H 04/01/25 Calcium, (8.4-10.2) 9.4 mg/dL 04/01/25 Urine Protein, (Neg-Trace) See Note mg/dL 01/22/25 Assessment & Plan Assessment & Plan (1) HTN (hypertension): Code(s): I10 - Essential (primary) hypertension Category: Medical (2) Hyperkalemia: Code(s): E87.5 - Hyperkalemia Category: Medical (3) CKD (chronic kidney disease): Code(s): N18.9 - Chronic kidney disease, unspecified Category: Medical (4) Obesity: Code(s): E66.9 - Obesity, unspecified Category: Medical (5) Anemia: Code(s): D64.9 - Anemia, unspecified Category: Medical Qualifiers: Anemia type: iron deficiency Plan Ewelina is a pleasant 59 woman with CKD 3. Differential diagnosis would include diabetic nephropathy. She has significant proteinuria most likely due to diabetic nephropathy. Nondiabetic causes seem unlikely based on serologies Baseline creatinine is around 1.4 to 1.6 Based on recent imaging she has no evidence of obstructive uropathy. Mild hypokalemia in the setting of CKD. Hypertension blood pressure well controlled. Recommendation Keep on low-sodium diet. She should stay on low-potassium diet as well. I will continue the YARED inhibitor for renal protection. Maintain blood pressure less than 130/80 Will benefit from weight loss Maintain A1C < 7% Continue to avoid nephrotoxic agents including NSAIDs. Goal is to slow the progression of renal disease Unable to use SGLT-2 inhibitor due to h/o DKA BP sub optimal Add low dose HCTZ 12.5 mg and titrate dose. . 04/01/2025 - Stop taking meloxicam immediately. - Schedule a blood test for Sunday to check potassium levels and kidney functio n. - Increase hydrochlorothiazide dosage as prescribed to manage swelling. - Use acetaminophen for pain relief instead of NSAIDs. - Monitor for any changes in swelling and report if it does not improve. . 04/29 Labs next week DC lisinopril bcas bp was low Orders: Orders Basic Metabolic Panel 1 Week E87.5 - Hyperkalemia, N18.9 - Chronic kidney disease, unspecified UA and rflx microscopic 1 Week E87.5 - Hyperkalemia, N18.9 - Chronic kidney disease, unspecified Coding Level of Care Code Est Pt Level 4 (94728) Diagnoses HTN (hypertension) I10 Hyperkalemia E87.5 CKD (chronic kidney disease) N18.9 Obesity E66.9 Anemia D64.9 Anemia type: iron deficiency
[2025-04-29 16:20] VITALS: BP 116/80; PULSE 88; O2SAT 98; BMI 45.9
--- OUTSIDE RECORDS SUMMARY | 2025-04-29 16:37 | XMS_ITS | Clinical Summary ---
Author Organization [facility] Address [address] [place] [address] Phone Care Team Providers Care Shredding Machine Operator Name Role Phone Joel Alegria NP Primary Care Provider Immunizations Name Administration Dates Next Due Moderna SARS-CoV-2 COVID-19, mRNA, LNP-S, preservative free 12/29/2020,12/01/2020 Surgical History Surgery Date Site/Laterality Comments CHOLECYSTECTOMY 2000 PROCEDURE: HISTORICAL CHOLECYSTECTOMY ENDOMETRIAL ABLATION PROCEDURE: MA ENDOMETRIAL ABLTJ THERMAL W/O HYSTEROSCOPIC GUID; COMMENT: done twice OTHER SURGICAL HISTORY PROCEDURE: ---- OTHER ----; COMMENT: skin graft for diabetic ulcer SECTION 03/1997 PROCEDURE: HISTORICAL DELIVERY COLONOSCOPY 06/18/2009 PROCEDURE: HISTORICAL COLONOSCOPY; COMMENT: Normal to cecum, repeat 10 years (small grade 2 internal hemorrhoids) UPPER GASTROINTESTINAL ENDOSCOPY 11/26/2001 PROCEDURE: UPPER GI ENDOSCOPY/EXAM; COMMENT: Normal, iron deficiency anemia most likely r/t a obgyn hospitalist physician source. OTHER SURGICAL HISTORY 2004 PROCEDURE: HISTORICAL [...] ED evaluation 06/29/18, referred to Dr. Ewing, [facility] wound care Managed with IV abx via PICC line through ID, eval with Dr. Harris for skin graft 08/2018 Anxiety 09/17/2018 DX:Anxiety; COMM ENT: Panic attacks Diabetic neuropathy ([facility] V24, [facility] V28) 09/26/2018 DX:Diabetic neuropathy ([facility]) Umbilical hernia 09/26/2018 DX:Umbilical he rnia Type 2 diabetes mellitus wit h neurological manifestations ([facility] V24, [facility] V28) 09/26/2018 DX:Type 2 diabetes mellitus with neurological manifestations ([facility]); COMMENT: Endo consult with Dr. Garces Type 2 diabetes mellitus wit h renal manifestations ([facility] V24, [facility] V28) 01/15/2019 DX:Type 2 diabetes mellitus with renal manifestations ([facility]) Chronic gastric ulcer DX:Chronic gastric ulcer Depression DX:Depression ALIYAH on CPAP 01/15/2019 DX:ALIYAH on CPAP GERD (gastroesophageal reflux disease) 01/15/2019 DX:GERD (gastroesophageal reflux disease) Type 2 diabetes mellitus wit h vascular disease ([facility] V24, [facility] V28) 10/14/2012 DX:Type 2 diabetes mellitus with vascular disease ([facility]) IBS (irritable bowel syndrome) 01/15/2019 D X:IBS (irritable bowel syndrome) Carpal tunnel syndrome of left wrist 01/15/2019 DX:Carpal tunnel syndrome of left wrist Amos's esophagus 03/23/2022 DX:Amos's esophagus Waterfall grade A esophagitis 03/23/2022 DX:Waterfall grade A esophagitis Diabetes mellitus ([facility] V 24, [facility] V28) DX:Diabetes mellitus ([facility]) Hypertension DX:Hypertension Hypercholesterolemia DX:Hypercho lesterolemia Anxiety DX:Anxiety GERD (gastroesophageal reflux disease) DX:GERD (gastroesophageal reflux disease) Family History Medical History Relation Name Comments Other: Graves Disease Brother Heart failure Maternal Grandfather Stroke Other cancer Maternal Grandmother Liver Breast cancer Mother Heart failure Paternal Grandfather CA, Hy pertension Other cancer Paternal Grandmother Kidney [...] 2) 2016 Colorectal Cancer Screening: Colonoscopy 09/09/2022 HIV Screening 09/09/2022 Hepatitis C Screening 09/09/2022 Social Influencers of Health Screening 09/09/2022 Diabetes: Annual Urine Albumin-Creatinine Ratio (uACR) 09/16/2022 Diabetes: Blood Sugar Control Test (HGBA1C) 01/09/2024 07/10/2023 COVID-19 Vaccine ( season) 2024 12/29/2020, 12/01/2020 Depression Screening 10/01/2024 DTaP,Tdap,and Td Vaccines (2 - Td or [...] Signed Date: 08/05/2024 08:54 ET Workstation ID: [id number] Transcribed By: Self Edit Transcribed Date: 08/05/2024 08:44 ET Narrative 08/05/2024 8:54 AM EST EXAM: SCREENING MAMMOGRAPHY, BILATERAL HISTORY: SCREENING. Mother diagnosed with breast cancer age 56. COMPARISON: 03/09/2023, 12/20/2021, 09/10/2020 TECHNIQUE: Synthesized CC and MLO projections of each breast. Tomosynthesis of each breast in the CC and MLO projections. ADDITIONAL IMAGING: None Computer-aided detection was employed with the Kionix AI 3-D. TISSUE DENSITY: There are scattered [...] None Computer-aided detection was employed with the Kionix AI 3-D. TISSUE DENSITY: There are scattered [...] Signed Date: 08/05/2024 08:54 ET Workstation ID: [id number] Transcribed By: Self Edit Transcribed Date: 08/05/2024 08:44 ET us Self Referral Sppl IMG BI PROCEDURES Final Resul t from Last 3 Months or Most Recently Relevant to Health Maintenance [place] [address] [place] [address] ([facility]) Care Teams Shredding Machine Operator Relationship Specialty Start Date End Date Joel Alegria NP [address] [place], [place] PCP - General Family Medicine 08/01/24
--- OUTSIDE RECORDS SUMMARY | 2025-04-29 16:37 | XMS_ITS | Clinical Summary ---
Author Organization [facility] Address [address] [place] [address] Care Team Providers Care Oven Heater Helper Name Role Phone Unavailable Primary Care Provider [...] 07/01, 08/01/2016, Additional history exists HPV Vaccine (No Doses Required) Completed Hep A Aged Out No longer eligi ble based on patient's age to complete this topic Hib Aged Out No longer eligi ble based on patient's age to complete this topic Meningococcal ACWY Aged Out No longer eligible based on patient's age to complete this topic
--- OUTSIDE RECORDS SUMMARY | 2025-04-29 16:37 | XMS_ITS | Clinical Summary ---
Author Organization [facility] Address [address] [place] [address] Care Team Providers Care Radiologist Name Role Phone Unavailable Primary Care Provider [...] Td or Tdap) 10/22/2024 10/22/2014 Influenza Vaccine (#1) 2025 , 07/18/2018, 08/01/2016, Additional history exists Pneumococcal Vaccine Aged Out No long er eligible based on patient's age to complete this topic RSV Ped < 20 months Aged Out No longe r eligible based on patient's age to complete this topic Ewelina Mathis Personal/Family Self 1965 A [address] [place] [address]
--- OUTSIDE RECORDS SUMMARY | 2025-04-29 16:37 | XMS_ITS | Encounter Summary ---
Author Organization [facility] Address [address] [place] [address] Care Team Providers Care Farm Machine Tender Name Role Phone Ranjana Villarreal PA-C Primary Care Provi erika Encounter Details Date Type Department Care Team (Late st Contact Info) Description 12/25/2024 Scanned Document [facility] Nephrology, Scan Social History Tobacco [...] Care Team (Late st Contact Info) Description 05/01/2025 1:00 PM EDT Treatment [facility] [address] [address] Rubi Woo, PT [address] [place] [address] 05/06/2025 8:00 AM EDT Telemedicine Clinical Support [facility] [address] [place] [address] 1[address] [place] [address] Meredith Waters NP [address] [facility] [address] [address] [place] [address] 05/07/2025 8:00 AM EDT Office [facility] [address] [address] Jared Rousseau MD [address] [place], [place] [id number] 05/07/2025 9:15 AM EDT Evaluation [facility] [address] [place] [address] Dianne Mackay, PA [address] [address] Jelani Hall, PT [address] [place] [address] 05/08/2025 2:00 PM EDT [facility] [address] [address] Rubi Woo, PT [address] [place] [address] 05/15/2025 12:30 PM EDT Treatment [facility] [address] [address] Rubi Woo, PT [address] [place] [address] 05/22/2025 1:00 PM EDT Treatment [facility] [address] [address] Rubi Woo, PT [address] [place] [address] 05/29/2025 12:30 PM EDT Treatment [facility] [address] [address] Rubi Woo, PT [address] [place] [address] 06/18/2025 11:20 AM EDT Consult [facility] Medical [facility] [address] [place] [address] Ranjana Villarreal PA-C [address] [place] [address] Maria D Hinojosa, MARCOS [address] [place] [address] 06/23/2025 1:15 PM EDT Telemedicine [facility] [address] [facility] 2nd [place] [phone] Rebecca Angel APRN [address] [facility] [address], [place] [address] 07/14/2025 8:15 AM EDT [facility] [address] [address] Marc Reynolds MD [address] [facility] [address] [place], [place] [address] 07/22/2025 9:30 AM EDT Office Visit [facility] [address] [facility] [address] [place] [address] Ranjana Villarreal PA-C [address] [place] [address] documented as of this encounter Visit Diagnoses Not on filedocumented in this encounter Care Teams Farm Machine Tender Relationship Specialty Start Date End Date Ranjana Villarreal PA-C [address] [place] [address] PCP - General Internal Medicine 11/03/24 documented as of this encounter
--- OUTSIDE RECORDS SUMMARY | 2025-04-29 16:37 | XMS_ITS | Continuity of Care Document ---
Author Organization [facility] [address] [facility] [address] [place] [address] Phone [phone] Care Team Providers Care Legal Internship Name Role Phone Joel Alegria Care Team Information Band Builder + [phone] Problems Active Problems Provider Date Type 2 [...] Female Sex Unknown Lives With Alone Occupation [employer] Work Status Full-Time Employment ETOH Use Rarely consumes alcohol Tobacco Use Start: Unknown Patient has never smoked Allergies and adverse reactions Active Allergies Criticality Reaction Severity Comments Date Metformin Unable to assess criticality Diarrhea 08/10/2023 Inactive Allergies No Known Drug Allergies 1 10/10/2022 Medications Active Medications SIG Qnty Indications Order ing Provider Date Humalog Asycbgd055Oics/ML Solution Pen-Inject inject 10 units subcutaneously three times daily, before meals 30ml E11.9 Susan Bui M.D. 04/24/2025 Novolog Zalpodr836Kbil/ML Solution Pen-Inject inject 10 subcutaneously units 3 times a day before meals 30ml E11.42 Susan Bui M.D. 06/30/2024 Baqsimi One Gkyi9wh/Dose Powder spray into nostril as needed for low sugar reaction 1units Susan Bui M.D. 02/14/2024 Lantus Keqvmazs238Llzp/ML Solution Pen-Inject inject 50 units daily as directed 45ml E11.42 Susan Bui M.D. 10/26/2023 Vwjdrvbcx40vr Tablets Take 1 Tablet By Mouth Every Day For 30 Days Lynnette Cardona MD Atorvastatin Krsydxv56rz Tablets 1 by mouth every day Unknown Amlodipine Gldcscxt2lr Tablets Take 1 Tablet (5 MG Total) By Mouth Daily. Unknown Repatha Iphdpvoey028uh/ml Solution Auto-Inject inject 1 syringe under the skin every 2 weeks Unknown Aspirin 8181mg Tablets DR 1 by mouth every day Susan Bui M.D. Hydroxyzine ZTO31ps Tablets Take 1 Tablet By Mouth Every Day as Needed Unknown Dexcom G6 SensorMisc use 1 sensor every 10 days 9units E11.42 Susan Bui M.D. Dexcom G6 SensorMisc Please See Attached For Detailed Directions Unknown Xyanmjfyyj323fd Capsules Take 2 Capsule By Mouth Three Times A Day Unknown Dexcom G6 TransmitterMisc To Use With Sensors DX E11.42 1units E11.42 Susan Bui M.D. Pantoprazole Eqqbqs32is Tablets DR Take 1 Tablet By Mouth Every Morning (Before Breakfast) For 360 Days. Unknown Albuterol Sulfate JLB337(90Base) mcg/Act Aerosol Take 2 Puffs By Mouth Every 4 Hours as Needed For Wheeze Unknown Ipratropium Bromide0.06% Solution Administer 2 Sprays Into Each Nostril Every 6 Hours as Needed For Rhinitis. Unknown Hpnbyfzxlp53vl Tablets Take 1 Tablet By Mouth Every Day Unknown Hyoscyamine Sulfate0.125mg Tablets Take 1 Tablet By Mouth 4 Times Daily as Needed For Cramping Or Diarrhea For Up T Unknown Basaglar Nrdkbvb707Erxx/ML Solution Pen-Inject Inject 55 Units Into The Skin AT Bedtime 60ml E11.42 Susan Bui M.D. Trazodone XXX809bn Tablets Take 1 Tablet By Mouth Everyday [...] Inhouse Hemoglobin A1c 6.9% Gad65 Autoantibodies 08/15/2023 [facility] Gad65 Autoantibodies <5.0 1 Islet Cell Antibody 512 08/15/2023 [facility] Islet Cell Antibody 512 <7.5 2 Insulin Antibody 08/15/2023 [facility] Insulin Antibody 12 High 3 1 Reference range: 0.0 to 5.0 Unit: U/mL Test performed at [address] [address] 2 Unit: U/mL (NOTE) Reference Range: <7.5 Negative > or EQ 7.5 Positive Test performed by [facility], [address] [place] [address] 3 Unit: uU/mL (NOTE) This test is also known as insulin autoantibody or IAA. This test was developed and its performance characteristics determined by [facility]. It has not been cleared or approved by the Food and Drug Administration. Reference Range: <5.0 Negative > or EQ 5.0 Positive Test performed by [facility], [address] [facility], [place] [address] Procedures Date Code Description Status 08/10/2023 44456 Collection Of Venous Blood B y Venipuncture [...] Bui M.D. Plan of Treatment Future Appointment(s):* 07/31/2025 2:15 pm - Susan Bui M.D. at Main Office 08/10/2023 - Susan Bui M.D.* E11.42 Type 2 diabetes mellitus with diabetic polyneuropathy Functional Status Description No Information Available Mental Status Description No Information Available Referrals Refer to Dr Reason for Referral Status Appt Chip Meyer MD POSSIBLE SEIZURES Closed [address] [facility] [address] [place] [address] [phone]
== END 2025-04-29 16:34 | disposition home or self-care (01) ==
LOC: HO.HKAE 16:19
PROVIDERS: PCP Physician Assistant Medical; Visit Provider Internal Medicine Hypertension Specialist
DX: I12.9 Hypertensive chronic kidney disease with stage 1 through stage 4 chronic kidney disease, or unspecified chronic kidney disease (principal); E87.5 Hyperkalemia; N18.9 Chronic kidney disease, unspecified; E66.9 Obesity, unspecified; D64.9 Anemia, unspecified
CPT/HCPCS: 99214

== ENCOUNTER 2025-05-14 12:27 | Outpatient (AMB) | payer BC, SELFPAY ==
[2025-05-14 12:35] VITALS: BP 124/78; PULSE 87; BMI 45.9
--- NOTE | 2025-05-14 12:35 | A.OFFVIS_ITS ---
Vital Signs 05/14/25 12:35 Height 5 ft 5 in Weight 275 lb 9.245 oz BMI 45.9 BP 124/78 Blood Pressure Location Lt brachial Position Sitting Pulse 87 Pulse Source Monitor Intake Visit Reasons: 1 yr f/up s/p carotid us Allergies cephalexin Allergy (Intermediate, Verified 04/29/25 16:22) Rash metformin Adverse Reaction (Verified 04/29/25 16:22) diarrhea and vomiting Medication List - Last Reconciled 05/14/25 by Ashok Robison MD acetaminophen ER 650 mg PO Q12H PRN albuterol sulfate 90 mcg/actuation 2 puffs PO Q4-6H PRN amlodipine 5 mg PO DAILY ascorbic acid (vitamin C) 1 g PO DAILY 90 days aspirin 81 mg PO DAILY atorvastatin 80 mg PO DAILY blood-glucose sensor (Intelomedcom G6 Sensor device) As directed blood-glucose transmitter (Dexcom G6 Transmitter device) As directed budesonide-formoterol 160-4.5 mcg/actuation (Symbicort) 2 puffs inhalation Q12H bupropion HCl XL 300 mg PO DAILY estradiol 0.01%(0.1mg/gram) 2 grams vaginal DAILY 90 days evolocumab (Repatha SureClick) 140 mg subcut Q2W 90 days fluticasone propionate 50 mcg/actuation (Flonase Allergy Relief) 1 spray intranasal DAILY gabapentin 600 mg (2 x 300 mg) PO TID 90 days hydrochlorothiazide 25 mg PO DAILY hydroxyzine HCl 10 mg PO DAILY PRN insulin glargine (Basaglar KwikPen U-100 Insulin) 50 units subcut QPM insulin lispro (Humalog KwikPen (U-100) Insulin) 10 sliding scale doses subcut USEASDIRECTD ipratropium bromide 2 sprays intranasal BID ipratropium-albuterol 0.5 mg-3 mg(2.5 mg base)/3 mL 3 mL inhalation Q6H PRN methenamine hippurate 1 g PO DAILY 90 days methocarbamol 750 mg PO Q6H PRN naltrexone 25 mg PO DAILY nitrofurantoin monohyd/m-cryst 100 mg (Macrobid) 100 mg PO BID 10 days pantoprazole 40 mg PO DAILY polyethylene glycol 3350 (Miralax) 17 grams PO DAILY 30 days primidone 50 mg PO BEDTIME 90 days trazodone mg PO HPI Comments Details: Ewelina returns for follow-up. Originally seen in consultation regarding NSTEMI. She has multiple cardiovascular factors including obesity, type 2 diabetes, hypertension, dyslipidemia. She states she had initially gestational diabetes in her 20s but then has been a diabetic for the last 15 years or so. Currently on insulin. In 2022, she went to [place] for vacation in [place]. However, she was sick and got admitted to a local hospital. Per discharge summary, treat as DKA, sepsis from strep pneumonia and respiratory failure. In that context, slight troponin elevation thought to be from demand related NSTEMI. After getting discharged from [place] hospital, she came here but she was still sick and it seems she got admitted to [facility] with another diagnosis of pneumonia/respiratory failure. At that time, troponins were unremarkable. Then underwent cardiac catheterization but no significant disease. From cardiac, she states she feels fine. No symptoms like angina. [facility] Medical History Carotid stenosis, bilateral Elevated serum GGT level Atherosclerotic cardiovascular disease Non-ST elevation DC (NSTEMI) Action tremor Chronic headaches GERD (gastroesophageal reflux disease) Hyperlipidemia Depression Pneumonia Sepsis Barretts esophagus Dyslipidemia HTN (hypertension) Charcot's joint of foot Diabetes Surgical History History of esophagogastroduodenoscopy (EGD) Hx of colonoscopy H/O foot surgery Hx of cholecystectomy H/O: hysterectomy Family History Son Substance use disorder Father Substance use disorder Mother Substance use disorder Family/Other Substance use disorder Maternal Grandfather Heart problem Maternal Uncle Heart problem Paternal Grandmother Heart problem Sister Heart problem Social History Household Members: None Housing: Condominium Do you presently have visiting nurse or other home services: No Alcohol intake: never Patient Tobacco Use Status: Never used Tobacco e-Cigarette/Vaping Use: Never Used Second Hand Smoke Exposure: No Advance Directives Date on File: 07/25/23 service: No Current occupational status: employed 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 Current occupational exposures/hazards: No Cognitive needs: No Hearing needs: No Vision needs: No Review of Systems Const All systems reviewed & are unremarkable except as noted in HPI and below Reports as per HPI and Reports no additional complaints Eyes Reports as per HPI and Denies no additional complaints ENT Denies no additional complaints and Reports as per HPI Card Reports as per HPI, Reports no additional complaints, Denies acrocyanosis, Denies chest pain, Denies leg edema, Denies lightheadedness, Denies palpitations and Denies dyspnea Resp Reports as per HPI, Denies no additional complaints and Denies dyspnea GI Reports as per HPI and Denies no additional complaints Reports as per HPI Musc Reports no additional complaints and Reports as per HPI Skin/Breast Reports system reviewed and no additional complaints, except as documented Neuro Reports no additional complaints and Reports as per HPI Psych Reports no additional complaints and Reports as per HPI Endo Reports no additional complaints, Reports as per HPI and Denies palpitations Gary/Lymph Reports no additional complaints and Reports as per HPI Aller/Immun Reports no additional complaints and Reports as per HPI Physical Exam Vital Signs: Last Vital Signs Pulse 87 05/14/25 12:35 BP 124/78 05/14/25 12:35 BMI result Body Mass Index 45.9 Const General: comfortable and no acute distress Orientation/consciousness: patient oriented x3 HEENT Other: Unremarkable Head: Yes normal to inspection Neck Neck: Yes normal visual inspection Chest Chest palpation & inspection: normal inspection of the chest Resp Auscultation: clear to auscultation bilaterally Cardio Palpation: normal PMI Heart sounds: S1 normal heart sound present, S2 normal heart sound present, no gallops, no murmurs and no rubs GI Palpation (GI): Soft to palpation Back/Spine/Pelvis Other: unremarkable Skin General skin exam: no rashes or lesions noted Neuro General: patient oriented x3 Extrem General: Yes normal to inspection Psych Mental Status: mental status grossly normal Office Procedures EKG Details: EKG with underlying sinus rhythm at 87/Min; rightward axis; low-voltage QRS complexes; [place] [address]-Cpgihczljcrxbocrp, Complete Assessment & Plan Assessment & Plan (1) Atherosclerotic cardiovascular disease: Code(s): I25.10 - Atherosclerotic heart disease of [place] coronary artery without angina pectoris Category: Medical (2) Diabetes mellitus with hyperglycemia: Code(s): E11.65 - Type 2 diabetes mellitus with hyperglycemia Category: Medical (3) HTN (hypertension): Code(s): I10 - Essential (primary) hypertension Category: Medical (4) CKD (chronic kidney disease): Code(s): N18.9 - Chronic kidney disease, unspecified Category: Medical Plan Obesity, Longstanding diabetes, chronic kidney disease, demand related NSTEMI in setting of infection, mild vascular disease. Echocardiogram with LVEF of 65-70% with mild diastolic dysfunction. No significant valvular issues. Ascending aortic size 3.7 cm. Myocardial perfusion imaging study shows ischemia/infarct pattern in the distal anterior wall/apex but could not exclude soft tissue attenuation artifact. Cardiac catheterization with mild disease in the LAD and minimal irregularities in circumflex but otherwise normal coronaries. [facility], 12/2023-25% stenosis at the origin of bilateral internal carotid artery. Carotid ultrasound 08/2024 shows < 50% stenosis bilaterally. Overall, main recommendation is to still lose weight and she needs to try as much able. Otherwise, optimal management of diabetes and dyslipidemia. She is doing well on statins and Repatha. However, she feels there may be an insurance issue moving forward, but we will send a refill. Last LDL 53 mg/dL. In the past, as much as 135 mg/dL. Follow up in one year. Discussion Notes During the consultation, I discussed with the patient the importance of monitoring her blood pressure accurately and the potential need to adjust her antihypertensive medication if readings remain high. We reviewed the impact of NSAIDs on her kidney function and emphasized avoiding such medications to prevent further damage. We also addressed the insurance issues with Repatha and the steps needed for prior authorization. Patient was informed and verbally consented to the use of an ambient scribe for clinic note documentation during this visit. Orders: Orders Liver Panel Today I25.10 - Atherosclerotic heart disease of [place] coronary artery without angina pectoris Lipid Panel Today E78.5 - Hyperlipidemia, unspecified, I25.10 - Atherosclerotic heart disease of [place] coronary artery without angina pectoris Medications: Refilled evolocumab (Repatha SureClick) 140 mg subcut Q2W 7 mL 3RF 90 days I25.10 - Atherosclerotic heart disease of [place] coronary artery without angina pectoris Patient Instructions: - Monitor blood pressure at home and compare with pharmacy readings. - Avoid NSAIDs to protect kidney function. - Follow up with semiconductor technician for blood sugar management. - Complete cholesterol and liver function tests as advised. - Discuss Repatha prescription with insurance for prior authorization. Coding Level of Care Code Est Pt Level 4 (39648) Complex EM visit Add On G2211 Diagnoses Atherosclerotic cardiovascular disease I25.10 Diabetes mellitus with hyperglycemia E11.65 HTN (hypertension) I10 CKD (chronic kidney disease) N18.9 CPT Codes EKG - CPT: 20459-Gxjcgfirgipfyauhe, Complete ([id number])
--- OUTSIDE RECORDS SUMMARY | 2025-05-14 13:18 | XMS_ITS | Clinical Summary ---
Author Organization [facility] Address [address] [place] [address] Care Team Providers Care Receptionist/Telephone Operator Name Role Phone Unavailable Primary Care [...]
--- OUTSIDE RECORDS SUMMARY | 2025-05-14 13:18 | XMS_ITS | Clinical Summary ---
Author Organization [facility] Address [address] [place] [address] Care Team Providers Care Neon Tube Pumper Name Role Phone Unavailable Primary Care Provider [...] Personal/Family Self 1965 [address] [place] [address]
--- OUTSIDE RECORDS SUMMARY | 2025-05-14 13:18 | XMS_ITS | Continuity of Care Document ---
Author Organization [facility] [address] [place] [address] Phone [phone] Care Team Providers Care Unstacker Name Role Phone Joel Alegria Care Team Information Concrete Mixer Operator Helper + [phone] Problems Active Problems Provider Date Type 2 [...] Female Sex Unknown Lives With Alone Occupation [employer] Work Status Full-Time Employment ETOH Use Rarely consumes alcohol Tobacco Use Start: Unknown Patient has never smoked Allergies and adverse reactions Active Allergies Criticality Reaction Severity Comments Date Metformin Unable to assess criticality Diarrhea 08/10/2023 Inactive Allergies No Known Drug Allergies 1 10/10/2022 Medications Active Medications SIG Qnty Indications Order ing Provider Date Humalog Ajhvkxe492Zafj/ML Solution Pen-Inject inject 10 units subcutaneously three times daily, before meals 30ml E11.9 Susan Bui M.D. 04/24/2025 Novolog Boecgnm333Wfjx/ML Solution Pen-Inject inject 10 subcutaneously units 3 times a day before meals 30ml E11.42 Susan Bui M.D. 06/30/2024 Baqsimi One Lodu2io/Dose Powder spray into nostril as needed for low sugar reaction 1units Susan Bui M.D. 02/14/2024 Lantus Mqmcgiug739Kcmc/ML Solution Pen-Inject inject 50 units daily as directed 45ml E11.42 Susan Bui M.D. 10/26/2023 Bmddfdqce99jl Tablets Take 1 Tablet By Mouth Every Day For 30 Days Lynnette Cardona MD Atorvastatin Byrvivl87ve Tablets 1 by mouth every day Unknown Amlodipine Nawmtznr5ev Tablets Take 1 Tablet (5 MG Total) By Mouth Daily. Unknown Repatha Trmzxbcio870ay/ml Solution Auto-Inject inject 1 syringe under the skin every 2 weeks Unknown Aspirin 8181mg Tablets DR 1 by mouth every day Susan Bui M.D. Hydroxyzine WDW32kd Tablets Take 1 Tablet By Mouth Every Day as Needed Unknown Dexcom G6 SensorMisc use 1 sensor every 10 days 9units E11.42 Susan Bui M.D. Dexcom G6 SensorMisc Please See Attached For Detailed Directions Unknown Vvqblwwppz285ds Capsules Take 2 Capsule By Mouth Three Times A Day Unknown Dexcom G6 TransmitterMisc To Use With Sensors DX E11.42 1units E11.42 Susan Bui M.D. Pantoprazole Nporjz46sp Tablets DR Take 1 Tablet By Mouth Every Morning (Before Breakfast) For 360 Days. Unknown Albuterol Sulfate HTC726(90Base) mcg/Act Aerosol Take 2 Puffs By Mouth Every 4 Hours as Needed For Wheeze Unknown Ipratropium Bromide0.06% Solution Administer 2 Sprays Into Each Nostril Every 6 Hours as Needed For Rhinitis. Unknown Hspfmzwsru45mv Tablets Take 1 Tablet By Mouth Every Day Unknown Hyoscyamine Sulfate0.125mg Tablets Take 1 Tablet By Mouth 4 Times Daily as Needed For Cramping Or Diarrhea For Up T Unknown Basaglar Spkdwps861Lcnm/ML Solution Pen-Inject Inject 55 Units Into The Skin AT Bedtime 60ml E11.42 Susan Bui M.D. Trazodone UIF040jp Tablets Take 1 Tablet By Mouth Everyday [...] Hemoglobin A1c 6.9% Gad65 Autoantibodies 08/15/2023 [facility] Gad65 Autoantibodies <5.0 1 Islet Cell Antibody 512 08/15/2023 [facility] Islet Cell Antibody 512 <7.5 2 Insulin Antibody 08/15/2023 [facility] Insulin Antibody 12 High 3 1 Reference range: 0.0 to 5.0 Unit: U/mL Test performed at [address] [address] 2 Unit: U/mL (NOTE) Reference Range: <7.5 Negative > or EQ 7.5 Positive Test performed by [facility], [address] [place] [address] 3 Unit: uU/mL (NOTE) This test is also known as insulin autoantibody or IAA. This test was developed and its performance characteristics determined by [facility]. It has not been cleared or approved by the Food and Drug Administration. Reference Range: <5.0 Negative > or EQ 5.0 Positive Test performed by [facility], [address] [facility], [place] [address] Procedures Date Code Description Status 08/10/2023 17945 Collection Of Venous Blood B y Venipuncture [...] Chip Meyer MD POSSIBLE SEIZURES Closed [address] [place] [address] [phone]
--- OUTSIDE RECORDS SUMMARY | 2025-05-14 13:18 | XMS_ITS | Clinical Summary ---
Author Organization [facility] Address [address] [place] [address] Phone Care Team Providers Care Liquor Store Manager Name Role Phone Joel Alegria NP Primary Care Provider Immunizations Name Administration Dates Next Due Moderna SARS-CoV-2 COVID-19, mRNA, LNP-S, preservative free 12/29/2020,12/01/2020 Surgical History Surgery Date Site/Laterality Comments CHOLECYSTECTOMY 2000 PROCEDURE: HISTORICAL CHOLECYSTECTOMY ENDOMETRIAL ABLATION PROCEDURE: SD ENDOMETRIAL ABLTJ THERMAL W/O HYSTEROSCOPIC GUID; COMMENT: done twice OTHER SURGICAL HISTORY PROCEDURE: ---- OTHER ----; COMMENT: skin graft for diabetic ulcer SECTION 03/1997 PROCEDURE: HISTORICAL DELIVERY COLONOSCOPY 06/18/2009 PROCEDURE: HISTORICAL COLONOSCOPY; COMMENT: Normal to cecum, repeat 10 years (small grade 2 internal hemorrhoids) UPPER GASTROINTESTINAL ENDOSCOPY 11/26/2001 PROCEDURE: UPPER GI ENDOSCOPY/EXAM; COMMENT: Normal, iron deficiency anemia most likely 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 OTHER SURGICAL HISTORY 2004 PROCEDURE: HISTORICAL [...] ED evaluation 06/29/18, referred to Dr. Ewing, [facility] wound care Managed with IV abx via PICC line through ID, eval with Dr. Harris for skin graft 08/2018 Anxiety 09/17/2018 DX:Anxiety; COMM ENT: Panic attacks Diabetic neuropathy ([facility], [facility] V28) 09/26/2018 DX:Diabetic neuropathy ([facility]) Umbilical hernia 09/26/2018 DX:Umbilical he rnia Type 2 diabetes mellitus wit h neurological manifestations ([facility], [facility] V28) 09/26/2018 DX:Type 2 diabetes mellitus with neurological manifestations ([facility]); COMMENT: Endo consult with Dr. Garces Type 2 diabetes mellitus wit h renal manifestations ([facility], [facility] V28) 01/15/2019 DX:Type 2 diabetes mellitus with renal manifestations ([facility]) Chronic gastric ulcer DX:Chronic gastric ulcer Depression DX:Depression ALIYAH on CPAP 01/15/2019 DX:ALIYAH on CPAP GERD (gastroesophageal reflux disease) 01/15/2019 DX:GERD (gastroesophageal reflux disease) Type 2 diabetes mellitus wit h vascular disease ([facility], [facility] V28) 10/14/2012 DX:Type 2 diabetes mellitus with vascular disease ([facility]) IBS (irritable bowel syndrome) 01/15/2019 D X:IBS (irritable bowel syndrome) Carpal tunnel syndrome of left wrist 01/15/2019 DX:Carpal tunnel syndrome of left wrist Amos's esophagus 03/23/2022 DX:Amos's esophagus [place] grade A esophagitis 03/23/2022 DX:[place] grade A esophagitis Diabetes mellitus ([facility] V 24, [facility] V28) DX:Diabetes mellitus ([facility]) Hypertension DX:Hypertension Hypercholesterolemia DX:Hypercho lesterolemia Anxiety DX:Anxiety GERD (gastroesophageal reflux disease) DX:GERD (gastroesophageal reflux disease) Family History Medical History Relation Name Comments Other: Graves Disease Brother Heart failure Maternal Grandfather Stroke Other cancer Maternal Grandmother Liver Breast cancer Mother Heart failure Paternal Grandfather [place], Hy pertension Other cancer Paternal Grandmother Kidney [...] Signed Date: 08/05/2024 08:54 ET Workstation ID: [id number] Transcribed By: Self Edit Transcribed Date: 08/05/2024 08:44 ET Narrative 08/05/2024 8:54 AM EST EXAM: SCREENING MAMMOGRAPHY, BILATERAL HISTORY: SCREENING. Mother diagnosed with breast cancer age 56. COMPARISON: 03/09/2023, 12/20/2021, 09/10/2020 TECHNIQUE: Synthesized CC and MLO projections of each breast. Tomosynthesis of each breast in the CC and MLO projections. ADDITIONAL IMAGING: None Computer-aided detection was employed with the [employer] AI 3-D. TISSUE DENSITY: There are scattered [...] None Computer-aided detection was employed with the [employer] AI 3-D. TISSUE DENSITY: There are scattered [...] Signed Date: 08/05/2024 08:54 ET Workstation ID: [id number] Transcribed By: Self Edit Transcribed Date: 08/05/2024 08:44 ET us Self Referral Sppl IMG BI PROCEDURES Final Resul t from Last 3 Months or Most Recently Relevant to Health Maintenance [place] [address] [place] [address] ([facility]) Care Teams Liquor Store Manager Relationship Specialty Start Date End Date Joel Alegria NP [address] [place], [place] PCP - General Family Medicine 08/01/24
--- OUTSIDE RECORDS SUMMARY | 2025-05-14 13:18 | XMS_ITS | Encounter Summary ---
Author Organization [facility] Address [address] [place] [address] Care Team Providers Care Tariff Compiling Clerk Name Role Phone Ranjana Villarreal PA-C Primary Care Provi erika Encounter Details Date Type Department Care Team (Late st Contact Info) Description 05/04/2025 Scanned Document [facility] [address] [place] [address] Nephrology, Scan Social History Tobacco Use Types [...] drinks on one occasion? Never 02/13/2025 Comments No Sex and Gender Information Value Date Recorded Sex Assigned at Female 01/06/2024 3:09 PM EDT Legal Sex Female 4:18 PM EDT Gender Identity Female 01/06/2024 3:09 PM EDT Sexual Orientation Choose not to disclose 2023 3:09 PM EDT documented as of this encounter Plan of Treatment Upcoming Encounters Date Type Department Care Team (Late st Contact Info) Description 05/15/2025 12:30 PM EDT Treatment [facility] [address] [address] Rubi Woo, PT [address] [place] [address] 05/19/2025 1:00 PM EDT Treatment [facility] [address] [address] Rubi Woo, PT [address] [place] [address] 05/22/2025 1:00 PM EDT Treatment [facility] [address] [address] Rubi Woo, PT [address] [place] [address] 05/29/2025 12:30 PM EDT Treatment [facility] [address] [address] Rubi Woo, PT [address] [place] [address] 06/04/2025 8:15 AM EDT [facility] [address] [address] Jared Rousseau MD [address] [address] 06/09/2025 1:45 PM EDT [facility] Visit [facility] [address] [address] Marc Reynolds MD [address] [place] [address] [address] [place] [address] 06/10/2025 8:00 AM EDT Telemedicine Clinical Support [facility] [address] [place] [phone] Meredith Waters NP [address] [facility] [address] [address] Reji Amos, DILIP [address] [place] [address] 06/18/2025 11:20 AM EDT Consult [address] [phone] Ranjana Villarreal PA-C [address] [place] [phone] Maria D Hinojosa, DIGITAL TECHNICIAN [address] [place] [address] 06/23/2025 1:15 PM EDT Telemedicine [facility] [address] [place] [phone] Rebecca Angel, DIGITAL TECHNICIAN [address] [address] 07/14/2025 8:15 AM EDT [facility] Visit [facility] [address] [place] [address] Marc Reynolds MD [address] [address] 07/22/2025 9:30 AM EDT Office Visit [address] [place] [phone] Ranjana Villarreal PA-C [address] [place] [address] documented as of this encounter Goals Goal Patient Goal Type Associated Problems Recent Progress Patient-Stated? Author PT LTG 1 Physical Therapy On track(2024 8:31 AM EDT) No Rubi Woo, PT Note: STG Demonstrate good posture without cueing in 4 weeks. Report pain less than 4/10 in 4 weeks. Be able to sit greater than or equal to 30 minutes to be able to work without pain in 4 weeks. Independent in HEP in 4 weeks. Be able to walk 30 minutes to be able to work without pain in 4 weeks. LTG Be able to lift 8# to be able to lift groceries without pain in 8 weeks. Patient will have centralization of LB radiculopathy, with no pain in LE in 8 weeks. Increase Forward Flexion to 100% without in pain to be able to exercise without pain in 8 weeks. Patient able to perform 10 sit to stands with no cushion in 30 seconds in 8 weeks to avoid future falls. documented as of this encounter Visit Diagnoses Not on filedocumented in this encounter Care Teams Tariff Compiling Clerk Relationship Specialty Start Date End Date Ranjana Villarreal PA-C [address] [place] [address] PCP - General Internal Medicine 11/03/24 documented as of this encounter
== END 2025-05-14 13:08 | disposition home or self-care (01) ==
LOC: HO.HCS 12:28
PROVIDERS: PCP Physician Assistant Medical; Visit Provider Internal Medicine
DX: I25.10 Atherosclerotic heart disease of native coronary artery without angina pectoris (principal); E11.65 Type 2 diabetes mellitus with hyperglycemia; I12.9 Hypertensive chronic kidney disease with stage 1 through stage 4 chronic kidney disease, or unspecified chronic kidney disease; N18.9 Chronic kidney disease, unspecified
CPT/HCPCS: 93010; 99214

== ENCOUNTER → 2025-05-14 12:27 | Outpatient (BNVA) | payer BC, SELFPAY | PROVIDERS: PCP Physician Assistant Medical; Visit Provider Internal Medicine | DX: I25.10 Atherosclerotic heart disease of native coronary artery without angina pectoris (principal) | CPT/HCPCS: 93005 ==

== ENCOUNTER 2025-06-04 15:16 | Outpatient (REF) | payer BC, SELFPAY ==
--- OUTSIDE RECORDS SUMMARY | 2025-06-04 08:15 | XMS_ITS | Encounter Summary ---
Author Organization [facility] Address [address] [place] [address] Care Team Providers Care Stogy Maker Name Role Phone Ranjana Villarreal PA-C Primary Care Provi erika Reason for Referral * Rehabilitation (Routine) - Pending Review Specialty Diagnoses / Procedures Referred By Contact Referred To Contact Physical Medicine and Rehabilitation / Pain Management Diagnoses Back pain, unspecified back location, unspecified back pain laterality, unspecified chronicity Jared Rousseau MD [address] [place] [address] Phone: tel:[phone] fax:[phone] Kemar Storey MD [address] [facility] [address] [place] [address] Phone: tel: fax: Referral ID Status Reason Start Date Expiration Date Visits Requested Visits Authorized [id number] Pending Review Consult 06/04/2025 06/05/2026 1 1 Comments L4-S1 facet ablation trial Reason for Visit * Reason Comments Pain Encounter Details Date Type Department Care Team (Late st Contact Info) Description 06/04/2025 8:15 AM EDT [facility] [address] [place] [address] Jared Rousseau MD [address] [place] [address] Back pain, unspecified back location, unspecified back pain laterality, unspecified chronicity (Primary Dx) Social History Tobacco Use Types [...] as of this encounter Progress Notes * Jared Rousseau MD - 06/04/2025 8:15 AM EDT Images from the original note were not included. [address] [facility] [address] [address] Encounter Date: 06/04/2025 Assessment & Plan The patient continues to have extension related low back pain in the setting of no high-grade neuroforaminal stenosis. She also has degenerative disc disease. I discussed the role of weight loss and physical therapy and core strengthening. She states she has been going to modify clinic. She she maytry pool therapy. In terms of her lumbar spine I think she might benefit from lumbar facet injection s. Will see how this works for her and I will see her back in 3 months for repeat evaluation. All questions were answered today. History of Present Illness: Ewelina Mathis is a 60 y.o. female who presents today for repeat consultation regarding lumbar spine. She is here today to review her MRI. She continues to have axial low back pain. He has completed physical therapy who did not have much relief. She denies any significant radiculopathy. Chief Complaint Patient presents with Lower Back - Pain . Physical Exam Neuromotor Examination: Lower extremities: Muscle Group Right Left Hip Flexor 5/5 5/5 Quadriceps 5/5 5/5 Tibialis Anterior 5/5 5/5 EHL 5/5 5/5 FHL 5/5 5/5 Gastroc/Soleus 5/5 5/5 SILT L2-S1 bilaterally. Patellar and Achilles reflexes symmetric bilaterally. No clonus bilaterally. Imaging Imaging Impression: Independent interpretation of lumbar MRI demonstrating multilevel facet arthropathy with no high-grade neuroforaminal stenosis Visit Orders. 1. Back pain, unspecified back location, unspecified back pain laterality, unspecified chronicity - Amb Referral to Physical Medicine Rehab Review of Systems Review of Systems 10 point review of system performed, pertinent HPI Jared Rousseau MD documented in this encounter Plan of Treatment Upcoming Encounters Date Type Department Care Team (Late st Contact Info) Description 06/09/2025 1:45 PM EDT [facility] Visit [facility] [address] [place] [address] Marc Reynolds MD [address] [place] [address] [address] [place] [address] 06/10/2025 8:00 AM EDT Telemedicine Clinical Support [facility] [place] [facility] 32 [facility] 1st [place] [phone] Meredith Waters NP 31 [facility] [address] [address] [place] [address] 06/18/2025 11:20 AM EDT Consult [facility] Pulmonary [address] [phone] Ranjana Villarreal PA-C 100 [place] [address] Maria D Hinojosa, FASHION DESIGNER 699 [place] [address] 06/23/2025 1:15 PM EDT Telemedicine [facility] [place] [address] [place] [address] 2nd [place] [phone] Rebecca Angel APRN [address] [address] 07/14/2025 8:15 AM EDT [facility] Visit [facility] [place] [phone] Marc Reynolds MD [address] [place] [phone] 07/22/2025 9:30 AM EDT Office Visit [address] [place] [phone] Ranjana Villarreal PA-C [address] [place] [address] 09/03/2025 8:15 AM EST [facility] [address] [address] Jared Rousseau MD [address] [place] [address] Scheduled Referrals Name Type Priority Associated Diagnoses Orde r Schedule Amb Referral to Physical Medicine Rehab Outpatient Referral Routine Back pain, unspecified back location, unspecified back pain laterality, unspecified chronicity Ordered: 06/04/2025 documented as of this encounter Goals Goal Patient Goal Type Associated Problems Recent Progress Patient-Stated? Author PT LTG 1 Physical Therapy Not on track(2024 1:31 PM EDT) No Rubi Woo, PT Note: STG [...] as of this encounter Visit Diagnoses Diagnosis Back pain, unspecified back location, unspecified back pain laterality, unspecified chronicity- Primary documented in this encounter Care Teams Stogy Maker Relationship Specialty Start Date End Date Ranjana Villarreal PA-C [address] [place] [address] PCP - General Internal Medicine 11/03/24 documented as of this encounter
--- OUTSIDE RECORDS SUMMARY | 2025-06-04 16:17 | XMS_ITS | Encounter Summary ---
Author Organization [facility] Address [address] [place] [address] Care Team Providers Care Design Director Name Role Phone Ranjana Villarreal PA-C Primary Care Provi erika Encounter Details Date Type Department Care Team (Late st Contact Info) Description 05/04/2025 Scanned Document [facility] [address] [place] [phone] Nephrology, Scan Social History Tobacco Use Types [...] 1:45 PM EDT [facility] [address] [address] Marc Reynolds MD 499 [facility] 300 [place], [place] [address] 06/10/2025 8:00 AM EDT Telemedicine Clinical Support [facility] [place] [facility] 32 [facility] 1st [place] [phone] Meredith Waters NP [address] [place] [address] [address] Reji Amos, DILIP 32 [place] [address] 06/18/2025 11:20 AM EDT Consult [facility] Pulmonary [place] 100 [place] [phone] Ranjana Villarreal PA-C 100 [place] [address] Maria D Hinojosa, LINK FABRIC MACHINE OPERATOR 699 [place] [address] 06/23/2025 1:15 PM EDT Telemedicine [facility] [address] [place] [phone] Rebecca Angel, MARCOS [address] [address] 07/14/2025 8:15 AM EDT [facility] [address] [place] [address] Marc Reynolds MD [address] [facility] [address] [place], [place] [address] 07/22/2025 9:30 AM EDT Office Visit [address] [place] [address] Ranjana Villarreal PA-C [address] [place] [address] 09/03/2025 8:15 AM EST Office Visit [facility] [address] [phone] Jared Rousseau MD [address] [address] documented as of this encounter Goals Goal [...] without pain in 4 weeks. Independent in [facility] in 4 weeks. Be able to walk [...] on filedocumented in this encounter Care Teams Design Director Relationship Specialty Start Date End Date Ranjana Villarreal PA-C [address] [place] [address] PCP - General Internal Medicine 11/03/24 documented as of this encounter
--- OUTSIDE RECORDS SUMMARY | 2025-06-04 16:18 | XMS_ITS | Clinical Summary ---
Author Organization [facility] Address [address] [place] [address] Phone Care Team Providers Care New Client Banking Services Clerk Name Role Phone Joel Alegria NP Primary [...] iron deficiency anemia most likely r/t a compliance consultant source. OTHER SURGICAL HISTORY 2004 PROCEDURE: [...] ED evaluation 06/29/18, referred to Dr. Ewing, [facility] wound care Managed with IV abx via PICC line through ID, eval with Dr. Harris for skin graft 08/2018 Anxiety 09/17/2018 DX:Anxiety; COMM ENT: Panic attacks Diabetic neuropathy ([facility] V24, [facility] V28) 09/26/2018 DX:Diabetic neuropathy ([facility]) Umbilical hernia 09/26/2018 DX:Umbilical he rnia Type 2 diabetes mellitus wit h neurological manifestations ([facility] V24, [facility] V28) 09/26/2018 DX:Type 2 diabetes mellitus with neurological manifestations ([facility]); COMMENT: Endo consult with Dr. Garces Type 2 diabetes mellitus wit h renal manifestations ([facility] V24, [facility] V28) 01/15/2019 DX:Type 2 diabetes mellitus with renal manifestations ([facility]) Chronic gastric ulcer DX:Chronic gastric ulcer Depression DX:Depression ALIYAH on CPAP 01/15/2019 DX:ALIYAH on CPAP GERD (gastroesophageal reflux disease) 01/15/2019 DX:GERD (gastroesophageal reflux disease) Type 2 diabetes mellitus wit h vascular disease ([facility] V24, [facility] V28) 10/14/2012 DX:Type 2 diabetes mellitus with vascular disease ([facility]) IBS (irritable bowel syndrome) 01/15/2019 D X:IBS (irritable bowel syndrome) Carpal tunnel syndrome of left wrist 01/15/2019 DX:Carpal tunnel syndrome of left wrist Amos's esophagus 03/23/2022 DX:Amos's esophagus Pinal grade A esophagitis 03/23/2022 DX:Pinal grade A esophagitis Diabetes mellitus ([facility] V 24, [facility] V28) DX:Diabetes mellitus ([facility]) Hypertension DX:Hypertension Hypercholesterolemia DX:Hypercho lesterolemia Anxiety DX:Anxiety [...] Blood Sugar Control Test (HGBA1C) 01/09/2024 07/10/2023 Depression Screening 10/01/2024 DTaP,Tdap,and Td Vaccines (2 - Td or Tdap) 10/22/2024 10/22/2014 Diabetes: Annual GFR (Glomerular Filtration Rate) 02/03/2025 02/04/2024, 01/07/2024, 01/06/2024, Additional history exists Hypertension/CHF/CAD Annual BMP Blood Test 02/03/2025 02/04/2024, 01/07/2024, 01/06/2024, Additional history exists COVID-19 Vaccine ( season) 2025 12/29/2020, 12/01/2020 Influenza Vaccine (#1) 2025 , 07/15/2020, 07/18/2018, Additional history exists Breast Cancer [...] Signed Date: 08/05/2024 08:54 ET Workstation ID: [id number] Transcribed By: Self Edit Transcribed Date: 08/05/2024 08:44 ET Narrative 08/05/2024 8:54 AM EST EXAM: SCREENING MAMMOGRAPHY, BILATERAL HISTORY: SCREENING. Mother diagnosed with breast cancer age 56. COMPARISON: 03/09/2023, 12/20/2021, 09/10/2020 TECHNIQUE: Synthesized CC and MLO projections of each breast. Tomosynthesis of each breast in the CC and MLO projections. ADDITIONAL IMAGING: None Computer-aided detection was employed with the [employer] AI 3-D. TISSUE DENSITY: There are scattered [...] None Computer-aided detection was employed with the [employer] AI 3-D. TISSUE DENSITY: There are scattered [...] Signed Date: 08/05/2024 08:54 ET Workstation ID: [id number] Transcribed By: Self Edit Transcribed Date: 08/05/2024 08:44 ET us Self Referral Sppl IMG BI PROCEDURES Final Resul t from Last 3 Months or Most Recently Relevant to Health Maintenance [place] [address] [place] [address] ([facility]) Care Teams New Client Banking Services Clerk Relationship Specialty Start Date End Date Joel Alegria NP [address] [place], [place] PCP - General Family Medicine 08/01/24
--- OUTSIDE RECORDS SUMMARY | 2025-06-04 16:18 | XMS_ITS | Encounter Summary ---
Author Organization [facility] Address [address] [place] [address] Care Team Providers Care Switching Clerk Name Role Phone Ranjana Villarreal PA-C Primary Care Provi erika Encounter Details Date Type Department Care Team ([facility] st Contact Info) Description 05/07/2025 Scanned Document [facility] [address] [phone] Jared Rousseau MD [address] [place] [address] Social History Tobacco Use Types Packs/Day Years [...] PM EDT Office Visit [facility] [address] [place] [address] Marc Reynolds MD 499 [facility] 300 [place] [address] 06/10/2025 8:00 AM EDT Telemedicine Clinical Support [facility] [place] [facility] [address] [place] [phone] Meredith Waters NP [address] [facility] [address] [address] Reji Amos, DILIP 32 [place] [address] 06/18/2025 11:20 AM EDT Consult [facility] Pulmonary [place] 100 [place] [phone] Ranjana Villarreal PA-C 100 [place] [address] Maria D Hinojosa, CHIEF PILOT 6[address] [place] [address] 06/23/2025 1:15 PM EDT Telemedicine [facility] [address] [place] [phone] Rebecca Angel, MARCOS 31 [facility] [address], [place] [address] 07/14/2025 8:15 AM EDT [facility] [address] [address] Marc Reynolds MD 499 [facility] [address] [place] [address] 07/22/2025 9:30 AM EDT Office Visit [facility] 100 [facility] [address] [place] [address] Ranjana Villarreal PA-C 100 [place] [address] 09/03/2025 8:15 AM EST [facility] [address] [address] Jared Rousseau MD [address] [facility] 100 [place] [address] documented as of this encounter Goals Goal [...] on filedocumented in this encounter Care Teams Switching Clerk Relationship Specialty Start Date End Date Ranjana Villarreal PA-C [address] [place] [address] PCP - General Internal Medicine 11/03/24 documented as of this encounter
--- OUTSIDE RECORDS SUMMARY | 2025-06-04 16:18 | XMS_ITS | Encounter Summary ---
Author Organization [facility] Address [address] [place] [address] Care Team Providers Care Film Casting Operator Name Role Phone Ranjana Villarreal PA-C Primary Care Provi erika Encounter Details Date Type Department Care Team (Late st Contact Info) Description 12/09/2024 Scanned Document [facility] PULMONOLGY SCAN Pulmonary, Scan Social History [...] 1:45 PM EDT [facility] [address] [address] Marc Reynolds MD [address] [address] 06/10/2025 8:00 AM EDT Telemedicine Clinical Support [facility] [place] [facility] [address] [phone] Meredith Waters, MARY 31 [facility] [address], [place] [address] Reji Amos, DILIP 32 [place] [address] 06/18/2025 11:20 AM EDT Consult [facility] Pulmonary [address] [phone] Ranjana Villarreal PA-C [address] [place] [address] Maria D Hinojosa, CRUISE GUIDE 699 [place] [address] 06/23/2025 1:15 PM EDT Telemedicine [facility] [place] [address] [place] [phone] Rebecca Angel, CRUISE GUIDE [address] [address] 07/14/2025 8:15 AM EDT [facility] [address] [address] Marc Reynolds MD 499 [facility] 300 [place] [address] 07/22/2025 9:30 AM EDT Office Visit [facility] 100 [facility] [address] [place] [address] Ranjana Villarreal PA-C 100 [place] [address] 09/03/2025 8:15 AM EST [facility] [address] [place] [address] Jared Rousseau MD [address] [address] documented as of this encounter Visit Diagnoses Not on filedocumented in this encounter Care Teams Film Casting Operator Relationship Specialty Start Date End Date Ranjana Villarreal PA-C 100 [place] [address] PCP - General Internal Medicine 11/03/24 documented as of this encounter
--- OUTSIDE RECORDS SUMMARY | 2025-06-04 16:18 | XMS_ITS | Encounter Summary ---
Author Organization [facility] Address 100 [place] [address] Care Team Providers Care Research Engineer Name Role Phone Ranjana Villarreal PA-C Primary Care Provi erika Encounter Details Date Type Department Care Team ([facility] st Contact Info) Description 05/06/2025 Telephone Formerly [facility] Vascular & Endovascular Surgery [place] [address] [phone] Basia Brandt N, SUPERVISOR POULTRY PROCESSING 85 [facility] [place] [address] [place] [phone] Social History Tobacco Use Types Packs/Day Years [...] PM EDT [facility] Visit [facility] [address] [place] [address] Marc Reynolds MD 499 [facility] 300 [place], [place] [address] 06/10/2025 8:00 AM EDT Telemedicine Clinical Support [facility] [place] [facility] [address] [place] [phone] Meredith Waters NP [address] [place] [address] 204[place] [address] 32 [place] [address] 06/18/2025 11:20 AM EDT Consult [facility] 100 [place] [phone] Ranjana Villarreal PA-C 100 [place] [address] Maria D Hinojosa, MARCOS 699 [place] [address] 06/23/2025 1:15 PM EDT Telemedicine [facility] Bone and Joint [address] 2nd [place] [phone] Rebecca Angel, MARCOS 31 [facility] [address] [address] 07/14/2025 8:15 AM EDT [facility] [address] [address] Marc Reynolds MD 499 [facility] 300 [place] [address] 07/22/2025 9:30 AM EDT Office Visit [facility] 100 [facility] [address] [place] [address] Ranjana Villarreal PA-C 100 [place] [address] 09/03/2025 8:15 AM EST [facility] [address] [address] Jared Rousseau MD 31 [facility] 100 [place] [address] documented as of this encounter Goals Goal [...] on filedocumented in this encounter Care Teams Research Engineer Relationship Specialty Start Date End Date Ranjana Villarreal PA-C 100 [place] [address] PCP - General Internal Medicine 11/03/24 documented as of this encounter
--- OUTSIDE RECORDS SUMMARY | 2025-06-04 16:18 | XMS_ITS | Clinical Summary ---
Author Organization [facility] Address [address] [place] [address] Care Team Providers Care Prototype Fabricator Name Role Phone Unavailable Primary Care Provider [...] 2016 Shingrix-Zoster Vaccine (1 of 2) 2016 DTap / Tdap / Td (2 - Td or Tdap) 10/22/2024 10/22/2014 COVID-19 Vaccine (3 - season) 2025 12/29/2020, 12/01/2020 Influenza Vaccine (#1) 2025 , 07/18/2018, 08/01/2016, Additional history exists Pneumococcal Vaccine Aged Out No long er eligible based on patient's age to complete this topic RSV Ped < 20 months Aged Out No longe r eligible based on patient's age to complete this topic Ewelina Mathis Personal/Family Self 1965 A [address] [place] [address]
--- OUTSIDE RECORDS SUMMARY | 2025-06-04 16:18 | XMS_ITS | Encounter Summary ---
Author Organization [facility] Address 100 [place] [address] Care Team Providers Care Automotive Quality Engineer Name Role Phone Ranjana Villarreal PA-C Primary Care Provi erika Encounter Details Date Type Department Care Team (Late st Contact Info) Description 04/07/2025 Scanned Document [facility] 1290 [place] [address] Nephrology, Scan Social History Tobacco Use Types [...] 1:45 PM EDT [facility] [address] [address] Marc Reynolds MD 499 [facility] 300 [place], [place] [address] 06/10/2025 8:00 AM EDT Telemedicine Clinical Support [facility] Bone [facility] [place] [facility] 32 [facility] [place] [facility] 1st [place] [phone] Meredith Waters NP [address] [place] [address] [address] Reji Amos, DILIP 32 [place] [address] 06/18/2025 11:20 AM EDT Consult [facility] Pulmonary [place] 100 [place] [phone] Ranjana Villarrela PA-C 100 [place] [address] Maria D Hinojosa, ASSOCIATE VETERINARIAN 699 [place] [address] 06/23/2025 1:15 PM EDT Telemedicine [facility] Bone and Joint [address] [place] [phone] Rebecca Angel, MARCOS [address] [address] 07/14/2025 8:15 AM EDT [facility] [address] [place] [address] Marc Reynolds MD [address] [facility] [address] [place], [place] [address] 07/22/2025 9:30 AM EDT Office Visit [address] 101 [place] [address] Ranjana Villarreal PA-C [address] [place] [address] 09/03/2025 8:15 AM EST Office Visit [facility] of [address] [phone] Jared Rousseau MD [address] [address] documented as of this encounter Goals Goal [...] without pain in 4 weeks. Independent in [facility] in 4 weeks. Be able to walk [...] on filedocumented in this encounter Care Teams Automotive Quality Engineer Relationship Specialty Start Date End Date Ranjana Villarreal PA-C [address] [place] [address] PCP - General Internal Medicine 11/03/24 documented as of this encounter
--- OUTSIDE RECORDS SUMMARY | 2025-06-04 16:18 | XMS_ITS | Encounter Summary ---
Author Organization [facility] Address [address] [place] [address] Care Team Providers Care Front End Developer Javascript Html Css Name Role Phone Ranjana Villarreal PA-C Primary Care Provi erika Encounter Details Date Type Department Care Team (Late st Contact Info) Description 12/25/2024 Scanned Document [facility] NEPHROLOGY SCAN Nephrology, Scan Social History Tobacco [...] 1:45 PM EDT [facility] [address] [address] Marc Reynolds MD [address] [address] 06/10/2025 8:00 AM EDT Telemedicine Clinical Support [facility] Bone [facility] Joint [place] [facility] [address] [place] [phone] Meredith Waters, AMRY [address] [place] [address] [address] [address] Reji Amos, DILIP 32 [place] [address] 06/18/2025 11:20 AM EDT Consult [facility] Pulmonary [address] [phone] Ranjana Villarreal PA-C [address] [place] [address] Maria D Hinojosa, COKE DRAWER 699 [place] [address] 06/23/2025 1:15 PM EDT Telemedicine [facility] Bone [facility] [place] [address] [place] [phone] Rebecca Angel, MARCOS [address] [address] 07/14/2025 8:15 AM EDT [facility] [address] [address] Marc Reynolds MD 499 [address] [place] [address] 07/22/2025 9:30 AM EDT Office Visit [facility] 100 [facility] [address] [place] [address] Ranjana Villarreal PA-C 100 [place] [address] 09/03/2025 8:15 AM EST [facility] Visit [facility] of [address] [place] [address] Jared Rousseau MD [address] [address] documented as of this encounter Visit Diagnoses Not on filedocumented in this encounter Care Teams Front End Developer Javascript Html Css Relationship Specialty Start Date End Date Ranjana Villarreal PA-C 100 [place] [address] PCP - General Internal Medicine 11/03/24 documented as of this encounter
--- OUTSIDE RECORDS SUMMARY | 2025-06-04 16:18 | XMS_ITS | Encounter Summary ---
Author Organization [facility] Address 100 [place] [address] Care Team Providers Care Machine Icer Name Role Phone Ranjana Villarreal PA-C Primary Care Provi erika Encounter Details Date Type Department Care Team (Late st Contact Info) Description 03/19/2025 Scanned Document [facility] 1290 [place] [address] Pulmonary, Scan Social History Tobacco Use Types [...] 1:45 PM EDT [facility] [address] [address] Marc Reynolds MD 499 [facility] 300 [place], [place] [address] 06/10/2025 8:00 AM EDT Telemedicine Clinical Support [facility] Bone and Joint [place] [facility] 32 [facility] 1st [place] [phone] Meredith Waters NP 31 [facility] [address], [place] [address] Reji Amos, DILIP 32 [place] [address] 06/18/2025 11:20 AM EDT Consult [facility] Pulmonary [place] 100 [place] [phone] Ranjana Villarreal PA-C 100 [place] [address] Maria D Hinojosa, UTILITY PLANT OPERATIVE 699 [place] [address] 06/23/2025 1:15 PM EDT Telemedicine [facility] Bone [facility] [place] 31 [facility] 2nd [place] [phone] Rebecca Angel, MARCOS [address] [address] 07/14/2025 8:15 AM EDT [facility] [address] [address] Marc Reynolds MD [address] [facility] [address] [place] [address] 07/22/2025 9:30 AM EDT Office Visit [facility] 100 [facility] 101 [place] [address] Ranjana Villarreal PA-C 100 [place] [address] 09/03/2025 8:15 AM EST [facility] 7 [facility] 303 [place], [place] 3667[address] Jared Rousseau MD [address] [address] documented as of this encounter Visit Diagnoses Not on filedocumented in this encounter Care Teams Machine Icer Relationship Specialty Start Date End Date Ranjana Villarreal PA-C 100 [place] [address] PCP - General Internal Medicine 11/03/24 documented as of this encounter
--- OUTSIDE RECORDS SUMMARY | 2025-06-04 16:18 | XMS_ITS | Encounter Summary ---
Author Organization [facility] Address 100 [place] [address] Care Team Providers Care Efficiency Miner Name Role Phone Ranjana Villarreal PA-C Primary Care Provi erika Encounter Details Date Type Department Care Team (Late st Contact Info) Description 05/15/2025 Scanned Document [facility] 1290 [place] [address] Cardiology, Scan Social History Tobacco Use Types Packs/Day [...] 1:45 PM EDT [facility] [address] [address] Marc Reynolds MD 499 [facility] 300 [place], [place] [address] 06/10/2025 8:00 AM EDT Telemedicine Clinical Support [facility] Bone and Joint [place] [facility] 32 [facility] 1st [place] [phone] Meredith Waters NP 31 [facility] 204[place] [address] Reji Amos, DILIP 32 [place] [address] 06/18/2025 11:20 AM EDT Consult [facility] Pulmonary [place] 100 [place] [phone] Ranjana Villarreal PA-C 100 [place] [address] Maria D Hinojosa, EXTERIOR WORK HELPER 699 [place] [address] 06/23/2025 1:15 PM EDT Telemedicine [facility] Bone and Joint [place] 31 [facility] 2nd [place] [phone] Rebecca Angel, MARCOS [address] [address] 07/14/2025 8:15 AM EDT [facility] [address] [address] Marc Reynolds MD 499 [facility] [address] [place] [address] 07/22/2025 9:30 AM EDT Office Visit [facility] 100 [facility] 101 [place] [address] Ranjana Villarreal PA-C [address] [place] [address] 09/03/2025 8:15 AM EST [facility] Visit [facility] [address] [address] Jared Rousseau MD 31 [facility] 100 [place] [address] documented as of this encounter Goals Goal [...] on filedocumented in this encounter Care Teams Efficiency Miner Relationship Specialty Start Date End Date Ranjana Villarreal PA-C [address] [place] [address] PCP - General Internal Medicine 11/03/24 documented as of this encounter
--- OUTSIDE RECORDS SUMMARY | 2025-06-04 16:18 | XMS_ITS | Clinical Summary ---
Author Organization [facility] Address [address] [place] [id number] Care Team Providers Care Restaurant Team Member Name Role Phone Britt Henry PA-C Primary Care Provi erika Allergies Active Allergy Reactions Criticality Noted Date Comments Ceftriaxone Rash/Dermatitis Low 06/13/2023 Metformin Diarrhea Low 01/06/2024 Medications insulin glargine (insulin glargine, BASAGLAR KWIKPEN,) 100 [...] (ATROVENT) 0.03 % nasal spray as needed. 4 Active ipratropium-albu terol (DUONEB) 0.5-2.5 mg/3 mL nebulizer solution 3 ML INHALED EVERY 6 HOURS NEEDED FOR WHEEZING 4 Active amLODIPine (NORVASC) 5 MG tabletIndication s:Occipital neuralgia of left side Take 1 tablet (5 mg total) by mouth daily. 30 tablet 4 Active Continuous Glucose Sensor (Dexcom G6 Sensor) [facility] [place] 1 SENSOR EVERY 10 DAYS 4 Active Continuous Glucose Transmitter (Dexcom G6 Transmitter) [facility] 1 DEVICE BY DOES NOT APPLY ROUTE SEE ADMIN INSTRUCTIONS. CHANGE TRANSMITTER EVERY 3 MONTHS. 4 Active primidone (MYSOLINE) 50 MG tablet Take 1 tablet (50 mg total) by mouth nightly. 4 Active estradiol (ESTRACE) 0.01 % vaginal cream APPLY PEA-SIZED AMOUNT TO URETHRA DAILY X 1 MONTH THEN THREE DAYS A WEEK THEREAFTER 5 Active hydroCHLOROthiaz gasper (MICROZIDE) 12.5 MG capsule Take 1 capsule (12.5 mg total) by mouth every morning. 5 Active naltrexone (REVIA) 50 MG tablet Take 1 tablet (50 mg total) by mouth every morning. 5 Active PANTOprazole (PROTONIX) 40 MG EC tabletIndication s:Amos's esophagus without dysplasia Take 1 tablet (40 mg total) by mouth daily. 90 tablet 3 5 Active budesonide-formo terol (SYMBICORT) 160-4.5 MCG/ACT inhaler Inhale 2 puffs twice daily (every 12 hours). 5 Active Multiple Vitamin tablet Take 1 tablet by mouth every morning. Active acetaminophen (TYLENOL) 500 MG tablet Take 1 tablet (500 mg total) by mouth 4 times daily (every 6 hours) as needed for mild pain. Active meloxicam (MOBIC) 7.5 MG tabletIndication s:Back pain, unspecified back location, unspecified back pain laterality, unspecified chronicity Take 1 tablet (7.5 mg total) by mouth daily. 30 tablet 5 Active lisinopril (PRINIVIL,ZeSTRI L) 10 MG tabletIndication s:Primary hypertension Take 1 tablet (10 mg total) by mouth nightly. 90 tablet 1 5 Active SUPPLY DME MISCIndications: Morbid obesity (HCC),Back pain, unspecified back location, unspecified back pain laterality, unspecified chronicity,Pain in left ankle and joints of left foot,Pain in both knees, unspecified chronicity,Ankle instability, unspecified laterality Walker with seat & breaks [facility] [address], [place] [address] 1 each 5 Active methocarbamol (ROBAXIN) 750 MG tabletIndication s:Back pain, unspecified back location, unspecified back pain laterality, unspecified chronicity Take 1 tablet (750 mg total) by mouth 4 (four) times a day as needed for muscle spasms. 40 tablet 5 Active phenazopyridine (PYRIDIUM) 200 MG tabletIndication s:Urinary tract infection with hematuria, site unspecified Take 1 tablet (200 mg total) by mouth 3 (three) times a day in the morning, mid-day and early evening. 6 tablet 5 Active nitrofurantoin monohydrate (MACROBID) 100 MG capsuleIndicatio ns:Urinary tract infection with hematuria, site unspecified Take 1 capsule (100 mg total) by mouth 2 (two) times a day with meals. Dispense generic equivalent of MACROBID 14 capsule 5 025 Active Problems Problem Noted Date Diagnosed [...] Encounters Date Type Department Care Team Description 06/04/2025 8:15 AM EDT [facility] Visit [facility] [address] [place] [address] Jared Rousseau MD Back pain, unspecified back location, unspecified back pain laterality, unspecified chronicity (Primary Dx) 05/29/2025 12:30 PM EDT Treatment [facility] [address] [place] [address], [place] [address] Rubi Woo, PT Acute low back pain with bilateral sciatica, unspecified back pain laterality (Primary Dx) 05/27/2025 12:40 PM EDT Office Visit [facility] [place] [address] [place] [address] David Land MD Kelly, Martin J, EDDIE Urinary tract infection with hematuria, site unspecified (Primary Dx); Urinary tract infection symptoms 05/27/2025 Travel 05/27/2025 Telephone [facility] [address] [place] [address] Britt Henry PA-C Blood Pressure Check 05/22/2025 1:00 PM EDT Treatment [facility] [address] [address] Rubi Woo, PT Acute low back pain with bilateral sciatica, unspecified back pain laterality (Primary Dx) 05/15/2025 12:30 PM EDT Treatment [facility] [place] [id number] Rubi Woo, PT Acute low back pain with bilateral sciatica, unspecified back pain laterality (Primary Dx) 05/15/2025 Scanned Document [facility] [address] [place] [address] Cardiology, Scan 05/13/2025 7:30 AM EDT Treatment [facility] [address] [address] Rubi Woo, PT Acute low back pain with bilateral sciatica, unspecified back pain laterality (Primary Dx) 05/08/2025 2:00 PM EDT Treatment [facility] [address] [place] [address] Rubi Woo, PT Acute low back pain with bilateral sciatica, unspecified back pain laterality (Primary Dx) 05/07/2025 8:00 AM EDT Office Visit [facility] [address] [place] [address] Jared Rousseau MD Back pain, unspecified back location, unspecified back pain laterality, unspecified chronicity (Primary Dx) 05/07/2025 Scanned Document [facility] [address] [place] [phone] Jared Rousseau MD 05/06/2025 8:00 AM EDT Telemedicine Clinical Support [facility] [address] [facility] [facility] 1st [place] [phone] Meredith Waters, Reji Salinas RD Type 2 diabetes mellitus without complication, with long-term current use of insulin (HCC) (Primary Dx); Morbid obesity (HCC) 05/06/2025 Telephone [facility] [place] [address] [facility] [facility] [address] [place] [address] Basia Brandt, [employer] SUPERVISOR 05/06/2025 Travel 05/04/2025 Scanned Document [facility] [address] [place] [address] Nephrology, Scan 05/01/2025 1:00 PM EDT Treatment [facility] [address] [place] [address] Rubi Woo, PT Acute low back pain with bilateral sciatica, unspecified back pain laterality (Primary Dx) 04/24/2025 7:00 AM EDT Treatment [facility] [address] [place] [address], [place] [address] Rubi Woo, PT Acute low back pain with bilateral sciatica, unspecified back pain laterality (Primary Dx) 04/24/2025 Refill [facility] [place] [address] [address] Jared Rousseau MD Back pain, unspecified back location, unspecified back pain laterality, unspecified chronicity 04/22/2025 11:30 AM EDT Treatment [facility] [address] [address] Rubi Woo, PT Acute low back pain with bilateral sciatica, unspecified back pain laterality (Primary Dx) 04/21/2025 3:40 PM EDT Ancillary Procedure [facility] [address] [address] 04/21/2025 3:15 PM EDT Consult [facility] [place] [phone] Marc Reynolds MD Primary osteoarthritis of both knees (Primary Dx) 04/17/2025 11:30 AM EDT Treatment [facility] [address] [address] Rubi Woo, PT Acute low back pain with bilateral sciatica, unspecified back pain laterality (Primary Dx) 04/08/2025 2:30 PM EDT Treatment [facility] [address] [address] Rubi Woo, PT Acute low back pain with bilateral sciatica, unspecified back pain laterality (Primary Dx) 04/08/2025 Orders Only [facility] [address] [phone] Eladio Becker MD Ankle instability, unspecified laterality (Primary Dx); Morbid obesity (HCC); Back pain, unspecified back location, unspecified back pain laterality, unspecified chronicity; Pain in left ankle and joints of left foot; Pain in both knees, unspecified chronicity 04/07/2025 Orders Only [address] [place] [address] Britt Henry PA-C Elevated serum creatinine (Primary Dx) 04/07/2025 Scanned Document [facility] [address] [place] [address] Nephrology, Scan 04/01/2025 7:00 AM EDT Telemedicine Clinical Support [facility] [address] [facility] 1st [place] [address] Meredith Waters, Reji Salinas, RD Type 2 diabetes mellitus without complication, with long-term current use of insulin (HCC) (Primary Dx); Morbid obesity (HCC) 04/01/2025 Orders Only [facility] [address] [place] [address] Britt Henry PA-C 04/01/2025 Scanned Document [address] [phone] Primary Care, Scan 04/01/2025 Travel 03/31/2025 8:30 AM EDT Evaluation [facility] [address] [place] [address] Jared Rousseau MD McEvitt, Meghan K, PT Acute low back pain with bilateral sciatica, unspecified back pain laterality (Primary Dx) 03/19/2025 8:05 AM EDT Ancillary Procedure [facility] [address] [place] [address] Jared Rousseau MD 03/19/2025 8:00 AM EDT Consult [facility] [address] [address] Jared Rousseau MD Back pain, unspecified back location, unspecified back pain laterality, unspecified chronicity (Primary Dx) 03/19/2025 Orders Only [address] [place] [phone] ProviderValarie MD 03/19/2025 Scanned Document [facility] [place] [address] Pulmonary, Scan 03/19/[address] [phone] Britt Henry PA-C Primary hypertension (Primary Dx) 03/17/2025 4:15 PM EDT Telemedicine [facility] [address] [place] [phone] Rebecca Angel APRN Morbid obesity (HCC) (Primary Dx) 03/17/2025 Travel 03/17/2025 Documentation [facility] [address] [place] [phone] Rebecca Angel APRN 03/10/2025 3:00 PM EDT Office Visit [facility] [address] [place] [address] Eladio Becker MD Pain in left ankle and joints of left foot (Primary Dx) 03/06/2025 Orders Only [facility] [address] [place] [phone] Alexandrea Anguiano MA Carotid artery stenosis without cerebral infarction, bilateral (Primary Dx) from Last 3 Months Social [...] Sign Reading Time Taken Comments Blood Pressure 143/80 05/27/2025 12:44 PM EDT Pulse 96 05/27/2025 12:44 PM EDT Temperature 35.8 C (96.4 F) 05/27/2025 12:44 PM EDT Respiratory Rate 18 05/27/2025 12:44 PM EDT Oxygen Saturation 97% 05/27/2025 12:44 PM EDT Inhaled Oxygen Concentration - - Weight 124 kg (273 lb) 05/27/2025 12:44 PM EDT Height 165.1 cm (5' 5 ) 05/27/2025 12:44 PM EDT Body Mass Index 45.43 05/27/2025 12:44 PM EDT Plan of Treatment Upcoming Encounters Date Type Department Care Team (Late st Contact Info) Description 06/09/2025 1:45 PM EDT Office Visit [facility] [address] [place] [address] Marc Reynolds MD [address] [place], [place] [address] 06/10/2025 8:00 AM EDT Telemedicine Clinical Support [facility] [address] [facility] [facility] 1st [place] [phone] Meredith Waters NP [address] [facility] [address] [address] [place], [place] [phone] 06/18/2025 11:20 AM EDT Consult [facility] [place] [address] [place] [phone] Britt Henry PA-C [address] [place] [address] Maria D Hinojosa, [employer] [address] [place] [address] 06/23/2025 1:15 PM EDT Telemedicine [facility] [address] [place] [address] 2nd [place] [phone] Rebecca Angel APRN [address] [facility] [address], [place] [address] 07/14/2025 8:15 AM EDT Office Visit [facility] [address] [address] Marc Reynolds MD [address] [place] [address] [address] [place], [place] [phone] 07/22/2025 9:30 AM EDT Office Visit [address] [place] [phone] Britt Henry PA-C [address] [place] [address] 09/03/2025 8:15 AM EST Office Visit [facility] [address] [address] Jared Rousseau MD [address] [address] Health Maintenance Due Date Last Done Comments [...] 05/01/2025 07/18/2023, , 08/01/2016, Additional history exists Lipid Panel 01/29/2026 01/29/2025 Creatinine with GFR 04/01/2026 04/01/2025, 04/01/2025, 01/29/2025, Additional history exists COVID-19 Vaccine Completed 06/13/2024, 01/2021, 12/29/2020, Additional [...] in 8 weeks to avoid future falls. Medical Devices Implanted Type Area Set Off Blocker Device Identifier Shelf Expiration Date Model / Serial / Lot Nail/Dayron Nail/Dayron Foot Description:Charcot's and pl ate Procedures Procedure Name Priority Date/Time Associated Diagnosis Comments POCT URINALYSIS DIPSTICK, AUTOMATED Routine 05/27/2025 1:06 PM EDT Urinary tract infection symptoms URINE CULTURE Routine 05/27/2025 1:06 PM EDT Urinary tract infection symptoms MRI LUMBAR SPINE W/O CONTRAST Routine 05/26/2025 7:33 AM EDT Back pain, unspecified back location, unspecified back pain laterality, unspecified chronicity XR KNEE 4+ VIEWS-LEFT Routine 04/21/2025 3:56 PM EDT Primary osteoarthritis of both knees [place] ARTHROCENTESIS ASPIR&/INJ MAJOR JT/BURSA W/O US Routine 04/21/2025 3:15 PM EDT Primary osteoarthritis of both knees MO ARTHROCENTESIS ASPIR&/INJ MAJOR JT/BURSA W/O US Routine 04/21/2025 3:15 PM EDT Primary osteoarthritis of both knees BASIC METABOLIC PANEL Routine 04/01/2025 11:46 AM EDT Primary hypertension CREATININE WITH EGFR Routine 04/01/2025 HX PHYSICIAN ORDER Routine 03/19/2025 1: 59 PM EDT XR LUMBAR SPINE COMPLETE 4+ VIEWS Routine 03/19/2025 8:19 AM EDT Back pain, unspecified back location, unspecified back pain laterality, unspecified chronicity LIPID PANEL WITH NONHDL Routine 01/29/2025 1:22 PM EDT Type 2 diabetes mellitus without complication, with long-term current use of insulin (HCC) Primary hypertension Other hyperlipidemia Anemia, unspecified type Bilateral leg edema HEMOGLOBIN A1C WITH ESTIMATED AVERAGE GLUCOSE STAT 01/07/2024 4:32 AM EDT from Last 3 Months or Most Recently Relevant to Health Maintenance Results * (ABNORMAL) POCT Urinalysis Dipstick, Automated (05/27/2025 1:06 PM EDT) Source, UA Clean Catch Color, UA Nelson(A) Yellow & Clear, Yellow Comment:pt took azo Clarity, UA Clear Clear Glucose, UA Negative Negative Bilirubin, UA Large (+++)(A) Negative Ketones, UA Negative Negative Spec Grav, UA >=1.030(A) 1.005, 1.010, 1.015, 1.020, 1.025 Blood, UA Moderate (++)(A) Negative pH, UA 5.0 5.0, 5.5, 6.0, 6.5, 7.0, 7.5, 8.0 Protein, UA 100 (++)(A) Negative Urobilinogen, UA 2.0(A) 0.2, 1.0 Nitrite, UA Positive(A) Negative Leukocyte Esterase, UA Large (+++)(A) Negative Lot Number [id number] [place] Urine 05/27/2025 1:06 PM EDT us Sudarshan Kevin PA-C POINT OF CARE TEST ORDERABLE S Final Result * Urine Culture (05/27/2025 1:06 PM EDT) Culture SEE NOTE oneforty Comment: CULTURE, URINE, ROUTINE Micro Number: [id number] Test Status: Final Specimen Source: Urine Specimen Quality: Adequate Result: No Growth 05/27/2025 1:06 PM EDT 05/28/2025 10:45 PM EDT Sudarshan Kevin PA-C LAB AMB MICRO ORDERABLES Fin al Result Performing Organization Address City/State/[facility] Co de Phone Number [employer] [address] [place] [phone] * MRI Lumbar spine w/o contrast (05/26/2025 7:33 AM EDT) Anatomical Region Laterality Modality L-spine Magnetic Resonan ce 05/26/2025 7:00 AM EDT 05/26/2025 7:00 AM EDT Impressions 05/28/2025 8:49 AM EDT 1. Mild levocurvature of the lumbar spine centered at the L4 vertebral body. No acute osseous abnormality. 2. T12-L1 partially visualized disc bulge with a posterior central disc protrusion which extends cranially and measures 1.7 cm in craniocaudal dimension. This partially effaces the ventral thecal sac without significant mass effect in the adjacent cord. 3. L1-L2 left paracentral disc protrusion with cranial extension measuring 1.4 cm associated with a shallow broad-based disc bulge and bilateral facet arthropathy. No significant central canal or neural foraminal stenosis. 4. L2-L3 broad-based disc bulge with bilateral facet arthropathy which encroaches upon the traversing bilateral L3 nerve roots within the lateral recesses and causes mgyh-ue-bftveuac bilateral neural foraminal stenosis. 5. L3-L4 broad-based disc bulge with bilateral facet arthropathy and thickening of the ligamentum flavum which encroaches upon the traversing bilateral L4 nerve roots within the lateral recesses and causes mave-qk-lobpuwlv right as well as moderate left neural foraminal stenosis. 6. L4-L5 shallow broad-based disc bulge with bilateral facet arthropathy causing mild left neural foraminal stenosis. Electronically signed by: Stephen Muhammad MD 05/28/2025 08:49 AM EDT RP Thank you for referring your patient to us, Stephen Muhammad MD [phone] (Electronically Signed - 05/28/2025 08:49) Copy: [facility] [address] [facility] [address] [place] [address] PATIENT , Narrative 05/28/2025 8:49 AM EDT EXAMINATION: MR LUMBAR SPINE WITHOUT CONTRAST CLINICAL INFORMATION: Severe lower back pain. Bilateral leg pain, weakness, numbness with left toe weakness or numbness. Failed conservative management. Worsening lower back pain. COMPARISON: No relevant prior studies are available for comparison. TECHNIQUE: MRI of the lumbar spine was obtained using routine sequences without contrast. FINDINGS: Mild levocurvature of the lumbar spine centered at the L4 vertebral body. The lumbar lordosis is maintained. No acute fracture or subluxation. No loss of vertebral body height. Diffuse disc desiccation with multilevel loss of intervertebral disc height, most prominent at L2-L3 and L3-L4. Associated degenerative endplate changes at L2-L3 and L3-L4. No concerning lytic or blastic osseous lesion. No marrow edema or evidence of acute osseous injury. The visualized portion of the spinal cord has normal contours and signal characteristics. The conus terminates at the inferior endplate of L1. T12-L1: Partially visualized disc bulge with a posterior central disc protrusion which extends cranially and measures 1.7 cm in craniocaudal dimension. This partially effaces the ventral thecal sac without significant mass effect on the adjacent cord. Bilateral facet arthropathy without significant neural foraminal stenosis. L1-L2: Left paracentral disc protrusion with cranial extension measuring 1.4 cm associated with a shallow broad-based disc bulge and bilateral facet arthropathy. No significant central canal or neural foraminal stenosis. L2-L3: Shallow broad-based disc bulge with bilateral facet arthropathy which encroaches on the traversing bilateral L3 nerve roots within the lateral recesses and causes bdio-xd-hqtnmtrh bilateral neural foraminal stenosis. L3-L4: Broad-based disc bulge with bilateral facet arthropathy and mild thickening of the ligamentum flavum which encroaches upon the traversing bilateral L4 nerve roots within the lateral recesses and causes nagf-xa-csyfcakg right as well as moderate left neural foraminal stenosis. L4-L5: Shallow broad-based disc bulge with bilateral facet arthropathy causing mild left neural foraminal stenosis. L5-S1: Minimal disc bulge with bilateral facet arthropathy. No significant central canal or neural foraminal stenosis. The visualized soft tissues appear unremarkable. No soft tissue mass or fluid collection. Procedure Note Stephen Muhammad MD - 05/28/2025 EXAMINATION: MR LUMBAR SPINE WITHOUT CONTRAST CLINICAL INFORMATION: Severe lower back pain. Bilateral leg pain, weakness, numbness with lefttoe weakness or numbness. Failed conservative management. Worsening lowerback pain. COMPARISON: No relevant prior studies are available for comparison. TECHNIQUE: MRI of the lumbar spine was obtained using routine sequences withoutcontrast. FINDINGS: Mild levocurvature of the lumbar spine centered at the L4 vertebral body.The lumbar lordosis is maintained. No acute fracture or subluxation. Noloss of vertebral body height. Diffuse disc desiccation with multilevelloss of intervertebral disc height, most prominent at L2-L3 and L3-L4. Associated degenerative endplatechanges at L2-L3 and L3-L4. No concerning lytic or blastic osseous lesion.No marrow edema or evidence of acute osseous injury. The visualized portion of the spinal cord has normal contours and signalcharacteristics. The conus terminates at the inferior endplate of L1. T12-L1: Partially visualized disc bulge with a posterior central discprotrusion which extends cranially and measures 1.7 cm in craniocaudaldimension. This partially effaces the ventral thecal sac withoutsignificant mass effect on the adjacent cord. Bilateral facet arthropathy without significant neural foraminalstenosis. L1-L2: Left paracentral disc protrusion with cranial extension measuring1.4 cm associated with a shallow broad-based disc bulge and bilateralfacet arthropathy. No significant central canal or neural foraminalstenosis. L2-L3: Shallow broad-based disc bulge with bilateral facet arthropathywhich encroaches on the traversing bilateral L3 nerve roots within thelateral recesses and causes phmn-tb-oeyhsvel bilateral neural foraminalstenosis. L3-L4: Broad-based disc bulge with bilateral facet arthropathy and mildthickening of the ligamentum flavum which encroaches upon the traversingbilateral L4 nerve roots within the lateral recesses and zhnazuwbot-lx-eeyjdiji right as well as moderate left neural foraminal stenosis. L4-L5: Shallow broad-based disc bulge with bilateral facet arthropathycausing mild left neural foraminal stenosis. L5-S1: Minimal disc bulge with bilateral facet arthropathy. No significantcentral canal or neural foraminal stenosis. The visualized soft tissues appear unremarkable. No soft tissue mass orfluid collection. IMPRESSION: 1. Mild levocurvature of the lumbar spine centered at the L4 vertebralbody. No acute osseous abnormality. 2. T12-L1 partially visualized disc bulge with a posterior central discprotrusion which extends cranially and measures 1.7 cm in craniocaudaldimension. This partially effaces the ventral thecal sac withoutsignificant mass effect in the adjacent cord. 3. L1-L2 left paracentral disc protrusion with cranial extension measuring1.4 cm associated with a shallow broad-based disc bulge and bilateralfacet arthropathy. No significant central canal or neural foraminalstenosis. 4. L2-L3 broad-based disc bulge with bilateral facet arthropathy whichencroaches upon the traversing bilateral L3 nerve roots within the lateralrecesses and causes ysqy-es-fttmqcvw bilateral neural foraminalstenosis. 5. L3-L4 broad-based disc bulge with bilateral facet arthropathy andthickening of the ligamentum flavum which encroaches upon the traversingbilateral L4 nerve roots within the lateral recesses and liwsfdxnyh-yo-qknxbpkz right as well as moderate left neural foraminal stenosis. 6. L4-L5 shallow broad-based disc bulge with bilateral facet arthropathycausing mild left neural foraminal stenosis. Electronically signed by: Stephen Muhammad MD 05/28/2025 08:49 AM EDT RPWorkstation: [id number] Thank you for referring your patient to us, Stephen Muhammad MD [phone] (Electronically Signed - 05/28/2025 08:49) Copy: [facility] [address] [facility] [[email or web address] [address] [place] [address] PATIENT , Jared Rousseau MD IMG MRI ORDERABLES Final Result * XR Knee 4+ views-Left (04/21/2025 3:56 PM EDT) Narrative [facility] - 04/21/2025 3:56 PM EDT This exam was performed in office at [facility] and images reviewed by orthopedic provider. Any findings are documented within ambulatory encounter note on date of service. us Marc Reynolds MD IMG DIAGNOSTIC IMAGING O RDERABLES Final Result OAH * MO ARTHROCENTESIS ASPIR&/INJ MAJOR JT/BURSA W/O US (04/21/2025 3:15 PM EDT) Narrative Marc Reynolds MD - 04/21/2025 3:15 PM EDT Marc Reynolds MD 04/26/2025 4:54 PM Lg Joint Arthro: R knee on 04/21/2025 3:15 PM Indications: pain Details: 22 G needle, anterolateral approach Medications: 12 mg betamethasone acetate-betamethasone sodium phosphate 6 (3-3) MG/ML Outcome: tolerated well, no immediate complications The steroid was given with 4 mL of 1% lidocaine. We discussed that diabetic patients may experience elevation in blood sugars with steroid injection and that the patient should monitor their blood sugars accordingly. Risks of infection, bleeding, injury, failure of the injection to work were reviewed and understood. They understand the injection may take a few days to work and will last for a variable amount of time, typically between 3-6 months for most patients. It will not relieve all pain but can improve symptoms. Procedure, treatment alternatives, risks and benefits explained, specific risks discussed. Consent was given by the patient. Patient was prepped and draped in the usual sterile fashion. Result [facility] Marc Reynolds MD PROCEDURE/MINOR SURGICAL ORDERABLES Final Result * MO ARTHROCENTESIS ASPIR&/INJ MAJOR JT/BURSA W/O US (04/21/2025 3:15 PM EDT) Narrative Marc Reynolds MD - 04/21/2025 3:15 PM EDT Marc Reynolds MD 04/26/2025 4:54 PM Lg Joint Arthro: L knee on 04/21/2025 3:15 PM Indications: pain Details: 22 G needle, anterolateral approach Medications: 12 mg betamethasone acetate-betamethasone sodium phosphate 6 (3-3) MG/ML Outcome: tolerated well, no immediate complications The steroid was given with 4 mL of 1% lidocaine. We discussed that diabetic patients may experience elevation in blood sugars with steroid injection and that the patient should monitor their blood sugars accordingly. Risks of infection, bleeding, injury, failure of the injection to work were reviewed and understood. They understand the injection may take a few days to work and will last for a variable amount of time, typically between 3-6 months for most patients. It will not relieve all pain but can improve symptoms. Procedure, treatment alternatives, risks and benefits explained, specific risks discussed. Consent was given by the patient. Patient was prepped and draped in the usual sterile fashion. us Marc Reynolds MD PROCEDURE/MINOR SURGICAL ORDERABLES Final Result * (ABNORMAL) Basic metabolic panel (04/01/2025 11:46 AM EDT) Glucose 399(H) 65 - 99 mg/dL [facility] Comment: Verified by repeat analysis. Fasting reference interval For someone without known diabetes, a glucose value >125 mg/dL indicates that they may have diabetes and this should be confirmed with a follow-up test. Blood Urea Nitrogen (BUN) 39(H) 7 - 25 mg/dL [facility] Creatinine 2.59(H) 0.50 - 1.03 mg/dL [facility] Creatinine w/ eGFR 21(L) > OR = 60 mL/min/1.7 3m2 [facility] BUN/Creatinine Ratio 15 6 - 22 (calc) [facility] Sodium 128(L) 135 - 146 mmol/L [facility] Potassium 5.1 3.5 - 5.3 mmol/L [facility] Chloride 90(L) 98 - 110 mmol/L [facility] CO2 29 20 - 32 mmol/L [facility] Calcium 9.6 8.6 - 10.4 mg/dL [facility] Blood Blood specimen / Unknown 04/01/2025 11:46 AM EDT 04/01/2025 11:46 AM EDT us Britt Henry PA-C LAB BLOOD ORDERABLE S Final Result [facility] [address] [place] [phone] * Creatinine with eGFR (04/01/2025) Creatinine 2.59 mg/dL eGFR 21.0 Comment:lab, scan Blood Blood specimen / Unknown 04/01/2025 us Scan Lab LAB BLOOD ORDERABLES Final Resul t * Physician Order (03/19/2025 1:59 PM EDT) us External Provider MD NIÑO AMB PROCEDURES Final Res ult * XR Lumbar spine complete 4+ views (03/19/2025 8:19 AM EDT) Narrative [facility] - 03/19/2025 8:19 AM EDT This exam was performed in office at [facility] and images reviewed by orthopedic provider. Any findings are documented within ambulatory encounter note on date of service. us Jared Rousseau MD IMG DIAGNOSTIC IMAGING ORDERABLE S Final Result Performing Organization Address City/[facility]/ZIP Co de Phone Number OA * (ABNORMAL) Lipid panel with nonHDL (01/29/2025 1:22 PM EDT) Cholesterol, Total 124 <200 mg/dL [facility] Cholesterol, HDL 47(L) > OR = 50 mg/dL [facility] Triglycerides 153(H) <150 mg/dL [facility] LDL Cholesterol 53 mg/dL (calc) [facility] Comment: Reference range: <100 Desirable range <100 mg/dL for primary prevention; <70 mg/dL for patients with CHD or diabetic patients with > or = 2 CHD risk factors. LDL-C is now calculated using the Sudarshan-Steinberg calculation, which is a validated novel method providing better accuracy than the Friedewald equation in the estimation of LDL-C. Sudarshan SS et al. BRITTNEE. 2013;310(19): 7254-6513 (http://education.Wami/faq/VPX043) Cholesterol/HDL Ratio 2.6 <5.0 (calc) [facility] Non HDL Chol. (LDL+VLDL) 77 <130 mg/dL (calc) [facility] Comment: For patients with diabetes plus 1 major ASCVD risk factor, treating to a non-HDL-C goal of <100 mg/dL (LDL-C of <70 mg/dL) is considered a therapeutic option. Blood Blood specimen / Unknown 01/29/2025 1:22 PM EDT 01/29/2025 1:25 PM EDT Narrative [facility] - 01/30/2025 10:28 AM EDT FASTING:YES FASTING: YES us Britt Henry PA-C LAB BLOOD ORDERABLE S Final Result [facility] [address] [place] [phone] * (ABNORMAL) Hemoglobin A1c with Estimated Average Glucose (01/07/2024 4:32 AM EDT) Hemoglobin A1C 7.3(H) <5.7 % 01/07/2024 5:20 AM EDT [facility] Comment: A1c% Interpretation 5.7 - 6.0 Increase risk of diabetes 6.1 - 6.4 Higher risk of diabetes > or = 6.5 Consistent with diabetes Diabetes Care, 33(Supp 1):S1-S61, 2010 Estimated Average Glucose 163 mg/dL 01/07/2024 5:20 AM EDT [facility] Blood specimen (specimen) Blood specimen / Unknown 01/07/2024 4:32 AM EDT 01/07/2024 4:37 AM EDT Nas Garcia MD LAB BLOOD ORDERABLES Final Resul t Performing Organization Address City/[facility] Co de Phone Number [address] [address], [address] [address] from Last 3 Months or Most Recently Relevant to Health Maintenance Insurance [facility] BLUE CROSS OUT OF [facility] BLUE CROSS OUT OF [facility] BLUE CROSS OUT OF [facility] Advance Directives * Full Code (Latest Code Status on File) Date Activated Date Inactivated Comments 01/06/2024 5:40 PM 02/27/2025 8:16 AM Question Answer Comments Decision Thoroughly Discussed with: Patient * Full Code Date Activated Date Inactivated Comments 08/30/2023 12:10 PM 01/06/2024 2:18 PM Full Code Care Teams Restaurant Team Member Relationship Specialty Start Date End Date Britt Henry PA-C [address] [place] [address] PCP - General Internal Medicine 11/03/24
--- OUTSIDE RECORDS SUMMARY | 2025-06-04 16:18 | XMS_ITS | Encounter Summary ---
Author Organization [facility] Address [address] [place] [address] Care Team Providers Care Felt Hooker Name Role Phone Ranjana Villarreal PA-C Primary Care Provi erika Encounter Details Date Type Department Care Team (Late st Contact Info) Description 04/01/2025 Scanned Document [address] [place] [address] Primary Care, Scan Social History [...] 1:45 PM EDT [facility] [address] [place] [address] Marc Reynolds MD 499 [facility] 300 [place], [place] [address] 06/10/2025 8:00 AM EDT Telemedicine Clinical Support [facility] [address] [place] [phone] Meredith Waters NP [address] [place] [address] [address] [place] [address] 06/18/2025 11:20 AM EDT Consult [facility] Medical [facility] 100 [place] [phone] Ranjana Villarreal PA-C [address] [place] [address] Maria D Hinojosa, QUALITY CONTROL PROJECTIONIST [address] [place] [address] 06/23/2025 1:15 PM EDT Telemedicine [facility] [address] [place] [phone] Rebecca Angel APRN [address] [address] 07/14/2025 8:15 AM EDT [facility] [address] [place] [address] Marc Reynolds MD [address] [facility] [address] [place], [place] [address] 07/22/2025 9:30 AM EDT Office Visit [facility] 101 [place] [address] Ranjana Villarreal PA-C 100 [place] [address] 09/03/2025 8:15 AM EST [facility] [address] [address] Jared Rousseau MD [address] [address] documented as of this encounter Goals Goal [...] on filedocumented in this encounter Care Teams Felt Hooker Relationship Specialty Start Date End Date Ranjana Villarreal PA-C [address] [place] [address] PCP - General Internal Medicine 11/03/24 documented as of this encounter
--- OUTSIDE RECORDS SUMMARY | 2025-06-04 16:18 | XMS_ITS | Encounter Summary ---
Author Organization [facility] Address [address] [place] [address] Care Team Providers Care Reticle Printer Name Role Phone Ranjana Villarreal PA-C Primary Care Provi erika Encounter Details Date Type Department Care Team (Late st Contact Info) Description 11/20/2024 Scanned Document [address] [place] [address] Primary Care, Scan Social History [...] 1:45 PM EDT [facility] [address] [address] Marc Reynolds MD 499 [facility] 300 [place], [place] [address] 06/10/2025 8:00 AM EDT Telemedicine Clinical Support [facility] [place] [facility] 32 [facility] 1st [place] [phone] Meredith Waters NP 31 [facility] [address], [place] [address] Reji Amos, DILIP 32 [place] [address] 06/18/2025 11:20 AM EDT Consult [facility] [place] 100 [place] [phone] Ranjana Villarreal PA-C 100 [place] [address] Maria D Hinojosa, GASTROENTEROLOGY PROFESSOR 699 [place] [address] 06/23/2025 1:15 PM EDT Telemedicine [facility] [place] [address] [facility] [address] [place] [phone] Rebecca Angel, MARCOS 31 [facility] [address], [place] [address] 07/14/2025 8:15 AM EDT [facility] [address] [address] Marc Reynolds MD 499 [facility] 300 [place] [address] 07/22/2025 9:30 AM EDT Office Visit [facility] 100 [facility] [address] [place] [address] Ranjana Villarreal PA-C 100 [place] [address] 09/03/2025 8:15 AM EST [facility] [address] [place] [address] Jared Rousseau MD [address] [address] documented as of this encounter Visit Diagnoses Not on filedocumented in this encounter Care Teams Reticle Printer Relationship Specialty Start Date End Date Ranjana Villarreal PA-C 100 [place] [address] PCP - General Internal Medicine 11/03/24 documented as of this encounter
[2025-06-04 16:37] LABS: Appearance Urine Clear; Glucose Urine UA Negative (Negative); PH 7.0 (5.0-9.0); Specific Gravity - Urine 1.010 (1.005-1.025); UMIC TRIGGER UA YES
[2025-06-04 16:42] LABS: Alanine Aminotransferase 38 U/L (0-31); Albumin Level 3.9 g/dL (3.5-5.0); Alkaline Phosphatase 156 U/L (39-117); Anion Gap 10 (12-20); Aspartate Amino Transferase 28 U/L (5-31); Blood Urea Nitrogen 32 mg/dL (9-16); Calcium 9.6 mg/dL (8.4-10.2); Carbon Dioxide 29 mmol/L (22-29); Chloride 102 mmol/L (96-108); Cholesterol 116 mg/dL (<200); Estimated Glomerular Filt Rate 32; HDL Cholesterol 42 mg/dL (>40); Potassium 4.7 mmol/L (3.3-5.1); Sodium 136 mmol/L (135-145); Total Protein 7.2 g/dL (6.5-8.0); Triglycerides 165 mg/dL (<150)
== END 2025-06-04 15:17 | disposition home or self-care (01) ==
LOC: HO.LAB 15:16
PROVIDERS: Absent Provider Internal Medicine; PCP Physician Assistant Medical; Visit Provider Internal Medicine Hypertension Specialist
DX: I25.10 Atherosclerotic heart disease of native coronary artery without angina pectoris (principal); E87.5 Hyperkalemia; N18.9 Chronic kidney disease, unspecified; R82.71 Bacteriuria; E78.5 Hyperlipidemia, unspecified
CPT/HCPCS: 36415; 80048; 80061; 80076; 81001; 87086

== ENCOUNTER 2025-06-04 15:52 | Outpatient (AMB) | payer BC, SELFPAY ==
--- NOTE | 2025-06-04 15:54 | MHC.OFFVIS ---
Vital Signs 06/04/25 15:54 Height 5 ft 5 in Intake Visit Reasons: Follow up Allergies cephalexin Allergy (Intermediate, Verified 06/04/25 16:03) Rash metformin Adverse Reaction (Verified 06/04/25 16:03) diarrhea and vomiting Medication List - Last Reconciled 06/04/25 by Loulou Ty CNP acetaminophen ER 650 mg PO Q12H PRN albuterol sulfate 90 mcg/actuation 2 puffs PO Q4-6H PRN amlodipine 5 mg PO DAILY ascorbic acid (vitamin C) 1 g PO DAILY 90 days aspirin 81 mg PO DAILY atorvastatin 80 mg PO DAILY blood-glucose sensor (Dexcom G6 Sensor device) As directed blood-glucose transmitter (Dexcom G6 Transmitter device) As directed budesonide-formoterol 160-4.5 mcg/actuation (Symbicort) 2 puffs inhalation Q12H bupropion HCl XL 300 mg PO DAILY estradiol 0.01%(0.1mg/gram) 2 grams vaginal DAILY 90 days evolocumab (Repatha SureClick) 140 mg subcut Q2W 90 days fluticasone propionate 50 mcg/actuation (Flonase Allergy Relief) 1 spray intranasal DAILY gabapentin 600 mg (2 x 300 mg) PO TID 90 days hydrochlorothiazide 25 mg PO DAILY hydroxyzine HCl 10 mg PO DAILY PRN insulin glargine (Basaglar KwikPen U-100 Insulin) 50 units subcut QPM insulin lispro (Humalog KwikPen (U-100) Insulin) 10 sliding scale doses subcut USEASDIRECTD ipratropium bromide 2 sprays intranasal BID ipratropium-albuterol 0.5 mg-3 mg(2.5 mg base)/3 mL 3 mL inhalation Q6H PRN methenamine hippurate 1 g PO DAILY 90 days methocarbamol 750 mg PO Q6H PRN naltrexone 25 mg PO DAILY nitrofurantoin monohyd/m-cryst 100 mg (Macrobid) 100 mg PO BID 10 days pantoprazole 40 mg PO DAILY polyethylene glycol 3350 (Miralax) 17 grams PO DAILY 30 days primidone 50 mg PO BEDTIME 90 days trazodone mg PO HPI Comments Details: She was doing okay. Tremors are okay with primidone. She noticed more tremors if she missed a dose. No functional impairment. No difficulty eating, drinking, or swallowing. Ongoing pain in legs and thighs, legs are achy. Arthritis pains to knees and back, referred to pain clinic. Off balance at times, walking with walker. She had a heart attack in 07/2023 as a complication of DTPA and sepsis in the ICU. Also had COVID. Around 2021, she noted tremors in her hands, left greater than right that affects her ability to type and sometimes she spills things with her left hand. She had a single syncopal episode in 01/2024 when she stood up and her sister lowered her. She was unresponsive for about 2-3 min. and was tremulous. Her sugar at that time was 36. She was taken to the ER, and it took a while before the sugar came up with a glucose. She has also had some left occipital sharp pains diagnosed as occipital neuralgia. She suffers from daily headaches for several hours in the day at any time without any other associated symptoms. She takes 1300 mg of Tylenol every single day. She feels that her memory is not as sharp as it used to be and sometimes she loses train of thought, but it comes back to her. She has problems recalling certain conversations and has word finding difficulties. 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 She had a cardiac catheter which was unremarkable. There is no family history of tremor. [facility] Medical History Carotid stenosis, bilateral Elevated serum GGT level Atherosclerotic cardiovascular disease Non-ST elevation PR (NSTEMI) Action tremor Chronic headaches GERD (gastroesophageal reflux disease) Hyperlipidemia Depression Pneumonia Sepsis Barretts esophagus Dyslipidemia HTN (hypertension) Charcot's joint of foot Diabetes Surgical History History of esophagogastroduodenoscopy (EGD) Hx of colonoscopy H/O foot surgery Hx of cholecystectomy H/O: hysterectomy Family History Son Substance use disorder Father Substance use disorder Mother Substance use disorder Family/Other Substance use disorder Maternal Grandfather Heart problem Maternal Uncle Heart problem Paternal Grandmother Heart problem Sister Heart problem Social History (Reviewed 04/29/25 @ 16:21 by STEVIE Boyce Household Members: None Housing: Condominium Do you presently have visiting nurse or other home services: No Alcohol intake: never Patient Tobacco Use Status: Never used Tobacco e-Cigarette/Vaping Use: Never Used Second Hand Smoke Exposure: No Advance Directives Date on File: 07/25/23 service: No Current occupational status: employed 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 Current occupational exposures/hazards: No Cognitive needs: No Hearing needs: No Vision needs: No Review of Systems Const Denies chills, Denies daytime sleepiness, Reports difficulty sleeping, Denies fatigue, Denies fever(s), Denies frequent falls, Reports headache(s), Denies increased appetite, Denies poor appetite, Denies snoring, Denies weakness, Denies weight gain and Denies weight loss Eyes Denies loss of vision ENT Denies vertigo, Denies dizziness, Reports headache(s) and Reports neck pain Card Denies chest pain at rest, Denies chest pain with activity, Denies syncope, Denies leg edema, Denies palpitations, Denies dyspnea and Denies dyspnea on exertion Resp Denies cough, Denies dyspnea, Denies dyspnea on exertion and Denies snoring GI Denies abdominal pain, Denies constipation, Denies heartburn, Denies diarrhea and Denies nausea Denies urinary frequency, Denies urinary incontinence and Denies urinary urgency Musc Reports abnormal gait (balance difficulty), Reports back pain, Reports myalgias, Reports arthralgias, Reports neck pain, Reports numbness and Reports tingling Neuro Reports abnormal gait (balance difficulty), Denies vertigo, Denies dizziness, Denies syncope, Denies frequent falls, Reports headache(s), Denies lack of coordination, Denies loss of vision, Reports memory loss, Reports numbness, Denies Other visual disturbances, Denies restless legs, Denies seizure-like activity, Reports tingling, Denies paresthesias, Reports tremor(s) and Denies weakness Psych Reports anxiety, Denies depression, Denies auditory hallucinations, Reports memory loss and Denies visual hallucinations Endo Denies fatigue and Denies palpitations Physical Exam Const Other: General Appearance:? normal, in no acute distress. Heart:? S1, S2 normal, no murmurs. Lungs:? clear anteriorly and posteriorly. Musculoskeletal:? normal. Extremities:? no edema. Psych:? alert, oriented, cognitive function intact, cooperative with exam. Neuro Other: Abnormal Neurological Findings:?Fine tremors of for low amplitude high frequency of the extended upper extremities, slightly more on the left than the right.? Mild atrophy and weakness of the ulnar innervated intrinsic hand muscles on the left.? Absent ankle reflexes with blunting of pinprick and vibration below the mid tarsal level.? Mental Status: alert and oriented X 3. Normal attention, orientation, memory, and affect. Cranial Nerves: Pupils are equal, round, and reactive to light. External ocular muscles are intact. Visual banda are full, no ptosis. Face is symmetrical, no facial weakness or droop. Facial sensations are normal. Tongue protrudes in midline. Palate elevates symmetrically. Shoulder shrugging is normal Motor Examination: As above. Sensory Exam: As above. Coordination: No ataxia. No titubation. Gait Exam: Within normal limits. Cerebellar Signs: [id number] is okay. Extrapyramidal System: Tremor as above. No rigidity with normal facial expressions. No bradykinesia. No bradyphrenia. Normal arm swing and posture. No propulsion or retropulsion. Speech: Normal. Results Reviewed Results Reviewed: 04/30/24 EEG- WNL 04/30/24 NCV/EMG ALL Low amplitudes in the ulnar nerves bilaterally, left worse than right. Diffuse axonal sensory and motor peripheral neuropathy in the lower extremities. EMG of the left ulnar and lower extremities is consistent with neuropathic changes. Assessment & Plan Assessment & Plan (1) Benign essential tremor: Code(s): G25.0 - Essential tremor Category: Medical Plan: Continue primidone 50mg 1 tablet at bedtime. (2) Peripheral neuropathy: Code(s): G62.9 - Polyneuropathy, unspecified Category: Medical Qualifiers: Peripheral neuropathy type: polyneuropathy, unspecified Qualified Code(s): G62.9 - Polyneuropathy, unspecified Plan: Continue gabapentin 300mg 2 capsules three times a day. (3) Cerebral microvascular disease: Code(s): I67.89 - Other cerebrovascular disease Category: Medical Plan . Coding Level of Care Code Est Pt Level 4 (83053) Diagnoses Benign essential tremor G25.0 Peripheral polyneuropathy G62.9 Peripheral neuropathy type: polyneuropathy, unspecified Cerebral microvascular disease I67.89
--- OUTSIDE RECORDS SUMMARY | 2025-06-04 16:34 | XMS_ITS | Continuity of Care Document ---
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 04/24/2025 Novolog Xwnhllx289Cpxl/ML Solution Pen-Inject inject 10 subcutaneously units 3 times a day before meals 30ml E11.42 Susan Bui M.D. 06/30/2024 Baqsimi One Tzfh2kk/Dose Powder spray into nostril as needed for low sugar reaction 1units Susan Bui M.D. 02/14/2024 Lantus Lhlxtxud828Gthw/ML Solution Pen-Inject inject 50 units daily as directed 45ml E11.42 Susan Bui M.D. 10/26/2023 Xzgzvnnga60ww Tablets Take 1 Tablet By Mouth Every Day For 30 Days Lynnette Cardona MD Atorvastatin Sbqnhrs35qz Tablets 1 by mouth every day Unknown Amlodipine Tostavrs1gf Tablets Take 1 Tablet (5 MG Total) By Mouth Daily. Unknown Repatha Sfufzknby558ku/ml Solution Auto-Inject inject 1 syringe under the skin every 2 weeks Unknown Aspirin 8181mg Tablets DR 1 by mouth every day Susan Bui M.D. Hydroxyzine AGL36fh Tablets Take 1 Tablet By Mouth Every Day as Needed Unknown Dexcom G6 SensorMisc use 1 sensor every 10 days 9units E11.42 Susan Bui M.D. Dexcom G6 SensorMisc Please See Attached For Detailed Directions Unknown Mzrezyqaic663zv Capsules Take 2 Capsule By Mouth Three Times A Day Unknown Dexcom G6 TransmitterMisc To Use With Sensors DX E11.42 1units E11.42 Susan Bui M.D. Pantoprazole Uvbbxb84zk Tablets DR Take 1 Tablet By Mouth Every Morning (Before Breakfast) For 360 Days. Unknown Albuterol Sulfate FOE923(90Base) mcg/Act Aerosol Take 2 Puffs By Mouth Every 4 Hours as Needed For Wheeze Unknown Ipratropium Bromide0.06% Solution Administer 2 Sprays Into Each Nostril Every 6 Hours as Needed For Rhinitis. Unknown Whlteummbq40it Tablets Take 1 Tablet By Mouth Every Day Unknown Hyoscyamine Sulfate0.125mg Tablets Take 1 Tablet By Mouth 4 Times Daily as Needed For Cramping Or Diarrhea For Up T Unknown Basaglar Sfqldqz588Cdcv/ML Solution Pen-Inject Inject 55 Units Into The Skin AT Bedtime 60ml E11.42 Susan Bui M.D. Trazodone NQD913iq Tablets Take 1 Tablet By Mouth Everyday [...] Inhouse Hemoglobin A1c 6.9% Gad65 Autoantibodies 08/15/2023 [facility] Gad65 Autoantibodies <5.0 1 Islet Cell Antibody 512 08/15/2023 [facility] Islet Cell Antibody 512 <7.5 2 Insulin Antibody 08/15/2023 [facility] Insulin Antibody 12 High 3 1 Reference range: 0.0 to 5.0 Unit: U/mL Test performed at [address] [address] Unit: U/mL (NOTE) Reference Range: <7.5 Negative > or EQ 7.5 Positive Test performed by [facility], [address] [place] [address] 3 Unit: uU/mL (NOTE) This test is also known as insulin autoantibody or IAA. This test was developed and its performance characteristics determined by [facility]. It has not been cleared or approved by the Food and Drug Administration. Reference Range: <5.0 Negative > or EQ 5.0 Positive Test performed by [facility], [address] [facility], [place] [address] Procedures Date Code Description Status 08/10/2023 64210 Collection Of Venous Blood B y Venipuncture [...] Chip Meyer MD POSSIBLE SEIZURES Closed [address] [facility] [address] [place] [address] [phone]
== END 2025-06-04 16:28 | disposition home or self-care (01) ==
LOC: HO.HSM 15:53
PROVIDERS: PCP Physician Assistant Medical; Visit Provider Registered Nurse
DX: G25.0 Essential tremor (principal); G62.9 Polyneuropathy, unspecified; I67.89 Other cerebrovascular disease
CPT/HCPCS: 99214

== ENCOUNTER 2025-06-10 16:17 | Outpatient (AMB) | payer BC, SELFPAY ==
--- OUTSIDE RECORDS SUMMARY | 2025-06-09 13:45 | XMS_ITS | Encounter Summary ---
Author Organization [facility] Address [address] [place] [id number] Care Team Providers Care Director Of Sleep Name Role Phone Ranjana Villarreal PA-C Primary Care Provi erika Reason for Referral * Outpatient Surgery (Routine) - Pending Review Specialty Diagnoses / Procedures Referred By Contaster t Referred To Contact Diagnoses Primary osteoarthritis of right knee Marc Reynolds MD [address] [facility] [address] [place] [address] Phone: tel: fax: Referral ID Status Reason Start Date Expiration Date V isits Requested Visits Authorized [id number] Pending Review 06/09/2025 06/10/2026 1 1 Question Answer Primary Procedure: 65142 - TKA Additional Procedure(s): None Procedure: RIGHT TOTAL KNEE ARTHROPLASTY Surgery Date 07/20/2025 Laterality: Right Performing Location: [facility] Duration (Mins): 120 Admission: 23 Hours w/Observation Anesthesia: SPINAL Workers Comp? No Reason for Visit * Reason Comments Pain Encounter Details Date Type Department Care Team (Late st Contact Info) Description 06/09/2025 1:45 PM EDT [facility] [address] [place] [address] [phone] Marc Reynolds MD [address] [place] [address] Primary osteoarthritis of right knee (Primary Dx) Social History Tobacco Use Types [...] as of this encounter Progress Notes * Marc Reynolds MD - 06/09/2025 1:45 PM EDT Images from the original note were not included. [address] [facility] [address] [address] Encounter Date: 06/09/2025 History of Present Illness: Ewelina Mathis is a 60 y.o. female who presents today for follow-up evaluation of her right knee. She has severe arthritis of both sides. Remains most symptomatic on the right. She reports at this point pain is simply progress to the point she is having trouble walking. She needs a rollator for ambulation. Pain is located diffusely throughout the knee and associated with weightbearing. Relieved tosome extent with rest. The corticosteroid injection that we performed in March gave no lasting relief. Pain is worse with: walking prolonged standing pain and difficulty with stairs getting in and out of chair Treatments to date include: tylenol, Assistive device use, Activity modification, and Corticosteroid injection She is unable to take NSAIDs due to her CKD. Renal function has been slightly improving since she has discontinued NSAIDs and lisinopril. History of diabetes. Most recent hemoglobin A1c is 7.1. 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 Physical Exam Right Knee: Ambulates with an antalgic gait Tender to palpation over the joint line Demonstrates decreased terminal extension and flexion Stable ligamentous exam No evidence of referred pain from the hip Distal neurovascular intact Diagnostic Data Radiographs of the right knee AP Hernandez lateral and sunrise view are reviewed. X-rays demonstrate severe kaic-dc-ilyj arthritis with loss of joint space subchondral sclerosis and osteophyte formation. Assessment & Plan 1. Primary osteoarthritis of right knee RIGHT TOTAL KNEE ARTHROPLASTY Ewelina presents with severe rvgl-ir-tqzm arthritis of her right knee. She has failed conservative management. She reports severe daily pain, decreased function, and decreased quality of life due to her right knee. She wishes to pursue right knee replacement. I believe she is a reasonable candidate to do so. We did discuss she is at elevated risk of medical and surgical complications given her medical comorbidities of obesity CKD and diabetes. With an understanding of this she wants to move forward with the surgery. Plan for right total knee arthroplasty. Press-fit versus cemented component fixation to be based onintraoperative bone quality. Today we reviewed the diagnosis of knee arthritis and the treatment options for it in detail. Nonoperative treatments are the first line of treatment, and it was emphasized that joint replacement should only be considered when the pain and the functional limitations of the joint are so great that the benefits of reconstruction outweigh the risks of an elective but major surgery. We discussed the risks, benefits, indications, and alternatives of total knee arthroplasty at length. The perioperative plan of care, nature of the surgery, and post-operative instructions were reviewed. The risks and proposed benefits of total knee arthroplasty were discussed with the patient in detail. The benefits involve relief of pain and the associated improvement in quality of life. Improvement in knee fcmtu-nf-ppyliu or stiffness may or may not be attained and is less predictable. The risksof the surgery were detailed to the patient and include bleeding, infection, damage to nerves or blo od vessels, early postoperative arthrofibrosis potentially requiring manipulation under anesthesia,paco-prosthetic fracture, damage to the muscles, ligaments, tendons and soft-tissues about the knee, osteolysis due to bearing wear, instability, implant failure and implant loosening. We also discussed the risks of chronic pain, regional pain syndrome, and failure of the surgery to meet their expectations. We discussed that there is a possibility that if these problems do occur, revision surgeryor reoperation may be necessary. The patient was also informed that it can take from a year to 18 months to see the full benefits of a knee replacement and that their own effort in therapy contributes to a significant portion of the outcome. The plan to use an implant and type of materials were discussed with the patient. The possibility of implant failure needing revision in the future, was also discussed. While rare, severe complications can lead to loss of limb or loss of life. Medical risks were also explained to the patient and include deep venous thrombosis, pulmonary embolism, as well as cardiopulmonary, renal, gastrointestinal and neurological complications. All the patient??s questions were answered to their satisfaction, and they wish to proceed understanding the risks and issues involved. Marc Reynolds MD documented in this encounter Plan of Treatment Upcoming Encounters Date Type Department Care Team (Late st Contact Info) Description 06/12/2025 12:30 PM EDT Treatment Orthopedic [address] [address] Rubi Woo, PT [address] [place] [phone] 06/18/2025 11:20 AM EDT Consult [facility] [address] [phone] Maria D Hinojosa APRN [address] [place] [phone] 06/19/2025 8:15 AM EDT Consult Orthopedic [address] [phone] Jared Rousseau MD [address] [place] [phone] Milan Rodriguez, INTERACTIVE MEDIA MARKETING STRATEGIST 499 [facility] 300 [place] [address] 06/19/2025 12:30 PM EDT [facility] [address] [address] Rubi Woo, PT 7 [place], [place] [phone] 06/23/2025 1:15 PM EDT Telemedicine [facility] [address] [place] [phone] Rebecca Angel, INTERACTIVE MEDIA MARKETING STRATEGIST [address] [address] 06/26/2025 12:30 PM EDT [facility] [address] [address] Rubi Woo, PT 7 [place] [address] 07/02/2025 4:15 PM EDT Office Visit [facility] [address] [phone] Mai Wisdom, INTERACTIVE MEDIA MARKETING STRATEGIST 100 [facility] 101 [place] [address] 07/13/2025 8:00 AM EDT Telemedicine Clinical Support [facility] [address] [phone] Meredith Waters, MARY [address] [place] [address] [address] [address] Reji Amos, RD 32 [place] [address] 07/14/2025 8:15 AM EDT [facility] [address] [address] Marc Reynolds MD [address] [phone] 07/20/2025 1:00 PM EDT Hospital Encounter [facility] at [address] [phone] Marc Reynolds MD [address] [address] 07/20/2025 1:00 PM EDT - 07/20/2025 3:30 PM EDT Surgery [facility] at [address] [phone] Marc Reynolds MD [address] [address] ARTHROPLASTY TOTAL KNEE 08/04/2025 10:30 AM EST [facility] [address] [phone] Marc Reynolds MD [address] [address] 09/03/2025 8:15 AM EST [facility] [address] [address] Jared Rousseau MD [address] [place] [phone] 10/08/2025 8:00 AM EST Office Visit [facility] [address] [phone] Ranjana Villarreal PA-C [address] [place] [address] Scheduled Procedures Name Priority Associated Diagnoses Date/Ti me ARTHROPLASTY TOTAL KNEE Primary osteoarthritis of right knee 07/20/2025 1:00 PM EDT Scheduled Referrals Name Type Priority Associated Diagnoses Orde r Schedule RIGHT TOTAL KNEE ARTHROPLASTY Outpatient Referral Routine Primary osteoarthritis of right knee Ordered: 06/09/2025 documented as of this encounter Goals Goal Patient Goal Type Associated Problems Recent Progress Patient-Stated? Author PT LTG 1 Physical Therapy Not on track(05/29 1:31 PM EDT) No Rubi Woo, PT [...] in 8 weeks to avoid future falls. Autogenerated Goal Care Plan Autogenerated Problem No Danielle Duckworth documented as of this encounter Visit Diagnoses Diagnosis Primary osteoarthritis of right knee- Primary Primary osteoarthritis of right knee documented in this encounter Additional Health Concerns Active Problems Noted Date Diagnosed Date Autogenerated Problem 06/09/2025 documented as of this encounter Care Teams Director Of Sleep Relationship Specialty Start Date End Date Ranjana Villarreal PA-C [address] [place] [address] PCP - General Internal Medicine 11/03/24 documented as of this encounter
--- OUTSIDE RECORDS SUMMARY | 2025-06-10 08:00 | XMS_ITS | Encounter Summary ---
Author Organization [facility] Address [address] [place] [id number] Care Team Providers Care Mail Clerks Supervisor Name Role Phone Ranjana Villarreal PA-C Primary Care Provi erika Reason for Visit * Nutrition Services (Routine) - Closed Specialty Diagnoses / Procedures Referred By Contaster t Referred To Contact Nutrition Diagnoses Morbid obesity (HCC) Rebecca Angel APRN [address] [address] Phone: tel: fax: [facility] Nutrition Services [address] [place] [phone] Phone: tel: fax: Referral ID Status Reason Start Date Expiration Date V isits Requested Visits Authorized [id number] Closed Support Services 12/15/2024 09/30/2025 99 [phone] Encounter Details Date Type Department Care Team (Latest Contact Info) Description 06/10/2025 8:00 AM EDT Telemedicine Clinical Support [facility] Nutrition Services [address] [place] [phone] Meredith Waters NP [address] [place] [phone] [place] [phone] Type 2 diabetes mellitus without complication, with long-term current use of insulin (HCC) (Primary Dx); Morbid obesity (HCC) Social History Tobacco Use [...] Sign Reading Time Taken Comments Blood Pressure - - Pulse - - Temperature - - Respiratory Rate - - Oxygen Saturation - - Inhaled Oxygen Concentration - - Weight 125 kg (276 lb) 06/10/2025 9:05 AM EDT Height - - Body Mass Index 45.93 05/27/2025 12:44 PM EDT documented in this encounter Progress Notes * Reji Amos, DILIP - 06/10/2025 8:02 AM EDT Virtual Nutrition Followup Name: Ewelina Mathis Date: 06/10/2025 Provider:Reji Amos Location of Visit: [facility] Referred by: Ranjana Villarreal* Reason(s) for Referral: E66.01 (ICD-10-CM) - Morbid obesity (HCC) Ewelina G Lynchis being seen today for a visit the telehealth technology via ADP The patient's identity was confirmed by name and date of . The patient reported the following physical address during the telehealth visit: [address] [facility] [phone] In the event this visit is discontinued, the patient's telephone contact is: [phone] Additional persons present during telehealth visit: none. Patient verbally consented to participate in a Virtual Check-In visit today and understands that they may or may not be required to share in the cost of this service. All standard copays, coinsurance& deductibles apply. The patient was told that if at any point they or the provider feel the telephone visit is not adequate they can opt for scheduling a face to face visit. In the event the connection was lost during the visit, the patient was instructed to call back. Technologic quality of visit was good. Food Related Allergies: Allergies Allergen Reactions ??? Ceftriaxone Rash/Dermatitis ??? Metformin Diarrhea Anthropometrics: Weight: (per pt) Wt Readings from Last 1 Encounters: 06/10/25 125 kg (276 lb) Height: Ht Readings from Last 1 Encounters: 05/27/25 1.651 m (5' 5 ) Weight Change: Reduce Body mass index is 45.93 kg/m??. IBW 125 lbs (56.8 kg) AdjBW: 191 lbs (86.8 kg) Weight History: Wt Readings from Last 3 Encounters: 06/10/25 125 kg (276 lb) 05/27/25 124 kg (273 lb) 05/06/25 124 kg (273 lb) Nutrition Physical Findings / Physical Appearance: n/a zoom Nutrition Assessment / Summary Reji Amos met with Ewelina white via telehealth using [facility]'s policies and procedures as a part of the modify program. She has a tentative scheduled surgery for 07/20/2025. Patient has reported that stress continues to influence her overall dietary intake which influences overall blood glucose numbers. She has reported that her meal patterns consist of two meals a day along with one snack. She reported over the weekend she experienced waking up in the middle of the night three nights in a row with blood glucose values under 70mg/dL and experiencing symptoms of nausea sweating and not feeling good?? - this is related to her friend saying if she want to lose weight she should not consume anything after a specific time (i.e 7:00PM). She also experiences low blood glucose values late afternoon as she typically skips lunch regularly too. With further questioning she reports that she experiences anxiety when she consumes a meal and she sees her blood sugar going up because of previously experiencing DKA. This demonstrates a food and nutrition knowledge deficit, butpatient is open to implementing a small snack or meal. In relation to dietary quality and quantity your overall needs have minimally changed. In relation to dietary quantity, she does report that theanxiety emotion she experiences increases her overall portion sizes with meals after experiencing a low blood glucose value. She also reports that she will inject 10 units of insulin even at meals with minimal carbohydrates - likely influenced increase frequency of low BG values. Will continue to monitor. Will continue to monitor 24 Hour Recall: AMBG Ranges: 160 mg/dL Meal #1: (10:30 AM) Low Carbohydrate Bagel + Cream Cheese + 2 Hardboiled eggs After Meal #1 (~12:30PM) -- 230 mg/dL Meal #2 Scrambled Eggs + 1 Tangelo -- 180 mg/dL mg/dL BG after dinner (60-90 minutes) 130 mg/dL prior to bed (took 40 units insulin) Beverages: - Water Intake: Yes Juan J (30 fl oz) -- 2.5 per day (increase) - Juice Intake: No - Soda Intake: Yes -- Diet Soda 2 x 20 fl oz over 2 weeks - Alcohol Intake: No Nutritional Supplements: MVT Estimated Daily Energy and Protein Needs: Calories: 1779 calories per day Protein: 52 - 69 grams / day (0.6-0.8 g/kg) Based On: IBW, YACHT CAPTAIN, [place], Active Weight Loss (-500 per day), Activity Level (low) Additional Nutrition Information - GI Symptoms: none reported Learning / Needs Assessment - Food/Nutrition Knowledge: Yes - Stage of Change preparation - Motivation level is Moderate - Comprehension of Nutrition Information Provided: Yes Barriers to Education: Fatigue/Pain Labs / Medications: Labs: Lab Results Component Value Date HGBA1C 7.3 (H) 01/07/2024 Lab Results Component Value Date LDLCHOL 53 01/29/2025 Lab Results Component Value Date HDL 47 (L) 01/29/2025 Lab Results Component Value Date CHOL 124 01/29/2025 Lab Results Component Value Date TRIG 153 (H) 01/29/2025 Lab Results (Renal): 06/04/2025 - 3:30 PM Urine glucose - negative Blood Glucose - 105 mg/dL HA1c: n/a Creatinine: 1.63 SMBG: AM Range: Woken up in the middle 3 nights in a row -- (night 1#) 59 mg/dL , (night 2#) 59 mg/dL , (night #3) 69 mg/dL - Symptoms: Nausea, Sweating, not feeling good Sunday: 47 mg/dL after a doctor/message therapist appointment (4 PM-5:30 PM) Medications: ??? acetaminophen (TYLENOL) 500 MG tablet Take 1 tablet (500 mg total) by mouth 4 times daily (every 6 hours) as needed for mild pain. ??? albuterol (PROVENTIL HFA; VENTOLIN HFA) 108 (90 Base) MCG/ACT inhaler INHALE 2 PUFFS EVERY 4 TO6 HOURS NEEDED FOR SHORTNESS OF BREATH OR FOR WHEEZE ??? amLODIPine (NORVASC) 5 MG tablet Take 1 tablet (5 mg total) by mouth daily. ??? aspirin enteric coated (ECOTRIN LOW STRENGTH) 81 MG EC tablet Take 1 tablet (81 mg total) by mouth every morning. ??? atorvastatin (LIPITOR) 80 MG tablet Take 1 tablet (80 mg total) by mouth every morning. ??? budesonide-formoterol (SYMBICORT) 160-4.5 MCG/ACT inhaler Inhale 2 puffs twice daily (every 12 hours). ??? buPROPion (WELLBUTRIN XL) 300 MG 24 hr tablet Take 1 tablet (300 mg total) by mouth every morning. ??? Continuous Glucose Sensor (Dexcom G6 Sensor) [facility] USE 1 SENSOR EVERY 10 DAYS ??? Continuous Glucose Transmitter (Dexcom G6 Transmitter) [facility] 1 DEVICE BY DOES NOT APPLY ROUTE SEE ADMIN INSTRUCTIONS. CHANGE TRANSMITTER EVERY 3 MONTHS. ??? estradiol (ESTRACE) 0.01 % vaginal cream APPLY PEA-SIZED AMOUNT TO URETHRA DAILY X 1 MONTH THENTHREE DAYS A WEEK THEREAFTER ??? evolocumab (REPATHA SURECLICK) 140 MG/ML auto-injector Inject 1 mL (140 mg total) under the skin every 14 days (2 weeks). ??? gabapentin (NEURONTIN) 300 MG capsule Take 1 capsule (300 mg total) by mouth 3 (three) times a day. ??? hydroCHLOROthiazide (MICROZIDE) 12.5 MG capsule Take 1 capsule (12.5 mg total) by mouth every morning. ??? hydrOXYzine HCl (ATARAX) 10 MG tablet Take 1 tablet (10 mg total) by mouth daily as needed. ??? insulin aspart (NovoLOG FlexPen) 100 UNIT/ML prefilled pen injection Inject 10 Units under the skin 3 (three) times a day before meals. Patient reports utilizing sliding scale ??? insulin glargine (insulin glargine, BASAGLAR KWIKPEN,) 100 units/mL prefilled pen injection Inject 50 Units under the skin nightly. ??? ipratropium (ATROVENT) 0.03 % nasal spray as needed. ??? ipratropium-albuterol (DUONEB) 0.5-2.5 mg/3 mL nebulizer solution 3 ML INHALED EVERY 6 HOURS ASNEEDED FOR WHEEZING ??? lisinopril (PRINIVIL,ZeSTRIL) 10 MG tablet Take 1 tablet (10 mg total) by mouth nightly. ??? meloxicam (MOBIC) 7.5 MG tablet Take 1 tablet (7.5 mg total) by mouth daily. ??? methocarbamol (ROBAXIN) 750 MG tablet Take 1 tablet (750 mg total) by mouth 4 (four) times a day as needed for muscle spasms. ??? Multiple Vitamin tablet Take 1 tablet by mouth every morning. ??? naltrexone (REVIA) 50 MG tablet Take 1 tablet (50 mg total) by mouth every morning. ??? PANTOprazole (PROTONIX) 40 MG EC tablet Take 1 tablet (40 mg total) by mouth daily. ??? phenazopyridine (PYRIDIUM) 200 MG tablet Take 1 tablet (200 mg total) by mouth 3 (three) times a day in the morning, mid-day and early evening. ??? primidone (MYSOLINE) 50 MG tablet Take 1 tablet (50 mg total) by mouth nightly. SUPPLY [facility] Rajiv with seat & breaks [facility] [address], [place] [address] ??? traZODone (DESYREL) 100 MG tablet Take 1 tablet (100 mg total) by mouth nightly. Nutrition Diagnosis: Overweight/Obesity related to excess energy intake and sub optimal activity level, as evidenced by Body mass index is 45.93 kg/m??. - continues Inadequate carbohydrate intake r/t Type 2 diabeites AEB dexacom alerts of <70 mg/dL at night -- continues Interventions/Recommendations: Discussed with patient the role of the RD in the scope of patient care in regards to the purpose ofnutrition education in relation to health and disease and recommended modifications. Patient Goals: 1) Eat 2 meals and 2 larger snacks per day (Breakfast, Snack #1, Dinner, Snack Pre -Bed) 2) Ask die stamper about insulin regiment specifically prior to bed. 3) Test blood glucose regularly. Monitoring & Evaluation: RD will monitor and evaluate nutrition prescription and provide additional interventions and recommendations based on nutrition/clinical status. Follow Up Time Frame: 4 weeks Visit Length: 60 minutes Sign: Reji Amos RD 06/10/2025 9:06 AM BJI MODIFY Visit type: Office visit Contact type: Follow-up visit Referral reason: Weight loss and DM control Referring Provider: Rebecca Angel APRN Is surgery being contemplated? Yes Planned surgery type: Joint Date of surgery: 07/20 Progress at each contact: Worse Status in program: Continued participation documented in this encounter Plan of Treatment Upcoming Encounters Date Type Department Care Team (Late st Contact Info) Description 06/12/2025 12:30 PM EDT Treatment [facility] [address] [place] [id number] Rubi Woo, PT [address] [place] [address] 06/18/2025 11:20 AM EDT Consult [address] [phone] Maria D Hinojosa APRN [address] [place] [address] 06/19/2025 8:15 AM EDT Consult [facility] [place] 31 [facility] 100 [place] [address] Jared Rousseau MD 31 [facility] 100 [place] [address] Milan Rodriguez, MARCOS 499 [facility] 300 [place] [address] 06/19/2025 12:30 PM EDT Treatment [facility] [address] [place] [address] Rubi Woo, PT 7 [place] [address] 06/23/2025 1:15 PM EDT Telemedicine [facility] [address] [place] [address] [address] [place] [address] Rebecca Angel APRN [address] [address] 06/26/2025 12:30 PM EDT Treatment [facility] [address] [address] Rubi Woo, PT 7 [place] [address] 07/02/2025 4:15 PM EDT Office Visit [facility] 100 [facility] 101 [place] [phone] Mai Wisdom APRN 100 [facility] 101 [place] [address] 07/13/2025 8:00 AM EDT Telemedicine Clinical Support [facility] Nutrition Services 32 [facility] 1st [place] [phone] Meredith Waters NP 31 [facility] [address] [address] Reji Amos, DILIP 32 [place] [address] 07/14/2025 8:15 AM EDT [facility] [address] [address] Marc Reynolds MD [address] [place] [phone] 07/20/2025 1:00 PM EDT Hospital Encounter [facility] at [address] [phone] Marc Reynolds MD [address] [address] 07/20/2025 1:00 PM EDT - 07/20/2025 3:30 PM EDT Surgery [facility] at [address] [phone] Marc Reynolds MD [address] [place] [phone] ARTHROPLASTY TOTAL KNEE 08/04/2025 10:30 AM EST [facility] [address], [place] [address] Marc Reynolds MD [address] [phone] 09/03/2025 8:15 AM EST [facility] [address] [phone] Jared Rousseau MD 31 [facility] 100 [place] [address] 10/08/2025 8:00 AM EST Office Visit [facility] 100 [facility] [address] [place] [address] Ranjana Villarreal PA-C 100 [place] [address] Scheduled Procedures Name Priority Associated Diagnoses Date/Ti me ARTHROPLASTY TOTAL KNEE Primary osteoarthritis of right knee 07/20/2025 1:00 PM EDT documented as of this encounter Goals [...] as of this encounter Visit Diagnoses Diagnosis Type 2 diabetes mellitus without complication, with long-term current use of insulin (HCC)- Primary Morbid obesity (HCC) Morbid obesity Primary osteoarthritis of right knee documented in this encounter Additional Health Concerns Active Problems Noted Date Diagnosed Date Autogenerated Problem 06/09/2025 documented as of this encounter Care Teams Mail Clerks Supervisor Relationship Specialty Start Date End Date Ranjana Villarreal PA-C 100 [place] [address] PCP - General Internal Medicine 11/03/24 documented as of this encounter
[2025-06-10 16:19] VITALS: BP 140/76; PULSE 98; O2SAT 96; BMI 47.8
--- NOTE | 2025-06-10 16:19 | HO.NEPHOV ---
Vital Signs 06/10/25 16:19 Height 5 ft 5 in Weight 287 lb BMI 47.8 BP 140/76 H Blood Pressure Location Lt brachial Position Sitting Pulse 98 Pulse Source Pulse Oximeter Pulse Oximetry (%) 96 Oxygen Delivery Method Room Air Intake Visit Reasons: 5 week f/u-Conf Scientific Software Engineer Required: No Accompanied by: Self / Same As Patient Allergies cephalexin Allergy (Intermediate, Verified 06/10/25 16:21) Rash metformin Adverse Reaction (Verified 06/10/25 16:21) diarrhea and vomiting Medication List - Last Reconciled 06/10/25 by Abhijit Ramires MD acetaminophen ER 650 mg PO Q12H PRN albuterol sulfate 90 mcg/actuation 2 puffs PO Q4-6H PRN amlodipine 5 mg PO DAILY ascorbic acid (vitamin C) 1 g PO DAILY 90 days aspirin 81 mg PO DAILY atorvastatin 80 mg PO DAILY blood-glucose sensor (Dexcom G6 Sensor device) As directed blood-glucose transmitter (Dexcom G6 Transmitter device) As directed budesonide-formoterol 160-4.5 mcg/actuation (Symbicort) 2 puffs inhalation Q12H bupropion HCl XL 300 mg PO DAILY estradiol 0.01%(0.1mg/gram) 2 grams vaginal DAILY 90 days evolocumab (Repatha SureClick) 140 mg subcut Q2W 90 days fluticasone propionate 50 mcg/actuation (Flonase Allergy Relief) 1 spray intranasal DAILY gabapentin 600 mg (2 x 300 mg) PO TID 90 days hydrochlorothiazide 25 mg PO DAILY hydroxyzine HCl 10 mg PO DAILY PRN insulin glargine (Basaglar KwikPen U-100 Insulin) 50 units subcut QPM insulin lispro (Humalog KwikPen (U-100) Insulin) 10 sliding scale doses subcut USEASDIRECTD ipratropium bromide 2 sprays intranasal BID ipratropium-albuterol 0.5 mg-3 mg(2.5 mg base)/3 mL 3 mL inhalation Q6H PRN methenamine hippurate 1 g PO DAILY 90 days methocarbamol 750 mg PO Q6H PRN naltrexone 25 mg PO DAILY nitrofurantoin monohyd/m-cryst 100 mg (Macrobid) 100 mg PO BID 10 days pantoprazole 40 mg PO DAILY polyethylene glycol 3350 (Miralax) 17 grams PO DAILY 30 days primidone 50 mg PO BEDTIME 90 days trazodone mg PO HPI Comments Details: Ewelina is a pleasant 59 year woman with a history of longstanding diabetes mellitus. She has been referred for evaluation of CKD. Baseline creatinine is around 1.0-1.2 mg/dL about a year ago. In March of 2024 she was prescribed Ozempic. After few doses she was sick and she was having vomiting. She was hospitalized and received IV hydration. In March creatinine peaked to 2.2 mg/dL. Creatinine has been staying around 1.6 mg/dL for the last 3 months and she has been for further evaluation. She has had recurrent UTIs. The recent abdominal ultrasonogram showed unremarkable kidneys without any hydronephrosis. She has a history of occipital neuralgia. History of flu significant obesity in the hypertension. History of Charcot joint 07/23/24 Doing well Still has urinary symptoms and feels she might have UTI 12/24/24. Doing better Gained weight;BP elevated ; EAts popcorn everyday;No further UTI 04/01/25 The patient is a 59-year-old female presenting with hyperkalemia and back pain. The hyperkalemia was identified with a potassium level of 5.8 mmol/L, elevated from a previous level of 5.2 mmol/L in November. The patient has been on lisinopril for a while, and recently started taking meloxicam, which may have contributed to the increased potassium levels. The patient has been advised to discontinue meloxicam due to its potential to elevate potassium levels, especially in combination with lisinopril. The patient reports back pain for which she was prescribed meloxicam and a muscle relaxant. She has a history of diabetes mellitus and was advised against taking NSAIDs due to potential renal implications. The patient has experienced increased leg swelling, which is more pronounced than before, and is currently taking hydrochlorothiazide for fluid management. The patient's weight has decreased from 290 pounds in November to 281 pounds recently, despite the swelling. The patient denies any significant changes in diet that could have contributed to the hyperkalemia, such as increased intake of potassium-rich foods. 04/29 BP low Light headed 06/10/25 Feels better BP stabilzed No lightheadedness Off Lisinopril [facility] Medical History Carotid stenosis, bilateral Elevated serum GGT level Atherosclerotic cardiovascular disease Non-ST elevation NM (NSTEMI) Action tremor Chronic headaches GERD (gastroesophageal reflux disease) Hyperlipidemia Depression Pneumonia Sepsis Barretts esophagus Dyslipidemia HTN (hypertension) Charcot's joint of foot Diabetes Surgical History History of esophagogastroduodenoscopy (EGD) Hx of colonoscopy H/O foot surgery Hx of cholecystectomy H/O: hysterectomy Family History Son Substance use disorder Father Substance use disorder Mother Substance use disorder Family/Other Substance use disorder Maternal Grandfather Heart problem Maternal Uncle Heart problem Paternal Grandmother Heart problem Sister Heart problem Social History Household Members: None Housing: Condominium Do you presently have visiting nurse or other home services: No Alcohol intake: never Patient Tobacco Use Status: Never used Tobacco e-Cigarette/Vaping Use: Never Used Second Hand Smoke Exposure: No Advance Directives Date on File: 07/25/23 service: No Current occupational status: employed 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 Current occupational exposures/hazards: No Cognitive needs: No Hearing needs: No Vision needs: No Physical Exam Vital Signs: Last Vital Signs Pulse 98 06/10/25 16:19 BP 140/76 H 06/10/25 16:19 Pulse Ox 96 06/10/25 16:19 Oxygen Delivery Method Room Air 06/10/25 16:19 BMI result Body Mass Index 47.8 Const Other: Obese General: comfortable; No acute distress Orientation/consciousness: patient oriented x3 Eyes General: appearance normal, both eyes and all related structures Visual Murdock: normal visual murdock by confrontation Neck Neck: Yes supple and Yes no JVD Resp Effort & Inspection: normal respiratory effort and respiratory effort not decreased Auscultation: rhonchi Cardio Palpation: no palpable S3 and no palpable S4 Heart sounds: no rubs GI Inspection: Yes normal to inspection Palpation (GI): Soft to palpation Percussion: Yes normal to percussion Auscultation: normal bowel sounds General: Yes no CVA tenderness Back/Spine/Pelvis Back: no CVA tenderness Skin General skin exam: no petechiae and no purpura Neuro General: patient oriented x3 and no focal motor deficits Extrem General: No clubbing and No edema Results Reviewed Nephrology Results: Sodium, (135-145) 136 mmol/L 06/04/25 Potassium, (3.3-5.1) 4.7 mmol/L 06/04/25 Chloride, (96-108) 102 mmol/L 06/04/25 Carbon Dioxide, (22-29) 29 mmol/L 06/04/25 BUN, (9-16) 32 mg/dL H 06/04/25 Creatinine, (0.5-1.4) 1.63 mg/dL H 06/04/25 Calcium, (8.4-10.2) 9.6 mg/dL 06/04/25 Urine Protein, (Neg-Trace) 100 (2+) mg/dL H 06/04/25 Assessment & Plan Assessment & Plan (1) HTN (hypertension): Code(s): I10 - Essential (primary) hypertension Category: Medical (2) Hyperkalemia: Code(s): E87.5 - Hyperkalemia Category: Medical (3) CKD (chronic kidney disease): Code(s): N18.9 - Chronic kidney disease, unspecified Category: Medical (4) Obesity: Code(s): E66.9 - Obesity, unspecified Category: Medical (5) Anemia: Code(s): D64.9 - Anemia, unspecified Category: Medical Qualifiers: Anemia type: iron deficiency Plan Ewelina is a pleasant 59 woman with CKD 3. Differential diagnosis would include diabetic nephropathy. She has significant proteinuria most likely due to diabetic nephropathy. Nondiabetic causes seem unlikely based on serologies Baseline creatinine is around 1.4 to 1.6 Based on recent imaging she has no evidence of obstructive uropathy. Mild hypokalemia in the setting of CKD. Hypertension blood pressure well controlled. Recommendation Keep on low-sodium diet. She should stay on low-potassium diet as well. I will continue the YARED inhibitor for renal protection. Maintain blood pressure less than 130/80 Will benefit from weight loss Maintain A1C < 7% Continue to avoid nephrotoxic agents including NSAIDs. Goal is to slow the progression of renal disease Unable to use SGLT-2 inhibitor due to h/o DKA BP sub optimal Add low dose HCTZ 12.5 mg and titrate dose. . 04/01/2025 - Stop taking meloxicam immediately. - Schedule a blood test for Sunday to check potassium levels and kidney function. - Increase hydrochlorothiazide dosage as prescribed to manage swelling. - Use acetaminophen for pain relief instead of NSAIDs. - Monitor for any changes in swelling and report if it does not improve. . 04/29 Labs next week DC lisinopril bcas bp was low 06/10/25 Renal function improved and Potassium normalized after stopping Lisinopril 10 mg Add low dose ARB - Losartan 25 mg QD due to proteniruia in a setting of DM/Obesity and to optimize BP Watch Creatinine and Potassium Orders: Orders Basic Metabolic Panel 3 Months N18.9 - Chronic kidney disease, unspecified Medications: New losartan 25 mg PO DAILY 30 tabs 1RF Coding Level of Care Code Est Pt Level 4 (43678) Diagnoses HTN (hypertension) I10 Hyperkalemia E87.5 CKD (chronic kidney disease) N18.9 Obesity E66.9 Anemia D64.9 Anemia type: iron deficiency
--- OUTSIDE RECORDS SUMMARY | 2025-06-10 18:41 | XMS_ITS | Encounter Summary ---
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 Name Role Phone Ranjana Villarreal PA-C Primary Care Provi erika Encounter Details Date Type Department Care Team (Late st Contact Info) Description 06/08/2025 Orders Only [facility] [address] [place] [address] Primary Care, Scan Social History Tobacco Use [...] 06/12/2025 12:30 PM EDT Treatment [facility] [address] [address] Rubi Woo, PT 7 [place] [address] 06/18/2025 11:20 AM EDT Consult [facility] [address] [place] [phone] Maria D Hinojosa, EXPELLER OPERATOR [address] [place] [address] 06/19/2025 8:15 AM EDT [facility] [address] [place] [address] Jared Rousseau MD 31 [facility] 100 [place] [address] Milan Rodriguez, MARCOS 499 [facility] [address] [place] [address] 06/19/2025 12:30 PM EDT Treatment [facility] of [address] [address] Rubi Woo, PT 7 [place] [address] 06/23/2025 1:15 PM EDT Telemedicine [facility] [address] [place] [address] [address] [place] [address] Rebecca Angel APRN 31 [facility] [address], [place] [address] 06/26/2025 12:30 PM EDT Treatment [facility] [address] [place] [address] Rubi Woo, PT 7 [place] [address] 07/02/2025 4:15 PM EDT Office Visit [facility] [address] [facility] [address] [place] [phone] Mai Widsom, EXPELLER OPERATOR 100 [facility] 101 [place] [address] 07/13/2025 8:00 AM EDT Telemedicine Clinical Support [facility] [address] [place] [phone] Meredith Waters NP 31 [facility] [address] [address] Reji Amos, DILIP 32 [place] [address] 07/14/2025 8:15 AM EDT Office [facility] [address] [place] [address] Marc Reynolds MD [address] [address] 07/20/2025 1:00 PM EDT Hospital Encounter [facility] at [address] [phone] Marc Reynolds MD [address] [address] 07/20/2025 1:00 PM EDT - 07/20/2025 3:30 PM EDT Surgery [facility] at [facility] [address] [place] [address] Marc [place] MD 499 [facility] [address] [place] [address] ARTHROPLASTY TOTAL KNEE 08/04/2025 10:30 AM EST [facility] [address], [place] [address] Marc [place] MD 499 [facility] [address] [place], [place] [address] 09/03/2025 8:15 AM EST Office [facility] [address] [place] [address] Jared Rousseau MD [address] [place] [address] 10/08/2025 8:00 AM EST Office Visit [facility] 100 [facility] [address] [place] [phone] Ranjana Villarreal PA-C 100 [place] [address] Scheduled Procedures Name Priority Associated Diagnoses Date/Ti [...] future falls. documented as of this encounter Procedures Procedure Name Priority Date/Time Associated Diagnosis Comments LAB RESULT Routine 06/05/2025 12:46 PM EDT documented in this encounter Results * LAB RESULT (06/05/2025 12:46 PM EDT) us Scan Primary Care HX AMB PROCEDURES Edited Resul t - Final documented in this encounter Visit Diagnoses Not on filedocumented in this encounter Care Teams Auto Former Machine Operator Relationship Specialty Start Date End Date Ranjana Villarreal PA-C [address] [place] [address] PCP - General Internal Medicine 11/03/24 documented as of this encounter
--- OUTSIDE RECORDS SUMMARY | 2025-06-10 18:41 | XMS_ITS | Clinical Summary ---
Author Organization [facility] Address [address] [place] [address] Care Team Providers Care Hog Worker Name Role Phone Britt Villarreal PA-C Primary [...] nasal spray as needed. 12/31/19 24 Active ipratropium-albu terol (DUONEB) 0.5-2.5 mg/3 mL nebulizer solution 3 ML INHALED EVERY 6 HOURS NEEDED FOR WHEEZING 12/05/19 24 Active amLODIPine (NORVASC) 5 MG tabletIndication s:Occipital neuralgia of left side Take 1 tablet (5 mg total) by mouth daily. 30 tablet 01/09/20 24 Active Continuous Glucose Sensor (Dexcom G6 Sensor[place] [facility] [place] SENSOR EVERY 10 DAYS 06/25/20 24 Active Continuous Glucose Transmitter (Dexcom G6 Transmitter) [facility] [place] DEVICE BY DOES NOT APPLY ROUTE SEE ADMIN INSTRUCTIONS. CHANGE TRANSMITTER EVERY 3 MONTHS. 05/15/20 24 Active primidone (MYSOLINE) 50 MG tablet Take 1 tablet (50 mg total) by mouth nightly. 07/24/20 24 Active estradiol (ESTRACE) 0.01 % vaginal cream APPLY PEA-SIZED AMOUNT TO URETHRA DAILY X 1 MONTH THEN THREE DAYS A WEEK THEREAFTER 11/10/19 25 Active hydroCHLOROthiaz gasper (MICROZIDE) 12.5 MG capsule Take 1 capsule (12.5 mg total) by mouth every morning. 12/25/19 25 Active naltrexone (REVIA) 50 MG tablet Take 1 tablet (50 mg total) by mouth every morning. 12/24/19 25 Active PANTOprazole (PROTONIX) 40 MG EC tabletIndication s:Amos's esophagus without dysplasia Take 1 tablet (40 mg total) by mouth daily. 90 tablet 3 01/23/20 25 Active budesonide-formo terol (SYMBICORT) 160-4.5 MCG/ACT inhaler [...] mg total) by mouth daily. 30 tablet 03/19/20 25 Active lisinopril (PRINIVIL,ZeSTRI L) 10 MG tabletIndication s:Primary hypertension Take 1 tablet (10 mg total) by mouth nightly. 90 tablet 1 03/19/20 25 Active SUPPLY DME MISCIndications: Morbid obesity (HCC),Back pain, unspecified back location, unspecified back pain laterality, unspecified chronicity,Pain in left ankle and joints of left foot,Pain in both knees, unspecified chronicity,Ankle instability, unspecified laterality Walker with seat & breaks [facility] [address] [place] [address] 1 each 04/08/20 25 Active phenazopyridine (PYRIDIUM) 200 MG tabletIndication s:Urinary tract infection with hematuria, site unspecified Take 1 tablet (200 mg total) by mouth 3 (three) times a day in the morning, mid-day and early evening. 6 tablet 05/27/20 25 Active methocarbamol (ROBAXIN) 750 MG tabletIndication s:Back pain, unspecified back location, unspecified back pain laterality, unspecified chronicity Take 1 tablet (750 mg total) by mouth 4 (four) times a day as needed for muscle spasms. 40 tablet 06/05/20 25 Active methocarbamol (ROBAXIN) 750 MG tabletIndication s:Back pain, unspecified back location, unspecified back pain laterality, unspecified chronicity Take 1 tablet (750 mg total) by mouth 4 (four) times a day as needed for muscle spasms. 40 tablet 04/24/20 25 025 Discontinu ed(Reorder ) nitrofurantoin monohydrate (MACROBID) 100 MG capsuleIndicatio ns:Urinary tract infection with hematuria, site unspecified Take 1 capsule (100 mg total) by mouth 2 (two) times a day with meals. Dispense generic equivalent of MACROBID 14 capsule 05/27/20 25 025 Active Problems Problem Noted Date [...] Encounters Date Type Department Care Team Description 06/10/2025 8:00 AM EDT Telemedicine Clinical Support [facility] [address] [facility] 1st [place] [address] Meredith Waters NP Barrett, Christopher, RD Type 2 diabetes mellitus without complication, with long-term current use of insulin (HCC) (Primary Dx); Morbid obesity (HCC) 06/10/2025 Travel 06/09/2025 1:45 PM EDT [facility] [address] [address] Marc Reynolds MD Primary osteoarthritis of right knee (Primary Dx) 06/08/2025 Orders Only [address] [address] Primary Care, Scan 06/05/2025 Refill [facility] [address] [facility] [address] [place] [address] Jared Rousseau MD Back pain, unspecified back location, unspecified back pain laterality, unspecified chronicity 06/05/2025 Orders Only [address] [address] Primary Care, Scan 06/05/2025 Scanned Document [address] [address] Neurology, Scan 06/04/2025 8:15 AM EDT [facility] [address] [address] Jared Rousseau MD Back pain, unspecified back location, unspecified back pain laterality, unspecified chronicity (Primary Dx) 05/29/2025 12:30 PM EDT Treatment [facility] [address] [place] [address] Rubi Woo, PT Acute low back pain with bilateral sciatica, unspecified back pain laterality (Primary Dx) 05/27/2025 12:40 PM EDT Office Visit [facility] [place] [address] [place] [address] David Land MD Kelly, Martin J, RICHARDC Urinary tract infection with hematuria, site unspecified (Primary Dx); Urinary tract infection symptoms 05/27/2025 Travel 05/27/2025 Telephone [facility] [address] [place] [address] Britt Villarreal PA-C Blood Pressure Check 05/22/2025 1:00 PM EDT Treatment [facility] [address] [address] Rubi Woo, PT Acute low back pain with bilateral sciatica, unspecified back pain laterality (Primary Dx) 05/15/2025 12:30 PM EDT Treatment [facility] [address] [address] Rubi Woo, PT Acute low back pain with bilateral sciatica, unspecified back pain laterality (Primary Dx) 05/15/2025 Scanned Document [facility] [address] [place] [address] Cardiology, Scan 05/13/2025 7:30 AM EDT Treatment [facility] [address] [place] [address] Rubi Woo, PT Acute low back pain with bilateral sciatica, unspecified back pain laterality (Primary Dx) 05/08/2025 2:00 PM EDT Treatment [facility] [address] [place] [address] Rubi Woo, PT Acute low back pain with bilateral sciatica, unspecified back pain laterality (Primary Dx) 05/07/2025 8:00 AM EDT [facility] [address] [place] [address] Jared Rousseau MD Back pain, unspecified back location, unspecified back pain laterality, unspecified chronicity (Primary Dx) 05/07/2025 Scanned Document [facility] [address] [place] [address] Jared Rousseau MD 05/06/2025 8:00 AM EDT Telemedicine Clinical Support [facility] [address] [facility] 1st [place] [phone] Meredith Waters, Reji Salinas RD Type 2 diabetes mellitus without complication, with long-term current use of insulin (HCC) (Primary Dx); Morbid obesity (HCC) 05/06/2025 Telephone [facility] [address] [facility] [address] [place] [phone] Basia Brandt, ANNUAL GIVING MANAGER 05/06/2025 Travel 05/04/2025 Scanned Document [facility] [address] [place] [address] Nephrology, Scan 05/01/2025 1:00 PM EDT Treatment [facility] [address] [place] [address] Rubi Woo, PT Acute low back pain with bilateral sciatica, unspecified back pain laterality (Primary Dx) 04/24/2025 7:00 AM EDT Treatment [facility] [address] [address] Rubi Woo, PT Acute low back pain with bilateral sciatica, unspecified back pain laterality (Primary Dx) 04/24/2025 Refill [facility] [address] [place] [address] Jared Rousseau MD Back pain, unspecified back location, unspecified back pain laterality, unspecified chronicity 04/22/2025 11:30 AM EDT Treatment [facility] [address] [address] Rubi Woo, PT Acute low back pain with bilateral sciatica, unspecified back pain laterality (Primary Dx) 04/21/2025 3:40 PM EDT Ancillary Procedure [facility] [address] [place] [address] 04/21/2025 3:15 PM EDT Consult [facility] [address] [place] [address] Marc Reynolds MD Primary osteoarthritis of both knees (Primary Dx) 04/17/2025 11:30 AM EDT Treatment [facility] [address] [place] [address] Rubi Woo, PT Acute low back pain with bilateral sciatica, unspecified back pain laterality (Primary Dx) 04/08/2025 2:30 PM EDT Treatment [facility] [address] [place] [address] Rubi Woo, PT Acute low back pain with bilateral sciatica, unspecified back pain laterality (Primary Dx) 04/08/2025 Orders Only [facility] [address] [facility] [address] [place] [address] Eladio Becker MD Ankle instability, unspecified laterality (Primary Dx); Morbid obesity (HCC); Back pain, unspecified back location, unspecified back pain laterality, unspecified chronicity; Pain in left ankle and joints of left foot; Pain in both knees, unspecified chronicity 04/07/2025 Orders Only [facility] [address] [facility] [address] [place] [address] Britt Villarreal PA-C Elevated serum creatinine (Primary Dx) 04/07/2025 Scanned Document [facility] [place] [address] Nephrology, Scan 04/01/2025 7:00 AM EDT Telemedicine Clinical Support [facility] [address] [facility] 1st [place] [phone] Meredith Waters, Reji Salinas, RD Type 2 diabetes mellitus without complication, with long-term current use of insulin (HCC) (Primary Dx); Morbid obesity (HCC) 04/01/2025 Orders Only [facility] [address] [place] [address] Britt Villarreal PA-C 04/01/2025 Scanned Document [address] [place] [phone] Primary Care, Scan 04/01/2025 Travel 03/31/2025 8:30 AM EDT Evaluation [facility] [address] [place] [address] Jared Rousseau MD McEvitt, Meghan K, PT Acute low back pain with bilateral sciatica, unspecified back pain laterality (Primary Dx) 03/19/2025 8:05 AM EDT Ancillary Procedure [facility] [address] [address] Jared Rousseau MD 03/19/2025 8:00 AM EDT Consult [facility] [address] [address] Jared Rousseau MD Back pain, unspecified back location, unspecified back pain laterality, unspecified chronicity (Primary Dx) 03/19/2025 Orders Only [address] [phone] ProviderValarie MD 03/19/2025 Scanned Document [facility] [address] [place] [address] Pulmonary, Scan 03/19/[address] [place] [address] Britt Villarreal PA-C Primary hypertension (Primary Dx) 03/17/2025 4:15 PM EDT Telemedicine [facility] [address] [place] [phone] Stanley, Rebecca, ANNUAL GIVING MANAGER Morbid obesity (HCC) (Primary Dx) 03/17/2025 Travel 03/17/2025 Documentation [facility] [address] [facility] 2nd [place] [address] Rebecca Angel APRN 03/10/2025 3:00 PM EDT Office Visit [facility] [address] [place] [address] Eladio Becker MD Pain in left ankle and joints of left foot (Primary Dx) from Last 3 Months Social [...] EDT Inhaled Oxygen Concentration - - Weight 125 kg (276 lb) 06/10/2025 9:05 AM EDT Height 165.1 cm (5' 5 ) 05/27/2025 12:44 PM EDT Body Mass Index 45.93 05/27/2025 12:44 PM EDT Plan of Treatment Upcoming Encounters Date Type Department Care Team (Late st Contact Info) Description 06/12/2025 12:30 PM EDT Treatment [facility] [address] [address] Rubi Woo, PT 7 [place] [address] 06/18/2025 11:20 AM EDT Consult [facility] Medical [facility] [address] [place] [phone] Maria D Hinojosa APRN [address] [place] [address] 06/19/2025 8:15 AM EDT Consult [facility] [address] [phone] Jared Rousseau MD [address] [address] Milan Rodriguez, MARCOS [address] [facility] [address] [place] [address] 06/19/2025 12:30 PM EDT Treatment [facility] [address] [address] Rubi Woo, PT 7 [place] [address] 06/23/2025 1:15 PM EDT Telemedicine [facility] [address] [place] [phone] Rebecca Angel, ANNUAL GIVING MANAGER [address] [facility] [address] [place] [address] 06/26/2025 12:30 PM EDT Treatment [facility] [address] [place] [address] Rubi Woo, PT 7 [place] [address] 07/02/2025 4:15 PM EDT Office Visit [facility] [address] [facility] 101 [place] [phone] Mai Wisdom, ANNUAL GIVING MANAGER 100 [facility] 101 [place] [address] 07/13/2025 8:00 AM EDT Telemedicine Clinical Support [facility] [address] [place] [phone] Meredith Waters, MARY [address] [facility] [address] [address] Reji Amos, DILIP 32 [place] [address] 07/14/2025 8:15 AM EDT Office Visit [facility] [address] [place] [address] Marc Reynolds MD [address] [facility] [address] [place], [place] [phone] 07/20/2025 1:00 PM EDT Hospital Encounter [facility] at [address] [phone] Marc Reynolds MD [address] [facility] [address] [place] [address] 07/20/2025 1:00 PM EDT - 07/20/2025 3:30 PM EDT Surgery [facility] at [facility] [address] [place] [address] Marc Reynolds MD [address] [facility] [address] [place] [address] ARTHROPLASTY TOTAL KNEE 08/04/2025 10:30 AM EST Office Visit [facility] [address], [place] [address] Marc Reynolds MD [address] [facility] [address] [place], [place] [address] 09/03/2025 8:15 AM EST [facility] [address] [place] [address] Jared Rousseau MD [address] [address] 10/08/2025 8:00 AM EST Office Visit [facility] [address] [facility] 101 [place] [address] Britt Villarreal PA-C 100 [place] [address] Scheduled Procedures Name Priority Associated Diagnoses Date/Ti me ARTHROPLASTY TOTAL KNEE Primary osteoarthritis of right knee 07/20/2025 1:00 PM EDT Health Maintenance Due Date Last Done [...] Care Plan Autogenerated Problem No Danielle Duckworth Medical Devices Implanted Type Area Furnace Charging Machine Operator Device Identifier Shelf Expiration Date Model / Serial / Lot Nail/Dayron Nail/Dayron Foot Description:Charcot's and pl ate Procedures Procedure Name Priority Date/Time Associated Diagnosis Comments LAB RESULT Routine 06/05/2025 12:46 PM EDT LAB RESULT Routine 06/04/2025 11:41 AM EDT POCT URINALYSIS DIPSTICK, AUTOMATED Routine 05/27/2025 1:06 PM EDT Urinary tract infection symptoms URINE CULTURE Routine 05/27/2025 1:06 PM EDT Urinary tract infection symptoms MRI LUMBAR SPINE W/O CONTRAST Routine 05/26/2025 7:33 AM EDT Back pain, unspecified back location, unspecified back pain laterality, unspecified chronicity XR KNEE 4+ VIEWS-LEFT Routine 04/21/2025 3:56 PM EDT Primary osteoarthritis of both knees MA ARTHROCENTESIS ASPIR&/INJ MAJOR JT/BURSA W/O US Routine 04/21/2025 3:15 PM EDT Primary osteoarthritis of both knees MA ARTHROCENTESIS ASPIR&/INJ MAJOR JT/BURSA W/O US Routine [...] Recently Relevant to Health Maintenance Results * LAB RESULT (06/05/2025 12:46 PM EDT) Only the most recent of2 resultswithin the time period is included. us Scan Primary Care HX AMB PROCEDURES Edited Resul t - Final * (ABNORMAL) POCT Urinalysis Dipstick, Automated (05/27/2025 1:06 PM EDT) Source, UA Clean Catch Color, UA Douglas(A) Yellow & Clear, Yellow Comment:pt took azo [...] Esterase, UA Large (+++)(A) Negative Lot Number [id number] Telegraph Repeater Technician Pass Pass Urine 05/27/2025 1:06 PM EDT Sudarshan Kevin PA-C POINT OF CARE TEST ORDERABLE S Final Result * Urine Culture (05/27/2025 1:06 PM EDT) Culture SEE NOTE [facility] Comment: CULTURE, URINE, ROUTINE Micro Number: [id number] Test Status: Final Specimen Source: Urine Specimen Quality: Adequate Result: No Growth 05/27/2025 1:06 PM EDT 05/28/2025 10:45 PM EDT Sudarshan Kevin PA-C LAB AMB MICRO ORDERABLES Fin al Result [employer] [address] [place] [phone] * MRI Lumbar spine w/o contrast (05/26/2025 [...] roots within the lateral recesses and causes thcj-rc-wogeqhbx bilateral neural foraminal stenosis. 5. L3-L4 broad-based disc bulge with bilateral facet arthropathy and thickening of the ligamentum flavum which encroaches upon the traversing bilateral L4 nerve roots within the lateral recesses and causes iiam-vb-vrlpeipc right as well as moderate left neural foraminal stenosis. 6. L4-L5 shallow broad-based disc bulge with bilateral facet arthropathy causing mild left neural foraminal stenosis. Electronically signed by: Stephen Muhammad MD 05/28/2025 08:49 AM EDT Thank you for referring your patient to us, Stephen Muhammad MD [phone] (Electronically Signed - 05/28/2025 08:49) Copy: BRITT ESPINO [facility] [address] [address] PATIENT , Narrative 05/28/2025 8:49 AM [...] roots within the lateral recesses and causes pcmf-yq-ztmxuveb bilateral neural foraminal stenosis. L3-L4: Broad-based disc bulge with bilateral facet arthropathy and mild thickening of the ligamentum flavum which encroaches upon the traversing bilateral L4 nerve roots within the lateral recesses and causes eunj-ys-youaltpd right as well as moderate left neural [...] nerve roots within thelateral recesses and causes gtxh-jv-pvwwvgjy bilateral neural foraminalstenosis. L3-L4: Broad-based disc bulge with bilateral facet arthropathy and mildthickening of the ligamentum flavum which encroaches upon the traversingbilateral L4 nerve roots within the lateral recesses and qqhvrafpon-cq-iuugmndu right as well as moderate left neural [...] nerve roots within the lateralrecesses and causes vnmj-th-qezuauoi bilateral neural foraminalstenosis. 5. L3-L4 broad-based disc bulge with bilateral facet arthropathy andthickening of the ligamentum flavum which encroaches upon the traversingbilateral L4 nerve roots within the lateral recesses and atlpmxbwwa-lo-vcinsopi right as well as moderate left neural foraminal stenosis. 6. L4-L5 shallow broad-based disc bulge with bilateral facet arthropathycausing mild left neural foraminal stenosis. Electronically signed by: Stephen Muhammad MD 05/28/2025 08:49 AM EDT RPWorkstation: [id number] Thank you for referring your patient to us, Stephen Muhammad MD [phone] (Electronically Signed - 05/28/2025 08:49) Copy: BRITT ESPINO [facility] [address] [facility] [address] [place] [address] PATIENT , us Jared Rousseau MD G MRI ORDERABLES Final Result * XR Knee 4+ views-Left (04/21/2025 3:56 PM EDT) Narrative OA - 04/21/2025 3:56 PM EDT This exam was performed in office at [facility] and images reviewed by orthopedic provider. Any findings are documented within ambulatory encounter note on date of service. us Marc [facility] O RDERABLES Final Result OA * MA ARTHROCENTESIS ASPIR&/INJ MAJOR JT/BURSA W/O US (04/21/2025 3:15 PM EDT) Marc Lagos MD - 04/21/2025 3:15 PM EDT Marc [...] MD PROCEDURE/MINOR SURGICAL ORDERABLES Final Result * MA ARTHROCENTESIS ASPIR&/INJ MAJOR JT/BURSA W/O US (04/21/2025 3:15 PM EDT) Marc Lagos MD - 04/21/2025 3:15 PM EDT Marc [...] and draped in the usual sterile fashion. Marc Reynolds MD PROCEDURE/MINOR SURGICAL ORDERABLES Final Result * (ABNORMAL) Basic metabolic panel (04/01/2025 11:46 AM EDT) Glucose 399(H) 65 - 99 mg/dL [facility] Comment: Verified by repeat analysis. Fasting reference interval For someone without known diabetes, a glucose value >125 mg/dL indicates that they may have diabetes and this should be confirmed with a follow-up test. Blood Urea Nitrogen (BUN) 39(H) 7 - 25 mg/dL [facility] Creatinine 2.59(H) 0.50 - 1.03 mg/dL [facility] Creatinine w/ eGFR 21(L) > OR = 60 mL/min/1.7 3m2 [facility] BUN/Creatinine Ratio 15 6 - 22 (calc) [facility] Sodium 128(L) 135 - 146 mmol/L [facility] Potassium 5.1 3.5 - 5.3 mmol/L [facility] Chloride 90(L) 98 - 110 mmol/L [facility] CO2 29 20 - 32 mmol/L [facility] Calcium 9.6 8.6 - 10.4 mg/dL [facility] Blood Blood specimen / Unknown 04/01/2025 11:46 AM EDT 04/01/2025 11:46 AM EDT Britt Villarreal PA-C LAB BLOOD ORDERABLE S Final Result [employer] [address] [place] [address] * Creatinine with eGFR (04/01/2025) Creatinine 2.59 mg/dL eGFR 21.0 Comment:lab, scan Blood Blood specimen / Unknown 04/01/2025 us Scan Lab LAB BLOOD ORDERABLES Final Resul t * Physician Order (03/19/2025 1:59 PM EDT) us External Provider HX AMB PROCEDURES Final Res ult * XR Lumbar spine complete 4+ views (03/19/2025 8:19 AM EDT) Narrative [facility] - 03/19/2025 8:19 AM EDT This exam was performed in office at [facility] and images reviewed by orthopedic provider. Any findings are documented within ambulatory encounter note on date of service. Jared Rousseau MD IMG DIAGNOSTIC IMAGING ORDERABLE S Final Result [facility] * (ABNORMAL) Lipid panel with nonHDL (01/29/2025 1:22 PM EDT) Cholesterol, Total 124 <200 mg/dL [facility] Cholesterol, HDL 47(L) > OR = 50 mg/dL [facility] Triglycerides 153(H) <150 mg/dL [facility] LDL Cholesterol 53 mg/dL (calc) [facility] Comment: Reference range: <100 Desirable range <100 mg/dL for primary prevention; <70 mg/dL for patients with CHD or diabetic patients with > or = 2 CHD risk factors. LDL-C is now calculated using the Sudarshan-Maryan calculation, which is a validated novel method providing better accuracy than the Friedewald equation in the estimation of LDL-C. Sudarshan DOMINGUEZ et al. BRITTNEE. 2013;310(19): 1506-7543 (http://education.ZolkC.[employer]/faq/HPO794) Cholesterol/HDL Ratio 2.6 <5.0 (calc) [facility] Non HDL Chol. (LDL+VLDL) 77 <130 mg/dL (calc) [facility] Comment: For patients with diabetes plus 1 major ASCVD risk factor, treating to a non-HDL-C goal of <100 mg/dL (LDL-C of <70 mg/dL) is considered a therapeutic option. Blood Blood specimen / Unknown 01/29/2025 1:22 PM EDT 01/29/2025 1:25 PM EDT Narrative [facility] - 01/30/2025 10:28 AM EDT FASTING:YES FASTING: YES us Birtt Villarreal PA-C LAB BLOOD ORDERABLE S Final Result Performing Organization Address City/[facility] Co de Phone Number [employer] [address] [place] [phone] * (ABNORMAL) Hemoglobin A1c with Estimated Average Glucose (01/07/2024 4:32 AM EDT) Hemoglobin A1C 7.3(H) <5.7 % 01/07/2024 5:20 AM EDT [facility] Comment: A1c% Interpretation 5.7 - 6.0 Increase risk of diabetes 6.1 - 6.4 Higher risk of diabetes > or = 6.5 Consistent with diabetes Diabetes Care, 33(Supp 1):S1-S61, 2010 Estimated Average Glucose 163 mg/dL 01/07/2024 5:20 AM EDT [facility] Blood specimen (specimen) Blood specimen / Unknown 01/07/2024 4:32 AM EDT 01/07/2024 4:37 AM EDT us Nas Garcia MD LAB BLOOD ORDERABLES Final Resul t Performing Organization Address [facility] Co de Phone Number [address] [address], [address] [address] from Last 3 Months or Most Recently Relevant to Health Maintenance Additional Health Concerns Active Problems Noted Date Diagnosed Date Autogenerated Problem 06/09/2025 Insurance [facility] OUT STATE - PPO BLUE CROSS OUT OF [facility] BLUE CROSS OUT OF [facility] BLUE CROSS OUT OF [facility] Advance Directives * Full Code (Latest Code Status on File) Date Activated Date Inactivated Comments 01/06/2024 5:40 PM 02/27/2025 8:16 AM Question Answer Comments Decision Thoroughly Discussed with: Patient * Full Code Date Activated Date Inactivated Comments 08/30/2023 12:10 PM 01/06/2024 2:18 PM Full Code Care Teams Hog Worker Relationship Specialty Start Date End Date Britt Villarreal PA-C [address] [place] [address] PCP - General Internal Medicine 11/03/24
--- OUTSIDE RECORDS SUMMARY | 2025-06-10 18:41 | XMS_ITS | Encounter Summary ---
Author Organization [facility] Address 100 [place] [address] Care Team Providers Care Commonwealth Attorney Name Role Phone Ranjana Villarreal PA-C Primary Care Provi erika Encounter Details Date Type Department Care Team (Late st Contact Info) Description 05/04/2025 Scanned Document [facility] 1290 [place] [address] Nephrology, Scan Social History Tobacco Use Types [...] 06/12/2025 12:30 PM EDT [facility] [address] [address] Rubi Woo, PT 7 [place] [address] 06/18/2025 11:20 AM EDT Consult [facility] [address] [place] [phone] Maria D Hinojosa APRN [address] [place] [address] 06/19/2025 8:15 AM EDT [facility] of [address] 100 [place] [address] Jared Rousseau MD 31 [facility] 100 [place] [address] Milan Rodriguez APRN 499 [facility] [address] 300 [place] [address] 06/19/2025 12:30 PM EDT [facility] of [address] [address] Rubi Woo, PT 7 [place] [address] 06/23/2025 1:15 PM EDT Telemedicine [facility] [place] [address] [place] [address] 2nd [place] [address] Rebecca Angel APRN 31 [facility] [address] [place] [address] 06/26/2025 12:30 PM EDT [facility] of [address] [place] [address] Rubi Woo, PT 7 [place] [address] 07/02/2025 4:15 PM EDT Office Visit [facility] [address] [place] [phone] Mai Wisdom APRN [address] [facility] 101 [place] [address] 07/13/2025 8:00 AM EDT Telemedicine Clinical Support [facility] [place] [facility] Services [address] [place] [phone] Meredith Waters NP 31 [facility] [address] [address] Reji Amos, DILIP 32 [place] [address] 07/14/2025 8:15 AM EDT [facility] [address] 303 [place] [address] Marc Reynolds MD [address] [address] 07/20/2025 1:00 PM EDT Hospital Encounter [facility] [place] at [address] [phone] Marc Reynolds MD 499 [facility] [address] 300 [place] [address] 07/20/2025 1:00 PM EDT - 07/20/2025 3:30 PM EDT Surgery [facility] [place] at [facility] 32 [place] [address] Marc Reynolds MD 499 [facility] [address] [place] [address] ARTHROPLASTY TOTAL KNEE 08/04/2025 10:30 AM EST [facility] 25[place], [place] [address] Marc Reynolds MD 499 [facility] [address] [place], [place] [address] 09/03/2025 8:15 AM EST Office [facility] 7 [facility] [address] [place] [address] Jared Rousseau MD [address] [address] 10/08/2025 8:00 AM EST Office Visit [facility] 100 [facility] [address] [place] [address] Ranjana Villarreal PA-C 100 [place] [address] Scheduled Procedures Name Priority Associated Diagnoses Date/Ti [...] on filedocumented in this encounter Care Teams Commonwealth Attorney Relationship Specialty Start Date End Date Ranjana Villarreal PA-C [address] [place] [address] PCP - General Internal Medicine 11/03/24 documented as of this encounter
--- OUTSIDE RECORDS SUMMARY | 2025-06-10 18:41 | XMS_ITS | Encounter Summary ---
Author Organization [facility] Address [address] [place] [address] Care Team Providers Care Certified Alcohol And Drug Counselor Name Role Phone Ranjana Villarreal PA-C Primary Care Provi erika Encounter Details Date Type Department Care Team (Late st Contact Info) Description 11/20/2024 Scanned Document [address] [place] [address] Primary Care, Scan Social History [...] 06/12/2025 12:30 PM EDT [facility] [address] [address] Rubi Woo, PT 7 [place] [address] 06/18/2025 11:20 AM EDT Consult [facility] [address] [place] [phone] Maria D Hinojosa, MARCOS [address] [place] [address] 06/19/2025 8:15 AM EDT [facility] [address] 100 [place] [address] Jared Rousseau MD 31 [facility] 100 [place] [address] Milan Rodriguez APRN 499 [facility] 300 [place] [address] 06/19/2025 12:30 PM EDT [facility] of [address] [address] Rubi Woo, PT 7 [place] [address] 06/23/2025 1:15 PM EDT Telemedicine [facility] [place] [address] [place] [address] 2nd [place] [address] Rebecca Angel APRN 31 [facility] [address] [address] 06/26/2025 12:30 PM EDT [facility] [address] [place] [address] Rubi Woo, PT 7 [place] [address] 07/02/2025 4:15 PM EDT Office Visit [facility] [address] [place] [phone] Mai Wisdom APRN [address] [facility] [facility] 101 [place] [address] 07/13/2025 8:00 AM EDT Telemedicine Clinical Support [facility] and [facility] [place] [facility] [address] [place] [phone] Meredith Waters NP 31 [facility] [address] [address] Reji Amos, DILIP 32 [place] [address] 07/14/2025 8:15 AM EDT Office [facility] [address] 303 [place] [address] Marc Reynolds MD [address] [address] 07/20/2025 1:00 PM EDT Hospital Encounter [facility] [place] at [address] [phone] Marc Reynolds MD [address] [address] 07/20/2025 1:00 PM EDT - 07/20/2025 3:30 PM EDT Surgery [facility] [place] at 32 [place] [address] Marc Reynolds MD 499 [facility] [address] [place], [place] [address] ARTHROPLASTY TOTAL KNEE 08/04/2025 10:30 AM EST [facility] [address], [place] [address] Marc Reynolds MD 499 [facility] [address] [place], [place] [address] 09/03/2025 8:15 AM EST Office [facility] 7 [facility] [address] [place] [address] Jared Rousseau MD [address] [place] [address] 10/08/2025 8:00 AM EST Office Visit [facility] 100 [facility] [address] [place] [address] Ranjana Villarreal PA-C 100 [place] [address] Scheduled Procedures Name Priority Associated Diagnoses Date/Ti me ARTHROPLASTY TOTAL KNEE Primary osteoarthritis of right knee 07/20/2025 1:00 PM EDT documented as of this encounter Visit Diagnoses Not on filedocumented in this encounter Care Teams Certified Alcohol And Drug Counselor Relationship Specialty Start Date End Date Ranjana Villarreal PA-C 100 [place] [address] PCP - General Internal Medicine 11/03/24 documented as of this encounter
--- OUTSIDE RECORDS SUMMARY | 2025-06-10 18:41 | XMS_ITS | Encounter Summary ---
Author Organization [facility] Address [address] [place] [address] Care Team Providers Care Lawn Mower Sharpener Name Role Phone Ranjana Villarreal PA-C Primary Care Provi erika Encounter Details Date Type Department Care Team (Late st Contact Info) Description 12/09/2024 Scanned Document [facility] PULMONOLGY SCAN Pulmonary, Scan Social History [...] 06/12/2025 12:30 PM EDT [facility] [address] [address] Rubi Woo, PT 7 [place] [address] 06/18/2025 11:20 AM EDT Consult [facility] [address] [place] [phone] Maria D Hinojosa APRN [address] [place] [address] 06/19/2025 8:15 AM EDT [facility] of [address] 100 [place] [address] Jared Rousseau MD 31 [facility] 100 [place] [address] Milan Rodriguez APRN 499 [facility] 300 [place] [address] 06/19/2025 12:30 PM EDT [facility] of [address] [address] Rubi Woo, PT 7 [place] [address] 06/23/2025 1:[address] [facility] [place] [address] [place] [address] 2nd [place] [phone] Rebecca Angel APRN 31 [facility] 204[place], [place] [address] 06/26/2025 12:30 PM EDT [facility] [address] [address] Rubi Woo, PT 7 [place] [address] 07/02/2025 4:15 PM EDT Office Visit [facility] [place] [address] [place] [address] Mai Wisdom, BINDERY MACHINE FEEDER OFFBEARER 100 [facility] 101 [place] [address] 07/13/2025 8:00 AM EDT Telemedicine Clinical Support [facility] [place] [facility] [address] [place] [phone] Meredith Waters, MARY 31 [facility] [address] [address] Reji Amos, DILIP 32 [place] [address] 07/14/2025 8:15 AM EDT Office [facility] 7 [facility] 303 [place] [address] Marc Reynolds MD [address] [address] 07/20/2025 1:00 PM EDT Hospital Encounter [facility] [place] at [address] [phone] Marc Reynolds MD [address] 8[address] 07/20/2025 1:00 PM EDT - 07/20/2025 3:30 PM EDT Surgery [facility] [place] at [address] [phone] Marc Reynolds MD 499 [address] [place] [address] ARTHROPLASTY TOTAL KNEE 08/04/2025 10:30 AM EST Office [facility] [address], [place] [address] Marc Reynolds MD 499 [address] [place] [address] 09/03/2025 8:15 AM EST [facility] [address] [place] [address] Jared Rousseau MD 31 [facility] 100 [place] [address] 10/08/2025 8:00 AM EST Office Visit [facility] [place] 100 [facility] [address] [place] [address] Ranjana Villarreal PA-C 100 [place] [address] Scheduled Procedures Name Priority Associated Diagnoses Date/Ti me ARTHROPLASTY TOTAL KNEE Primary osteoarthritis of right knee 07/20/2025 1:00 PM EDT documented as of this encounter Visit Diagnoses Not on filedocumented in this encounter Care Teams Lawn Mower Sharpener Relationship Specialty Start Date End Date Ranjana Villarreal PA-C 100 [place] [address] PCP - General Internal Medicine 11/03/24 documented as of this encounter
--- OUTSIDE RECORDS SUMMARY | 2025-06-10 18:41 | XMS_ITS | Encounter Summary ---
Author Organization [facility] Address 100 [place] [address] Care Team Providers Care Asbestos Pipe Supervisor Name Role Phone Ranjana Villarreal PA-C Primary Care Provi erika Encounter Details Date Type Department Care Team (Late st Contact Info) Description 04/07/2025 Scanned Document [facility] 1290 [place] [address] Nephrology, Scan Social History Tobacco Use Types [...] 06/12/2025 12:30 PM EDT [facility] [address] [address] Rubi Woo, PT 7 [place] [address] 06/18/2025 11:20 AM EDT Consult [facility] [address] [place] [phone] Maria D Hinojosa APRN [address] [place] [address] 06/19/2025 8:15 AM EDT [facility] of [address] 100 [place] [address] Jared Rousseau MD 31 [facility] 100 [place] [address] Milan Rodriguez APRN 499 [facility] 300 [place] [address] 06/19/2025 12:30 PM EDT [facility] of [address] [address] Rubi Woo, PT 7 [place] [address] 06/23/2025 1:15 PM EDT Telemedicine [facility] and Joint [employer] [address] [place] [address] 2nd [place] [address] Rebecca Angel APRN 31 [facility] 204[address] [place] [address] 06/26/2025 12:30 PM EDT [facility] of [address] [place] [address] Rubi Woo, PT 7 [place] [address] 07/02/2025 4:15 PM EDT Office Visit [facility] [address] [place] [phone] Mai Wisdom APRN [address] [facility] 101 [place] [address] 07/13/2025 8:00 AM EDT Telemedicine Clinical Support [facility] [employer] [place] [facility] Services [address] [place] [phone] Meredith Waters NP 31 [facility] [address] [address] Reji Amos, DILIP 32 [place] [address] 07/14/2025 8:15 AM EDT Office [facility] [address] [place] [address] Marc Reynolds MD [address] [address]27[address] 07/20/2025 1:00 PM EDT Hospital Encounter [facility] [employer] at [address] [phone] Marc Reynolds MD 499 [facility] 300 [place] [address] 07/20/2025 1:00 PM EDT - 07/20/2025 3:30 PM EDT Surgery [facility] [employer] [facility] 32 [place] [address] Marc Reynolds MD 499 [facility] [address] [place] [address] ARTHROPLASTY TOTAL KNEE 08/04/2025 10:30 AM EST Office [facility] 25[place] [address] Marc Reynolds MD 499 [facility] [address] [place], [place] [address] 09/03/2025 8:15 AM EST Office [facility] 7 [facility] [address] [place] [address] Jared Rousseau MD [address] [address] 10/08/2025 8:00 AM EST Office Visit [facility] 100 [facility] [address] [place] [address] Ranjana Villarreal PA-C 100 [place] [address] Scheduled Procedures Name Priority Associated Diagnoses Date/Ti [...] on filedocumented in this encounter Care Teams Asbestos Pipe Supervisor Relationship Specialty Start Date End Date Ranjana Villarreal PA-C [address] [place] [address] PCP - General Internal Medicine 11/03/24 documented as of this encounter
--- OUTSIDE RECORDS SUMMARY | 2025-06-10 18:41 | XMS_ITS | Clinical Summary ---
Author Organization [facility] Address 114 [place] [address] Care Team Providers Care Curing Room Supervisor Name Role Phone Unavailable Primary Care Provider [...] Personal/Family Self 1965 A [address] [place] [address]
--- OUTSIDE RECORDS SUMMARY | 2025-06-10 18:41 | XMS_ITS | Encounter Summary ---
Author Organization [facility] Address 100 [place] [address] Care Team Providers Care Automotive Service Consultant Name Role Phone Ranjana Villarreal PA-C Primary Care Provi erika Encounter Details Date Type Department Care Team (Late st Contact Info) Description 06/05/2025 Scanned Document Formerly named [facility] 1290 [place] [address] Neurology, Scan Social History Tobacco Use Types Packs/Day [...] 06/12/2025 12:30 PM EDT [facility] [address] [address] Ruib Woo, PT 7 [place] [address] 06/18/2025 11:20 AM EDT Consult [facility] [address] [place] [phone] Maria D Hinojosa, MANAGER BUILDING [address] [place] [address] 06/19/2025 8:15 AM EDT [facility] [address] 100 [place] [address] Jared Rousseau MD 31 [facility] 100 [place] [address] Milan Rodriguez APRN 499 [facility] 300 [place] [address] 06/19/2025 12:30 PM EDT [facility] of [address] [address] Rubi Woo, PT 7 [place] [address] 06/23/2025 1:15 PM EDT Telemedicine [facility] [place] [address] [place] [address] 2nd [place] [address] Rebecca Angel APRN 31 [facility] 204[place] [address] 06/26/2025 12:30 PM EDT [facility] of [address] 304 [place] [address] Rubi Woo, PT 7 [place] [address] 07/02/2025 4:15 PM EDT Office Visit [facility] [address] [facility] 101 [place] [phone] Mai Wisdom, MARCOS 100 [facility] 101 [place] [address] 07/13/2025 8:00 AM EDT Telemedicine Clinical Support [facility] [place] [facility] Services [address] [place] [address] 1st [place] [phone] Meredith Waters NP 31 [facility] [address] [address] Reji Amos, DILIP 32 [place] [address] 07/14/2025 8:15 AM EDT [facility] [address] 303 [place] [address] Marc Reynolds MD [address] [address] 07/20/2025 1:00 PM EDT Hospital Encounter [facility] [place] at [address] [phone] Marc Reynolds MD 499 [facility] 300 [place] [address] 07/20/2025 1:00 PM EDT - 07/20/2025 3:30 PM EDT Surgery [facility] [place] at [facility] 32 [place] [address] Marc Reynolds MD 499 [facility] [address] [place] [address] ARTHROPLASTY TOTAL KNEE 08/04/2025 10:30 AM EST [facility] [address] [address] Marc Reynolds MD 499 [facility] [address] [place], [place] [address] 09/03/2025 8:15 AM EST [facility] [address] [place] [address] Jared Rousseau MD [address] [place] [address] 10/08/2025 8:00 AM EST Office Visit [facility] 100 [facility] [address] [place] [address] Ranjana Villarreal PA-C 100 [place] [address] Scheduled Procedures Name Priority Associated Diagnoses Date/Ti [...] filedocumented in this encounter Care Teams Automotive Service Consultant Relationship Specialty Start Date End Date Ranjana Villarreal PA-C [address] [place] [address] PCP - General Internal Medicine 11/03/24 documented as of this encounter
--- OUTSIDE RECORDS SUMMARY | 2025-06-10 18:41 | XMS_ITS | Clinical Summary ---
Author Organization [facility] Address [address] [place] [address] Phone Care Team Providers Care Game Programmer Name Role Phone Joel Alegria NP Primary Care Provider [phone] Immunizations Name Administration Dates Next Due Moderna SARS-CoV-2 COVID-19, mRNA, LNP-S, preservative free 12/29/2020,12/01/2020 Surgical History Surgery Date Site/Laterality Comments CHOLECYSTECTOMY 2000 PROCEDURE: HISTORICAL CHOLECYSTECTOMY ENDOMETRIAL ABLATION PROCEDURE: AK ENDOMETRIAL ABLTJ THERMAL W/O HYSTEROSCOPIC GUID; COMMENT: done twice OTHER SURGICAL HISTORY PROCEDURE: ---- OTHER ----; COMMENT: skin graft for diabetic ulcer SECTION 03/1997 PROCEDURE: HISTORICAL DELIVERY COLONOSCOPY 06/18/2009 PROCEDURE: HISTORICAL COLONOSCOPY; COMMENT: Normal to cecum, repeat 10 years (small grade 2 internal hemorrhoids) UPPER GASTROINTESTINAL ENDOSCOPY 11/26/2001 PROCEDURE: UPPER GI ENDOSCOPY/EXAM; COMMENT: Normal, iron deficiency anemia most likely r/t a commodities manager source. OTHER SURGICAL HISTORY 2004 PROCEDURE: HISTORICAL [...] ED evaluation 06/29/18, referred to Dr. Ewing, [facility] wound care Managed with IV abx via PICC line through ID, eval with Dr. Harris for skin graft 08/2018 Anxiety 09/17/2018 DX:Anxiety; COMM ENT: Panic attacks Diabetic neuropathy ([facility] V24, [facility] V28) 09/26/2018 DX:Diabetic neuropathy ([facility]) Umbilical hernia 09/26/2018 DX:Umbilical he rnia Type 2 diabetes mellitus wit h neurological manifestations ([facility] V24, [facility] V28) 09/26/2018 DX:Type 2 diabetes mellitus with neurological manifestations ([facility]); COMMENT: Endo consult with Dr. Garces Type 2 diabetes mellitus wit h renal manifestations ([facility] V24, [facility] V28) 01/15/2019 DX:Type 2 diabetes mellitus with renal manifestations ([facility]) Chronic gastric ulcer DX:Chronic gastric ulcer Depression DX:Depression ALIYAH on CPAP 01/15/2019 DX:ALIYAH on CPAP GERD (gastroesophageal reflux disease) 01/15/2019 DX:GERD (gastroesophageal reflux disease) Type 2 diabetes mellitus wit h vascular disease ([facility] V24, [facility] V28) 10/14/2012 DX:Type 2 diabetes mellitus with vascular disease ([facility]) IBS (irritable bowel syndrome) 01/15/2019 D X:IBS (irritable bowel syndrome) Carpal tunnel syndrome of left wrist 01/15/2019 DX:Carpal tunnel syndrome of left wrist Amos's esophagus 03/23/2022 DX:Amos's esophagus [place] grade A esophagitis 03/23/2022 DX:[place] grade A esophagitis Diabetes mellitus ([facility] V 24, [facility] V28) DX:Diabetes mellitus ([facility]) Hypertension DX:Hypertension Hypercholesterolemia DX:Hypercho lesterolemia Anxiety DX:Anxiety GERD (gastroesophageal reflux disease) DX:GERD (gastroesophageal reflux disease) Family History Medical History Relation Name Comments Other: Graves Disease Brother Heart failure Maternal Grandfather Stroke Other cancer Maternal Grandmother Liver Breast cancer Mother Heart failure Paternal Grandfather [place], Hy pertension Other cancer Paternal Grandmother Kidney [...] Signed Date: 08/05/2024 08:54 ET Workstation ID: [id number] Transcribed By: Self Edit Transcribed Date: 08/05/2024 08:44 ET Narrative 08/05/2024 8:54 AM EST EXAM: SCREENING MAMMOGRAPHY, BILATERAL HISTORY: SCREENING. Mother diagnosed with breast cancer age 56. COMPARISON: 03/09/2023, 12/20/2021, 09/10/2020 TECHNIQUE: Synthesized CC and MLO projections of each breast. Tomosynthesis of each breast in the CC and MLO projections. ADDITIONAL IMAGING: None Computer-aided detection was employed with the [employer] 3-D. TISSUE DENSITY: There are scattered [...] None Computer-aided detection was employed with the [employer] 3-D. TISSUE DENSITY: There are scattered [...] Signed Date: 08/05/2024 08:54 ET Workstation ID: [id number] Transcribed By: Self Edit Transcribed Date: 08/05/2024 08:44 ET us Self Referral Sppl IMG BI PROCEDURES Final Resul t from Last 3 Months or Most Recently Relevant to Health Maintenance [place] [address] [place] [address] ([facility]) Care Teams Game Programmer Relationship Specialty Start Date End Date Joel Alegria NP [address] [place], [place] PCP - General Family Medicine 08/01/24
--- OUTSIDE RECORDS SUMMARY | 2025-06-10 18:41 | XMS_ITS | Encounter Summary ---
Author Organization [facility] Address [address] [place] [address] Care Team Providers Care Director Part Name Role Phone Ranjana Villarreal PA-C Primary Care Provi erika Encounter Details Date Type Department Care Team (Late st Contact Info) Description 04/01/2025 Scanned Document [address] [place] [address] Primary Care, Scan Social History [...] 06/12/2025 12:30 PM EDT [facility] [address] [address] Rubi Woo, PT 7 [place] [address] 06/18/2025 11:20 AM EDT Consult [facility] [address] [place] [phone] Maria D Hinojosa, BELL TIER [address] [place] [address] 06/19/2025 8:15 AM EDT Consult [facility] [address] 100 [place] [address] Jared Rousseau MD 31 [facility] 100 [place] [address] Milan Rodriguez APRN [address] [place] [address] 300 [place] [address] 06/19/2025 12:30 PM EDT [facility] of [address] [address] Rubi Woo, PT 7 [place] [address] 06/23/2025 1:15 PM EDT Telemedicine [facility] [place] [address] [place] [address] 2nd [place] [address] Rebecca Angel APRN 31 [facility] [address] [place] [address] 06/26/2025 12:30 PM EDT [facility] of [address] [place] [address] Rubi Woo, PT 7 [place] [address] 07/02/2025 4:15 PM EDT Office Visit [facility] [address] [place] [phone] Mai Wisdom, MARCOS 100 [facility] 101 [place] [address] 07/13/2025 8:00 AM EDT Telemedicine Clinical Support [facility] [place] Nutrition Services [address] [place] [address] 1st [place] [phone] Meredith Waters, MARY 31 [facility] [address] [address] Reji Amos, DILIP 32 [place] [address] 07/14/2025 8:15 AM EDT Office [facility] [address] 303 [place] [address] Marc Reynolds MD [address] [phone] 07/20/2025 1:00 PM EDT Hospital Encounter [facility] [place] at [address] [phone] Marc Reynolds MD 499 [facility] 300 [place] [address] 07/20/2025 1:00 PM EDT - 07/20/2025 3:30 PM EDT Surgery [facility] [place] at [facility] 32 [place] [address] Marc Reynolds MD 499 [facility] [address] [place] [address] ARTHROPLASTY TOTAL KNEE 08/04/2025 10:30 AM EST [facility] [address] [address] Marc Reynolds MD 499 [facility] [address] [place], [place] [address] 09/03/2025 8:15 AM EST [facility] [address] [place] [address] Jared Rousseau MD [address] [address] 10/08/2025 8:00 AM EST Office Visit [facility] 100 [facility] [address] [place] [address] Ranjana Villarreal PA-C 100 [place] [address] Scheduled Procedures Name Priority Associated Diagnoses Date/Ti [...] on filedocumented in this encounter Care Teams Director Part Relationship Specialty Start Date End Date Ranjana Villarreal PA-C [address] [place] [address] PCP - General Internal Medicine 11/03/24 documented as of this encounter
--- OUTSIDE RECORDS SUMMARY | 2025-06-10 18:41 | XMS_ITS | Encounter Summary ---
Author Organization [facility] Address [address] [place] [address] Care Team Providers Care Dehydrogenation Converter Helper Name Role Phone Ranjana Villarreal PA-C Primary Care Provi erika Encounter Details Date Type Department Care Team (Late st Contact Info) Description 12/25/2024 Scanned Document [facility] NEPHROLOGY SCAN Nephrology, Scan Social History [...] 06/12/2025 12:30 PM EDT [facility] [address] [address] Rubi Woo, PT 7 [place] [address] 06/18/2025 11:20 AM EDT Consult [facility] Medical [facility] [address] [place] [phone] Maria D Hinojosa, STITCH BONDING MACHINE DRAWER [place] [address] [place] [address] 06/19/2025 8:15 AM EDT Consult [facility] [address] 100 [place] [address] Jared Rousseau MD 31 [facility] 100 [place] [address] Milan Rodriguez APRN 499 [facility] 300 [place] [address] 06/19/2025 12:30 PM EDT [facility] of [address] [address] Rubi Woo, PT 7 [place] [address] 06/23/2025 1:15 PM EDT Telemedicine [facility] [address] [place] [address] 2nd [place] [phone] Rebecca Angel APRN 31 [facility] [address] [address] 06/26/2025 12:30 PM EDT [facility] [address] [address] Rubi Woo, PT 7 [place] [address] 07/02/2025 4:15 PM EDT Office Visit [facility] [address] [place] [address] Mai Wisdom, STITCH BONDING MACHINE DRAWER [place] [address] 101 [place] [address] 07/13/2025 8:00 AM EDT Telemedicine Clinical Support [facility] Nutrition Services [address] [place] [phone] Meredith Waters NP 31 [facility] [address] [address] Reji Amos, DILIP 32 [place] [address] 07/14/2025 8:15 AM EDT Office Visit [facility] [address] [address] Marc Reynolds MD [address] 4512[address] 07/20/2025 1:00 PM EDT Hospital Encounter [facility] at [address] [phone] Marc Reynolds MD [address] 519[address] 07/20/2025 1:00 PM EDT - 07/20/2025 3:30 PM EDT Surgery [facility] at [address] [phone] Marc Reynolds MD 499 [facility] [address] [place] [address] ARTHROPLASTY TOTAL KNEE 08/04/2025 10:30 AM EST [facility] [address], [place] [address] Marc Reynolds MD 499 [facility] [address] [place] [address] 09/03/2025 8:15 AM EST [facility] [address] [place] [address] Jared Rousseau MD 31 [facility] 100 [place] [address] 10/08/2025 8:00 AM EST Office Visit [facility] 100 [facility] [address] [place] [address] Ranjana Villarreal PA-C 100 [place] [address] Scheduled Procedures Name Priority Associated Diagnoses Date/Ti me ARTHROPLASTY TOTAL KNEE Primary osteoarthritis of right knee 07/20/2025 1:00 PM EDT documented as of this encounter Visit Diagnoses Not on filedocumented in this encounter Care Teams Dehydrogenation Converter Helper Relationship Specialty Start Date End Date Ranjana Villarreal PA-C 100 [place] [address] PCP - General Internal Medicine 11/03/24 documented as of this encounter
--- OUTSIDE RECORDS SUMMARY | 2025-06-10 18:41 | XMS_ITS | Encounter Summary ---
Author Organization [facility] Address [address] [place] [address] Care Team Providers Care Slotter Operator Helper Name Role Phone Ranjana Villarreal PA-C Primary Care Provi erika Encounter Details Date Type Department Care Team ([facility] st Contact Info) Description 05/07/2025 Scanned Document [facility] [address] [phone] Jared Rousseau MD [address] [place] [address] Social History Tobacco Use Types Packs/Day Years [...] 06/12/2025 12:30 PM EDT [facility] [address] [address] Rubi Woo, PT 7 [place] [address] 06/18/2025 11:20 AM EDT Consult [address] [phone] Maria D Hinojosa APRN [address] [place] [address] 06/19/2025 8:15 AM EDT [facility] [address] 100 [place] [phone] Jared Rousseau MD [address] [address] Milan Rodriguez, MARCOS [address] [place] [address] 300 [place] [address] 06/19/2025 12:30 PM EDT [facility] of [address] [address] Rubi Woo, PT 7 [place] [address] 06/23/2025 1:15 PM EDT Telemedicine [facility] [place] [address] [place] [address] 2nd [place] [address] Rebecca Angel, MOBILE PRACTICE LEAD [address] [address] 06/26/2025 12:30 PM EDT [facility] of [address] 304 [place] [address] Rubi Woo, PT 7 [place] [address] 07/02/2025 4:15 PM EDT Office Visit [facility] [address] [place] [phone] Mai Wisdom, MOBILE PRACTICE LEAD [address] [facility] 101 [place] [address] 07/13/2025 8:00 AM EDT Telemedicine Clinical Support [facility] [place] Nutrition Services [address] [place] [phone] Meredith Waters, MARY 31 [facility] [address] [address] Reji Amos, DILIP 32 [place] [address] 07/14/2025 8:15 AM EDT Office [facility] [address] 303 [place] [address] Marc Reynolds MD [address] 1099[address] 07/20/2025 1:00 PM EDT Hospital Encounter [facility] [place] at [address] [phone] Marc Reynolds MD 499 [facility] [address] [place] [address] 07/20/2025 1:00 PM EDT - 07/20/2025 3:30 PM EDT Surgery [facility] [place] at [address] [address] Marc Reynolds MD 499 [facility] [address] [place] [address] ARTHROPLASTY TOTAL KNEE 08/04/2025 10:30 AM EST [facility] [address], [place] [phone] Marc Reynolds MD 499 [facility] 300 [place] [address] 09/03/2025 8:15 AM EST [facility] [address] [place] [address] Jared Rousseau MD [address] [place] [address] 10/08/2025 8:00 AM EST Office Visit [address] 101 [place] [address] Ranjana Villarreal PA-C 100 [place] [address] Scheduled Procedures Name Priority Associated Diagnoses Date/Ti [...] on filedocumented in this encounter Care Teams Slotter Operator Helper Relationship Specialty Start Date End Date Ranjana Villarreal PA-C [address] [place] [address] PCP - General Internal Medicine 11/03/24 documented as of this encounter
--- OUTSIDE RECORDS SUMMARY | 2025-06-10 18:41 | XMS_ITS | Continuity of Care Document ---
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 04/24/2025 Novolog Slhgorb555Tqzg/ML Solution Pen-Inject inject 10 subcutaneously units 3 times a day before meals 30ml E11.42 Susan Bui M.D. 06/30/2024 Baqsimi One Jbro4bj/Dose Powder spray into nostril as needed for low sugar reaction 1units Susan Bui M.D. 02/14/2024 Lantus Yrpmxxgu011Edvi/ML Solution Pen-Inject inject 50 units daily as directed 45ml E11.42 Susan Bui M.D. 10/26/2023 Irhbhtqyq49xw Tablets Take 1 Tablet By Mouth Every Day For 30 Days Lynnette Cardona MD Atorvastatin Kgpiajx61sa Tablets 1 by mouth every day Unknown Amlodipine Cuolkute4ff Tablets Take 1 Tablet (5 MG Total) By Mouth Daily. Unknown Repatha Lkzfflmgb011fv/ml Solution Auto-Inject inject 1 syringe under the skin every 2 weeks Unknown Aspirin 8181mg Tablets DR 1 by mouth every day Susan Bui M.D. Hydroxyzine PNL50nj Tablets Take 1 Tablet By Mouth Every Day as Needed Unknown Dexcom G6 SensorMisc use 1 sensor every 10 days 9units E11.42 Susan Bui M.D. Dexcom G6 SensorMisc Please See Attached For Detailed Directions Unknown Wezoviyoaa530qo Capsules Take 2 Capsule By Mouth Three Times A Day Unknown Dexcom G6 TransmitterMisc To Use With Sensors DX E11.42 1units E11.42 Susan Bui M.D. Pantoprazole Okpfof26il Tablets DR Take 1 Tablet By Mouth Every Morning (Before Breakfast) For 360 Days. Unknown Albuterol Sulfate KCD141(90Base) mcg/Act Aerosol Take 2 Puffs By Mouth Every 4 Hours as Needed For Wheeze Unknown Ipratropium Bromide0.06% Solution Administer 2 Sprays Into Each Nostril Every 6 Hours as Needed For Rhinitis. Unknown Rvaiqrtgni25ql Tablets Take 1 Tablet By Mouth Every Day Unknown Hyoscyamine Sulfate0.125mg Tablets Take 1 Tablet By Mouth 4 Times Daily as Needed For Cramping Or Diarrhea For Up T Unknown Basaglar Bgacxfi349Slol/ML Solution Pen-Inject Inject 55 Units Into The Skin AT Bedtime 60ml E11.42 Susan Bui M.D. Trazodone EGS991jb Tablets Take 1 Tablet By Mouth Everyday [...] Inhouse Hemoglobin A1c 6.9% Gad65 Autoantibodies 08/15/2023 [facility] Gad65 Autoantibodies <5.0 1 Islet Cell Antibody 512 08/15/2023 [facility] Islet Cell Antibody 512 <7.5 2 Insulin Antibody 08/15/2023 [facility] Insulin Antibody 12 High 3 1 Reference range: 0.0 to 5.0 Unit: U/mL Test performed at [address] [address] 2 Unit: U/mL (NOTE) Reference Range: <7.5 Negative > or EQ 7.5 Positive Test performed by [facility], [address] [place] [address] 3 Unit: uU/mL (NOTE) This test is also known as insulin autoantibody or IAA. This test was developed and its performance characteristics determined by [facility]. It has not been cleared or approved by the Food and Drug Administration. Reference Range: <5.0 Negative > or EQ 5.0 Positive Test performed by [facility], [address] [facility], [place] [address] Procedures Date Code Description Status 08/10/2023 64698 Collection Of Venous Blood B y Venipuncture [...] Chip Meyer MD POSSIBLE SEIZURES Closed 5 [facility] [address] [place] [address] [phone]
--- OUTSIDE RECORDS SUMMARY | 2025-06-10 18:41 | XMS_ITS | Encounter Summary ---
Author Organization [facility] Address 100 [place] [address] Care Team Providers Care Revenue Cycle Specialist Name Role Phone Ranjana Villarreal PA-C Primary Care Provi erika Encounter Details Date Type Department Care Team ([facility] st Contact Info) Description 05/06/2025 Telephone [facility] [place] [address] [phone] Basia Brandt N, INCIDENT COMMANDER 85 [facility] [place] [address] [place] [phone] Social History Tobacco Use Types Packs/Day Years [...] 06/12/2025 12:30 PM EDT [facility] [address] [address] Rubi Woo, PT 7 [place], [place] 3699[address] 06/18/2025 11:20 AM EDT Consult [address] [phone] Maria D Hinojosa, INCIDENT COMMANDER [address] [place] [address] 06/19/2025 8:15 AM EDT [facility] [address] [phone] Jared Rousseau MD [address] [address] Milan Rodriguez, MARCOS 499 [facility] 300 [place] [address] 06/19/2025 12:30 PM EDT [facility] [address] [address] Rubi Woo, PT 7 [place] [address] 06/23/2025 1:15 PM EDT Telemedicine [facility] [place] [address] [place] [phone] Rebecca Angel, INCIDENT COMMANDER 31 [facility] 204[address] [place] [address] 06/26/2025 12:30 PM EDT [facility] of [address] 304 [place] [address] Rubi Woo, PT 7 [place] [address] 07/02/2025 4:15 PM EDT Office Visit [facility] 100 [facility] 101 [place] [phone] Mai Wisdom, INCIDENT COMMANDER 100 [facility] 101 [place] [address] 07/13/2025 8:00 AM EDT Telemedicine Clinical Support [facility] [place] Nutrition Services [address] [place] [phone] Meredith Waters, MARY 31 [facility] [address] [address] Reji Amos, DILIP 32 [place] [address] 07/14/2025 8:15 AM EDT Office [facility] [address] 303 [place] [address] Marc Reynolds MD 499 [facility] [address] [place], [place] 9[address] 07/20/2025 1:00 PM EDT Hospital Encounter [facility] [place] at [address] [phone] Marc Reynolds MD 499 [facility] [address] [place] [address] 07/20/2025 1:00 PM EDT - 07/20/2025 3:30 PM EDT Surgery [facility] [place] at [address] [address] Marc Reynolds MD 499 [facility] [address] [place] [address] ARTHROPLASTY TOTAL KNEE 08/04/2025 10:30 AM EST [facility] [address] [phone] Marc Reynolds MD [address] 7009[address] 09/03/2025 8:15 AM EST [facility] [address] [address] Jared Rousseau MD [address] [place] [address] 10/08/2025 8:00 AM EST Office Visit [address] 101 [place] [address] Ranjana Villarreal PA-C 100 [place] [address] Scheduled Procedures Name Priority Associated Diagnoses Date/Ti [...] on filedocumented in this encounter Care Teams Revenue Cycle Specialist Relationship Specialty Start Date End Date Ranjana Villarreal PA-C [address] [place] [address] PCP - General Internal Medicine 11/03/24 documented as of this encounter
--- OUTSIDE RECORDS SUMMARY | 2025-06-10 18:41 | XMS_ITS | Encounter Summary ---
Author Organization [facility] Address [address] [place] [address] Care Team Providers Care Bus Operator Name Role Phone Ranjana Villarreal PA-C Primary Care Provi erika Encounter Details Date Type Department Care Team (Latest Contact Info) Description 06/10/2025 Travel Social History Tobacco Use Types Packs/Day [...] 06/12/2025 12:30 PM EDT [facility] [address] [address] Rubi Woo, PT 7 [place] [address] 06/18/2025 11:20 AM EDT Consult [facility] Medical [facility] [address] [place] [phone] Maria D Hinojosa, ACCOUNTING LECTURER [address] [place] [address] 06/19/2025 8:15 AM EDT Consult [facility] of [address] 100 [place] [address] Jared Rousseau MD 31 [facility] 100 [place] [address] Milan Rodriguez APRN 499 [facility] 300 [place] [address] 06/19/2025 12:30 PM EDT [facility] of [address] [address] Rubi Woo, PT 7 [place] [address] 06/23/2025 1:15 PM EDT Telemedicine [facility] [place] [address] [place] [address] 2nd [place] [phone] Rebecca Angel APRN 31 [facility] 204[place], [place] [address] 06/26/2025 12:30 PM EDT [facility] [address] [address] Rubi Woo, PT 7 [place] [address] 07/02/2025 4:15 PM EDT Office Visit [facility] [address] [place] [address] Mai Wisdom, ACCOUNTING LECTURER [address] [place] [address] 07/13/2025 8:00 AM EDT Telemedicine Clinical Support [facility] [place] Nutrition Services [address] [place] [phone] Meredith Waters NP 31 [facility] [address] [address] Reji Amos, DILIP 32 [place] [address] 07/14/2025 8:15 AM EDT Office Visit [facility] [address] [address] Marc Reynolds MD [address] 338[address] 07/20/2025 1:00 PM EDT Hospital Encounter [facility] [place] at [address] [phone] Marc Reynolds MD [address] 399[address] 07/20/2025 1:00 PM EDT - 07/20/2025 3:30 PM EDT Surgery [facility] [place] at [address] [phone] Marc Reynolds MD 499 [facility] [address] [place] [address] ARTHROPLASTY TOTAL KNEE 08/04/2025 10:30 AM EST [facility] [address] [place] [address] Marc Reynolds MD [address] [facility] [address] [place] [address] 09/03/2025 8:15 AM EST [facility] [address] [place] [address] Jared Rousseau MD 31 [facility] 100 [place] [address] 10/08/2025 8:00 AM EST Office Visit [facility] 100 [facility] [address] [place] [address] Ranjana Villarreal PA-C 100 [place] [address] Scheduled Procedures Name Priority Associated Diagnoses Date/Ti [...] documented as of this encounter Care Teams Bus Operator Relationship Specialty Start Date End Date Ranjana Villarreal PA-C [address] [place] [address] PCP - General Internal Medicine 11/03/24 documented as of this encounter
--- OUTSIDE RECORDS SUMMARY | 2025-06-10 18:41 | XMS_ITS | Encounter Summary ---
Author Organization [facility] Address 100 [place] [address] Care Team Providers Care Snuff Packing Machine Operator Name Role Phone Ranjana Villarreal PA-C Primary Care Provi erika Encounter Details Date Type Department Care Team (Late st Contact Info) Description 06/05/2025 Orders Only [facility] [address] [place] [address] Primary Care, Scan Social History [...] 06/12/2025 12:30 PM EDT [facility] [address] [address] Rubi Woo, PT 7 [place] [address] 06/18/2025 11:[address] [facility] [address] [place] [phone] Maria D Hinojosa, BRICK KILN BURNER [address] [place] [address] 06/19/2025 8:15 AM EDT [facility] [address] 100 [place] [address] Jared Rousseau MD 31 [facility] 100 [place] [address] Milan Rodriguez, MARCOS 499 [facility] 300 [address] 06/19/2025 12:30 PM EDT Treatment [facility] of [address] [address] Rubi Woo, PT 7 [place] [address] 06/23/2025 1:15 PM EDT Telemedicine [facility] [address] [place] [address] 2nd [place] [address] Rebecca Angel APRN 31 [facility] [address], [place] [address] 06/26/2025 12:30 PM EDT [facility] [address] 304 [place] [address] Rubi Woo, PT 7 [place] [address] 07/02/2025 4:15 PM EDT Office Visit [facility] [address] [facility] 101 [place] [phone] Mai Wisdom, BRICK KILN BURNER 100 [facility] 101 [place] [address] 07/13/2025 8:00 AM EDT Telemedicine Clinical Support [facility] Services [address] [place] [phone] Meredith Waters NP 31 [facility] [address] [address] Reji Amos, DILIP 32 [place] [address] 07/14/2025 8:15 AM EDT [facility] [address] 303 [place] [address] Marc Reynolds MD [address] [address] 07/20/2025 1:00 PM EDT Hospital Encounter [facility] [place] at [address] [phone] Marc Reynolds MD [address] [address] 07/20/2025 1:00 PM EDT - 07/20/2025 3:30 PM EDT Surgery [facility] at [facility] 32 [place] [address] Marc Reynolds MD 499 [facility] [address] [address] ARTHROPLASTY TOTAL KNEE 08/04/2025 10:30 AM EST [facility] [address], [place] [address] Marc Reynolds MD [address] [facility] [phone] 09/03/2025 8:15 AM EST Office [facility] [address] [place] [address] Jared Rousseau MD [address] [place] [address] 10/08/2025 8:00 AM EST Office Visit [facility] 100 [facility] [address] [place] [address] Ranjana Villarreal PA-C 100 [place] [address] Scheduled Procedures Name Priority Associated Diagnoses Date/Ti [...] Date/Time Associated Diagnosis Comments LAB RESULT Routine 06/04/2025 11:41 AM EDT documented in this encounter Results * LAB RESULT (06/04/2025 11:41 AM EDT) us Scan Primary Care HX AMB PROCEDURES Edited Resul t - Final documented in this encounter Visit Diagnoses Not on filedocumented in this encounter Care Teams Snuff Packing Machine Operator Relationship Specialty Start Date End Date Ranjana Villarreal PA-C [address] [place] [address] PCP - General Internal Medicine 11/03/24 documented as of this encounter
--- OUTSIDE RECORDS SUMMARY | 2025-06-10 18:41 | XMS_ITS | Encounter Summary ---
Author Organization [facility] Address 100 [place] [address] Care Team Providers Care Communications Equipment Installer Name Role Phone Ranjana Villarreal PA-C Primary Care Provi erika Encounter Details Date Type Department Care Team (Late st Contact Info) Description 03/19/2025 Scanned Document [facility] [address] [place] [address] Pulmonary, Scan Social History Tobacco Use Types [...] 06/12/2025 12:30 PM EDT [facility] [address] [address] Rubi Woo, PT 7 [place] [address] 06/18/2025 11:20 AM EDT Consult [facility] [address] [place] [phone] Maria D Hinojosa APRN [address] [place] [address] 06/19/2025 8:15 AM EDT [facility] [address] 100 [place] [address] Jared Rousseau MD 31 [facility] 100 [place] [address] Milan Rodriguez APRN 499 [facility] 300 [place] [address] 06/19/2025 12:30 PM EDT [facility] [address] [address] Rubi Woo, PT 7 [place] [address] 06/23/2025 1:15 PM EDT Telemedicine [facility] [address] [place] [address] 2nd [place] [address] Rebecca Angel APRN 31 [facility] [address] [place] [address] 06/26/2025 12:30 PM EDT [facility] [address] [place] [address] Rubi Woo, PT 7 [place] [address] 07/02/2025 4:15 PM EDT Office Visit [facility] [address] [facility] 101 [place] [phone] Mai Wisdom APRN [address] [facility] 101 [place] [address] 07/13/2025 8:00 AM EDT Telemedicine Clinical Support [facility] Nutrition Services [address] [place] [phone] Meredith Waters NP 31 [facility] [address] [address] Reji Amos, DILIP 32 [place] [address] 07/14/2025 8:15 AM EDT Office [facility] [address] 303 [place] [address] Marc Reynolds MD [address] [phone] 07/20/2025 1:00 PM EDT Hospital Encounter [facility] at [address] [phone] Marc Reynolds MD [address] [address] 07/20/2025 1:00 PM EDT - 07/20/2025 3:30 PM EDT Surgery [facility] at [facility] 32 [place] [address] Marc Reynolds MD 499 [facility] [address] [place] [address] ARTHROPLASTY TOTAL KNEE 08/04/2025 10:30 AM EST [facility] [address] [address] Marc Reynolds MD 499 [facility] [address] [place] [address] 09/03/2025 8:15 AM EST [facility] [address] [place] [address] Jared Rousseau MD [address] [place] [address] 10/08/2025 8:00 AM EST Office [facility] 100 [facility] [address] [place] [address] Ranjana Villarreal PA-C 100 [place] [address] Scheduled Procedures Name Priority Associated Diagnoses Date/Ti me ARTHROPLASTY TOTAL KNEE Primary osteoarthritis of right knee 07/20/2025 1:00 PM EDT documented as of this encounter Visit Diagnoses Not on filedocumented in this encounter Care Teams Communications Equipment Installer Relationship Specialty Start Date End Date Ranjana Villarreal PA-C 100 [place] [address] PCP - General Internal Medicine 11/03/24 documented as of this encounter
--- OUTSIDE RECORDS SUMMARY | 2025-06-10 18:41 | XMS_ITS | Encounter Summary ---
Author Organization [facility] Address [address] [place] [address] Care Team Providers Care Full Stack Web Developer Name Role Phone Ranjana Villarreal PA-C Primary Care Provi erika Encounter Details Date Type Department Care Team (Late st Contact Info) Description 05/15/2025 Scanned Document [facility] 1290 [place] [address] Cardiology, Scan Social History Tobacco Use Types [...] 06/12/2025 12:30 PM EDT [facility] [address] [address] Rubi Woo, PT 7 [place] [address] 06/18/2025 11:20 AM EDT Consult [facility] [address] [place] [phone] Maria D Hinojosa APRN [address] [place] [address] 06/19/2025 8:15 AM EDT [facility] of [address] 100 [place] [address] Jared Rousseau MD 31 [facility] 100 [place] [address] Milan Rodriguez APRN 499 [facility] 300 [place] [address] 06/19/2025 12:30 PM EDT [facility] of [address] [address] Rubi Woo, PT 7 [place] [address] 06/23/2025 1:15 PM EDT Telemedicine [facility] [place] [address] [place] [address] 2nd [place] [address] Rebecca Angel APRN 31 [facility] [address] [place] [address] 06/26/2025 12:30 PM EDT [facility] of [address] [place] [address] Rubi Woo, PT 7 [place] [address] 07/02/2025 4:15 PM EDT Office [facility] [address] [facility] 101 [place] [phone] Mai Wisdom APRN [address] [facility] 101 [place] [address] 07/13/2025 8:00 AM EDT Telemedicine Clinical Support [facility] [place] Nutrition Services [address] [place] [phone] Meredith Waters NP 31 [facility] [address] [address] Reji Amos, DILIP 32 [place] [address] 07/14/2025 8:15 AM EDT Office [facility] [address] 303 [place] [address] Marc Reynolds MD [address] [address] 07/20/2025 1:00 PM EDT Hospital Encounter [facility] [place] at [address] [phone] Marc Reynolds MD [address] [address] 07/20/2025 1:00 PM EDT - 07/20/2025 3:30 PM EDT Surgery [facility] at [facility] 32 [place] [address] Marc Reynolds MD 499 [facility] [address] [place] [address] ARTHROPLASTY TOTAL KNEE 08/04/2025 10:30 AM EST [facility] [address], [place] [address] Marc Reynolds MD 499 [facility] [address] [place], [place] [address] 09/03/2025 8:15 AM EST Office [facility] [address] [place] [address] Jared Rousseau MD [address] [address] 10/08/2025 8:00 AM EST Office Visit [facility] 100 [facility] [address] [place] [address] Ranjana Villarreal PA-C 100 [place] [address] Scheduled Procedures Name Priority Associated Diagnoses Date/Ti [...] on filedocumented in this encounter Care Teams Full Stack Web Developer Relationship Specialty Start Date End Date Ranjana Villarreal PA-C [address] [place] [address] PCP - General Internal Medicine 11/03/24 documented as of this encounter
--- OUTSIDE RECORDS SUMMARY | 2025-06-10 18:41 | XMS_ITS | Clinical Summary ---
Author Organization [facility] Address 5 [place] [address] Care Team Providers Care Water Tender Name Role Phone Unavailable Primary Care Provider [...] 2016 Zoster (Shingrix) (1 of 2) 2016 DTaP/Tdap/Td (2 - Td or Tdap) 10/22/2024 10/22/2014 COVID-19 Vaccine (3 - season) 2025 12/29/2020, 12/01/2020 Influenza (#1) 2025 07/15/2020, 07/01, 08/01/2016, Additional [...]
--- OUTSIDE RECORDS SUMMARY | 2025-06-10 18:41 | XMS_ITS | Encounter Summary ---
Author Organization [facility] Address [address] [place] [address] Care Team Providers Care Drapery Estimator Name Role Phone Ranjana Villarreal PA-C Primary Care Provi erika Reason for Visit * Reason Onset Date Comments Medication Refill 06/05/2025 Encounter Details Date Type Department Care Team (Late st Contact Info) Description 06/05/2025 Refill [facility] [address] [address] Jared Rousseau MD [address] [place] [address] Back pain, unspecified back location, unspecified back pain laterality, unspecified chronicity Social History Tobacco Use Types Packs/Day Years [...] 06/12/2025 12:30 PM EDT [facility] [address] [address] Rubi Woo, PT 7 [place] [address] 06/18/2025 11:20 AM EDT Consult [facility] [address] [place] [phone] Maria D Hinojosa APRN [address] [place] [address] 06/19/2025 8:15 AM EDT [facility] [address] [address] Jared Rousseau MD [address] [facility] 100 [place] [address] Milan Rodriguez, MARCOS 499 [facility] 300 [place] [address] 06/19/2025 12:30 PM EDT [facility] [address] [address] Rubi Woo, PT 7 [place] [address] 06/23/2025 1:15 PM EDT Telemedicine [facility] [place] [address] [place] [address] 2nd [place] [phone] Rebecca Angel APRN [address] [address] 06/26/2025 12:30 PM EDT [facility] of [address] [place] [address] Rubi Woo, PT 7 [place] [address] 07/02/2025 4:15 PM EDT Office Visit [facility] [place] [facility] 100 [facility] 101 [place] [phone] Mai Wisdom, ANESTHESIOLOGIST ASSISTANT CERTIFIED 100 [facility] 101 [place] [address] 07/13/2025 8:00 AM EDT Telemedicine Clinical Support [facility] [place] Nutrition Services [address] [place] [phone] Meredith Waters, MARY [address] [place] [address] [address] [address] Reji Amos, RD 32 [place] [address] 07/14/2025 8:15 AM EDT [facility] [address] [place] [address] Marc Reynolds MD [address] [facility] [address] [place], [place] [address] 07/20/2025 1:00 PM EDT Hospital Encounter [facility] [place] at [address] [phone] Marc Reynolds MD [address] [place] [address] 07/20/2025 1:00 PM EDT - 07/20/2025 3:30 PM EDT Surgery [facility] [place] at [address] [phone] Marc Reynolds MD [address] [place] [address] ARTHROPLASTY TOTAL KNEE 08/04/2025 10:30 AM EST [facility] [address] [address] Marc Reynolds MD [address] [place] [phone] 09/03/2025 8:15 AM EST [facility] [address] [place] [address] Jared Rousseau MD [address] [place] [address] 10/08/2025 8:00 AM EST Office Visit [address] 101 [place] [phone] Ranjana Villarreal PA-C 100 [place] [address] Scheduled Procedures Name Priority Associated Diagnoses Date/Ti [...] location, unspecified back pain laterality, unspecified chronicity Primary osteoarthritis of right knee documented in this encounter Care Teams Drapery Estimator Relationship Specialty Start Date End Date Ranjana Villarreal PA-C [address] [place] [address] PCP - General Internal Medicine 11/03/24 documented as of this encounter
== END 2025-06-10 16:37 | disposition home or self-care (01) ==
LOC: HO.HKAE 16:17
PROVIDERS: PCP Physician Assistant Medical; Visit Provider Internal Medicine Hypertension Specialist
DX: I12.9 Hypertensive chronic kidney disease with stage 1 through stage 4 chronic kidney disease, or unspecified chronic kidney disease (principal); E87.5 Hyperkalemia; N18.9 Chronic kidney disease, unspecified; E66.9 Obesity, unspecified; D64.9 Anemia, unspecified
CPT/HCPCS: 99214

== ENCOUNTER 2025-07-15 08:58 | Outpatient (AMB) | payer BC, SELFPAY ==
--- OUTSIDE RECORDS SUMMARY | 2025-07-13 08:00 | XMS_ITS | Encounter Summary ---
Author Organization Formerly [facility] Address [address] [place] [address] Care Team Providers Care Clean Rice Grader And Reel Tender Name Role Phone Ranjana Villarreal PA-C Primary Care Provi erika Reason for Visit * Nutrition Services (Routine) - Authorized Specialty Diagnoses / Procedures Referred By Contac t Referred To Contact Nutrition Diagnoses Morbid obesity (HCC) Rebecca Angel APRN [address] [address] Phone: tel: fax: [facility] [address] [place] [phone] Phone: tel: fax: Referral ID Status Reason Start Date Expiration Date Visits Requested Visits Authorized [id number] Authorized Support Services 09/30/2026 99 [phone] Encounter Details Date Type Department Care Team (Latest Contact Info) Description 07/13/2025 8:00 AM EDT Telemedicine Clinical Support [facility] [address] [place] [phone] Meredith Waters NP [address] [place] [address] [place] [address] Type 2 diabetes mellitus without complication, with [...] Oxygen Concentration - - Weight 122 kg (269 lb) 07/13/2025 8:23 AM EDT Height - - Body Mass Index 44.76 07/02/2025 9:01 AM EDT documented in this encounter Progress Notes * Reji Amos RD - 07/13/2025 8:06 AM EDT Virtual Nutrition Followup Name: Ewelina Mathis Date: 07/13/2025 Provider:Reji Amos Location of Visit: [facility] Referred by: Ranjana Villarreal* Reason(s) for Referral: E66.01 (ICD-10-CM) - Morbid obesity (HCC) Ewelina Sarah being seen today for a visit the telehealth technology via Zoom The patient's identity was confirmed by name and date of . The patient reported the following physical address during the telehealth visit: [place] [address] [facility] [phone] In the event this visit is discontinued, the patient's telephone contact is: [phone] Additional persons present during telehealth visit: none. [...] good. Food Related Allergies: Allergies Allergen Reactions Ceftriaxone Rash/Dermatitis Metformin Diarrhea Anthropometrics: Weight: (per pt) Wt Readings from Last 1 Encounters: 07/13/25 122 kg (269 lb) Height: Ht Readings from Last 1 Encounters: 07/02/25 1.651 m (5' 5 ) Weight Change: Reduce Body mass index is 44.76 kg/m??. IBW 125 lbs (56.8 kg) AdjBW: 191 lbs (86.8 kg) Weight History: Wt Readings from Last 3 Encounters: 07/13/25 122 kg (269 lb) 07/02/25 125 kg (275 lb) 06/18/25 127 kg (280 lb) Nutrition Physical Findings / Physical Appearance: n/a zoom Nutrition Assessment / Summary Reji Amos met with Ewelina today via telehealth using [facility]'s policies and procedures as a part of the modify program. She has returned from [place] and had a fun experiences with enjoyment of the presence of her granddaughter's for her 6th birthday. She reported eating breakfast every morning however, it was occasionally a lower carbohydrates which was coupled with increased physical activity (walking around town) caused lower BG during the afternoon. In contrast, other nights they would go out for meals and her blood glucose would be elevated in the evening. She has made the decision to cancel her total joint replacement and proceed with injection (non-cortisone) on July 20. Will continue to monitor. Beverages: - Water Intake: Yes Juan J (30 fl oz) -- 2.5 per day (increase) - Juice Intake: No - Soda Intake: Yes -- Diet Soda 2 x 20 fl oz over 2 weeks - Alcohol Intake: No Nutritional Supplements: MVT Estimated Daily Energy and Protein Needs: Calories: 1779 calories per day? Protein: 52 - 69 grams / day (0.6-0.8 g/kg) Based On: IBW, ROD POINTER, [place] Je[place], Active Weight Loss (-500 per [...] mg/dL HA1c: n/a Creatinine: 1.63 SMBG: AM (today): 100 mg/dL AM Range: 90 mg/dL to 118 mg/dL - Sensor fell off on Sunday (no readings from Sunday to Sunday morning) PM Range: 170 mg/dL (after dinner) A few lows - 2 overnight low -- 78 mg/dL --> 64 mg/dL (ate a granola bars + BG tablets) Afternoon low - 73 mg/dL -- had a peanut butter sandwich Medications: acetaminophen (TYLENOL) 500 MG tablet Take 1 tablet (500 mg total) by mouth 4 times daily (every 6 hours) as needed for mild pain. albuterol (PROVENTIL HFA; VENTOLIN HFA) 108 (90 Base) MCG/ACT inhaler INHALE 2 PUFFS EVERY 4 TO 6 HOURS NEEDED FOR SHORTNESS OF BREATH OR FOR WHEEZE amLODIPine (NORVASC) 5 MG tablet Take 1 tablet (5 mg total) by mouth daily. aspirin enteric coated (ECOTRIN LOW STRENGTH) 81 MG EC tablet Take 1 tablet (81 mg total) by mouth every morning. atorvastatin (LIPITOR) 80 MG tablet Take 1 tablet (80 mg total) by mouth every morning. budesonide-formoterol (SYMBICORT) 160-4.5 MCG/ACT inhaler Inhale 2 puffs twice daily (every 12 hours). buPROPion (WELLBUTRIN XL) 300 MG 24 hr tablet Take 1 tablet (300 mg total) by mouth every morning. Continuous Glucose Sensor (Dexcom G6 Sensor) Misc USE 1 SENSOR EVERY 10 DAYS Continuous Glucose Transmitter (Dexcom G6 Transmitter) Misc 1 DEVICE BY DOES NOT APPLY ROUTE SEE ADMIN INSTRUCTIONS. CHANGE TRANSMITTER EVERY 3 MONTHS. estradiol (ESTRACE) 0.01 % vaginal cream APPLY PEA-SIZED AMOUNT TO URETHRA DAILY X 1 MONTH THEN THREE DAYS A WEEK THEREAFTER evolocumab (REPATHA SURECLICK) 140 MG/ML auto-injector Inject 1 mL (140 mg total) under the skin every 14 days (2 weeks). gabapentin (NEURONTIN) 300 MG capsule Take 1 capsule (300 mg total) by mouth 3 (three) times a day. hydroCHLOROthiazide (MICROZIDE) 12.5 MG capsule Take 1 capsule (12.5 mg total) by mouth every morning. hydrOXYzine HCl (ATARAX) 10 MG tablet Take 1 tablet (10 mg total) by mouth daily as needed. insulin aspart (NovoLOG FlexPen) 100 UNIT/ML prefilled pen injection Inject 10 Units under the skin3 (three) times a day before meals. Patient reports utilizing sliding scale insulin glargine (insulin glargine, JEANNEAGLANTONIETA VEGA,) 100 units/mL prefilled pen injection Inject 50 Units under the skin nightly. ipratropium (ATROVENT) 0.03 % nasal spray as needed. ipratropium-albuterol (DUONEB) 0.5-2.5 mg/3 mL nebulizer solution 3 ML INHALED EVERY 6 HOURS NEEDED FOR WHEEZING methocarbamol (ROBAXIN) 750 MG tablet Take 1 tablet (750 mg total) by mouth 4 (four) times a day asneeded for muscle spasms. Multiple Vitamin tablet Take 1 tablet by mouth every morning. naltrexone (REVIA) 50 MG tablet Take 1 tablet (50 mg total) by mouth every morning. PANTOprazole (PROTONIX) 40 MG EC tablet Take 1 tablet (40 mg total) by mouth daily. primidone (MYSOLINE) 50 MG tablet Take 1 tablet (50 mg total) by mouth nightly. SUPPLY DME [facility] Walker with seat & breaks [employer] [address] [place] [address] traZODone (DESYREL) 100 MG tablet Take 1 tablet (100 mg total) by mouth nightly. Nutrition Diagnosis: Overweight/Obesity related to excess energy intake and sub optimal activity level, as evidenced by Body mass index is 44.76 kg/m??. - continues Inadequate carbohydrate intake r/t [...] per day (Breakfast, Snack #1, Dinner, Snack #2 Pre-Bed). 2) Ask cnc manager (07/31) about insulin regiment specifically prior to bed; and assessment of Hemoglobin A1c. 3) Test blood glucose regularly. Monitoring & Evaluation: RD will monitor and evaluate nutrition prescription and provide additional interventions and recommendations based on nutrition/clinical status. Follow Up Time Frame: 4 weeks Visit Length: 60 minutes Sign: Reji Amos RD 07/13/2025 8:23 AM BJI MODIFY Visit type: Office visit Contact type: Follow-up visit Referral reason: Weight loss and DM control Referring Provider: Rebecca Angel APRN Is surgery being contemplated? Yes Planned surgery type: Joint Date of surgery: 07/20 Progress at each contact: Worse Status in program: Continued participation documented in this encounter Plan of Treatment Upcoming Encounters Date Type Department Care Team (Quique st Contact Info) Description 07/20/2025 Scanned Document [facility] [place] at [address] [phone] Orthopedic Surgery, Scan 07/21/2025 2:00 PM EDT Appointment [facility] [address] [address] Kemar Storey MD [address] [facility] [address] [place] [address] 08/19/2025 8:00 AM EST Telemedicine Clinical Support [facility] [place] [facility] 32 [facility] 1st [place] [phone] Meredith Waters NP 31 [facility] [address] [address] [place] [address] 09/03/2025 8:15 AM EST Office Visit [facility] [address] [place], [place] [address] Jared Rousseau MD 31 [facility] 100 [place] [address] 09/03/2025 1:00 PM EST Procedure visit [facility] [place] [address] [place] [phone] 10/06/2025 7:40 AM EST Office Visit [facility] [address] [phone] Maria D Hinojosa, MARCOS [address] [place] [address] 10/08/2025 8:00 AM EST Office Visit [address] [place] [phone] Ranjana Villarreal PA-C [address] [place] [address] documented as of this encounter Visit Diagnoses Diagnosis Type 2 diabetes mellitus without complication, with long-term current use of insulin (HCC)- Primary Morbid obesity (HCC) Morbid obesity documented in this encounter Care Teams Clean Rice Grader And Reel Tender Relationship Specialty Start Date End Date Ranjana Villarreal PA-C [address] [place] [address] PCP - General Internal Medicine 11/03/24 documented as of this encounter
--- NOTE | 2025-07-15 09:01 | MHC.OFFVIS ---
Vital Signs 07/15/25 09:02 Height 5 ft 5 in Weight 285 lb BMI 47.4 BP 140/80 H Blood Pressure Location Rt brachial Position Sitting Pulse 94 Pulse Source Pulse Oximeter Pulse Oximetry (%) 97 Oxygen Delivery Method Room Air Intake Visit Reasons: Dyspnea Resource Forester Required: No Asbestos Microscopist: Asbestos Microscopist offered & declined Accompanied by: Self / Same As Patient Allergies cephalexin Allergy (Intermediate, Verified 07/15/25 09:05) Rash metformin Adverse Reaction (Verified 07/15/25 09:05) diarrhea and vomiting Medication List - Last Reconciled 07/15/25 by Rhina Falk LPN acetaminophen ER 650 mg PO Q12H PRN albuterol sulfate 90 mcg/actuation 2 puffs PO Q4-6H PRN amlodipine 5 mg PO DAILY ascorbic acid (vitamin C) 1 g PO DAILY 90 days aspirin 81 mg PO DAILY atorvastatin 80 mg PO DAILY blood-glucose sensor (Hi-Midia G6 Sensor device) As directed blood-glucose transmitter (Dexcom G6 Transmitter device) As directed budesonide-formoterol 160-4.5 mcg/actuation (Symbicort) 2 puffs inhalation Q12H bupropion HCl XL 300 mg PO DAILY estradiol 0.01%(0.1mg/gram) 2 grams vaginal DAILY 90 days evolocumab (Repatha SureClick) 140 mg subcut Q2W 90 days fluticasone propionate 50 mcg/actuation (Flonase Allergy Relief) 1 spray intranasal DAILY gabapentin 600 mg (2 x 300 mg) PO TID 90 days hydrochlorothiazide 25 mg PO DAILY hydroxyzine HCl 10 mg PO DAILY PRN insulin glargine (Basaglar KwikPen U-100 Insulin) 50 units subcut QPM insulin lispro (Humalog KwikPen (U-100) Insulin) 10 sliding scale doses subcut USEASDIRECTD ipratropium bromide 2 sprays intranasal BID ipratropium-albuterol 0.5 mg-3 mg(2.5 mg base)/3 mL 3 mL inhalation Q6H PRN losartan 25 mg PO DAILY methenamine hippurate 1 g PO DAILY 90 days methocarbamol 750 mg PO Q6H PRN naltrexone 25 mg PO DAILY nitrofurantoin monohyd/m-cryst 100 mg (Macrobid) 100 mg PO BID 10 days pantoprazole 40 mg PO DAILY polyethylene glycol 3350 (Miralax) 17 grams PO DAILY 30 days primidone 50 mg PO BEDTIME 90 days trazodone mg PO HPI HPI Dyspnea: Details: Ewelina is a pleasant 60 year old, never smoker, with underlying history of COVID in 2020 requiring 8 day ICU stay and hospital admission for sepsis, DKA, pneumonia, h/o COVID 2022 IA with acute respiratory failure with hypoxia in August 2023, and post covid syndrome. She underwent s/p cardiac cath revealing mild CAD and echocardiogram with LVEF of 65-70% with mild diastolic dysfunction, discharged from cardiology due to stability. She is currently utilizing Breyna and infrequent use of albuterol MDI, however notes more notable dyspnea over the last few months. Denies any wheezing or cough. Denies orthopnea or BLE edema. She denies any visits or hospitalizations related to respiratory distress, although again noted worsening respiratory symptoms likely related to altitude changes while in [place] recently with significant use of albuterol. [facility] Medical History Carotid stenosis, bilateral Elevated serum GGT level Atherosclerotic cardiovascular disease Non-ST elevation IA (NSTEMI) Action tremor Chronic headaches GERD (gastroesophageal reflux disease) Hyperlipidemia Depression Pneumonia Sepsis Barretts esophagus Dyslipidemia HTN (hypertension) Charcot's joint of foot Diabetes Surgical History History of esophagogastroduodenoscopy (EGD) Hx of colonoscopy H/O foot surgery Hx of cholecystectomy H/O: hysterectomy Family History Son Substance use disorder Father Substance use disorder Mother Substance use disorder Family/Other Substance use disorder Maternal Grandfather Heart problem Maternal Uncle Heart problem Paternal Grandmother Heart problem Sister Heart problem Social History Household Members: None Housing: Condominium Do you presently have visiting nurse or other home services: No Alcohol intake: never Patient Tobacco Use Status: Never used Tobacco e-Cigarette/Vaping Use: Never Used Second Hand Smoke Exposure: No Advance Directives Date on File: 07/25/23 service: No Current occupational status: employed 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 Current occupational exposures/hazards: No Cognitive needs: No Hearing needs: No Vision needs: No Review of Systems Const Denies chills, Denies excessive sweating, Denies fever(s), Denies headache(s) and Denies night sweats Eyes Denies dry eyes, Denies irritation and Denies itchy eyes ENT Reports Normal hearing present, Denies headache(s), Denies nasal congestion, Denies nasal discharge, Denies post nasal drip and Denies sore throat Card Denies chest pain, Denies chest pain at rest, Denies chest pain with activity, Denies claudication, Denies leg edema, Reports dyspnea on exertion, Denies orthopnea and Denies paroxysmal nocturnal dyspnea Resp Denies chest congestion, Denies cough, Denies excessive phlegm production, Denies pain on inspiration, Denies pain with cough, Reports dyspnea on exertion and Denies stridor Musc Denies myalgias Neuro Reports Normal hearing present and Denies headache(s) Endo Denies excessive sweating Gary/Lymph Denies lymphadenopathy Aller/Immun Denies itchy eyes and Denies seasonal rhinorrhea Physical Exam Vital Signs: Last Vital Signs Pulse 94 07/15/25 09:02 BP 140/80 H 07/15/25 09:02 Pulse Ox 97 07/15/25 09:02 Oxygen Delivery Method Room Air 07/15/25 09:02 BMI result Body Mass Index 47.4 Const General: cooperative, healthy appearing, comfortable, no acute distress, well developed and alert Nutritional Appearance: obese Orientation/consciousness: patient oriented x3 Limitations: no limitations HEENT Head: Yes normal to inspection, Yes normocephalic and Yes atraumatic Ears: hearing grossly normal bilaterally and external ears normal Eyes General: appearance normal, both eyes and all related structures Eyelids: Yes eyelids normal Sclerae: sclerae normal EOM: EOMs intact bilaterally Neck Neck: Yes normal visual inspection and Yes no lymphadenopathy Lymphatic: no lymphadenopathy noted Chest Chest palpation & inspection: normal inspection of the chest Resp Effort & Inspection: normal respiratory effort, able to speak in complete sentences, no audible wheezes, no cough, no stridor, not tachypneic, no tripod positioning and no use of accessory muscles Auscultation: diminished lung sounds Cardio Jugular venous distension: no JVD Rate: regular rate Rhythm: regular rhythm Skin Other: warm, dry General skin exam: no rashes or lesions noted Neuro General: patient oriented x3 Cranial nerves: Yes Normal hearing present Cognition (Neuro): normal cognition Gait exam (Neuro): Normal gait present Extrem General: Yes normal to inspection, Yes capillary refill normal, Yes no clubbing, cyanosis or edema and Yes no pedal edema Psych Appearance: grossly normal and well kempt Speech and movement: Normal speech and movement present and Clear speech present Affect: normal affect Attitude: cooperative Thought process: Normal thought process present Thought content: Normal thought content present Insight: Good insight present (Psych) Judgement: Good judgement present (Psych) Assessment & Plan Assessment & Plan (1) Post-COVID syndrome: Code(s): U09.9 - Post COVID-19 condition, unspecified Category: Medical (2) Dyspnea on exertion: Code(s): R06.09 - Other forms of dyspnea Category: Medical (3) Bronchiectasis: Code(s): J47.9 - Bronchiectasis, uncomplicated Category: Medical Plan Ewelina reports moderate control of respiratory symptoms on current regimen, advised to continue Breyna, albuterol MDI/neb. Given worsening dyspnea will repeat PFT. She is aware to call if symptoms change. All questions were answered and patient is in agreement of plan. Will follow up to review results or sooner if needed. Orders: Orders PFT pulmonary function test Today R06.00 - Dyspnea, unspecified, U09.9 - Post COVID-19 condition, unspecified Medications: New albuterol sulfate 2.5 mg (3 mL) inhalation Q4-6H PRN 180 mL 3RF shortness of breath or wheezing Refilled albuterol sulfate 90 mcg/actuation 2 puffs PO Q4-6H PRN 8.5 grams 3RF for wheezing budesonide-formoterol 160-4.5 mcg/actuation (Symbicort) 2 puffs inhalation Q12H 10.2 grams 3RF Coding Level of Care Code Est Pt Level 4 (47049) Diagnoses Post-COVID syndrome U09.9 Dyspnea on exertion R06.09 Bronchiectasis J47.9
[2025-07-15 09:02] VITALS: BP 140/80; PULSE 94; O2SAT 97; BMI 47.4
--- OUTSIDE RECORDS SUMMARY | 2025-07-15 09:45 | XMS_ITS | Encounter Summary ---
Author Organization [facility]ly [facility] Address [address] [place] [address] Care Team Providers Care Bailiff Name Role Phone Ranjana Villarreal PA-C Primary Care Provi erika Encounter Details Date Type Department Care Team (Late st Contact Info) Description 05/06/2025 Telephone [facility] [place] [address] [phone] Basia Brandt N, REAL ESTATE UTILIZATION OFFICER [address] [phone] Social History Tobacco Use Types Packs/Day Years [...] Care Team (Late st Contact Info) Description 07/20/2025 Scanned Document [facility] [place] at [address] [phone] Orthopedic Surgery, Scan 07/21/2025 2:00 PM EDT [facility]ointment [facility] [address] [phone] Kemar Storey MD [address] [place] [address] 08/19/2025 8:00 AM EST Telemedicine Clinical Support [facility] [place] [facility] 32 [facility] 1st [place] [phone] Meredith Waters NP 31 [facility] [address] [address] Reji Amos, DILIP 32 [place] [address] 09/03/2025 8:15 AM EST Office [facility] [address] [facility] [address] [place] [address] Jared Rousseau MD [address] [address] 09/03/2025 1:00 PM EST Procedure visit [facility] [place] [address] [place] [phone] 10/06/2025 7:40 AM EST Office Visit [facility] [place] [address] [place] [address] Maria D Hinojosa, REAL ESTATE UTILIZATION OFFICER [address] [place] [address] 10/08/2025 8:00 AM EST Office Visit [facility] [address] [facility] [address] [place] [address] Ranjana Villarreal PA-C [address] [place] [address] documented as of this encounter Visit Diagnoses Not on filedocumented in this encounter Care Teams Bailiff Relationship Specialty Start Date End Date Ranjana Villarreal PA-C [address] [place] [address] PCP - General Internal Medicine 11/03/24 documented as of this encounter
--- OUTSIDE RECORDS SUMMARY | 2025-07-15 09:45 | XMS_ITS | Encounter Summary ---
Author Organization [facility] Address [address] [place] [address] Care Team Providers Care Media Services Director Name Role Phone Ranjana Villarreal PA-C Primary Care Provi erika Encounter Details Date Type Department Care Team (Late st Contact Info) Description 06/19/2025 Scanned Document [facility] [place] [address] [facility] [address] [place] [phone] Maria D Hinojosa, APPLICATION SUPPORT [address] [place] [address] Social History Tobacco Use Types Packs/Day Years [...] st Contact Info) Description 07/20/2025 Scanned Document [facility] [place] at [address] [phone] Orthopedic Surgery, Scan 07/21/2025 2:00 PM EDT [facility]ointment [facility] [address] [phone] Kemar Storey MD [address] [place] [address] [address] [place] [address] 08/19/2025 8:00 AM EST Telemedicine Clinical Support [facility] [place] Nutrition Services 32 [facility] 1st [place] [phone] Meredith Waters NP 31 [facility] [address] [address] Reji Amos, DILIP [address] [place] [address] 09/03/2025 8:15 AM EST [facility] 7 [facility] [address] [place] [address] Jared Rousseau MD [address] [address] 09/03/2025 1:00 PM EST Procedure visit [facility] [place] [address] [place] [phone] 10/06/2025 7:40 AM EST Office Visit [facility] [place] [address] [place] [address] Maria D Hinojosa, APPLICATION SUPPORT [address] [place] [address] 10/08/2025 8:00 AM EST Office Visit [facility] 100 [facility] [address] [place] [phone] Ranjana Villarreal PA-C 100 [place] [address] documented as of this encounter Visit Diagnoses Not on filedocumented in this encounter Care Teams Media Services Director Relationship Specialty Start Date End Date Ranjana Villarreal PA-C [address] [place] [address] PCP - General Internal Medicine 11/03/24 documented as of this encounter
--- OUTSIDE RECORDS SUMMARY | 2025-07-15 09:45 | XMS_ITS | Encounter Summary ---
Author Organization [facility] Address 100 [place] [address] Care Team Providers Care Lining Layer Name Role Phone Ranjana Villarreal PA-C Primary Care Provi erika Encounter Details Date Type Department Care Team (Late st Contact Info) Description 12/09/2024 Scanned Document [facility] PULMONOLGY SCAN Pulmonary, Scan Social History [...] st Contact Info) Description 07/20/2025 Scanned Document [facility] [place] at [address] [phone] Orthopedic Surgery, Scan 07/21/2025 2:00 PM EDT Appointment [facility] 150 [place] [address] Kemar Storey MD [address] [facility] [address] [place] [address] 08/19/2025 8:00 AM EST Telemedicine Clinical Support [facility] [place] Nutrition Services [address] [place] [phone] Meredith Waters NP [address] [place] [address] [address] [address] Reji Amos, DILIP 32 [place] [address] 09/03/2025 8:15 AM EST Office Visit [facility] [address] [address] Jared Rousseau MD [address] [place] [address] 09/03/2025 1:00 PM EST Procedure visit [facility] Pulmonary [place] [address] [place] [phone] 10/06/2025 7:40 AM EST Office Visit [facility] Pulmonary [address] [phone] Maria D Hinojosa APRN 699 [place] [address] 10/08/2025 8:00 AM EST Office Visit [address] 101 [place] [address] Ranjana Villarreal PA-C 100 [place] [address] documented as of this encounter Visit Diagnoses Not on filedocumented in this encounter Care Teams Lining Layer Relationship Specialty Start Date End Date Ranjana Villarreal PA-C 100 [place] [address] PCP - General Internal Medicine 11/03/24 documented as of this encounter
--- OUTSIDE RECORDS SUMMARY | 2025-07-15 09:45 | XMS_ITS | Encounter Summary ---
Author Organization [facility] Address 100 [place] [address] Care Team Providers Care Survey Interviewer Name Role Phone Ranjana Villarreal PA-C Primary Care Provi erika Encounter Details Date Type Department Care Team (Late st Contact Info) Description 06/19/2025 Scanned Document [facility]monary [place] 704 [facility] [address] [place] [phone] Maria D Hinojosa, SAFETY BELT INSTALLER 699 [place] [address] Social History Tobacco Use Types Packs/Day Years [...] st Contact Info) Description 07/20/2025 Scanned Document [facility] [place] at [address] [phone] Orthopedic Surgery, Scan 07/21/2025 2:00 PM EDT [facility]ment [facility] [address] [address] Kemar Storey MD [address] [place] [address] [address] [place] [address] 08/19/2025 8:00 AM EST Telemedicine Clinical Support [facility] [place] Nutrition Services 32 [facility] 1st [place] [phone] Meredith Waters NP 31 [facility] [place] [address] [address] Reji Amos, DILIP 32 [place] [address] 09/03/2025 8:15 AM EST Office Visit [facility] 7 [facility] [address] [place] [address] Jared Rousseau MD [address] [address] 09/03/2025 1:00 PM EST Procedure visit [facility] Pulmonary [place] 699 [place] [phone] 10/06/2025 7:40 AM EST Office Visit [facility] Pulmonary [place] 100 [place] [address] Maria D Hinojosa, SAFETY BELT INSTALLER 6[address] [place] [address] 10/08/2025 8:00 AM EST Office Visit [facility] 100 [facility] [address] [place] [address] Ranjana Villarreal PA-C 100 [place] [address] documented as of this encounter Visit Diagnoses Not on filedocumented in this encounter Care Teams Survey Interviewer Relationship Specialty Start Date End Date Ranjana Villarreal PA-C 100 [place] [address] PCP - General Internal Medicine 11/03/24 documented as of this encounter
--- OUTSIDE RECORDS SUMMARY | 2025-07-15 09:45 | XMS_ITS | Encounter Summary ---
Author Organization [facility] Address [address] [place] [address] Care Team Providers Care Clinical Education Assistant Name Role Phone Ranjana Villarreal PA-C Primary Care Provi erika Encounter Details Date Type Department Care Team (Late st Contact Info) Description 04/01/2025 Scanned Document [address] [place] [address] Primary Care, Scan Social History [...] st Contact Info) Description 07/20/2025 Scanned Document [facility] Bone & Joint [place] at [address] [phone] Orthopedic Surgery, Scan 07/21/2025 2:00 PM EDT Appointment [facility] 150 [place] [address] Kemar Storey MD 499 [facility] [address] [place], [place] [address] 08/19/2025 8:00 AM EST Telemedicine Clinical Support [facility] Joint [place] Nutrition Services [address] [place] [address] 1st [place] [phone] Meredith Waters NP 31 [facility] [address] [address] 32 [place] [address] 09/03/2025 8:15 AM EST Office Visit [facility] 7 [facility] [address] [place] [address] Jared Rousseau MD 31 [facility] 100 [place] [address] 09/03/2025 1:00 PM EST Procedure visit [facility] Pulmonary [place] [address] [place] [phone] 10/06/2025 7:40 AM EST Office Visit [facility] Pulmonary [place] 100 [place] [address] Maria D Hinojosa, ROLLED HAM LACER 699 [place] [address] 10/08/2025 8:00 AM EST Office Visit [facility] [address] [place] [phone] Ranjana Villarreal PA-C [address] [place] [address] documented as of this encounter Visit Diagnoses Not on filedocumented in this encounter Care Teams Clinical Education Assistant Relationship Specialty Start Date End Date Ranjana Villarreal PA-C [address] [place] [address] PCP - General Internal Medicine 11/03/24 documented as of this encounter
--- OUTSIDE RECORDS SUMMARY | 2025-07-15 09:45 | XMS_ITS | Clinical Summary ---
Author Organization [facility] Address 5 [place] [address] Care Team Providers Care Ui Programmer Name Role Phone Unavailable Primary Care Provider [...]
--- OUTSIDE RECORDS SUMMARY | 2025-07-15 09:45 | XMS_ITS | Encounter Summary ---
Author Organization [facility] Address [address] [place] [address] Care Team Providers Care Visitor Services Specialist Name Role Phone Ranjana Villarreal PA-C Primary Care Provi erika Encounter Details Date Type Department Care Team (Late st Contact Info) Description 05/04/2025 Scanned Document [facility] 1290 [place] [address] Nephrology, Scan Social History Tobacco Use Types [...] Info) Description 07/20/2025 Scanned Document [facility] Bone & Joint [place] at [address] [phone] Orthopedic Surgery, Scan 07/21/2025 2:00 PM EDT Appointment [facility] 150 [place] [address] Kemar Storey MD 499 [facility] [address] [place], [place] [address] 08/19/2025 8:00 AM EST Telemedicine Clinical Support [facility] [place] Nutrition Services [address] [place] [address] 1st [place] [address] Meredith Waters NP 31 [facility] [address] [address] Reji Amos, DILIP 32 [place] [address] 09/03/2025 8:15 AM EST Office Visit [facility] 7 [facility] [address] [place] [address] Jared Rousseau MD [address] [address] 09/03/2025 1:00 PM EST Procedure visit [facility] Pulmonary [place] [address] [place] [phone] 10/06/2025 7:40 AM EST Office Visit [facility] Pulmonary [place] 100 [place] [phone] Maria D Hinojosa APRN 699 [place] [address] 10/08/2025 8:00 AM EST Office Visit [facility] [address] [place] [address] Ranjana Villarreal PA-C [address] [place] [address] documented as of this encounter Visit Diagnoses Not on filedocumented in this encounter Care Teams Visitor Services Specialist Relationship Specialty Start Date End Date Ranjana Villarreal PA-C [address] [place] [address] PCP - General Internal Medicine 11/03/24 documented as of this encounter
--- OUTSIDE RECORDS SUMMARY | 2025-07-15 09:45 | XMS_ITS | Encounter Summary ---
Author Organization [facility] Address [address] [place] [address] Care Team Providers Care Gear Tooth Lapping Machine Operator Name Role Phone Ranjana Villarreal PA-C Primary Care Provi erika Encounter Details Date Type Department Care Team ([facility] st Contact Info) Description 05/07/2025 Scanned Document [facility] [address] [phone] Jared Rousseau MD [address] [place] [address] Social History Tobacco Use Types Packs/Day Years [...] st Contact Info) Description 07/20/2025 Scanned Document [facility] Bone & Joint [place] at [address] [address] Orthopedic Surgery, Scan 07/21/2025 2:00 PM EDT Appointment [facility] 150 [place] [address] Kemar Storey MD [address] [place] [address] [address] [place], [place] [address] 08/19/2025 8:00 AM EST Telemedicine Clinical Support [facility] [place] Nutrition Services 32 [facility] 1st [place] [phone] Meredith Waters NP [address] [place] [address] [address] [address] 32 [place] [address] 09/03/2025 8:15 AM EST Office Visit [facility] 7 [facility] [address] [place] [address] Jared Rousseau MD 31 [facility] 100 [place] [address] 09/03/2025 1:00 PM EST Procedure visit [facility] Pulmonary [address] [phone] 10/06/2025 7:40 AM EST Office Visit [facility] Pulmonary [place] 100 [place] [phone] Maria D Hinojosa, HOME DEMONSTRATION AGENT 699 [place] [address] 10/08/2025 8:00 AM EST Office Visit [facility] 100 [facility] [address] [place] [address] Ranjana Villarreal PA-C 100 [place] [address] documented as of this encounter Visit Diagnoses Not on filedocumented in this encounter Care Teams Gear Tooth Lapping Machine Operator Relationship Specialty Start Date End Date Ranjana Villarreal PA-C 100 [place] [address] PCP - General Internal Medicine 11/03/24 documented as of this encounter
--- OUTSIDE RECORDS SUMMARY | 2025-07-15 09:45 | XMS_ITS | Encounter Summary ---
Author Organization [facility] Address [address] [place] [address] Care Team Providers Care Milking Machine Technician Name Role Phone Ranjana Villarreal PA-C Primary Care Provi erika Encounter Details Date Type Department Care Team (Late st Contact Info) Description 05/15/2025 Scanned Document [facility] 1290 [place] [address] Cardiology, Scan Social History Tobacco Use Types [...] Info) Description 07/20/2025 Scanned Document [facility] Bone & [facility] [place] at [address] [address] Orthopedic Surgery, Scan 07/21/2025 2:00 PM EDT Appointment [facility] 150 [place] [address] Kemar Storey MD [address] [facility] [address] [place], [place] [address] 08/19/2025 8:00 AM EST Telemedicine Clinical Support [facility] Bone [facility] [place] Nutrition Services [address] [place] [address] 1st [place] [address] Meredith Waters NP 31 [facility] [address] [address] Reji Amos, DILIP 32 [place] [address] 09/03/2025 8:15 AM EST Office Visit [facility] 7 [facility] [address] [place] [address] Jared Rousseau MD [address] [facility] 100 [place] [address] 09/03/2025 1:00 PM EST Procedure visit [facility] Pulmonary [place] [address] [place] [phone] 10/06/2025 7:40 AM EST Office Visit [facility] Pulmonary [place] 100 [place] [phone] Maria D Hinojosa APRN 699 [place] [address] 10/08/2025 8:00 AM EST Office [facility] [address] [place] [address] Ranjana Villarreal PA-C [address] [place] [address] documented as of this encounter Visit Diagnoses Not on filedocumented in this encounter Care Teams Milking Machine Technician Relationship Specialty Start Date End Date Ranjana Villarreal PA-C [address] [place] [address] PCP - General Internal Medicine 11/03/24 documented as of this encounter
--- OUTSIDE RECORDS SUMMARY | 2025-07-15 09:45 | XMS_ITS | Encounter Summary ---
Author Organization [facility] Address 100 [place] [address] Care Team Providers Care Crowning Inspector Name Role Phone Ranjana Villarrael PA-C Primary Care Provi erika Encounter Details Date Type Department Care Team (Late st Contact Info) Description 12/25/2024 Scanned Document [facility] Nephrology, Scan Social History [...] Info) Description 07/20/2025 Scanned Document [facility] & Joint [place] at [address] [phone] Orthopedic Surgery, Scan 07/21/2025 2:00 PM EDT Appointment [facility] 150 [place] [address] Kemar Storey MD [address] [place] [address] [address] [place] [address] 08/19/2025 8:00 AM EST Telemedicine Clinical Support [facility] [place] Nutrition Services [address] [place] [phone] Meredith Waters NP [address] [place] [address] 204[place] [address] Reji Amos, DILIP 32 [place] [address] 09/03/2025 8:15 AM EST Office [facility] 7 [facility] [address] [place] [address] Jared Rousseau MD [address] [place] [address] 09/03/2025 1:00 PM EST Procedure visit [facility] Pulmonary [place] 699 [place] [phone] 10/06/2025 7:40 AM EST Office Visit [facility] Pulmonary [address] [phone] Maria D Hinojosa APRN 699 [place] [address] 10/08/2025 8:00 AM EST Office Visit [address] 101 [place] [address] Ranjana Villarreal PA-C 100 [place] [address] documented as of this encounter Visit Diagnoses Not on filedocumented in this encounter Care Teams Crowning Inspector Relationship Specialty Start Date End Date Ranjana Villarreal PA-C 100 [place] [address] PCP - General Internal Medicine 11/03/24 documented as of this encounter
--- OUTSIDE RECORDS SUMMARY | 2025-07-15 09:45 | XMS_ITS | Clinical Summary ---
Author Organization [facility] Address [address] [place] [address] Phone Care Team Providers Care Certified Cytotechnologist Name Role Phone Joel Alegria NP Primary Care Provider Immunizations Immunization Administration Dates Next Due Moderna SARS-CoV-2 COVID-19, mRNA, LNP-S, preservative free 12/29/2020,12/01/2020 Surgical History Surgery Date Site/Laterality Comments CHOLECYSTECTOMY 2000 PROCEDURE: HISTORICAL CHOLECYSTECTOMY ENDOMETRIAL ABLATION PROCEDURE: RI ENDOMETRIAL ABLTJ THERMAL W/O HYSTEROSCOPIC GUID; COMMENT: done twice OTHER SURGICAL HISTORY PROCEDURE: ---- OTHER ----; COMMENT: skin graft for diabetic ulcer SECTION 03/1997 PROCEDURE: HISTORICAL DELIVERY COLONOSCOPY 06/18/2009 PROCEDURE: HISTORICAL COLONOSCOPY; COMMENT: Normal to cecum, repeat 10 years (small grade 2 internal hemorrhoids) UPPER GASTROINTESTINAL ENDOSCOPY 11/26/2001 PROCEDURE: UPPER GI ENDOSCOPY/EXAM; COMMENT: Normal, iron deficiency anemia most likely r/t a pad cutter source. OTHER SURGICAL HISTORY 2004 PROCEDURE: HISTORICAL [...] ED evaluation 06/29/18, referred to Dr. Ewing, [facility] wound care Managed with IV abx via PICC line through ID, eval with Dr. Harris for skin graft 08/2018 Anxiety 09/17/2018 DX:Anxiety; COMM ENT: Panic attacks Diabetic neuropathy ([facility] V24, [facility] V28) 09/26/2018 DX:Diabetic neuropathy ([facility]) Umbilical hernia 09/26/2018 DX:Umbilical he rnia Type 2 diabetes mellitus wit h neurological manifestations ([facility] V24, [facility] V28) 09/26/2018 DX:Type 2 diabetes mellitus with neurological manifestations ([facility]); COMMENT: Endo consult with Dr. Garces Type 2 diabetes mellitus wit h renal manifestations ([facility] V24, [facility] V28) 01/15/2019 DX:Type 2 diabetes mellitus with renal manifestations ([facility]) Chronic gastric ulcer DX:Chronic gastric ulcer Depression DX:Depression ALIYAH on CPAP 01/15/2019 DX:ALIYAH on CPAP GERD (gastroesophageal reflux disease) 01/15/2019 DX:GERD (gastroesophageal reflux disease) Type 2 diabetes mellitus wit h vascular disease ([facility]24, [facility] V28) 10/14/2012 DX:Type 2 diabetes mellitus with vascular disease ([facility]) IBS (irritable bowel syndrome) 01/15/2019 D X:IBS (irritable bowel syndrome) Carpal tunnel syndrome of left wrist 01/15/2019 DX:Carpal tunnel syndrome of left wrist Amos's esophagus 03/23/2022 DX:Amos's esophagus Stokes grade A esophagitis 03/23/2022 DX:Stokes grade A esophagitis Diabetes mellitus ([facility] V 24, [facility] V28) DX:Diabetes mellitus ([facility]) Hypertension DX:Hypertension Hypercholesterolemia DX:Hypercho lesterolemia Anxiety DX:Anxiety [...] Health Maintenance Due Date Last Done Comments Colorectal Cancer Screening: Colonoscopy 1966 Diabetes: Annual Foot Exam 1976 Diabetes: Annual Retina Eye Exam 1976 Hepatitis B Vaccines (1 of 3 - 19+ 3-dose series) 1985 Pneumococcal Vaccine: 50+ Years (1 of 1 - PCV) 2016 RSV Immunization Adult Patients (1 - Risk 50-74 years 1-dose series) 2016 Zoster Vaccines (1 of 2) 2016 HIV Screening 09/09/2022 Hepatitis C Screening 09/09/2022 [...] Signed Date: 08/05/2024 08:54 ET Workstation ID: [id number] Transcribed By: Self Edit Transcribed Date: 08/05/2024 08:44 ET Narrative 08/05/2024 8:54 AM EST EXAM: SCREENING MAMMOGRAPHY, BILATERAL HISTORY: SCREENING. Mother diagnosed with breast cancer age 56. COMPARISON: 03/09/2023, 12/20/2021, 09/10/2020 TECHNIQUE: Synthesized CC and MLO projections of each breast. Tomosynthesis of each breast in the CC and MLO projections. ADDITIONAL IMAGING: None Computer-aided detection was employed with the [employer] AI 3-D. TISSUE DENSITY: There are scattered [...] None Computer-aided detection was employed with the [employer] AI 3-D. TISSUE DENSITY: There are scattered [...] Signed Date: 08/05/2024 08:54 ET Workstation ID: [id number] Transcribed By: Self Edit Transcribed Date: 08/05/2024 08:44 ET us Self Referral Sppl IMG BI PROCEDURES Final Resul t from Last 3 Months or Most Recently Relevant to Health Maintenance [place] [address] [place] [address] ([facility]) Care Teams Certified Cytotechnologist Relationship Specialty Start Date End Date Joel Alegria NP [address] [place], [place] PCP - General Family Medicine 08/01/24
--- OUTSIDE RECORDS SUMMARY | 2025-07-15 09:45 | XMS_ITS | Encounter Summary ---
Author Organization [facility] Address 100 [place] [address] Care Team Providers Care Prototype Technician Name Role Phone Ranjana Villarreal PA-C Primary Care Provi erika Encounter Details Date Type Department Care Team (Late st Contact Info) Description 03/19/2025 Scanned Document [facility] 12[address] [place] [address] Pulmonary, Scan Social History Tobacco Use Types [...] Contact Info) Description 07/20/2025 Scanned Document [facility] [place] at [address] [address] Orthopedic Surgery, Scan 07/21/2025 2:00 PM EDT Appointment [facility] 150 [place] [address] Kemar Storey MD [address] [facility] [address] [place], [place] [address] 08/19/2025 8:00 AM EST Telemedicine Clinical Support [facility] [place] Nutrition Services [address] [place] [address] 1[address] [place] [address] Meredith Waters NP 31 [facility] [address] [address] Reji Amos, DILIP 32 [place] [address] 09/03/2025 8:15 AM EST Office Visit [facility] 7 [facility] [address] [place] [address] Jared Rousseau MD 31 [facility] 100 [place] [address] 09/03/2025 1:00 PM EST Procedure visit [facility] Pulmonary [place] [address] [place] [phone] 10/06/2025 7:40 AM EST Office Visit [facility] Pulmonary [place] 100 [place] [phone] Maria D Hinojosa APRN 699 [place] [address] 10/08/2025 8:00 AM EST Office Visit [facility] [address] [place] [phone] Ranjana Villarreal PA-C [address] [place] [address] documented as of this encounter Visit Diagnoses Not on filedocumented in this encounter Care Teams Prototype Technician Relationship Specialty Start Date End Date Ranjana Villarreal PA-C [address] [place] [address] PCP - General Internal Medicine 11/03/24 documented as of this encounter
--- OUTSIDE RECORDS SUMMARY | 2025-07-15 09:46 | XMS_ITS | Encounter Summary ---
Author Organization Formerly [facility] Address [address] [place] [address] Care Team Providers Care Reconciliation Accountant Name Role Phone Ranjana Villarreal PA-C Primary Care Provi erika Encounter Details Date Type Department Care Team (Late st Contact Info) Description 04/07/2025 Scanned Document [facility] [address] [place] [address] Nephrology, Scan Social History Tobacco Use Types [...] Info) Description 07/20/2025 Scanned Document [facility] [place] at [address] [phone] Orthopedic Surgery, Scan 07/21/2025 2:00 PM EDT Appointment [facility] [address] [place] [address] Kemar Storey MD [address] [facility] [address] [place], [place] [address] 08/19/2025 8:00 AM EST Telemedicine Clinical Support [facility] [place] [facility] [address] [place] [address] [address] [place] [address] Meredith Waters NP 31 [facility] [address] [address] Reji Amos, DILIP [address] [place] [address] 09/03/2025 8:15 AM EST Office Visit [facility] [address] [facility] [address] [place] [address] Jared Rousseau MD [address] [address] 09/03/2025 1:00 PM EST Procedure visit [facility] [place] [address] [place] [phone] 10/06/2025 7:40 AM EST Office Visit [facility] [place] 100 [place] [phone] Maria D Hinojosa APRN [address] [place] [address] 10/08/2025 8:00 AM EST Office Visit [facility] [address] [place] [address] Ranjana Villarreal PA-C [address] [place] [address] documented as of this encounter Visit Diagnoses Not on filedocumented in this encounter Care Teams Reconciliation Accountant Relationship Specialty Start Date End Date Ranjana Villarreal PA-C [address] [place] [address] PCP - General Internal Medicine 11/03/24 documented as of this encounter
--- OUTSIDE RECORDS SUMMARY | 2025-07-15 09:46 | XMS_ITS | Encounter Summary ---
Author Organization [facility] Address [address] [place] [address] Care Team Providers Care Escort Vehicle Driver Name Role Phone Ranjana Villarreal PA-C Primary Care Provi erika Encounter Details Date Type Department Care Team (Late st Contact Info) Description 11/20/2024 Scanned Document [address] [place] [address] Primary Care, Scan Social History [...] st Contact Info) Description 07/20/2025 Scanned Document [facility] [place] at [address] [address] Orthopedic Surgery, Scan 07/21/2025 2:00 PM EDT Appointment [facility] [address] [place] [address] Kemar Storey MD [address] [facility] [address] [place] [address] 08/19/2025 8:00 AM EST Telemedicine Clinical Support [facility] [place] [facility] [address] [place] [address] [address] [place] [address] Meredith Waters NP 31 [facility] [address] [address] Reji Amos, DILIP [address] [place] [address] 09/03/2025 8:15 AM EST Office Visit [facility] [address] [facility] [address] [place] [address] Jared Rousseau MD 31 [facility] [address] [place] [address] 09/03/2025 1:00 PM EST Procedure visit [facility] [place] [address] [place] [phone] 10/06/2025 7:40 AM EST Office Visit [facility] [place] [address] [place] [phone] Maria D Hinojosa APRN [address] [place] [address] 10/08/2025 8:00 AM EST Office Visit [facility] [address] [place] [address] Ranjana Villarreal PA-C [address] [place] [address] documented as of this encounter Visit Diagnoses Not on filedocumented in this encounter Care Teams Escort Vehicle Driver Relationship Specialty Start Date End Date Ranjana Villarreal PA-C [address] [place] [place] [address] PCP - General Internal Medicine 11/03/24 documented as of this encounter
--- OUTSIDE RECORDS SUMMARY | 2025-07-15 09:46 | XMS_ITS | Continuity of Care Document ---
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 04/24/2025 Novolog Vyvgxjr681Xxbv/ML Solution Pen-Inject inject 10 subcutaneously units 3 times a day before meals 30ml E11.42 Susan Bui M.D. 06/30/2024 Baqsimi One Iztd1kr/Dose Powder spray into nostril as needed for low sugar reaction 1units Susan Bui M.D. 02/14/2024 Lantus Rojmtpbe669Bnkp/ML Solution Pen-Inject inject 50 units daily as directed 45ml E11.42 Susan Bui M.D. 10/26/2023 Lfstsznwy09ls Tablets Take 1 Tablet By Mouth Every Day For 30 Days Lynnette Cardona MD Atorvastatin Sthukey71xm Tablets 1 by mouth every day Unknown Amlodipine Qvccdvdi7zs Tablets Take 1 Tablet (5 MG Total) By Mouth Daily. Unknown Repatha Cqwesrzcu508km/ml Solution Auto-Inject inject 1 syringe under the skin every 2 weeks Unknown Aspirin 8181mg Tablets DR 1 by mouth every day Susan Bui M.D. Hydroxyzine VNM32bc Tablets Take 1 Tablet By Mouth Every Day as Needed Unknown Dexcom G6 SensorMisc use 1 sensor every 10 days 9units E11.42 Susan Bui M.D. Dexcom G6 SensorMisc Please See Attached For Detailed Directions Unknown Bqnaanwabb331yb Capsules Take 2 Capsule By Mouth Three Times A Day Unknown Dexcom G6 TransmitterMisc To Use With Sensors DX E11.42 1units E11.42 Susan Bui M.D. Pantoprazole Ahioue82ye Tablets DR Take 1 Tablet By Mouth Every Morning (Before Breakfast) For 360 Days. Unknown Albuterol Sulfate LHB549(90Base) mcg/Act Aerosol Take 2 Puffs By Mouth Every 4 Hours as Needed For Wheeze Unknown Ipratropium Bromide0.06% Solution Administer 2 Sprays Into Each Nostril Every 6 Hours as Needed For Rhinitis. Unknown Adoulkcqtp22xh Tablets Take 1 Tablet By Mouth Every Day Unknown Hyoscyamine Sulfate0.125mg Tablets Take 1 Tablet By Mouth 4 Times Daily as Needed For Cramping Or Diarrhea For Up T Unknown Basaglar Waszvmr885Cnaw/ML Solution Pen-Inject Inject 55 Units Into The Skin AT Bedtime 60ml E11.42 Susan Bui M.D. Trazodone AJB730zg Tablets Take 1 Tablet By Mouth Everyday [...] Inhouse Hemoglobin A1c 6.9% Gad65 Autoantibodies 08/15/2023 [facility] Gad65 Autoantibodies <5.0 1 Islet Cell Antibody 512 08/15/2023 [facility] Islet Cell Antibody 512 <7.5 2 Insulin Antibody 08/15/2023 [facility] Insulin Antibody 12 High 3 1 Reference range: 0.0 to 5.0 Unit: U/mL Test performed at [address] [address] 2 Unit: U/mL (NOTE) Reference Range: <7.5 Negative > or EQ 7.5 Positive Test performed by [facility], [address] [place] [address] 3 Unit: uU/mL (NOTE) This test is also known as insulin autoantibody or IAA. This test was developed and its performance characteristics determined by [facility]. It has not been cleared or approved by the Food and Drug Administration. Reference Range: <5.0 Negative > or EQ 5.0 Positive Test performed by [facility], [address] [facility], [place] [address] Procedures Date Code Description Status 08/10/2023 38764 Collection Of Venous Blood B y Venipuncture [...] Bui M.D. Plan of Treatment Future Appointment(s):* 07/17/2025 8:40 am - Holly Angel CNP at Main Office * 07/31/2025 2:15 pm - Susan Bui M.D. at Main Office 08/10/2023 - Susan Bui M.D.* E11.42 Type 2 diabetes mellitus with diabetic polyneuropathy Functional Status Description No Information Available Mental Status Description No Information Available Referrals Refer to Reason for Referral Status Appt Chip Meyer MD POSSIBLE SEIZURES Closed [address] [place] [address] [address] [place], [place] [id number] [phone]
--- OUTSIDE RECORDS SUMMARY | 2025-07-15 09:46 | XMS_ITS | Clinical Summary ---
Author Organization [facility] Address [address] [place] [address] Care Team Providers Care Baling Press Operator Name Role Phone Unavailable Primary Care [...] Personal/Family Self 1965 A [address] [place] [address]
--- OUTSIDE RECORDS SUMMARY | 2025-07-15 09:46 | XMS_ITS | Clinical Summary ---
Author Organization [facility] Address [address] [place] [address] Care Team Providers Care Clinical Application Consultant Name Role Phone Britt Villarreal PA-C Primary [...] Misc USE 1 SENSOR EVERY 10 DAYS 06/25/20 [...] hours) as needed for mild pain. Active SUPPLY DME MISCIndications: Morbid obesity (HCC),Back pain, unspecified back location, unspecified back pain laterality, unspecified chronicity,Pain in left ankle and joints of left foot,Pain in both knees, unspecified chronicity,Ankle instability, unspecified laterality Walker with seat & breaks [employer] [address] [place] [address] 1 each 04/08/20 25 Active methocarbamol (ROBAXIN) 750 MG tabletIndication s:Back pain, unspecified back location, unspecified back pain laterality, unspecified chronicity Take 1 tablet (750 mg total) by mouth 4 (four) times a day as needed for muscle spasms. 40 tablet 06/05/20 25 Active meloxicam (MOBIC) 7.5 MG tabletIndication s:Back pain, unspecified back location, unspecified back pain laterality, unspecified chronicity Take 1 tablet (7.5 mg total) by mouth daily. 30 tablet 03/19/20 25 025 Discontin ued(Med List Clean-up/ Old Med - No E-Cancel/ No AVS) lisinopril (PRINIVIL,ZeSTRI L) 10 MG tabletIndication s:Primary hypertension Take 1 tablet (10 mg total) by mouth nightly. 90 tablet 1 03/19/20 25 025 Discontin ued(Med List Clean-up/ Old Med - No E-Cancel/ No AVS) phenazopyridine (PYRIDIUM) 200 MG tabletIndication s:Urinary tract infection with hematuria, site unspecified Take 1 tablet (200 mg total) by mouth 3 (three) times a day in the morning, mid-day and early evening. 6 tablet 05/27/20 25 025 Discontin ued(Med List Clean-up/ Old Med - No E-Cancel/ No AVS) nitrofurantoin monohydrate (MACROBID) 100 MG capsuleIndicatio ns:Urinary tract infection with hematuria, site unspecified Take 1 capsule (100 mg total) by mouth 2 (two) times a day with meals. Dispense generic equivalent of MACROBID 14 capsule 05/27/20 25 025 Discontin ued(Med List Clean-up/ Old Med [...] Encounters Date Type Department Care Team Description 07/13/2025 8:00 AM EDT Telemedicine Clinical Support [facility] [place] [facility] 32 [facility] 1st [place] [phone] Meredith Waters NP Barrett, Christopher, RD Type 2 diabetes mellitus without complication, with long-term current use of insulin (HCC) (Primary Dx); Morbid obesity (HCC) 07/13/2025 Travel 07/02/2025 8:45 AM EDT Consult [facility] [address] [address] Jared Rousseau MD Hill, Brian, APRN Spondylosis of lumbosacral region without myelopathy or radiculopathy (Primary Dx) 06/19/2025 Scanned Document [facility] [address] [place] [address] Maria D Hinojosa APRN 06/19/2025 Scanned Document [facility] [address] [place] [address] Maria D Hinojosa APRN 06/18/2025 11:20 AM EDT Consult [facility] [address] [phone] Maria D Hinojosa APRN Snoring (Primary Dx); Fatigue, unspecified type; Non-restorative sleep; Witnessed episode of apnea; Upper airway resistance syndrome; Frequent nocturnal awakening 06/18/2025 Travel 06/17/2025 Telephone [facility] [address] [phone] Maria D Hinojosa APRN 06/17/2025 Scanned Document [facility] Nephrology, Scan 06/12/2025 12:30 PM EDT Treatment [facility] [address] [place] [address] Rubi Woo, PT Acute low back pain with bilateral sciatica, unspecified back pain laterality (Primary Dx) 06/10/2025 8:00 AM EDT Telemedicine Clinical Support [facility] [place] [facility] [address] [facility] 1st [place] [phone] Meredith Waters, Reji Salinas RD Type 2 diabetes mellitus without complication, with long-term current use of insulin (HCC) (Primary Dx); Morbid obesity (HCC) 06/10/2025 Travel 06/09/2025 1:45 PM EDT Office [facility] [address] [address] Marc Reynolds MD Primary osteoarthritis of right knee (Primary Dx) 06/08/2025 Orders Only [address] [address] Primary Care, Scan 06/05/2025 Refill [facility] [address] [facility] [address] [place] [address] Jared Rousseau MD Back pain, unspecified back location, unspecified back pain laterality, unspecified chronicity 06/05/2025 Orders Only [facility][note 2] [address] [place] [address] Primary Care, Scan 06/05/2025 Scanned Document [address] [address] Neurology, Scan 06/04/2025 8:15 AM EDT Office [facility] [address] [place] [address] Jared Rousseau MD Back pain, unspecified back location, unspecified back pain laterality, unspecified chronicity (Primary Dx) 05/29/2025 12:30 PM EDT [facility] [address] [address] Rubi Woo, PT Acute low back pain with bilateral sciatica, unspecified back pain laterality (Primary Dx) 05/27/2025 12:40 PM EDT Office Visit [facility] [place] [address] [place] [address] David Land MD Kelly, Martin J, PAConsueloC Urinary tract infection with hematuria, site unspecified (Primary Dx); Urinary tract infection symptoms 05/27/2025 Travel 05/27/2025 Telephone [facility] [address] [place] [address] Britt Villarreal PA-C Blood Pressure Check 05/22/2025 1:00 PM EDT [facility] [address] [address] Rubi Woo, PT Acute low back pain with bilateral sciatica, unspecified back pain laterality (Primary Dx) 05/15/2025 12:30 PM EDT Treatment [facility] [address] [address] Rubi Woo, PT Acute low back pain with bilateral sciatica, unspecified back pain laterality (Primary Dx) 05/15/2025 Scanned Document [facility] [address] [place] [address] Cardiology, Scan 05/13/2025 7:30 AM EDT Treatment [facility] [address] [address] Rubi Woo, PT Acute low back pain with bilateral sciatica, unspecified back pain laterality (Primary Dx) 05/08/2025 2:00 PM EDT [facility] [address] [address] Rubi Woo, PT Acute low back pain with bilateral sciatica, unspecified back pain laterality (Primary Dx) 05/07/2025 8:00 AM EDT Office [facility] [address] [place] [address] Jared Rousseau MD Back pain, unspecified back location, unspecified back pain laterality, unspecified chronicity (Primary Dx) 05/07/2025 Scanned Document [facility] [address] [place] [address] Jared Rousseau MD 05/06/2025 8:00 AM EDT Telemedicine Clinical Support [facility] [place] [facility] [address] [facility] 1st [place] [address] Meredith Waters NP Barrett, Christopher, RD Type 2 diabetes mellitus without complication, with long-term current use of insulin (HCC) (Primary Dx); Morbid obesity (HCC) 05/06/2025 Telephone [facility] [place] [address] [facility] [address] [place] [phone] Basia Brandt, ADMINISTRATIVE JUDGE 05/06/2025 Travel 05/04/2025 Scanned Document [facility] [address] [place] [address] Nephrology, Scan 05/01/2025 1:00 PM EDT Treatment [facility] [address] [place] [address] Rubi Woo, PT Acute low back pain with bilateral sciatica, unspecified back pain laterality (Primary Dx) 04/24/2025 7:00 AM EDT Treatment [facility] [address] [place] [address] Rubi Woo, PT Acute low back pain with bilateral sciatica, unspecified back pain laterality (Primary Dx) 04/24/2025 Refill [facility] [address] [place] [address] Jared Rousseau MD Back pain, unspecified back location, unspecified back pain laterality, unspecified chronicity 04/22/2025 11:30 AM EDT Treatment [facility] [address] [address] Rubi Woo, PT Acute low back pain with bilateral sciatica, unspecified back pain laterality (Primary Dx) 04/21/2025 3:40 PM EDT Ancillary Procedure [place] [address] 04/21/2025 3:15 PM EDT [place] [address] Marc Reynolds MD Primary osteoarthritis of both knees (Primary Dx) 04/17/2025 11:30 AM EDT Treatment [facility] [address] [address] Rubi Woo PT Acute low back pain with bilateral sciatica, unspecified back pain laterality (Primary Dx) from Last 3 Months Social [...] Pulse 68 07/02/2025 9:01 AM EDT Temperature 36.6 C (97.8 F) 06/18/2025 11:23 AM EDT Respiratory Rate 15 07/02/2025 9:01 AM EDT Oxygen Saturation 100% 06/18/2025 11:23 AM EDT Inhaled Oxygen Concentration - - Weight 122 kg (269 lb) 07/13/2025 8:23 AM EDT Height 165.1 cm (5' 5 ) 07/02/2025 9:01 AM EDT Body Mass Index 44.76 07/02/2025 9:01 AM EDT Plan of Treatment Upcoming Encounters Date Type Department Care Team (Late st Contact Info) Description 07/20/2025 Scanned Document [facility] [place] at [address] [phone] Orthopedic Surgery, Scan 07/21/2025 2:00 PM EDT Appointment [facility] [address] [place] [address] Kemar Storey MD [address] [place] [address] [address] [place], [place] [address] 08/19/2025 8:00 AM EST Telemedicine Clinical Support [facility] [place] [facility] 32 [facility] 1st [place] [phone] Meredith Waters NP [address] [place] [address] [address] [address] [place], [place] [phone] 09/03/2025 8:15 AM EST [facility] [address] [place], [place] [address] Jared Rousseau MD [address] [place] [address] [address] [place] [address] 09/03/2025 1:00 PM EST Procedure visit [facility] [place] [address] [place] [phone] 10/06/2025 7:40 AM EST Office Visit [facility] [place] [address] [place] [address] Maria D Hinojosa, ADMINISTRATIVE JUDGE [address] [place] [address] 10/08/2025 8:00 AM EST Office Visit [facility] 100 [facility] [address] [place] [phone] Britt Villarreal PA-C [address] [place] [address] Health Maintenance Due Date Last Done Comments Hepatitis C Virus Screening 1966 Foot Exam 1976 Ophthalmology Exam 1976 HIV Screening 1979 Microalbumin/Creatinine Rati o Urine 1984 Physical 1984 DTaP/Tdap/Td Vaccines (1 - Tdap) 1985 Hepatitis B Vaccines (1 of 3 - 19+ 3-dose series) 1985 Pneumococcal Vaccines 50+ (1 of 2 - PCV) 1985 Pap Smear (Ages 21-65) 1987 Mammogram 2006 Colonoscopy 2011 RSV Vaccine 50 years and old er and Patients (1 - Risk 50-74 years 1-dose series) 2016 Zoster (Shingles) Vaccine (1 of 2) 2016 Hemoglobin A1C 07/08/2024 01/07/2024 Influenza Vaccine 05/01/2025 07/18/2023, , 08/01/2016, Additional history exists Lipid Panel 01/29/2026 01/29/2025 Creatinine with GFR 04/01/2026 04/01/2025, 04/01/2025, 01/29/2025, Additional history exists COVID-19 Vaccine Completed 06/13/2024, 01/2021, 12/29/2020, Additional history exists Medical Devices Implanted Type Area Mottle Lay Up Operator Device Identifier Shelf Expiration Date Model / Serial / Lot Nail/Dayron Nail/Dayron Foot Description:Charcot's and pl ate Procedures Procedure Name Priority Date/Time Associated Diagnosis Comments AMB REFERRAL TO PHYSICAL MEDICINE REHAB Routine 07/02/2025 1:06 PM EDT Back pain, unspecified back location, unspecified back pain laterality, unspecified chronicity LAB RESULT Routine 06/05/2025 12:46 PM EDT [...] PM EDT Primary osteoarthritis of both knees ID ARTHROCENTESIS ASPIR&/INJ MAJOR JT/BURSA W/O US Routine 04/21/2025 3:15 PM EDT Primary osteoarthritis of both knees ID ARTHROCENTESIS ASPIR&/INJ MAJOR JT/BURSA W/O US Routine 04/21/2025 3:15 PM EDT Primary osteoarthritis of both knees BASIC METABOLIC PANEL Routine 04/01/2025 11:46 AM EDT Primary hypertension LIPID PANEL WITH NONHDL Routine 01/29/2025 1:22 PM EDT Type 2 diabetes mellitus without complication, with long-term current use of insulin (HCC) Primary hypertension Other hyperlipidemia Anemia, unspecified type Bilateral leg edema HEMOGLOBIN A1C WITH ESTIMATED AVERAGE GLUCOSE STAT 01/07/2024 4:32 AM EDT from Last 3 Months or Most Recently Relevant to Health Maintenance Results * Amb Referral to Physical Medicine Rehab (07/02/2025 1:06 PM EDT) us Jared Rousseau MD OUTPATIENT REFERRAL ORDERABLES F inal Result * LAB RESULT (06/05/2025 12:46 PM EDT) Only the most recent of2 resultswithin the time period is included. us Scan Primary Care HX AMB PROCEDURES Edited Resul t - Final * (ABNORMAL) POCT Urinalysis Dipstick, Automated (05/27/2025 1:06 PM EDT) Source, UA Clean Catch Color, UA [place](A) Yellow & Clear, Yellow Comment:pt took azo [...] Esterase, UA Large (+++)(A) Negative Lot Number [id number] Sole Layer Pass Pass Urine 05/27/2025 1:06 PM EDT us Sudarshan Kevin PA-C POINT OF CARE TEST ORDERABLE S Final Result * Urine Culture (05/27/2025 1:06 PM EDT) Culture SEE NOTE [facility] Comment: CULTURE, URINE, ROUTINE Micro Number: [id number] Test Status: Final Specimen Source: Urine Specimen Quality: Adequate Result: No Growth 05/27/2025 1:06 PM EDT 05/28/2025 10:45 PM EDT us Sudarshan Kevin PA-C LAB AMB MICRO ORDERABLES Fin al Result [facility] [address] [place] [phone] * MRI Lumbar spine w/o contrast (05/26/2025 [...] roots within the lateral recesses and causes ubpm-kz-bnyyfqdn bilateral neural foraminal stenosis. 5. L3-L4 broad-based disc bulge with bilateral facet arthropathy and thickening of the ligamentum flavum which encroaches upon the traversing bilateral L4 nerve roots within the lateral recesses and causes rpfo-ii-zkwpysxu right as well as moderate left neural foraminal stenosis. 6. L4-L5 shallow broad-based disc bulge with bilateral facet arthropathy causing mild left neural foraminal stenosis. Electronically signed by: Stephen Muhammad MD 05/28/2025 08:49 AM EDT Thank you for referring your patient to us, Stephen Muhammad MD [phone] (Electronically Signed - 05/28/2025 08:49) Copy: [facility] [address] [facility] [address] [place] [address] PATIENT , Narrative 05/28/2025 8:49 [...] roots within the lateral recesses and causes pvny-qw-zizbjhap bilateral neural foraminal stenosis. L3-L4: Broad-based disc bulge with bilateral facet arthropathy and mild thickening of the ligamentum flavum which encroaches upon the traversing bilateral L4 nerve roots within the lateral recesses and causes xvyf-tz-jcfkkwiy right as well as moderate left neural [...] nerve roots within thelateral recesses and causes tkpe-ow-irmbrzfy bilateral neural foraminalstenosis. L3-L4: Broad-based disc bulge with bilateral facet arthropathy and mildthickening of the ligamentum flavum which encroaches upon the traversingbilateral L4 nerve roots within the lateral recesses and kijhoaeuuu-ht-znccxvnj right as well as moderate left neural [...] nerve roots within the lateralrecesses and causes wxaa-vc-dcsnuctt bilateral neural foraminalstenosis. 5. L3-L4 broad-based disc bulge with bilateral facet arthropathy andthickening of the ligamentum flavum which encroaches upon the traversingbilateral L4 nerve roots within the lateral recesses and nwihhbmuns-po-hfzgoizf right as well as moderate left neural foraminal stenosis. 6. L4-L5 shallow broad-based disc bulge with bilateral facet arthropathycausing mild left neural foraminal stenosis. Electronically signed by: Stephen Muhammad MD 05/28/2025 08:49 AM EDT RPWorkstation: [id number] Thank you for referring your patient to us, Stephen Muhammad MD [phone] (Electronically Signed - 05/28/2025 08:49) Copy: [facility] [address] [facility] [address] [place] [address] PATIENT , us Jared Rousseau MD IMG MRI ORDERABLES Final Result * XR Knee 4+ views-Left (04/21/2025 3:56 PM EDT) Narrative OA - 04/21/2025 3:56 PM EDT This exam was performed in office at [facility] and images reviewed by orthopedic provider. Any findings are documented within ambulatory encounter note on date of service. Marc Reynolds MD IMG DIAGNOSTIC IMAGING O RDERABLES Final Result [facility] * ID ARTHROCENTESIS ASPIR&/INJ MAJOR JT/BURSA W/O US (04/21/2025 [...] MD PROCEDURE/MINOR SURGICAL ORDERABLES Final Result * ID ARTHROCENTESIS ASPIR&/INJ MAJOR JT/BURSA W/O US (04/21/2025 [...] EDT) Glucose 399(H) 65 - 99 mg/dL [facility] Comment: Verified by repeat analysis. Fasting reference interval For someone without known diabetes, a glucose value >125 mg/dL indicates that they may have diabetes and this should be confirmed with a follow-up test. Blood Urea Nitrogen (BUN) 39(H) 7 - 25 mg/dL [facility] Creatinine 2.59(H) 0.50 - 1.03 mg/dL [facility] Creatinine w/ eGFR 21(L) > OR = 60 mL/min/1.7 3m2 [facility] BUN/Creatinine Ratio 15 6 - 22 (calc) [facility] Sodium 128(L) 135 - 146 mmol/L [facility] Potassium 5.1 3.5 - 5.3 mmol/L [facility] Chloride 90(L) 98 - 110 mmol/L [facility] CO2 29 20 - 32 mmol/L [facility] Calcium 9.6 8.6 - 10.4 mg/dL [facility] Blood Blood specimen / Unknown 04/01/2025 11:46 AM EDT 04/01/2025 11:46 AM EDT us Britt Villarreal PA-C LAB BLOOD ORDERABLE S Final Result Performing Organization Address [facility] Co de Phone Number [facility] [address] [place] [address] * (ABNORMAL) Lipid panel with nonHDL (01/29/2025 1:22 PM EDT) Cholesterol, Total 124 <200 mg/dL [facility] Cholesterol, HDL 47(L) > OR = 50 mg/dL [facility] Triglycerides 153(H) <150 mg/dL [facility] LDL Cholesterol 53 mg/dL (calc) [facility] Comment: Reference range: <100 Desirable range <100 mg/dL for primary prevention; <70 mg/dL for patients with CHD or diabetic patients with > or = 2 CHD risk factors. LDL-C is now calculated using the Sudarshan-Maryan calculation, which is a validated novel method providing better accuracy than the Friedewald equation in the estimation of LDL-C. Sudarshan SS et al. BRITTNEE. 2013;310(19): 3412-7001 (http://education.SEVENROOMS/faq/NBK354) Cholesterol/HDL Ratio 2.6 <5.0 (calc) [facility] Non HDL Chol. (LDL+VLDL) 77 <130 mg/dL (calc) [facility] Comment: For patients with diabetes plus 1 [...] ORDERABLE S Final Result Performing Organization Address [facility]/ZIP Co de Phone Number [facility] [address] [place] [phone] * (ABNORMAL) Hemoglobin A1c with Estimated Average Glucose (01/07/2024 4:32 AM EDT) Hemoglobin A1C 7.3(H) <5.7 % 01/07/2024 5:20 AM EDT [facility] Comment: A1c% Interpretation 5.7 - 6.0 Increase [...] MD LAB BLOOD ORDERAB[place] [address], [address] [address] from Last 3 Months or Most Recently Relevant to Health Maintenance Insurance [facility] BLUE CROSS OUT [facility] BLUE [facility]UE [facility] Advance Directives * Full Code (Latest Code Status on File) Date Activated Date Inactivated Comments 01/06/2024 5:40 PM 02/27/2025 8:16 AM Question Answer Comments Decision Thoroughly Discussed with: Patient * Full Code Date Activated Date Inactivated Comments 08/30/2023 12:10 PM 01/06/2024 2:18 PM Full Code Care Teams Clinical Application Consultant Relationship Specialty Start Date End Date Britt Villarreal PA-C [address] [place] [address] PCP - General Internal Medicine 11/03/24
--- OUTSIDE RECORDS SUMMARY | 2025-07-15 09:46 | XMS_ITS | Encounter Summary ---
Author Organization [facility] Address [address] [place] [address] Care Team Providers Care Diesel Service Journeyman Name Role Phone Ranjana Villarreal PA-C Primary Care Provi erika Encounter Details Date Type Department Care Team (Latest Contact Info) Description 07/13/2025 Travel Social History Tobacco Use Types Packs/Day [...] Info) Description 07/20/2025 Scanned Document [facility] [place] at [address] [phone] Orthopedic Surgery, Scan 07/21/2025 2:00 PM EDT Appointment [facility] [address] [place] [address] Kemar Storey MD [address] [place] [address] [address] [place] [address] 08/19/2025 8:00 AM EST Telemedicine Clinical Support [facility] [place] [facility] [address] [place] [phone] Meredith Waters NP [address] [place] [address] [address] [address] Reji Amos, DILIP [address] [place] [address] 09/03/2025 8:15 AM EST Office Visit [facility] [address] [facility] [address] [place] [address] Jared Rousseau MD [address] [place] [address] 09/03/2025 1:00 PM EST Procedure visit [facility] [place] [address] [place] [phone] 10/06/2025 7:40 AM EST Office Visit [facility] [address] [phone] Maria D Hinojosa APRN [address] [place] [address] 10/08/2025 8:00 AM EST Office Visit [address] [place] [address] Ranjana Villarreal PA-C [address] [place] [address] documented as of this encounter Visit Diagnoses Not on filedocumented in this encounter Care Teams Diesel Service Journeyman Relationship Specialty Start Date End Date Ranjana Villarreal PA-C [address] [place] [address] PCP - General Internal Medicine 11/03/24 documented as of this encounter
--- OUTSIDE RECORDS SUMMARY | 2025-07-15 09:46 | XMS_ITS | Encounter Summary ---
Author Organization [facility] Address [address] [place] [address] Care Team Providers Care Handbag Stitcher Name Role Phone Ranjana Villarreal PA-C Primary Care Provi erika Encounter Details Date Type Department Care Team (Late st Contact Info) Description 06/17/2025 Scanned Document [facility] NEPHROLOGY SCAN Nephrology, Scan Social History [...] Info) Description 07/20/2025 Scanned Document [facility] [place] [facility] 32 [place] [address] Orthopedic Surgery, Scan 07/21/2025 2:00 PM EDT Appointment [facility] [address] [place] [address] Kemar Storey MD 499 [facility] [address] [place], [place] [address] 08/19/2025 8:00 AM EST Telemedicine Clinical Support [facility] [place] [facility] [address] [address] Meredith Waters NP 31 [facility] [address] [address] Reji Amos, DILIP 32 [place] [address] 09/03/2025 8:15 AM EST Office Visit [facility] 7 [facility] [address] [place] [address] Jared Rousseau MD 31 [facility] 100 [place] [address] 09/03/2025 1:00 PM EST Procedure visit [facility] [place] 699 [place] [phone] 10/06/2025 7:40 AM EST Office Visit [facility] [place] 100 [place] [phone] Maria D Hinojosa APRN 699 [place] [address] 10/08/2025 8:00 AM EST Office Visit [facility] [address] [place] [address] Ranjana Villarreal PA-C [address] [place] [address] documented as of this encounter Visit Diagnoses Not on filedocumented in this encounter Care Teams Handbag Stitcher Relationship Specialty Start Date End Date Ranjana Villarreal PA-C [address] [place] [address] PCP - General Internal Medicine 11/03/24 documented as of this encounter
--- OUTSIDE RECORDS SUMMARY | 2025-07-15 09:46 | XMS_ITS | Encounter Summary ---
Author Organization [facility] Address [address] [place] [address] Care Team Providers Care Motor Vehicle Assembly Supervisor Name Role Phone Ranjana Villarreal PA-C Primary Care Provi erika Encounter Details Date Type Department Care Team (Late st Contact Info) Description 06/05/2025 Scanned Document [facility] [address] [place] [address] Neurology, Scan Social History Tobacco [...] [facility] [place] [facility] 32 [place] [phone] Orthopedic Surgery, Scan 07/21/2025 2:00 PM EDT Appointment [facility] 150 [place] [address] Kemar Storey MD 499 [facility] [address] [place], [place] [address] 08/19/2025 8:00 AM EST Telemedicine Clinical Support [facility] and [facility] [place] [facility] [address] [place] [address] [address] [place] [phone] Meredith Waters NP 31 [facility] [address] [address] [place] [address] 09/03/2025 8:15 AM EST Office Visit [facility] 7 [facility] [address] [place] [address] Jared Rousseau MD 31 [facility] 100 [place] [address] 09/03/2025 1:00 PM EST Procedure visit [facility] [place] [address] [place] [phone] 10/06/2025 7:40 AM EST Office Visit [facility] [place] [address] [place] [address] Maria D Hinojosa, COMPOUNDER 699 [place] [address] 10/08/2025 8:00 AM EST Office Visit [facility] [address] [place] [address] Ranjana Villarreal PA-C [address] [place] [address] documented as of this encounter Visit Diagnoses Not on filedocumented in this encounter Care Teams Motor Vehicle Assembly Supervisor Relationship Specialty Start Date End Date Ranjana Villarreal PA-C [address] [place] [address] PCP - General Internal Medicine 11/03/24 documented as of this encounter
== END 2025-07-15 09:25 | disposition home or self-care (01) ==
LOC: HO.HPSW 08:59
PROVIDERS: PCP Physician Assistant Medical; Visit Provider Nurse Practitioner Family
DX: U09.9 Post COVID-19 condition, unspecified (principal); R06.09 Other forms of dyspnea; J47.9 Bronchiectasis, uncomplicated
CPT/HCPCS: 99214

== ENCOUNTER 2025-07-28 15:12 | Outpatient (REF) | payer BC, SELFPAY | END 2025-07-28 15:13 | disposition home or self-care (01) | LOC: HO.LAB 15:12 | PROVIDERS: PCP Physician Assistant Medical; Visit Provider Nurse Practitioner Family | DX: N39.46 Mixed incontinence (principal); R30.0 Dysuria; R31.29 Other microscopic hematuria; Z13.89 Encounter for screening for other disorder | CPT/HCPCS: 51798; 81003 ==

== ENCOUNTER 2025-07-28 15:12 | Outpatient (AMB) | payer BC, SELFPAY ==
--- OUTSIDE RECORDS SUMMARY | 2025-07-02 08:45 | XMS_ITS | Encounter Summary ---
Author Organization [facility] Address [address] [place] [address] Care Team Providers Care News Agent Name Role Phone Ranjana Villarreal PA-C Primary Care Provi erika Reason for Referral * Outpatient Surgery (Routine) - Authorized Specialty Diagnoses / Procedures Referred By Contac t Referred To Contact Orthopedic Surgery Diagnoses Spondylosis of lumbosacral region without myelopathy or radiculopathy Kemar Storey MD [address] [facility] [address] [place] [address] Phone: tel: fax: Referral ID Status Reason Start Date Expiration Date V isits Requested Visits Authorized [id number] Authorized 07/02/2025 07/03/2026 1 1 Question Answer Primary Procedure: 02587 - L-S MBB Additional Procedure(s): 29958 - L-S MBB 2nd LVL Procedure: BILATERAL L3 L4 L5 MEDIAL BRANCH BLOCK #1 Surgery Date 08/06/2025 Performing Location: [facility] Duration (Mins): 15 Laterality: Bilateral Anesthesia: LOCAL Workers Comp? No Reason for Visit * Reason Comments Pain * Rehabilitation (Routine) - Pending Review Specialty Diagnoses / Procedures Referred By Contact Referred To Contact Physical Medicine and Rehabilitation / Pain Management Diagnoses Back pain, unspecified back location, unspecified back pain laterality, unspecified chronicity Jared Rousseau MD [address] [facility] [address] [place] [address] Phone: tel:[phone] fax:[phone] Kemar Storey MD [address] [place] [address] Phone: tel: fax: Referral ID Status Reason Start Date Expiration Date Visits Requested Visits Authorized [id number] Pending Review Consult 06/04/2025 06/05/2026 1 1 Encounter Details Date Type Department Care Team (Late st Contact Info) Description 07/02/2025 8:45 AM EDT Consult [facility] [address] [place] [phone] Jared Rousseau MD [address] [address] Milan Rodriguez APRN [address] [facility] [address] [place] [address] Spondylosis of lumbosacral region without myelopathy or radiculopathy (Primary Dx) Social History Tobacco Use Types [...] Unable or Declines to Respond No 09/18/2023 PHQ-2 Answer Date Recorded PHQ-2 Total Score 1 07/27/2025 Social Connection and Isolation Panel Answer Date Recorded In a typical week, how many times do you talk on the phone with family, friends, or neighbors? More than three times a week 07/27/2025 Frequency of Social Gatherin gs with Friends and Family Not on file 07/27/2025 Attends Cheondoism Services Not on file 07/27 Active Member of Clubs or Organizations Not on f ile 07/27/2025 Attends Club or Organization Meetings Not on sol e 07/27/2025 Marital Status Not on file 07/27/2025 AUDIT-C Answer Date Recorded Q1: How often do you have a drink containing alc ohol? Never 07/27/2025 Average Number of Drinks Not on file 025 Frequency of Binge Drinking Not on file 07/02 Hunger Vital Sign Answer Date Recorded Within the past 12 months, y ou worried that your food would run out before you got the money to buy more. Never true 07/27/20 25 Within the past 12 months, t he food you bought just didn't last and you didn't have money to get more. Never true 07/27/2025 PRAPARE - Transportation Answer Date Re corded In the past 12 months, has l ack of transportation kept you from medical appointments or from getting medications? No 07/02 In the past 12 months, has l ack of transportation kept you from meetings, work, or from getting things needed for daily living? No 07/27/2025 Housing Stability Vital Sign Answer Rush e Recorded In the last 12 months, was t here a time when you were not able to pay the mortgage or rent on time? No 07/27/2025 In the past 12 months, how m any times have you moved where you were living? 0 07/27/2025 At any time in the past 12 m [facility], were you homeless or living in a alf (including now)? No 07/27/[address] [facility] Utilities Answer Date Recorded In the past 12 months has th e [employer], gas, oil, or water [employer] threatened to shut off services in your home? No 07/27/2025 Physical Activity Answer Date Recorded On average, how many days pe r week do you engage in moderate to strenuous exercise (like a brisk walk)? 0 days 07/27/2025 On average, how many minutes do you exercise per day at this level? 0 min 07/27/2025 Comments No Sex and Gender Information Value Date Recorded Sex Assigned at Female 01/06/2024 3:09 PM EDT Legal Sex Female 4:18 PM EDT Gender Identity Female 01/06/2024 3:09 PM EDT Sexual Orientation Choose not to disclose 2023 3:09 PM EDT documented as of this encounter Last Filed Vital Signs Vital Sign Reading Time Taken Comments Blood Pressure 120/70 07/02/2025 9:01 AM EDT Pulse 68 07/02/2025 9:01 AM EDT Temperature - - Respiratory Rate 15 07/02/2025 9:01 AM EDT Oxygen Saturation - - Inhaled Oxygen Concentration - - Weight 125 kg (275 lb) 07/02/2025 9:01 AM EDT Height 165.1 cm (5' 5 ) 07/02/2025 9:01 AM EDT Body Mass Index 45.76 07/02/2025 9:01 AM EDT documented in this encounter Functional Status * Q1: How often do you have a drink containing alcohol? Answer Date of Assessment Author Never 07/27/2025 10:23 AM EDT Mychart, Generic * PHQ-2 Total Score Answer Date of Assessment Author 1 07/27/2025 10:20 AM EDT Mychart, Generic * Over the past 2 weeks, how often have you been bothered by any of the following problems? Question Answer Date of Assessment Author Patient Health Questionnaire-2 Score 1 07/02 10:20 AM EDT Mychart, Generic * Little interest or pleasure in doing things Answer Date of Assessment Author Not at all 07/27/2025 10:20 AM EDT Mychart, Generic * Feeling down, depressed, or hopeless Answer Date of Assessment Author Several days 07/27/2025 10:20 AM EDT Mychart, Generic * Question Answer Date of Assessment Author Patient Health Questionnaire-9 Score 3 07/02 10:20 AM EDT Mychart, Generic * Trouble falling or staying asleep, or sleeping too much Answer Date of Assessment Author Several days 07/27/2025 10:20 AM EDT Mychart, Generic * Feeling tired or having little energy Answer Date of Assessment Author Several days 07/27/2025 10:20 AM EDT Mychart, Generic * Poor appetite or overeating Answer Date of Assessment Author Not at all 07/27/2025 10:20 AM EDT Mychart, Generic * Feeling bad about yourself - or that you are a failure or have let yourself or your family down Answer Date of Assessment Author Not at all 07/27/2025 10:20 AM EDT Mychart, Generic * Trouble concentrating on things, such as reading the newspaper or watching television Answer Date of Assessment Author Not at all 07/27/2025 10:20 AM EDT Mychart, Generic * Moving or speaking so slowly that other people could have noticed? Or the opposite - being so fidgety or restless that you have been moving around a lot more than usual. Answer Date of Assessment Author Not at all 07/27/2025 10:20 AM EDT Mychart, Generic * How difficult have these problems made it for you to do your work, take care of things at home, or get along with other people? Answer Date of Assessment Author Somewhat difficult 07/27/2025 10:20 AM EDT Mycha rt, Generic * Over the last 2 weeks, how often have you been bothered by any of the following problems? Question Answer Date of Assessment Author MINH-7 Total Score 6 07/27/2025 10:21 AM EDT Mychart, Generic * Feeling nervous, anxious, or on edge Answer Date of Assessment Author 1 07/27/2025 10:21 AM EDT Mychart, Generic * Not being able to stop or control worrying Answer Date of Assessment Author 1 07/27/2025 10:21 AM EDT Mychart, Generic * Worrying too much about different things Answer Date of Assessment Author 1 07/27/2025 10:21 AM EDT Mychart, Generic * Trouble relaxing Answer Date of Assessment Author 1 07/27/2025 10:21 AM EDT Mychart, Generic * Being so restless that it is hard to sit still Answer Date of Assessment Author 0 07/27/2025 10:21 AM EDT Mychart, Generic * Becoming easily annoyed or irritable Answer Date of Assessment Author 1 07/27/2025 10:21 AM EDT Mychart, Generic * Feeling afraid as if something awful might happen Answer Date of Assessment Author 1 07/27/2025 10:21 AM EDT Mychart, Generic * Question Answer Date of Assessment Author Thoughts that you would be better off or hurting yourself in some way Not at all 07/27/2025 10:20 AM EDT Gabbi Lewis MA PHQ-9 Total Score 3 07/27/2025 10:20 AM EDT Katelyn Jones documented as of this encounter Progress Notes * Milan Rodriguez MARCOS - 07/02/2025 8:45 AM EDT Images from the original note were not included. [facility] [address] [facility] [address] [facility] [phone] Encounter Date: 07/02/2025 Assessment & Plan 1. Spondylosis of lumbosacral region without myelopathy or radiculopathy BILATERAL L3 L4 L5 MEDIAL BRANCH BLOCK #1 Patient has mechanical low back pain is likely facet mediated. She does have some underlying degenerative disc disease. Regards to her lower extremity fatigue I do not identify any significant stenosis. This may be simply due to deconditioning as she has been laid up since having severe COVID and having foot and anklesurgery. The patient will continue with home exercises Plan: 1. I recommend medial branch blocks bilateral L3 L4-5 medial branch nerves. If effective the block will be repeated 2. The patient will gauging activities to cause her back pain and maintain a pain diary We discussed the risks and benefits of proceeding with Medial Branch Blocks of the sensory nerves supplying the facet joints of the spine. Risks include but are not limited to: Infection, Bleeding, Nerve injury, pain at the injection site, pain associated with the injection, possibility of increased pain after the injection, and failure to provide relief. Benefits include pain reduction or possible elimination of the pain. The duration of pain relief, if achieved, should last approximately 2 to3 days. The patient should participate in activities that normally cause their pain and maintain a pain diary tracking their pain levels. The patient must achieve a satisfactory level of pain relief in order to proceed to the next step in the process. The patient is a candidate to have this procedure done as they have met the following criteria: This patient has had mechanical low back pain for greater than 6 months. The patient's pain level is a 7 out of 10 on a numeric pain scale. This patient has tried Physical Therapy and/or is participating in a Home Exercise Program within the last 6 months. The patient has tried nonsteroidal anti-inflammatory medications and muscle relaxers, but these have not provided relief. Pain is localized and does not radiate beyond their spine. The patient has not had fusion in the area of concern. The patient continues Physical Therapy Exercises Prescribed for Home on a daily basis. The patients pain interferes with activities of daily living including housework and sleep interruption. Pain levels reach at least a 7 on a daily basis, interfering with the patients' quality of life. History of Present Illness: Ewelina Mathis is a 60 y.o. female who presents today for an evaluation. This is a patient referred by Dr. Rousseau for low back pain and possible medial branch blocks and radiofrequency lesioning. The patient has been attending physical therapy. She is also attending the modified weight loss clinic. She is does home exercises Patient is here and uses a rolling walker. She describes pain in her back. She states she cannot stand for more than a minute or 2 without severe pain. She also describes fatigue in her legs with walking. Back pain has been going on for decades. She states lower extremity weakness started after she had severe COVID. She also had foot and ankle surgery which she feels may have contributed to her back pain and recovery. Vital Signs BP 120/70 Pulse 68 Resp 15 Ht 1.651 m (5' 5 ) Wt 125 kg (275 lb) BMI 45.76 kg/m?? Cardiac regular rhythm on exam Pulmonary Clear Physical Examination of the patient reveals the following: Patient is well appearing, A&Ox3, not in acute distress. Inspection reveals no atrophy to the lumbar paraspinals or lower extremity musculature. Range of Motion of the Lumbar spine is restricted. Lumbar paraspinals are tender to palpation. Straight leg raise test: Negative. Hip internal/external rotation: Negative. Facet loading: Positive Motor testing: IP, quadricep, hamstring, dorsiflexion, plantarflexion, EHL 5/5 Sensory testing intact Spinal reflexes 2/2 patella and achilles SI Joint: Mike's maneuver is negative. Facet loading is positive. Patient is using a rolling walker Imaging/Data Review Pain Management PAIN: Please rate your current pain or pain with activity 0-10. 10 is pain so severe you cannot do any activity.: (Patient-Rptd) (P) 8 Improvement from Injection (if appropriate):: (Patient-Rptd) (P) NA What activities or functions have improved since treatment?: (Patient-Rptd) (P) NA What activities or functions are limited by your pain?: (Patient-Rptd) (P) Walking, Standing, Bending, Lifting Have you had any conservative treatment at least 6 weeks within the last 6 months?: (Patient-Rptd) (P) No Imaging was independently reviewed and interpreted by me within the boundaries of my professional education. Imaging results are reviewed and compared with radiologist professional readings. Questions or concerns regarding such imaging will be deferred to the expertise of the reading radiologist orother qualified professional. Imaging Impression: Low bar MRI dated 05/26/2025 is reviewed there is severe degenerative disease at L2-L3 more severe at L3-L4 there is Modic endplate changes and Schmorl's nodes L1-L2 there is a superior migrating disc extrusion to the left of central without direct nerve impingement. Mild central stenosis and spondylosis noted L2-L3 disc bulging with foraminal narrowing greater on the right and spondylosis L3-L4 diffuse disc bulging with recess narrowing and spondylosis bilaterally. There is severe rightand moderate to severe left foraminal stenosis L4-L5 diffuse disc bulge with a high intensity zone noted on sagittal images . Spondylosis is noted bilaterally. L5-S1 possibly sacralized. Spondylosis without disc herniation or stenosis. Review of Systems Patient denies fever, unintentional weight loss. Remainder of a 10 point review of systems is otherwise negative except for pertinent positives listed above in the HPI. Past Medical History Past Medical History: Diagnosis Date Anemia Anxiety At risk for injury related to fall cane or walker CAD (coronary artery disease) 11/03/2024 Charcot joint of foot Chronic kidney disease Community acquired pneumonia 07/18/2023 Depression Diabetes mellitus (HCC) Diabetic neuropathy associated with type 2 diabetes mellitus (HCC) 11/03/2024 Dyspnea due to COVID-19 01/01/2025 Gastroesophageal reflux disease without esophagitis 11/03/2024 History of aspiration pneumonia 2005 with anesthesia History of COVID-19 11/03/2024 has mcfp effects- using inhaler History of non-ST elevation myocardial infarction (NSTEMI) 08/10/2023 Hyperlipidemia Hypertension IBS (irritable bowel syndrome) Mixed anxiety depressive disorder 11/03/2024 Morbid obesity (HCC) 11/03/2024 Obesity Occipital neuralgia Orthostatic hypotension 07/18/2023 Other hyperlipidemia 11/03/2024 Primary hypertension 11/03/2024 Primary insomnia 11/03/2024 Recurrent major depressive disorder, in partial remission 11/03/2024 Sleep apnea no cpap Sleep-disordered breathing 11/03/2024 Tremor 11/03/2024 Type 2 diabetes mellitus without complication, with long-term current use of insulin ([facility]) 11/03/2024 Past Surgical History: Procedure Laterality Date ANKLE FRACTURE SURGERY Left and foot SECTION CHOLECYSTECTOMY ENDOSCOPY UPPER N/A 02/27/2025 Procedure: ENDOSCOPY UPPER; Surgeon: Jaison Holman MD; Location: GI Endoscopy; Service: Gastroenterology; Laterality: N/A; HYSTERECTOMY No family history on file. Social History[1] Medication List Current Medications[2] Allergies Allergies[3] Visit Orders. Orders Placed This Encounter Procedures BILATERAL L3 L4 L5 MEDIAL BRANCH BLOCK #1 Referral Priority: Routine Referral Type: Outpatient Surgery Number of Visits Requested: 1 No orders of the defined types were placed in this encounter. Milan Rodriguez APRN [1] Social History Tobacco Use Smoking status: Never Smokeless tobacco: Never Vaping Use Vaping status: Never Used Substance Use Topics Alcohol use: Not Currently Comment: Patient reported no comsumption of alcohol currently. Drug use: Yes Types: Marijuana Comment: gummies-advised to stop 1 week prior to surgery [2] Current Outpatient Medications: acetaminophen (TYLENOL) 500 MG tablet, Take 1 tablet (500 mg total) by mouth 4 times daily (every 6hours) as needed for mild pain., Disp: , Rfl: albuterol (PROVENTIL HFA; VENTOLIN HFA) 108 (90 [...] Take 1 tablet (81 mg total) by mouthevery morning., Disp: , Rfl: atorvastatin (LIPITOR) 80 MG tablet, Take 1 tablet (80 mg total) by mouth every morning., Disp: , Rfl: budesonide-formoterol (SYMBICORT) 160-4.5 MCG/ACT inhaler, Inhale 2 puffs twice daily (every 12 hours)., Disp: , Rfl: buPROPion (WELLBUTRIN XL) 300 MG 24 hr tablet, Take 1 tablet (300 mg total) by mouth every morning., Disp: , Rfl: Continuous Glucose Sensor (Dexcom G6 Sensor) [facility], USE 1 SENSOR EVERY 10 DAYS, Disp: , Rfl: Continuous Glucose Transmitter (Dexcom G6 Transmitter) [facility], 1 DEVICE BY DOES NOT APPLY ROUTE [...] 14 days (2 weeks)., Disp: , Rfl: gabapentin (NEURONTIN) 300 MG capsule, Take 1 capsule (300 mg total) by mouth 3 (three) times a day., Disp: , Rfl: hydroCHLOROthiazide (MICROZIDE) 12.5 MG capsule, Take 1 capsule (12.5 mg total) by mouth every morning., Disp: , Rfl: hydrOXYzine HCl (ATARAX) 10 MG tablet, Take 1 tablet (10 mg total) by mouth daily as needed., Disp:, Rfl: insulin aspart (NovoLOG FlexPen) 100 UNIT/ML prefilled pen injection, Inject 10 Units under the skin 3 (three) times a day before meals. Patient reports utilizing sliding scale, Disp: , Rfl: insulin glargine (insulin glargine, BASAGLAR KWIKPEN,) 100 units/mL prefilled pen injection, [id number] Units under the skin nightly., Disp: , Rfl: ipratropium (ATROVENT) 0.03 % nasal spray, as needed., Disp: , Rfl: ipratropium-albuterol (DUONEB) 0.5-2.5 mg/3 mL nebulizer solution, 3 ML INHALED EVERY 6 HOURS NEEDED FOR WHEEZING, Disp: , Rfl: methocarbamol (ROBAXIN) 750 MG tablet, Take 1 tablet (750 mg total) by mouth 4 (four) times a day as needed for muscle spasms., Disp: 40 tablet, Rfl: 0 Multiple Vitamin tablet, Take 1 tablet by mouth every morning., Disp: , Rfl: naltrexone (REVIA) 50 MG tablet, Take 1 tablet (50 mg total) by mouth every morning., Disp: , Rfl: PANTOprazole (PROTONIX) 40 MG EC tablet, Take 1 tablet (40 mg total) by mouth daily., Disp: 90 tablet, Rfl: 3 primidone (MYSOLINE) 50 MG tablet, Take 1 tablet (50 mg total) by mouth nightly., Disp: , Rfl: SUPPLY DME MISC, Walker with seat & breaks [facility] [address] [place] [address] , Disp: 1 each, Rfl: 0 traZODone (DESYREL) 100 MG tablet, Take 1 tablet (100 mg total) by mouth nightly., Disp: , Rfl: [3] Allergies Allergen Reactions Ceftriaxone Rash/Dermatitis Metformin Diarrhea documented in this encounter Miscellaneous Notes * Addendum Note - Yamileth Rabago - 07/02/2025 8:45 AM EDTAddended by: YAMILETH RABAGO on: 07/21/2025 08:44 AM Modules accepted: Orders * Addendum Note - Yamileth Rabago - 07/02/2025 8:45 AM EDTAddended by: YAMILETH RABAGO on: 07/27/2025 10:45 AM Modules accepted: Orders documented in this encounter Plan of Treatment Upcoming Encounters Date Type Department Care Team (Late st Contact Info) Description 08/06/2025 1:00 PM EST Appointment [facility] [address] [place] [address] Jared Rousseau MD 31 [facility] [address] [place] [address] Kemar Storey MD [address] [facility] [address] [place], [place] [id number] 08/19/2025 8:00 AM EST Telemedicine Clinical Support [facility] [address] [phone] Meredith Waters, MARY [address] [facility] [address] [address] Reji Amos, DILIP [address] [place] [address] 08/26/2025 11:40 AM EST Procedure visit [facility] [address] [place] [phone] 09/03/2025 8:15 AM EST [facility] [address] [place] [address] Jared Rousseau MD [address] [facility] [address] [place] [address] 10/06/2025 7:40 AM EST Office Visit [facility] [place] [address] [place] [address] Maria D Hinojosa, PBX MECHANIC [address] [place] [address] 11/24/2025 8:00 AM EST Office Visit [facility] 100 [facility] [address] [place] [phone] Ranjana Villarreal PA-C [address] [place] [address] Scheduled Referrals Name Type Priority Associated Diagnoses Orde r Schedule BILATERAL L3 L4 L5 MEDIAL BRANCH BLOCK #1 Outpatient Referral Routine Spondylosis of lumbosacral region without myelopathy or radiculopathy Ordered: 07/27/2025 documented as of this encounter Procedures Procedure Name Priority Date/Time Associated Diagnosis Comments AMB REFERRAL TO PHYSICAL MEDICINE REHAB Routine 07/02/2025 1:06 PM EDT Back pain, unspecified back location, unspecified back pain laterality, unspecified chronicity documented in this encounter Visit Diagnoses Diagnosis Spondylosis of lumbosacral region without myelopathy or radiculopathy- Primary documented in this encounter Care Teams News Agent Relationship Specialty Start Date End Date Ranjana Villarreal PA-C [address] [place] [address] PCP - General Internal Medicine 11/03/24 documented as of this encounter
--- OUTSIDE RECORDS SUMMARY | 2025-07-20 16:53 | XMS_ITS | Encounter Summary ---
Author Organization [facility] Address [address] [place] [address] Care Team Providers Care Black Powder Glazing Operator Name Role Phone Ranjana Villarreal PA-C Primary Care Provi erika Encounter Details Date Type Department Care Team (Late st Contact Info) Description 07/20/2025 4:53 PM EDT Hospital Encounter [facility] Urgent Care [address] [place] [address] Social History Tobacco Use Types [...] and Family Not on file 07/27/2025 Attends Rastafari Services Not on file 07/27 Active Member [...] any time in the past 12 m [facility], were you homeless or living in a retirement (including now)? No 07/27/2025 [facility] Utilities Answer Date Recorded In the past 12 months has e [employer] gas, oil, or water company threatened to [...] 1:00 PM EST Appointment [facility] [address] [address] Jared Rousseau MD [address] [place] [address] Kemar Storey MD 499 [facility] [address] [place], [place] [address] 08/19/2025 8:00 AM EST Telemedicine Clinical Support [facility] [place] [facility] 32 [facility] 1st [place] [phone] Meredith Waters NP 31 [facility] [address] [address] Reji Amos, DILIP 32 [place] [address] 08/26/2025 11:40 AM EST Procedure visit [facility] [place] [address] [place] [phone] 09/03/2025 8:15 AM EST Office Visit [facility] [address] [place], [place] [address] Jared Rousseau MD [address] [phone] 10/06/2025 7:40 AM EST Office Visit [facility] Pulmonary [address] [phone] Maria D Hinojosa, CLINICAL ENGINEER [address] [place] [address] 11/24/2025 8:00 AM EST Office Visit [address] [place] [phone] Ranjana Villarreal PA-C 100 [place] [address] documented as of this encounter Procedures Procedure [...] clear. IMPRESSION: 1. No fracture or dislocation. us Byron HARDIN DIAGNOSTIC IMAGING ORDERAB LES Final Result documented in this encounter Visit Diagnoses Not on filedocumented in this encounter Care Teams Black Powder Glazing Operator Relationship Specialty Start Date End Date Ranjana Villarreal PA-C [address] [place] [address] PCP - General Internal Medicine 11/03/24 documented as of this encounter
--- OUTSIDE RECORDS SUMMARY | 2025-07-27 14:00 | XMS_ITS | Encounter Summary ---
Author Organization [facility] Address [address] [place] [address] Care Team Providers Care Punch Machine Hand Name Role Phone Ranjana Villarreal PA-C Primary Care Provi erika Reason for Referral * Diagnostic Imaging (Routine) - Pending Review Specialty Diagnoses / Procedures Referred By Sarah yap Referred To Contact Diagnoses Right shoulder pain, unspecified chronicity Procedures MRI Shoulder w/o contrast-Right Matti Lambert PA 31 [facility] [address] [place] [address] Phone: tel: fax: [facility] Referral ID Status Reason Start Date Expiration Date V isits Requested Visits Authorized [id number] Pending Review 07/27/2025 07/28/2026 1 1 Reason for Visit * Reason Comments Pain * Orthopedic (Elective) - Closed Specialty Diagnoses / Procedures Referred By Sarah t Referred To Contact Orthopedic Surgery Diagnoses Acute pain of right shoulder Injury of right rotator cuff, initial encounter Byron Olson PA [address] [place] [address] Phone: tel: fax: [facility] 7 [facility] [address] [place] [address] Phone: tel: Referral ID Status Reason Start Date Expiration Date Visits Re quested Visits Authorized [id number] Closed 07/20/2025 07/21/2026 1 1 Encounter Details Date Type Department Care Team (Late st Contact Info) Description 07/27/2025 2:00 PM EDT Consult [facility] [address] [address] Matti Lambert PA [address] [place] [phone] Right shoulder pain, unspecified chronicity (Primary Dx) Social History Tobacco [...] and Family Not on file 07/27/2025 Attends Faith Services Not on file 07/27 Active Member [...] in the past 12 m [facility], were you homeless or living in a senior living (including now)? No 07/27/2025 [facility] Utilities Answer Date Recorded In the past 12 months has th e electric, gas, oil, or water company threatened to [...] Assessment Author 1 07/27/2025 10:20 AM EDT [place], Generic * Over the past 2 weeks, [...] 1:00 PM EST Appointment [facility] [address] [address] Jared Rousseau MD 31 [facility] 100 [place] [address] Kemar Storey MD [address] [facility] [address] [place] [address] 08/19/2025 8:00 AM EST Telemedicine Clinical Support [facility] [place] [facility] 32 [facility] 1st [place] [phone] Meredith Waters NP 31 [facility] [address] [address] Reji Amos, RD 32 [place] [address] 08/26/2025 11:40 AM EST Procedure visit [facility] [place] 699 [place] [phone] 09/03/2025 8:15 AM EST Office Visit [facility] [place] 7 [facility] [address] [place] [address] Jared Rousseau MD 31 [facility] 100 [place] [address] 10/06/2025 7:40 AM EST Office Visit [facility] 100 [place] [address] Maria D Hinojosa, MARCOS 699 [place] [address] 11/24/2025 8:00 AM EST Office Visit [facility] 100 [facility] [address] [place] [address] Ranjana Villarreal PA-C 100 [place] [address] Scheduled Orders Name Type Priority Associated Diagnoses Orde r Schedule MRI Shoulder w/o contrast-Right Imaging Routine Right shoulder pain, unspecified chronicity Expected: 07/27/2025, Expires: 07/27/2026 documented as of this encounter Visit Diagnoses Diagnosis Right shoulder pain, unspecified chronicity- Primary documented in this encounter Care Teams Punch Machine Hand Relationship Specialty Start Date End Date Ranjana Villarreal PA-C [address] [place] [address] PCP - General Internal Medicine 11/03/24 documented as of this encounter
--- OUTSIDE RECORDS SUMMARY | 2025-07-28 08:30 | XMS_ITS | Encounter Summary ---
Author Organization [facility] Address [address] [place] [id number] Care Team Providers Care Digital Marketing Officer Name Role Phone Ranjana Villarreal PA-C Primary Care Provi erika Reason for Referral * Bariatric (Routine) - Authorized Specialty Diagnoses / Procedures Referred By Contac t Referred To Contact Surgery, Bariatric Diagnoses Type 2 diabetes mellitus with diabetic neuropathic arthropathy, with long-term current use of insulin (HCC) Morbid obesity (HCC) Coronary artery disease involving [place] coronary artery of [place] heart without angina pectoris Ranjana Villarreal PA-C [address] [place] [address] Phone: tel: fax: Abiodun Gongora MD [address] [place] [id number] Phone: tel: fax: Referral ID Status Reason Start Date Expiration Date V isits Requested Visits Authorized [id number] Authorized Consult 07/28/2025 07/29/2026 1 1 Encounter Details Date Type Department Care Team (Latest Contact Info) Description 07/28/2025 8:30 AM EDT Office Visit [facility] [address] [facility] [address] [place] [phone] Ranjana Villarreal PA-C [address] [place] [address] Annual physical exam (Primary Dx); Type 2 diabetes mellitus with diabetic neuropathic arthropathy, with long-term current use of insulin (HCC); Diabetic polyneuropathy associated with type 2 diabetes mellitus (HCC); Diabetic retinopathy associated with type 2 diabetes mellitus, macular edema presence unspecified, unspecified laterality, unspecified retinopathy severity ([facility]); Dyslipidemia; Amos's esophagus without dysplasia; Gastroesophageal reflux disease without esophagitis; Esophageal dysphagia; Morbid obesity ([facility]); Recurrent major depressive disorder, in partial remission; Primary insomnia; Primary hypertension; Carotid artery stenosis without cerebral infarction, bilateral; Irritable bowel syndrome with both constipation and diarrhea; Charcot's arthropathy; Chronic kidney disease, stage IV (severe) ([facility]); Bronchiectasis without complication ([facility]); Dyspnea on exertion; Post-COVID syndrome; Coronary artery disease involving [place] coronary artery of [place] heart without angina pectoris; Snoring; Back pain, unspecified back location, unspecified back pain laterality, unspecified chronicity; Primary osteoarthritis involving multiple joints; Recurrent UTI; Essential tremor; Peripheral vascular disease; Other diabetic neurological complication associated with type 2 diabetes mellitus ([facility]); Occipital neuralgia of left side; Stage 3 chronic kidney disease, unspecified whether stage 3a or 3b CKD ([facility]) Social History Tobacco Use Types Packs/Day Years [...] and Family Not on file 07/27/2025 Attends [employer] Not on file 07/27 Active Member [...] any time in the past 12 m [facility], were you homeless or living in a usp (including now)? No 07/27/2025 [facility] Utilities Answer Date Recorded In the past 12 months has th e [employer], gas, oil, or water [employer] threatened to shut off services in your [...] Sign Reading Time Taken Comments Blood Pressure 134/82 07/28/2025 12:47 PM EDT Pulse 84 07/28/2025 8:26 AM EDT Temperature 36.1 C (97 F) 07/28/2025 8:26 AM EDT Respiratory Rate 18 07/28/2025 8:26 AM EDT Oxygen Saturation 96% 07/28/2025 8:26 AM EDT Inhaled Oxygen Concentration - - Weight 131 kg (288 lb 12.8 oz) 07/28/2025 8:26 A M EDT Height 165.1 cm (5' 5 ) 07/28/2025 8:26 AM EDT Body Mass Index 48.06 07/28/2025 8:26 AM EDT documented in this encounter Progress Notes * Ranjana Villarreal PA-C - 07/28/2025 8:37 AM EDT Assessment & Plan Annual physical exam Fasting labs sent to [facility]. Patient is due for Tdap, she will get that at the pharmacy. She also is due for pneumonia vaccine and shingles vaccine. She declines them today. 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 I have recommended patient to reach out and book an appointment. She is up-to-date with her mammogram. Patient's last colonoscopy was done at [facility] 3 years ago. Get that report. Encouraged healthy diet. Follow-up in 3 months. Type 2 diabetes mellitus with diabetic neuropathic arthropathy, with long-term current use of insulin (HCC) Diabetic polyneuropathy associated with type 2 diabetes mellitus (HCC) Diabetic retinopathy associated with type 2 diabetes mellitus, macular edema presence unspecified, unspecified laterality, unspecified retinopathy severity (HCC) Compliant with insulin. Follows with Endo. Has been almost a year since she has been seen. She has an appointment this Sunday. She states her last A1c was a little over 7. She follows with ophthalmology. Does have diabetic retinopathy bilaterally. Sees a retinal specialist. She does have peripheral neuropathy secondary to diabetes as well. Follows with podiatry. She is on a statin. Not on an YARED. Stopped due to elevated creatinine. Will check urine microalbumin -lab sent to [facility]. Monofilament intact on the right foot in all regions. Diminished in the left foot on the 3rd and 5th toes and midfoot. Dyslipidemia Patient's last lipid profile in January showed total cholesterol 124, triglycerides 153, HDL 47 and LDLof 53. Patient is on Repatha and 80mg of Lipitor through cardiology. Amos's esophagus without dysplasia Gastroesophageal reflux disease without esophagitis Esophageal dysphagia Patient had endoscopy January 2025 with [facility]. Will be due again in 2027. Compliant with PPI. Dysphagia has improved. Morbid obesity (HCC) Patient has tried diet, unable to tolerate GLP-1's. We discussed bariatric surgery. She may be interested in a gastric sleeve. Referral placed to Dr. Gongora at [facility] per patient's request. Recurrent major depressive disorder, in partial remission Primary insomnia Follows with psych. Managed on trazodone for sleep. Has hydroxyzine as needed. She is on [id number] mg daily. Feels her pression is stable. Primary hypertension Compliant with blood pressure medications. Blood pressure is good. Carotid artery stenosis without cerebral infarction, bilateral Found incidentally when patient was in [facility] ER with left-sided headaches/blurred vision. Workup negative for stroke. Patient had CTA of the head and neck back in 2023 which showed partially calcified erythematous plaque involving both carotid bifurcations. 25% stenosis at the origins of both internal carotid arteries and there is mild tandem narrowing involving the cavernous segmentsof both internal carotid arteries. No intracranial large vessel occlusion. Patient saw vascular after this ER visit. Per their note they ordered a carotid duplex ultrasound which showed less than 50% stenosis to bilateral internal carotid arteries. Patient is medically managed. They will see her back in 2 to 3 years for reevaluation. Patient has not had any further symptoms. No carotid bruits noted on exam. Irritable bowel syndrome with both constipation and diarrhea Manageable. Follows with GI. Charcot's arthropathy History of. Patient had surgery on the foot. Following with Ortho. Chronic kidney disease, stage IV (severe) (HCC) In March patient had labs which showed a BUN of 39, creatinine of 2.59 and a GFR of 21. Put her at achronic kidney disease stage IV. Patient states she saw renal and they stopped her lisinopril. Repeat labs in June showed a creatinine of 1.63 and a GFR of 32. Patient is chronic kidney disease stage IIIb. Bronchiectasis without complication (HCC) Dyspnea on exertion Post-COVID syndrome History of COVID in 2020 requiring a day ICU stay in hospital admission for sepsis, DKA, pneumonia.History of COVID in [place] with acute respiratory failure with hypoxia and post COVID syndrome. Patient follows with pulmonary out of [facility]. Last seen Marilee 2024. Managed onBreyna. Has an albuterol inhaler that she uses occasionally. Coronary artery disease involving [place] coronary artery of [place] heart without angina pectoris [place] in 2022, patient hospitalized with COVID. Per pulmonary note patient had a cardiac cath that revealed mild CAD and an echo that showed an LVEF of 65 to 70% with mild diastolic dysfunction. Patient has been asymptomatic. I have encouraged patient to follow yearly with cardiology. 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 Back pain, unspecified back location, unspecified back pain laterality, unspecified chronicity Saw Ortho. MRI per their note showed multilevel facet arthropathy with no high- grade neuroforaminalstenosis. Patient was referred to PT. she is to be scheduled for some injections. Primary osteoarthritis involving multiple joints Saw Ortho for right knee pain. Recommended joint replacement. On hold for now. Recurrent UTI Follows with urology. On methenamine hippurate. Patient has not had a UTI. Essential tremor Patient follows with neurology. On primidone. Follow-up: Return in about 3 months (around 10/28/2025) for 30 MINUTES. Communication barriers and lifestyle preferences were addressed with the patient. The care plan including medications and self-management goals were reviewed to the best of the patient's abilities. All questions and concerns were answered. Patient and/or family verbalized understanding of the plan of care. Screening, Counseling & Education Labs reviewed, Screening Labs ordered, Vaccination Counseling, Breast cancer screening, Cervical cancer screening, and Colorectal cancer screening Subjective Subjective Patient's concern for today: Annual exam/follow-up chronic medical issues Review of Systems Constitutional: Negative for appetite change, chills, fatigue, fever and unexpected weight change. Neg night sweats HENT: Negative for ear pain, hearing loss, nosebleeds, sinus pressure, sinus pain, sore throat, tinnitus, trouble swallowing and voice change. Eyes: Negative for pain and visual disturbance. Utd with eye exam; has retinopathy Respiratory: Positive for shortness of breath. Negative for apnea, cough, chest tightness and wheezing. Cardiovascular: Negative for chest pain, palpitations and leg swelling. Neg irregular heartbeat Gastrointestinal: Negative for abdominal pain, anal bleeding, blood in stool, constipation, diarrhea, nausea, rectal pain and vomiting. Denies dyspepsia or dysphagia Endocrine: Negative for polydipsia, polyphagia and polyuria. Genitourinary: Negative for decreased urine volume, difficulty urinating, dysuria, flank pain, frequency, genital sores, hematuria, urgency, vaginal bleeding, vaginal discharge and vaginal pain. Recurrent uti- follows with urology in [place] Musculoskeletal: Negative for arthralgias, back pain, joint swelling and myalgias. Skin: Negative for rash. No new skin lesions Neurological: Negative for dizziness, tremors, syncope, weakness, light- headedness, numbness and headaches. Hematological: Does not bruise/bleed easily. Psychiatric/Behavioral: Negative for agitation, confusion, hallucinations, sleep disturbance and suicidal ideas. The patient is not nervous/anxious. General Health & Lifestyle Review Do you feel you eat a healthy and well balanced diet?: (Patient-Rptd) Yes Do you have a special kind of diet?: (Patient-Rptd) No On average, how many days per week do you engage in moderate to strenuous exercise (like a brisk walk)?: (Patient-Rptd) 0 days On average, how many minutes do you exercise per day at this level?: (Patient- Rptd) 0 min Total minutes per week of physical activity: : (Patient-Rptd) 0 Body mass index is 48.06 kg/m??. Wt Readings from Last 2 Encounters: 07/28/25 131 kg (288 lb 12.8 oz) 07/20/25 125 kg (275 lb) How would you rate your sleep quality? : (Patient-Rptd) Occasional unrestful sleep Do you have any problems with your hearing?: (Patient-Rptd) No Do you have any problems with your vision?: (!) (Patient-Rptd) Yes Sexual/ Reproductive Health Are you sexually active?: (Patient-Rptd) No Do you use control/contraception?: (Patient-Rptd) No Do you have problems with sex?: (Patient-Rptd) No Sexual partners?: (Patient-Rptd) Men Do you want STD testing today?: (Patient-Rptd) No Mental Health/Domestic Violence/Safety Screening Depression Screen: PHQ-9 Total Score: 3 Anxiety Screen: MINH-7 Total Score: 6 Is there anyone in your life who is hurting or threatening you in any way? no Referral Hotline [phone] (Nigerian) [phone] (Estonian) Do you always fasten your seatbelt when you are in a car?: (Patient-Rptd) Yes Do you wear a helmet when appropriate?: (Patient-Rptd) Yes Do you wear sunscreen when appropriate?: (Patient-Rptd) Yes Do you have working smoke and carbon monoxide detectors?: (Patient-Rptd) Yes Do you have any unsecured firearms in your home?: (Patient-Rptd) No Health Maintenance & Immunizations Health Maintenance Due Topic Date Due Hepatitis C Virus Screening Never done Ophthalmology Exam Never done HIV Screening Never done Physical Never done Microalbumin/Creatinine Ratio Urine Never done Pneumococcal Vaccines 50+ (1 of 2 - PCV) Never done Hepatitis B Vaccines (1 of 3 - 19+ 3-dose series) Never done Pap Smear (Ages 21-65) Never done Mammogram Never done Colonoscopy Never done Zoster (Shingles) Vaccine (1 of 2) Never done RSV Vaccine 50 years and older and Patients (1 - Risk 50-74 years 1- dose series) Never done Hemoglobin A1C 07/08/2024 DTaP/Tdap/Td Vaccines (2 - Td or Tdap) 10/22/2024 Influenza Vaccine 05/01/2025 The ASCVD Risk score (Joanna DIAL, et al., 2019) failed to calculate for the following reasons: Risk score cannot be calculated because patient has a medical history suggesting prior/existing ASCVD * - Cholesterol units were assumed Social History Social History[3] Objective Objective Vitals: 07/28/25 0826 07/28/25 1247 BP: (!) 152/82 134/82 BP Location: Left arm Patient Position: Sitting Cuff Size: XLarge (Thigh) Pulse: 84 Resp: 18 Temp: 97 ??F (36.1 ??C) TempSrc: Temporal SpO2: 96% Weight: 131 kg (288 lb 12.8 oz) Height: 1.651 m (5' 5 ) Physical Exam Vitals reviewed. Constitutional: General: She is not in acute distress. Appearance: Normal appearance. HENT: Head: Normocephalic and atraumatic. Right Ear: Tympanic membrane normal. Left Ear: Tympanic membrane normal. Mouth/Throat: Mouth: Mucous membranes are moist. Pharynx: Oropharynx is clear. No oropharyngeal exudate. Eyes: Conjunctiva/sclera: Conjunctivae normal. Pupils: Pupils are equal, round, and reactive to light. Neck: Thyroid: No thyromegaly. Vascular: No carotid bruit. Trachea: Trachea normal. Cardiovascular: Rate and Rhythm: Normal rate and regular rhythm. Pulses: Dorsalis pedis pulses are 2+ on the right side and 2+ on the left side. Posterior tibial pulses are 2+ on the right side and 2+ on the left side. Heart sounds: Normal heart sounds. Pulmonary: Effort: Pulmonary effort is normal. Breath sounds: Normal breath sounds and air entry. Abdominal: General: Abdomen is flat. Bowel sounds are normal. Palpations: Abdomen is soft. Tenderness: There is no abdominal tenderness. There is no guarding or rebound. Musculoskeletal: Cervical back: Neck supple. Right lower leg: No edema. Left lower leg: No edema. Lymphadenopathy: Cervical: No cervical adenopathy. Upper Body: Right upper body: No supraclavicular adenopathy. Left upper body: No supraclavicular adenopathy. Skin: General: Skin is warm and dry. Neurological: Mental Status: She is alert and oriented to person, place, and time. Cranial Nerves: Cranial nerves 2-12 are intact. Motor: Motor function is intact. Gait: Gait is intact. Psychiatric: Mood and Affect: Mood and affect normal. Speech: Speech normal. Behavior: Behavior is cooperative. Thought Content: Thought content normal. Cognition and Memory: Cognition normal. Judgment: Judgment normal. Monofilament done. Intact on the right foot. Diminished in the 3rd and 5th toes and midfoot on the left. [3] Social History Tobacco Use Smoking status: Never Smokeless tobacco: Never Vaping Use Vaping status: Never Used Substance Use Topics Alcohol use: Not Currently Comment: Patient reported no comsumption of alcohol currently. Drug use: Yes Types: Marijuana Comment: gummies-advised to stop 1 week prior to surgery documented in this encounter Miscellaneous Notes * Assessment & Plan Note - Ranjana Villarreal PA-C - 07/28/2025 1:03 PM EDTAssociated Problem(s): Type 2 diabetes mellitus with diabetic neuropathic arthropathy, with long-term current use of insulin (HCC) Compliant with insulin. Follows with Endo. Has been almost a year since she has been seen. She has an appointment this Sunday. She states her last A1c was a little over 7. She follows with ophthalmology. Does have diabetic retinopathy bilaterally. Sees a retinal specialist. She does have peripheral neuropathy secondary to diabetes as well. Follows with podiatry. She is on a statin. Not on an YARED. Stopped due to elevated creatinine. Will check urine microalbumin -lab sent to [facility]. Monofilament intact on the right foot in all regions. Diminished in the left foot on the 3rd and 5th toes and midfoot. * Assessment & Plan Note - Ranjana Villarreal PA-C - 07/28/2025 1:03 PM EDTAssociated Problem(s): Dyslipidemia Patient's last lipid profile in January showed total cholesterol 124, triglycerides 153, HDL 47 and LDLof 53. Patient is on Repatha and 80mg of Lipitor through cardiology. * Assessment & Plan Note - Ranjana Villarreal PA-C - 07/28/2025 1:03 PM EDTAssociated Problem(s): Amos's esophagus Patient had endoscopy January 2025 with [facility]. Will be due again in 2027. Compliant with PPI. Dysphagia has improved. * Assessment & Plan Note - Ranjana Villarreal PA-C - 07/28/2025 1:03 PM EDTAssociated Problem(s): Morbid obesity (HCC) Patient has tried diet, unable to tolerate GLP-1's. We discussed bariatric surgery. She may be interested in a gastric sleeve. Referral placed to Dr. Gongora at [facility] per patient's request. * Assessment & Plan Note - Ranjana Villarreal PA-C - 07/28/2025 1:03 PM EDTAssociated Problem(s): Recurrent major depressive disorder, in partial remission Follows with psych. Managed on trazodone for sleep. Has hydroxyzine as needed. She is on [id number] mg daily. Feels her pression is stable. * Assessment & Plan Note - Ranjana Villarreal PA-C - 07/28/2025 1:03 PM EDTAssociated Problem(s): Primary hypertension Compliant with blood pressure medications. Blood pressure is good. * Assessment & Plan Note - Ranjana Villarreal PA-C - 07/28/2025 1:03 PM EDTAssociated Problem(s): Gastroesophageal reflux disease without esophagitis Patient had endoscopy January 2025 with [facility]. Will be due again in 2027. Compliant with PPI. Dysphagia has improved. * Assessment & Plan Note - Ranjana Villarreal PA-C - 07/28/2025 1:03 PM EDTAssociated Problem(s): Carotid artery stenosis without cerebral infarction, bilateral Found incidentally when patient was in [facility] ER with left-sided headaches/blurred vision. Workup negative for stroke. Patient had CTA of the head and neck back in 2023 which showed partially calcified erythematous plaque involving both carotid bifurcations. 25% stenosis at the origins of both internal carotid arteries and there is mild tandem narrowing involving the cavernous segmentsof both internal carotid arteries. No intracranial large vessel occlusion. Patient saw vascular after this ER visit. Per their note they ordered a carotid duplex ultrasound which showed less than 50% stenosis to bilateral internal carotid arteries. Patient is medically managed. They will see her back in 2 to 3 years for reevaluation. Patient has not had any further symptoms. No carotid bruits noted on exam. * Assessment & Plan Note - Ranjana Villarreal PA-C - 07/28/2025 1:03 PM EDTAssociated Problem(s): Primary insomnia Follows with psych. Managed on trazodone for sleep. Has hydroxyzine as needed. She is on [id number] mg daily. Feels her pression is stable. * Assessment & Plan Note - Ranjana Villarreal PA-C - 07/28/2025 1:03 PM EDTAssociated Problem(s): IBS (irritable bowel syndrome) Manageable. Follows with GI. * Assessment & Plan Note - Ranjana Villarreal PA-C - 07/28/2025 1:03 PM EDTAssociated Problem(s): Charcot's arthropathy History of. Patient had surgery on the foot. Following with Ortho. * Assessment & Plan Note - Ranjana Villarreal PA-C - 07/28/2025 1:03 PM EDTAssociated Problem(s): Esophageal dysphagia Patient had endoscopy January 2025 with [facility]. Will be due again in 2027. Compliant with PPI. Dysphagia has improved. * Assessment & Plan Note - Ranjana Villarreal PA-C - 07/28/2025 1:03 PM EDTAssociated Problem(s): Chronic kidney disease, stage IV (severe) (HCC) In March patient had labs which showed a BUN of 39, creatinine of 2.59 and a GFR of 21. Put her at achronic kidney disease stage IV. Patient states she saw renal and they stopped her lisinopril. Repeat labs in June showed a creatinine of 1.63 and a GFR of 32. Patient is chronic kidney disease stage IIIb. * Assessment & Plan Note - Ranjana Villarreal PA-C - 07/28/2025 1:03 PM EDTAssociated Problem(s): Bronchiectasis without complication (HCC) History of COVID in 2020 requiring a day ICU stay in hospital admission for sepsis, DKA, pneumonia.History of COVID in [place] with acute respiratory failure with hypoxia and post COVID syndrome. Patient follows with pulmonary out of [facility]. Last seen Tober 2024. Managed onBreyna. Has an albuterol inhaler that she uses occasionally. * Assessment & Plan Note - Ranjana Villarreal PA-C - 07/28/2025 1:03 PM EDTAssociated Problem(s): Dyspnea on exertion History of COVID in 2020 requiring a day ICU stay in hospital admission for sepsis, DKA, pneumonia.History of COVID in [place] with acute respiratory failure with hypoxia and post COVID syndrome. Patient follows with pulmonary out of [facility]. Last seen Tober 2024. Managed onBreyna. Has an albuterol inhaler that she uses occasionally. 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 * Assessment & Plan Note - Ranjana Villarreal PA-C - 07/28/2025 1:03 PM EDTAssociated Problem(s): Diabetic neuropathy associated with type 2 diabetes mellitus (HCC) Compliant with insulin. Follows with Endo. Has been almost a year since she has been seen. She has an appointment this Sunday. She states her last A1c was a little over 7. She follows with ophthalmology. Does have diabetic retinopathy bilaterally. Sees a retinal specialist. She does have peripheral neuropathy secondary to diabetes as well. Follows with podiatry. She is on a statin. Not on an YARED. Stopped due to elevated creatinine. Will check urine microalbumin -lab sent to [facility]. Monofilament intact on the right foot in all regions. Diminished in the left foot on the 3rd and 5th toes and midfoot. * Assessment & Plan Note - Ranjana Villarreal PA-C - 07/28/2025 1:03 PM EDTAssociated Problem(s): Essential tremor Patient follows with neurology. On primidone. documented in this encounter Plan of Treatment Upcoming Encounters Date Type Department Care Team (Late st Contact Info) Description 08/06/2025 1:00 PM EST Appointment [facility] [address] [place] [address] Jared Rousseau MD [address] [address] Kemar Storey MD [address] [facility] [address] [place], [place] [address] 08/19/2025 8:00 AM EST Telemedicine Clinical Support [facility] 32 [facility] 1[address] [place] [phone] Meredith Waters NP 31 [facility] [address] [address] Reji Amos, DILIP [address] [place] [address] 08/26/2025 11:40 AM EST Procedure visit [facility] [facility] [address] [phone] 09/03/2025 8:15 AM EST Office Visit [facility] [address] [place] [address] Jared Rousseau MD [address] [place] [address] 10/06/2025 7:40 AM EST Office Visit [facility] [address] [phone] Maria D Hinojosa APRN [address] [place] [address] 11/24/2025 8:00 AM EST Office Visit [address] [place] [phone] Ranjana Villarreal PA-C [address] [place], [place] [address], [place] [address] Scheduled Orders Name Type Priority Associated Diagnoses Orde r Schedule Complete Blood Count, with Differential Lab Routine Annual physical exam Type 2 diabetes mellitus with diabetic neuropathic arthropathy, with long-term current use of insulin (HCC) Peripheral vascular disease Dyslipidemia Amos's esophagus without dysplasia Morbid obesity (HCC) Other diabetic neurological complication associated with type 2 diabetes mellitus (HCC) Recurrent major depressive disorder, in partial remission Primary hypertension Gastroesophageal reflux disease without esophagitis Carotid artery stenosis without cerebral infarction, bilateral Primary insomnia Irritable bowel syndrome with both constipation and diarrhea Charcot's arthropathy Esophageal dysphagia Chronic kidney disease, stage IV (severe) ([facility]) Ordered: 07/28/2025 Comprehensive Metabolic Panel Lab Routine Annual physical exam Type 2 diabetes mellitus with diabetic neuropathic arthropathy, with long-term current use of insulin (HCC) Peripheral vascular disease Dyslipidemia Amos's esophagus without dysplasia Morbid obesity (HCC) Other diabetic neurological complication associated with type 2 diabetes mellitus (HCC) Recurrent major depressive disorder, in partial remission Primary hypertension Gastroesophageal reflux disease without esophagitis Carotid artery stenosis without cerebral infarction, bilateral Primary insomnia Irritable bowel syndrome with both constipation and diarrhea Charcot's arthropathy Esophageal dysphagia Chronic kidney disease, stage IV (severe) ([facility]) Ordered: 07/28/2025 VITAMIN B12 AND FOLATE Lab Routine Annual physical exam Type 2 diabetes mellitus with diabetic neuropathic arthropathy, with long-term current use of insulin (HCC) Peripheral vascular disease Dyslipidemia Amos's esophagus without dysplasia Morbid obesity (HCC) Other diabetic neurological complication associated with type 2 diabetes mellitus (HCC) Recurrent major depressive disorder, in partial remission Primary hypertension Gastroesophageal reflux disease without esophagitis Carotid artery stenosis without cerebral infarction, bilateral Primary insomnia Irritable bowel syndrome with both constipation and diarrhea Charcot's arthropathy Esophageal dysphagia Chronic kidney disease, stage IV (severe) ([facility]) Ordered: 07/28/2025 TSH REFLEX FREE T4 Lab Routine Annual physical exam Type 2 diabetes mellitus with diabetic neuropathic arthropathy, with long-term current use of insulin (HCC) Peripheral vascular disease Dyslipidemia Amos's esophagus without dysplasia Morbid obesity (HCC) Other diabetic neurological complication associated with type 2 diabetes mellitus (HCC) Recurrent major depressive disorder, in partial remission Primary hypertension Gastroesophageal reflux disease without esophagitis Carotid artery stenosis without cerebral infarction, bilateral Primary insomnia Irritable bowel syndrome with both constipation and diarrhea Charcot's arthropathy Esophageal dysphagia Chronic kidney disease, stage IV (severe) ([facility]) Ordered: 07/28/2025 Lipid panel with nonHDL Lab Routine Annual physical exam Type 2 diabetes mellitus with diabetic neuropathic arthropathy, with long-term current use of insulin (HCC) Peripheral vascular disease Dyslipidemia Amos's esophagus without dysplasia Morbid obesity (HCC) Other diabetic neurological complication associated with type 2 diabetes mellitus (HCC) Recurrent major depressive disorder, in partial remission Primary hypertension Gastroesophageal reflux disease without esophagitis Carotid artery stenosis without cerebral infarction, bilateral Primary insomnia Irritable bowel syndrome with both constipation and diarrhea Charcot's arthropathy Esophageal dysphagia Chronic kidney disease, stage IV (severe) ([facility]) Ordered: 07/28/2025 Urinalysis with Microscopic Lab Routine Annual physical exam Type 2 diabetes mellitus with diabetic neuropathic arthropathy, with long-term current use of insulin (HCC) Peripheral vascular disease Dyslipidemia Amos's esophagus without dysplasia Morbid obesity (HCC) Other diabetic neurological complication associated with type 2 diabetes mellitus (HCC) Recurrent major depressive disorder, in partial remission Primary hypertension Gastroesophageal reflux disease without esophagitis Carotid artery stenosis without cerebral infarction, bilateral Primary insomnia Irritable bowel syndrome with both constipation and diarrhea Charcot's arthropathy Esophageal dysphagia Chronic kidney disease, stage IV (severe) ([facility]) Ordered: 07/28/2025 Microalbumin, Creatinine, Urine, Random Lab Routine Annual physical exam Type 2 diabetes mellitus with diabetic neuropathic arthropathy, with long-term current use of insulin (HCC) Peripheral vascular disease Dyslipidemia Amos's esophagus without dysplasia Morbid obesity (HCC) Other diabetic neurological complication associated with type 2 diabetes mellitus (HCC) Recurrent major depressive disorder, in partial remission Primary hypertension Gastroesophageal reflux disease without esophagitis Carotid artery stenosis without cerebral infarction, bilateral Primary insomnia Irritable bowel syndrome with both constipation and diarrhea Charcot's arthropathy Esophageal dysphagia Chronic kidney disease, stage IV (severe) ([facility]) Ordered: 07/28/2025 Scheduled Referrals Name Type Priority Associated Diagnoses Orde r Schedule Amb referral to Bariatric Surgery Outpatient Referral Routine Type 2 diabetes mellitus with diabetic neuropathic arthropathy, with long-term current use of insulin (HCC) Morbid obesity (HCC) Coronary artery disease involving [place] coronary artery of [place] heart without angina pectoris Ordered: 07/28/2025 documented as of this encounter Visit Diagnoses Diagnosis Annual physical exam- Primary Routine general medical examination at a [facility] facility Type 2 diabetes mellitus with diabetic neuropathic arthropathy, with long-term current use of insulin (HCC) Diabetic polyneuropathy associated with type 2 diabetes mellitus (HCC) Diabetic retinopathy associated with type 2 diabetes mellitus, macular edema presence unspecified, unspecified laterality, unspecified retinopathy severity (HCC) Dyslipidemia Other and unspecified hyperlipidemia Amos's esophagus without dysplasia Gastroesophageal reflux disease without esophagitis Esophageal reflux Esophageal dysphagia Dysphagia, pharyngoesophageal phase Morbid obesity (HCC) Morbid obesity Recurrent major depressive disorder, in partial remission Primary insomnia Persistent disorder of initiating or maintaining sleep Primary hypertension Unspecified essential hypertension Carotid artery stenosis without cerebral infarction, bilateral Irritable bowel syndrome with both constipation and diarrhea Charcot's arthropathy Tabes dorsalis Chronic kidney disease, stage IV (severe) (HCC) Chronic kidney disease, Stage IV (severe) Bronchiectasis without complication (HCC) Dyspnea on exertion Other dyspnea and respiratory abnormality Post-COVID syndrome Coronary artery disease involving [place] coronary artery of [place] heart without angina pectoris Snoring Other dyspnea and respiratory abnormality Back pain, unspecified back location, unspecified back pain laterality, unspecified chronicity Primary osteoarthritis involving multiple joints Recurrent UTI Urinary tract infection, site not specified Essential tremor Peripheral vascular disease Unspecified peripheral vascular disease Other diabetic neurological complication associated with type 2 diabetes mellitus (HCC) Occipital neuralgia of left side Stage 3 chronic kidney disease, unspecified whether stage 3a or 3b CKD ([facility]) documented in this encounter Care Teams Digital Marketing Officer Relationship Specialty Start Date End Date Ranjana Villarreal PA-C [address] [place] [address] PCP - General Internal Medicine 11/03/24 documented as of this encounter
--- NOTE | 2025-07-28 15:13 | A.OFFVIS_ITS ---
Intake Visit Reasons: 3m/PVR Intake Note: Patient presents today for: 3m/PVR Urology Medications: estradiol, vitC, methanmine hippurate Blood Thinner: aspirin PVR: 0mls Software Educator Required: No Accompanied by: Self / Same As Patient Allergies cephalexin Allergy (Intermediate, Verified 07/28/25 19:43) Rash metformin Adverse Reaction (Verified 07/28/25 19:43) diarrhea and vomiting Medication List - Last Reconciled 07/28/25 by DARVIN Contreras acetaminophen ER 650 mg PO Q12H PRN albuterol sulfate 2.5 mg (3 mL) inhalation Q4-6H PRN albuterol sulfate 90 mcg/actuation 2 puffs PO Q4-6H PRN amlodipine 5 mg PO DAILY ascorbic acid (vitamin C) 1 g PO DAILY 90 days aspirin 81 mg PO DAILY atorvastatin 80 mg PO DAILY blood-glucose sensor (Unbound G6 Sensor device) As directed blood-glucose transmitter (Dexcom G6 Transmitter device) As directed budesonide-formoterol 160-4.5 mcg/actuation (Symbicort) 2 puffs inhalation Q12H bupropion HCl XL 300 mg PO DAILY estradiol 0.01%(0.1mg/gram) 2 grams vaginal DAILY 90 days evolocumab (Repatha SureClick) 140 mg subcut Q2W 90 days fluticasone propionate 50 mcg/actuation (Flonase Allergy Relief) 1 spray intranasal DAILY gabapentin 600 mg (2 x 300 mg) PO TID 90 days hydrochlorothiazide 25 mg PO DAILY hydroxyzine HCl 10 mg PO DAILY PRN insulin glargine (Basaglar KwikPen U-100 Insulin) 50 units subcut QPM insulin lispro (Humalog KwikPen (U-100) Insulin) 10 sliding scale doses subcut USEASDIRECTD ipratropium bromide 2 sprays intranasal BID ipratropium-albuterol 0.5 mg-3 mg(2.5 mg base)/3 mL 3 mL inhalation Q6H PRN losartan 25 mg PO DAILY methenamine hippurate 1 g PO DAILY 90 days methocarbamol 750 mg PO Q6H PRN naltrexone 25 mg PO DAILY nitrofurantoin monohyd/m-cryst 100 mg (Macrobid) 100 mg PO BID 10 days pantoprazole 40 mg PO DAILY polyethylene glycol 3350 (Miralax) 17 grams PO DAILY 30 days primidone 50 mg PO BEDTIME 90 days trazodone mg PO HPI Comments Details: Ewelina is a very pleasant 60-year-old female patient of Dr. Watts. She has a past medical history of bilateral carotid stenosis, atherosclerotic cardiovascular disease, NSTEMI, chronic headaches, GERD hope, hyperlipidemia, depression, pneumonia, sepsis, Amos's esophagus, dyslipidemia, hypertension, and diabetes. She presents to the office today for a follow up. In discussion with the patient today she reports since her last office visit here she seeked urgent care services in [place] for UTI like symptoms in January as well as in June and has since completed antibiotic therapy for these urinary tract infections. She currently reports she has been having intermittent episodes of dysuria. She reports compliance with methenamine, vitamin-C, and Estrace cream as prescribed. In office urinalysis results reviewed with the patient today 3+ protein 2+ microscopic hematuria. She does report following up with Nephrology regarding proteinuria. Urine cultures are as follows: 07/23 Staphylococcus epidermis, 08/23 lactobacillus species, 03/24 E coli, 06/24 E coli, 08/24 E coli, 08/24 E coli, 10/25 E coli, and 01/23 E coli. Urine Cytology: 03/24 Negative for high-grade urothelial carcinoma She reports she continue to follow-up with endocrinology, Nephrology, gastroenterology, pulmonology, and her PCP for ongoing medical issues. PVR 0 mL. When asked she does report compliance with Estrace cream as prescribed. Previous workup has included a abdominal ultrasound 03/24 noting bilateral kidneys with no calculi, lesions, and or hydronephrosis. Patient also with recent abdominal MRI 10/25 that notes the kidneys are unremarkable. We discussed at length potential causes of recurrent urinary tract infections as well as further treatment options and risks and benefits of these treatment options. We discuss near future in office cystoscopy for further assessment evaluation. We also discussed at length the importance of weight loss and management and diabetes for improvement in lower urinary tract symptoms as well as overall health and well-being. She denies hematuria, foul smelling urine, changes to urinary stream, flank pain, fever, and or chills. She does however report episodes of mixed urinary incontinence. We did discuss potential causes of mixed urinary incontinence as well as further treatment options and risks and benefits of these treatment options. All questions were answered. She otherwise offers no other issues or concerns at this time. [facility] Medical History Carotid stenosis, bilateral Elevated serum GGT level Atherosclerotic cardiovascular disease Non-ST elevation NH (NSTEMI) Action tremor Chronic headaches GERD (gastroesophageal reflux disease) Hyperlipidemia Depression Pneumonia Sepsis Barretts esophagus Dyslipidemia HTN (hypertension) Charcot's joint of foot Diabetes Surgical History History of esophagogastroduodenoscopy (EGD) Hx of colonoscopy H/O foot surgery Hx of cholecystectomy H/O: hysterectomy Family History Son Substance use disorder Father Substance use disorder Mother Substance use disorder Family/Other Substance use disorder Maternal Grandfather Heart problem Maternal Uncle Heart problem Paternal Grandmother Heart problem Sister Heart problem Social History Household Members: None Housing: Condominium Do you presently have visiting nurse or other home services: No Alcohol intake: never Patient Tobacco Use Status: Never used Tobacco e-Cigarette/Vaping Use: Never Used Second Hand Smoke Exposure: No Advance Directives Date on File: 07/25/23 service: No Current occupational status: employed 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 Current occupational exposures/hazards: No Cognitive needs: No Hearing needs: No Vision needs: No Review of Systems Const Reports no additional complaints Eyes Reports no additional complaints ENT Reports no additional complaints Card Reports as per [facility] Resp Reports as per [facility] GI Reports as per [facility] Reports as per [facility] Musc Reports as per HPI Neuro Reports no additional complaints Psych Reports no additional complaints Endo Reports as per HPI Physical Exam Const General: cooperative, healthy appearing, comfortable, no acute distress, well developed, alert and awake Nutritional Appearance: overweight Orientation/consciousness: patient oriented x3 Limitations: no limitations HEENT Head: Yes normal to inspection, Yes normocephalic and Yes atraumatic Ears: hearing grossly normal bilaterally Eyes General: appearance normal, both eyes and all related structures Neck Neck: Yes normal visual inspection and Yes trachea midline Chest Chest palpation & inspection: normal inspection of the chest Resp Effort & Inspection: normal respiratory effort and able to speak in complete sentences Cardio Rate: regular rate GI Inspection: Yes normal to inspection General: Yes no CVA tenderness Back/Spine/Pelvis Back: no CVA tenderness Skin General skin exam: no rashes or lesions noted Neuro General: patient oriented x3 Extrem General: Yes normal to inspection Psych Appearance: grossly normal and well kempt Mental Status: mental status grossly normal Speech and movement: Normal speech and movement present and Clear speech present Affect: normal affect Attitude: cooperative Thought process: Normal thought process present Thought content: Normal thought content present Insight: Fair insight present (Psych) Judgement: Fair judgement present (Psych) Office Procedures Post Void Residual Post Residual Void Post Void Residual (PVR): 0 [id number] Void Residual by ultrasound Results AMB Urinalysis, Automated UA Leukoctes 0 Sole/uL Last Edit by ELSA Ge on 07/28/25 15:34 UA Nitrite Last Edit by ELSA Ge on 07/28/25 15:34 UA Urobilinogen 0.2 mg/dL Last Edit by ELSA Ge on 07/28/25 15:3 4 UA Protein 300 mg/dL Last Edit by Trice Parsons CCM on 07/28/25 15:34 UA pH 6.0 Last Edit by ELSA Ge on 07/28/25 15:34 UA Blood 80 Willam/uL Last Edit by Trice Parsons CCM on 07/28/25 15:34 UA Specific [place] 1.020 Last Edit by ELSA Ge on 07/28/25 15: 34 UA Ketone Negative Last Edit by ELSA Ge on 07/28/25 15:34 UA Bilirubin 0 mg/dL Last Edit by Trice Parsons CCM on 07/28/25 15:34 UA Glucose 0 mg/dL Last Edit by ELSA Ge on 07/28/25 15:34 AMB Urinalysis, Automated UA Leukoctes 0 Sole/uL Last Edit by ELSA Ge on 07/28/25 16:02 UA Nitrite Last Edit by Trice Parsons CCM on 07/28/25 16:02 UA Urobilinogen 0.2 mg/dL Last Edit by Trice Parsons CCM on 07/28/25 16:0 2 UA Protein 300 mg/dL Last Edit by ELSA Ge on 07/28/25 16:02 UA pH 6.0 Last Edit by ELSA Ge on 07/28/25 16:02 UA Blood 80 Willam/uL Last Edit by ELSA Ge on 07/28/25 16:02 UA Specific [place] 1.020 Last Edit by ELSA Ge on 07/28/25 16: 02 UA Ketone Last Edit by ELSA Ge on 07/28/25 16:02 UA Bilirubin 0 mg/dL Last Edit by ELSA Ge on 07/28/25 16:02 UA Glucose 0 mg/dL Last Edit by ELSA Ge on 07/28/25 16:02 Results Reviewed Results Reviewed: Laboratory Last Values Urine pH (Auto) 6.0 07/28/25 16:02 Specific [place] (Auto) 1.020 07/28/25 16:02 Urine Protein (Auto) 300 mg/dL 07/28/25 16:02 Glucose (UA)(Auto) 0 mg/dL 07/28/25 16:02 Urine Ketones (Auto) Negative 07/28/25 15:31 Urine Blood (Auto) 80 Willam/uL 07/28/25 16:02 Urine Bilirubin (Auto) 0 mg/dL 07/28/25 16:02 Urine Urobilinogen (Auto) 0.2 mg/dL 07/28/25 16:02 Leukocyte Esterase (Auto) 0 Sole/uL 07/28/25 16:02 Assessment & Plan Assessment & Plan (1) Recurrent UTI: Code(s): N39.0 - Urinary tract infection, site not specified Category: Medical (2) Dysuria: Code(s): R30.0 - Dysuria Category: Medical (3) Microscopic hematuria: Code(s): R31.29 - Other microscopic hematuria Category: Medical (4) Urinary incontinence, mixed: Code(s): N39.46 - Mixed incontinence Category: Medical Plan In office urinalysis results reviewed with the patient today; will send for microgen; will await results for potential treatment. Continue Estrace cream vitamin-C, and methenamine as prescribed. We did discussed near future in office cystoscopy for further assessment evaluation. Will obtain retroperitoneal ultrasound for further assessment evaluation. We did discussed calling office with any UTI like symptoms. We also discussed worsening symptoms. We discussed potential causes of recurrent urinary tract infections as well as further treatment options and risks and benefits of these treatment options. All questions were answered. We also discussed the importance of weight loss and management and diabetes for improvement in urological health as well as overall health and well-being. We also discussed further treatment options of mixed urinary incontinence. Discussed UTI prevention with D mannose supplement, vitamin-C, increasing fluid intake, behavioral therapy with timed voiding, perineal hygiene and postcoital voiding, and management of constipation with stool softeners and increased fiber intake. Follow-up in 3 months with imaging and PVR; or sooner with any issues, concerns, and or questions. Orders: Orders AMB Post Void Residual by ultrasound Today N39.0 - Urinary tract infection, site not specified US retroperitoneal comp Today N39.0 - Urinary tract infection, site not specified, R30.0 - Dysuria AMB Urinalysis Automated Today Z13.9 - Encounter for screening, unspecified AMB Urinalysis Automated Today Z13.9 - Encounter for screening, unspecified Medications: Discontinued nitrofurantoin monohyd/m-cryst 100 mg (Macrobid) HOLD Methenamine while on this course of medication. Must administer with a meal/food Discontinued Reason: Doctor's Order 100 mg PO BID 10 days 20 caps 0RF Patient Instructions: The patient had an opportunity to ask questions regarding the treatment plan. All questions were answered. Physical exam, labs, and imaging were discussed and reviewed in detail. As well as risks, benefits, and discussion of treatment choices. No major barriers to understanding were identified. The patient expressed understanding and agreement with the above treatment plan. The patient was made aware they should contact our office by phone for worsening of their current condition, the appearance of new symptoms, or with any questions or concerns. Compliance is encouraged with any medications and follow up testing that is ordered. It is a privilege to be allowed the opportunity to participate in? your urological care.? Again, if you have any questions or concerns If you have any questions or concerns please do not hesitate to contact me. The office is [phone]. This note is constructed using voice recognition software. While every effort has been made to ensure accuracy lap winder errors may have been included. Yours sincerely, SALO Contreras- Coding Level of Care Code Est Pt Level 4 (98787) Diagnoses Recurrent UTI N39.0 Dysuria R30.0 Microscopic hematuria R31.29 Urinary incontinence, mixed N39.46 CPT Codes Post Residual Void - PVR CPT Code: 02340-Rhvg Void Residual by ultrasound ([id number])
--- OUTSIDE RECORDS SUMMARY | 2025-07-28 19:37 | XMS_ITS | Encounter Summary ---
Author Organization [facility] Address [address] [place] [address] Care Team Providers Care Sample Room Supervisor Name Role Phone Ranjana Villarreal PA-C Primary Care Provi erika Encounter Details Date Type Department Care Team (Late st Contact Info) Description 12/09/2024 Scanned Document [facility] PULMONOLGY SCAN Pulmonary, Scan Social History [...] 08/06/2025 1:00 PM EST [facility]ointment [facility] [address] [phone] Jared Rousseau MD [address] [place] [phone] Kemar Storey MD [address] [facility] [address] [place] [address] 08/19/2025 8:00 AM EST Telemedicine Clinical Support [facility] [address] [place] [phone] Meredith Waters NP [address] [place] [address] [address] [address] Reji Amos, DILIP [address] [place] [address] 08/26/2025 11:40 AM EST Procedure visit [facility] [address] [phone] 09/03/2025 8:15 AM EST [facility] [address] [place] [address] Jared Rousseau MD [address] [place] [phone] 10/06/2025 7:40 AM EST Office Visit [facility] [address] [phone] Maria D Hinojosa APRN [address] [place] [address] 11/24/2025 8:00 AM EST Office Visit [address] [place] [address] Ranjana Villarreal PA-C [address] [place] [address] documented as of this encounter Visit Diagnoses Not on filedocumented in this encounter Care Teams Sample Room Supervisor Relationship Specialty Start Date End Date Ranjana Villarreal PA-C [address] [place] [address] PCP - General Internal Medicine 11/03/24 documented as of this encounter
--- OUTSIDE RECORDS SUMMARY | 2025-07-28 19:37 | XMS_ITS | Encounter Summary ---
Author Organization [facility]ly [facility] Address 100 [place] [address] Care Team Providers Care Rubber Goods Tester Name Role Phone Ranjana Villarreal PA-C Primary Care Provi erika Encounter Details Date Type Department Care Team (Late st Contact Info) Description 03/19/2025 Scanned Document [facility] 12[address] [place] [address] Pulmonary, Scan Social History Tobacco Use Types [...] 08/06/2025 1:00 PM EST [facility]ment [facility] [address] [address] Jared Rousseau MD [address] [address] Kemar Storey MD 499 [facility] [address] [place] [address] 08/19/2025 8:00 AM EST Telemedicine Clinical Support [facility] [place] [facility] [address] [place] [address] 1st [place] [address] Meredith Waters NP 31 [facility] [address] [address] Reji Amos, DILIP 32 [place] [address] 08/26/2025 11:40 AM EST Procedure visit [facility] Pulmonary [address] [phone] 09/03/2025 8:15 AM EST Office [facility] 7 [facility] [address] [place] [address] Jared Rousseau MD [address] [place] [address] 10/06/2025 7:40 AM EST Office Visit [facility] Pulmonary [place] 100 [place] [address] Maria D Hinojosa APRN [address] [place] [address] 11/24/2025 8:00 AM EST Office Visit [facility] [address] [place] [address] Ranjana Villarreal PA-C [address] [place] [address] documented as of this encounter Visit Diagnoses Not on filedocumented in this encounter Care Teams Rubber Goods Tester Relationship Specialty Start Date End Date Ranjana Villarreal PA-C [address] [place] [address] PCP - General Internal Medicine 11/03/24 documented as of this encounter
--- OUTSIDE RECORDS SUMMARY | 2025-07-28 19:37 | XMS_ITS | Encounter Summary ---
Author Organization [facility] Address 100 [place] [address] Care Team Providers Care Airline Attendant Name Role Phone Ranjana Villarreal PA-C Primary Care Provi erika Encounter Details Date Type Department Care Team (Late st Contact Info) Description 05/06/2025 Telephone [facility] Vascular [facility] End[facility] Surgery Ethel [address] [phone] Basia Brandt N, BOX INSPECTOR [address] [phone] Social History Tobacco Use Types Packs/Day Years [...] 08/06/2025 1:00 PM EST Appointment [facility] 150 [place] [address] Jared Rousseau MD [address] [address] Kemar Storey MD [address] [place] [address] [address] [place], [place] [address] 08/19/2025 8:00 AM EST Telemedicine Clinical Support [facility] [place] [facility] 32 [facility] 1st [place] [address] Meredith Waters NP 31 [facility] [address] [address] Reji Amos, DILIP 32 [place] [address] 08/26/2025 11:40 AM EST Procedure visit [facility] Pulmonary [place] 699 [place] [address] 09/03/2025 8:15 AM EST Office [facility] 7 [facility] [address] [place] [address] Jared Roussaeu MD [address] [place] [address] 10/06/2025 7:40 AM EST Office Visit [facility] Pulmonary [place] [address] Maria D Hinojosa, BOX INSPECTOR 699 [place] [address] 11/24/2025 8:00 AM EST Office Visit [address] [place] [address] Ranjana Villarreal PA-C 100 [place] [address] documented as of this encounter Visit Diagnoses Not on filedocumented in this encounter Care Teams Airline Attendant Relationship Specialty Start Date End Date Ranjana Villarreal PA-C 100 [place] [address] PCP - General Internal Medicine 11/03/24 documented as of this encounter
--- OUTSIDE RECORDS SUMMARY | 2025-07-28 19:37 | XMS_ITS | Encounter Summary ---
Author Organization [facility] Address 100 [place] [address] Care Team Providers Care Assistant Account Manager Name Role Phone Ranjana Villarreal PA-C Primary Care Provi erika Encounter Details Date Type Department Care Team (Late st Contact Info) Description 05/04/2025 Scanned Document [facility] 1290 [place] [address] Nephrology, Scan Social History Tobacco Use Types [...] 08/06/2025 1:00 PM EST [facility]ment [facility] [address] [address] Jared Rousseau MD [address] [address] Kemar Storey MD [address] [place] [address] [address] [place] [address] 08/19/2025 8:00 AM EST Telemedicine Clinical Support [facility] [place] [facility] [address] [place] [address] 1st [place] [address] Meredith Waters NP 31 [facility] [address] [address] Reji Amos, DILIP 32 [place] [address] 08/26/2025 11:40 AM EST Procedure visit [facility] Pulmonary [address] [phone] 09/03/2025 8:15 AM EST Office Visit [facility] 7 [facility] [address] [place] [address] Jared Rousseau MD [address] [place] [address] 10/06/2025 7:40 AM EST Office Visit [facility] Pulmonary [place] 100 [place] [address] Maria D Hinojosa APRN [address] [place] [address] 11/24/2025 8:00 AM EST Office Visit [facility] [address] [place] [address] Ranjana Villarreal PA-C [address] [place] [address] documented as of this encounter Visit Diagnoses Not on filedocumented in this encounter Care Teams Assistant Account Manager Relationship Specialty Start Date End Date Ranjana Villarreal PA-C [address] [place] [address] PCP - General Internal Medicine 11/03/24 documented as of this encounter
--- OUTSIDE RECORDS SUMMARY | 2025-07-28 19:37 | XMS_ITS | Encounter Summary ---
Author Organization [facility] Address 100 [place] [address] Care Team Providers Care Riveter Hand Name Role Phone Ranjana Villarreal PA-C Primary Care Provi erika Encounter Details Date Type Department Care Team (Late st Contact Info) Description 05/15/2025 Scanned Document [facility] 12[address] [place] [address] Cardiology, Scan Social History Tobacco Use Types [...] 08/06/2025 1:00 PM EST [facility]ment [facility] [address] [address] Jared Rousseau MD [address] [address] Kemar Storey MD 499 [facility] [address] [place] [address] 08/19/2025 8:00 AM EST Telemedicine Clinical Support [facility] [place] [facility] [address] [place] [address] 1st [place] [address] Meredith Waters NP 31 [facility] [address] [address] Reji Amos, DILIP 32 [place] [address] 08/26/2025 11:40 AM EST Procedure visit [facility] Pulmonary [address] [phone] 09/03/2025 8:15 AM EST Office [facility] 7 [facility] [address] [place] [address] Jared Rousseau MD [address] [place] [address] 10/06/2025 7:40 AM EST Office Visit [facility] Pulmonary [place] 100 [place] [address] Maria D Hinojosa APRN [address] [place] [address] 11/24/2025 8:00 AM EST Office Visit [facility] [address] [place] [address] Ranjana Villarreal PA-C [address] [place] [address] documented as of this encounter Visit Diagnoses Not on filedocumented in this encounter Care Teams Riveter Hand Relationship Specialty Start Date End Date Ranjana Villarreal PA-C [address] [place] [address] PCP - General Internal Medicine 11/03/24 documented as of this encounter
--- OUTSIDE RECORDS SUMMARY | 2025-07-28 19:37 | XMS_ITS | Encounter Summary ---
Author Organization [facility] Address [address] [place] [address] Care Team Providers Care Haul Cane Brakeman Name Role Phone Ranjana Villarreal PA-C Primary Care Provi eriak Encounter Details Date Type Department Care Team ([facility] st Contact Info) Description 05/07/2025 Scanned Document [facility] [address] [phone] Jared Rousseau MD [address] [place] [address] Social History Tobacco Use Types Packs/Day Years [...] 08/06/2025 1:00 PM EST Appointment [facility] [address] [address] Jared Rousseau MD [address] [address] Kemar Storey MD [address] [place] [address] [address] [place] [address] 08/19/2025 8:00 AM EST Telemedicine Clinical Support [facility] [place] [facility] 32 [facility] 1st [place] [address] Meredith Waters NP 31 [facility] [address] [address] 32 [place] [address] 08/26/2025 11:40 AM EST Procedure visit [facility] Pulmonary [place] 699 [place] [address] 09/03/2025 8:15 AM EST Office [facility] 7 [facility] [address] [place], [place] [address] Jared Rousseau MD [address] [place] [address] 10/06/2025 7:40 AM EST Office Visit [facility] Pulmonary [place] 100 [place] [address] Maria D Hinojosa, BARREL RAISER 699 [place] [address] 11/24/2025 8:00 AM EST Office Visit [facility] 100 [facility] [address] [place] [address] Ranjana Villarreal PA-C 100 [place] [address] documented as of this encounter Visit Diagnoses Not on filedocumented in this encounter Care Teams Haul Cane Brakeman Relationship Specialty Start Date End Date Ranjana Villarreal PA-C 100 [place] [address] PCP - General Internal Medicine 11/03/24 documented as of this encounter
--- OUTSIDE RECORDS SUMMARY | 2025-07-28 19:37 | XMS_ITS | Encounter Summary ---
Author Organization [facility] Address 100 [place] [address] Care Team Providers Care Family And Consumer Science Professor Name Role Phone Ranjana Villarreal PA-C Primary Care Provi erika Encounter Details Date Type Department Care Team (Latest Contact Info) Description 07/28/2025 Travel Social History Tobacco Use Types Packs/Day [...] any time in the past 12 m [facility], were you homeless or living in a halfway (including now)? No 07/27/2025 [facility] Utilities Answer Date Recorded In [...] 1:00 PM EST Appointment [facility] [address] [address] Jared Rousseau MD [address] [place] [address] Kemar Storey MD [address] [place] [address] 300 [place] [address] 08/19/2025 8:00 AM EST Telemedicine Clinical Support [facility] [place] [facility] [address] [place] [address] 1st [place] [address] Meredith Waters NP 31 [facility] [address] [address] Reji Amos, DILIP 32 [place] [address] 08/26/2025 11:40 AM EST Procedure visit [facility] Pulmonary [address] [phone] 09/03/2025 8:15 AM EST Office Visit [facility] [address] [place] [address] Jared Rousseau MD [address] [place] [address] 10/06/2025 7:40 AM EST Office Visit [facility] Pulmonary [address] [phone] Maria D Hinojosa APRN [address] [place] [address] 11/24/2025 8:00 AM EST Office Visit [address] 101 [place] [address] Ranjana Villarreal PA-C [address] [place] [address] documented as of this encounter Visit Diagnoses Not on filedocumented in this encounter Care Teams Family And Consumer Science Professor Relationship Specialty Start Date End Date Ranjana Villarreal PA-C [address] [place] [address] PCP - General Internal Medicine 11/03/24 documented as of this encounter
--- OUTSIDE RECORDS SUMMARY | 2025-07-28 19:37 | XMS_ITS | Encounter Summary ---
Author Organization [facility] Address 100 [place] [address] Care Team Providers Care Portrait Consultant Name Role Phone Ranjana Villarreal PA-C Primary Care Provi erika Encounter Details Date Type Department Care Team (Late st Contact Info) Description 12/25/2024 Scanned Document [facility] NEPHROLOGY SCAN Nephrology, Scan Social [...] 08/06/2025 1:00 PM EST [facility]ointment [facility] [address] [address] Jared Rousseau MD [address] [place] [address] Kemar Storey MD 499 [facility] [address] [place] [address] 08/19/2025 8:00 AM EST Telemedicine Clinical Support [facility] [place] [facility] [address] [place] [phone] Meredith Waters NP 31 [facility] [address] [address] Reji Amos, DILIP 32 [place] [address] 08/26/2025 11:40 AM EST Procedure visit [facility] Pulmonary [address] [phone] 09/03/2025 8:15 AM EST Office [facility] [address] [place] [address] Jared Rousseau MD [address] [place] [address] 10/06/2025 7:40 AM EST Office Visit [facility] Pulmonary [address] [phone] Maria D Hinojosa APRN [address] [place] [address] 11/24/2025 8:00 AM EST Office Visit [address] [place] [address] Ranjana Villarreal PA-C [address] [place] [address] documented as of this encounter Visit Diagnoses Not on filedocumented in this encounter Care Teams Portrait Consultant Relationship Specialty Start Date End Date Ranjana Villarreal PA-C [address] [place] [address] PCP - General Internal Medicine 11/03/24 documented as of this encounter
--- OUTSIDE RECORDS SUMMARY | 2025-07-28 19:38 | XMS_ITS | Encounter Summary ---
Author Organization [facility] Address 100 [place] [address] Care Team Providers Care Furnace Filler Name Role Phone Ranjana Villarreal PA-C Primary Care Provi erika Encounter Details Date Type Department Care Team (Late st Contact Info) Description 04/07/2025 Scanned Document [facility] 1290 [place] [address] Nephrology, Scan Social History Tobacco Use Types [...] 08/06/2025 1:00 PM EST [facility]ointment [facility] [address] [address] Jared Rousseau MD [address] [address] Kemar Storey MD [address] [place] [address] [address] [place] [address] 08/19/2025 8:00 AM EST Telemedicine Clinical Support [facility] [place] [facility] [address] [place] [address] 1st [place] [address] Meredith Waters NP 31 [facility] [address] [address] Reji Amos, DILIP 32 [place] [address] 08/26/2025 11:40 AM EST Procedure visit [facility] Pulmonary [address] [phone] 09/03/2025 8:15 AM EST Office [facility] 7 [facility] [address] [place] [address] Jared Rousseau MD [address] [place] [address] 10/06/2025 7:40 AM EST Office Visit [facility] Pulmonary [place] 100 [place] [address] Maria D Hinojosa APRN [address] [place] [address] 11/24/2025 8:00 AM EST Office Visit [facility] [address] [place] [address] Ranjana Villarreal PA-C [address] [place] [address] documented as of this encounter Visit Diagnoses Not on filedocumented in this encounter Care Teams Furnace Filler Relationship Specialty Start Date End Date Ranjana Villarreal PA-C [address] [place] [address] PCP - General Internal Medicine 11/03/24 documented as of this encounter
--- OUTSIDE RECORDS SUMMARY | 2025-07-28 19:38 | XMS_ITS | Encounter Summary ---
Author Organization [facility] Address 100 [place] [address] Care Team Providers Care Jute Bag Clipper Name Role Phone Ranjana Villarreal PA-C Primary Care Provi erika Encounter Details Date Type Department Care Team (Late st Contact Info) Description 04/01/2025 Scanned Document [address] [place] [address] Primary Care, Scan Social History [...] 1:00 PM EST Appointment [facility] [address] [address] Jared Rousseau MD [address] [address] Kemar Storey MD [address] [place] [address] [address] [place], [place] [address] 08/19/2025 8:00 AM EST Telemedicine Clinical Support [facility] [place] [facility] 32 [facility] 1st [place] [address] Meredith Waters NP 31 [facility] [address] [address] [place] [address] 08/26/2025 11:40 AM EST Procedure visit [facility] Pulmonary [address] [phone] 09/03/2025 8:15 AM EST Office [facility] 7 [facility] [address] [place] [address] Jared Rousseau MD [address] [place] [address] 10/06/2025 7:40 AM EST Office Visit [facility] Pulmonary [address] [phone] Maria D Hinojosa APRN 699 [place] [address] 11/24/2025 8:00 AM EST Office Visit [facility] [address] [place] [address] Ranjana Villarreal PA-C [address] [place] [address] documented as of this encounter Visit Diagnoses Not on filedocumented in this encounter Care Teams Jute Bag Clipper Relationship Specialty Start Date End Date Ranjana Villarreal PA-C [address] [place] [address] PCP - General Internal Medicine 11/03/24 documented as of this encounter
--- OUTSIDE RECORDS SUMMARY | 2025-07-28 19:38 | XMS_ITS | Continuity of Care Document ---
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 04/24/2025 Novolog Cklmsrz130Iroc/ML Solution Pen-Inject inject 10 subcutaneously units 3 times a day before meals 30ml E11.42 Susan Bui M.D. 06/30/2024 Baqsimi One Drig8jz/Dose Powder spray into nostril as needed for low sugar reaction 1units Susan Bui M.D. 02/14/2024 Lantus Zvtxdnkf944Fkun/ML Solution Pen-Inject inject 50 units daily as directed 45ml E11.42 Susan Bui M.D. 10/26/2023 Tuzkbqxiu81ek Tablets Take 1 Tablet By Mouth Every Day For 30 Days Lynnette Cardona MD Atorvastatin Mqlhwej47mo Tablets 1 by mouth every day Unknown Amlodipine Wlydolso4fp Tablets Take 1 Tablet (5 MG Total) By Mouth Daily. Unknown Repatha Uxayyikoe315or/ml Solution Auto-Inject inject 1 syringe under the skin every 2 weeks Unknown Aspirin 8181mg Tablets DR 1 by mouth every day Susan Bui M.D. Hydroxyzine QDX49ip Tablets Take 1 Tablet By Mouth Every Day as Needed Unknown Dexcom G6 SensorMisc use 1 sensor every 10 days 9units E11.42 Susan Bui M.D. Dexcom G6 SensorMisc Please See Attached For Detailed Directions Unknown Wheukddzyj438lj Capsules Take 2 Capsule By Mouth Three Times A Day Unknown Dexcom G6 TransmitterMisc To Use With Sensors DX E11.42 1units E11.42 Susan Bui M.D. Pantoprazole Nivtih09cr Tablets DR Take 1 Tablet By Mouth Every Morning (Before Breakfast) For 360 Days. Unknown Albuterol Sulfate IWP098(90Base) mcg/Act Aerosol Take 2 Puffs By Mouth Every 4 Hours as Needed For Wheeze Unknown Ipratropium Bromide0.06% Solution Administer 2 Sprays Into Each Nostril Every 6 Hours as Needed For Rhinitis. Unknown Tnkoiukjmx78tn Tablets Take 1 Tablet By Mouth Every Day Unknown Hyoscyamine Sulfate0.125mg Tablets Take 1 Tablet By Mouth 4 Times Daily as Needed For Cramping Or Diarrhea For Up T Unknown Basaglar Weplabe422Qfpy/ML Solution Pen-Inject Inject 55 Units Into The Skin AT Bedtime 60ml E11.42 Susan Bui M.D. Trazodone VQY130qr Tablets Take 1 Tablet By Mouth Everyday [...] Inhouse Hemoglobin A1c 6.9% Gad65 Autoantibodies 08/15/2023 [facility] Gad65 Autoantibodies <5.0 1 Islet Cell Antibody 512 08/15/2023 [facility] Islet Cell Antibody 512 <7.5 2 Insulin Antibody 08/15/2023 [facility] Insulin Antibody 12 High 3 1 Reference range: 0.0 to 5.0 Unit: U/mL Test performed at [address] [address] 2 Unit: U/mL (NOTE) Reference Range: <7.5 Negative > or EQ 7.5 Positive Test performed by [facility], [address] [place] [address] 3 Unit: uU/mL (NOTE) This test is also known as insulin autoantibody or IAA. This test was developed and its performance characteristics determined by [facility]. It has not been cleared or approved by the Food and Drug Administration. Reference Range: <5.0 Negative > or EQ 5.0 Positive Test performed by [facility], [address] [facility], [place] [address] Procedures Date Code Description Status 08/10/2023 96553 Collection Of Venous Blood B y Venipuncture [...] Chip Meyer MD POSSIBLE SEIZURES Closed [facility] [address] [place] [address] [phone]
--- OUTSIDE RECORDS SUMMARY | 2025-07-28 19:38 | XMS_ITS | Clinical Summary ---
Author Organization [facility] Address [address] [place] [address] Care Team Providers Care Blending Operator Name Role Phone Unavailable Primary Care [...] Personal/Family Self 1965 [address] [place] [address]
--- OUTSIDE RECORDS SUMMARY | 2025-07-28 19:38 | XMS_ITS | Encounter Summary ---
Author Organization Formerly [facility] Address [address] [place] [address] Care Team Providers Care Freight Manager Name Role Phone Ranjana Villarreal PA-C Primary Care Provi erika Encounter Details Date Type Department Care Team (Late st Contact Info) Description 06/17/2025 Scanned Document [facility] NEPHROLOGY SCAN [...] 08/06/2025 1:00 PM EST [facility]ointment [facility] [address] [phone] Jared Rousseau MD [address] [address] Kemar Storey MD [address] [place] [address] [address] [place] [address] 08/19/2025 8:00 AM EST Telemedicine Clinical Support [facility] [place] [facility] [address] [place] [address] [address] [place] [phone] Meredith Waters NP 31 [facility] [address] [address] Reji Amos, DILIP 32 [place] [address] 08/26/2025 11:40 AM EST Procedure visit [facility] Pulmonary [address] [phone] 09/03/2025 8:15 AM EST [facility] [address] [facility] [address] [place] [address] Jared Rousseau MD [address] [place] [address] 10/06/2025 7:40 AM EST Office Visit [facility] Pulmonary [address] [phone] Maria D Hinojosa APRN [address] [place] [address] 11/24/2025 8:00 AM EST Office Visit [facility] [address] [place] [address] Ranjana Villarreal PA-C [address] [place] [address] documented as of this encounter Visit Diagnoses Not on filedocumented in this encounter Care Teams Freight Manager Relationship Specialty Start Date End Date Ranjana Villarreal PA-C [address] [place] [address] PCP - General Internal Medicine 11/03/24 documented as of this encounter
--- OUTSIDE RECORDS SUMMARY | 2025-07-28 19:38 | XMS_ITS | Encounter Summary ---
Author Organization [facility] Address [address] [place] [address] Care Team Providers Care Audience Development Manager Name Role Phone Ranjana Villarreal PA-C Primary Care Provi erika Encounter Details Date Type Department Care Team (Late st Contact Info) Description 06/19/2025 Scanned Document [facility] [place] [address] [facility] [address] [place] [phone] Maria D Hinojosa, BASEBALL GLOVE STUFFER [address] [place] [address] Social History Tobacco Use Types Packs/Day Years [...] 08/06/2025 1:00 PM EST Appointment [facility] [address] [place] [address] Jared Rousseau MD [address] [place] [address] Kemar Storey MD [address] [place] [address] [address] [place], [place] [address] 08/19/2025 8:00 AM EST Telemedicine Clinical Support [facility] [place] [facility] [address] [phone] Meredith Waters NP 31 [facility] [address] [address] Reji Amos, DILIP 32 [place] [address] 08/26/2025 11:40 AM EST Procedure visit [facility] [place] [address] [place] [address] 09/03/2025 8:15 AM EST Office [facility] 7 [facility] [address] [place], [place] [address] Jared Rousseau MD [address] [place] [address] 10/06/2025 7:40 AM EST Office Visit [facility] [place] [address] [place] [address] Maria D Hinojosa, BASEBALL GLOVE STUFFER [address] [place] [address] 11/24/2025 8:00 AM EST Office Visit [facility] 100 [facility] [address] [place] [address] Ranjana Villarreal PA-C 100 [place] [address] documented as of this encounter Visit Diagnoses Not on filedocumented in this encounter Care Teams Audience Development Manager Relationship Specialty Start Date End Date Ranjana Villarreal PA-C [address] [place] [address] PCP - General Internal Medicine 11/03/24 documented as of this encounter
--- OUTSIDE RECORDS SUMMARY | 2025-07-28 19:38 | XMS_ITS | Clinical Summary ---
Author Organization [facility] Address [address] [place] [address] Phone Care Team Providers Care Laboratory Courier Name Role Phone Joel Alegria NP Primary Care Provider [phone] Immunizations Immunization Administration Dates Next Due Moderna SARS-CoV-2 COVID-19, mRNA, LNP-S, preservative free 12/29/2020,12/01/2020 Surgical History Surgery Date Site/Laterality Comments CHOLECYSTECTOMY 2000 PROCEDURE: HISTORICAL CHOLECYSTECTOMY ENDOMETRIAL ABLATION PROCEDURE: GA ENDOMETRIAL ABLTJ THERMAL W/O HYSTEROSCOPIC GUID; COMMENT: done twice OTHER SURGICAL HISTORY PROCEDURE: ---- OTHER ----; COMMENT: skin graft for diabetic ulcer SECTION 03/1997 PROCEDURE: HISTORICAL DELIVERY COLONOSCOPY 06/18/2009 PROCEDURE: HISTORICAL COLONOSCOPY; COMMENT: Normal to cecum, repeat 10 years (small grade 2 internal hemorrhoids) UPPER GASTROINTESTINAL ENDOSCOPY 11/26/2001 PROCEDURE: UPPER GI ENDOSCOPY/EXAM; COMMENT: Normal, iron deficiency anemia most likely r/t a 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 OTHER SURGICAL HISTORY 2004 PROCEDURE: HISTORICAL [...] ED evaluation 06/29/18, referred to Dr. Ewing, [facility] wound care Managed with IV abx via PICC line through ID, eval with Dr. Harris for skin graft 08/2018 Anxiety 09/17/2018 DX:Anxiety; COMM ENT: Panic attacks Diabetic neuropathy ([facility], [facility] V28) 09/26/2018 DX:Diabetic neuropathy ([facility]) Umbilical hernia 09/26/2018 DX:Umbilical he rnia Type 2 diabetes mellitus wit h neurological manifestations ([facility], [facility] V28) 09/26/2018 DX:Type 2 diabetes mellitus with neurological manifestations ([facility]); COMMENT: Endo consult with Dr. Garces Type 2 diabetes mellitus wit h renal manifestations ([facility], [facility] V28) 01/15/2019 DX:Type 2 diabetes mellitus with renal manifestations ([facility]) Chronic gastric ulcer DX:Chronic gastric ulcer Depression DX:Depression ALIYAH on CPAP 01/15/2019 DX:ALIYAH on CPAP GERD (gastroesophageal reflux disease) 01/15/2019 DX:GERD (gastroesophageal reflux disease) Type 2 diabetes mellitus wit h vascular disease ([facility], [facility] V28) 10/14/2012 DX:Type 2 diabetes mellitus with vascular disease ([facility]) IBS (irritable bowel syndrome) 01/15/2019 D X:IBS (irritable bowel syndrome) Carpal tunnel syndrome of left wrist 01/15/2019 DX:Carpal tunnel syndrome of left wrist Amos's esophagus 03/23/2022 DX:Amos's esophagus [place] grade A esophagitis 03/23/2022 DX:[place] grade A esophagitis Diabetes mellitus ([facility] V 24, [facility] V28) DX:Diabetes mellitus ([facility]) Hypertension DX:Hypertension Hypercholesterolemia DX:Hypercho lesterolemia Anxiety DX:Anxiety GERD (gastroesophageal reflux disease) DX:GERD (gastroesophageal reflux disease) Family History Medical History Relation Name Comments Other: Graves Disease Brother Heart failure Maternal Grandfather Stroke Other cancer Maternal Grandmother Liver Breast cancer Mother Heart failure Paternal Grandfather [place], Hy pertension Other cancer Paternal Grandmother Kidney [...] 09/16/2022 Diabetes: Blood Sugar Control Test (HGBA1C) 07/08/2024 01/07/2024, 07/10/2023 Depression Screening 10/01/2024 DTaP,Tdap,and Td Vaccines (2 - Td or Tdap) 10/22/2024 10/22/2014 COVID-19 Vaccine (3 - 2024- season) 2025 12/29/2020, 12/01/2020 Influenza Vaccine (#1) 2025 , 07/15/2020, 07/18/2018, Additional history exists Diabetes: Annual GFR (Glomerular Filtration Rate) 04/01/2026 04/01/2025, 02/04/2024, 01/07/2024, Additional history exists Hypertension/CHF/CAD Annual BMP Blood Test 04/01/2026 04/01/2025, 02/04/2024, 01/07/2024, Additional history exists Breast Cancer Screening 08/05/2026 [...] Signed Date: 08/05/2024 08:54 ET Workstation ID: [id number] Transcribed By: Self Edit Transcribed Date: 08/05/2024 08:44 ET Narrative 08/05/2024 8:54 AM EST EXAM: SCREENING MAMMOGRAPHY, BILATERAL HISTORY: SCREENING. Mother diagnosed with breast cancer age 56. COMPARISON: 03/09/2023, 12/20/2021, 09/10/2020 TECHNIQUE: Synthesized CC and MLO projections of each breast. Tomosynthesis of each breast in the CC and MLO projections. ADDITIONAL IMAGING: None Computer-aided detection was employed with the [employer] AI 3-D. TISSUE DENSITY: There are scattered [...] None Computer-aided detection was employed with the [employer] AI 3-D. TISSUE DENSITY: There are scattered [...] Signed Date: 08/05/2024 08:54 ET Workstation ID: [id number] Transcribed By: Self Edit Transcribed Date: 08/05/2024 08:44 ET us Self Referral Sppl IMG BI PROCEDURES Final Resul t from Last 3 Months or Most Recently Relevant to Health Maintenance [place] [address] [address] [place] [address] ([facility]) Care Teams Laboratory Courier Relationship Specialty Start Date End Date Joel Alegria NP [address] [place], [place] PCP - General Family Medicine 08/01/24
--- OUTSIDE RECORDS SUMMARY | 2025-07-28 19:38 | XMS_ITS | Encounter Summary ---
Author Organization [facility] Address [address] [place] [address] Care Team Providers Care Textile Converter Name Role Phone Ranjana Villarreal PA-C Primary Care Provi erika Encounter Details Date Type Department Care Team (Late st Contact Info) Description 07/17/2025 Scanned Document [facility] PULMONOLGY SCAN Pulmonary, Scan Social [...] 08/06/2025 1:00 PM EST Appointment [facility] [address] [address] Jared Rousseau MD [address] [place] [address] Kemar Storey MD [address] [place] [address] [address] [place] [address] 08/19/2025 8:00 AM EST Telemedicine Clinical Support [facility] [place] [facility] [address] [place] [address] [address] [place] [phone] Meredith Waters NP 31 [facility] [address] [address] Reji Amos, DILIP 32 [place] [address] 08/26/2025 11:40 AM EST Procedure visit [facility] Pulmonary [address] [phone] 09/03/2025 8:15 AM EST Office [facility] 7 [facility] [address] [place] [address] Jared Rousseau MD [address] [place] [address] 10/06/2025 7:40 AM EST Office Visit [facility] Pulmonary [address] [phone] Maria D Hinojosa APRN [address] [place] [address] 11/24/2025 8:00 AM EST Office Visit [facility] [address] [place] [address] Ranjana Villarreal PA-C 100 [facility] [place] [address] documented as of this encounter Visit Diagnoses Not on filedocumented in this encounter Care Teams Textile Converter Relationship Specialty Start Date End Date Ranjana Villarreal PA-C [address] [place] [address] PCP - General Internal Medicine 11/03/24 documented as of this encounter
--- OUTSIDE RECORDS SUMMARY | 2025-07-28 19:38 | XMS_ITS | Encounter Summary ---
Author Organization [facility] Address [address] [place] [address] Care Team Providers Care Military Analyst Name Role Phone Ranjana Villarreal PA-C Primary Care Provi erika Encounter Details Date Type Department Care Team (Late st Contact Info) Description 07/20/2025 Scanned Document [facility] [place] at [address] [address] Orthopedic Surgery, Scan Social History Tobacco Use Types Packs/Day [...] 08/06/2025 1:00 PM EST Appointment [facility] [address] [place] [address] Jared Rousseau MD [address] [address] Kemar Storey MD [address] [place] [address] [address] [place], [place] [address] 08/19/2025 8:00 AM EST Telemedicine Clinical Support [facility] [place] [facility] 32 [facility] [address] [place] [phone] Meredith Waters NP 31 [facility] [address] [address] [place] [address] 08/26/2025 11:40 AM EST Procedure visit [facility] [address] [phone] 09/03/2025 8:15 AM EST [facility] 7 [facility] [address] [place] [address] Jared Rousseau MD [address] [place] [address] 10/06/2025 7:40 AM EST Office Visit [facility] [place] [address] [place] [address] Maria D Hinojosa APRN [address] [place] [address] 11/24/2025 8:00 AM EST Office Visit [facility] [address] [place] [phone] Ranjana Villarreal PA-C [address] [place] [address] documented as of this encounter Visit Diagnoses Not on filedocumented in this encounter Care Teams Military Analyst Relationship Specialty Start Date End Date Ranjana Villarreal PA-C [address] [place] [address] PCP - General Internal Medicine 11/03/24 documented as of this encounter
--- OUTSIDE RECORDS SUMMARY | 2025-07-28 19:38 | XMS_ITS | Clinical Summary ---
Author Organization [facility] Address [address] [place] [address] Care Team Providers Care Photovoltaic Subcontractor Name Role Phone Britt Henry PA-C Primary [...] % nasal spray as needed. 4 Active ipratropium-alb uterol (DUONEB) 0.5-2.5 mg/3 mL nebulizer solution 3 ML INHALED EVERY 6 HOURS NEEDED FOR WHEEZING 4 Active Continuous Glucose Sensor (Dexcom G6 Sensor) [facility] [place] 1 SENSOR EVERY 10 DAYS 4 Active Continuous Glucose Transmitter (Dexcom G6 Transmitter) [facility] 1 DEVICE BY DOES NOT APPLY ROUTE SEE ADMIN INSTRUCTIONS. CHANGE TRANSMITTER EVERY 3 MONTHS. 4 Active primidone (MYSOLINE) 50 MG tablet Take 1 tablet (50 mg total) by mouth nightly. 4 Active estradiol (ESTRACE) 0.01 % vaginal cream APPLY PEA-SIZED AMOUNT TO URETHRA DAILY X 1 MONTH THEN THREE DAYS A WEEK THEREAFTER 5 Active naltrexone (REVIA) 50 MG tablet Take 1 tablet (50 mg total) by mouth every morning. 5 Active PANTOprazole (PROTONIX) 40 MG EC tabletIndicatio ns:Amos's esophagus without dysplasia Take 1 tablet (40 mg total) by mouth daily. 90 tablet 3 5 Active budesonide-form oterol (SYMBICORT) 160-4.5 MCG/ACT inhaler Inhale 2 puffs twice daily (every 12 hours). 5 Active Multiple Vitamin tablet Take 1 tablet by mouth every morning. Active acetaminophen (TYLENOL) 500 MG tablet Take 1 tablet (500 mg total) by mouth 4 times daily (every 6 hours) as needed for mild pain. Active SUPPLY DME MISCIndications :Morbid obesity (HCC),Back pain, unspecified back location, unspecified back pain laterality, unspecified chronicity,Pain in left ankle and joints of left foot,Pain in both knees, unspecified chronicity,Ankl e instability, unspecified laterality Walker with seat & breaks [facility] [address] [place] [address] 1 each 5 Active methocarbamol (ROBAXIN) 750 MG tabletIndicatio ns:Back pain, unspecified back location, unspecified back pain laterality, unspecified chronicity Take 1 tablet (750 mg total) by mouth 4 (four) times a day as needed for muscle spasms. 40 tablet 5 Active hydroCHLOROthia zide (HYDRODIURIL) 25 MG tablet Take 1 tablet (25 mg total) by mouth daily. 5 Active methenamine hippurate (HIPREX) 1 g tablet Take 1 tablet (1 g total) by mouth 2 (two) times a day with meals. Active amLODIPine (NORVASC) 5 MG tabletIndicatio ns:Primary hypertension,Oc cipital neuralgia of left side Take 1 tablet (5 mg total) by mouth daily. 90 tablet 1 5 Active amLODIPine (NORVASC) 5 MG tabletIndicatio ns:Occipital neuralgia of left side Take 1 tablet (5 mg total) by mouth daily. 30 tablet 4 025 Discontin ued(Reord er) hydroCHLOROthia zide (MICROZIDE) 12.5 MG capsule Take 1 capsule (12.5 mg total) by mouth every morning. 5 025 Discontin ued(Dose adjustmen t) Active Problems Problem Noted Date Diagnosed Date Snoring 07/28/2025 Assessment & Plan (07/28/2025 1:03 PM EDT): Patient scheduled to hop picker her home sleep study kit at the end of August. Dyspnea on exertion 07/28/2025 Assessment & Plan (07/28/2025 1:03 PM EDT): History of COVID in 2020 requiring a day ICU stay in hospital admission for sepsis, DKA, pneumonia. History of COVID in 2022-DC with acute respiratory failure with hypoxia and post COVID syndrome. Patient follows with pulmonary out of [facility]. Last seen Marilee 2024. Managed on Breyna. Has an albuterol inhaler that she uses occasionally. Bronchiectasis without complication 07/28/2025 Assessment & Plan (07/28/2025 1:03 PM EDT): History of COVID in 2020 requiring a day ICU stay in hospital admission for sepsis, DKA, pneumonia. History of COVID in 2022-DC with acute respiratory failure with hypoxia and post COVID syndrome. Patient follows with pulmonary out of [facility]. Last seen Marilee 2024. Managed on Breyna. Has an albuterol inhaler that she uses occasionally. Chronic kidney disease, stage IV (severe) 2024 Assessment & Plan (07/28/2025 1:03 PM EDT): In March patient had labs which showed a BUN of 39, creatinine of 2.59 and a GFR of 21. Put her at a chronic kidney disease stage IV. Patient states she saw renal and they stopped her lisinopril. Repeat labs in June showed a creatinine of 1.63 and a GFR of 32. Patient is chronic kidney disease stage IIIb. Stage 3 chronic kidney disease 01/28/2025 Assessment [...] GI Esophageal dysphagia 01/22/2025 Assessment & Plan (07/28/2025 1:03 PM EDT): Patient had endoscopy January 2025 with [facility]. Will be due again in 2027. Compliant with PPI. Dysphagia has improved. Assessment & Plan (01/22/2025 11:20 AM EDT): ?dysmotility Prior barium swallow at other GI practice Will ask for records EGD per above Primary insomnia 11/03/2024 Assessment & Plan (07/28/2025 1:03 PM EDT): Follows with psych. Managed on trazodone for sleep. Has hydroxyzine as needed. She is on Wellbutrin 300 mg daily. Feels her pression is stable. History of COVID-19 11/03/2024 Tremor 11/03/2024 Gastroesophageal reflux disease without esophagi tis 11/03/2024 Assessment & Plan (07/28/2025 1:03 PM EDT): Patient had endoscopy January 2025 with [facility]. Will be due again in 2027. Compliant with PPI. Dysphagia has improved. Assessment & Plan (01/22/2025 11:18 AM EDT): [...] clinically. Primary hypertension 11/03/2024 Assessment & Plan (07/28/2025 1:03 PM EDT): Compliant with blood pressure medications. Blood pressure is good. Assessment & Plan (01/28/2025 5:13 PM EDT): Compliant with blood pressure medications. Blood pressure has been good. Chlorothiazide 12.5 mg was added by nephrology. Type 2 diabetes mellitus wit hout complication, with long-term current use of insulin 11/03/2024 IBS (irritable bowel syndrome) 11/03/2024 Assessment & Plan (07/28/2025 1:03 PM EDT): Manageable. Follows with GI. Assessment & Plan (01/22/2025 11:19 AM EDT): Discussed high fiber diet Avoid food triggers Regular exercise, and sleep Continue fiber supplementation and increase to BID Diabetic neuropathy associat ed with type 2 diabetes mellitus 11/03/2024 Assessment & Plan (07/28/2025 1:03 PM EDT): Compliant with insulin. Follows with Endo. Has [...] Will check urine microalbumin -lab sent to [facility]. Monofilament intact on the right foot in all regions. Diminished in the left foot on the 3rd and 5th toes and midfoot. Other hyperlipidemia 11/03/2024 Recurrent major depressive disorder, in partial remission 11/03/2024 Assessment & Plan (07/28/2025 1:03 PM EDT): Follows with psych. Managed on trazodone for sleep. Has hydroxyzine as needed. She is on Wellbutrin 300 mg daily. Feels her pression is stable. Morbid obesity 11/03/2024 Assessment & Plan (07/28/2025 1:03 PM EDT): Patient has tried diet, unable to tolerate GLP-1's. We discussed bariatric surgery. She may be interested in a gastric sleeve. Referral placed to Dr. Gongora at [facility] per patient's request. 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 Follows with Endo. Has [...] Will check urine microalbumin -lab sent to [facility]. Monofilament intact on the right foot in all regions. Diminished in the left foot on the 3rd and 5th toes and midfoot. Carotid artery plaque 01/08/2024 Carotid artery stenosis with out cerebral infarction, bilateral 01/08/2024 Assessment & Plan (07/28/2025 1:03 PM EDT): Found incidentally when patient was in [facility] ER with left-sided headaches/blurred vision. Workup negative for stroke. Patient had CTA of the head and neck back in 2023 which showed partially calcified erythematous plaque involving both carotid bifurcations. 25% stenosis at the origins of both internal carotid arteries and there is mild tandem narrowing involving the cavernous segments of both internal carotid arteries. No intracranial large [...] symptoms. No carotid bruits noted on exam. Occipital neuralgia of left side 01/08/2024 Headache 01/06/2024 Amos's esophagus 08/10/2023 Assessment & Plan (07/28/2025 1:03 PM EDT): Patient had endoscopy January 2025 with [facility]. Will be due again in 2027. Compliant with PPI. Dysphagia has improved. Assessment & Plan (01/22/2025 11:17 AM EDT): [...] and cancer. Schedule EGD Charcot's arthropathy 08/10/2023 Assessment & Plan (07/28/2025 1:03 PM EDT): History of. Patient had surgery on the foot. Following with Ortho. Essential tremor 08/10/2023 Assessment & Plan (07/28/2025 1:03 PM EDT): Patient follows with neurology. On primidone. Dyslipidemia 08/10/2023 Assessment & Plan (07/28/2025 1:03 PM EDT): Patient's last lipid profile in January showed total cholesterol 124, triglycerides 153, HDL 47 and LDL of 53. Patient is on Repatha and 80mg of Lipitor through cardiology. Resolved Problems Problem Noted Date Diagnosed Date Resolved Date Dyspnea due to COVID-19 01/01/2025 05/0 01/2025 Mixed anxiety depressive disorder 11/03/2024 11/03/2024 Sleep-disordered breathing 11/03/2024 0 11/03/2024 History of non-ST elevation myocardial infarction (NSTEMI) 08/10/2023 11/03/2024 Community acquired pneumonia 07/18/2023 11/03/2024 Orthostatic hypotension 07/18/2023 02/0 11/2024 Encounters Date Type Department Care Team Description 07/28/2025 8:30 AM EDT Office Visit [address] [place] [phone] Britt Henry PA-C Annual physical exam (Primary Dx); Type 2 diabetes mellitus with diabetic neuropathic arthropathy, with long-term current use of insulin ([facility]); Diabetic polyneuropathy associated with type 2 diabetes mellitus ([facility]); Diabetic retinopathy associated with type 2 diabetes mellitus, macular edema presence unspecified, unspecified laterality, unspecified retinopathy severity ([facility]); Dyslipidemia; Amos's esophagus without dysplasia; Gastroesophageal reflux disease without esophagitis; Esophageal dysphagia; Morbid obesity ([facility]); Recurrent major depressive disorder, in partial remission; Primary insomnia; Primary hypertension; Carotid artery stenosis without cerebral infarction, bilateral; Irritable bowel syndrome with both constipation and diarrhea; Charcot's arthropathy; Chronic kidney disease, stage IV (severe) ([facility]); Bronchiectasis without complication ([facility]); Dyspnea on exertion; Post-COVID syndrome; Coronary artery disease involving wichita coronary artery of wichita heart without angina pectoris; Snoring; Back pain, unspecified back location, unspecified back pain laterality, unspecified chronicity; Primary osteoarthritis involving multiple joints; Recurrent UTI; Essential tremor; Peripheral vascular disease; Other diabetic neurological complication associated with type 2 diabetes mellitus ([facility]); Occipital neuralgia of left side; Stage 3 chronic kidney disease, unspecified whether stage 3a or 3b CKD ([facility]) 07/28/2025 Travel 07/27/2025 2:00 PM EDT [facility] [address] [place] [phone] Matti Lambert PA Right shoulder pain, unspecified chronicity (Primary Dx) 07/21/2025 [facility] [address] [place] [address] Kemar Storey MD 07/20/2025 4:53 PM EDT Hospital Encounter [facility] [address] [place] [phone] 07/20/2025 4:35 PM EDT Office Visit [facility] [address] [place] [phone] David Land MD Ashe, Alexander, PA Acute pain of right shoulder (Primary Dx); Injury of right rotator cuff, initial encounter 07/20/2025 Travel 07/20/2025 Telephone [facility] [address] [facility] [address] [place] [phone] Britt Henry PA-C 07/20/2025 Scanned Document [facility] at [address] [place] [address] Orthopedic Surgery, Scan 07/17/2025 Scanned Document [facility] PULMONOLGY SCAN Pulmonary, Scan 07/13/2025 8:00 AM EDT Telemedicine Clinical Support [facility] [address] [place] [address] [place] [address] Meredith Waters, Reji Salinas RD Type 2 diabetes mellitus without complication, with long-term current use of insulin (HCC) (Primary Dx); Morbid obesity (HCC) 07/13/2025 Travel 07/02/2025 8:45 AM EDT [facility] [address] [address] Jared Rousseau MD Hill, Brian, APRN Spondylosis of lumbosacral region without myelopathy or radiculopathy (Primary Dx) 06/19/2025 Scanned Document [facility] [address] [place] [address] Maria D Hinojosa APRN 06/19/2025 Scanned Document [facility] [address] [place] [address] Maria D Hinojosa APRN 06/18/2025 11:20 AM EDT Consult [facility] [address] [address] Maria D Hinojosa APRN Snoring (Primary Dx); Fatigue, unspecified type; Non-restorative sleep; Witnessed episode of apnea; Upper airway resistance syndrome; Frequent nocturnal awakening 06/18/2025 Travel 06/17/2025 Telephone [facility] [address] [address] Maria D Hinojosa APRN 06/17/2025 Scanned Document [facility] NEPHROLOGY SCAN Nephrology, Scan 06/12/2025 12:30 PM EDT [facility] [address] [place] [address] Rubi Woo, PT Acute low back pain with bilateral sciatica, unspecified back pain laterality (Primary Dx) 06/10/2025 8:00 AM EDT Telemedicine Clinical Support [facility] [address] [facility] [address] [place] [phone] Meredith Waters, Reji Salinas RD Type 2 diabetes mellitus without complication, with long-term current use of insulin (HCC) (Primary Dx); Morbid obesity (HCC) 06/10/2025 Travel 06/09/2025 1:45 PM EDT Office [facility] [address] [address] Marc Reynolds MD Primary osteoarthritis of right knee (Primary Dx) 06/08/2025 Orders Only [address] [phone] Primary Care, Scan 06/05/2025 Refill [facility] [address] [facility] [address] [place] [address] Jared Rousseau MD Back pain, unspecified back location, unspecified back pain laterality, unspecified chronicity 06/05/2025 Orders Only [address] [address] Primary Care, Scan 06/05/2025 Scanned Document [address] [address] Neurology, Scan 06/04/2025 8:15 AM EDT Office [facility] [address] [address] Jared Rousseau MD Back pain, unspecified back location, unspecified back pain laterality, unspecified chronicity (Primary Dx) 05/29/2025 12:30 PM EDT [facility] [address] [address] Rubi Woo, PT Acute low back pain with bilateral sciatica, unspecified back pain laterality (Primary Dx) 05/27/2025 12:40 PM EDT Office Visit [facility] [address] [place] [phone] David Land MD Kelly, Martin J, PA-C Urinary tract infection with hematuria, site unspecified (Primary Dx); Urinary tract infection symptoms 05/27/2025 Travel 05/27/2025 Telephone [facility] [address] [place] [address] Britt Henry PA-C Blood Pressure Check 05/22/2025 1:00 PM EDT [facility] [address] [address] Rubi Woo, PT Acute low back pain with bilateral sciatica, unspecified back pain laterality (Primary Dx) 05/15/2025 12:30 PM EDT [facility] [address] [address] Rubi Woo, PT Acute low back pain with bilateral sciatica, unspecified back pain laterality (Primary Dx) 05/15/2025 Scanned Document [facility] [address] [place] [address] Cardiology, Scan 05/13/2025 7:30 AM EDT [facility] [address] [address] Rubi Woo, PT Acute low back pain with bilateral sciatica, unspecified back pain laterality (Primary Dx) 05/08/2025 2:00 PM EDT [facility] [address] [place] [address] Rubi Woo, PT Acute low back pain with bilateral sciatica, unspecified back pain laterality (Primary Dx) 05/07/2025 8:00 AM EDT [facility] [address] [facility] [address] [place] [address] Jared Rousseau MD Back pain, unspecified back location, unspecified back pain laterality, unspecified chronicity (Primary Dx) 05/07/2025 Scanned Document [facility] 31 [facility] [address] [place] [phone] Jared Rousseau MD 05/06/2025 8:00 AM EDT Telemedicine Clinical Support [facility] 32 [facility] 1st [place] [address] Meredith Waters NP Barrett, Christopher, RD Type 2 diabetes mellitus without complication, with long-term current use of insulin (HCC) (Primary Dx); Morbid obesity (HCC) 05/06/2025 Telephone [facility] [place] [address] [facility] [address] [place] [phone] Basia Brandt, CONSTRUCTION DRILLER 05/06/2025 Travel 05/04/2025 Scanned Document [facility] [address] [place] [address] Nephrology, Scan 05/01/2025 1:00 PM EDT [facility] [address] [facility] [address] [place] [address] Rubi Woo, PT Acute low back pain with bilateral sciatica, unspecified back pain laterality (Primary Dx) from Last 3 Months Immunizations Immunization Administration Dates Next Due Influenza Inactivated/Split Preservative Free IM 07/18/2018 Influenza Virus Trivalent Split Vaccine (MDV) IM 08/01/2016,10/22/2014 Influenza, Quadrivalent (FLU ARIX, AFLURIA, FLULAVAL, FLUZONE) Preservative Free IM 07/18/2023 Influenza, Trivalent (FLUARI X, AFLURIA, FLULAVAL, FLUZONE) Preservative Free IM 07/18/2018,10/22/2014 Tdap 10/22/2014 Social History Tobacco Use Types [...] and Family Not on file 07/27/2025 Attends Congregation Services Not on file 07/27 Active Member [...] time in the past 12 m [facility], were you homeless or living in a fpc (including now)? No 07/27/2025 [facility] Utilities Answer Date Recorded In the past 12 months has th [employer], gas, oil, or water company threatened to [...] Mass Index 48.06 07/28/2025 8:26 AM EDT Plan of Treatment Upcoming Encounters Date Type Department Care Team (Late st Contact Info) Description 08/06/2025 1:00 PM EST Appointment [facility] [address] [address] Jared Rousseau MD [address] [address] Kemar Storey MD [address] [facility] [address] [place] [address] 08/19/2025 8:00 AM EST Telemedicine Clinical Support [facility] 32 [facility] 1st [place] [phone] Meredith Waters NP 31 [facility] [address] [address] Reji Amos, DILIP [address] [place] [address] 08/26/2025 11:40 AM EST Procedure visit [facility] [address] [address] 09/03/2025 8:15 AM EST Office [facility] [address] [place] [address] Jraed Rousseau MD [address] [place] [address] 10/06/2025 7:40 AM EST Office Visit [facility] [address] [phone] Maria D Hinojosa, MARCOS [address] [place] [address] 11/24/2025 8:00 AM EST Office Visit [address] [place] [address] Britt Henry PA-C [address] [place] [address] Health Maintenance Due Date Last Done Comments Hepatitis C Virus Screening 1966 Ophthalmology Exam 1976 HIV Screening 1979 Microalbumin/Creatinine Rati o Urine 1984 Hepatitis B Vaccines (1 of 3 - 19+ 3-dose series) 1985 Pneumococcal Vaccines 50+ (1 of 2 - PCV) 1985 Pap Smear (Ages 21-65) 1987 Mammogram 2006 Colonoscopy 2011 RSV Vaccine 50 years and old er and Patients (1 - Risk 50-74 years 1-dose series) 2016 Zoster (Shingles) Vaccine (1 of 2) 2016 Hemoglobin A1C 07/08/2024 01/07/2024 DTaP/Tdap/Td Vaccines (2 - T d or Tdap) 10/22/2024 10/22/2014 Influenza Vaccine 05/01/2025 07/18/2023, , 07/18/2018, Additional history exists Lipid Panel 01/29/2026 01/29/2025 Creatinine with GFR 04/01/2026 04/01/2025, 04/01/2025, 01/29/2025, Additional history exists Foot Exam 07/28/2026 07/28/2025, 07/02, 07/28/2025, Additional history exists Physical 07/28/2026 07/28/2025 COVID-19 Vaccine Completed 06/13/2024, 01/2021, 12/29/2020, Additional history exists Medical Devices Implanted Type Area Validation Manager Device Identifier Shelf Expiration Date Model / Serial / Lot Nail/Dayron Nail/Dayron Foot Description:Charcot's and pl ate Procedures Procedure Name Priority Date/Time Associated Diagnosis Comments XR SHOULDER 2+ VIEWS-RIGHT STAT 07/20/2025 4:59 PM EDT Acute pain of right shoulder AMB REFERRAL TO PHYSICAL MEDICINE REHAB Routine [...] location, unspecified back pain laterality, unspecified chronicity BASIC METABOLIC PANEL Routine 04/01/2025 11:46 AM [...] Relevant to Health Maintenance Results * XR Shoulder 2+ views-Right (07/20/2025 4:59 PM EDT) Anatomical Region Laterality Modality Shoulder Right Computed Radiogr aphy 07/20/2025 5:04 PM EDT Impressions 07/20/2025 5:05 PM EDT 1. No fracture or dislocation. Narrative 07/20/2025 5:05 PM EDT EXAM: XR SHOULDER 2+ VIEWS-RIGHT on 07/20/2025 4:53 PM CLINICAL HISTORY: OSMAN ALCANTAR is a 60 years old patient with [...] on 07/20/2025 4:53 PM CLINICAL HISTORY: OSMAN ALCANTAR is a 60 years old patient with [...] IMPRESSION: 1. No fracture or dislocation. Byron ESPINO IMG DIAGNOSTIC IMAGING ORDERAB LES Final Result * Amb Referral to Physical Medicine Rehab (07/02/2025 1:06 PM EDT) Jared Rousseau MD OUTPATIENT REFERRAL ORDERABLES F inal Result * LAB RESULT (06/05/2025 12:46 PM EDT) Only the most recent of2 resultswithin the time period is included. us Scan Primary Care HX AMB PROCEDURES Edited Resul t - Final * (ABNORMAL) POCT Urinalysis Dipstick, Automated (05/27/2025 1:06 PM EDT) Source, UA Clean Catch Color, UA Dix(A) Yellow & Clear, Yellow Comment:pt took azo [...] Esterase, UA Large (+++)(A) Negative Lot Number [id number] Chief Knowledge Officer Pass Pass Urine 05/27/2025 1:06 PM EDT Sudarshan Kevin PA-C POINT OF CARE TEST ORDERABLE S Final Result * Urine Culture (05/27/2025 1:06 PM EDT) Culture SEE NOTE [employer] Comment: CULTURE, URINE, ROUTINE Micro Number: [id number] Test Status: Final Specimen Source: Urine Specimen Quality: Adequate Result: No Growth 05/27/2025 1:06 PM EDT 05/28/2025 10:45 PM EDT Sudarshan Kevin PA-C LAB AMB MICRO ORDERABLES Fin al Result Drive [facility] [address] [place] [phone] * MRI Lumbar spine w/o contrast (05/26/2025 [...] roots within the lateral recesses and causes [id number] bilateral neural foraminal stenosis. 5. L3-L4 broad-based disc bulge with bilateral facet arthropathy and thickening of the ligamentum flavum which encroaches upon the traversing bilateral L4 nerve roots within the lateral recesses and causes [id number] right as well as moderate left neural foraminal stenosis. 6. L4-L5 shallow broad-based disc bulge with bilateral facet arthropathy causing mild left neural foraminal stenosis. Electronically signed by: Stephen Muhammad MD 05/28/2025 08:49 AM EDT Thank you for referring your patient to us, Stephen Muhammad MD [phone] (Electronically Signed - 05/28/2025 08:49) Copy: BRITT HENRY [facility] [address] [facility] [address] [place] [address] PATIENT , Narrative 05/28/2025 8:49 [...] roots within the lateral recesses and causes [id number] bilateral neural foraminal stenosis. L3-L4: Broad-based disc bulge with bilateral facet arthropathy and mild thickening of the ligamentum flavum which encroaches upon the traversing bilateral L4 nerve roots within the lateral recesses and causes tpcd-wd-xvwrfmft right as well as moderate left neural [...] nerve roots within thelateral recesses and causes takk-rx-vaqhuare bilateral neural foraminalstenosis. L3-L4: Broad-based disc bulge with bilateral facet arthropathy and mildthickening of the ligamentum flavum which encroaches upon the traversingbilateral L4 nerve roots within the lateral recesses and jzalzqraxz-lf-wqldxfys right as well as moderate left neural [...] nerve roots within the lateralrecesses and causes cayk-cn-njevutkn bilateral neural foraminalstenosis. 5. L3-L4 broad-based disc bulge with bilateral facet arthropathy andthickening of the ligamentum flavum which encroaches upon the traversingbilateral L4 nerve roots within the lateral recesses and pvqixyxreg-pg-ipiwtbkb right as well as moderate left neural foraminal stenosis. 6. L4-L5 shallow broad-based disc bulge with bilateral facet arthropathycausing mild left neural foraminal stenosis. Electronically signed by: Stephen Muhammad MD 05/28/2025 08:49 AM EDT RPWorkstation: [id number] Thank you for referring your patient to us, Stephen Muhammad MD [phone] (Electronically Signed - 05/28/2025 08:49) Copy: BRITT ESPINO [facility] [address] [place] [address] PATIENT , Jared Rousseau MD IM MRI ORDERABLES Final Result * (ABNORMAL) Basic metabolic panel (04/01/2025 11:46 AM EDT) Glucose 399(H) 65 - 99 mg/dL [facility] Comment: Verified by repeat analysis. Fasting reference interval For someone without known diabetes, a glucose value >125 mg/dL indicates that they may have diabetes and this should be confirmed with a follow-up test. Blood Urea Nitrogen (BUN) 39(H) 7 - 25 mg/dL [facility] Creatinine 2.59(H) 0.50 - 1.03 mg/dL [facility] Creatinine w/ eGFR 21(L) > OR = 60 mL/min/1.7 3m2 [facility] BUN/Creatinine Ratio 15 6 - 22 (calc) [facility] Sodium 128(L) 135 - 146 mmol/L [facility] Potassium 5.1 3.5 - 5.3 mmol/L [facility] Chloride 90(L) 98 - 110 mmol/L [facility] CO2 29 20 - 32 mmol/L [facility] Calcium 9.6 8.6 - 10.4 mg/dL [facility] Blood Blood specimen / Unknown 04/01/2025 11:46 AM EDT 04/01/2025 11:46 AM EDT Britt Ketty Felts Mills-Dietrich PA-C LAB BLOOD ORDERABLE S Final Result Performing Organization Address [facility] [place] [facility]/ZIP Co de Phone Number Drive [address] [place] [address] * (ABNORMAL) Lipid panel with nonHDL (01/29/2025 1:22 PM EDT) Cholesterol, Total 124 <200 mg/dL [facility] Cholesterol, HDL 47(L) > OR = 50 mg/dL [facility] Triglycerides 153(H) <150 mg/dL [facility] LDL Cholesterol 53 mg/dL (calc) [facility] Comment: Reference range: <100 Desirable range <100 mg/dL for primary prevention; <70 mg/dL for patients with CHD or diabetic patients with > or = 2 CHD risk factors. LDL-C is now calculated using the Kush calculation, which is a validated novel method providing better accuracy than the Friedewald equation in the estimation of LDL-C. Sudarshan SS et al. BRITTNEE. 2013;310(19): 7283-6813 (http://education.[employer]/faq/ZVO140) Cholesterol/HDL Ratio 2.6 <5.0 (calc) [facility] Non HDL Chol. (LDL+VLDL) 77 <130 mg/dL (calc) [facility] Comment: For patients with diabetes plus 1 major ASCVD risk factor, treating to a non-HDL-C goal of <100 mg/dL (LDL-C of <70 mg/dL) is considered a therapeutic option. Blood Blood specimen / Unknown 01/29/2025 1:22 PM EDT 01/29/2025 1:25 PM EDT Narrative [facility] - 01/30/2025 10:28 AM EDT FASTING:YES FASTING: YES Britt Henry PA-C LAB BLOOD ORDERABLE S Final Result Performing Organization Address [facility] [place] [facility]/ZIP Co de Phone Number Drive [address] [place] [address] * (ABNORMAL) Hemoglobin A1c with Estimated Average [...] MD LAB BLOOD ORDERABLES [place] [address], [place] [address] from Last 3 Months or Most Recently Relevant to Health Maintenance Insurance [facility] OUT OF [facility] BLUE CROSS OUT OF [facility] Member Subscriber Plan / Payer ( fective 2020-Present) Name:Osman Alcantar Relation to Subscriber:Self Name:Osman Alcantar Payer ID:[id number] ([facility]) Type:Not on file Address: [place] [phone] BLUE CROSS OUT [facility] Advance Directives * Full Code (Latest Code Status on File) Date Activated Date Inactivated Comments 01/06/2024 5:40 PM 02/27/2025 8:16 AM Question Answer Comments Decision Thoroughly Discussed with: Patient * Full Code Date Activated Date Inactivated Comments 08/30/2023 12:10 PM 01/06/2024 2:18 PM Full Code Care Teams Photovoltaic Subcontractor Relationship Specialty Start Date End Date Britt Henry PA-C [address] [address] PCP - General Internal Medicine 11/03/24
--- OUTSIDE RECORDS SUMMARY | 2025-07-28 19:38 | XMS_ITS | Encounter Summary ---
Author Organization [facility] Address 100 [place] [address] Care Team Providers Care Driller'S Offsider Name Role Phone Ranjana Villarreal PA-C Primary Care Provi erika Encounter Details Date Type Department Care Team (Late st Contact Info) Description 11/20/2024 Scanned Document [address] [place] [address] Primary Care, Scan Social History [...] 08/06/2025 1:00 PM EST [facility]ointment [facility] [address] [address] Jared Rousseau MD [address] [address] Kemar Storey MD 499 [facility] [address] [place] [address] 08/19/2025 8:00 AM EST Telemedicine Clinical Support [facility] [place] [facility] [address] [place] [address] 1[address] [place] [address] Meredith Waters NP 31 [facility] [address] [address] Reji Amos, DILIP 32 [place] [address] 08/26/2025 11:40 AM EST Procedure visit [facility]monary [address] [phone] 09/03/2025 8:15 AM EST Office [facility] [address] [place] [address] Jared Rousseau MD [address] [place] [address] 10/06/2025 7:40 AM EST Office Visit [facility]monary [address] [phone] Maria D Hinojosa APRN [address] [place] [address] 11/24/2025 8:00 AM EST Office Visit [facility] [address] [place] [address] Ranjana Villarreal PA-C [address] [place] [place] [address] documented as of this encounter Visit Diagnoses Not on filedocumented in this encounter Care Teams Driller'S Offsider Relationship Specialty Start Date End Date Ranjana Villarreal PA-C [address] [place] [address] PCP - General Internal Medicine 11/03/24 documented as of this encounter
--- OUTSIDE RECORDS SUMMARY | 2025-07-28 19:38 | XMS_ITS | Encounter Summary ---
Author Organization [facility] Address 100 [place] [address] Care Team Providers Care Bus Transportation Manager Name Role Phone Ranjana Villarreal PA-C Primary Care Provi erika Encounter Details Date Type Department Care Team (Late st Contact Info) Description 06/19/[address] [facility] Pulmonary [place] 704 [facility] [address] [place] [phone] Maria D Hinojosa, TELEVISION RECEIVER ANALYZER [address] [place] [address] Social History Tobacco Use Types Packs/Day Years [...] 08/06/2025 1:00 PM EST Appointment [facility] 150 [place] [address] Jared Rousseau MD [address] [place] [address] Kemar Storey MD [address] [place] [address] [address] [place], [place] [address] 08/19/2025 8:00 AM EST Telemedicine Clinical Support [facility] [place] [facility] [address] [phone] Meredith Waters NP 31 [facility] [address] [address] Reji Amos, DILIP 32 [place] [address] 08/26/2025 11:40 AM EST Procedure visit [facility] Pulmonary [place] 699 [place] [address] 09/03/2025 8:15 AM EST Office Visit [facility] 7 [facility] [address] [place], [place] [address] Jared Rousseau MD [address] [place] [address] 10/06/2025 7:40 AM EST Office Visit [facility] Pulmonary [place] 100 [place] [address] Maria D Hinojosa, TELEVISION RECEIVER ANALYZER [address] [place] [address] 11/24/2025 8:00 AM EST Office Visit [facility] 100 [facility] [address] [place] [address] Ranjana Villarreal PA-C 100 [place] [address] documented as of this encounter Visit Diagnoses Not on filedocumented in this encounter Care Teams Bus Transportation Manager Relationship Specialty Start Date End Date Ranjana Villarreal PA-C [address] [place] [address] PCP - General Internal Medicine 11/03/24 documented as of this encounter
--- OUTSIDE RECORDS SUMMARY | 2025-07-28 19:38 | XMS_ITS | Encounter Summary ---
Author Organization [facility] Address [address] [place] [address] Care Team Providers Care Farmworker Rice Name Role Phone Ranjana Villarreal PA-C Primary Care Provi erika Encounter Details Date Type Department Care Team (Late st Contact Info) Description 06/05/2025 Scanned Document [facility] [address] [place] [address] Neurology, Scan Social History Tobacco [...] 08/06/2025 1:00 PM EST Appointment [facility] 150 [place] [address] Jared Rousseau MD [address] [address] Kemar Storey MD [address] [place] [address] [address] [place], [place] [address] 08/19/2025 8:00 AM EST Telemedicine Clinical Support [facility] [place] [facility] 32 [facility] 1st [place] [phone] Meredith Waters NP 31 [facility] [address] [address] [place] [address] 08/26/2025 11:40 AM EST Procedure visit [facility] Pulmonary [address] [phone] 09/03/2025 8:15 AM EST Office [facility] 7 [facility] [address] [place] [address] Jared Rousseau MD [address] [place] [address] 10/06/2025 7:40 AM EST Office Visit [facility] Pulmonary [address] [phone] Maria D Hinojosa APRN 699 [place] [address] 11/24/2025 8:00 AM EST Office Visit [facility] [address] [place] [address] Ranjana Villarreal PA-C [address] [place] [address] documented as of this encounter Visit Diagnoses Not on filedocumented in this encounter Care Teams Farmworker Rice Relationship Specialty Start Date End Date Ranjana Villarreal PA-C [address] [place] [place] [address] PCP - General Internal Medicine 11/03/24 documented as of this encounter
== END 2025-07-28 16:06 | disposition home or self-care (01) ==
LOC: HO.HUSH 15:13
PROVIDERS: PCP Physician Assistant Medical; Visit Provider Nurse Practitioner Family
DX: N39.0 Urinary tract infection, site not specified (principal); R30.0 Dysuria; R31.29 Other microscopic hematuria; N39.46 Mixed incontinence; Z13.9 Encounter for screening, unspecified
CPT/HCPCS: 99214

== ENCOUNTER 2025-09-08 13:41 | Outpatient (REF) | payer BC, SELFPAY ==
--- OUTSIDE RECORDS SUMMARY | 2025-07-20 15:53 | XMS_ITS | Encounter Summary ---
Author Organization [facility] Address [address] [place] [address] Care Team Providers Care Lsw Name Role Phone Ranjana Villarreal PA-C Primary Care Provi erika Encounter Details Date Type Department Care Team (Late st Contact Info) Description 07/20/2025 4:53 PM EDT Hospital Encounter [facility] [address] [place] [address] Social History Tobacco Use Types Packs/Day Years [...] and Family Not on file 07/27/2025 Attends Mormonism Services Not on file 07/27 Active Member [...] any time in the past 12 m [facility], were you homeless or living in a usp (including now)? No 07/27/2025 [facility] Utilities Answer Date Recorded In the past 12 months has e [employer], gas, oil, or water company threatened to shut off services in your home? No 07/27/2025 Physical Activity Answer Date Recorded On average, how many days pe r week do you engage in moderate to strenuous exercise (like a brisk walk)? 0 days 07/27/2025 On average, how many minutes do you exercise per day at this level? 0 min 07/27/2025 Education Answer Date Recorded What is the highest level of school you have completed or the highest degree you have received? Some college, no degree 07/27/2025 Comments No Sex and Gender Information Value Date Recorded Sex Assigned at Female 01/06/2024 3:09 PM EDT Legal Sex Female 4:18 PM EDT Gender Identity Female 01/06/2024 3:09 PM EDT Sexual Orientation Choose not to disclose 2023 3:09 PM EDT documented as of this encounter Functional Status * Q1: How [...] Total Score 3 07/27/2025 10:20 AM EDT Mychart, Generic documented as of this encounter Plan of Treatment Upcoming Encounters Date Type Department Care Team (Late st Contact Info) Description 09/15/2025 9:45 AM EST [facility]ointment [facility] [address] [address] Kemar Storey MD [address] [place] [address] [address] [place] [phone] 09/18/2025 8:00 AM EST Telemedicine Clinical Support [facility] [place] [facility] 32 [facility] 1st [place] [phone] Meredith Waters NP 31 [facility] [address] [address] Reji Amos, DILIP 32 [place] [address] 09/29/2025 7:30 AM EST Appointment [facility] [address] [address] Kemar Storey MD [address] [phone] 10/06/2025 7:40 AM EST Office Visit [address] [phone] Maria D Hinojosa, POWERTRAIN DESIGN ENGINEER 699 [place] [address] 11/03/2025 7:30 AM EST Office Visit [facility] [address] [phone] Milan Rodriguez POWERTRAIN DESIGN ENGINEER [address] [address] 11/24/2025 8:00 AM EST Office Visit [address] [phone] Ranjana Villarreal PA-C 100 [place] [address] documented as of this encounter Procedures Procedure Name Priority Date/Time Associated Diagnosis Comments XR SHOULDER 2+ VIEWS-RIGHT STAT 07/20/2025 4:59 PM EDT Acute pain of right shoulder documented in this encounter Results * XR Shoulder 2+ views-Right (07/20/2025 4:59 PM EDT) Anatomical Region Laterality Modality Shoulder Right Computed Radiogr aphy 07/20/2025 5:04 PM EDT Impressions 07/20/2025 5:05 PM EDT 1. No fracture or dislocation. Narrative 07/20/2025 5:05 PM EDT EXAM: XR SHOULDER 2+ VIEWS-RIGHT on 07/20/2025 4:53 PM CLINICAL HISTORY: OSMAN MATHIS is a 60 years old patient with a submitted history of right shoulder pain. ADDITIONAL HISTORY: Acute pain of right shoulder COMPARISONS: None TECHNIQUE: AP internal and external rotation and scapular Y radiographs of the right shoulder were obtained. FINDINGS: BONES: Normal mineralization without an acute fracture. Partial imaging of the upper right ribs does not demonstrate a fracture. ALIGNMENT: Anatomic without subluxation or dislocation. The acromioclavicular joint is intact. JOINTS: No narrowing, erosions or osteophytes. SOFT TISSUES: No appreciable soft tissue swelling, subcutaneous emphysema or radio-opaque foreign object. OTHER: The visualized lung is clear. Procedure Note Chaka Ivory MD - 07/20/2025 EXAM: XR SHOULDER 2+ VIEWS-RIGHT on 07/20/2025 4:53 PM CLINICAL HISTORY: OSMAN MATHIS is a 60 years old patient with a submitted history of rightshoulder pain. ADDITIONAL HISTORY: Acute pain of right shoulder COMPARISONS: None TECHNIQUE: AP internal and external rotation and scapular Y radiographsof the right shoulder were obtained. FINDINGS: BONES: Normal mineralization without an acute fracture. Partial imaging ofthe upper right ribs does not demonstrate a fracture. ALIGNMENT: Anatomic without subluxation or dislocation. Theacromioclavicular joint is intact. JOINTS: No narrowing, erosions or osteophytes. SOFT TISSUES: No appreciable soft tissue swelling, subcutaneous emphysemaor radio-opaque foreign object. OTHER: The visualized lung is clear. IMPRESSION: 1. No fracture or dislocation. Byron [facility] ORDERAB LES Final Result documented in this encounter Visit Diagnoses Not on filedocumented in this encounter Care Teams Lsw Relationship Specialty Start Date End Date Ranjana Villarreal PA-C [address] [place] [address] PCP - General Internal Medicine 11/03/24 documented as of this encounter
--- OUTSIDE RECORDS SUMMARY | 2025-09-03 08:15 | XMS_ITS | Encounter Summary ---
Author Organization [facility] Address 100 [place] [address] Care Team Providers Care Sitecore Developer Name Role Phone Ranjana Villarreal PA-C Primary Care Provi erika Reason for Visit * Reason Comments Pain Encounter Details Date Type Department Care Team ([facility] st Contact Info) Description 09/03/2025 8:15 AM EST Office Visit [facility] [address] [place] [address] Jared Rousseau MD 31 [facility] 100 [place] [address] Back pain, unspecified back location, unspecified back [...] and Family Not on file 07/27/2025 Attends [employer] Not on file 07/27 Active Member [...] any time in the past 12 m [facility], were you homeless or living in a [place] health care facility (including now)? No 07/27/2025 [facility] Utilities Answer Date Recorded In the [...] Progress Notes * Jared Rousseau MD - 09/03/2025 8:15 AM EST Images from the original note were not included. 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 I discussed the role of weight loss and core strengthening. I discussed the role of fusion to help with facet arthritis in the long-term however I think should do really well with ablation and continue conservative management. Bibi see her back in 3 to 6 months to see how she is doing. All questions were answered today. History of Present Illness: Ewelina Mathis is a 60 y.o. female who presents today for repeat evaluation regarding lumbar spine. She has had 2 facet trials which have each given her near 100% relief. She is scheduled to undergo the ablation in the near future. Chief Complaint Patient presents with Lower Back [...] unspecified back pain laterality, unspecified chronicity - methocarbamol (ROBAXIN) 750 MG tablet; Take 1 tablet (750 mg total) by mouth 4 (four) times a dayas needed for muscle spasms. Dispense: 40 tablet; Refill: 0 Review of Systems Review of Systems 10 point ros performed, pertinent in hpi Jared Rousseau MD documented in this encounter Plan of Treatment Upcoming Encounters Date Type Department Care Team (Late st Contact Info) Description 09/15/2025 9:45 AM EST Appointment [facility] [address] [phone] Kemar Storey MD 499 [facility] [address] [place] [address] 09/18/2025 8:00 AM EST Telemedicine Clinical Support [facility] Bone [facility] Joint [place] [facility] [address] [place] [address] [address] [place] [phone] Meredith Waters NP 31 [facility] [address] [place], [place] [phone] Reji Amos, DILIP 32 [place], [place] [phone] 09/29/2025 7:30 AM EST Appointment [facility] [address] [address] Kemar Storey MD [address] [address] 10/06/2025 7:40 AM EST Office Visit [facility] [address] [phone] Maria D Hinojosa, TRIMMER PRESS CLIPPINGS 703 [place] [address] 11/03/2025 7:30 AM EST Office Visit [facility] [address] [phone] Milan Rodriguez APRN 499 [facility] [address] [place] [address] 11/24/2025 8:00 AM EST Office Visit [facility] 100 [facility] 101 [place] [address] Ranjana Villarreal PA-C 100 [place] [address] documented as of this encounter Visit Diagnoses Diagnosis Back pain, unspecified back location, unspecified back pain laterality, unspecified chronicity documented in this encounter Care Teams Sitecore Developer Relationship Specialty Start Date End Date Ranjana Villarreal PA-C 100 [place] [address] PCP - General Internal Medicine 11/03/24 documented as of this encounter
[2025-09-08 18:31] LABS: Anion Gap 13 (12-20); Blood Urea Nitrogen 34 mg/dL (9-16); Calcium 9.2 mg/dL (8.4-10.2); Carbon Dioxide 25 mmol/L (22-29); Chloride 106 mmol/L (96-108); Estimated Glomerular Filt Rate 28; Potassium 5.0 mmol/L (3.3-5.1); Sodium 139 mmol/L (135-145)
--- OUTSIDE RECORDS SUMMARY | 2025-09-08 19:37 | XMS_ITS | Encounter Summary ---
Author Organization [facility] Address [address] [place] [address] Care Team Providers Care Glass Installer Technician Name Role Phone Ranjana Villarreal PA-C Primary Care Provi erika Encounter Details Date Type Department Care Team ([facility] st Contact Info) Description 05/07/2025 Scanned Document [facility] [address] [phone] Jared Rousseau MD [address] [place] [address] Social History Tobacco Use Types Packs/Day Years [...] 9:45 AM EST Appointment [facility] [address] [address] Kemar Storey MD [address] [facility] [address] [place], [place] [address] 09/18/2025 8:00 AM EST Telemedicine Clinical Support [facility] [place] [facility] 32 [facility] 1[address] [place] [address] Meredith Waters NP 31 [facility] [address] [address] Reji Amos, DILIP 32 [place] [address] 09/29/2025 7:30 AM EST Appointment [facility] [address] [address] Kemar Storye MD [address] [address] 10/06/2025 7:40 AM EST Office Visit [facility] Medical [address] [phone] Maria D Hinojosa APRN 699 [place] [address] 11/03/2025 7:30 AM EST [facility] [address] [phone] Milan Rodriguez, PUBLICITY EXPERT [address] [facility] [address] [place] [address] 11/24/2025 8:00 AM EST Office Visit [facility] 100 [facility] 101 [place] [address] Ranjana Villarreal PA-C 100 [place] [address] documented as of this encounter Visit Diagnoses Not on filedocumented in this encounter Care Teams Glass Installer Technician Relationship Specialty Start Date End Date Ranjana Villarreal PA-C 100 [place] [address] PCP - General Internal Medicine 11/03/24 documented as of this encounter
--- OUTSIDE RECORDS SUMMARY | 2025-09-08 19:37 | XMS_ITS | Encounter Summary ---
Author Organization [facility] Address 100 [place] [address] Care Team Providers Care Grounds Caretaker Name Role Phone Ranjana Villarreal PA-C Primary Care Provi erika Encounter Details Date Type Department Care Team (Late st Contact Info) Description 08/06/2025 Scanned Document [facility] 499 [place] [phone] Kemar Storey MD [address] [place] [address] Social History Tobacco Use Types Packs/Day Years [...] and Family Not on file 07/27/2025 Attends [facility] Not on file 07/27 Active Member [...] any time in the past 12 m [facility], were you homeless or living in a penitentiary (including now)? No 07/27/2025 [facility] Utilities Answer Date Recorded In the past 12 months has th e [employer], gas, oil, or water company threatened to [...] 09/15/2025 9:45 AM EST Appointment [facility] [address] [address] Kemar Storey MD [address] [facility] [address] [place] [address] 09/18/2025 8:00 AM EST Telemedicine Clinical Support [facility] [place] [facility] 32 [facility] 1st [place] [phone] Meredith Waters NP 31 [facility] [address] [address] Reji Amos, DILIP 32 [place] [address] 09/29/2025 7:30 AM EST Appointment [facility] [address] [address] Kemar Storey MD 499 [facility] 300 [place] [address] 10/06/2025 7:40 AM EST Office Visit [facility] Medical [address] [phone] Maria D Hinojosa, AROMATHERAPIST [address] [place] [address] 11/03/2025 7:30 AM EST Office [facility] [address] [phone] Milan Rodriguez, AROMATHERAPIST [address] [facility] [address] [place] [address] 11/24/2025 8:00 AM EST Office Visit [facility] 100 [facility] [address] [place] [address] Ranjana Villarreal PA-C 100 [place] [address] documented as of this encounter Visit Diagnoses Not on filedocumented in this encounter Care Teams Grounds Caretaker Relationship Specialty Start Date End Date Ranjana Villarreal PA-C 100 [place] [address] PCP - General Internal Medicine 11/03/24 documented as of this encounter
--- OUTSIDE RECORDS SUMMARY | 2025-09-08 19:37 | XMS_ITS | Encounter Summary ---
Author Organization [facility] Address 100 [place] [address] Care Team Providers Care Preassembler Printed Circuit Board Name Role Phone Ranjana Villarreal PA-C Primary Care Provi erika Encounter Details Date Type Department Care Team (Late st Contact Info) Description 12/25/2024 Scanned Document [facility] NEPHROLOGY SCAN Nephrology, Scan Social [...] 9:45 AM EST Appointment [facility] [address] [address] Kemar Storey MD [address] [address] 09/18/2025 8:00 AM EST Telemedicine Clinical Support [facility] [place] [facility] 32 [facility] 1st [place] [address] Meredith Waters, MARY 31 [facility] [address] [address] Reji Amos, DILIP 32 [place], [place] [phone] 09/29/2025 7:30 AM EST Appointment [facility] [address] [address] Kemar Storey MD [address] 4[address] 10/06/2025 7:40 AM EST Office Visit [address] [phone] Maria D Hinojosa, MARCOS 699 [place] [address] 11/03/2025 7:30 AM EST Office Visit [facility] [address] [phone] Milan Rodriguez APRN [address] [address] 11/24/2025 8:00 AM EST Office Visit [address] [address] Ranjana Villarreal PA-C [address] [place] [address] documented as of this encounter Visit Diagnoses Not on filedocumented in this encounter Care Teams Preassembler Printed Circuit Board Relationship Specialty Start Date End Date Ranjana Villarreal PA-C [address] [place] [address] PCP - General Internal Medicine 11/03/24 documented as of this encounter
--- OUTSIDE RECORDS SUMMARY | 2025-09-08 19:37 | XMS_ITS | Encounter Summary ---
Author Organization [facility] Address 100 [place] [address] Care Team Providers Care Director Of Enterprise Strategy Name Role Phone Ranjana Villarreal PA-C Primary Care Provi erika Encounter Details Date Type Department Care Team (Late st Contact Info) Description 05/04/2025 Scanned Document [facility] 12[address] [place] [address] Nephrology, Scan Social History Tobacco Use Types [...] 09/15/2025 9:45 AM EST [facility]ointment [facility] [address] [address] Kemar Storey MD [address] [facility] [address] [place] [address] 09/18/2025 8:00 AM EST Telemedicine Clinical Support [facility] [place] [facility] 32 [facility] 1st [place] [phone] Meredith Waters NP 31 [facility] [address] [address] Reji Amos, DILIP 32 [place] [address] 09/29/2025 7:30 AM EST Appointment [facility] [address] [address] Kemar Storey MD [address] [address] 10/06/2025 7:40 AM EST Office Visit [facility] Medical [address] [phone] Maria D Hinojosa, MEDICAL RECORDS LIBRARY PROFESSOR 309 [place] [address] 11/03/2025 7:30 AM EST Office Visit [facility] [address] [phone] Milan Rodriguez APRN [address] [address] 11/24/2025 8:00 AM EST Office Visit [facility] [address] [place] [address] Ranjana Villarreal PA-C [address] [place] [address] documented as of this encounter Visit Diagnoses Not on filedocumented in this encounter Care Teams Director Of Enterprise Strategy Relationship Specialty Start Date End Date Ranjana Villarreal PA-C [address] [place] [address] PCP - General Internal Medicine 11/03/24 documented as of this encounter
--- OUTSIDE RECORDS SUMMARY | 2025-09-08 19:37 | XMS_ITS | Encounter Summary ---
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 No 07/27/2025 [facility] Utilities Answer Date Recorded In the [...] 9:45 AM EST Appointment [facility] [address] [address] Kemar Storey MD 499 [facility] [address] [place] [address] 09/18/2025 8:00 AM EST Telemedicine Clinical Support [facility] [place] [facility] Services 32 [facility] 1st [place] [address] Meredith Waters NP 31 [facility] [address] [address] Reji Amos, DILIP 32 [place] [address] 09/29/2025 7:30 AM EST Appointment [facility] [address] [address] Kemar Storey MD [address] [address] 10/06/2025 7:40 AM EST Office Visit [facility] [address] [phone] Maria D Hinojosa, STEREOTYPE MOLDER 609 [place] [address] 11/03/2025 7:30 AM EST Office Visit [facility] [address] [phone] Milan Rodriguez APRN [address] [address] 11/24/2025 8:00 AM EST Office Visit [facility] [place] [address] [place] [address] Ranjana Villarreal PA-C [address] [place] [address] documented as of this encounter Visit Diagnoses Not on filedocumented in this encounter Care Teams Bunk Assembler Relationship Specialty Start Date End Date Ranjana Villarreal PA-C [address] [place] [address] PCP - General Internal Medicine 11/03/24 documented as of this encounter
--- OUTSIDE RECORDS SUMMARY | 2025-09-08 19:38 | XMS_ITS | Encounter Summary ---
Author Organization [facility] Address [address] [place] [address] Care Team Providers Care Concrete Block Plant Supervisor Name Role Phone Ranjana Villarreal PA-C Primary Care Provi erika Encounter Details Date Type Department Care Team (Late st Contact Info) Description 12/09/2024 Scanned Document [facility] PULMONOLGY SCAN Pulmonary, Scan Social History Tobacco [...] 9:45 AM EST Appointment [facility] [address] [address] Kemar Storey MD [address] [address] 09/18/2025 8:00 AM EST Telemedicine Clinical Support [facility] [place] Nutrition Services 32 [facility] 1st [place] [address] Meredith Waters, MARY 31 [facility] [address] [address] Reji Amos, DILIP 32 [place], [place] [phone] 09/29/2025 7:30 AM EST Appointment [facility] [address] [address] Kemar Storey MD [address] 6[address] 10/06/2025 7:40 AM EST Office Visit [address] [phone] Maria D Hinojosa, SPECIAL EDUCATION ITINERANT TEACHER 699 [place] [address] 11/03/2025 7:30 AM EST Office Visit [facility] [address] [phone] Milan Rodriguez APRN [address] [address]99[address] 11/24/2025 8:00 AM EST Office Visit [address] [address] Ranjana Villarreal PA-C [address] [place] [address] documented as of this encounter Visit Diagnoses Not on filedocumented in this encounter Care Teams Concrete Block Plant Supervisor Relationship Specialty Start Date End Date Ranjana Villarreal PA-C [address] [place] [address] PCP - General Internal Medicine 11/03/24 documented as of this encounter
--- OUTSIDE RECORDS SUMMARY | 2025-09-08 19:38 | XMS_ITS | Encounter Summary ---
Author Organization [facility] Address [address] [place] [address] Care Team Providers Care Manager Report Name Role Phone Ranjana Villarreal PA-C Primary Care Provi erika Encounter Details Date Type Department Care Team (Late st Contact Info) Description 08/25/2025 Scanned Document [facility] 499 [place] [phone] Kemar Storey MD [address] [place] [address] Social History Tobacco Use Types Packs/Day Years [...] and Family Not on file 07/27/2025 Attends Scientologist Services Not on file 07/27 Active Member [...] any time in the past 12 m [facility], were you homeless or living in a long term (including now)? No 07/27/2025 [facility] Utilities Answer Date Recorded In the past 12 months has th e [employer], gas, oil, or water company threatened to [...] 09/15/2025 9:45 AM EST Appointment [facility] [address] [address] Kemar Storey MD 499 [facility] [address] [place] [address] 09/18/2025 8:00 AM EST Telemedicine Clinical Support [facility] Bone and Joint [place] Nutrition Services 32 [facility] 1st [place] [address] Meredith Waters NP 31 [facility] [address] [address] Reji Amos, DILIP 32 [place] [address] 09/29/2025 7:30 AM EST Appointment [facility] [address] [address] Kemar Storey MD 499 [facility] 300 [place] [address] 10/06/2025 7:40 AM EST Office Visit [facility] Medical [address] [phone] Maria D Hinojosa, PATTERN MAKER PROGRAMER 429 [place] [address] 11/03/2025 7:30 AM EST Office Visit [facility] [address] [phone] Milan Rodriguez, PATTERN MAKER PROGRAMER 499 [facility] [address] [place] [address] 11/24/2025 8:00 AM EST Office Visit [facility] 100 [facility] [address] [place] [address] Ranjana Villarreal PA-C 100 [place] [address] documented as of this encounter Visit Diagnoses Not on filedocumented in this encounter Care Teams Manager Report Relationship Specialty Start Date End Date Ranjana Villarreal PA-C 100 [place] [address] PCP - General Internal Medicine 11/03/24 documented as of this encounter
--- OUTSIDE RECORDS SUMMARY | 2025-09-08 19:38 | XMS_ITS | Encounter Summary ---
Author Organization [facility] Address [address] [place] [address] Care Team Providers Care Jewel Stringer Name Role Phone Ranjana Villarreal PA-C Primary Care Provi erika Encounter Details Date Type Department Care Team (Late st Contact Info) Description 03/19/2025 Scanned Document [facility] [address] [place] [address] Pulmonary, Scan Social History Tobacco Use Types [...] 09/15/2025 9:45 AM EST Appointment [facility] [address] [address] Kemar Storey MD 499 [facility] [address] [place] [address] 09/18/2025 8:00 AM EST Telemedicine Clinical Support [facility] [place] Nutrition Services 32 [facility] 1st [place] [address] Meredith Waters NP 31 [facility] [address] [address] Reji Amos, DILIP 32 [place] [address] 09/29/2025 7:30 AM EST Appointment [facility] [address] [address] Kemar Storey MD [address] [address] 10/06/2025 7:40 AM EST Office Visit [facility] Group [address] [phone] Maria D Hinojosa, BRICKLAYER HELPER [address] [place] [address] 11/03/2025 7:30 AM EST Office Visit [facility] [address] [phone] Milan Rodriguez APRN 499 [facility] [address] [place] [address] 11/24/2025 8:00 AM EST Office Visit [facility] [place] [address] [place] [address] Ranjana Villarreal PA-C [address] [place] [address] documented as of this encounter Visit Diagnoses Not on filedocumented in this encounter Care Teams Jewel Stringer Relationship Specialty Start Date End Date Ranjana Villarreal PA-C [address] [place] [address] PCP - General Internal Medicine 11/03/24 documented as of this encounter
--- OUTSIDE RECORDS SUMMARY | 2025-09-08 19:38 | XMS_ITS | Clinical Summary ---
Author Organization [facility] Address [address] [place] [address] Care Team Providers Care Marketing Project Coordinator Name Role Phone Unavailable Primary Care Provider [...] 2025 07/15/2020, 07/01, 08/01/2016, Additional history exists RSV (1 - 1-dose 75+ series) 2041 HPV Vaccine (No Doses Required) Completed Hep A Aged Out No longer eligi ble based on patient's age to complete this topic Hib Aged Out No longer eligi ble based on patient's age to complete this topic Meningococcal ACWY Aged Out No longer eligible based on patient's age to complete this topic
--- OUTSIDE RECORDS SUMMARY | 2025-09-08 19:38 | XMS_ITS | Encounter Summary ---
Author Organization [facility] Address [address] [place] [address] Care Team Providers Care Field Captain Name Role Phone Ranjana Villarreal PA-C Primary Care Provi erika Encounter Details Date Type Department Care Team (Late st Contact Info) Description 05/15/2025 Scanned Document [facility] [address] [place] [address] Cardiology, Scan Social History Tobacco Use Types [...] 09/15/2025 9:45 AM EST Appointment [facility] [address] [address] Kemar Storey MD 499 [facility] [address] [place] [address] 09/18/2025 8:00 AM EST Telemedicine Clinical Support [facility] [place] Nutrition Services 32 [facility] 1st [place] [address] Meredith Waters NP 31 [facility] [address] [address] Reji Amos, DILIP 32 [place] [address] 09/29/2025 7:30 AM EST Appointment [facility] [address] [address] Kemar Storey MD [address] [address] 10/06/2025 7:40 AM EST Office Visit [facility] Group [address] [phone] Maria D Hinojosa, MEDICATION RECONCILIATION TECHNICIAN [address] [place] [address] 11/03/2025 7:30 AM EST Office Visit [facility] [address] [phone] Milan Rodriguez APRN 499 [facility] [address] [place] [address] 11/24/2025 8:00 AM EST Office Visit [facility] [place] [address] [place] [address] Ranjana Villarreal PA-C [address] [place] [address] documented as of this encounter Visit Diagnoses Not on filedocumented in this encounter Care Teams Field Captain Relationship Specialty Start Date End Date Ranjana Villarreal PA-C [address] [place] [address] PCP - General Internal Medicine 11/03/24 documented as of this encounter
--- OUTSIDE RECORDS SUMMARY | 2025-09-08 19:38 | XMS_ITS | Clinical Summary ---
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 OTHER SURGICAL HISTORY 2004 PROCEDURE: HISTORICAL [...] ED evaluation 06/29/18, referred to Dr. Ewing, [facility] wound care Managed with IV abx via PICC line through ID, eval with Dr. Harris for skin graft 08/2018 Anxiety 09/17/2018 DX:Anxiety; COMM ENT: Panic attacks Diabetic neuropathy ([facility] V24, [facility] V28) 09/26/2018 DX:Diabetic neuropathy ([facility]) Umbilical hernia 09/26/2018 DX:Umbilical he rnia Type 2 diabetes mellitus wit h neurological manifestations ([facility] V24, [facility] V28) 09/26/2018 DX:Type 2 diabetes mellitus with neurological manifestations ([facility]); COMMENT: Endo consult with Dr. Garces Type 2 diabetes mellitus wit h renal manifestations ([facility] V24, [facility] V28) 01/15/2019 DX:Type 2 diabetes mellitus with renal manifestations ([facility]) Chronic gastric ulcer DX:Chronic gastric ulcer Depression DX:Depression ALIYAH on CPAP 01/15/2019 DX:ALIYAH on CPAP GERD (gastroesophageal reflux disease) 01/15/2019 DX:GERD (gastroesophageal reflux disease) Type 2 diabetes mellitus wit h vascular disease ([facility] V24, [facility] V28) 10/14/2012 DX:Type 2 diabetes mellitus with vascular disease ([facility]) IBS (irritable bowel syndrome) 01/15/2019 D X:IBS (irritable bowel syndrome) Carpal tunnel syndrome of left wrist 01/15/2019 DX:Carpal tunnel syndrome of left wrist Amos's esophagus 03/23/2022 DX:Amos's esophagus Edgar grade A esophagitis 03/23/2022 DX:Edgar grade A esophagitis Diabetes mellitus ([facility] V 24, [facility] V28) DX:Diabetes mellitus ([facility]) Hypertension DX:Hypertension Hypercholesterolemia DX:Hypercho lesterolemia [...] 08/05/2024 7:37 AM EST Plan of Treatment Upcoming Encounters Date Type Department Care Team (Late st Contact Info) Description 09/28/2025 1:45 PM EST Appointment [facility] [address] [address] Health Maintenance Due Date Last Done Comments [...] Signed Date: 08/05/2024 08:54 ET Workstation ID: [id number] Transcribed By: Self Edit Transcribed Date: 08/05/2024 08:44 ET Narrative 08/05/2024 8:54 AM EST EXAM: SCREENING MAMMOGRAPHY, BILATERAL HISTORY: SCREENING. Mother diagnosed with breast cancer age 56. COMPARISON: 03/09/2023, 12/20/2021, 09/10/2020 TECHNIQUE: Synthesized CC and MLO projections of each breast. Tomosynthesis of each breast in the CC and MLO projections. ADDITIONAL IMAGING: None Computer-aided detection was employed with the [employer] 3-D. TISSUE DENSITY: There are scattered [...] None Computer-aided detection was employed with the [employer] 3-D. TISSUE DENSITY: There are scattered [...] Signed Date: 08/05/2024 08:54 ET Workstation ID: [id number] Transcribed By: Self Edit Transcribed Date: 08/05/2024 08:44 ET us Self Referral Sppl IMG BI PROCEDURES Final Resul t from Last 3 Months or Most Recently Relevant to Health Maintenance Insurance ([facility]) Care Teams Battery Tester Relationship Specialty Start Date End Date Joel Alegria NP [address] [place], [place] PCP - General Family Medicine 08/01/24
--- OUTSIDE RECORDS SUMMARY | 2025-09-08 19:39 | XMS_ITS | Encounter Summary ---
Author Organization [facility] Address [address] [place] [address] Care Team Providers Care Stave Hewer Name Role Phone Ranjana Villarreal PA-C Primary Care Provi erika Encounter Details Date Type Department Care Team (Late st Contact Info) Description 04/07/2025 Scanned Document [facility] [address] [place] [address] Nephrology, Scan Social History Tobacco Use Types [...] 09/15/2025 9:45 AM EST [facility]ointment [facility] [address] [address] Kemar Storey MD 499 [facility] [address] [place] [address] 09/18/2025 8:00 AM EST Telemedicine Clinical Support [facility] [place] Nutrition Services 32 [facility] 1st [place] [address] Meredith Waters NP 31 [facility] [address] [address] Reji Amos, DILIP 32 [place] [address] 09/29/2025 7:30 AM EST Appointment [facility] [address] [address] Kemar Storey MD [address] [address] 10/06/2025 7:40 AM EST Office Visit [facility] Medical [address] [phone] Maria D Hinojosa, ORTHOPAEDIC NURSE [address] [place] [address] 11/03/2025 7:30 AM EST Office Visit [facility] [address] [phone] Milan Rodriguez APRN [address] 8[address] 11/24/2025 8:00 AM EST Office Visit [facility] [address] [place] [phone] Ranjana Villarreal PA-C [address] [place] [address] documented as of this encounter Visit Diagnoses Not on filedocumented in this encounter Care Teams Stave Hewer Relationship Specialty Start Date End Date Ranjana Villarreal PA-C [address] [place] [address] PCP - General Internal Medicine 11/03/24 documented as of this encounter
--- OUTSIDE RECORDS SUMMARY | 2025-09-08 19:39 | XMS_ITS | Clinical Summary ---
Author Organization [facility] Prior to 02/28/[address] [place] [address] Care Team Providers Care Register Clerk Name Role Phone Unavailable Primary Care Provider [...] Mathis Personal/Family Self 1965 A [address] [place] [address]
--- OUTSIDE RECORDS SUMMARY | 2025-09-08 19:39 | XMS_ITS | Encounter Summary ---
Author Organization [facility] Address [address] [place] [address] Care Team Providers Care Mens Locker Room Attendant Name Role Phone Ranjana Villarreal PA-C Primary Care Provi erika Encounter Details Date Type Department Care Team (Late st Contact Info) Description 06/19/2025 Scanned Document [facility] Pulmonary [place] 704 [facility] [address] [place] [phone] Maria D Hinojosa, BACKEND PYTHON DEVELOPER 6[address] [place] [address] Social History Tobacco Use Types Packs/Day Years [...] 9:45 AM EST Appointment [facility] [address] [address] Kemar Storey MD 499 [facility] [address] [place], [place] [address] 09/18/2025 8:00 AM EST Telemedicine Clinical Support [facility] Bone [facility] [place] Nutrition Services 32 [facility] 1st [place] [address] Meredith Waters NP 31 [facility] [address] [address] Reji Amos, DILIP 32 [place] [address] 09/29/2025 7:30 AM EST Appointment [facility] [address] [address] Kemar Storey MD [address] [address] 10/06/2025 7:40 AM EST Office Visit [facility] [address] [phone] Maria D Hinojosa, BACKEND PYTHON DEVELOPER [address] [place] [address] 11/03/2025 7:30 AM EST Office Visit [facility] [address] [address] Milan Rodriguez, BACKEND PYTHON DEVELOPER 499 [facility] [address] [place] [address] 11/24/2025 8:00 AM EST Office Visit [facility] 100 [facility] [address] [place] [address] Ranjana Villarreal PA-C [address] [place] [address] documented as of this encounter Visit Diagnoses Not on filedocumented in this encounter Care Teams Mens Locker Room Attendant Relationship Specialty Start Date End Date Ranjana Villarreal PA-C [address] [place] [address] PCP - General Internal Medicine 11/03/24 documented as of this encounter
--- OUTSIDE RECORDS SUMMARY | 2025-09-08 19:39 | XMS_ITS | Encounter Summary ---
Author Organization [facility] Address [address] [place] [address] Care Team Providers Care Dried Fruit Washer Name Role Phone Ranjana Villarreal PA-C Primary Care Provi erika Encounter Details Date Type Department Care Team (Late st Contact Info) Description 06/19/2025 Scanned Document [facility] Pulmonary [place] 704 [facility] [address] [place] [address] Maria D Hinojosa, RAFTSMAN [address] [place] [address] Social History Tobacco Use Types Packs/Day Years [...] 9:45 AM EST Appointment [facility] [address] [address] Kemar Storey MD 499 [facility] [address] [place], [place] [address] 09/18/2025 8:00 AM EST Telemedicine Clinical Support [facility] Bone and Joint [place] Nutrition Services 32 [facility] [address]st [place] [address] Meredith Waters NP 31 [facility] [address] [address] Reji Amos, DILIP 32 [place] [address] 09/29/2025 7:30 AM EST Appointment [facility] [address] [address] Kemar Storey MD [address] [address] 10/06/2025 7:40 AM EST Office Visit [facility] Medical [address] [phone] Maria D Hinojosa, RAFTSMAN [address] [place] [address] 11/03/2025 7:30 AM EST Office Visit [facility] [address] [address] Milan Rodriguez, RAFTSMAN 499 [facility] [address] [place] [address] 11/24/2025 8:00 AM EST Office Visit [facility] 100 [facility] [address] [place] [address] Ranjana Villarreal PA-C 100 [place] [address] documented as of this encounter Visit Diagnoses Not on filedocumented in this encounter Care Teams Dried Fruit Washer Relationship Specialty Start Date End Date Ranjana Villarreal PA-C 100 [place] [address] PCP - General Internal Medicine 11/03/24 documented as of this encounter
--- OUTSIDE RECORDS SUMMARY | 2025-09-08 19:39 | XMS_ITS | Encounter Summary ---
Author Organization [facility] Address [address] [place] [address] Care Team Providers Care Desk Sergeant Name Role Phone Ranjana Villarreal PA-C Primary Care Provi erika Encounter Details Date Type Department Care Team (Late st Contact Info) Description 04/01/2025 Scanned Document [address] [place] [address] Primary Care, Scan Social History [...] 9:45 AM EST Appointment [facility] [address] [address] Kemar Storey MD 499 [facility] [address] [place] [address] 09/18/2025 8:00 AM EST Telemedicine Clinical Support [facility] [place] Nutrition Services [address] [place] [address] 1[address] [place] [address] Meredith Waters NP 31 [facility] 204[address] [address] [place] [address] 09/29/2025 7:30 AM EST Appointment [facility] [address] [address] Kemar Storey MD [address] [address] 10/06/2025 7:40 AM EST Office Visit [facility] Group [facility] 100 [place] [address] Maria D Hinojosa, SFDC TECHNICAL ARCHITECT [address] [place] [address] 11/03/2025 7:30 AM EST Office Visit [facility] [address] [phone] Milan Rodriguez APRN [address] [address] 11/24/2025 8:00 AM EST Office Visit [facility] [address] [place] [address] Ranjana Villarreal PA-C [address] [place] [address] documented as of this encounter Visit Diagnoses Not on filedocumented in this encounter Care Teams Desk Sergeant Relationship Specialty Start Date End Date Ranjana Villarreal PA-C [address] [place] [address] PCP - General Internal Medicine 11/03/24 documented as of this encounter
--- OUTSIDE RECORDS SUMMARY | 2025-09-08 19:40 | XMS_ITS | Encounter Summary ---
Author Organization [facility] Address [address] [place] [address] Care Team Providers Care Chip Separator Name Role Phone Ranjana Villarreal PA-C Primary Care Provi erika Encounter Details Date Type Department Care Team (Late st Contact Info) Description 07/20/2025 Scanned Document [facility] [place] at [address] [phone] Orthopedic Surgery, Scan Social History [...] 9:45 AM EST Appointment [facility] [address] [phone] Kemar Storey MD [address] [id number] 09/18/2025 8:00 AM EST Telemedicine Clinical Support [facility] [place] [facility] [address] [facility] [address] [place] [phone] Meredith Waters NP [address] [facility] [address] [address] [place] [address] 09/29/2025 7:30 AM EST Appointment [facility] [address] [phone] Kemar Storey MD [address] [address] 10/06/2025 7:40 AM EST Office Visit [facility] [address] [address] Maria D Hinojosa, [employer] DERRICK OPERATOR [address] [place] [address] 11/03/2025 7:30 AM EST Office Visit [facility] [address] [phone] Milan Rodriguez APRN [address] [id number] 11/24/2025 8:00 AM EST Office Visit [facility] [address] [place] [phone] Ranjana Villarreal PA-C [address] [place] [address] documented as of this encounter Visit Diagnoses Not on filedocumented in this encounter Care Teams Chip Separator Relationship Specialty Start Date End Date Ranjana Villarreal PA-C [address] [place] [address] PCP - General Internal Medicine 11/03/24 documented as of this encounter
--- OUTSIDE RECORDS SUMMARY | 2025-09-08 19:40 | XMS_ITS | Clinical Summary ---
Author Organization [facility] Address [address] [place] [address] Care Team Providers Care Filling Mixer Name Role Phone Ranjana Villarreal PA-C Primary Care Provi eriak Allergies Active Allergy Reactions Criticality Noted Date [...] HOURS NEEDED FOR WHEEZING 12/05/19 24 Active Continuous Glucose Sensor (Dexcom G6 Sensor) [facility] [place] USE 1 SENSOR EVERY 10 DAYS 06/25/20 24 Active Continuous Glucose Transmitter (Dexcom G6 Transmitter) [facility] [place] 1 DEVICE BY DOES NOT APPLY ROUTE SEE ADMIN INSTRUCTIONS. CHANGE TRANSMITTER EVERY 3 MONTHS. 05/15/20 24 Active primidone (MYSOLINE) 50 MG tablet Take 1 tablet (50 mg total) by mouth nightly. 07/24/20 24 Active estradiol (ESTRACE) 0.01 % vaginal cream APPLY PEA-SIZED AMOUNT TO URETHRA DAILY X 1 MONTH THEN THREE DAYS A WEEK THEREAFTER 11/10/19 25 Active naltrexone (REVIA) 50 MG tablet Take 1 tablet (50 mg total) by mouth every morning. 12/24/19 25 Active PANTOprazole (PROTONIX) 40 MG EC tabletIndicatio ns:Amos's esophagus without dysplasia Take 1 tablet (40 mg total) by mouth daily. 90 tablet 3 01/23/20 25 Active budesonide-form oterol (SYMBICORT) 160-4.5 MCG/ACT inhaler [...] unspecified laterality Walker with seat & breaks [facility] [address] [place] [address] 1 each 04/08/20 25 Active hydroCHLOROthia zide (HYDRODIURIL) 25 MG tablet Take 1 tablet (25 mg total) by mouth daily. 07/20/20 25 Active methenamine hippurate (HIPREX) 1 g tablet Take 1 tablet (1 g total) by mouth 2 (two) times a day with meals. Active amLODIPine (NORVASC) 5 MG tabletIndicatio ns:Primary hypertension,Oc cipital neuralgia of left side Take 1 tablet (5 mg total) by mouth daily. 90 tablet 1 07/28/20 25 Active methocarbamol (ROBAXIN) 750 MG tabletIndicatio ns:Back pain, unspecified back location, unspecified back pain laterality, unspecified chronicity Take 1 tablet (750 mg total) by mouth 4 (four) times a day as needed for muscle spasms. 40 tablet 09/03/20 25 Active Respiratory Therapy Supplies DeviceIndicatio ns:Severe obstructive sleep apnea APAP 5 to 20 cm H2O with heated humidification and full CPAP set up. Diagnosis: ALIYAH, G 47.33. Length of need: 99, lifetime. ResMed AirSense 11 with MODEM and electronic connection medically necessary. 1 each 09/08/20 25 Active methocarbamol (ROBAXIN) 750 MG tabletIndicatio ns:Back pain, unspecified back location, unspecified back pain laterality, unspecified chronicity Take 1 tablet (750 mg total) by mouth 4 (four) times a day as needed for muscle spasms. 40 tablet 06/05/20 25 025 Discontin ued(Reord er) Active Problems Problem Noted Date Diagnosed Date Snoring 07/28/2025 Assessment & Plan (07/28/2025 1:03 PM EDT): Patient scheduled to pick pulling machine tender her home sleep study kit at the end of August. Dyspnea on exertion 07/28/2025 Assessment & Plan (07/28/2025 1:03 PM EDT): History of COVID in 2020 requiring a day ICU stay in hospital admission for sepsis, DKA, pneumonia. History of COVID in [place]22[place] with acute respiratory failure with hypoxia and post COVID syndrome. Patient follows with pulmonary out of [facility]. Last seen Tober 2024. Managed on Breyna. Has an albuterol inhaler that she uses occasionally. Bronchiectasis without complication 07/28/2025 Assessment & Plan (07/28/2025 1:03 PM EDT): History of COVID in 2020 requiring a day ICU stay in hospital admission for sepsis, DKA, pneumonia. History of COVID in 2022-[place] with acute respiratory failure with hypoxia and post COVID syndrome. Patient follows with pulmonary out of [facility]. Last seen Tober 2024. Managed on Breyna. Has an albuterol [...] EDT): Patient had endoscopy January 2025 with [facility]. Will be due again in 2027. [...] EDT): Patient had endoscopy January 2025 with [facility]. Will be due again in 2027. [...] Will check urine microalbumin -lab sent to [facility]. Monofilament intact on the right foot in [...] sleeve. Referral placed to Dr. Gongora at [facility] per patient's request. Peripheral vascular disease 11/03/2024 [...] Will check urine microalbumin -lab sent to [facility]. Monofilament intact on the right foot in all regions. Diminished in the left foot on the 3rd and 5th toes and midfoot. Carotid artery plaque 01/08/2024 Carotid artery stenosis with out cerebral infarction, bilateral 01/08/2024 Assessment & Plan (07/28/2025 1:03 PM EDT): Found incidentally when patient was in [facility] ER with left-sided headaches/blurred vision. Workup negative [...] EDT): Patient had endoscopy January 2025 with [facility]. Will be due again in 2027. [...] Encounters Date Type Department Care Team Description 09/03/2025 8:15 AM EST [facility] Visit [facility] [address] [facility] [facility] [address] [place] [address] Jared Rousseau MD Back pain, unspecified back location, unspecified back pain laterality, unspecified chronicity 09/02/2025 8:15 AM EST [facility] [address] [phone] Milan Rodriguez APRN Spondylosis of lumbosacral region without myelopathy or radiculopathy (Primary Dx) 08/26/2025 11:40 AM EST Procedure visit [facility] [address] [address] Donna White MD ALIYAH (obstructive sleep apnea) (Primary Dx); Snoring; Fatigue, unspecified type; Non-restorative sleep; Witnessed episode of apnea; Upper airway resistance syndrome; Frequent nocturnal awakening 08/25/2025 Scanned Document [facility] [address] [phone] Kemar Storey MD 08/25/2025 [facility] [address] [phone] Kemar Storey MD 08/19/2025 8:00 AM EST Telemedicine Clinical Support [facility] [address] [phone] Meredith Waters NP Barrett, Christopher, RD Type 2 diabetes mellitus without complication, with long-term current use of insulin (HCC) (Primary Dx); Morbid obesity (HCC) 08/12/2025 8:15 AM EST [facility] [address] [phone] Milan Rodriguez APRN Spondylosis of lumbosacral region without myelopathy or radiculopathy (Primary Dx) 08/06/2025 Scanned Document [facility] [address] [phone] Kemar Storey MD 08/06/2025 [facility] of [address] [phone] Kemar Storey MD 07/31/2025 Scanned Document [facility] [address] [place] [address] Urology, Scan 07/28/2025 8:30 AM EDT Office Visit [address] [phone] Ranjana Villarreal PA-C Annual physical exam (Primary Dx); Type 2 diabetes mellitus with diabetic neuropathic arthropathy, with long-term current use of insulin ([facility]); Diabetic polyneuropathy associated with type 2 diabetes mellitus ([facility]); Diabetic retinopathy associated with type 2 diabetes mellitus, macular edema presence unspecified, unspecified laterality, unspecified retinopathy severity ([facility]); Dyslipidemia; Amos's esophagus without dysplasia; Gastroesophageal reflux disease without esophagitis; Esophageal dysphagia; Morbid obesity ([facility]); Recurrent major depressive disorder, in partial remission; Primary insomnia; Primary hypertension; Carotid artery stenosis without cerebral infarction, bilateral; Irritable bowel syndrome with both constipation and diarrhea; Charcot's arthropathy; Chronic kidney disease, stage IV (severe) ([facility]); Bronchiectasis without complication ([facility]); Dyspnea on exertion; Post-COVID syndrome; Coronary artery disease involving venetie ira coronary artery of venetie ira heart without angina pectoris; Snoring; Back pain, unspecified back location, unspecified back pain laterality, unspecified chronicity; Primary osteoarthritis involving multiple joints; Recurrent UTI; Essential tremor; Peripheral vascular disease; Other diabetic neurological complication associated with type 2 diabetes mellitus ([facility]); Occipital neuralgia of left side; Stage 3 chronic kidney disease, unspecified whether stage 3a or 3b CKD (HCC) 07/27/2025 2:00 PM EDT [facility] [address] [place] [address] Matti Lambert PA Strain of muscle(s) and tendon(s) of the rotator cuff of right shoulder, initial encounter (Primary Dx); Right shoulder pain, unspecified chronicity 07/21/2025 [facility] [address] [phone] Kemar Storey MD 07/20/2025 4:53 PM EDT Hospital Encounter [facility] [address] [place] [phone] 07/20/2025 4:35 PM EDT Office Visit [facility] [place] [address] [facility] [place] [phone] David Land MD Ashe, Alexander, PA Acute pain of right shoulder (Primary Dx); Injury of right rotator cuff, initial encounter 07/20/2025 Scanned Document [facility] at [address] [phone] Orthopedic Surgery, Scan 07/17/2025 Scanned Document [facility] PULMONOLGY SCAN Pulmonary, Scan 07/13/2025 8:00 AM EDT Telemedicine Clinical Support [facility] [address] [place] [address] [address] [place] [phone] Meredith Waters NP Barrett, Christopher, RD Type 2 diabetes mellitus without complication, with long-term current use of insulin (HCC) (Primary Dx); Morbid obesity (HCC) 07/02/2025 8:45 AM EDT [facility] [address] [phone] Jared Rousseau MD Hill, Brian, APRN Spondylosis of lumbosacral region without myelopathy or radiculopathy (Primary Dx) 06/19/2025 Scanned Document [facility] [address] [place] [address] Maria D Hinojosa APRN 06/19/2025 Scanned Document [facility] [place] [address] [place] [address] Maria D Hinojosa APRN 06/18/2025 11:20 AM EDT Consult [facility] [address] [phone] Bestman, Natesha A, ENZYME CHEMIST Snoring (Primary Dx); Fatigue, unspecified type; Non-restorative sleep; Witnessed episode of apnea; Upper airway resistance syndrome; Frequent nocturnal awakening 06/17/2025 Scanned Document [facility] NEPHROLOGY SCAN Nephrology, Scan 06/12/2025 12:30 PM EDT Treatment [facility] [address] [place] [address] Rubi Woo, PT Acute low back pain with bilateral sciatica, unspecified back pain laterality (Primary Dx) 06/10/2025 8:00 AM EDT Telemedicine Clinical Support [facility] [place] [facility] 32 [facility] 1[address] [place] [address] Meredith Waters NP Barrett, Christopher, RD Type 2 diabetes mellitus without complication, with long-term current use of insulin (HCC) (Primary Dx); Morbid obesity (HCC) 06/09/2025 1:45 PM EDT Office Visit [facility] [address] [place] [address] Marc Reynolds MD Primary osteoarthritis of right knee (Primary Dx) from Last 3 Months Immunizations [...] and Family Not on file 07/27/2025 Attends [employer] Not on file 07/27 Active Member [...] money to buy more. Never true 07/27/20 Within the past 12 months, t he [...] any time in the past 12 m [facility], were you homeless or living in a residential (including now)? No 07/27/2025 [facility] Utilities [...] Reading Time Taken Comments Blood Pressure 134/82 08/12/2025 8:37 AM EST Pulse 84 08/12/2025 8:37 AM EST Temperature 36.1 C (97 F) 07/28/2025 8:26 AM EDT Respiratory Rate 15 08/12/2025 8:37 AM EST Oxygen Saturation 96% 07/28/2025 8:26 AM EDT Inhaled Oxygen Concentration - - Weight 127 kg (281 lb) 08/19/2025 8:22 AM EST Height 165.1 cm (5' 5 ) 08/12/2025 8:37 AM EST Body Mass Index 46.76 08/12/2025 8:37 AM EST Plan of Treatment Upcoming Encounters Date Type Department Care Team (Late st Contact Info) Description 09/15/2025 9:45 AM EST Appointment [facility] [address] [phone] Kemar Storey MD [address] [place] [address] 09/18/2025 8:00 AM EST Telemedicine Clinical Support [facility] [address] [phone] Meredith Waters NP [address] [facility] [address] [place], [place] [phone] Reji Amos, RD [address] [place] [address] 09/29/2025 7:30 AM EST Appointment [facility] [address] [phone] Kemar Storey MD [address] [facility] [address] [place], [place] [address] 10/06/2025 7:40 AM EST Office Visit [facility] [address] [place] [phone] Maria D Hinojosa, ENZYME CHEMIST [address] [place] [address] 11/03/2025 7:30 AM EST Office Visit [facility] [address] [phone] Milan Rodriguez APRN [address] [phone] 11/24/2025 8:00 AM EST Office Visit [address] [phone] Ranjana Villarreal PA-C [address] [place] [address] Health Maintenance Due Date Last Done Comments [...] 05/01/2025 07/18/2023, , 07/18/2018, Additional history exists COVID-19 Vaccine ( - 2024-2 6 season) 2025 06/13/2024, 08/05/2021, 12/29/2020, Additional history exists Lipid Panel 01/29/2026 01/29/2025 Creatinine with GFR 04/01/2026 04/01/2025, 04/01/2025, 01/29/2025, Additional history exists Foot Exam 07/28/2026 07/28/2025, 07/02, 07/28/2025, Additional history exists Physical 07/28/2026 07/28/2025 Medical Devices Implanted Type Area Supervisor Fertilizer Processing Device Identifier Shelf Expiration Date Model / Serial / Lot Nail/Dayron Nail/Dayron Foot Description:Charcot's and pl ate Procedures Procedure Name Priority Date/Time Associated Diagnosis Comments GENERAL SLEEP STUDY Routine 08/27/2025 1 :45 PM EST Snoring Fatigue, unspecified type Non-restorative sleep Witnessed episode of apnea Upper airway resistance syndrome Frequent nocturnal awakening MRI SHOULDER W/O CONTRAST-RIGHT Routine 08/17/2025 7:31 PM EST Right shoulder pain, unspecified chronicity XR SHOULDER 2+ VIEWS-RIGHT STAT 07/20/2025 4:59 [...] Recently Relevant to Health Maintenance Results * General Sleep Study (08/27/2025 1:45 PM EST) Anatomical Region Laterality Modality Other Narrative 08/27/2025 1:45 PM EST Donna White MD 09/05/2025 1:47 PM Division of Pulmonary, Critical Care, and Sleep Medicine [address] [place] [address] Patient Name: Osman Alcantar Recording Date: 08/26/2025 Gender: female Height: 5'5 Date of : 1965 Weight: 288, lbs Referring Physician: Maria D Hinojosa APRN Neck Circumference: na Interpreting Physician: Donna White MD Body Mass Index: 47.9 Castaner Sleepiness Scale: 14 HOME SLEEP APNEA TEST REPORT ICD-10 CODE: G47.33 TYPE OF SLEEP STUDY DONE: [X] Sleep Study Unattended (CPT CODE 74132) INDICATION: Osman Alcantar has been referred for a home sleep apnea test due to history of snoring, nonrestorative sleep, chronic fatigue. The patient's past medical history and medications were reviewed prior to analysis of the study. IMPRESSION: The findings support diagnosis of severe Obstructive Sleep Apnea with an overall Respiratory Event Index (ANABEL) of 49.4 events per hour, Apnea-Hypopnea Index (AHI) of 49.4 events per hour, and an oxygen saturation krysten of 79%. Sleep-related hypoxemia. RECOMMENDATIONS: The patient should initiate auto CPAP therapy at 5-18 cmH2O with heated humidification. Sleep oximetry on auto PAP is recommended in order to assess for residual sleep related hypoxemia and if abnormal --> attended PAP titration should be performed. Evaluation and treatment of reversible causes of upper airway obstruction could be considered. The patient should avoid alcohol and medications with sedative-hypnotic properties, as these may worsen sleep disordered breathing. The patient should avoid driving and operating heavy machinery during periods of sleepiness. Weight reduction is recommended (goal BMI 18.5 - 25 kg/m ). Adequate sleep hygiene with 7-8 hours of sleep and stable sleep-wake schedule recommended. FOLLOW UP: with Maria D Hinojosa APRN DATA SUMMARY: See attached sheet. RECORDING PROCEDURE AND DEFINITIONS: The study was performed using the Divesquare ApneaLink Air Type III Home Sleep Apnea Test (HSAT) device which provides high-quality signals to provide accurate conclusions. The channel recorded include: Airflow acquired with a nasal pressure sensor. Oxygen saturation (SpO2) was monitored using a pulse oximeter. Thoracic respiratory effort was recorded via proprietary [employer] technology using a simple pneumatic technology which has been tested and found comparable in accuracy to RIP technology. The heart rate is derived from the oximeter sensor and the snore signal is derived from the nasal pressure sensor. The device also records body position. The tracing was scored using 3 minute epochs. Data collected using computerized digital techniques and saved. AASM standards were followed for complete manual scoring by a score door technician (MANNIE). Sleep study was scored manually using the AASM manual for Scoring of Sleep and Associated Events. Rules, Terminology, and Technical Specifications version 3.0. The VIII.1.B definition of hypopneas was used (>= 4% desaturation from pre-even baseline). The data was reviewed by a board-certified sleep physician and the study was found to be technically adequate for interpretation of sleep disordered breathing. Respiratory Event Index (ANABEL) is the sum of apneas and hypopneas indexed per hour of scorable monitoring time (MT) on home sleep test. Apnea-Hypopnea Index (AHI) is the sum of apneas and hypopneas indexed per hour of total sleep time (TST). The monitoring time (MT) is the total recording time (TRT) minus periods of artifacts and time the patient was awake as determined by body position sensor or respiratory pattern. The ANABEL is considered a surrogate for AHI because HSAT uses MT in place of TST. Degree of sleep disordered breathing may be underestimated in type III HSAT since standard sleep staging channels are not monitored to allow for detection of hypopneas only associated with cortical arousals. Data quality: All channels required good single tracings for greater than 4 hours. AHI and ANABEL ranges: 0 to < 5 respiratory events per hour - normal, 5 to <15 mild disease, 15 to < 30 moderate disease, 30 and greater - severe disease. Donna White MD 09/05/2025 1:45 PM Diplomate, [place] [employer] Medicine Diplomate, [place] Board of Internal Medicine (Pulmonary, Critical Care) [employer] Procedure Note Donna White MD - 09/05/2025 1:45 PM EST Images from the original note were not included. Division of Pulmonary, Critical Care, and Sleep Medicine [address] [place] [address] Patient Name: Osman Alcantar Recording Date: 08/26/2025 Gender: female Height: 5'5 Date of : 1965 Weight: 288, lbs Referring Physician: Maria D Hinojosa APRN Neck Circumference: na Interpreting Physician: Donna White MD Body Mass Index: 47.9 Castaner Sleepiness Scale: 14 HOME SLEEP APNEA TEST REPORT ICD-10 CODE: G47.33 TYPE OF SLEEP STUDY DONE: [X] Sleep Study Unattended (CPT CODE 68310) INDICATION: Osman Alcantar has been referred for a home sleep apnea testdue to history of snoring, nonrestorative sleep, chronic fatigue. Thepatient's past medical history and medications were reviewed prior toanalysis of the study. IMPRESSION: The findings support diagnosis of severe Obstructive Sleep Apnea with anoverall Respiratory Event Index (ANABEL) of 49.4 events per hour,Apnea-Hypopnea Index (AHI) of 49.4 events per hour, and an oxygensaturation krysten of 79%. Sleep-related hypoxemia. RECOMMENDATIONS: The patient should initiate auto CPAP therapy at 5-18 cmH2O with heatedhumidification. Sleep oximetry on auto PAP is recommended in order to assess for residualsleep related hypoxemia and if abnormal --> attended PAP titration shouldbe performed. Evaluation and treatment of reversible causes of upper airway obstructioncould be considered. The patient should avoid alcohol and medications with sedative- hypnoticproperties, as these may worsen sleep disordered breathing. The patient should avoid driving and operating heavy machinery duringperiods of sleepiness. Weight reduction is recommended (goal BMI 18.5 - 25 kg/m ). Adequate sleep hygiene with 7-8 hours of sleep and stable sleep-wakeschedule recommended. FOLLOW UP: with Maria D Hinojosa APRN DATA SUMMARY: See attached sheet. RECORDING PROCEDURE AND DEFINITIONS: The study was performed using the Divesquare ApneaLink Air Type III Home SleepApnea Test (HSAT) device which provides high-quality signals to provideaccurate conclusions. The channel recorded include: Airflow acquired witha nasal pressure sensor. Oxygen saturation (SpO2) was monitored using apulse oximeter. Thoracic respiratory effort was recorded via proprietaryResMed technology using a simple pneumatic technology which has beentested and found comparable in accuracy to RIP technology. The heart rateis derived from the oximeter sensor and the snore signal is derived fromthe nasal pressure sensor. The device also records body position. Thetracing was scored using 3 minute epochs. Data collected usingcomputerized digital techniques and saved. AASM standards were followedfor complete manual scoring by a score door technician (MANNIE). Sleep studywas scored manually using the AASM manual for Scoring of Sleep andAssociated Events. Rules, Terminology, and Technical Specifications version 3.0. The VIII.1.B definition of hypopneas was used (>= 4%desaturation from pre-even baseline). The data was reviewed by franciscan healthard-certified sleep physician and the study was found to be technicallyadequate for interpretation of sleep disordered breathing. RespiratoryEvent Index (ANABEL) is the sum of apneas and hypopneas indexed per hour ofscorable monitoring time (MT) on home sleep test. Apnea-Hypopnea Index(AHI) is the sum of apneas and hypopneas indexed per hour of total sleeptime (TST). The monitoring time (MT) is the total recording time (TRT)minus periods of artifacts and time the patient was awake as determined bybody position sensor or respiratory pattern. The ANABEL is considered asurrogate for AHI because HSAT uses MT in place of TST. Degree of sleepdisordered breathing may be underestimated in type III HSAT since standardsleep staging channels are not monitored to allow for detection ofhypopneas only associated with cortical arousals. Data quality: Allchannels required good single tracings for greater than 4 hours. AHI Torito ranges: 0 to < 5 respiratory events per hour - normal, 5 to <15 milddisease, 15 to < 30 moderate disease, 30 and greater - severe disease. Donna White MD 09/05/2025 1:45 PM Diplomate, [place] [employer] Sleep Medicine Diplomate, [place] [employer] of Internal Medicine (Pulmonary, CriticalCare) [employer] us Maria D Hinojosa ENZYME CHEMIST [facility] ORDERABLES E dited Result - Final * MRI Shoulder w/o contrast-Right (08/17/2025 7:31 PM EST) Anatomical Region Laterality Modality Shoulder Right Magnetic Resonan ce 08/17/2025 6:45 PM EST 08/17/2025 6:45 PM EST Impressions 08/19/2025 10:05 AM EST 1. Mild supraspinatus tendinosis with probable bursal surface fraying/partial tearing measuring 1.6 x 2.1 cm (AP x ML). Mild subscapularis tendinosis with distal articular surface fraying/partial tearing. No full-thickness rotator cuff tendon tear. 2. Moderate acromioclavicular osteoarthritis. 3. Mild subacromial-subdeltoid bursitis. 4. Small glenohumeral joint effusion. Electronically signed by: Stephen Muhammad MD 08/19/2025 10:05 AM EST Thank you for referring your patient to us, Stephen Muhammad MD [phone] (Electronically Signed - 08/19/2025 10:05) Narrative 08/19/2025 10:05 AM EST EXAMINATION: MRI SHOULDER WITHOUT CONTRAST, RIGHT CLINICAL INFORMATION: Right shoulder pain. Injury on 07/06/2025. Evaluate for a rotator cuff tendon tear. COMPARISON: No relevant prior studies are available for comparison. TECHNIQUE: Multiplanar MR images of the right shoulder were obtained on a high-field scanner without intravenous contrast. FINDINGS: ROTATOR CUFF: Mild supraspinatus tendinosis with probable bursal surface fraying/partial tearing measuring approximately 1.6 x 2.1 cm (AP x ML). Mild subscapularis tendinosis with distal articular surface fraying/partial tearing. No full-thickness rotator cuff tendon tear. No muscle atrophy or fatty infiltration. BICEPS: Intact. CORACOACROMIAL ARCH: The undersurface of the acromion is flat with no subacromial spur. Moderate acromioclavicular osteoarthritis. Trace fluid within the subacromial-subdeltoid bursa, consistent mild bursitis. LABRUM/CAPSULE: No displaced labral tear. Intact inferior joint capsule. GLENOHUMERAL JOINT/MARROW: Intact articular cartilage. No acute osseous injury. Small glenohumeral joint effusion. Procedure Note Stephen Muhammad MD - 08/19/2025 EXAMINATION: MRI SHOULDER WITHOUT CONTRAST, RIGHT CLINICAL INFORMATION: Right shoulder pain. Injury on 07/06/2025. Evaluate for a rotator cufftendon tear. COMPARISON: No relevant prior studies are available for comparison. TECHNIQUE: Multiplanar MR images of the right shoulder were obtained on a high-fieldscanner without intravenous contrast. FINDINGS: ROTATOR CUFF: Mild supraspinatus tendinosis with probable bursal surfacefraying/partial tearing measuring approximately 1.6 x 2.1 cm (AP x ML).Mild subscapularis tendinosis with distal articular surfacefraying/partial tearing. No full-thickness rotator cuff tendon tear. No muscle atrophy or fatty infiltration. BICEPS: Intact. CORACOACROMIAL ARCH: The undersurface of the acromion is flat with nosubacromial spur. Moderate acromioclavicular osteoarthritis. Trace fluidwithin the subacromial-subdeltoid bursa, consistent mild bursitis. LABRUM/CAPSULE: No displaced labral tear. Intact inferior joint capsule. GLENOHUMERAL JOINT/MARROW: Intact articular cartilage. No acute osseousinjury. Small glenohumeral joint effusion. IMPRESSION: 1. Mild supraspinatus tendinosis with probable bursal surfacefraying/partial tearing measuring 1.6 x 2.1 cm (AP x ML). Mildsubscapularis tendinosis with distal articular surface fraying/partialtearing. No full-thickness rotator cuff tendon tear. 2. Moderate acromioclavicular osteoarthritis. 3. Mild subacromial-subdeltoid bursitis. 4. Small glenohumeral joint effusion. Electronically signed by: Stephen Muhammad MD 08/19/2025 10:05 AM EST RPWorkstation: [id number] Thank you for referring your patient to us, Stephen Muhammad MD [phone] (Electronically Signed - 08/19/2025 10:05) us Matti ESPINO IMG MRI ORDERABLES Final Result * XR Shoulder 2+ views-Right (07/20/2025 4:59 [...] OUTPATIENT REFERRAL ORDERABLES F inal Result * (ABNORMAL) Basic metabolic panel (04/01/2025 11:46 AM EDT) Glucose 399(H) 65 - 99 mg/dL [facility] [employer] [facility] Comment: Verified by repeat analysis. Fasting reference interval For someone without known diabetes, a glucose value >125 mg/dL indicates that they may have diabetes and this should be confirmed with a follow-up test. Blood Urea Nitrogen (BUN) 39(H) 7 - 25 mg/dL [facility] Creatinine 2.59(H) 0.50 - 1.03 mg/dL [facility] Creatinine w/ eGFR 21(L) > OR = 60 mL/min/1.7 3m2 [facility] BUN/Creatinine Ratio 15 6 - 22 (calc) [facility] Sodium 128(L) 135 - 146 mmol/L [facility] Potassium 5.1 3.5 - 5.3 mmol/L [facility] Chloride 90(L) 98 - 110 mmol/L [facility] CO2 29 20 - 32 mmol/L [facility] Calcium 9.6 8.6 - 10.4 mg/dL [facility] Blood Blood specimen / Unknown 04/01/2025 11:46 AM EDT 04/01/2025 11:46 AM EDT Ranjana Villarreal PA-C LAB BLOOD ORDERABLE S Final Result Performing Organization Address [facility]/ZIP Co de Phone Number [email or web address] [address] [place] [phone] * (ABNORMAL) Lipid panel with nonHDL (01/29/2025 1:22 PM EDT) Cholesterol, Total 124 <200 mg/dL [facility] Cholesterol, HDL 47(L) > OR = 50 mg/dL [facility] Triglycerides 153(H) <150 mg/dL [facility] LDL Cholesterol 53 mg/dL (calc) [facility] [facility] Comment: Reference range: <100 Desirable range <100 mg/dL for primary prevention; <70 mg/dL for patients with CHD or diabetic patients with > or = 2 CHD risk factors. LDL-C is now calculated using the Kush calculation, which is a validated novel method providing better accuracy than the Friedewald equation in the estimation of LDL-C. Sudarshan SS et al. BRITTNEE. 2013;310(19): 0176-1943 (http://education.c-LEcta/faq/CTN565) Cholesterol/HDL Ratio 2.6 <5.0 (calc) [facility] Non HDL Chol. (LDL+VLDL) 77 <130 mg/dL (calc) [facility] [facility] Comment: For patients with diabetes plus 1 major ASCVD risk factor, treating to a non-HDL-C goal of <100 mg/dL (LDL-C of <70 mg/dL) is considered a therapeutic option. Blood Blood specimen / Unknown 01/29/2025 1:22 PM EDT 01/29/2025 1:25 PM EDT Narrative [facility] - 01/30/2025 10:28 AM EDT FASTING:YES FASTING: YES Ranjana Villarreal PA-C LAB BLOOD ORDERABLE S Final Result Performing Organization Address [facility]/ZIP Co de Phone Number [email or web address] [address] [place] [phone] * (ABNORMAL) Hemoglobin A1c with Estimated Average Glucose (01/07/2024 4:32 AM EDT) Hemoglobin A1C 7.3(H) <5.7 % 01/07/2024 5:20 AM EDT [facility] Comment: A1c% Interpretation 5.7 - 6.0 Increase risk of diabetes 6.1 - 6.4 Higher risk of diabetes > or = 6.5 Consistent with diabetes Diabetes Care, 33(Supp 1):S1-S61, 2010 Estimated Average Glucose 163 mg/dL 01/07/2024 5:20 AM EDT [facility] Blood specimen (specimen) Blood specimen / Unknown 01/07/2024 4:32 AM EDT 01/07/2024 4:37 AM EDT Nas Garcia MD LAB BLOOD [place]AB[place] [address], [place] [address] from Last 3 Months or Most Recently Relevant to Health Maintenance Insurance [facility] OUT [facility] BLUE CROSS OUT OF [facility] BLUE CR[facility] OUT OF [facility] Advance Directives * Full Code (Latest Code Status on File) Date Activated Date Inactivated Comments 01/06/2024 5:40 PM 02/27/2025 8:16 AM Question Answer Comments Decision Thoroughly Discussed with: Patient * Full Code Date Activated Date Inactivated Comments 08/30/2023 12:10 PM 01/06/2024 2:18 PM Full Code Care Teams Filling Mixer Relationship Specialty Start Date End Date Ranjana Villarreal PA-C [address] [place] [address] PCP - General Internal Medicine 11/03/24
--- OUTSIDE RECORDS SUMMARY | 2025-09-08 19:40 | XMS_ITS | Encounter Summary ---
Author Organization [facility] Address [address] [place] [address] Care Team Providers Care Heel Padder Name Role Phone Ranjana Villarreal PA-C Primary Care Provi erika Encounter Details Date Type Department Care Team (Late st Contact Info) Description 07/17/2025 Scanned Document [facility] PULMONOLGY SCAN Pulmonary, Scan Social History [...] 9:45 AM EST Appointment [facility] [address] [phone] Kemar Storey MD [address] [address] 09/18/2025 8:00 AM EST Telemedicine Clinical Support [facility] [place] [facility] [address] [facility] 1[address] [place] [phone] Meredith Waters NP 31 [facility] [address] [address] Reji Amos, DILIP [address] [place], [place] [phone] 09/29/2025 7:30 AM EST Appointment [facility] [address] [phone] Kemar Storey MD [address] [address] 10/06/2025 7:40 AM EST Office Visit [address] [phone] Maria D Hinojosa, VISUAL MERCHANDISING COORDINATOR [address] [place] [address] 11/03/2025 7:30 AM EST Office Visit [facility] [address] [phone] Milan Rodriguez APRN [address] [address] 11/24/2025 8:00 AM EST Office Visit [facility] [place] 100 [facility] [address] [place] [address] Ranjana Villarreal PA-C [address] [place] [address] documented as of this encounter Visit Diagnoses Not on filedocumented in this encounter Care Teams Heel Padder Relationship Specialty Start Date End Date Ranjana Villarreal PA-C [address] [place] [address] PCP - General Internal Medicine 11/03/24 documented as of this encounter
--- OUTSIDE RECORDS SUMMARY | 2025-09-08 19:40 | XMS_ITS | Encounter Summary ---
Author Organization [facility] Address [address] [place] [address] Care Team Providers Care Alarm Mechanism Adjuster Name Role Phone Ranjana Villarreal PA-C Primary Care Provi erika Encounter Details Date Type Department Care Team (Late st Contact Info) Description 11/20/2024 Scanned Document [address] [place] [address] Primary Care, Scan Social History [...] 9:45 AM EST Appointment [facility] [address] [phone] Kemar Storey MD [address] [facility] [address] [place] [address] 09/18/2025 8:00 AM EST Telemedicine Clinical Support [facility] [place] [facility] 32 [facility] 1st [place] [phone] Meredith Waters NP 31 [facility] [address] [address] Reji Amos, DILIP [address] [place] [address] 09/29/2025 7:30 AM EST Appointment [facility] [address] [phone] Kemar Storey MD [address] [address] 10/06/2025 7:40 AM EST Office Visit [facility] [address] [phone] Maria D Hinojosa, SACK CLEANER [address] [place] [address] 11/03/2025 7:30 AM EST Office Visit [facility] [address] [phone] Milan Rodriguez APRN [address] [address] 11/24/2025 8:00 AM EST Office Visit [facility] [address] [place] [address] Ranjana Villarreal PA-C [address] [place] [address] documented as of this encounter Visit Diagnoses Not on filedocumented in this encounter Care Teams Alarm Mechanism Adjuster Relationship Specialty Start Date End Date Ranjana Villarreal PA-C [address] [place] [address] PCP - General Internal Medicine 11/03/24 documented as of this encounter
--- OUTSIDE RECORDS SUMMARY | 2025-09-08 19:40 | XMS_ITS | Continuity of Care Document ---
Author Organization [facility] [address] [facility] [address] [place] [address] Phone [phone] Care Team Providers Care Marketing Research Intern Name Role Phone Joel Alegria Care Team Information Powder Compounder [phone] Problems Active Problems Provider Date Type 2 diabetes mellitus Susan Bui M.D. Onset: 08/10/2023 Essential hypertension Rodger Batista Onset: 08/10/2023 Dyslipidemia Susan Bui M.D. Ons et: 08/10/2023 Essential tremor Ssuan Bui M.D. On set: 08/10/2023 Gastroesophageal reflux disease Susan [place] M.D. Onset: 08/10/2023 Amos's esophagus Susan Bui M.D. Onset: 08/10/2023 Diabetic peripheral neuropathy Susan rossi M.D. Onset: 08/10/2023 Charcot's arthropathy Eron Batista Onset: 08/10/2023 History of non-ST segment el evation myocardial infarction Susan Bui M.D. 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 07/31/2025 Humalog Kxohhji049Kgth/ML Solution Pen-Inject inject 10 units subcutaneously three times daily, before meals 30ml E11.9 Susan Bui M.D. 04/24/2025 Novolog Ojnvhpw792Ihtl/ML Solution Pen-Inject inject 10 subcutaneously units 3 times a day before meals 30ml E11.42 Susan Bui M.D. 06/30/2024 Baqsimi One Voqb5ci/Dose Powder spray into nostril as needed for low sugar reaction 1units Susan Bui M.D. 02/14/2024 Iioyyqlcywkcivddxru75o g Tablets 1 by mouth every day Unknown Ghiwkatle579-1.5mcg/Ac t Aerosol inhale 2 puffs by mouth twice daily Unknown Estradiol0.01% Cream Apply Pea-Sized Amount To Urethra Daily X 1 Month Then Three Days A Week Thereaf Unknown Methenamine Lsvjtppbb6xs Tablets Take 1 Tablet By Mouth Daily Unknown Naltrexone LHC50fx Tablets 1 by mouth every day Unknown Pantoprazole Tvbcfs74dp Tablets DR Take 1 Tablet By Mouth Every Morning (Before Breakfast) For 360 Days. Unknown Mqpjvwjat56jw Tablets Take 1 Tablet By Mouth Every Day For 30 Days Lynnette Cardona MD Atorvastatin Jdehltb39au Tablets 1 by mouth every day Unknown Amlodipine Wjihyyri8bu Tablets Take 1 Tablet (5 MG Total) By Mouth Daily. Unknown Repatha Jnezufwbh736da/ml Solution Auto-Inject inject 1 syringe under the skin every 2 weeks Unknown Aspirin 8181mg Tablets DR 1 by mouth every day Susan Bui M.D. Hydroxyzine KCB27eo Tablets Take 1 Tablet By Mouth Every Day as Needed Unknown Dexcom G6 SensorMisc use 1 sensor every 10 days 3units E11.42 Susan Bui M.D. Dexcom G6 SensorMisc Please See Attached For Detailed Directions Unknown Apudqyfudb840cf Capsules Take 2 Capsule By Mouth Three Times A Day Unknown Dexcom G6 TransmitterMisc To Use With Sensors DX E11.42 1units E11.42 Susan Bui M.D. Albuterol Sulfate RVF712(90Base) mcg/Act Aerosol Take 2 Puffs By Mouth Every 4 Hours as Needed For Wheeze Unknown Ipratropium Bromide0.06% Solution Administer 2 Sprays Into Each Nostril Every 6 Hours as Needed For Rhinitis. Unknown Hyoscyamine Sulfate0.125mg Tablets Take 1 Tablet By Mouth 4 Times Daily as Needed For Cramping Or Diarrhea For Up T Unknown Basaglar Lztdija914Otku/ML Solution Pen-Inject Inject 55 Units Into The Skin AT Bedtime 60ml E11.42 Susan Bui M.D. Trazodone RYD126oe Tablets Take 1 Tablet By Mouth Everyday AT Bedtime Unknown Vital Signs Date Vital Result Comment 07/31/2025 2:25pm BP Systolic 140 mmHg BP Diastolic 82 mmHg Heart Rate 92 /min Height 65 inches 5'5 Weight 292.00 lb BMI (Body Mass Index) 48.6 kg/m2 Results Test Acquired Date Facility Test Result H/L Range Note Glucose Fingerstick 07/31/2025 Inhouse Glucose Fingerstick 85 Hemoglobin A1c 07/31/2025 Inhouse Hemoglobin A1c 6.8% Glucose Fingerstick 10/09/2024 Inhouse Glucose Fingerstick 119 Hemoglobin A1c 10/09/2024 Inhouse Hemoglobin A1c 6.9% Glucose Fingerstick 02/14/2024 Inhouse Glucose Fingerstick 43 Hemoglobin A1c 02/14/2024 Inhouse Hemoglobin A1c 7.3% Glucose Fingerstick 10/12/2023 Inhouse Glucose Fingerstick 208 Hemoglobin A1c 10/12/2023 Inhouse Hemoglobin A1c 6.9% Gad65 Autoantibodies 08/15/2023 [facility] Gad65 Autoantibodies <5.0 1 Islet Cell Antibody 512 08/15/2023 [facility] Islet Cell Antibody 512 <7.5 2 Insulin Antibody 08/15/2023 [facility] Insulin Antibody 12 High 3 1 Reference range: 0.0 to 5.0 Unit: U/mL Test performed at [address], [place] [address] 2 Unit: U/mL (NOTE) Reference Range: <7.5 Negative > or EQ 7.5 Positive Test performed by [employer], [address] [facility], [place] [address] 3 Unit: uU/mL (NOTE) This test is also known as insulin autoantibody or IAA. This test was developed and its performance characteristics determined by [facility]. It has not been cleared or approved by the Food and Drug Administration. Reference Range: <5.0 Negative > or EQ 5.0 Positive Test performed by [employer], [address] [facility], [place] [address] Procedures Date Code Description Status 07/31/2025 50804 Glucose Monitoring Interpeta tion And Report Completed 08/10/2023 61564 Collection Of Venous Blood B y Venipuncture Completed Medical Devices Description No Information Available Encounters Type Date Location Provider Dx Diagnosis Office Visit 07/31/2025 2:15p Main Office Susan Bui M.D. E11.42 Type 2 diabetes mellitus with diabetic polyneuropathy E11.3293 Type 2 diab with mil d nonp rtnop without macular edema, bi I10 Essential (primary) hypertension I65.23 Occlusion and stenos is of bilateral carotid arteries E78.00 Pure hypercholestero lemia, unspecified N18.30 Chronic kidney disea se, stage 3 unspecified E11.21 Type 2 diabetes jorge itus with diabetic nephropathy Z79.4 intermediate manager (current) use of insulin Assessments Date Code Description Provider 07/31/2025 E11.42 Type 2 diabetes mellitus with diabetic polyneuropathy Susan Bui M.D. 07/31/2025 E11.3293 Type 2 diabetes mellitus with mild nonproliferative diabetic retinopathy without macular edema, bilateral Susan Bui M.D. 07/31/2025 I10 Essential (primary) hyperten andrei Susan Bui M.D. 07/31/2025 [address]65[address] enosis of bilateral carotid arteries Susan Bui M.D. 07/31/2025 E78.00 Pure hypercholes terolemia, unspecified Susan Bui M.D. 07/31/2025 N18.30 Chronic kidney d isease, stage 3 unspecified Susan Bui M.D. 07/31/2025 E11.21 Type 2 diabetes mellitus with diabetic nephropathy Susan Bui M.D. 07/31/2025 Z79.4 residential (current) use of i nsulin Susan Bui M.D. Plan of Treatment Future Appointment(s):* 11/30/2025 3:00 pm - Susan Bui M.D. at Main Office 08/10/2023 - Susan Bui M.D.* E11.42 Type 2 diabetes mellitus with diabetic polyneuropathy Functional Status Description No Information Available Mental Status Description No Information Available Referrals Refer to Reason for Referral Status Appt Chip Meyer MD POSSIBLE SEIZURES Closed [address] [place] [address] [address] [place] [address] [phone]
--- OUTSIDE RECORDS SUMMARY | 2025-09-08 19:40 | XMS_ITS | Encounter Summary ---
Author Organization [facility] Address [address] [place] [address] Care Team Providers Care Underwear Welter Name Role Phone Ranjana Villarreal PA-C Primary Care Provi erika Encounter Details Date Type Department Care Team (Late st Contact Info) Description 06/05/[address] [facility] [address] [place] [address] Neurology, Scan Social History Tobacco [...] 9:45 AM EST Appointment [facility] [address] [phone] Kemar Storey MD [address] [address] 09/18/2025 8:00 AM EST Telemedicine Clinical Support [facility] [place] [facility] [address] [place] [phone] Meredith Waters NP 31 [facility] [address] [address] [place] [address] 09/29/2025 7:30 AM EST Appointment [facility] [address] [address] Kemar Storey MD [address] [address] 10/06/2025 7:40 AM EST Office Visit [facility] [address] [place] [address] Maria D Hinojosa, WORD PROCESSING SPECIALIST [address] [place] [address] 11/03/2025 7:30 AM EST Office Visit [facility] [address] [phone] Milan Rodriguez APRN [address] [address] 11/24/2025 8:00 AM EST Office Visit [facility] [address] [place] [phone] Ranjana Villarreal PA-C [address] [place] [address] documented as of this encounter Visit Diagnoses Not on filedocumented in this encounter Care Teams Underwear Welter Relationship Specialty Start Date End Date Ranjana Villarreal PA-C [address] [place] [address] PCP - General Internal Medicine 11/03/24 documented as of this encounter
--- OUTSIDE RECORDS SUMMARY | 2025-09-08 19:41 | XMS_ITS | Encounter Summary ---
Author Organization [facility] Address [address] [place] [address] Care Team Providers Care Fashion Stylist Name Role Phone Ranjana Villarreal PA-C Primary Care Provi erika Encounter Details Date Type Department Care Team (Late st Contact Info) Description 06/17/2025 Scanned Document [facility] NEPHROLOGY SCAN Nephrology, Scan Social [...] AM EST Appointment [facility] [address] [phone] Kemar Storey MD [address] [address] 09/18/2025 8:00 AM EST Telemedicine Clinical Support [facility] [place] [facility] 32 [facility] [address] [place] [address] Meredith Waters NP 31 [facility] [address] [address] Reji Amos, DILIP [address] [place], [place] [phone] 09/29/2025 7:30 AM EST Appointment [facility] [address] [phone] Kemar Storey MD [address] [phone] 10/06/2025 7:40 AM EST Office Visit [address] [phone] Maria D Hinojosa, FALSEWORK BUILDER [address] [place] [address] 11/03/2025 7:30 AM EST Office Visit [facility] [address] [phone] Milan Rodriguez APRN [address] [address] 11/24/2025 8:00 AM EST Office Visit [place] [address] [facility] [address] [place] [address] Ranjana Villarreal PA-C [address] [place] [address] documented as of this encounter Visit Diagnoses Not on filedocumented in this encounter Care Teams Fashion Stylist Relationship Specialty Start Date End Date Ranjana Villarreal PA-C [address] [place] [address] PCP - General Internal Medicine 11/03/24 documented as of this encounter
== END 2025-09-08 13:42 | disposition home or self-care (01) ==
LOC: HO.HKASLDS 13:41
PROVIDERS: PCP Physician Assistant Medical; Visit Provider Internal Medicine Hypertension Specialist
DX: N18.9 Chronic kidney disease, unspecified (principal)
CPT/HCPCS: 36415; 80048

== ENCOUNTER 2025-09-09 15:41 | Outpatient (AMB) | payer BC, SELFPAY ==
--- OUTSIDE RECORDS SUMMARY | 2025-07-20 15:53 | XMS_ITS | Encounter Summary ---
Author Organization [facility] Address [address] [place] [address] Care Team Providers Care Project Management Manager Name Role Phone Ranjana Villarreal PA-C Primary Care Provi erika Encounter Details Date Type Department Care Team (Late st Contact Info) Description 07/20/2025 4:53 PM EDT Hospital Encounter [facility] [address] [place] [address] Social History Tobacco Use Types [...] and Family Not on file 07/27/2025 Attends Christianity Services Not on file 07/27 Active Member [...] any time in the past 12 m [facility], were you homeless or living in a residential (including now)? No 07/27/2025 [facility] Utilities Answer Date Recorded In the past 12 months has e [employer], gas, oil, or water company threatened to [...] 9:45 AM EST Appointment [facility] [address] [address] Kemar Storey MD [address] [place] [address] [address] [place] [phone] 09/18/2025 8:00 AM EST Telemedicine Clinical Support [facility] [place] [facility] 32 [facility] 1st [place] [phone] Meredith Waters NP 31 [facility] [address] [address] Reji Amos, DILIP 32 [place] [address] 09/29/2025 7:30 AM EST Appointment [facility] [address] [address] Kemar Storey MD [address] [address] 10/06/2025 7:40 AM EST Office Visit [address] [phone] Maria D Hinojosa, TECHNICAL MAINTENANCE SPECIALIST 699 [place] [address] 11/03/2025 7:30 AM EST Office Visit [facility] [address] [phone] Milan Rodriguez TECHNICAL MAINTENANCE SPECIALIST [address] [address] 11/24/2025 8:00 AM EST Office Visit [address] [phone] Ranjana Villarreal PA-C 100 [place] [address] documented as of this encounter Procedures Procedure [...] on filedocumented in this encounter Care Teams Project Management Manager Relationship Specialty Start Date End Date Ranjana Villarreal PA-C [address] [place] [address] PCP - General Internal Medicine 11/03/24 documented as of this encounter
--- NOTE | 2025-09-09 15:40 | HO.NEPHOV_ITS ---
Vital Signs 09/09/25 15:41 09/09/25 15:52 Height 5 ft 5 in Weight 290 lb BMI 48.3 BP 150/80 H 120/60 Blood Pressure Location Lt brachial Lt brachial Position Sitting Sitting Pulse 95 Pulse Source Pulse Oximeter Pulse Oximetry (%) 99 Oxygen Delivery Method Room Air Intake Visit Reasons: 3 Month F/U with labs [place] Required: No Accompanied by: Self / Same As Patient Allergies cephalexin Allergy (Intermediate, Verified 09/09/25 15:42) Rash metformin Adverse Reaction (Verified 09/09/25 15:42) diarrhea and vomiting Medication List - Last Reconciled 09/09/25 by Abhijit Ramires MD acetaminophen ER 650 mg PO Q12H PRN albuterol sulfate 2.5 mg (3 mL) inhalation Q4-6H PRN albuterol sulfate 90 mcg/actuation 2 puffs PO Q4-6H PRN amlodipine 5 mg PO DAILY amoxicillin-pot clavulanate 500-125 mg (Augmentin) 1 tab PO TID 10 days ascorbic acid (vitamin C) 1 g PO DAILY 90 days aspirin 81 mg PO DAILY atorvastatin 80 mg PO DAILY blood-glucose sensor ([employer] G6 Sensor device) As directed blood-glucose transmitter ([employer] G6 Transmitter device) As directed budesonide-formoterol 160-4.5 mcg/actuation (Symbicort) 2 puffs inhalation Q12H bupropion HCl XL 300 mg PO DAILY estradiol 0.01%(0.1mg/gram) 2 grams vaginal DAILY 90 days evolocumab (Repatha SureClick) 140 mg subcut Q2W 90 days fluticasone propionate 50 mcg/actuation (Flonase Allergy Relief) 1 spray intranasal DAILY gabapentin 600 mg (2 x 300 mg) PO TID 90 days hydrochlorothiazide 25 mg PO DAILY hydroxyzine HCl 10 mg PO DAILY PRN insulin glargine (Basaglar KwikPen U-100 Insulin) 50 units subcut QPM insulin lispro (Humalog KwikPen (U-100) Insulin) 10 sliding scale doses subcut USEASDIRECTD ipratropium bromide 2 sprays intranasal BID ipratropium-albuterol 0.5 mg-3 mg(2.5 mg base)/3 mL 3 mL inhalation Q6H PRN losartan 25 mg PO DAILY methenamine hippurate 1 g PO DAILY 90 days methocarbamol 750 mg PO Q6H PRN pantoprazole 40 mg PO DAILY polyethylene glycol 3350 (Miralax) 17 grams PO DAILY 30 days primidone 50 mg PO BEDTIME 90 days trazodone mg PO PFSH Medical History Carotid stenosis, bilateral Elevated serum GGT level Atherosclerotic cardiovascular disease Non-ST elevation [place] (NSTEMI) Action tremor Chronic headaches GERD (gastroesophageal reflux disease) Hyperlipidemia Depression Pneumonia Sepsis Barretts esophagus Dyslipidemia HTN (hypertension) Charcot's joint of foot Diabetes Surgical History History of esophagogastroduodenoscopy (EGD) Hx of colonoscopy H/O foot surgery Hx of cholecystectomy H/O: hysterectomy Family History Son Substance use disorder Father Substance use disorder Mother Substance use disorder Family/Other Substance use disorder Maternal Grandfather Heart problem Maternal Uncle Heart problem Paternal Grandmother Heart problem Sister Heart problem Social History Household Members: None Housing: Condominium Do you presently have visiting nurse or other home services: No Alcohol intake: never Patient Tobacco Use Status: Never used Tobacco e-Cigarette/Vaping Use: Never Used Second Hand Smoke Exposure: No Advance Directives Date on File: 07/25/23 service: No Current occupational status: employed 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 Current occupational exposures/hazards: No Cognitive needs: No Hearing needs: No Vision needs: No Physical Exam Vital Signs: Last Vital Signs Pulse 95 09/09/25 15:41 BP 120/60 09/09/25 15:52 Pulse Ox 99 09/09/25 15:41 Oxygen Delivery Method Room Air 09/09/25 15:41 BMI result Body Mass Index 48.3 Results Reviewed Nephrology Results: Sodium, (135-145) 139 mmol/L 09/08/25 Potassium, (3.3-5.1) 5.0 mmol/L 09/08/25 Chloride, (96-108) 106 mmol/L 09/08/25 Carbon Dioxide, (22-29) 25 mmol/L 09/08/25 BUN, (9-16) 34 mg/dL H 09/08/25 Creatinine, (0.5-1.4) 1.86 mg/dL H 09/08/25 Calcium, (8.4-10.2) 9.2 mg/dL 09/08/25 Urine Protein, (Neg-Trace) 100 (2+) mg/dL H 06/04/25 Assessment & Plan Assessment & Plan (1) CKD (chronic kidney disease): Code(s): N18.9 - Chronic kidney disease, unspecified Category: Medical Orders: Orders Complete Blood Count no Diff 3 Months N18.9 - Chronic kidney disease, unspecified Basic Metabolic Panel 3 Months N18.9 - Chronic kidney disease, unspecified Coding Diagnoses CKD (chronic kidney disease) N18.9
[2025-09-09 15:41] VITALS: BP 150/80; PULSE 95; O2SAT 99; BMI 48.3
--- NOTE | 2025-09-09 15:46 | HO.NEPHOV ---
Vital Signs 09/09/25 15:41 09/09/25 15:52 Height 5 ft 5 in Weight 290 lb BMI 48.3 BP 150/80 H 120/60 Blood Pressure Location Lt brachial Lt brachial Position Sitting Sitting Pulse 95 Pulse Source Pulse Oximeter Pulse Oximetry (%) 99 Oxygen Delivery Method Room Air Intake Visit Reasons: 3 Month F/U with labs Allergies cephalexin Allergy (Intermediate, Verified 09/09/25 15:42) Rash metformin Adverse Reaction (Verified 09/09/25 15:42) diarrhea and vomiting Medication List - Last Reconciled 09/09/25 by Abhijit Ramires MD acetaminophen ER 650 mg PO Q12H PRN albuterol sulfate 2.5 mg (3 mL) inhalation Q4-6H PRN albuterol sulfate 90 mcg/actuation 2 puffs PO Q4-6H PRN amlodipine 5 mg PO DAILY amoxicillin-pot clavulanate 500-125 mg (Augmentin) 1 tab PO TID 10 days ascorbic acid (vitamin C) 1 g PO DAILY 90 days aspirin 81 mg PO DAILY atorvastatin 80 mg PO DAILY blood-glucose sensor ([employer] G6 Sensor device) As directed blood-glucose transmitter ([employer] G6 Transmitter device) As directed budesonide-formoterol 160-4.5 mcg/actuation (Symbicort) 2 puffs inhalation Q12H bupropion HCl XL 300 mg PO DAILY estradiol 0.01%(0.1mg/gram) 2 grams vaginal DAILY 90 days evolocumab (Repatha SureClick) 140 mg subcut Q2W 90 days fluticasone propionate 50 mcg/actuation (Flonase Allergy Relief) 1 spray intranasal DAILY gabapentin 600 mg (2 x 300 mg) PO TID 90 days hydrochlorothiazide 25 mg PO DAILY hydroxyzine HCl 10 mg PO DAILY PRN insulin glargine (Basaglar KwikPen U-100 Insulin) 50 units subcut QPM insulin lispro (Humalog KwikPen (U-100) Insulin) 10 sliding scale doses subcut USEASDIRECTD ipratropium bromide 2 sprays intranasal BID ipratropium-albuterol 0.5 mg-3 mg(2.5 mg base)/3 mL 3 mL inhalation Q6H PRN losartan 25 mg PO DAILY methenamine hippurate 1 g PO DAILY 90 days methocarbamol 750 mg PO Q6H PRN pantoprazole 40 mg PO DAILY polyethylene glycol 3350 (Miralax) 17 grams PO DAILY 30 days primidone 50 mg PO BEDTIME 90 days trazodone mg PO HPI Comments Details: Ewelina is a pleasant 59 year woman with a history of longstanding diabetes mellitus. She has been referred for evaluation of CKD. Baseline creatinine is around 1.0-1.2 mg/dL about a year ago. In March of 2024 she was prescribed Ozempic. After few doses she was sick and she was having vomiting. She was hospitalized and received IV hydration. In March creatinine peaked to 2.2 mg/dL. Creatinine has been staying around 1.6 mg/dL for the last 3 months and she has been for further evaluation. She has had recurrent UTIs. The recent abdominal ultrasonogram showed unremarkable kidneys without any hydronephrosis. She has a history of occipital neuralgia. History of flu significant obesity in the hypertension. History of Charcot joint 07/23/24 Doing well Still has urinary symptoms and feels she might have UTI 12/24/24. Doing better Gained weight;BP elevated ; EAts popcorn everyday;No further UTI 04/01/25 The patient is a 59-year-old female presenting with hyperkalemia and back pain. The hyperkalemia was identified with a potassium level of 5.8 mmol/L, elevated from a previous level of 5.2 mmol/L in November. The patient has been on lisinopril for a while, and recently started taking meloxicam, which may have contributed to the increased potassium levels. The patient has been advised to discontinue meloxicam due to its potential to elevate potassium levels, especially in combination with lisinopril. The patient reports back pain for which she was prescribed meloxicam and a muscle relaxant. She has a history of diabetes mellitus and was advised against taking NSAIDs due to potential renal implications. The patient has experienced increased leg swelling, which is more pronounced than before, and is currently taking hydrochlorothiazide for fluid management. The patient's weight has decreased from 290 pounds in November to 281 pounds recently, despite the swelling. The patient denies any significant changes in diet that could have contributed to the hyperkalemia, such as increased intake of potassium-rich foods. 04/29 BP low ;Light headed 06/10/25 Feels better; BP stabilzed ;No lightheadedness ;Off Lisinopril 09/09/25 : Overall doing well. No new issues today [facility] Medical History Carotid stenosis, bilateral Elevated serum GGT level Atherosclerotic cardiovascular disease Non-ST elevation [place] (NSTEMI) Action tremor Chronic headaches GERD (gastroesophageal reflux disease) Hyperlipidemia Depression Pneumonia Sepsis Barretts esophagus Dyslipidemia HTN (hypertension) Charcot's joint of foot Diabetes Surgical History History of esophagogastroduodenoscopy (EGD) Hx of colonoscopy H/O foot surgery Hx of cholecystectomy H/O: hysterectomy Family History Son Substance use disorder Father Substance use disorder Mother Substance use disorder Family/Other Substance use disorder Maternal Grandfather Heart problem Maternal Uncle Heart problem Paternal Grandmother Heart problem Sister Heart problem Social History Household Members: None Housing: Condominium Do you presently have visiting nurse or other home services: No Alcohol intake: never Patient Tobacco Use Status: Never used Tobacco e-Cigarette/Vaping Use: Never Used Second Hand Smoke Exposure: No Advance Directives Date on File: 07/25/23 service: No Current occupational status: employed 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 Current occupational exposures/hazards: No Cognitive needs: No Hearing needs: No Vision needs: No Physical Exam Vital Signs: Last Vital Signs Pulse 95 09/09/25 15:41 BP 120/60 09/09/25 15:52 Pulse Ox 99 09/09/25 15:41 Oxygen Delivery Method Room Air 09/09/25 15:41 BMI result Body Mass Index 48.3 Results Reviewed Nephrology Results: Sodium, (135-145) 139 mmol/L 09/08/25 Potassium, (3.3-5.1) 5.0 mmol/L 09/08/25 Chloride, (96-108) 106 mmol/L 09/08/25 Carbon Dioxide, (22-29) 25 mmol/L 09/08/25 BUN, (9-16) 34 mg/dL H 09/08/25 Creatinine, (0.5-1.4) 1.86 mg/dL H 09/08/25 Calcium, (8.4-10.2) 9.2 mg/dL 09/08/25 Urine Protein, (Neg-Trace) 100 (2+) mg/dL H 06/04/25 Assessment & Plan Assessment & Plan (1) HTN (hypertension): Code(s): I10 - Essential (primary) hypertension Category: Medical (2) Hyperkalemia: Code(s): E87.5 - Hyperkalemia Category: Medical (3) CKD (chronic kidney disease): Code(s): N18.9 - Chronic kidney disease, unspecified Category: Medical (4) Obesity: Code(s): E66.9 - Obesity, unspecified Category: Medical (5) Anemia: Code(s): D64.9 - Anemia, unspecified Category: Medical Qualifiers: Anemia type: iron deficiency Plan Ewelina is a pleasant 59 woman with CKD 3. Differential diagnosis would include diabetic nephropathy. She has significant proteinuria most likely due to diabetic nephropathy. Nondiabetic causes seem unlikely based on serologies Baseline creatinine is around 1.4 to 1.6 Based on recent imaging she has no evidence of obstructive uropathy. s/p Mild hypokalemia in the setting of CKD. Hypertension blood pressure well controlled. Recommendation Keep on low-sodium diet. She should stay on low-potassium diet as well. Maintain blood pressure less than 130/80 Will benefit from weight loss Maintain A1C < 7% Continue to avoid nephrotoxic agents including NSAIDs. Goal is to slow the progression of renal disease Unable to use SGLT-2 inhibitor due to h/o DKA Keep Losartan 25 mg QD due to proteniruia in a setting of DM/Obesity and to optimize BP Watch Creatinine and Potassium Orders: Orders Complete Blood Count no Diff 3 Months N18.9 - Chronic kidney disease, unspecified Basic Metabolic Panel 3 Months N18.9 - Chronic kidney disease, unspecified Coding Level of Care Code Est Pt Level 4 (90337) Diagnoses HTN (hypertension) I10 Hyperkalemia E87.5 CKD (chronic kidney disease) N18.9 Obesity E66.9 Anemia D64.9 Anemia type: iron deficiency
[2025-09-09 15:52] VITALS: BP 120/60
--- OUTSIDE RECORDS SUMMARY | 2025-09-10 00:19 | XMS_ITS | Encounter Summary ---
Author Organization [facility] Address [address] [place] [address] Care Team Providers Care Implementation Technician Name Role Phone Ranjana Villarreal PA-C Primary Care Provi erika Encounter Details Date Type Department Care Team (Late st Contact Info) Description 12/25/2024 Scanned Document [facility] NEPHROLOGY SCAN Nephrology, Scan Social History Tobacco [...] 9:45 AM EST Appointment [facility] [address] [phone] Kemar Storey MD [address] [address] 09/18/2025 8:00 AM EST Telemedicine Clinical Support [facility] [place] [facility] 32 [facility] [address] [place] [phone] Meredith Waters, MARY 31 [facility] [address] [address] Reji Amos, DILIP 32 [place], [place] [id number] 09/29/2025 7:30 AM EST Appointment [facility] [address] [phone] Kemar Storey MD [address] [address] 10/06/2025 7:40 AM EST Office Visit [address] [phone] Maria D Hinojosa, MARCOS [address] [place] [address] 11/03/2025 7:30 AM EST Office Visit [facility] [address] [phone] Milan Rodriguez APRN [address] [address] 11/24/2025 8:00 AM EST Office Visit [address] [phone] Ranjana Villarreal PA-C [address] [place] [address] documented as of this encounter Visit Diagnoses Not on filedocumented in this encounter Care Teams Implementation Technician Relationship Specialty Start Date End Date Ranjana Villarreal PA-C [address] [place] [address] PCP - General Internal Medicine 11/03/24 documented as of this encounter
--- OUTSIDE RECORDS SUMMARY | 2025-09-10 00:19 | XMS_ITS | Encounter Summary ---
Author Organization [facility] Address [address] [place] [address] Care Team Providers Care Rib Matcher And Fitter Name Role Phone Ranjana Villarreal PA-C Primary Care Provi erika Encounter Details Date Type Department Care Team ([facility] st Contact Info) Description 05/07/2025 Scanned Document [facility] [address] [phone] Jared Rousseau MD [address] [place] [address] Social History Tobacco Use Types Packs/Day Years [...] 9:45 AM EST Appointment [facility] [address] [phone] Kemar Storey MD [address] [facility] [address] [place], [place] [address] 09/18/2025 8:00 AM EST Telemedicine Clinical Support [facility] [place] [facility] 32 [facility] [address] [place] [phone] Meredith Waters NP 31 [facility] [address] [address] Reji Amos, DILIP 32 [place] [address] 09/29/2025 7:30 AM EST Appointment [facility] [address] [phone] Kemar Storey MD [address] [address] 10/06/2025 7:40 AM EST Office Visit [facility] Medical [address] [phone] Maria D Hinojosa APRN [address] [place] [address] 11/03/2025 7:30 AM EST [facility] Visit [facility] [address] [phone] Milan Rodriguez, BREASTER [address] [facility] [address] [place] [address] 11/24/2025 8:00 AM EST Office Visit [facility] 100 [facility] 101 [place] [address] Ranjana Villarreal PA-C 100 [place] [address] documented as of this encounter Visit Diagnoses Not on filedocumented in this encounter Care Teams Rib Matcher And Fitter Relationship Specialty Start Date End Date Ranjana Villarreal PA-C [address] [place] [address] PCP - General Internal Medicine 11/03/24 documented as of this encounter
--- OUTSIDE RECORDS SUMMARY | 2025-09-10 00:19 | XMS_ITS | Encounter Summary ---
Author Organization [facility] Address [address] [place] [address] Care Team Providers Care Beer Merchant Name Role Phone Ranjana Villarreal PA-C Primary Care Provi erika Encounter Details Date Type Department Care Team (Late st Contact Info) Description 05/04/2025 Scanned Document [facility] [address] [place] [address] Nephrology, Scan Social History Tobacco Use Types [...] 09/15/2025 9:45 AM EST [facility]ointment [facility] [address] [phone] Kemar Storey MD 499 [facility] [address] [place] [address] 09/18/2025 8:00 AM EST Telemedicine Clinical Support [facility] [place] [facility] 32 [facility] [address] [place] [phone] Meredith Waters NP 31 [facility] [address] [address] Reji Amos, DILIP 32 [place] [address] 09/29/2025 7:30 AM EST Appointment [facility] [address] [phone] Kemar Storey MD [address] [address] 10/06/2025 7:40 AM EST Office Visit [facility] Medical [address] [phone] Maria D Hinojosa, HULL INSPECTOR [address] [place] [address] 11/03/2025 7:30 AM EST Office Visit [facility] [address] [phone] Milan Rodriguez APRN [address] [phone] 11/24/2025 8:00 AM EST Office Visit [facility] [address] [place] [phone] Ranjana Villarreal PA-C [address] [place] [place] [address] documented as of this encounter Visit Diagnoses Not on filedocumented in this encounter Care Teams Beer Merchant Relationship Specialty Start Date End Date Ranjana Villarreal PA-C [address] [place] [address] PCP - General Internal Medicine 11/03/24 documented as of this encounter
--- OUTSIDE RECORDS SUMMARY | 2025-09-10 00:20 | XMS_ITS | Encounter Summary ---
Author Organization [facility] Address [address] [place] [address] Care Team Providers Care Parimutuel Ticket Cashier Name Role Phone Ranjana Villarreal PA-C Primary Care Provi erika Encounter Details Date Type Department Care Team (Late st Contact Info) Description 06/19/2025 Scanned Document [facility] [place] [address] [facility] [address] [place] [phone] Maria D Hinojosa, OUTPATIENT RECEPTIONIST [address] [place] [address] Social History Tobacco Use Types Packs/Day Years [...] 9:45 AM EST Appointment [facility] [address] [phone] Kemar Storey MD 499 [facility] [address] [place], [place] [address] 09/18/2025 8:00 AM EST Telemedicine Clinical Support [facility] [place] [facility] 32 [facility] [address] [place] [phone] Meredith Waters NP 31 [facility] [address] [address] Reji Amos, DILIP 32 [place] [address] 09/29/2025 7:30 AM EST Appointment [facility] [address] [phone] Kemar Storey MD [address] [address] 10/06/2025 7:40 AM EST Office Visit [facility] [address] [phone] Maria D Hinojosa, OUTPATIENT RECEPTIONIST [address] [place] [address] 11/03/2025 7:30 AM EST Office Visit [facility] [address] [phone] Milan Rodriguez, OUTPATIENT RECEPTIONIST 499 [facility] [address] [place] [address] 11/24/2025 8:00 AM EST Office Visit [facility] 100 [facility] [address] [place] [phone] Ranjana Villarreal PA-C 100 [place] [address] documented as of this encounter Visit Diagnoses Not on filedocumented in this encounter Care Teams Parimutuel Ticket Cashier Relationship Specialty Start Date End Date Ranjana Villarreal PA-C 100 [place] [address] PCP - General Internal Medicine 11/03/24 documented as of this encounter
--- OUTSIDE RECORDS SUMMARY | 2025-09-10 00:20 | XMS_ITS | Encounter Summary ---
Author Organization [facility] Address [address] [place] [address] Care Team Providers Care Roll Forming Machine Set Up Operator Name Role Phone Ranjana Villarreal PA-C Primary Care Provi erika Encounter Details Date Type Department Care Team (Late st Contact Info) Description 08/06/2025 Scanned Document [facility] [address] [place] [phone] Kemar Storey MD [address] [place] [address] Social History Tobacco Use Types Packs/Day Years [...] and Family Not on file 07/27/2025 Attends [employer] Not on file 07/27 Active Member [...] time in the past 12 m [facility], were you homeless or living in a senior care (including now)? No 07/27/2025 [facility] Utilities Answer Date Recorded In the past 12 months has th e [employer], gas, oil, or water company threatened to [...] 09/15/2025 9:45 AM EST Appointment [facility] [address] [phone] Kemar Storey MD 499 [facility] [address] [place] [address] 09/18/2025 8:00 AM EST Telemedicine Clinical Support [facility] [place] [facility] 32 [facility] [address] [place] [phone] Meredith Waters NP 31 [facility] [address] [address] Reji Amos, DILIP 32 [place] [address] 09/29/2025 7:30 AM EST Appointment [facility] [address] [phone] Kemar Storey MD [address] [facility] [address] [place] [address] 10/06/2025 7:40 AM EST Office Visit [facility] [address] [phone] Maria D Hinojosa, ESTABLISHMENT GUIDE [address] [place] [address] 11/03/2025 7:30 AM EST Office Visit [facility] [address] [phone] Milan Rodriguez, ESTABLISHMENT GUIDE 499 [facility] [address] [place] [address] 11/24/2025 8:00 AM EST Office Visit [facility] 100 [facility] [address] [place] [address] Ranjana Villarreal PA-C 100 [place] [address] documented as of this encounter Visit Diagnoses Not on filedocumented in this encounter Care Teams Roll Forming Machine Set Up Operator Relationship Specialty Start Date End Date Ranjana Villarreal PA-C [address] [place] [address] PCP - General Internal Medicine 11/03/24 documented as of this encounter
--- OUTSIDE RECORDS SUMMARY | 2025-09-10 00:20 | XMS_ITS | Encounter Summary ---
Author Organization [facility] Address [address] [place] [address] Care Team Providers Care Division Head Name Role Phone Ranjana Villarreal PA-C Primary Care Provi erika Encounter Details Date Type Department Care Team (Late st Contact Info) Description 08/25/2025 Scanned Document [facility] [address] [place] [phone] Kemar Storey MD [address] [place] [address] Social History Tobacco Use Types Packs/Day Years [...] any time in the past 12 m [facility], were you homeless or living in a chcf (including now)? No 07/27/2025 [facility] Utilities Answer Date Recorded In the past 12 months has th e [employer], gas, oil, or water company threatened to [...] 09/15/2025 9:45 AM EST Appointment [facility] [address] [address] Kemar Storey MD 499 [facility] [address] [place] [address] 09/18/2025 8:00 AM EST Telemedicine Clinical Support [facility] [place] [facility] 32 [facility] 1st [place] [phone] Meredith Waters NP 31 [facility] [address] [address] Reji Amos, DILIP 32 [place] [address] 09/29/2025 7:30 AM EST Appointment [facility] [address] [address] Kemar Storey MD 499 [facility] 300 [place] [address] 10/06/2025 7:40 AM EST Office Visit [facility] Medical [address] [phone] Maria D Hinojosa, SENIOR BIOINFORMATICS SCIENTIST [address] [place] [address] 11/03/2025 7:30 AM EST Office [facility] [address] [phone] Milan Rodriguez, SENIOR BIOINFORMATICS SCIENTIST [address] [facility] [address] [place] [address] 11/24/2025 8:00 AM EST Office Visit [facility] 100 [facility] [address] [place] [address] Ranjana Villarreal PA-C [address] [place] [address] documented as of this encounter Visit Diagnoses Not on filedocumented in this encounter Care Teams Division Head Relationship Specialty Start Date End Date Ranjana Villarreal PA-C [address] [place] [address] PCP - General Internal Medicine 11/03/24 documented as of this encounter
--- OUTSIDE RECORDS SUMMARY | 2025-09-10 00:20 | XMS_ITS | Clinical Summary ---
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 OTHER SURGICAL HISTORY 2004 PROCEDURE: HISTORICAL [...] ED evaluation 06/29/18, referred to Dr. Ewing, [facility] wound care Managed with IV abx via PICC line through ID, eval with Dr. Harris for skin graft 08/2018 Anxiety 09/17/2018 DX:Anxiety; COMM ENT: Panic attacks Diabetic neuropathy ([facility] V24, [facility] V28) 09/26/2018 DX:Diabetic neuropathy ([facility]) Umbilical hernia 09/26/2018 DX:Umbilical he rnia Type 2 diabetes mellitus wit h neurological manifestations ([facility] V24, [facility] V28) 09/26/2018 DX:Type 2 diabetes mellitus with neurological manifestations ([facility]); COMMENT: Endo consult with Dr. Garces Type 2 diabetes mellitus wit h renal manifestations ([facility] V24, [facility] V28) 01/15/2019 DX:Type 2 diabetes mellitus with renal manifestations ([facility]) Chronic gastric ulcer DX:Chronic gastric ulcer Depression DX:Depression ALIYAH on CPAP 01/15/2019 DX:ALIYAH on CPAP GERD (gastroesophageal reflux disease) 01/15/2019 DX:GERD (gastroesophageal reflux disease) Type 2 diabetes mellitus wit h vascular disease ([facility] V24, [facility] V28) 10/14/2012 DX:Type 2 diabetes mellitus with vascular disease ([facility]) IBS (irritable bowel syndrome) 01/15/2019 D X:IBS (irritable bowel syndrome) Carpal tunnel syndrome of left wrist 01/15/2019 DX:Carpal tunnel syndrome of left wrist Amos's esophagus 03/23/2022 DX:Amos's esophagus [place] grade A esophagitis 03/23/2022 DX:[place] grade A esophagitis Diabetes mellitus ([facility] V 24, [facility] V28) DX:Diabetes mellitus ([facility]) Hypertension DX:Hypertension Hypercholesterolemia DX:Hypercho lesterolemia Anxiety DX:Anxiety GERD (gastroesophageal reflux disease) DX:GERD (gastroesophageal reflux disease) Family History Medical History Relation Name Comments Other: Graves Disease Brother Heart failure Maternal Grandfather Stroke Other cancer Maternal Grandmother Liver Breast cancer Mother Heart failure Paternal Grandfather ID, Hy pertension Other cancer Paternal Grandmother Kidney [...] PM EST Appointment [facility] [address] [phone] Health Maintenance Due Date Last [...] Signed Date: 08/05/2024 08:54 ET Workstation ID: [id number] Transcribed By: Self Edit Transcribed Date: 08/05/2024 08:44 ET Narrative 08/05/2024 8:54 AM EST EXAM: SCREENING MAMMOGRAPHY, BILATERAL HISTORY: SCREENING. Mother diagnosed with breast cancer age 56. COMPARISON: 03/09/2023, 12/20/2021, 09/10/2020 TECHNIQUE: Synthesized CC and MLO projections of each breast. Tomosynthesis of each breast in the CC and MLO projections. ADDITIONAL IMAGING: None Computer-aided detection was employed with the [employer] Player AI 3-D. TISSUE DENSITY: There are scattered [...] None Computer-aided detection was employed with the [employer] Player AI 3-D. TISSUE DENSITY: There are scattered [...] Signed Date: 08/05/2024 08:54 ET Workstation ID: [id number] Transcribed By: Self Edit Transcribed Date: 08/05/2024 08:44 ET us Self Referral Sppl IMG BI PROCEDURES Final Resul t from Last 3 Months or Most Recently Relevant to Health Maintenance Insurance ([facility]) Care Teams Water Filtration Technician Relationship Specialty Start Date End Date Joel Alegria NP [address] [place], [place] PCP - General Family Medicine 08/01/24
--- OUTSIDE RECORDS SUMMARY | 2025-09-10 00:20 | XMS_ITS | Encounter Summary ---
Author Organization [facility] Address [address] [place] [address] Care Team Providers Care Retanner Name Role Phone Ranjana Villarreal PA-C Primary Care Provi erika Encounter Details Date Type Department Care Team (Late st Contact Info) Description 05/15/2025 Scanned Document [facility] [address] [place] [address] Cardiology, Scan Social History Tobacco Use Types [...] 09/15/2025 9:45 AM EST [facility]ointment [facility] [address] [phone] Kemar Storey MD 499 [facility] [address] [place] [address] 09/18/2025 8:00 AM EST Telemedicine Clinical Support [facility] [place] [facility] 32 [facility] 1st [place] [phone] Meredith Waters NP 31 [facility] [address] [address] Reji Amos, DILIP 32 [place] [address] 09/29/2025 7:30 AM EST Appointment [facility] [address] [address] Kemar Storey MD [address] [address] 10/06/2025 7:40 AM EST Office Visit [facility] [address] [phone] Maria D Hinojosa, INSTALLER APPRENTICE [address] [place] [address] 11/03/2025 7:30 AM EST Office Visit [facility] [address] [phone] Milan Rodriguez APRN 499 [facility] [address] [place] [address] 11/24/2025 8:00 AM EST Office Visit [facility] [place] [address] [place] [address] Ranjana Villarreal PA-C [address] [facility] [place] [address] documented as of this encounter Visit Diagnoses Not on filedocumented in this encounter Care Teams Retanner Relationship Specialty Start Date End Date Ranjana Villarreal PA-C [address] [place] [address] PCP - General Internal Medicine 11/03/24 documented as of this encounter
--- OUTSIDE RECORDS SUMMARY | 2025-09-10 00:20 | XMS_ITS | Encounter Summary ---
Author Organization [facility] Address [address] [place] [address] Care Team Providers Care Embroiderer Name Role Phone Ranjana Villarreal PA-C Primary Care Provi erika Encounter Details Date Type Department Care Team (Late st Contact Info) Description 04/01/2025 Scanned Document [address] [place] [address] Primary Care, Scan Social History [...] 9:45 AM EST Appointment [facility] [address] [phone] Kemar Storey MD [address] [facility] [address] [place] [address] 09/18/2025 8:00 AM EST Telemedicine Clinical Support [facility] [place] [facility] [address] [place] [address] [address] [place] [phone] Meredith Waters NP 31 [facility] 204[address] [address] [place] [address] 09/29/2025 7:30 AM EST Appointment [facility] [address] [phone] Kemar Storey MD [address] [address] 10/06/2025 7:40 AM EST Office Visit [facility] 100 [place] [address] Maria D Hinojosa, SALES CLERK SUPERVISOR [address] [place] [address] 11/03/2025 7:30 AM EST Office Visit [facility] [address] [phone] Milan Rodriguez APRN [address] [address] 11/24/2025 8:00 AM EST Office Visit [facility] [address] [place] [address] Ranjana Villarreal PA-C [address] [place] [address] documented as of this encounter Visit Diagnoses Not on filedocumented in this encounter Care Teams Embroiderer Relationship Specialty Start Date End Date Ranjana Villarreal PA-C [address] [place] [address] PCP - General Internal Medicine 11/03/24 documented as of this encounter
--- OUTSIDE RECORDS SUMMARY | 2025-09-10 00:20 | XMS_ITS | Encounter Summary ---
Author Organization [facility] Address [address] [place] [address] Care Team Providers Care Retort Kiln Burner Name Role Phone Ranjana Villarreal PA-C Primary Care Provi erika Encounter Details Date Type Department Care Team (Late st Contact Info) Description 06/19/2025 Scanned Document [facility] [place] 704 [facility] [address] [place] [phone] Maria D Hinojosa, SANDAL PARTS ASSEMBLER [address] [place] [address] Social History Tobacco Use Types Packs/Day Years [...] AM EST Appointment [facility] [address] [address] Kemar Storey MD 499 [facility] [address] [place], [place] [address] 09/18/2025 8:00 AM EST Telemedicine Clinical Support [facility] [place] [facility] 32 [facility] 1st [place] [address] Meredith Waters NP 31 [facility] [address] [address] Reji Amos, DILIP 32 [place] [address] 09/29/2025 7:30 AM EST Appointment [facility] [address] [address] Kemar Storey MD [address] [address] 10/06/2025 7:40 AM EST Office Visit [facility] [address] [phone] Maria D Hinojosa, SANDAL PARTS ASSEMBLER [address] [place] [address] 11/03/2025 7:30 AM EST Office Visit [facility] [address] [phone] Milan Rodriguez, SANDAL PARTS ASSEMBLER 499 [facility] [address] [place] [address] 11/24/2025 8:00 AM EST Office Visit [facility] 100 [facility] [address] [place] [address] Ranjana Villarreal PA-C 100 [place] [address] documented as of this encounter Visit Diagnoses Not on filedocumented in this encounter Care Teams Retort Kiln Burner Relationship Specialty Start Date End Date Ranjana Villarreal PA-C [address] [place] [address] PCP - General Internal Medicine 11/03/24 documented as of this encounter
--- OUTSIDE RECORDS SUMMARY | 2025-09-10 00:20 | XMS_ITS | Encounter Summary ---
Author Organization [facility] Address [address] [place] [address] Care Team Providers Care Supervisor Frame Assembly Name Role Phone Ranjana Villarreal PA-C Primary Care Provi erika Encounter Details Date Type Department Care Team (Late st Contact Info) Description 07/20/2025 Scanned Document [facility] [place] at [address] [address] Orthopedic Surgery, Scan Social History [...] 9:45 AM EST Appointment [facility] [address] [phone] Kemar Storey MD [address] [address] 09/18/2025 8:00 AM EST Telemedicine Clinical Support [facility] [place] [facility] Services 32 [facility] 1st [place] [address] Meredith Waters NP 31 [facility] 204[address] [address] [place] [address] 09/29/2025 7:30 AM EST Appointment [facility] [address] [address] Kemar Storey MD [address] [address] 10/06/2025 7:40 AM EST Office Visit [facility] [address] [address] Maria D Hinojosa, PROFESSOR OF ENVIRONMENTAL STUDIES [address] [place] [address] 11/03/2025 7:30 AM EST Office Visit [facility] [address] [phone] Milan Rodriguez APRN [address] [phone] 11/24/2025 8:00 AM EST Office Visit [facility] [address] [place] [address] Ranjana Villarreal PA-C [address] [facility] [place] [address] documented as of this encounter Visit Diagnoses Not on filedocumented in this encounter Care Teams Supervisor Frame Assembly Relationship Specialty Start Date End Date Ranjana Villarreal PA-C [address] [facility] [place] [address] PCP - General Internal Medicine 11/03/24 documented as of this encounter
--- OUTSIDE RECORDS SUMMARY | 2025-09-10 00:20 | XMS_ITS | Clinical Summary ---
Author Organization [facility] Address [address] [place] [address] Care Team Providers Care Wash Crew Person Name Role Phone Ranjana Villarreal PA-C Primary [...] Active Continuous Glucose Sensor (Dexcom G6 Sensor) [facility] USE 1 SENSOR EVERY 10 DAYS 06/25/20 24 Active Continuous Glucose Transmitter (Dexcom G6 Transmitter) [facility] 1 DEVICE BY DOES NOT [...] unspecified laterality Walker with seat & breaks [facility] [address] [place] [address] 1 each 04/08/20 25 Active hydroCHLOROthia zide [...] (07/28/2025 1:03 PM EDT): Patient scheduled to orange picker machine operator her home sleep study kit at the end of August. Dyspnea on exertion 07/28/2025 Assessment & Plan (07/28/2025 1:03 PM EDT): History of COVID in 2020 requiring a day ICU stay in hospital admission for sepsis, DKA, pneumonia. History of COVID in 2022-PA with acute respiratory failure with hypoxia and post COVID syndrome. Patient follows with pulmonary out of [facility]. Last seen Tober 2024. Managed on Breyna. Has an albuterol inhaler that she uses occasionally. Bronchiectasis without complication 07/28/2025 Assessment & Plan (07/28/2025 1:03 PM EDT): History of COVID in 2020 requiring a day ICU stay in hospital admission for sepsis, DKA, pneumonia. History of COVID in 2022-PA with acute respiratory failure with hypoxia and post COVID syndrome. Patient follows with pulmonary out of [facility]. Last seen Tober 2024. Managed on [...] EDT): Patient had endoscopy January 2025 with [facility]. Will be due again in 2027. [...] EDT): Patient had endoscopy January 2025 with [facility]. Will be due again in 2027. [...] Will check urine microalbumin -lab sent to [facility]. Monofilament intact on the right foot in [...] sleeve. Referral placed to Dr. Gong[facility] at [facility] per patient's request. Peripheral vascular [...] Will check urine microalbumin -lab sent to [facility]. Monofilament intact on the right foot in all regions. Diminished in the left foot on the 3rd and 5th toes and midfoot. Carotid artery plaque 01/08/2024 Carotid artery stenosis with out cerebral infarction, bilateral 01/08/2024 Assessment & Plan (07/28/2025 1:03 PM EDT): Found incidentally when patient was in [facility] ER with left-sided headaches/blurred vision. Workup [...] EDT): Patient had endoscopy January 2025 with [facility]. Will be due again in 2027. [...] 8:15 AM EST Office Visit [facility] [address] [facility] [address] [place] [address] Jared Rousseau MD Back pain, unspecified back location, unspecified back pain laterality, unspecified chronicity 09/02/2025 8:15 AM EST [facility] [address] [phone] Milan Rodriguez APRN Spondylosis of lumbosacral region without myelopathy or radiculopathy (Primary Dx) 08/26/2025 11:40 AM EST Procedure visit [facility] [address] [address] Donna White MD ALIYAH (obstructive sleep apnea) (Primary Dx); Snoring; Fatigue, unspecified type; Non-restorative sleep; Witnessed episode of apnea; Upper airway resistance syndrome; Frequent nocturnal awakening 08/25/2025 Scanned Document [facility] [address] [phone] Kemar Storey MD 08/25/2025 [facility] [address] [address] Kemar Storey MD 08/19/2025 8:00 AM EST Telemedicine Clinical Support [facility] [place] [facility] [address] [phone] Meredith Waters NP Barrett, Christopher, RD Type 2 diabetes mellitus without complication, with long-term current use of insulin (HCC) (Primary Dx); Morbid obesity (HCC) 08/12/2025 8:15 AM EST Office [facility] [address] [phone] Milan Rodriguez APRN Spondylosis of lumbosacral region without myelopathy or radiculopathy (Primary Dx) 08/06/2025 Scanned Document [facility] [address] [address] Kemar Storey MD 08/06/2025 [facility] of [address] [address] Kemar Storey MD 07/31/2025 Scanned Document [facility] [address] [place] [address] Urology, Scan 07/28/2025 8:30 AM EDT Office Visit [address] [address] Ranjana Villarreal PA-C Annual physical exam (Primary Dx); Type 2 diabetes mellitus with diabetic neuropathic arthropathy, with long-term current use of insulin ([facility]); Diabetic polyneuropathy associated with type 2 diabetes mellitus ([facility]); Diabetic retinopathy associated with type 2 diabetes mellitus, macular edema presence unspecified, unspecified laterality, unspecified retinopathy severity ([facility]); Dyslipidemia; Amos's esophagus without dysplasia; Gastroesophageal reflux disease without esophagitis; Esophageal dysphagia; Morbid obesity ([facility]); Recurrent major depressive disorder, in partial remission; Primary insomnia; Primary hypertension; Carotid artery stenosis without cerebral infarction, bilateral; Irritable bowel syndrome with both constipation and diarrhea; Charcot's arthropathy; Chronic kidney disease, stage IV (severe) ([facility]); Bronchiectasis without complication ([facility]); Dyspnea on exertion; Post-COVID syndrome; Coronary artery disease involving havasupai coronary artery of havasupai heart without angina pectoris; Snoring; Back pain, unspecified back location, unspecified back pain laterality, unspecified chronicity; Primary osteoarthritis involving multiple joints; Recurrent UTI; Essential tremor; Peripheral vascular disease; Other diabetic neurological complication associated with type 2 diabetes mellitus ([facility]); Occipital neuralgia of left side; Stage 3 chronic kidney disease, unspecified whether stage 3a or 3b CKD (HCC) 07/27/2025 2:00 PM EDT [facility] [address] [place] [address] Matti Lambert PA Strain of muscle(s) and tendon(s) of the rotator cuff of right shoulder, initial encounter (Primary Dx); Right shoulder pain, unspecified chronicity 07/21/2025 [facility] [address] [address] Kemar Storey MD 07/20/2025 4:53 PM EDT Hospital Encounter [facility] [address] [place] [phone] 07/20/2025 4:35 PM EDT Office Visit [facility] [place] [address] [facility] [phone] David Land MD Ashe, Alexander, PA Acute pain of right shoulder (Primary Dx); Injury of right rotator cuff, initial encounter 07/20/2025 Scanned Document [facility] [place] at [address] [phone] Orthopedic Surgery, Scan 07/17/2025 Scanned Document [facility] PULMONOLGY SCAN Pulmonary, Scan 07/13/2025 8:00 AM EDT Telemedicine Clinical Support [facility] Services [address] [place] [address] [address] [place] [phone] Meredith Waters NP Barrett, Christopher, RD Type 2 diabetes mellitus without complication, with long-term current use of insulin (HCC) (Primary Dx); Morbid obesity (HCC) 07/02/2025 8:45 AM EDT [facility] [address] [address] Jared Rousseau MD Hill, Brian, APRN Spondylosis of lumbosacral region without myelopathy or radiculopathy (Primary Dx) 06/19/2025 Scanned Document [facility] [address] [place] [address] Maria D Hinojosa APRN 06/19/2025 Scanned Document [facility] Pulmonary [place] [address] [place] [address] Maria D Hinojosa APRN 06/18/2025 11:20 AM EDT Consult [facility]monary [address] [phone] Bestman, Natesha A, STAFF DEVELOPMENT NURSE Snoring (Primary Dx); Fatigue, unspecified type; Non-restorative sleep; Witnessed episode of apnea; Upper airway resistance syndrome; Frequent nocturnal awakening 06/17/2025 Scanned Document [facility] NEPHROLOGY SCAN Nephrology, Scan 06/12/2025 12:30 PM EDT Treatment [facility] [address] [place] [address] Rubi Woo, PT Acute low back pain [...] and Family Not on file 07/27/2025 Attends [employer] Not on file 07/27 Active Member [...] any time in the past 12 m [facility], were you homeless or living in a [place] health care facility (including now)? No 07/27/2025 [facility] Utilities Answer Date Recorded In [...] 09/15/2025 9:45 AM EST Appointment [facility] [address] [phone] Kemar Storey MD [address] [facility] [address] [place], [place] [address] 09/18/2025 8:00 AM EST Telemedicine Clinical Support [facility] [place] [facility] [address] [place] [phone] Meredith Waters NP [address] [place] [address] [address] [address] Reji Amos, DILIP [address] [place] [address] 09/29/2025 7:30 AM EST Appointment [facility] [address] [phone] Kemar Storey MD [address] [facility] [address] [place] [address] 10/06/2025 7:40 AM EST Office [facility] [place] [address] [place] [address] Maria D Hinojosa, STAFF DEVELOPMENT NURSE [address] [place] [address] 11/03/2025 7:30 AM EST Office Visit [facility] [address] [place] [address] Milan Rodriguez, STAFF DEVELOPMENT NURSE [address] [facility] [address] [place], [place] [address] 11/24/2025 8:00 AM EST Office Visit [facility] [address] [facility] [address] [place] [phone] Ranjana Villarreal PA-C [address] [place], [place] [phone] Health Maintenance Due Date Last Done Comments [...] , 07/18/2018, Additional history exists COVID-19 Vaccine (5 - 2024-2 6 season) 2025 06/13/2024, 08/05/2021, 12/29/2020, Additional history exists Lipid Panel 01/29/2026 01/29/2025 Creatinine with GFR 04/01/2026 04/01/2025, 04/01/2025, 01/29/2025, Additional history exists Foot Exam 07/28/2026 07/28/2025, 07/02, 07/28/2025, Additional history exists Physical 07/28/2026 07/28/2025 Medical Devices Implanted Type Area Slot Tag Inserter Device Identifier Shelf Expiration Date Model / Serial / Lot Nail/Dayron Nail/Dayron Foot Description:Charcot's and pl ate Procedures Procedure Name Priority Date/Time Associated Diagnosis Comments LAB RESULT Routine 09/08/2025 1:38 PM EST GENERAL SLEEP STUDY Routine 08/27/2025 1 :45 [...] to Health Maintenance Results * LAB RESULT (09/08/2025 1:38 PM EST) us Scan Primary Care HX AMB PROCEDURES Edited Resul t - Final * General Sleep Study (08/27/2025 1:45 PM EST) Anatomical Region Laterality Modality Other Narrative 08/27/2025 1:45 PM EST Donna White MD 09/05/2025 1:47 PM Division of Pulmonary, Critical Care, and Sleep Medicine [address] [place] [address] Patient Name: Osman Alcantar Recording Date: 08/26/2025 Gender: female Height: 5'5 Date of : 1965 Weight: 288, lbs Referring Physician: Maria D Hinojosa APRN Neck Circumference: na Interpreting Physician: Donna Whtie MD Body Mass Index: 47.9 Rydal Sleepiness Scale: 14 HOME SLEEP APNEA TEST REPORT ICD-10 CODE: G47.33 TYPE OF SLEEP STUDY DONE: [X] Sleep Study Unattended (CPT CODE 21885) INDICATION: Osman Alcantar has been referred for [...] DEFINITIONS: The study was performed using the [employer] ApneaLink Air Type III Home Sleep Apnea Test (HSAT) device which provides high-quality signals to provide accurate conclusions. The channel recorded include: Airflow acquired with a nasal pressure sensor. Oxygen saturation (SpO2) was monitored using a pulse oximeter. Thoracic respiratory effort was recorded via proprietary ResMed technology using a simple pneumatic technology which [...] for complete manual scoring by a score refrigeration technician (MANNIE). Sleep study was scored manually [...] Donna White MD 09/05/2025 1:45 PM Diplomate, [place] Board of Sleep Medicine Diplomate, [place] Board of Internal Medicine (Pulmonary, Critical Care) Migrant Leader, [facility] Procedure Note Donna White MD - 09/05/2025 1:45 PM EST Images from the original note were not included. Division of Pulmonary, Critical Care, and Sleep Medicine [address] [place] [address] Patient Name: Osman Alcantar Recording Date: 08/26/2025 Gender: female Height: 5'5 Date of : 1965 Weight: 288, lbs Referring Physician: Maria D Hinojosa APRN Neck Circumference: na Interpreting Physician: Donna White MD Body Mass Index: 47.9 Rydal Sleepiness Scale: 14 HOME SLEEP APNEA TEST REPORT ICD-10 CODE: G47.33 TYPE OF SLEEP STUDY DONE: [X] Sleep Study Unattended (CPT CODE 99815) INDICATION: Osman Alcantar has been referred for [...] DEFINITIONS: The study was performed using the [employer] ApneaLink Air Type III Home SleepApnea Test [...] followedfor complete manual scoring by a score refrigeration technician (MANNIE). Sleep studywas scored manually using the AASM manual for Scoring of Sleep andAssociated Events. Rules, Terminology, and Technical Specifications version 3.0. The VIII.1.B definition of hypopneas was used (>= 4%desaturation from pre-even baseline). The data was reviewed by [facility]-certified sleep physician and the study was found [...] Donna White MD 09/05/2025 1:45 PM Diplomate, [employer] Board of Sleep Medicine Diplomate, [place] Board of Internal Medicine (Pulmonary, CriticalCare) Migrant Leader, [facility] us Maria D Hinojosa [facility] ORDERABLES E dited Result - [...] Stephen Muhammad MD 08/19/2025 10:05 AM EST RP Thank you for referring your patient to us, Stephen Muhammad MD [phone] (Electronically Signed - 08/19/2025 10:05) Narrative 08/19/2025 [...] Muhammad MD 08/19/2025 10:05 AM EST RPWorkstation: [id number] Thank you for referring your patient to us, Stephen Muhammad MD [phone] (Electronically Signed - 08/19/2025 10:05) us Matti Gracerachel [facility] IMG MRI ORDERABLES Final Result * XR Shoulder 2+ views-Right (07/20/2025 4:59 PM EDT) Anatomical Region Laterality Modality Shoulder Right Computed Radiogr aphy 07/20/2025 5:04 PM EDT Impressions 07/20/2025 5:05 PM EDT 1. No fracture or dislocation. Narrative 07/20/2025 5:05 PM EDT EXAM: XR SHOULDER 2+ VIEWS-RIGHT on 07/20/2025 4:53 PM CLINICAL HISTORY: OSMAN ACLANTAR is a 60 years old patient with [...] [facility] ORDERAB LES Final Result * Amb Referral to Physical Medicine Rehab (07/02/2025 1:06 PM EDT) Jared Rousseau MD OUTPATIENT REFERRAL ORDERABLES F inal Result * (ABNORMAL) Basic metabolic panel (04/01/2025 11:46 AM EDT) Pathologist [facility] Glucose 399(H) 65 - 99 mg/dL [facility] Comment: Verified by repeat analysis. Fasting reference interval For someone without known diabetes, a glucose value >125 mg/dL indicates that they may have diabetes and this should be confirmed with a follow-up test. Blood Urea Nitrogen (BUN) 39(H) 7 - 25 mg/dL [facility] Creatinine 2.59(H) 0.50 - 1.03 mg/dL [facility] Creatinine w/ eGFR 21(L) > OR = 60 mL/min/1.7 3m2 [facility] BUN/Creatinine Ratio 15 6 - 22 (calc) [facility] Sodium 128(L) 135 - 146 mmol/L [facility] Potassium 5.1 3.5 - 5.3 mmol/L [facility] Chloride 90(L) 98 - 110 mmol/L [facility] CO2 29 20 - 32 mmol/L [facility] Calcium 9.6 8.6 - 10.4 mg/dL [facility] Blood Blood specimen / Unknown 04/01/2025 11:46 AM EDT 04/01/2025 11:46 AM EDT Ranjana Villarreal PA-C LAB BLOOD ORDERABLE S Final Result [facility] [address] [place] [phone] * (ABNORMAL) Lipid panel with nonHDL (01/29/2025 1:22 PM EDT) Cholesterol, Total 124 <200 mg/dL [facility] Cholesterol, HDL 47(L) > OR = 50 mg/dL [facility] Triglycerides 153(H) <150 mg/dL [facility] LDL Cholesterol 53 mg/dL (calc) [facility] Comment: Reference range: <100 Desirable range <100 mg/dL for primary prevention; <70 mg/dL for patients with CHD or diabetic patients with > or = 2 CHD risk factors. LDL-C is now calculated using the Kush calculation, which is a validated novel method providing better accuracy than the Friedewald equation in the estimation of LDL-C. Sudarshan SS et al. BRITTNEE. 2013;310(19): 1935-3483 (http://education.[employer]/faq/ZME943) Cholesterol/HDL Ratio 2.6 <5.0 (calc) [facility] Non HDL Chol. (LDL+VLDL) 77 <130 mg/dL (calc) [facility] Comment: For patients with diabetes plus 1 major ASCVD risk factor, treating to a non-HDL-C goal of <100 mg/dL (LDL-C of <70 mg/dL) is considered a therapeutic option. Blood Blood specimen / Unknown 01/29/2025 1:22 PM EDT 01/29/2025 1:25 PM EDT Narrative [facility] - 01/30/2025 10:28 AM EDT FASTING:YES FASTING: YES us Ranjana Villarreal PA-C LAB BLOOD ORDERABLE S Final Result [facility] [address] [place] [phone] * (ABNORMAL) Hemoglobin A1c with Estimated Average Glucose (01/07/2024 4:32 AM EDT) Hemoglobin A1C 7.3(H) <5.7 % 01/07/2024 5:20 AM EDT [facility] Comment: A1c% Interpretation 5.7 - 6.0 Increase risk of diabetes 6.1 - 6.4 Higher risk of diabetes > or = 6.5 Consistent with diabetes Diabetes Care, 33(Supp 1):S1-S61, 2010 Estimated Average Glucose 163 mg/dL 01/07/2024 5:20 AM EDT [facility] Blood specimen (specimen) Blood specimen / Unknown 01/07/2024 4:32 AM EDT 01/07/2024 4:37 AM EDT us Nas Garcia MD LAB BLOOD ORDERABLES Final Resul t [address] [address], [address] [address] from Last 3 Months or Most Recently Relevant to Health Maintenance Insurance [employer] OUT OF [facility] [employer] OUT OF [facility] BLUE CROSS OUT [facility] BLUE CROSS OUT [facility] Advance Directives * Full Code (Latest Code Status on File) Date Activated Date Inactivated Comments 01/06/2024 5:40 PM 02/27/2025 8:16 AM Question Answer Comments Decision Thoroughly Discussed with: Patient * Full Code Date Activated Date Inactivated Comments 08/30/2023 12:10 PM 01/06/2024 2:18 PM Full Code Care Teams Wash Crew Person Relationship Specialty Start Date End Date Ranjana Villarreal PA-C [address] [place] [address] PCP - General Internal Medicine 11/03/24
--- OUTSIDE RECORDS SUMMARY | 2025-09-10 00:20 | XMS_ITS | Encounter Summary ---
Author Organization [facility] Address [address] [place] [address] Care Team Providers Care Communication Electronic Technician Name Role Phone Ranjana Villarreal PA-C Primary Care Provi erika Encounter Details Date Type Department Care Team (Late st Contact Info) Description 11/20/2024 Scanned Document [address] [place] [address] Primary Care, Scan Social History [...] 9:45 AM EST Appointment [facility] [address] [phone] Kemar Storey MD [address] [facility] [address] [place] [address] 09/18/2025 8:00 AM EST Telemedicine Clinical Support [facility] [place] [facility] 32 [facility] [address] [place] [phone] Meredith Waters NP 31 [facility] [address] [address] Reji Amos, DILIP 32 [place] [address] 09/29/2025 7:30 AM EST Appointment [facility] [address] [address] Kemar Storey MD [address] [address] 10/06/2025 7:40 AM EST Office Visit [facility] [address] [phone] Maria D Hinojosa, LEAKAGE TESTER [address] [place] [address] 11/03/2025 7:30 AM EST Office Visit [facility] [address] [phone] Milan Rodriguez APRN [address] [address] 11/24/2025 8:00 AM EST Office Visit [facility] [address] [place] [phone] Ranjana Villarreal PA-C [address] [place] [address] documented as of this encounter Visit Diagnoses Not on filedocumented in this encounter Care Teams Communication Electronic Technician Relationship Specialty Start Date End Date Ranjana Villarreal PA-C [address] [place] [address] PCP - General Internal Medicine 11/03/24 documented as of this encounter
--- OUTSIDE RECORDS SUMMARY | 2025-09-10 00:20 | XMS_ITS | Encounter Summary ---
Author Organization [facility] Address [address] [place] [address] Care Team Providers Care Staffing Coordinator Name Role Phone Ranjana Villarreal PA-C Primary Care Provi erika Encounter Details Date Type Department Care Team (Late st Contact Info) Description 06/17/2025 Scanned Document [facility] NEPHROLOGY SCAN Nephrology, Scan Social [...] 9:45 AM EST Appointment [facility] [address] [phone] Kemar Storey MD [address] [address] 09/18/2025 8:00 AM EST Telemedicine Clinical Support [facility] [place] [facility] 32 [facility] [address] [place] [phone] Meredith Waters NP 31 [facility] [address] [address] Reji Amos, DILIP 32 [place], [place] [phone] 09/29/2025 7:30 AM EST Appointment [facility] [address] [address] Kemar Storey MD [address] [phone] 10/06/2025 7:40 AM EST Office Visit [address] [phone] Maria D Hinojosa, MARRIAGE COUNSELOR MINISTER [address] [place] [address] 11/03/2025 7:30 AM EST Office Visit [facility] [address] [phone] Milan Rodriguez APRN [address] [address] 11/24/2025 8:00 AM EST Office Visit [place] [address] [facility] [address] [place] [address] Ranjana Villarreal PA-C [address] [place] [address] documented as of this encounter Visit Diagnoses Not on filedocumented in this encounter Care Teams Staffing Coordinator Relationship Specialty Start Date End Date Ranjana Villarreal PA-C [address] [place] [address] PCP - General Internal Medicine 11/03/24 documented as of this encounter
--- OUTSIDE RECORDS SUMMARY | 2025-09-10 00:20 | XMS_ITS | Encounter Summary ---
Author Organization [facility]ly [facility] Address [address] [place] [address] Care Team Providers Care Admission Discharge Rn Name Role Phone Ranjana Villarreal PA-C Primary Care Provi erika Encounter Details Date Type Department Care Team (Late st Contact Info) Description 04/07/2025 Scanned Document [facility] [address] [place] [address] Nephrology, Scan Social History Tobacco Use Types [...] 09/15/2025 9:45 AM EST [facility]ointment [facility] [address] [address] Kemar Storey MD 499 [facility] [address] [place] [address] 09/18/2025 8:00 AM EST Telemedicine Clinical Support [facility] [place] [facility] 32 [facility] 1st [place] [phone] Meredith Waters NP 31 [facility] [address] [address] Reji Amos, DILIP 32 [place] [address] 09/29/2025 7:30 AM EST Appointment [facility] [address] [address] Kemar Storey MD [address] [address] 10/06/2025 7:40 AM EST Office Visit [facility] Medical [address] [phone] Maria D Hinojosa, KILN DOOR REPAIRER 669 [place] [address] 11/03/2025 7:30 AM EST Office Visit [facility] [address] [phone] Milan Rodriguez APRN [address] 8[address] 11/24/2025 8:00 AM EST Office Visit [facility] [address] [place] [address] Ranjana Villarreal PA-C [address] [place] [address] documented as of this encounter Visit Diagnoses Not on filedocumented in this encounter Care Teams Admission Discharge Rn Relationship Specialty Start Date End Date Ranjana Villarreal PA-C [address] [place] [address] PCP - General Internal Medicine 11/03/24 documented as of this encounter
--- OUTSIDE RECORDS SUMMARY | 2025-09-10 00:20 | XMS_ITS | Encounter Summary ---
Author Organization [facility] Address [address] [place] [address] Care Team Providers Care Mid Level Game Designer Name Role Phone Ranjana Villarreal PA-C Primary Care Provi reika Encounter Details Date Type Department Care Team (Late st Contact Info) Description 07/17/2025 Scanned Document [facility] PULMONOLGY SCAN Pulmonary, Scan Social History [...] 9:45 AM EST Appointment [facility] [address] [phone] Kemar Storey MD [address] [address] 09/18/2025 8:00 AM EST Telemedicine Clinical Support [facility] 32 [facility] 1st [place] [phone] Meredith Waters NP 31 [facility] [address] [address] Reji Amos, DILIP 32 [place], [place] [phone] 09/29/2025 7:30 AM EST Appointment [facility] [address] [address] Kemar Storey MD [address] 9[address] 10/06/2025 7:40 AM EST Office Visit [address] [phone] Maria D Hinojosa, DAIRY FEED SALES CONSULTANT 699 [place] [address] 11/03/2025 7:30 AM EST Office Visit [facility] [address] [phone] Milan Rodriguez APRN [address] [address] 11/24/2025 8:00 AM EST Office Visit [facility] 100 [facility] [address] [place] [address] Ranjana Villarreal PA-C 100 [place] [address] documented as of this encounter Visit Diagnoses Not on filedocumented in this encounter Care Teams Mid Level Game Designer Relationship Specialty Start Date End Date Ranjana Villarreal PA-C [address] [place] [address] PCP - General Internal Medicine 11/03/24 documented as of this encounter
--- OUTSIDE RECORDS SUMMARY | 2025-09-10 00:20 | XMS_ITS | Encounter Summary ---
Author Organization [facility] Address [address] [place] [address] Care Team Providers Care Bag Filler Name Role Phone Ranjana Villarreal PA-C Primary Care Provi erika Encounter Details Date Type Department Care Team (Late st Contact Info) Description 06/05/2025 Scanned Document [facility] 12[address] [place] [address] Neurology, Scan Social History Tobacco [...] 9:45 AM EST Appointment [facility] [address] [address] Kemar Storey MD [address] [phone] 09/18/2025 8:00 AM EST Telemedicine Clinical Support [facility] [address] [place] [phone] Meredith Waters NP 31 [facility] 204[place] [address] [place] [address] 09/29/2025 7:30 AM EST Appointment [facility] [address] [address] Kemar Storey MD [address] [address] 10/06/2025 7:40 AM EST Office Visit [facility] [address] [place] [address] Maria D Hinojosa, BROADCAST MAINTENANCE TECHNICIAN 9 [place] [address] 11/03/2025 7:30 AM EST Office Visit [facility] [address] [phone] Milan Rodriguez APRN [address] [address] 11/24/2025 8:00 AM EST Office Visit [facility] [address] [place] [phone] Ranjana Villarreal PA-C [address] [place] [address] documented as of this encounter Visit Diagnoses Not on filedocumented in this encounter Care Teams Bag Filler Relationship Specialty Start Date End Date Ranjana Villarreal PA-C [address] [place] [address] PCP - General Internal Medicine 11/03/24 documented as of this encounter
--- OUTSIDE RECORDS SUMMARY | 2025-09-10 00:20 | XMS_ITS | Continuity of Care Document ---
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 07/31/2025 Humalog Llowobn863Fowb/ML Solution Pen-Inject inject 10 units subcutaneously three times daily, before meals 30ml E11.9 Susan Bui M.D. 04/24/2025 Novolog Zhvqnfa598Oeen/ML Solution Pen-Inject inject 10 subcutaneously units 3 times a day before meals 30ml E11.42 Susan Bui M.D. 06/30/2024 Baqsimi One Tieq4ji/Dose Powder spray into nostril as needed for low sugar reaction 1units Susan Bui M.D. 02/14/2024 Slagmcpodaolpppaluk19i g Tablets 1 by mouth every day Unknown Etyjsvvyi550-5.5mcg/Ac t Aerosol inhale 2 puffs by mouth twice daily Unknown Estradiol0.01% Cream Apply Pea-Sized Amount To Urethra Daily X 1 Month Then Three Days A Week Thereaf Unknown Methenamine Vaqhfqndi7wi Tablets Take 1 Tablet By Mouth Daily Unknown Naltrexone PYX88ag Tablets 1 by mouth every day Unknown Pantoprazole Refgzo92st Tablets DR Take 1 Tablet By Mouth Every Morning (Before Breakfast) For 360 Days. Unknown Chgjkrfik26rz Tablets Take 1 Tablet By Mouth Every Day For 30 Days Lynnette Cardona MD Atorvastatin Guripgn42mk Tablets 1 by mouth every day Unknown Amlodipine Jzzqopoa9yb Tablets Take 1 Tablet (5 MG Total) By Mouth Daily. Unknown Repatha Ppymwvtwk670cw/ml Solution Auto-Inject inject 1 syringe under the skin every 2 weeks Unknown Aspirin 8181mg Tablets DR 1 by mouth every day Susan Bui M.D. Hydroxyzine SWQ84nl Tablets Take 1 Tablet By Mouth Every Day as Needed Unknown Dexcom G6 SensorMisc use 1 sensor every 10 days 3units E11.42 Susan Bui M.D. Dexcom G6 SensorMisc Please See Attached For Detailed Directions Unknown Zjoxhmkmpx476wx Capsules Take 2 Capsule By Mouth Three Times A Day Unknown Dexcom G6 TransmitterMisc To Use With Sensors DX E11.42 1units E11.42 Susan Bui M.D. Albuterol Sulfate BSQ637(90Base) mcg/Act Aerosol Take 2 Puffs By Mouth Every 4 Hours as Needed For Wheeze Unknown Ipratropium Bromide0.06% Solution Administer 2 Sprays Into Each Nostril Every 6 Hours as Needed For Rhinitis. Unknown Hyoscyamine Sulfate0.125mg Tablets Take 1 Tablet By Mouth 4 Times Daily as Needed For Cramping Or Diarrhea For Up T Unknown Basaglar Cnpwykl237Khpu/ML Solution Pen-Inject Inject 55 Units Into The Skin AT Bedtime 60ml E11.42 Susan Bui M.D. Trazodone NRB497hg Tablets Take 1 Tablet By Mouth Everyday [...] Inhouse Hemoglobin A1c 6.9% Gad65 Autoantibodies 08/15/2023 [facility] Gad65 Autoantibodies <5.0 1 Islet Cell Antibody 512 08/15/2023 [facility] Islet Cell Antibody 512 <7.5 2 Insulin Antibody 08/15/2023 [facility] Insulin Antibody 12 High 3 1 Reference range: 0.0 to 5.0 Unit: U/mL Test performed at [address], [place] [address] 2 Unit: U/mL (NOTE) Reference Range: <7.5 Negative > or EQ 7.5 Positive Test performed by [employer], [address] [facility], [place] [address] 3 Unit: uU/mL (NOTE) This test is also known as insulin autoantibody or IAA. This test was developed and its performance characteristics determined by [facility]. It has not been cleared or approved by the Food and Drug Administration. 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 07/31/2025 Z79.4 senior care (current) use of i nsulin Susan Bui M.D. Plan of Treatment Future Appointment(s):* 11/30/2025 3:00 pm - Susan Bui M.D. at Main Office 08/10/2023 - Susan Bui M.D.* E11.42 Type 2 diabetes mellitus with diabetic polyneuropathy Functional Status Description No Information Available Mental Status Description No Information Available Referrals Refer to Reason for Referral Status Appt Chip Meyer MD POSSIBLE SEIZURES Closed [address] [place] [address] [address] [place] [address] [phone]
--- OUTSIDE RECORDS SUMMARY | 2025-09-10 00:20 | XMS_ITS | Encounter Summary ---
Author Organization [facility] Address [address] [place] [address] Care Team Providers Care Maternal Child Nurse Name Role Phone Ranjana Villarreal PA-C Primary Care Provi erika Encounter Details Date Type Department Care Team (Late st Contact Info) Description 12/09/2024 Scanned Document [facility] PULMONOLGY SCAN Pulmonary, Scan Social [...] 9:45 AM EST Appointment [facility] [address] [phone] Kemar Storey MD [address] [address] 09/18/2025 8:00 AM EST Telemedicine Clinical Support [facility] [place] [facility] 32 [facility] 1st [place] [phone] Meredith Waters, MARY 31 [facility] [address] [address] Reji Amos, DILIP 32 [place], [place] [phone] 09/29/2025 7:30 AM EST Appointment [facility] [address] [phone] Kemar Storey MD [address] [address] 10/06/2025 7:40 AM EST Office Visit [address] [phone] Maria D Hinojosa, HOSIERY MENDER [address] [place] [address] 11/03/2025 7:30 AM EST Office Visit [facility] [address] [phone] Milan Rodriguez APRN [address] [address] 11/24/2025 8:00 AM EST Office Visit [address] [phone] Ranjana Villarreal PA-C [address] [place] [address] documented as of this encounter Visit Diagnoses Not on filedocumented in this encounter Care Teams Maternal Child Nurse Relationship Specialty Start Date End Date Ranjana Villarreal PA-C [address] [place] [address] PCP - General Internal Medicine 11/03/24 documented as of this encounter
--- OUTSIDE RECORDS SUMMARY | 2025-09-10 00:20 | XMS_ITS | Clinical Summary ---
Author Organization [facility] Address [address] [place] [address] Care Team Providers Care Field Return Repairer Name Role Phone Unavailable Primary Care Provider [...]
--- OUTSIDE RECORDS SUMMARY | 2025-09-10 00:20 | XMS_ITS | Encounter Summary ---
Author Organization [facility] Address [address] [place] [address] Care Team Providers Care Pulmonologist Name Role Phone Ranjana Villarreal PA-C Primary Care Provi erika Encounter Details Date Type Department Care Team (Late st Contact Info) Description 03/19/2025 Scanned Document [facility] [address] [place] [address] Pulmonary, Scan Social History Tobacco Use Types [...] 09/15/2025 9:45 AM EST Appointment [facility] [address] [phone] Kemar Storey MD 499 [facility] [address] [place] [address] 09/18/2025 8:00 AM EST Telemedicine Clinical Support [facility] [place] [facility] 32 [facility] 1st [place] [phone] Meredith Waters NP 31 [facility] [address] [address] Reji Amos, DILIP 32 [place] [address] 09/29/2025 7:30 AM EST Appointment [facility] [address] [phone] Kemar Storey MD [address] [address] 10/06/2025 7:40 AM EST Office Visit [facility] [address] [phone] Maria D Hinojosa, MEDICAL TRANSLATOR 6[address] [place] [address] 11/03/2025 7:30 AM EST Office Visit [facility] [address] [phone] Milan Rodriguez APRN 499 [facility] [address] [place] [address] 11/24/2025 8:00 AM EST Office Visit [facility] [place] [address] [place] [phone] Ranjana Villarreal PA-C [address] [place] [place] [address] documented as of this encounter Visit Diagnoses Not on filedocumented in this encounter Care Teams Pulmonologist Relationship Specialty Start Date End Date Ranjana Villarreal PA-C [address] [place] [address] PCP - General Internal Medicine 11/03/24 documented as of this encounter
--- OUTSIDE RECORDS SUMMARY | 2025-09-10 00:20 | XMS_ITS | Clinical Summary ---
Author Organization [facility] Prior to 02/28/25 Address [address] [place] [address] Care Team Providers Care Etcher Aircraft Name Role Phone Unavailable Primary Care Provider [...] Mathis Personal/Family Self 1965 [address] [place] [address]
--- OUTSIDE RECORDS SUMMARY | 2025-09-10 00:20 | XMS_ITS | Encounter Summary ---
Author Organization [facility] Address [address] [place] [address] Care Team Providers Care Cook Short Order Name Role Phone Ranjana Villarreal PA-C Primary Care Provi erika Encounter Details Date Type Department Care Team (Late st Contact Info) Description 07/31/2025 Scanned Document [facility] [address] [place] [address] Urology, Scan Social History Tobacco Use Types [...] and Family Not on file 07/27/2025 Attends Nondenominational Services Not on file 07/27 Active Member [...] in the past 12 m [facility], were you homeless or living in a senior living (including now)? No 07/27/2025 [facility] Utilities Answer Date Recorded In the [...] 9:45 AM EST Appointment [facility] [address] [address] Kemar Storey MD 499 [facility] [address] [place] [address] 09/18/2025 8:00 AM EST Telemedicine Clinical Support [facility] [place] [facility] 32 [facility] 1[address] [place] [phone] Meredith Waters NP 31 [facility] [address] [address] Reji Amos, DILIP 32 [place] [address] 09/29/2025 7:30 AM EST Appointment [facility] [address] [address] Kemar Storey MD [address] [address] 10/06/2025 7:40 AM EST Office Visit [facility] Medical [address] [phone] Maria D Hinojosa, DIRECTOR DISTRIBUTION [address] [place] [address] 11/03/2025 7:30 AM EST Office Visit [facility] [address] [phone] Milan Rodriguez APRN [address] [address]87[address] 11/24/2025 8:00 AM EST Office Visit [facility] [place] [address] [place] [address] Ranjana Villarreal PA-C [address] [place] [address] documented as of this encounter Visit Diagnoses Not on filedocumented in this encounter Care Teams Cook Short Order Relationship Specialty Start Date End Date Ranjana Villarreal PA-C [address] [place] [address] PCP - General Internal Medicine 11/03/24 documented as of this encounter
== END 2025-09-09 16:01 | disposition home or self-care (01) ==
LOC: HO.HKAE 15:42
PROVIDERS: PCP Physician Assistant Medical; Visit Provider Internal Medicine Hypertension Specialist
DX: I12.9 Hypertensive chronic kidney disease with stage 1 through stage 4 chronic kidney disease, or unspecified chronic kidney disease (principal); E87.5 Hyperkalemia; N18.9 Chronic kidney disease, unspecified; E66.9 Obesity, unspecified; D64.9 Anemia, unspecified
CPT/HCPCS: 99214